=== PATIENT | male | born 1950 | race Caucasian/White ===

== ENCOUNTER → 2019-01-16 10:16 | Outpatient (CLI) | payer MEDICARE, OTHER, SELFPAY ==
[2016-04-17 13:36] VITALS: BMI 30.6
[2019-01-11 08:28] VITALS: BMI 32.9
[2019-01-16 12:08] LABS: PSA,Total - Annual Screen > 2000.00 ng/mL (0.00-4.00)
[2019-01-16 17:01] LABS: Bacteria 0 SEEN /hpf (None Seen); Mucous, Urine 0 SEEN /hpf (<or=2+); Red Blood Cells-Urine 0 SEEN /hpf (0-5); Squamous Epithelial Cells - UA 0 SEEN /hpf (0-5); White Blood Cells 0 SEEN /hpf (0-5)
[2019-01-16 17:12] LABS: Color, Urine Yellow (Yellow); Glucose, Dipstick Normal (Normal); Ketone-Dipstick Negative (Negative); Leukocyte Esterase-Dipstick Negative /ul (Negative); Nitrite-Dipstick Negative (Negative); Occult Blood-Urine 25 /ul (Negative); Protein-Dipstick Negative (Negative); Specific Gravity, Urine 1.015 (1.002-1.030); Urine Bilirubin Dipstick Negative (Negative); Urine Clarity Clear (Clear); Urine Urobilinogen Normal (Normal)
== END ==
PROVIDERS: Family Provider Family Medicine; PCP Family Medicine; Referring Provider Nurse Practitioner Adult Health; Visit Provider Nurse Practitioner Adult Health
DX: R31.9 Hematuria, unspecified (principal); Z12.5 Encounter for screening for malignant neoplasm of prostate
CPT/HCPCS: 36415; 81001; 84153; G0103

== ENCOUNTER → 2019-01-24 08:15 | Outpatient (CLI) | payer MEDICARE, OTHER, SELFPAY ==
[2016-04-17 13:36] VITALS: BMI 30.6
[2019-01-11 08:28] VITALS: BMI 32.9
--- NOTE | 2019-01-24 08:15 | PROSBIL_PTH ---
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 Regan Guzman MD : 1950 BED: DIS: SPEC #: [id number] RECD: 01/24/19 17:00 STATUS: MAYANK EMIL #: [id number] MEGHAN: 01/24/19 08:[address]: Regan Guzman DEPT: SURGICAL PATHOLOGY RECD BY: Luisito Richards ENTERED: 01/25/19 12:46 SP TYPE: PROST BX FREDDIE DR: Dr. Lisset Barrera DO Tissues: A - PROSTATE RIGHT B - PROSTATE RIGHT C - PROSTATE RIGHT D - PROSTATE LEFT E - PROSTATE LEFT F - PROSTATE LEFT Procedures: PROSTATE BX HEADER OPERATION: Prostate biopsy PRE-OP DIAGNOSIS: Elevated PSA TISSUE SUBMITTED: A - Right apex, B - Right mid, C - Right base, D - Left apex, E - Left mid, F - Left base MICROSCOPIC DIAGNOSIS A. Right prostate, apex, core biopsy: Mild chronic inflammation. B. Right prostate, mid, core biopsy: Benign prostatic tissue. C. Right prostate, base, core biopsy: Minimal chronic inflammation. D. Left prostate, apex, core biopsy: Adenocarcinoma: Rohit grade: 7 (3+4) Cores involved: 1 out of 1 core Tissue involved: 80% Greatest tumor length: 5 mm Perineural Invasion: Present E. Left prostate, mid, core biopsy: Adenocarcinoma: Rohit grade: 10 (5+5) Cores involved: 1 out of 1 core Tissue involved: 100% Greatest tumor length: 7.5 mm F. Left prostate, base, core biopsy: Adenocarcinoma: Rohit grade: 7 (4+3) Cores involved: 1 out of 1 core Tissue involved: 100% Greatest tumor length: 13 mm Perineural Invasion: Present AM:dilan 01/26/19 COMMENT Case has been reviewed in consultation with Dr. Mckay who concurs with the above diagnosis. IDC:SJ MICROSCOPIC DESCRIPTION Slides are reviewed. GROSS DESCRIPTION A - Received is one container designated prostate, right apex. The specimen consists of one elongated fragment of light taveras-white soft tissue measuring 0.8 cm in length and 0.1 cm in diameter. The specimen is totally submitted in one cassette. B - Received is one container designated prostate, right mid. The specimen consists of one elongated fragment of light taveras-white soft tissue measuring 1 cm in length and 0.1 cm in diameter. The specimen is totally submitted in one cassette. C - Received is one container designated prostate, right base. The specimen consists of one elongated fragment of light taveras-white soft tissue measuring 1.2 cm in length and 0.1 cm in diameter. The specimen is totally submitted in one cassette. D - Received is one container designated prostate, left apex. The specimen consists of one elongated fragment of light taveras-white soft tissue measuring 0.6 cm in length and 0.1 cm in diameter. The specimen is totally submitted in one cassette. E - Received is one container designated prostate, left mid. The specimen consists of one elongated fragment of light taveras-white soft tissue measuring 1 cm in length and 0.1 cm in diameter. The specimen is totally submitted in one cassette. F - Received is one container designated prostate, left base. The specimen consists of one elongated fragment of light taveras-white soft tissue measuring 1.5 cm in length and 0.1 cm in diameter. The specimen is totally submitted in one cassette. / SJ:rg 01/25/19 TC:0 CPT: G0146
== END ==
PROVIDERS: Family Provider Family Medicine; PCP Family Medicine; Referring Provider Urology; Visit Provider Urology
DX: R97.20 Elevated prostate specific antigen [PSA] (principal)
CPT/HCPCS: 88305; G0416

== ENCOUNTER → 2019-01-31 07:39 | Outpatient (CLI) | payer MEDICARE, OTHER, SELFPAY ==
[2016-04-17 13:36] VITALS: BMI 30.6
[2019-01-11 08:28] VITALS: BMI 32.9
--- NOTE | 2019-01-31 07:42 | CT_ITS ---
STUDY: CT ABDOMEN AND PELVIS WITH CONTRAST REASON FOR EXAM: Male, 68 years old. Prostate carcinoma. Elevated PSA RADIATION DOSAGE (If Supplied By Facility): CTDIvol = ( 19.24 ) mGy, DLP = ( 2197.11 ) mGycm TECHNIQUE: Transaxial images were obtained from the dome of the diaphragm to the symphysis pubis with oral contrast. Isovue 300 100 IV/Oral was administered. Sagittal and coronal images were reconstructed. Individualized dose optimization techniques were used for this CT. COMPARISON: 11/22/2015 FINDINGS: The visualized lung bases are unremarkable. Mild cardiomegaly. Normal liver. There are multiple gallstones. Densely calcified mass in the left portion of the spleen measuring 2.5 x 2.1 cm. Stable from prior exam, otherwise spleen is within normal limits. Normal pancreas. Normal bilateral adrenal glands. Bilateral large nonenhancing renal cysts. Otherwise, unremarkable kidneys. These are stable from prior exam. Normal visualized stomach. Normal small intestine. There are multiple colonic diverticula consistent with diverticulosis. The appendix is visualized and appears normal. Surrounding the aorta, there is extremely large and bulky lymphadenopathy. Largest conglomerate of lymph nodes to the left of the aorta measuring 6.8 x 5.2 cm. There is extension of bulky diffuse lymphadenopathy along the left pelvic sidewall as well as multiple abnormal lymph nodes in the right pelvic sidewall. Normal inferior vena cava. Urinary bladder is partially decompressed. Questionable wall thickening. Markedly enlarged and heterogeneous enhancing prostate. There is a small umbilical hernia containing fat. Numerous punctate sclerotic foci throughout the osseous structures compatible with metastatic disease. Not clearly seen on the exam from November 2015 CT/Abdomen/Pelvis WITH Contrast IMPRESSION: 1. Extremely bulky lymphadenopathy in the retroperitoneal and para-aortic distribution as well as the left greater than right pelvic sidewall. Could represent lymphoma versus metastatic prostate carcinoma or new malignancy. 2. Development of sclerotic foci throughout the osseous structures compatible with metastatic disease, new from exam in 2015 3. Stable calcified splenic mass 4. Stable bilateral renal cysts 5. Stable cholelithiasis without evidence of acute cholecystitis Electronically Signed: Brandon Navarrete DO at 12:16 EDT Tel , Service support ,
[2019-01-31 08:01] LABS: CREATININE FINGERSTICK 1.3 mg/dL (0.70-1.30)
== END ==
PROVIDERS: Family Provider Family Medicine; PCP Family Medicine; Referring Provider Urology; Visit Provider Urology
DX: C61 Malignant neoplasm of prostate (principal)
CPT/HCPCS: 74177; Q9967

== ENCOUNTER → 2019-02-06 10:43 | Outpatient (CLI) | payer MEDICARE, OTHER, SELFPAY ==
[2016-04-17 13:36] VITALS: BMI 30.6
[2019-01-11 08:28] VITALS: BMI 32.9
--- NOTE | 2019-02-06 10:46 | NM_ITS ---
CLINICAL: 68-year-old male with reported history of carcinoma of the prostate. WHOLE BODY 99m Tc MDP RADIONUCLIDE BONE SCINTIGRAPHY COMPARISON: CT of the abdomen-pelvis 01/31/2019 FINDINGS: Following the intravenous administration of 25.0 mCi of 99m Tc MDP, whole body bone images reveal: 1. Increased radiopharmaceutical concentration is identified in the bilateral anterolateral sixth ribs, left posterior lateral 10th rib. 2. Facilitated uptake is noted in the patellofemoral compartments of both knees, the acromioclavicular compartments of the bilateral shoulders, glenohumeral compartment of the right shoulder, sternoclavicular compartment of the left shoulder, upper cervical spine posteriorly on the right. 3. The remaining skeletal structures are scintigraphically unremarkable with normal-appearing renal images and urinary bladder activity identified. NM/Bone Scan Whole Body IMPRESSION: 1. The increase in radiopharmaceutical concentration identified in the bilateral ribs may be further investigated with plain film radiography in the setting of known prostate carcinoma. 2. Degenerative arthritis appears expressed in the right and left shoulders, bilateral knees, the upper cervical spine. 3. There is no definitive typical scintigraphic evidence of diffuse skeletal metastatic disease on the current examination. The multiple sclerotic changes noted within the axial skeletal structures reported on CT of the abdomen and pelvis dated 01/31/2019 demonstrate no scintigraphic correlate on the present conventional bone scintigraphy study. Electronically Signed: Leonel Harrington DO at 10:05 EDT Tel , Service support ,
== END ==
PROVIDERS: Family Provider Family Medicine; PCP Family Medicine; Referring Provider Urology; Visit Provider Urology
DX: C61 Malignant neoplasm of prostate (principal)
CPT/HCPCS: 78306

== ENCOUNTER 2019-02-10 06:41 | Day surgery (SDC) | payer MEDICARE, OTHER, SELFPAY ==
[2016-04-17 13:36] VITALS: BMI 30.6
[2019-02-09 09:28] VITALS: BMI 33.0
--- NOTE | 2019-02-09 09:49 | HP_ITS ---
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 Allergies sulfamethoxazole [From Bactrim] Allergy (Verified 02/09/19 09:27) Rash trimethoprim [From Bactrim] Allergy (Verified 02/09/19 09:27) Rash Medications Lisinopril [Zestril] 40 mg PO DAILY 12/09/15 [History Confirmed 02/09/19] Metoprolol Tartrate [Lopressor (Beta [place])] 25 mg PO BID 12/09/15 [History Confirmed 02/09/19] amlodipine 5 mg tablet 10 mg PO DAILY tab 01/03/18 [History Confirmed 02/09/19] [facility] Medical History Hairy cell leukemia (Chronic) Sleep apnea (Chronic) Hypertension (Chronic) Obesity (Chronic) Elevated PSA (Acute) Prostate cancer (Acute) Agranulocytosis secondary to cancer chemotherapy (Acute) Drug induced neutropenia (Acute) Fatty liver disease (Acute) Hematuria (Acute) Pancytopenia (Acute) High risk medication use (Chronic) KATHY (obstructive sleep apnea) (Chronic) Kidney stones (Resolved) Surgical History History of prostate biopsy (Acute) Basal cell carcinoma of nose (Resolved) Family History Mother Hypertension CVA (cerebral vascular accident) Breast cancer Sister CVA (cerebral vascular accident) Social History Smoking Status: Never smoker second hand exposure: No alcohol intake: never substance use type: does not use ROS General General: No weight change, appetite, fatigue, colon cancer, breast cancer or weakness Additional Details: hx hairy cell leukemia, prostate cancer HEENT HEENT: No difficulty swallowing, eye injury, eye surgery, swollen glands or hoarseness Cardio Cardiovascular: Yes high blood pressure; no murmur, pacemaker, heart disease, atrial fibrillation, heart attack, heart stent, palpitations, shortness of breat with exertion or chest pain Resp Respiratory: No shortness of breath, Yes sleep apnea, No cough, No COPD, No asthma, No emphysema, No wheezing Gastro Gastrointestinal: No abdominal pain, No nausea or vomiting, No diarrhea, No constipation, No blood in stool, No acid reflux, No hemorrhoids, No ulcers, No gallbladder problem, No black,tarry stools Neuro Neurologic: No weakness Exam Const General: cooperative, healthy appearing, comfortable, no acute distress Nutritional Appearance: overweight Orientation: alert, awake, oriented x3 HENMT Head: normal to inspection Eyes General: appearance normal, both eyes and all related structures Resp Effort & Inspection: normal respiratory effort Auscultation: clear to auscultation bilaterally Cardio Rate: regular rate Rhythm: regular rhythm Heart Sounds: no murmurs GI Palpation: soft, no hepatosplenomegaly Auscultation: normal bowel sounds Skin General: no rashes or lesions noted Neuro General: alert, awake Extrem Other: 3+ bilateral lower extremity pitting edema Psych Affect: normal affect Assessment & Plan Problems 1. 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 Unfortunately has metastatic prostate cancer to pelvic lymph nodes. He has significant bilateral lower extremity pitting edema likely related to outflow drainage per lymphatic issues. I propose for him a right internal jugular port placement. We have discussed the technique, benefit, risks, alternatives. He has had an opportunity to ask and have questions answered. He is hoping to be able to start chemotherapy next week. We will try to schedule and expedite his care. In so doing I anticipate placing a port for him tomorrow. We will schedule and expedite management as noted. He is comfortable with this approach. I very much appreciate the kind opportunity of assisting with surgical care. CC: Drs. Denis and Holly and Sneha Jacobs M.D., F.A.C.S. 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
[2019-02-10] VITALS (11 sets, daily range): BP systolic 97–135; BP diastolic 57–79; PULSE 46–54; RESP 16–18; TEMP 36.3–36.6; O2SAT 90–96; BMI 32.8
[2019-02-10] MEDS: Cefazolin 2 GM in 0.9% Normal Saline 100 ML IV (09:12)
--- NOTE | 2019-02-10 09:12 | DCINST_ITS ---
Discharge Diet: Light diet - advance as tolerated - if you have questions about your diet instructions, please talk to you doctor. Discharge Activity: May Not Drive - for 1 day or while taking narcotic pain medicine. May shower in (days): 1 Lifting Restrictions: 10 pounds Call your doctor if your incision/area has: Continuous Slow Oozing, Sudden Increased Bleeding, Increased Pain/ Swelling, Increased Redness, Foul Smelling Discharge Call your doctor if you observe: Fever of 101 or Higher Suture Line Care: Avoid Pulling/Pushing, Avoid Pinching/Bending Additional Dressing/Incision Instructions:: Change or remove dressing in 4 days. Leave steri-strips in place for 1 week. Allergies/Adverse Reactions: Allergies sulfamethoxazole [From Bactrim] Allergy (Verified 02/09/19 12:44) Rash trimethoprim [From Bactrim] Allergy (Verified 02/09/19 12:44) Rash Medications to take at Discharge Lisinopril [Zestril] 40 mg PO DAILY 12/09/15 Metoprolol Tartrate [Lopressor (Beta [place])] 25 mg PO BID 12/09/15 amlodipine 5 mg tablet 10 mg PO DAILY tab 01/03/18 Hydrocodone Bitart/Apap 5-325 [[place] 5MG-325MG] 1 tab PO Q6H PRN PRN 2 Days #5 tab 02/10/19 The following prescriptions were given: Hydrocodone Bitart/Apap 5-325 [[place] 5MG-325MG] 1 tab PO Q6H PRN PRN 2 Days #5 tab PRN Reason: Pain Primary Care Physician: Abel Barrera DO [Primary Care Provider] - Test Results: Test results from this visit will be discussed in further detail at your follow- up appointment, if applicable. Please Follow Up With: Tremayne Jacobs MD - [phone] When: Further office appts. can be as you need
[2019-02-10] MEDS: Bupivacaine Mpf 0.5% 30 ML VIAL (09:30)
--- NOTE | 2019-02-10 09:45 | PCM.OPRPT ---
Problem List (1) Prostate cancer metastatic to bone Status: Acute Report of Operation Date of Procedure: 02/10/19 Pre-Operative Diagnosis: Metastatic prostate cancer Post-Operative Diagnosis: same Surgery/Procedure Performed:: Right internal jugular 6 [place] power port placement Description of Surgical Findings:: Timeout and informed consent was obtained. 68-year-old gent was taken to the operating room placed on the table Ancef 2 g given intravenous preoperatively he underwent monitored anesthesia care and local anesthetic the right neck and chest were sterilely prepped and draped ultrasound was used to identify the right internal jugular vein under ultrasound guidance 1% lidocaine mixed 50-50 with 0.5% Marcaine was used as a local anesthetic total of 13 cc was used. Local was instilled micropuncture needle inserted micropuncture wire inserted local instilled down upon the chest wall transverse incision was created and electrocautery was used to make the subtenons pocket the tubing was tunneled from the chest to the neck site a micropuncture sheath dilator was placed over the wire the wire and dilator were removed and an 035 J-wire was inserted sheath dilator was inserted after fluoroscopic confirmation the wire and to remove the catheters into the sheath the sheath was split the catheter was positioned at the SVC atrial junction it was amputated length connected to the port and secured there with a port attachment device the port was placed in the pocket and secured there with interrupted 2-0 silk the pocket was closed interrupted 3-0 Vicryl subdermal stitches the neck was closed with interrupted 5-0 Vicryl. Steri-Strips and Telfa and OpSite dressings applied. Sponge and instrument and needle counts were reported the surgery were correct. Blood loss was minimal. Specimens none. Drains none. Blood loss minimal. The patient was taken to the recovery area in satisfactory condition without apparent complication and stat portable chest x-ray is pending. Tremayne Jacobs M.D., F.A.C.S. Type of Anesthesia:: Local MAC Anesthesiologist: Lv Langston
--- NOTE | 2019-02-10 10:05 | RAD_ITS ---
STUDY: X-RAY CHEST REASON FOR EXAM: Male, 68 years old. Line placement TECHNIQUE: Portable upright chest COMPARISON: 12/09/2015 FINDINGS: Right Mediport catheter tip in distal SVC. No effusion or pneumothorax, clear lungs. Stable cardiomegaly. Ectatic aortic arch. No acute osseous or upper abdominal process. RAD/Chest 1 View (Portable) IMPRESSION: Catheter tip in distal SVC. No acute postprocedure complication. Electronically Signed: Leonel Junior MD at 10:43 EDT Tel , Service support ,
== END 2019-02-10 11:48 | disposition home or self-care (01) ==
LOC: SDC 06:41 → AC 06:42
PROVIDERS: Family Provider Family Medicine; PCP Family Medicine; Referring Provider Surgery; Visit Provider Surgery
PROC: (CPT 36561; principal; 2019-02-10 08:30)
DX: Z45.2 Encounter for adjustment and management of vascular access device (principal); C61 Malignant neoplasm of prostate; C79.51 Secondary malignant neoplasm of bone; Z85.6 Personal history of leukemia; Z79.899 Other long term (current) drug therapy; I10 Essential (primary) hypertension; E66.9 Obesity, unspecified; Z68.32 Body mass index [BMI] 32.0-32.9, adult; Z71.3 Dietary counseling and surveillance; G47.33 Obstructive sleep apnea (adult) (pediatric)
CPT/HCPCS: 00532; 36561; 71045; 77001; J7120

== ENCOUNTER → 2019-02-13 14:11 | Outpatient (CLI) | payer MEDICARE, OTHER, SELFPAY ==
[2016-04-17 13:36] VITALS: BMI 30.6
[2019-02-08 10:33] VITALS: BMI 33.0
[2019-02-10 06:59] VITALS: BMI 32.8
--- NOTE | 2019-02-13 14:13 | CT_ITS ---
STUDY: CT CHEST/THORAX WITH CONTRAST REASON FOR EXAM: Male, 68 years old. Prostate cancer, elevated PSA. History of hairy cell leukemia treated with chemotherapy. RADIATION DOSAGE (If Supplied By Facility): CTDIvol = ( 19.11 ) mGy, DLP = ( 653.43 ) mGycm TECHNIQUE: Transaxial imaging was performed following intravenous administration of 100 IV Isovue 300. Multiplanar coronal and sagittal images were reformatted. Individualized dose optimization techniques were used for this CT. COMPARISON: Portable AP upright chest x-ray post port placement February 10, 2019; CTA chest November 27, 2015. FINDINGS: The hub of the indwelling Port-A-Cath is in the medial soft tissues of the anterior upper left chest wall. Catheter tip projects just below the cavoatrial junction There is minor subsegmental line loss in the medial posterior right lung base. Left lung is clear and expanded There is no demonstrated pleural abnormality. Normal heart and pericardium. Normal mediastinum. Normal hilar regions. Normal enhanced pulmonary arteries. There is atherosclerotic calcification of the aortic arch. There is some tortuosity of the distal descending thoracic aorta. There are numerous subcentimeter rounded sclerotic densities scattered in the visualized osseous structures. There are degenerative changes of the visualized lower cervical spine and thoracolumbar juncture. Slight anterior wedging of the T11 and T12 vertebrae as well as straightening of the thoracic kyphosis. Incidental note of chronic appearing discontinuity in the costal cartilage calcifications of the bilateral first ribs. There are number of subcentimeter rim calcified stones in the gallbladder. No mural thickening of the gallbladder nor pericholecystic fluid to indicate cholecystitis. Not fully included in the field of view, there are large cortical cysts of the visualized upper pole of each kidney. On the right this measures 9 x 8.5 cm, while on the left, the cyst is 9.[address]/Chest WITH Contrast IMPRESSION: 1. No acute cardiopulmonary disease. 2. Right chest wall Port-A-Cath in place. 3. Numerous subcentimeter rounded sclerotic densities scattered in the visualized osseous structures, new since 2016. These did not show overtly abnormal uptake on nuclear medicine bone scan of February 06, 2019, however. 4. Gallstones. No CT sign of acute cholecystitis. 5. Not fully included in field of view, there are large cortical cysts in the upper poles of the bilateral kidneys. Electronically Signed: Scotty Salinas MD at 10:12 EDT , Service support ,
== END ==
PROVIDERS: Family Provider Family Medicine; PCP Family Medicine; Referring Provider Internal Medicine Medical Oncology; Visit Provider Internal Medicine Medical Oncology
DX: C61 Malignant neoplasm of prostate (principal)
CPT/HCPCS: 71260; Q9967

== ENCOUNTER → 2019-06-20 | Outpatient (CLI) | payer MEDICARE, OTHER, SELFPAY ==
[2016-04-17 13:36] VITALS: BMI 30.6
[2019-06-15 11:00] VITALS: BMI 34.2
[2019-06-20 09:38] LABS: Absolute Lymphocyte Count 0.82 X10^3/uL (0.83-4.51); Absolute Neutrophil Count 3.7 X10^3/uL (2.0-7.7); Basophil# 0.07 X10^3/uL; Basophil% 1.3 % (0-1); Eosinophil# 0.04 X10^3/uL; Eosinophils% 0.7 % (0-5); Hematocrit 38.2 % (40-54); Hemoglobin 12.6 g/dL (13.0-16.5); Lymphocyte # 0.82 X10^3/ul (4.0); Lymphocyte % 15.1 % (19-41); Mean Corpuscular Hgb 29.1 pg (27.0-32.0); Mean Corpuscular Volume 88.2 fL (80-94); Mean Platelet Vol. 9.9 fl (6.2-12.0); Monocyte# 0.74 X10^3/uL; Monocyte% 13.7 % (0-10); NRBC Flagged by Analyzer 0 % (0-5); Neutrophil # 3.72 X10^3/uL (2.7-7.7); Neutrophil % 68.6 % (47-70); Platelet Count 214 K/mm3 (150-450); RBC Distribution Width CV 15.3 % (11.6-14.6); RBC Distribution Width SD 49.1 fl (35.1-43.9); Red Blood Count 4.33 M/mm3 (4.6-6.2); White Blood Count 5.4 K/mm3 (4.4-11.0)
--- NOTE | 2019-06-20 09:39 | NM_ITS ---
CLINICAL: 69-year-old male with history of carcinoma of the prostate with recent traumatic fall and resultant left anterior chest wall pain. WHOLE BODY 99m Tc MDP RADIONUCLIDE BONE SCINTIGRAPHY COMPARISON: Previous whole body bone scintigraphy study dated 02/06/2019, CT of the chest report 02/13/2019 FINDINGS: Following the intravenous administration of 25.2 mCi of 99m Tc MDP, whole body bone images reveal: 1. Newly identified increased tracer concentration is noted in the left anterior fifth-sixth ribs at the costochondral junction, linear in presentation defined in the longitudinal plane. 2. Enhanced tracer concentration is presently visualized in the bilateral knee articulations, right-left shoulders, upper cervical spine posteriorly on the right, right-left ankle articulations, bilateral forefoot. 3. The remaining skeletal structures are scintigraphically unremarkable with normal-appearing renal images and urinary bladder activity identified. An increase in radiotracer distribution remains evident in the bilateral mandible and maxilla most consistent with periodontal disease and/or periostitis. NM/Bone Scan Whole Body IMPRESSION: 1. The increase in radiopharmaceutical concentration identified in the left anterior fifth-sixth ribs is most consistent with trauma-fracture. 2. Degenerative arthritis is defined in the bilateral knees and shoulders, cervical spine, ankles bilaterally, right-left forefoot. 3. Overall compared to the previous whole-body bone scintigraphy study dated 02/06/2019, there is current expression of apparent acute trauma-fracture involving the left anterior fifth-sixth ribs as described above. There is no significant interval change with no current typical scintigraphic evidence of diffuse axial skeletal metastatic disease on the present examination. Electronically Signed: Leonel Harrington DO at 12:23 EDT Tel , Service support ,
== END | disposition home or self-care (01) ==
LOC: NM 09:27
PROVIDERS: Family Provider Family Medicine; PCP Family Medicine; Referring Provider Nurse Practitioner Family; Visit Provider Nurse Practitioner Family
DX: C61 Malignant neoplasm of prostate (principal)
CPT/HCPCS: 36415; 78306; 85025

== ENCOUNTER → 2019-06-27 | Outpatient (CLI) | payer MEDICARE, OTHER, SELFPAY ==
[2016-04-17 13:36] VITALS: BMI 30.6
[2019-06-15 11:00] VITALS: BMI 34.2
--- NOTE | 2019-06-27 08:02 | CT_ITS ---
STUDY: CT ABDOMEN AND PELVIS WITHOUT CONTRAST REASON FOR EXAM: Male, 69 years old. Prostate cancer. Also with history of hairy cell leukemia RADIATION DOSAGE (If Supplied By Facility): CTDIvol = ( 16.54 ) mGy, DLP = ( 1249.04 ) mGycm TECHNIQUE: Transaxial images were obtained from the dome of the diaphragm to the symphysis pubis without oral contrast, and without intravenous contrast. Sagittal and coronal images were reconstructed. Individualized dose optimization techniques were used for this CT. COMPARISON: 02/13/2019 and January 31, 2019 FINDINGS: The visualized lung bases are unremarkable. The visualized portions of the heart are within normal limits. Normal liver. There are multiple gallstones. Densely calcified granuloma in the left lobe of the spleen measuring 2.3 x 2.4 cm. Remainder of the spleen is within normal limits Normal pancreas. Normal bilateral adrenal glands. Unchanged bilateral nonenhancing renal cysts, otherwise the kidneys Normal visualized stomach. Normal small intestine. There are multiple colonic diverticula consistent with diverticulosis. The appendix is visualized and appears normal. Normal abdominal aorta. Normal inferior vena cava. As compared to exam from January 31, there has been extensive reduction in size of bulky retroperitoneal and para-aortic lymphadenopathy. The largest lymph node remains in the left para-aortic region near the left inferior pole of the kidney measuring 2.9 x 2.6 cm. This lymph node previously measured 7.1 x 5.2 cm. Normal urinary bladder. Normal visualized prostate gland. Normal abdominal wall. Again noted are sclerotic foci throughout the osseous structures CT/Abdomen/Pelvis W IV Cont ONLY IMPRESSION: 1. As compared to exam from January, there has been very favorable response with marked decrease in size in numerous retroperitoneal and para-aortic bulky lymphadenopathy. 2. Stable sclerotic foci throughout the osseous structures 3. Stable bilateral renal cysts and cholelithiasis Electronically Signed: Brandon Navarrete DO at 8:38 EDT Tel , Service support ,
== END | disposition home or self-care (01) ==
LOC: CT 07:48
PROVIDERS: Family Provider Family Medicine; PCP Family Medicine; Referring Provider Nurse Practitioner Family; Visit Provider Nurse Practitioner Family
DX: K80.20 Calculus of gallbladder without cholecystitis without obstruction (principal); N28.1 Cyst of kidney, acquired; C61 Malignant neoplasm of prostate; Z85.6 Personal history of leukemia
CPT/HCPCS: 74177; Q9967

== ENCOUNTER → 2019-09-25 07:39 | Outpatient (CLI) | payer MEDICARE, OTHER, SELFPAY ==
[2016-04-17 13:36] VITALS: BMI 30.6
[2019-07-06 10:11] VITALS: BMI 33.7
[2019-08-15 10:22] VITALS: BMI 33.9
[2019-08-22 13:32] VITALS: BMI 33.8
--- NOTE | 2019-09-25 07:49 | CT_ITS ---
STUDY: CT ABDOMEN AND PELVIS WITH CONTRAST REASON FOR EXAM: Male, 69 years old. Prostate cancer follow-up RADIATION DOSAGE (If Supplied By Facility): CTDIvol = ( 17.06 ) mGy, DLP = ( 1323.12 ) mGycm TECHNIQUE: Transaxial images were obtained from the dome of the diaphragm to the symphysis pubis without oral contrast. IV/Oral Isovue 300 100 was administered. Sagittal and coronal images were reconstructed. Individualized dose optimization techniques were used for this CT. COMPARISON: June 27, 2019 FINDINGS: Minor atelectasis within the dependent portion of the lungs.. The visualized portions of the heart are within normal limits. Normal liver. Old calcified gallstones without evidence for acute cholecystitis. Rim calcified mass in normal-sized spleen likely representing granuloma Normal pancreas. Normal bilateral adrenal glands. No evidence for renal obstruction or ureteral calculus. There is a large cyst in the upper pole the right kidney and multiple approximately 5 cysts left kidney. Normal visualized stomach. Normal small intestine. Diverticular changes of the colon without evidence for acute diverticulitis The appendix is visualized and appears normal. Atherosclerotic changes of the aorta without evidence for aneurysm Normal inferior vena cava. Multiple mildly enlarged periaortic and aortocaval nodes largest measuring approximately 1.6 cm. Mildly enlarged prostate. Incompletely distended mildly thick-walled bladder. Small fat-containing umbilical wall hernia.. Lumbar spine demonstrates mild spondylosis. There are multiple sclerotic densities seen throughout the lumbar spine and pelvis which may be consistent with metastatic disease. The lymph nodes have decreased in size since prior study. No other significant change since prior study CT/Abdomen/Pelvis WITH Contrast IMPRESSION: Persistent adenopathy with interval reduction in size since prior study. PET scan may be helpful for further evaluation Multiple scattered sclerotic densities in the lumbar spine and pelvis which may be consistent with metastatic disease. Cholelithiasis without evidence for acute cholecystitis Other findings as above Electronically Signed: Shashank Dick MD at 16:57 EST , Service support ,
[2019-09-25 08:01] LABS: CREATININE FINGERSTICK 0.9 mg/dL (0.70-1.30); EGFR FINGERSTICK > 60.0000 mL/min (>60)
[2019-09-25 08:30] LABS: Absolute Lymphocyte Count 1.12 X10^3/uL (0.83-4.51); Absolute Neutrophil Count 3.9 X10^3/uL (2.0-7.7); Basophil# 0.04 X10^3/uL; Basophil% 0.7 % (0-1); Eosinophil# 0.25 X10^3/uL; Eosinophils% 4.2 % (0-5); Hematocrit 40.3 % (40-54); Lymphocyte # 1.12 X10^3/ul (4.0); Mean Corp Hgb Conc 32.3 g/dL (32-36); Mean Corpuscular Hgb 28.7 pg (27.0-32.0); Mean Platelet Vol. 10.6 fl (6.2-12.0); Monocyte# 0.54 X10^3/uL; Monocyte% 9.1 % (0-10); NRBC Flagged by Analyzer 0 % (0-5); Neutrophil # 3.94 X10^3/uL (2.7-7.7); Neutrophil % 66.7 % (47-70); Platelet Count 213 K/mm3 (150-450); RBC Distribution Width CV 14.6 % (11.6-14.6); RBC Distribution Width SD 46.8 fl (35.1-43.9); Red Blood Count 4.53 M/mm3 (4.6-6.2); White Blood Count 5.9 K/mm3 (4.4-11.0)
[2019-09-25 08:52] LABS: ALB/GLOB Ratio 0.9 RATIO (0.9-2.4); AST(SGOT) 16 U/L (15-37); Alanine Aminotransfer ALT/SGPT 28 U/L (16-61); Albumin, Serum 3.7 g/dL (3.2-5.0); Alkaline Phosphatase 70 U/L (45-117); Anion Gap 6 (5-15); BUN 20 mg/dL (7-18); BUN/Creat Ratio 19.2 RATIO (10-20); Calcium,Total 9.1 mg/dL (8.5-10.1); Chloride 104 mmol/L (98-107); Creatinine, Serum 1.04 mg/dL (0.70-1.30); EST Glomerular Filtration Rate 75 mL/min (>60); Est Glom Filt Rate - Afr Amer 91 mL/min (>60); Globulin 4.1 g/dL (2.2-4.2); Glucose 109 mg/dL (74-106); LDH 189 U/L (87-241); Potassium 3.9 mmol/L (3.5-5.1); Protein, Total 7.8 g/dL (6.4-8.2); Sodium Level 140 mmol/L (136-145)
[2019-09-25 15:44] LABS: Xtra Tube EP Lab EXTRA TUBE
== END ==
PROVIDERS: Family Provider Family Medicine; PCP Family Medicine; Referring Provider Internal Medicine Medical Oncology; Visit Provider Internal Medicine Medical Oncology
DX: C61 Malignant neoplasm of prostate (principal)
CPT/HCPCS: 36415; 74177; 80053; 83615; 84153; 85025; Q9967; A4216

== ENCOUNTER → 2020-03-26 11:21 | Outpatient (CLI) | payer MEDICARE, OTHER, SELFPAY ==
[2019-08-22 13:32] VITALS: BMI 33.8
[2020-01-02 10:14] VITALS: BMI 35.5
== END ==
PROVIDERS: PCP Family Medicine; Visit Provider Urology
DX: C61 Malignant neoplasm of prostate (principal)
CPT/HCPCS: 36415; 84153

== ENCOUNTER → 2020-04-16 12:43 | Outpatient (CLI) | payer MEDICARE, OTHER, SELFPAY ==
[2019-08-22 13:32] VITALS: BMI 33.8
[2019-11-02 12:08] VITALS: BMI 34.7
[2020-01-02 10:14] VITALS: BMI 35.5
--- NOTE | 2020-04-16 12:44 | CT_ITS ---
STUDY: CT ABDOMEN AND PELVIS WITH CONTRAST REASON FOR EXAM: Male, 70 years old. PT STATED HX METASTATIC PROSTATE CA RADIATION DOSAGE (If Supplied By Facility): CTDIvol = ( 18.41 ) mGy, DLP = ( 1341.91 ) mGycm TECHNIQUE: Transaxial images were obtained from the dome of the diaphragm to the symphysis pubis without oral contrast. IV 100mL Isovue-300 was administered. Sagittal and coronal images were reconstructed. Individualized dose optimization techniques were used for this CT. COMPARISON: Comparison is made with prior examination dated September 25, 2019. FINDINGS: The visualized lung bases are unremarkable. Coronary artery calcification. Normal liver. There are multiple small gallstones. Stable 1.9 cm x 2.4 cm densely calcified nodular density in the anterior superior aspect of the spleen. There are pancreatic calcifications in the distribution of the ducts consistent with chronic pancreatitis. Normal bilateral adrenal glands. Stable bilateral renal cysts. The largest cyst in the left kidney measures 9.3 cm x 9.7 cm. The largest cyst in the left kidney measures 9.6 cm x 9 cm. Normal visualized stomach. Normal small intestine. Normal colon. The appendix is visualized and appears normal. There is diffuse atherosclerotic calcification of the abdominal aorta and its major visceral branches., without a demonstrated aneurysm. Normal inferior vena cava. Stable retroperitoneal lymphadenopathy in the left para-aortic region as well as the left common iliac region. Normal urinary bladder. Normal abdominal wall. Stable multiple tiny sclerotic densities seen throughout the lumbar vertebrae. There are diffuse degenerative changes of the visualized lumbar spine. CT/Abdomen/Pelvis WITH Contrast IMPRESSION: Stable retroperitoneal lymphadenopathy. Stable bilateral renal cysts. Electronically Signed: Tre Arauz, at 14:34 EDT , Service support ,
== END ==
PROVIDERS: Family Provider Family Medicine; PCP Family Medicine; Referring Provider Internal Medicine Medical Oncology; Visit Provider Internal Medicine Medical Oncology
DX: C61 Malignant neoplasm of prostate (principal)
CPT/HCPCS: 74177; Q9967

== ENCOUNTER → 2020-10-03 09:59 | Outpatient (CLI) | payer MEDICARE, OTHER, SELFPAY ==
[2019-08-22 13:32] VITALS: BMI 33.8
[2020-04-29 13:26] VITALS: BMI 34.2
[2020-10-03 11:33] LABS: PSA,Total- Diagnostic 7.02 ng/mL (0.0-4.0)
== END ==
PROVIDERS: PCP Family Medicine; Referring Provider Urology; Visit Provider Urology
DX: R97.20 Elevated prostate specific antigen [PSA] (principal)
CPT/HCPCS: 36415; 84153

== ENCOUNTER → 2020-10-25 08:05 | Outpatient (CLI) | payer MEDICARE, OTHER, SELFPAY ==
[2019-08-22 13:32] VITALS: BMI 33.8
[2020-04-29 13:26] VITALS: BMI 34.2
--- NOTE | 2020-10-25 08:06 | CT_ITS ---
STUDY: CT ABDOMEN AND PELVIS WITH CONTRAST REASON FOR EXAM: Male, 70 years old. PROSTATE CA WITH CHEMO 1 YEAR AGO. HISTORY OF HAIRY CELL LEUKEMIA RADIATION DOSAGE (If Supplied By Facility): CTDIvol = ( 15.69 ) mGy, DLP = ( 1125.44 ) mGycm TECHNIQUE: Transaxial images were obtained from the dome of the diaphragm to the symphysis pubis without oral contrast. IV 100ML ISOVUE 300 was administered. Sagittal and coronal images were reconstructed. Individualized dose optimization techniques were used for this CT. COMPARISON: Comparison is made with prior study dated 04/16/2020. FINDINGS: There is evidence of groundglass appearance in both lungs worse on the right side. This is new as compared to prior study. Coronary artery calcification. Normal liver. There are multiple gallstones. Stable 2.1 cm x 2.3 cm densely calcified granuloma in the anterior lateral aspect of the spleen. Normal pancreas. Normal bilateral adrenal glands. Stable bilateral renal cysts. Normal visualized stomach. Normal small intestine. There are multiple colonic diverticula consistent with diverticulosis. The appendix is visualized and appears normal. There is diffuse atherosclerotic calcification of the abdominal aorta, without a demonstrated aneurysm. Normal inferior vena cava. Stable left para-aortic adenopathy as well as left iliac adenopathy. Diffuse bladder wall thickening although the bladder is not completely distended. There is a small umbilical hernia containing fat. There are diffuse degenerative changes of the visualized lumbar spine. Stable tiny sclerotic foci seen throughout the lumbar vertebrae. CT/Abdomen/Pelvis W IV Cont ONLY IMPRESSION: Stable examination. Electronically Signed: Tre Arauz, at 14:50 EST , Service support ,
[2020-10-25] MEDS: 0.9 % NaCl (Sterile) Posiflush 10 mL IV (08:25)
[2020-10-25] MEDS: 0.9% Saline Lock 10 ML Syringe IV (08:34)
[2020-10-25 08:36] LABS: CREATININE FINGERSTICK 0.9 mg/dL (0.70-1.30)
== END ==
PROVIDERS: PCP Family Medicine; Referring Provider Internal Medicine Medical Oncology; Visit Provider Internal Medicine Medical Oncology
DX: C61 Malignant neoplasm of prostate (principal); C77.2 Secondary and unspecified malignant neoplasm of intra-abdominal lymph nodes
CPT/HCPCS: 74177; Q9967; A4216

== ENCOUNTER → 2020-12-25 13:10 | Outpatient (CLI) | payer MEDICARE, OTHER, SELFPAY ==
[2019-08-22 13:32] VITALS: BMI 33.8
[2020-10-29 10:58] VITALS: BMI 32.9
--- NOTE | 2020-12-25 13:14 | RAD_ITS ---
STUDY: X-RAY - RIGHT ANKLE REASON FOR EXAM: Lateral pain and swelling, fall last night. TECHNIQUE: 3 view(s) of the ankle. COMPARISON: None. FINDINGS: There is a mildly displaced fracture of the distal fibula extending to the level of the tibiotalar articulation. There is a nondisplaced posterior malleolar fracture. There are anterior tibiotalar intra-articular bodies. There are posterior and plantar calcaneal enthesophytes. The visualized subtalar, talonavicular, calcaneocuboid and tarsal articulations are normal. There is soft tissue swelling. RAD/Ankle min 3 Views IMPRESSION: Fractures of the distal fibula and posterior malleolus. Electronically Signed: Boaz Jordan MD at 14:07 EST Tel , Service support ,
== END ==
PROVIDERS: PCP Family Medicine; Referring Provider Family Medicine; Visit Provider Family Medicine
DX: S82.831A Other fracture of upper and lower end of right fibula, initial encounter for closed fracture (principal); W00.0XXA Fall on same level due to ice and snow, initial encounter; Y93.9 Activity, unspecified; Y92.9 Unspecified place or not applicable; Y99.9 Unspecified external cause status
CPT/HCPCS: 73610

== ENCOUNTER → 2021-04-22 07:45 | Outpatient (CLI) | payer MEDICARE, OTHER, SELFPAY ==
[2019-08-22 13:32] VITALS: BMI 33.8
[2021-01-14 09:43] VITALS: BMI 32.9
--- NOTE | 2021-04-22 07:49 | CT_ITS ---
STUDY: CT ABDOMEN AND PELVIS WITH CONTRAST REASON FOR EXAM: Male, 71 years old. PROSTATE CANCER-MONITOR. History of hairy cell leukemia. RADIATION DOSAGE (If Supplied By Facility): CTDIvol = ( 16.47 ) mGy, DLP = ( 1232.83 ) mGycm TECHNIQUE: Transaxial images were obtained from the dome of the diaphragm to the symphysis pubis with oral contrast. Oral and amp; IV Readi-CAT and amp; 100mL Isovue-300 was administered. Sagittal and coronal images were reconstructed. Individualized dose optimization techniques were used for this CT. COMPARISON: Comparison is made with prior study dated 10/25/2020. FINDINGS: The visualized lung bases are unremarkable. Coronary artery calcification. Normal liver. There are multiple small gallstones. Stable 2.2 cm x 2.3 VINNY densely calcified granuloma in the anterior lateral aspect of the spleen. There are pancreatic calcifications in the distribution of the ducts consistent with chronic pancreatitis. Normal bilateral adrenal glands. Stable bilateral renal cysts. The largest cyst in the right kidney measures 10.6 cm x 10.6 cm and is in the upper pole. The largest cyst in the left kidney measures 9.8 cm x 9.2 cm and is in the upper pole. Normal visualized stomach. Normal small intestine. Normal colon. The appendix is visualized and appears normal. There is scattered atherosclerotic calcification of the abdominal aorta and its major visceral branches, without a demonstrated aneurysm. Normal inferior vena cava. There is borderline retroperitoneal lymphadenopathy with enlarged nodes no greater than 10mm in the short axis diameter. The largest lymph node measures 1.5 cm in transverse dimension and is located in the left para-aortic region on the left side. This has decreased in size as compared to prior study. Stable 1.8 cm lymph node in the left iliac region. Normal urinary bladder. There is a small umbilical hernia containing fat. There are diffuse degenerative changes of the visualized lumbar spine. Stable tiny sclerotic foci in several lumbar vertebrae. CT/Abdomen/Pelvis WITH Contrast IMPRESSION: Interval decrease in size of the left para-aortic lymphadenopathy. Stable 1.8 cm lymph node in the left iliac region. Electronically Signed: Tre Arauz MD at 11:08 EDT , Service support ,
[2021-04-22 08:10] LABS: CREATININE FINGERSTICK 1.1 mg/dL (0.70-1.30); EGFR FINGERSTICK > 60.0000 mL/min (>60)
[2021-04-22] MEDS: 0.9% Saline Lock 10 ML Syringe IV (08:15)
[2021-04-22 08:34] LABS: Absolute Lymphocyte Count 1.16 X10^3/uL (0.83-4.51); Absolute Neutrophil Count 3.3 X10^3/uL (2.0-7.7); Basophil# 0.05 X10^3/uL; Basophil% 0.9 % (0-1); Eosinophil# 0.26 X10^3/uL; Eosinophils% 4.9 % (0-5); Hematocrit 38.7 % (40-54); Hemoglobin 12.3 g/dL (13.0-16.5); Lymphocyte # 1.16 X10^3/ul (0.83-4.51); Lymphocyte % 21.9 % (19-41); Mean Corp Hgb Conc 31.8 g/dL (32-36); Mean Corpuscular Hgb 28.7 pg (27.0-32.0); Mean Corpuscular Volume 90.4 fL (80-94); Mean Platelet Vol. 10.5 fl (6.2-12.0); Monocyte# 0.48 X10^3/uL; Monocyte% 9.1 % (0-10); NRBC Flagged by Analyzer 0 % (0-5); Neutrophil # 3.32 X10^3/uL (2.7-7.7); Neutrophil % 62.8 % (47-70); Platelet Count 191 K/mm3 (150-450); RBC Distribution Width CV 13.7 % (11.6-14.6); RBC Distribution Width SD 45.2 fl (35.1-43.9); Red Blood Count 4.28 M/mm3 (4.6-6.2); White Blood Count 5.3 K/mm3 (4.4-11.0)
[2021-04-22 08:47] LABS: AST(SGOT) 14 U/L (15-37); Alanine Aminotransfer ALT/SGPT 23 U/L (16-61); Albumin, Serum 3.6 g/dL (3.2-5.0); Alkaline Phosphatase 78 U/L (45-117); Anion Gap 5 (5-15); BUN 16 mg/dL (7-18); BUN/Creat Ratio 17.5 RATIO (10-20); Calcium,Total 8.9 mg/dL (8.5-10.1); Chloride 105 mmol/L (98-107); Creatinine, Serum 0.91 mg/dL (0.70-1.30); EST Glomerular Filtration Rate 87 mL/min (>60); Est Glom Filt Rate - Afr Amer 105 mL/min (>60); Globulin 3.7 g/dL (2.2-4.2); Glucose 110 mg/dL (74-106); LDH 171 U/L (87-241); Protein, Total 7.3 g/dL (6.4-8.2); Sodium Level 139 mmol/L (136-145)
== END ==
PROVIDERS: PCP Family Medicine; Referring Provider Internal Medicine Medical Oncology; Visit Provider Internal Medicine Medical Oncology
DX: C61 Malignant neoplasm of prostate (principal); C77.2 Secondary and unspecified malignant neoplasm of intra-abdominal lymph nodes; Z85.6 Personal history of leukemia
CPT/HCPCS: 74177; 80053; 83615; 85025; Q9967; A4216

== ENCOUNTER → 2021-07-11 09:24 | Outpatient (CLI) | payer MEDICARE, OTHER, SELFPAY ==
[2019-08-22 13:32] VITALS: BMI 33.8
[2021-07-11 10:11] LABS: PSA,Total- Diagnostic 6.22 ng/mL (0.0-4.0)
[2021-07-11 17:44] LABS: Xtra Tube EP Lab EXTRA TUBE
== END ==
LOC: LAB.FUTURE 09:28 → MEDOUTP 15:30
PROVIDERS: PCP Family Medicine; Referring Provider Urology; Visit Provider Urology
DX: C61 Malignant neoplasm of prostate (principal); C77.2 Secondary and unspecified malignant neoplasm of intra-abdominal lymph nodes; R31.9 Hematuria, unspecified
CPT/HCPCS: 36591; 84153; A4216

== ENCOUNTER → 2021-10-13 09:49 | Outpatient (CLI) | payer MEDICARE, OTHER, SELFPAY ==
[2019-08-22 13:32] VITALS: BMI 33.8
[2021-10-13 11:07] LABS: PSA,Total- Diagnostic 9.11 ng/mL (0.0-4.0)
== END ==
PROVIDERS: PCP Family Medicine; Visit Provider Urology
DX: C61 Malignant neoplasm of prostate (principal)
CPT/HCPCS: 36415; 84153

== ENCOUNTER → 2021-10-20 07:38 | Outpatient (CLI) | payer MEDICARE, OTHER, SELFPAY ==
[2019-08-22 13:32] VITALS: BMI 33.8
--- NOTE | 2021-10-20 07:41 | CT_ITS ---
STUDY: CT ABDOMEN AND PELVIS WITH CONTRAST REASON FOR EXAM: Male, 71 years old. PROSTATE CANCER. Follow-up examination. Chemotherapy. RADIATION DOSAGE (If Supplied By Facility): CTDIvol = ( 21.28 ) mGy, DLP = ( 2237.93 ) mGycm TECHNIQUE: Transaxial images were obtained from the dome of the diaphragm to the symphysis pubis without oral contrast. IV 100mL Isovue-370 was administered. Sagittal and coronal images were reconstructed. Individualized dose optimization techniques were used for this CT. COMPARISON: Comparison is made with prior study dated 04/22/2021. FINDINGS: The visualized lung bases are unremarkable. The visualized portions of the heart are within normal limits. Normal liver. There are multiple small gallstones. Stable calcified 2.6 cm x 2 cm nodule in the anterior superior aspect of the spleen. Normal pancreas. Normal bilateral adrenal glands. Once again, there are stable bilateral renal cysts. The largest on the right side measures 10.6 times by 10.6 cm in the upper pole extending along the posterior aspect of the kidney. Multiple cysts are seen in the left kidney. The largest is in the upper pole and measures 9.8 cm x 9.2 cm. Normal visualized stomach. Normal small intestine. Normal colon. The appendix is visualized and appears normal. There is diffuse atherosclerotic calcification of the abdominal aorta and its major visceral branches, without a demonstrated aneurysm. Normal inferior vena cava. There is borderline retroperitoneal lymphadenopathy. This is unchanged. The largest lymph node measures 1.53 cm in transverse dimension and is located in the left para-aortic region. Stable 1.8 cm lymph node in the left iliac chain. Normal urinary bladder. Normal abdominal wall. There are diffuse degenerative changes of the visualized lumbar spine. Stable sclerotic foci seen within the lumbar vertebrae. CT/Abdomen/Pelvis W IV Cont ONLY IMPRESSION: Stable examination. Electronically Signed: Tre Arauz MD at 14:02 EST , Service support ,
[2021-10-20 07:50] LABS: CREATININE FINGERSTICK 1.1 mg/dL (0.70-1.30); EGFR FINGERSTICK > 60.0000 mL/min (>60)
[2021-10-20] MEDS: 0.9% Saline Lock 10 ML Syringe IV (08:00)
== END ==
PROVIDERS: PCP Family Medicine; Referring Provider Nurse Practitioner Family; Visit Provider Nurse Practitioner Family
DX: C61 Malignant neoplasm of prostate (principal)
CPT/HCPCS: 74177; Q9967; A4216

== ENCOUNTER → 2021-11-03 | Outpatient (CLI) | payer MEDICARE, OTHER, SELFPAY ==
[2019-08-22 13:32] VITALS: BMI 33.8
== END | disposition home or self-care (01) ==
LOC: LABSPEC 11-04 10:34
PROVIDERS: PCP Family Medicine; Referring Provider Family Medicine; Visit Provider Family Medicine
DX: Z20.828 Contact with and (suspected) exposure to other viral communicable diseases (principal)
CPT/HCPCS: 87633; 87635; U0005; U0003

== ENCOUNTER 2022-01-14 11:05 | Outpatient (CLI) | payer MEDICARE, OTHER, SELFPAY ==
[2019-08-22 13:32] VITALS: BMI 33.8
[2022-01-14 12:38] LABS: PSA,Total- Diagnostic 9.21 ng/mL (0.0-4.0)
== END 2022-01-14 23:59 | disposition home or self-care (01) ==
LOC: LAB 11:10
PROVIDERS: PCP Family Medicine; Visit Provider Urology
DX: C61 Malignant neoplasm of prostate (principal)
CPT/HCPCS: 36415; 84153; 84403

== ENCOUNTER → 2022-04-07 | Outpatient (CLI) | payer MEDICARE, OTHER, SELFPAY ==
[2019-08-22 13:32] VITALS: BMI 33.8
--- NOTE | 2022-04-07 13:35 | CT_ITS ---
STUDY: CT Abdomen And Pelvis W/ Contrast Injection 04/07/2022 2:27 PM REASON FOR EXAM: Male, 72 years old. ABDOMINAL PAIN MONITOR PROSTATE CA TECHNIQUE: Transaxial images were obtained without oral contrast, and with IV 75mL Isovue-300 intravenous contrast. Individualized dose optimization techniques were used for this CT. COMPARISON: 10.20.21. FINDINGS: The visualized lung bases are unremarkable. The visualized portions of the heart are within normal limits. Stable hypodense lesion in the left lobe of the liver. Se4 IM: 20. There are multiple gallstones. Stable calcified 2.3 cm nodule in the anterior superior aspect of the spleen. Unremarkable pancreas. Unremarkable bilateral adrenal glands. There are hypodensities in the right kidney. These are consistent for cysts. No follow up required. There are hypodensities in the left kidney. These are consistent for cysts. No follow up required. The renal cysts are stable. Unremarkable visualized stomach. Unremarkable small intestine. Unremarkable colon. The appendix is visualized and appears unremarkable. There are calcifications of the abdominal aorta. This is consistent for atherosclerotic disease. There is no abdominal aortic aneurysm. Unremarkable inferior vena cava. There is retroperitoneal lymphadenopathy. This is unchanged. The largest lymph node measures 1.5 cm in transverse dimension and is located in the left common iliac artery region. Stable 1.6 cm lymph node in the left iliac chain. Unremarkable urinary bladder. Minimal inflammatory stranding noted in the right and left subcutaneous fat anteriorly. This can suggest insulin injection sites. There is an umbilical hernia containing fat. Unremarkable osseous structures. CT/Abdomen/Pelvis W IV Cont ONLY IMPRESSION: (NOT LISTED IN ORDER OF SIGNIFICANCE) Left sided pelvic adenopathy is stable. There are multiple gallstones. Other findings as above. Electronically Signed: Mark De La Cruz MD at 14:35 EDT ,
[2022-04-07] MEDS: 0.9% Saline Lock 10 ML Syringe IV (14:01)
== END | disposition home or self-care (01) ==
LOC: CT 13:31
PROVIDERS: PCP Family Medicine; Referring Provider Internal Medicine Medical Oncology; Visit Provider Internal Medicine Medical Oncology
DX: R10.9 Unspecified abdominal pain (principal); C61 Malignant neoplasm of prostate
CPT/HCPCS: 74177; Q9967; A4216

== ENCOUNTER → 2022-07-09 | Outpatient (CLI) | payer MEDICARE, OTHER, SELFPAY ==
[2019-08-22 13:32] VITALS: BMI 33.8
--- NOTE | 2022-07-09 08:02 | CT_ITS ---
STUDY: CT CHEST, ABDOMEN T PELVIS WITH CONTRAST REASON FOR EXAM: Male, 72 years old. h/o prostate ca; rising PSA RADIATION DOSAGE (If Supplied By Facility): CTDIvol = ( 22.75 ) mGy, DLP = ( 2213.05 ) mGycm TECHNIQUE: Transaxial imaging was performed following intravenous administration of IV 100mL Isovue-370. Individualized dose optimization techniques were used for this CT. COMPARISON: Comparison is made with prior CT scan of the chest dated 02/13/[address] scan of the abdomen dated 04/07/2022. FINDINGS: CHEST A right-sided portacatheter is seen with the tip in the superior vena cava. The lungs are normal. There is no demonstrated pleural abnormality. There are calcifications of the coronary arteries. There are multiple small lymph nodes within the mediastinum, which are normal in size and morphology most compatible with reactive lymph hyperplasia. Normal hilar regions. Normal unenhanced pulmonary arteries. Normal aorta arch and descending thoracic aorta. Normal osseous structures. Bilateral renal cysts. Cholelithiasis. ABDOMEN Stable subcentimeter hypodensity in the left lobe of the liver. There are multiple small gallstones. Stable 2.5 cm x 1.7 cm calcified granuloma in the central portion of the spleen. Normal pancreas. Normal bilateral adrenal glands. Stable large bilateral renal cysts. Normal visualized stomach. Normal small intestine. Normal colon. The appendix is visualized and appears normal. There is diffuse atherosclerotic calcification of the abdominal aorta and its major visceral branches., without a demonstrated aneurysm. Normal inferior vena cava. There is borderline retroperitoneal lymphadenopathy with enlarged nodes no greater than 10mm in the short axis diameter. There is a small umbilical hernia containing fat. There are degenerative changes of the visualized lumbar spine. PELVIS Normal urinary bladder. The prostate measures 3.8 cm by 4.7 cm. There is no pelvic fluid. There is no pelvic lymphadenopathy or mass lesion. Normal visualized pelvic arteries. CT/CT Chest, Abd, Pel w/Contrast IMPRESSION: The previously seen small retroperitoneal lymphadenopathy of decreased in size. Multiple small gallstones. Stable bilateral renal cysts. Electronically Signed: Tre Arauz MD at 10:36 EDT ,
[2022-07-09] MEDS: 0.9% Saline Lock 10 ML Syringe IV (08:45)
== END | disposition home or self-care (01) ==
LOC: CT 07:59
PROVIDERS: PCP Family Medicine; Referring Provider Nurse Practitioner Family; Visit Provider Nurse Practitioner Family
DX: C77.2 Secondary and unspecified malignant neoplasm of intra-abdominal lymph nodes (principal); C61 Malignant neoplasm of prostate; R97.20 Elevated prostate specific antigen [PSA]
CPT/HCPCS: 71260; 74177; Q9967; A4216

== ENCOUNTER → 2022-08-03 | Outpatient (CLI) | payer MEDICARE, OTHER, SELFPAY ==
[2019-08-22 13:32] VITALS: BMI 33.8
--- NOTE | 2022-08-03 07:24 | NM_ITS ---
CLINICAL: 72-year-old male with history of carcinoma of the prostate. WHOLE BODY 99m Tc MDP RADIONUCLIDE BONE SCINTIGRAPHY COMPARISON: Previous whole body bone scintigraphy study dated 06/20/2019 FINDINGS: Following the intravenous administration of 25.7 mCi of 99m Tc MDP, whole body bone images reveal: 1. Enhanced radiotracer concentration is defined in the acromioclavicular and sternoclavicular compartments of both shoulders, the lateral glenohumeral compartment of the right shoulder, the patellofemoral and medial tibial of the left and lesser extent right knee articulations, the bilateral ankles, the visualized right wrist. 2. The remaining skeletal structures are scintigraphically unremarkable with normal-appearing renal images and urinary bladder activity identified. NM/Bone Scan Whole Body IMPRESSION: 1. The increase in tracer concentration currently visualized in the bilateral shoulders, the right and left knees, ankles bilaterally, the right wrist is most consistent with degenerative arthritis. 2. Overall compared to the previous whole body bone scintigraphy study dated 06/20/2019, there is minimal interval change. No scintigraphic evidence of skeletal metastatic disease is defined. Electronically Signed: Leonel Harrington, at 21:42 EDT ,
== END | disposition home or self-care (01) ==
LOC: NM 07:23
PROVIDERS: PCP Family Medicine; Referring Provider Nurse Practitioner Family; Visit Provider Nurse Practitioner Family
DX: C61 Malignant neoplasm of prostate (principal); C77.2 Secondary and unspecified malignant neoplasm of intra-abdominal lymph nodes
CPT/HCPCS: 78306; A9503

== ENCOUNTER → 2023-05-04 | Outpatient (CLI) | payer MEDICARE, OTHER, SELFPAY ==
[2019-08-22 13:32] VITALS: BMI 33.8
[2023-05-04 14:18] LABS: PSA,Total- Diagnostic 9.82 ng/mL (0.0-4.0)
== END | disposition home or self-care (01) ==
PROVIDERS: PCP Family Medicine; Referring Provider Registered Nurse; Visit Provider Registered Nurse
DX: C61 Malignant neoplasm of prostate (principal)
CPT/HCPCS: 36592; 84153

== ENCOUNTER 2024-05-23 11:19 | Outpatient (CLI) | payer MEDICARE, OTHER, SELFPAY ==
[2019-08-22 13:32] VITALS: BMI 33.8
[2024-05-23 12:20] LABS: PSA,Total- Diagnostic 4.83 ng/mL (0.0-4.0)
== END 2024-05-23 23:59 | disposition home or self-care (01) ==
LOC: MEDOUTP 11:23
PROVIDERS: PCP Family Medicine; Visit Provider Urology
DX: Z45.2 Encounter for adjustment and management of vascular access device (principal); C61 Malignant neoplasm of prostate
CPT/HCPCS: 36415; 84153; 96523; A4216

== ENCOUNTER → 2024-11-30 | Outpatient (CLI) | payer MEDICARE, OTHER, SELFPAY ==
[2019-08-22 13:32] VITALS: BMI 33.8
== END | disposition home or self-care (01) ==
LOC: LAB 10:03
PROVIDERS: PCP Family Medicine; Referring Provider Nurse Practitioner; Visit Provider Nurse Practitioner
DX: C61 Malignant neoplasm of prostate (principal)

== ENCOUNTER → 2025-03-06 | Outpatient (CLI) | payer MEDICARE, OTHER, SELFPAY ==
[2019-08-22 13:32] VITALS: BMI 33.8
== END | disposition home or self-care (01) ==
LOC: LAB 08:34
PROVIDERS: PCP Family Medicine; Referring Provider Urology; Visit Provider Urology
DX: C61 Malignant neoplasm of prostate (principal)
CPT/HCPCS: 36415; 84153

== ENCOUNTER 2025-05-09 09:51 | Emergency (ER) | payer MEDICARE, OTHER, SELFPAY ==
[2019-08-22 13:32] VITALS: BMI 33.8
[2025-05-09 09:52] VITALS: BP 125/101; PULSE 88; RESP 15; TEMP 37; O2SAT 100
[2025-05-09 10:14] VITALS: BMI 33.0
[2025-05-09 10:25] VITALS: O2SAT 95
--- NOTE | 2025-05-09 10:29 | RAD_ITS ---
PROCEDURE: CHEST 1 VIEW (PORTABLE) 05/09/2025 REASON FOR EXAM: CHEST PAIN TECHNIQUE: Frontal view of the chest. COMPARISON: Chest x-ray of 02/10/2019. RAD/Chest 1 View (Portable) IMPRESSION: Lungs are hypoinflated. Minimal bibasilar atelectasis is seen. No evidence of pulmonary edema. No pleural effusion or pneumothorax is noted. The cardiomediastinal silhouette is remarkable for a partially calcified and to rtuous aorta. No evidence of cardiomegaly. No acute osseous process is seen. Reading Location: [place] [id number]
[2025-05-09 10:38] LABS: Absolute Lymphocyte Count 1.02 X10^3/uL (0.83-4.51); Absolute Neutrophil Count 4.6 X10^3/uL (2.0-7.7); Basophil# 0.06 X10^3/uL; Basophil% 0.9 % (0-1); Eosinophil# 0.18 X10^3/uL; Eosinophils% 2.8 % (0-5); Hematocrit 38.7 % (40-54); Hemoglobin 12.5 g/dL (13.0-16.5); Lymphocyte # 1.02 X10^3/ul (0.83-4.51); Mean Corp Hgb Conc 32.3 g/dL (32-36); Mean Corpuscular Hgb 28.9 pg (27.0-32.0); Mean Corpuscular Volume 89.6 fL (80-94); Mean Platelet Vol. 10.6 fl (6.2-12.0); Monocyte# 0.52 X10^3/uL; Monocyte% 8.2 % (0-10); NRBC Flagged by Analyzer 0 % (0-5); Neutrophil # 4.57 X10^3/uL (2.7-7.7); Neutrophil % 71.8 % (47-70); Platelet Count 186 K/mm3 (150-450); RBC Distribution Width CV 14.6 % (11.6-14.6); RBC Distribution Width SD 47.8 fl (35.1-43.9); Red Blood Count 4.32 M/mm3 (4.6-6.2); White Blood Count 6.4 K/mm3 (4.4-11.0)
--- NOTE | 2025-05-09 10:40 | EX.ED.DYSGE1 ---
HPI History of Present Illness Chief Complaint: Palpitations Narrative Narrative: Patient is a 75-year-old male with a past medical history of prostate cancer, pancytopenia, KATHY, hypertension who presented to the emergency department and he states that he has no idea why he is here. He states that he was following up with a lung doctor today and has no idea why he was following up with them either. Patient states that he has [place] no complaints at this point in time. [facility] Medical History Prostate cancer Elevated PSA Kidney stones Hematuria Pancytopenia High risk medication use KATHY (obstructive sleep apnea) Fatty liver disease Agranulocytosis secondary to cancer chemotherapy Drug induced neutropenia Hairy cell leukemia Obesity Hypertension Sleep apnea Home Medications ?Medication ?Instructions ?Recorded ?Last Taken ?Type lisinopril 40 mg tablet 40 mg PO DAILY bp 12/09/15 05/09/25 History calcium 250 mg (as 1 ea PO BID 10/29/20 05/09/25 History carbonate)-vitamin D3 3.125 mcg (125 unit) tablet metoprolol tartrate 50 mg tablet 50 mg PO DAILY 04/26/24 05/09/25 History amlodipine 10 mg tablet 10 mg PO QDAY 05/09/25 05/09/25 History apixaban 5 mg tablet (Eliquis) 5 mg PO BID 30 days #60 tabs 05/09/25 Unknown Rx Allergy/AdvReac Type Severity Reaction Status Date / Time sulfamethoxazole (From AdvReac Intermediate Rash Verified 05/09/25 09:01 Bactrim) trimethoprim (From Bactrim) AdvReac Intermediate Rash Verified 05/09/25 09:01 Family History Mother Hypertension CVA (cerebral vascular accident) Breast cancer Sister CVA (cerebral vascular accident) Surgical History History of prostate biopsy Basal cell carcinoma of nose Social History household members: none Smoking Status: Never smoker second hand exposure: No alcohol intake: never substance use type: does not use ROS ROS ED ROS Narrative Constitutional: Denies fevers, chills, headaches, lightness, dizziness Eyes: Denies change in vision double vision blurry vision Cardiovascular: Denies chest pain or palpitations Respiratory: Denies coughing wheezing shortness of breath Abdomen: Denies abdominal pain nausea vomiting diarrhea : Denies any urinary symptoms Neurological: Denies any numbness, wheeze, tingling Musculoskeletal: Denies back pain Skin: Denies any rashes or lesions EXAM Physical Exam Narrative Exam Narrative: General: Patient lying in bed rest comfortably did not appear to be in acute distress Head: Atraumatic, normocephalic Eyes: PERRL bilaterally, EOMI of light, no conjunctival injection noted Neck: Soft, supple, trachea midline Cardiovascular: Patient had an irregular irregular rhythm with a normal rate no murmurs gallops or rubs noted Respiratory: Clear to auscultation bilaterally Abdomen: No tenderness to palpation Extremities: +5/5 strength noted in bilateral upper and lower extremities, radial pulses +2/4 in the bilateral extremities, no pedal edema on exam Neurological: Patient follow commands knew that he was at [facility] year is 2024 Skin: Warm, dry, tact no rashes or lesions noted Const Vital Signs: 05/09/25 09:52 05/09/25 10:15 05/09/25 10:25 Temperature 98.6 F Temperature Source Oral Pulse Rate 88 Respiratory Rate 15 Respiratory Effort Normal Non-Labored Blood Pressure 125/101 H Blood Pressure Mean 109 Pulse Ox 100 95 Oxygen Delivery Method Room Air Room Air 05/09/25 11:00 05/09/25 12:09 Temperature Temperature Source Pulse Rate 100 62 Respiratory Rate 21 H 22 H Respiratory Effort Blood Pressure 150/108 H 127/87 H Blood Pressure Mean 122 99 Pulse Ox 94 98 Oxygen Delivery Method MDM MDM MDM Narrative Medical decision making narrative: Patient is a 75-year-old male who presented to the emergency department the chief complaint of being sent in by his pulmonology provider. On the differential diagnosis includes but not limited to ACS, new onset A-fib, atrial flutter, electrolyte abnormality. Once workup is obtained and reviewed he will be reevaluated. Nurse practitioner called from pulmonology office and discussed with them and she noted that the patient had new onset atrial fibrillation. She states that she called his family physician's office and they could not get him into be evaluated today therefore they advised to send him to the emergency department to be evaluated. They state that they had no records of him having a history of atrial fibrillation. Patient CBC reviewed showed no evidence of cytosis white blood count 6.4, he was 12.5, platelet count was noted be 186. Patient's sodium normal 141, potassium of 4.4, creatinine was 1.26. Patient's troponin was 12 with a delta troponin obtained at 10. Patient EKG showed atrial fibrillation with a controlled rate of 79 bpm. Patient's TSH normal at 0.82, free T4 and T3 were normal at 1.10 and 2.2 respectively. Patient's chest x-ray reviewed by myself and by radiology showed no acute cardiopulmonary processes. Called and discussed case with on-call financial sales representative Dr. Echavarria who states that the patient to be placed on Eliquis and follow-up in the outpatient setting. I discussed this plan with the patient he is agreeable this plan he would like to go home at this point time. Patient has been rate controlled the entire time as well. He was advised if he falls and hits his head while on Eliquis he needs to go to an emergency department immediately for a head CT. He is advised to return with worsening symptoms or concerns. He is agreeable to plan all question concerns answered he is discharged home in stable condition. Lab Data Labs: Laboratory Results - last 24 hr 05/09/25 05/09/25 05/09/25 10:23 10:40 12:33 WBC 6.4 RBC 4.32 L Hgb 12.5 L Hct 38.7 L MCV 89.6 MCH 28.9 MCHC 32.3 RDW Std Deviation 47.8 H RDW Coeff of Kristen 14.6 Plt Count 186 MPV 10.6 Immature Gran % (Auto) 0.300 Neut % (Auto) 71.8 H Lymph % (Auto) 16.0 L Wilkin % (Auto) 8.2 Eos % (Auto) 2.8 Baso % (Auto) 0.9 Absolute Neuts (auto) 4.6 Absolute Lymphs (auto) 1.02 Nucleated RBC % 0 Sodium 141 Potassium 4.4 Chloride 105 Carbon Dioxide 26.9 Anion Gap 9 BUN 19 Creatinine 1.26 H Estim Creat Clear Calc 63.12 Est GFR (MDRD) Non-Af 59 L BUN/Creatinine Ratio 14.8 Glucose 110 H Calcium 9.5 Troponin T High Sens 12 Troponin T Hi Sens 2 Hr 10 TSH 0.829 Free T4 1.10 Free T3 pg/dL 2.2 Radiography Diagnostic Testing: Clinical Impression(s) from Imaging Studies Chest X-Ray 05/09/25 10:29 IMPRESSION: Lungs are hypoinflated. Minimal bibasilar atelectasis is seen. No evidence of pulmonary edema. No pleural effusion or pneumothorax is noted. The cardiomediastinal silhouette is remarkable for a partially calcified and tortuous aorta. No evidence of cardiomegaly. No acute osseous process is seen. Reading Location: [place] [id number] Discharge Plan Triage Chief Complaint: Palpitations ED Provider: Steven Hurst Dx/Rx/DC Orders Clinical Impression: Atrial fibrillation Prescriptions: New Eliquis 5 mg tablet 5 mg PO BID 30 Days Qty: 60 0RF No Action metoprolol tartrate 50 mg tablet 50 mg PO DAILY amlodipine 10 mg tablet 10 mg PO QDAY lisinopril 40 MG tablet 40 mg PO DAILY calcium carbonate-vitamin D3 1 EACH tablet 1 ea PO BID Primary Care Provider: Abel Barrera Referrals: Abel Barrera DO [Primary Care Provider] - Saud Echavarria MD [Med Staff - Active Staff] - Activity Restrictions/Additional Instructions: Take the Eliquis that you are prescribed as instructed. If you fall and hit your head you need to immediately return to a emergency department for a head CT as you could have a head bleed. Follow-up with the financial sales representative that you referred to. Return with worsening symptoms or concerns Print Language: Greek Disposition Disposition: Home, Self Care
[2025-05-09 11:00] VITALS: BP 150/108; PULSE 100; RESP 21; O2SAT 94
[2025-05-09 11:02] LABS: Anion Gap 9 (5-15); BUN 19 mg/dL (4-19); BUN/Creat Ratio 14.8 RATIO (10-20); Calcium,Total 9.5 mg/dL (7.6-11.0); Carbon Dioxide 26.9 mmol/L (21.0-32.0); Chloride 105 mmol/L (98-108); Creatinine, Serum 1.26 mg/dL (0.70-1.20); EST Glomerular Filtration Rate 59 (>60); Estimated Creatinine Clearance 63.12 ml/min (50-250); Glucose 110 mg/dL (70-99); Potassium 4.4 mmol/L (3.3-5.1); Sodium Level 141 mmol/L (133-145); Troponin T High Sensitivity 12 ng/L (<=22)
[2025-05-09 11:31] LABS: Free T3 2.2 pg/mL (2.18-3.98); Thyroid Stim Hormone (TSH) 0.829 uIU/mL (0.300-4.200)
[2025-05-09 12:09] VITALS: BP 127/87; PULSE 62; RESP 22; O2SAT 98
[2025-05-09 13:27] LABS: Troponin T High Sens 2 HR 10 ng/L (<=22)
--- OUTSIDE RECORDS SUMMARY | 2025-05-09 21:36 | XMS RPT_ITS | CCD ---
Author Organization [facility] Care Team Providers Care Meter Reader Name Role Phone Dr. Lisset Barrera Primary Care Provider [phone] Lisset Barrera Referring Provider [phone] Dr. Chance Montemayor Attending Provider Dr. Lele Denis Attending Provider Dr. Lisset Barrera Primary Care Provider Dr. Lisset Barrera Referring Provider Austin SUPERVISOR PHOSPHATIC FERTILIZER, SUPERVISOR PHOSPHATIC FERTILIZER-Elie Rios Attending Provider Dr. Lisset Barrera Primary Care Provider Dr. Lisset Barrera Referring Provider Dr. Chance Montemayor Attending Provider [phone] [place]portDisha Attending Unavailable [place], Disha Referring Unavailable Holly, Lisset Primary Care Unavailable PraLele devries Attending Unavailable Holly, Lisset Primary Care Unavailable Holly, Lisset Referring Unavailable Janessa Zamora NP Attending Unavailable Holly, Lisset Referring Unavailable Holly, Lisset Primary Care Unavailable [facility] Attending Unavailable Holly, Lisset Primary Care Unavailable Holly, Lisset Referring Unavailable PraLele devries Attending Unavailable Holly, Lisset Referring Unavailable Holly, Lisset Primary Care Unavailable ThomasRegan Consulting Unavailable Holly, Lisset Primary Care Unavailable ThomasRegan Attending Unavailable ThomasRegan Attending Unavailable ThomasRegan Referring Unavailable Holly, Lisset Primary Care Unavailable Holly Dr. Lisset HOWELL Primary Care Provider [phone] Thomas CH, Dr. Regan Pierce Attending Provider Thomas CH, Dr. Regan Pierce Referring Provider Dr. Lisset Barrera DO Referring Provider [phone] Janessa Newman Attending Provider Dr. Steven Hurst DO Emergency Provider Allergies Allergy Classification Reported Allergen(s) Allergy Type Date of Onset Reaction(s) Facility (6 sources) Sulfamethoxazole Drug Allergy 2 [facility] (6 sources) Trimethoprim Drug Allergy 2 [facility] (1 source) Sulfamethoxazole Drug Allergy 4 [facility] (1 source) Trimethoprim Drug Allergy 4 [facility] Medications Current Medications Medication Drug Class(es) Dates Sig (Normalized) Sig (Original) amLODIPine 10 mg oral tablet (14 sources) Dihydropyridine Calcium Channel [place] Start: 05-09-2025 take 1 tablet by mouth once daily Amlodipine 10 mg tablet Active 10 mg PO daily May 09, 2025 12:00am Start: 01-03-2018 End: 05-09-2025 take 2 tablets by mouth once daily Amlodipine 5 MG tablet Discontinued 10 mg PO DAILY January 03, 2018 11:41am May 09, 2025 9:02am Start: 01-03-2018 take 10 mg by mouth once daily Amlodipine Active 10 MG PO DAILY January 03, 2018 11:41am Start: 02-18-2016 End: 01-03-2018 take 1 tablet by mouth once daily Amlodipine 5 MG tablet Discontinued 5 mg PO DAILY February 18, 2016 12:00am January 03, 2018 11:41am apixaban 5 mg oral tablet (1 source) Factor Xa Inhibitor Start: 05-09-2025 take 1 tablet by mouth twice daily Apixaban (Eliquis) 5 mg tablet Active 5 mg PO TWICE A DAY 60 May 09, 2025 12:00am calcium carbonate 625 mg / cholecalciferol 125 unt oral tablet (6 sources) Vitamin D Start: 10-29-2020 Calcium Carbonate-Vitami n D3 1 EACH tablet Active 1 NMA PO TWICE A DAY October 29, 2020 1:00am Start: 10-29-2020 Calcium Carbon ate-Vitamin D3 1 EACH tablet Active 1 NMA PO DAILY October 29, 2020 1:00am Start: 10-29-2020 Calcium Carbon ate-Vitamin D3 Active 1 EACH PO DAILY October 29, 2020 1:00am lisinopril 40 mg oral tablet (6 sources) Angiotensin Converting Enzyme Inhibitor Start: 12-09-2015 take 1 tablet by mouth once daily Lisinopril 40 MG tablet Active 40 mg PO DAILY December 09, 2015 1:00am metoprolol tartrate 50 mg oral tablet (8 sources) beta-Adrenergic [place] Start: 04-26-2024 take 1 tablet by mouth once daily Metoprolol Tartrate 50 mg tablet Active 50 mg PO DAILY April 26, 2024 12:00am Start: 12-09-2015 End: 04-26-2024 take 1 tablet by mouth twice daily Metoprolol Tartrate 25 MG tablet Discontinued 25 mg PO TWICE A DAY December 09, 2015 1:00am April 26, 2024 8:46am Completed/Discontinued Medications Medication Drug Class(es) Dates Sig (Normalized) Sig (Original) acetaminophen 325 mg / HYDROcodone bitartrate 5 mg oral tablet (6 sources) Opioid Agonist Start: 02-10-2019 End: 02-12-2019 Hydrocodone-Acetami nophen 1 TABLET tablet Discontinued 1 {tbl} PO EVERY 6 HOURS NEEDED as needed for Pain 5 2 February 10, 2019 12:00am February 11, 2019 12:00am February 12, 2019 12:09am Start: 02-10-2019 End: 02-12-2019 take 1 tablet by mouth every six hours as needed Hydrocodone-Acetaminophen Discontinued 1 TABLET PO EVERY 6 HOURS NEEDED 5 2 February 10, 2019 12:00am February 12, 2019 12:09am lidocaine 25 mg/ml / prilocaine 25 mg/ml topical cream (6 sources) Antiarrhythmic, Amide Local Anesthetic Start: 02-14-2019 End: 06-17-2019 Lidocaine-Prilocaine 30 GM Cream..G. Discontinued 1 APPLICATIO TP DAILY as needed for Not Specified 12 14February 14, 2019 10:43am June 13, 2019 12:00am June 17, 2019 12:08am Start: 02-14-2019 End: 06-17-2019 Lidocaine-Prilocaine Discont inued 1 APPLICATIO TP DAILY 12 14February 14, 2019 10:43am June 17, 2019 12:08am ondansetron 8 mg disintegrating oral tablet (6 sources) Serotonin-3 Receptor Antagonist Start: 02-14-2019 End: 03-26-2019 take 1 tablet by mouth every eight hours as needed for nausea Ondansetron 8 MG Tab.Rapdis Discontinued 8 mg PO EVERY 8 HOURS NEEDED as needed for Nausea 30 February 14, 2019 12:00am March 25, 2019 12:00am March 26, 2019 12:07am prochlorperazine 10 mg oral tablet (6 sources) Phenothiazine Start: 02-14-2019 End: 03-16-2019 take 1 tablet by mouth every six hours as needed for nausea Prochlorperazine Maleate 10 MG tablet Discontinued 10 mg PO EVERY 6 HOURS NEEDED as needed for Nausea 30 February 14, 2019 10:43am March 15, 2019 12:00am March 16, 2019 12:08am Problems Active Problems Problem Classification Problem Date Documented Date Episodic/Chronic Administrative/social admission (9 sources) Patient encounter status; Translations: [Counseling, unspecified] Episodic Calculus of urinary tract (6 sources) Kidney stone; Translations: [Calculus of kidney] 01-02-2020 Episodic Cancer of prostate (20 sources) Primary malignant neoplasm of prostate; Translations: [Malignant neoplasm of prostate] Onset: 08-09-2024 Chronic Comment on above: Prostate cancer, sta ge IV(cTx cN1 cM1b) retroperitoneal adenopathy and bones.CT on 04/07/2022 shows stable small abdominal nodes.Comes for follow up. Bone scan 08/03/2022 showed no evidence of metastatic disease. Cardiac dysrhythmias (5 sources) Irregular heart beat; Translations: [Cardiac arrhythmia, unspecified] 05-09-2025 Chronic Deficiency and other anemia (6 sources) Pancytopenia; Translations: [Other pancytopenia] 01-02-2020 Chronic Diseases of white blood cells (12 sources) Agranulocytosis; Translations: [Agranulocytosis secondary to cancer chemotherapy] 01-02-2020 Chronic Essential hypertension (6 sources) Hypertensive disorder; Translations: [Essential (primary) hypertension] 04-20-2019 Chronic Genitourinary symptoms and ill-defined conditions (12 sources) Blood in urine; Translations: [Hematuria, unspecified] 01-02-2020 Episodic Leukemias (17 sources) Hairy cell leukemia (clinical); Translations: [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 Maintenance chemotherapy; radiotherapy (15 sources) Patient encounter status; Translations: [Encounter for antineoplastic chemotherapy] Chronic Other aftercare (6 sources) Drug therapy finding; Translations: [Other correction (current) drug therapy] 01-02-2020 Episodic Other non-epithelial cancer of skin (6 sources) Basal cell carcinoma of nose; Translations: [Basal cell carcinoma of skin of nose] 01-02-2020 Episodic Comment on above: Removed 05/2016 Other nutritional; endocrine; and metabolic disorders (7 sources) Obesity; Translations: [Obesity, unspecified] 04-20-2019 Chronic Other nutritional; endocrine; and metabolic disorders (2 sources) Obesity, unspecified; Translations: [Obesity, unspecified] Chronic Other screening for suspected conditions (not mental disorders or infectious disease) (9 sources) Raised prostate specific antigen; Translations: [Elevated prostate specific antigen [PSA]] Episodic Residual codes; unclassified (7 sources) Obstructive sleep apnea syndrome; Translations: [Obstructive sleep apnea (adult) (pediatric)] 01-02-2020 Chronic Residual codes; unclassified (6 sources) Sleep apnea; Translations: [Sleep apnea, unspecified] 04-20-2019 Chronic Residual codes; unclassified (2 sources) Obstructive sleep apnea (adult) (pediatric); Translations: [Obstructive sleep apnea (adult)(pediatric)] Chronic Residual codes; unclassified (6 sources) Past history of procedure; Translations: [Other specified postprocedural states] 01-02-2020 Episodic Comment on above: 01/24/19 Residual codes; unclassified (3 sources) Other specified postprocedural states; Translations: [Personal history of surgery to other organs] Episodic Secondary malignancies (1 source) Secondary malignant neoplasm of bone; Translations: [Secondary malignant neoplasm of bone] Onset: 08-03-2024 Chronic Secondary malignancies (1 source) Secondary and unspecified malignant neoplasm of intra-abdominal lymph nodes; Translations: [Secondary and unspecified malignant neoplasm of intra-abdominal lymph nodes] Onset: 08-03-2024 Chronic Past or Other Problems Problem Classification Problem Date Documented Da te Episodic/Chronic Diabetes mellitus without complication (1 source) Hyperglycemia, unspecified; Translations: [Hyperglycemia, unspecified] Onset: 08-09-2024 Episodic Other aftercare (1 source) Encounter for adjustment and management of vascular access device; Translations: [Encounter for adjustment and management of vascular access device] Onset: 06-01-2024 Episodic Unclassified (6 sources) Fatty liver disease 06-04-2022 Results Test Name Value Interpretation Reference Range Facility Absolute lymphocyte countOrd ered By: Steven Hurst on 05-09-2025 Lymphocytes Auto (Unsp spec) [#/Vol] 1.02 10*3/uL 0.83-4.51 [facility] Absolute neutrophil countOrd ered By: Steven Hurst on 05-09-2025 Neutrophils (Bld) [#/Vol] 4.6 10*3/uL 2.0-7.7 [facility] Anion gap in Serum or Plasma Ordered By: Steven Hurst on 05-09-2025 Anion gap [Moles/Vol] 9 mmol/L 5-15 [facility] Automated lymphocyte count a s percentage of total leukocytesOrdered By: Steven Hurst on 05-09-2025 Lymphocytes/100 WBC Auto (Unsp spec) 16.0 % Low 19-41 [facility] BUN/creatinine ratioOrdered By: Steven Hurst on 05-09-2025 Urea nitrogen/Creatinine [Mass ratio] 14.8 mg/mg 10-20 [facility] Basophil percentageOrdered B y: Steven Hurst on 05-09-2025 Basophils/100 WBC (Bld) 0.9 % 0-1 [facility] Carbon dioxide, total [Moles /volume] in Central venous bloodOrdered By: Steven Hurst on 05-09-2025 CO2 [Moles/Vol] 26.9 mmol/L 21.0-32.0 [facility] Chloride assayOrdered By: Brett Hurst on 05-09-2025 Chloride [Moles/Vol] 105 mmol/L 98-[address] [facility] Eosinophil percentageOrdered By: Steven Hurst on 05-09-2025 Eosinophils/100 WBC (Bld) 2.8 % 0-5 [facility] Erythrocyte distribution wid th ratioOrdered By: Steven Hurst on 05-09-2025 Erythrocyte distribution width (RBC) [Ratio] 14.6 % 11.6-14.6 [facility] Erythrocyte distribution wid th standard deviationOrdered By: Steven Hurst on 05-09-2025 Erythrocyte distribution width (RBC) [Ratio] 47.8 fl High 35.1-43.9 [facility] Free F0Yrdrtif By: Steven holguin on 05-09-2025 Free T3 [Mass/Vol] 2.2 pg/mL 2.18-3.98 [facility] Glomerular filtration rate ( GFR) estimation/1.73 sq m using serum, plasma, or whole bOrdered By: Steven Hurst on 05-09-2025 GFR/1.73 sq M.predicted among non-blacks MDRD (S/P/Bld) [Vol rate/Area] 59 mL/min/{1.73_m2} Low >60 [facility] Comment on above: mL/min/1.73m2 CKD-EP I Creatinine Equation (2020) Hematocrit Auto (Bld) [Volum e fraction]Ordered By: Steven Hurst on 05-09-2025 Hematocrit (Bld) [Volume fraction] 38.7 % Low 40-54 [facility] Hemoglobin measurementOrdere d By: Steven Hurst on 05-09-2025 Hemoglobin (Bld) [Mass/Vol] 12.5 g/dL Low 13.0-16.5 [facility] Immature granulocytes/100 WB C Auto (Bld)Ordered By: Steven Hurst on 05-09-2025 Immature granulocytes/100 WBC (Bld) 0.300 % 0.0-0.9 [facility] Comment on above: IG% - Immature Granu locytes (promyelocytes, myelocytes and metamyelocytes) > 1% indicates that a LEFT SHIFT is Present. MCV (mean corpuscular volume ) determinationOrdered By: Steven Hurst on 05-09-2025 MCV (RBC) [Entitic vol] 89.6 fL 80-94 [facility] Mean corpuscular hemoglobin (MCH) determinationOrdered By: Steven Hurst 05-09-2025 MCH (RBC) [Entitic mass] 28.9 pg 27.0-32.0 [facility] Mean corpuscular hemoglobin concentration (MCHC) determinationOrdered By: Steven Hurst on 05-09-2025 MCHC (RBC) [Mass/Vol] 32.3 g/dL 32-36 [facility] Mean platelet volume determi nationOrdered By: Steven Hurst on 05-09-2025 Platelet mean volume (Bld) [Entitic vol] 10.6 fL 6.2-12.0 [facility] Monocyte percentageOrdered B y: Steven Hurst on 05-09-2025 Monocytes/100 WBC (Bld) 8.2 % 0-10 [facility] Neutrophil percentageOrdered By: Steven Hurst on 05-09-2025 Neutrophils/100 WBC (Bld) 71.8 % High 47-70 [facility] Nucleated red blood cell per centageOrdered By: Steven Hurst on 05-09-2025 Nucleated RBC/100 WBC (Bld) [Ratio] 0 % 0-5 [facility] Platelet countOrdered By: Brett Hurst on 05-09-2025 Platelets (Bld) [#/Vol] 186 10*3/uL 150-450 [facility] Potassium measurement (mass/ volume)Ordered By: Steven Hurst on 05-09-2025 Potassium (Unsp spec) [Mass/Vol] 4.4 mmol/L 3.3-5.1 [facility] RBC Auto (Bld) [#/Vol]Ordere d By: Steven Hurst on 05-09-2025 RBC (Bld) [#/Vol] 4.32 10*6/uL Low 4.6-6.2 [facility] Serum creatinine measurement (mass/volume)Ordered By: Steven Hurst on 05-09-2025 Creatinine [Mass/Vol] 1.26 mg/dL High 0.70-1.20 [facility] Serum glucose measurement (m ass/volume)Ordered By: Steven Hurst on 05-09-2025 Glucose [Mass/Vol] 110 mg/dL High 70-99 [facility] Serum or plasma calcium [place] urement (mass/volume)Ordered By: Steven Hurst on 05-09-2025 Calcium [Mass/Vol] 9.5 mg/dL 7.6-11.0 [facility] Serum or plasma urea nitroge n measurement (mass/volume)Ordered By: Steven Hurst on 05-09-2025 Urea nitrogen [Mass/Vol] 19 mg/dL 4-19 [facility] Sodium levelOrdered By: Willis Hurst on 05-09-2025 Sodium [Moles/Vol] 141 mmol/L 133-145 [facility] T4 freeOrdered By: Steven holguin on 05-09-2025 Free T4 [Mass/Vol] 1.10 ng/dL 0.76-1.46 [facility] TSH DL <= 0.005 mIU/L QnOrde red By: Steven Hurst on 05-09-2025 TSH Qn 0.829 uIU/mL 0.300-4.200 [facility] Troponin T.cardiac [Mass/vol ume] in Serum or Plasma by High sensitivity methodOrdered By: Steven Hurst on 05-09-2025 Troponin T.cardiac High sensitivity method [Mass/Vol] 10 ng/L <22 [facility] Troponin T.cardiac High sensitivity method [Mass/Vol] 12 ng/L <22 [facility] White blood cell (WBC) count Ordered By: Steven Hurst on 05-09-2025 WBC (Bld) [#/Vol] 6.4 10*3/uL 4.4-11.0 [facility] PSA,Total- [employer] 02-14 PSA, DIAGNOSTIC 35.00 ng/mL High 0.00-4.00 [facility] Comment on above: Result Comment: This test was performed using the [employer] tPSA method. Measured values of a patient??sample can vary depending on the testing procedure used. PSA values determined on patient samples by different testing procedures cannot be used interchangeably. If there is a change in PSA assays while monitoring therapy, sequential testing should be performed to confirm baseline values. Performed By: #### L [id number] #### [facility] [address] [place], [address] PSA,Total- [employer] 11-15 PSA, DIAGNOSTIC 19.60 ng/mL High 0.0-4.0 [facility] Comment on above: Result Comment: This test was performed using the TPSA assay method for the [employer] system. Values obtained with different assay methods cannot be used interchangably. When changing PSA assays in the course of monitoring a patient, additional sequential testing should be carried out to confirm baseline values. Performed By: #### L [id number] #### [facility] [address] [place], [address] Surgery Visit Reporton 08-31 Surgery Visit Report [facility] 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 Kaiser alexander MD Age/Sex: 74/M Location: [facility] Status: Signed Intake Vital Signs 08/03/24 14:31 Height 5 ft 11 in Intake Visit Reasons: PORT REMOVAL Chief Complaint: port removal Food Service Worker Required: No Is patient in pain?: No Allergies sulfamethoxazole (From Bactrim) Adverse Reaction (Intermediate, Verified 08/31/24 14:10) Rash trimethoprim (From Bactrim) Adverse Reaction (Intermediate, Verified 08/31/24 14:10) Rash Medications ???Medication ???Instructions ???Recorded ???Confirmed ???Type lisinopril 40 mg tablet 40 mg PO DAILY bp 12/09/15 08/31/24 History amlodipine 5 mg tablet 10 mg PO DAILY bp 01/03/18 08/31/24 History calcium 250 mg (as 1 ea PO DAILY 10/29/20 08/31/24 History carbonate)-vitamin D3 3.125 mcg (125 unit) tablet metoprolol tartrate 50 mg tablet 50 mg PO QDAY 04/26/24 08/31/24 History Have you fallen in the past year?: No PFSH Medical History Prostate cancer Elevated PSA Kidney stones Hematuria Pancytopenia High risk medication use KATHY (obstructive sleep apnea) Fatty liver disease Agranulocytosis secondary to cancer chemotherapy Drug induced neutropenia Hairy cell leukemia Obesity Hypertension Sleep apnea Surgical History History of prostate biopsy Basal cell carcinoma of nose Family History Mother Hypertension CVA (cerebral vascular accident) Breast cancer Sister CVA (cerebral vascular accident) Social History second hand exposure: No alcohol intake: never substance use type: does not use HPI HPI HPI: The patient is a 74-year-old male who is being seen today for removal of a right sided Mediport. He states he has had this port for about 10 years. This was used for treatment of prostate cancer. We discussed the details of the planned procedure and he wishes to proceed. ROS General General: No weight change, appetite, fatigue, colon cancer, breast cancer or weakness HEENT HEENT: No difficulty swallowing, eye injury, eye surgery, swollen glands or hoarseness Endo Endocrine: No thyroid disease, diabetes mellitus, thyroid cancer, Hair loss, heat intolerance or cold intolerance Skin Skin: No rash or changing moles Breast Breast: No left breast lump, right breast lump, nipple discharge, breast pain, abnormal mammogram, abnormal US or breast enlargement Musc Musculoskeletal: No back problems, arthritis, rheumatoid arthritis, gout or joint pain Cardio Cardiovascular: No murmur, pacemaker, heart disease, atrial fibrillation, high blood pressure, heart attack, heart stent, palpitations, shortness of breat with exertion or chest pain Psych Psychiatric: No depression, anxiety or hearing voices Resp Respiratory: No shortness of breath, No sleep apnea, No cough, No COPD, No asthma, No emphysema and No wheezing Gastro Gastrointestinal: No abdominal pain, No nausea or vomiting, No diarrhea, No constipation, No blood in stool, No acid reflux, No hemorrhoids, No ulcers, No gallbladder problem and No black,tarry stools Kapil Hematologic: No blood thinners, No blood disorders, No bleeding, No anemia and No blood clots Neuro Neurologic: No system reviewed and no additional complaints, except as documented, No as per HPI, No abnormal gait, No abnormal hearing, No abnormal movements, No abnormal speech, No behavioral changes, No burning sensations, No confusion, No convulsions, No disequilibrium, No dizziness, No localized weakness, No frequent falls, No headache(s), No lack of coordination, No loss of vision, No memory loss, No numbness, No other visual disturbances, No radicular pain, No restless legs, No sensory deficit, No syncope, No tingling, No tremor(s), No weakness and No other Exam Const Other: He is alert and oriented x 3. He is in no acute distress. Right sided chest port noted. No signs of erythema or infection. Office Procedures Port/Peg Provider Documentation Details:: After discussion was held regarding the details of the planned right sided port removal, the patient signed a consent form to proceed. He was then placed supine on the procedure room table. The right upper chest region was then prepped and draped in the usual sterile manner. Local anesthetic was injected into the previous incision site. A #15 blade was then used to make the skin incision and also to dissect down through the subcut (more content not included)... Normal [facility] CBC W/Diff, Automatedon 07-16 Absolute Lymph 0.96 X10 3/uL Normal 0.83-4.51 [facility] Comment on above: Order Comment: UTO F ROM PORT Performed By: #### L 100.0100, L504.2610, L500.4050, [id number] #### [facility] [address] [place], [address] Absolute Neut 4.1 X10 3/uL Normal 2.0-7.7 [facility] Comment on above: Order Comment: UTO F ROM PORT Performed By: #### L 100.0100, L504.2610, L500.4050, [id number] #### [facility] [address] [place], [address] Basophils/100 WBC (Bld) 0.7 % Normal 0-1 [facility] Comment on above: Order Comment: UTO F ROM PORT Performed By: #### L 100.0100, L504.2610, L500.4050, [id number] #### [facility] [address] [place], [address] Eosinophils/100 WBC (Bld) 3.7 % Normal 0-5 [facility] Comment on above: Order Comment: UTO F ROM PORT Performed By: #### L 100.0100, L504.2610, L500.4050, [id number] #### [facility] [address] [place], [address] Erythrocyte distribution width (RBC) [Ratio] 14.0 % Normal 11.6-14.6 [facility] Comment on above: Order Comment: UTO F ROM PORT Performed By: #### L 100.0100, [id number], [id number], [id number] #### [facility] [address] [place], [address] Hematocrit (Bld) [Volume fraction] 38.1 % Low 40-54 [facility] Comment on above: Order Comment: UTO F ROM PORT Performed By: #### L 100.0100, [id number], L500.4050, [id number] #### [facility] [address] [place], [address] Hemoglobin (Bld) [Mass/Vol] 12.4 g/dL Low 13.0-16.5 [facility] Comment on above: Order Comment: UTO F ROM PORT Performed By: #### L 100.0100, [id number], [id number], [id number] #### [facility] [address] [place], [address] IG% 0.300 Normal 0.0-0.9 [facility] Comment on above: Order Comment: UTO F ROM PORT Result Comment: IG% - Immature Granulocytes (promyelocytes, myelocytes and metamyelocytes) > 1% indicates that a LEFT SHIFT is Present. Performed By: #### L 100.0100, L504.2610, L500.4050, [id number] #### [facility] [address] [place], [address] Lymphocytes/100 WBC (Bld) 16.2 % Low 19-41 [facility] Comment on above: Order Comment: UTO F ROM PORT Performed By: #### L 100.0100, L504.2610, L500.4050, [id number] #### [facility] [address] [place], [address] MCH (RBC) [Entitic mass] 29.2 pg Normal 27.0-32.0 [facility] Comment on above: Order Comment: UTO F ROM PORT Performed By: #### L 100.0100, L504.2610, L500.4050, [id number] #### [facility] [address] [place], [address] MCHC (RBC) [Mass/Vol] 32.5 g/dL Normal 32-36 [facility] Comment on above: Order Comment: UTO F ROM PORT Performed By: #### L 100.0100, L504.2610, L500.4050, [id number] #### [facility] [address] [place], [address] MCV (RBC) [Entitic vol] 89.6 fL Normal 80-94 [facility] Comment on above: Order Comment: UTO F ROM PORT Performed By: #### L 100.0100, L504.2610, L500.4050, [id number] #### [facility] [address] [place], [address] Monocytes/100 WBC (Bld) 9.5 % Normal 0-10 [facility] Comment on above: Order Comment: UTO F ROM PORT Performed By: #### L 100.0100, L504.2610, L500.4050, [id number] #### [facility] [address] [place], [address] Neutrophils/100 WBC (Bld) 69.6 % Normal 47-70 [facility] Comment on above: Order Comment: UTO F ROM PORT Performed By: #### L 100.0100, L504.2610, L500.4050, [id number] #### [facility] [address] [place], [address] Nucleated RBC (Bld) [#/Vol] 0 10*3/uL Normal 0-5 [facility] Comment on above: Order Comment: UTO F ROM PORT Performed By: #### L 100.0100, L504.2610, L500.4050, [id number] #### [facility] [address] [place], [address] Platelet mean volume (Bld) [Entitic vol] 10.3 fL Normal 6.2-12.0 [facility] Comment on above: Order Comment: UTO F ROM PORT Performed By: #### L 100.0100, L504.2610, L500.4050, [id number] #### [facility] [address] [place], [address] Platelets (Bld) [#/Vol] 207 10*3/uL Normal 150-450 [facility] Comment on above: Order Comment: UTO F ROM PORT Performed By: #### L 100.0100, L504.2610, L500.4050, [id number] #### [facility] [address] [place], [address] RBC (Bld) [#/Vol] 4.25 10*6/uL Low 4.6-6.2 [facility] Comment on above: Order Comment: UTO F ROM PORT Performed By: #### L 100.0100, L504.2610, L500.4050, [id number] #### [facility] [address] [place], [address] RDW SD 45.2 fl High 35.1-43.9 [facility] Comment on above: Order Comment: UTO F ROM PORT Performed By: #### L 100.0100, L504.2610, L500.4050, [id number] #### [facility] [address] [place], [address] WBC (Bld) [#/Vol] 5.9 10*3/uL Normal 4.4-11.0 [facility] Comment on above: Order Comment: UTO F ROM PORT Performed By: #### L 100.0100, L504.2610, L500.4050, [id number] #### [facility] [address] [place], [address] Comprehensive Metabolic Prof ilon 08-03-2024 Albumin [Mass/Vol] 3.2 g/dL Normal 3.2-5.0 [facility] Comment on above: Order Comment: UTO F ROM PORT 1 Performed By: #### L 100.0100, L504.2610, L500.4050, [id number] #### [facility] [address] [place], [address] Albumin/Globulin [Mass ratio] 0.8 {ratio} Low 0.9-2.4 [facility] Comment on above: Order Comment: UTO F ROM PORT 1 Performed By: #### L 100.0100, L504.2610, L500.4050, [id number] #### [facility] [address] [place], [address] ALK P 77 U/L Normal 45-117 [facility] Comment on above: Order Comment: UTO F ROM PORT 1 Performed By: #### L 100.0100, L504.2610, L500.4050, [id number] #### [facility] [address] [place], [address] ALT [Catalytic activity/Vol] 19 U/L Normal 16-61 [facility] Comment on above: Order Comment: UTO F ROM PORT 1 Performed By: #### L 100.0100, L504.2610, L500.4050, [id number] #### [facility] [address] [place], [address] AST [Catalytic activity/Vol] 13 U/L Low 15-37 [facility] Comment on above: Order Comment: UTO F ROM PORT 1 Performed By: #### L 100.0100, L504.2610, L500.4050, [id number] #### [facility] [address] [place], [address] Bilirubin [Mass/Vol] 0.40 mg/dL Normal 0.20-1.[address] [facility] Comment on above: Order Comment: UTO F ROM PORT 1 Result Comment: For patients on eltrombopag therapy, use of Dimension [place] TBIL is not recommended. Performed By: #### L 100.0100, L504.2610, L500.4050, [id number] #### [facility] [address] [place], [address] BUN/CRE 19.0 RATIO Normal 10-20 [facility] Comment on above: Order Comment: UTO F ROM PORT 1 Performed By: #### L 100.0100, L504.2610, L500.4050, [id number] #### [facility] [address] [place], [address] CA,Total 9.2 mg/dL Normal 8.5-10.1 [facility] Comment on above: Order Comment: UTO F ROM PORT 1 Performed By: #### L 100.0100, L504.2610, L500.4050, [id number] #### [facility] [address] [place], [address] Chloride [Moles/Vol] 106 mmol/L Normal 98-[address] [facility] Comment on above: Order Comment: UTO F ROM PORT 1 Performed By: #### L 100.0100, L504.2610, L500.4050, L501.9940 #### [facility] [address] [place], [address] CO2 [Moles/Vol] 27.0 mmol/L Normal 21.0-32.0 [facility] Comment on above: Order Comment: UTO F ROM PORT 1 Performed By: #### L 100.0100, L504.2610, L500.4050, L501.9940 #### [facility] [address] [place], [address] Creatinine [Mass/Vol] 1.05 mg/dL Normal 0.70-1.30 [facility] Comment on above: Order Comment: UTO F ROM PORT 1 Result Comment: The validity of the calculated GFR GFRAA in patients over 70 years has not been determined. Clinical correlation is essential. Performed By: #### L 100.0100, L504.2610, L500.4050, L501.9940 #### [facility] [address] [place], [address] ECRCL 76.57 ml/min Normal [facility] Comment on above: Order Comment: UTO F ROM PORT 1 Performed By: #### L 100.0100, L504.2610, L500.4050, L501.9940 #### [facility] [address] [place], [address] EST GFR - AA 89 mL/min Normal >60 [facility] Comment on above: Order Comment: UTO F ROM PORT 1 Result Comment: Afri can Nigerian GFR Calc Performed By: #### L 100.0100, L504.2610, L500.4050, L501.9940 #### [facility] [address] [place], [address] GAP 6 Normal 5-15 [facility] Comment on above: Order Comment: UTO F ROM PORT 1 Performed By: #### L 100.0100, L504.2610, L500.4050, L501.9940 #### [facility] [address] [place], [address] GFR/1.73 sq M.predicted among non-blacks MDRD (S/P/Bld) [Vol rate/Area] 73 mL/min/{1.73_m2} Normal >60 [facility] Comment on above: Order Comment: UTO F ROM PORT 1 Result Comment: Non- GFR Calc Performed By: #### L 100.0100, L504.2610, L500.4050, L501.9940 #### [facility] [address] [place], [address] Globulin (S) [Mass/Vol] 4.2 g/dL Normal 2.2-4.2 [facility] Comment on above: Order Comment: UTO F ROM PORT 1 Performed By: #### L 100.0100, L504.2610, L500.4050, L501.9940 #### [facility] [address] [place], [address] Glucose [Mass/Vol] 124 mg/dL High 74-106 [facility] Comment on above: Order Comment: UTO F ROM PORT 1 Result Comment: Fast ing Glucose result from 100 to 125 mg/dL suggests IMPAIRED HOMEOSTASIS per A.D.A. criteria. Performed By: #### L 100.0100, L504.2610, L500.4050, L501.9940 #### [facility] [address] [place], [address] Potassium [Moles/Vol] 3.9 mmol/L Normal 3.5-5.1 [facility] Comment on above: Order Comment: UTO F ROM PORT 1 Performed By: #### L 100.0100, L504.2610, L500.4050, L501.9940 #### [facility] [address] [place], [address] Sodium [Moles/Vol] 139 mmol/L Normal 136-145 [facility] Comment on above: Order Comment: UTO F ROM PORT 1 Performed By: #### L 100.0100, L504.2610, L500.4050, L501.9940 #### [facility] [address] [place], [address] T PROT 7.4 g/dL Normal 6.4-8.2 [facility] Comment on above: Order Comment: UTO F ROM PORT 1 Performed By: #### L 100.0100, L504.2610, L500.4050, L501.9940 #### [facility] [address] [place], [address] Urea nitrogen [Mass/Vol] 20 mg/dL High 7-18 [facility] Comment on above: Order Comment: UTO F ROM PORT 1 Performed By: #### L 100.0100, L504.2610, L500.4050, L501.9940 #### [facility] [address] [place], [address] LDHon 08-03-2024 LDH 161 U/L Normal 87-241 [facility] Comment on above: Order Comment: UTO F ROM PORT 1 Performed By: #### L 100.0100, L504.2610, L500.4050, L501.9940 #### [facility] [address] [place], [address] Oncology Visit Reporton 07-16 Oncology Visit Report [facility] [address] [place] [address] OFFICE VISIT Date of Service: 08/03/24 1428 MR#: [id number] Acct: [id number] Name: LISSET FARMER Rep #: [id number] : 1950 From: Lele Denis MD Age/Sex: 74/M [place] [facility] [place]: Signed HPI Subjective Date of Service 08/03/24 Chief Complaint F/u for HCL and prostate cancer stage IV management. 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 Bone marrow biopsy on 12/17/2015 was consistent with hairy cell leukemia. He started treatment with pentostatin and completed 12 cycles of pentostatin in May 2016 with remission. He was on observation, found to have Prostate cancer stage IV-retroperitoneal nodes and bones (cTx cN1 M1b), PSA greater than 2000 on 01/16/2019. Prostate biopsy o/n 01/24/2019 showed /Prostatic adenocarcinoma Rohit (5+5). He has started hormonal therapy (Lupron 02/09/2019 under the care of Dr. Guzman). Had a port placed on 02/10/2019. Received Taxotere from 02/16/19- 06/01/19. CT on 06/27/2019 showed significant decrease in retroperitoneal and pelvic nodes-Partial response. He remains on LHRH agonist every [address] Guzman's office. PSA is rising slowly so was started on Apalutamide. CT A/P on 04/07/22 demonstrated stability of left sided pelvic adenopathy. Bone scan on 08/03/2022 showed no evidence of metastatic disease. Comes for follow up, feeling well. [facility] Medical History Prostate cancer Elevated PSA Kidney stones Hematuria Pancytopenia High risk medication use KATHY (obstructive sleep apnea) Fatty liver disease Agranulocytosis secondary to cancer chemotherapy Drug induced neutropenia Hairy cell leukemia Obesity Hypertension Sleep apnea Surgical History History of prostate biopsy Basal cell carcinoma of nose Family History Mother Hypertension CVA (cerebral vascular accident) Breast cancer Sister CVA (cerebral vascular accident) Social History second hand exposure: No alcohol intake: never substance use type: does not use Intake Vital Signs 04/26/24 07:42 08/03/24 14:29 08/03/24 14:31 Height 5 ft 11 in 5 ft 11 in 5 ft 11 in Weight: 110.223 kg 108.607 kg BMI 33.9 33.3 BP 150/84 H 152/81 H Blood Pressure Location Rt brachial Lt brachial Position Sitting Sitting Respiration 18 18 Pulse 55 L 52 L Pulse Source Monitor Monitor Temp 97.7 F L 98 F Temperature Source Temporal Artery Temporal Artery Pulse Oximetry (%) 94 94 Oxygen Delivery Method room air room air Intake Is patient in pain?: No Allergies sulfamethoxazole (From Bactrim) Adverse Reaction (Intermediate, Verified 08/03/24 14:29) Rash trimethoprim (From Bactrim) Adverse Reaction (Intermediate, Verified 08/03/24 14:29) Rash Medications ???Medication ???Instructions ???Recorded ???Confirmed ???Type lisinopril 40 mg tablet 40 mg PO DAILY bp 12/09/15 08/03/24 History amlodipine 5 mg tablet 10 mg PO DAILY bp 01/03/18 08/03/24 History calcium carbonate 250 mg-vitamin 1 ea PO DAILY 10/29/20 08/03/24 History D3 3.125 mcg (125 unit) tablet metoprolol tartrate 50 mg tablet 50 mg PO QDAY 04/26/24 08/03/24 History Have you fallen in the past year?: No Central Venous Access Central Venous Access: Yes Laboratory Results 08/03/24 08/09/23 08/09/23 13:07 08:57 08:11 WBC 5.9 6.1 Hgb 12.4 L 13.0 Hct 38.1 L 41.0 Plt Count 207 219 Absolute Neuts (auto) Absolute Lymphs (auto) Sodium Potassium Chloride Carbon Dioxide BUN Creatinine Glucose Calcium Total Bilirubin AST ALT Alkaline Phosphatase Lactate Dehydrogenase Total Protein Albumin Globulin Total PSA 4.26 H 20.20 H 04/03/22 10/23/21 10/13/21 10:05 10:00 09:57 WBC 5.6 Hgb 12.2 L Hct 36.9 L Plt Count 202 Absolute Neuts (auto) Absolute Lymphs (auto) Sodium 143 Potassium 3.7 Chloride 111 H Carbon Dioxide 27.0 BUN 23 H Creatinine 1.05 Glucose 155 H Calcium 8.9 Total Bilirubin 0.40 AST 14 L ALT 26 Alkaline Phosphatase 78 Lactate Dehydrogenase 174 Total Protein 7.3 Albumin 3.2 Globulin 4.1 Total PSA 12.50 H 9.11 H 03/26/20 10/30/19 06/01/19 11:27 10:00 09:30 WBC 6.2 Hgb 12.1 L Hct 37.7 L Plt Count 230 Absolute Neuts (auto) 4.6 Absolute Lymphs (auto) 0.98 Sodium Potassium Chloride Carbon Dioxide BUN Creatinine Glucose Calcium Total Bilirubin (more content not included)... Normal [facility] PSA,Total- Diagnosticon - PSA, DIAGNOSTIC 4.26 ng/mL High 0.0-4.0 [facility] Comment on above: Order Comment: UTO ROM PORT 1 Result Comment: This test was performed using the TPSA assay method for the Dimension chemistry system. Values obtained with different assay methods cannot be used interchangably. When changing PSA assays in the course of monitoring a patient, additional sequential testing should be carried out to confirm baseline values. Performed By: #### L 100.0100, L504.2610, L500.4050, L501.9940 #### [facility] [address] [place], [address] PSA,Total- Diagnosticon -0 PSA, DIAGNOSTIC 4.83 ng/mL High 0.0-4.0 [facility] Comment on above: Order Comment: [facility] I [place] Result Comment: This test was performed using the TPSA assay method for the Dimension chemistry system. Values obtained with different assay methods cannot be used interchangably. When changing PSA assays in the course of monitoring a patient, additional sequential testing should be carried out to confirm baseline values. Performed By: #### L 501.9940 #### [facility] [address] [place], [place], [address] Pulmonary Visit Reporton Pulmonary Visit Report [facility] [place] [address] [place], [place] [address] OFFICE VISIT Date of Service: 04/26/24 MR#: [id number] Acct: [id number] Name: LISSET FARMER Rep #: [id number] : 1950 Provider: BINA Zamora Age/Sex: 74/M [place] [facility] [place] Status: Signed Assessment and Plan Assessment and Plan (1) KATHY (obstructive sleep apnea): Status: Chronic (2) Obesity: Status: Chronic Qualifiers: Obesity severity: morbid Obesity type: due to excess calories Qualified Code(s): E66.01 - Morbid (severe) obesity due to excess calories Plan Stable, he is using and benefiting from Pap therapy. No indication for titration study at this time. Continue to encourage weight loss. Contact the office for any new or worsening symptoms in the meantime. Follow-up in 1 year. Plan Details Follow Up: 1 Year ([facility]) HPI 1 Y FU Chief Complaint: Routine follow-up HPI Comments Details: This patient presents to the office today for routine follow-up of his obstructive sleep apnea. He is ambulatory and currently on room air. He has not recently been seen in the ED or urgent care for any respiratory illness. He has not required any antibiotics or prednisone for any breathing problems. He denies any difficulty with shortness of breath. He denies any cough, sputum production or hemoptysis. He denies any wheezing, chest tightness, chest pain or palpitations. Has not had any fever, chills or body aches. Patient reports waking up feeling rested refreshed with use of PAP device. He is not having difficulty with dry mouth. He denies any difficulty with mask leaks. He has between 0 and 1, maybe 2 episodes of nocturia. He is not falling off to sleep unintentionally. He does admit to an occasional nap, that is purposeful. He is not having difficulty with morning headaches. If you recall, he is a lifelong never smoker. Compliance report for the past 30 days shows 93.5% compliance with an average use of 4 hours and 21 minutes per night. Current setting is 17 cmH2O with a residual AHI of 4.5 events per hour. Intake Vital Signs 03/04/23 05:49 08/09/23 09:10 04/26/24 07:42 Height 5 ft 11 in 5 ft 11 in 5 ft 11 in Weight: 243 lb BMI 33.9 BP 150/84 H Blood Pressure Location Rt brachial Position Sitting Respiration 18 Pulse 55 L Pulse Source Monitor Temp 97.7 F L Temperature Source Temporal Artery Pulse Oximetry (%) 94 Oxygen Delivery Method room air Intake Visit Reasons: 1 Y FU Chief Complaint: F/u for HCL and prostate cancer stage IV management. 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: [employer] Accompanied by: Self Allergies sulfamethoxazole (From Bactrim) Adverse Reaction (Intermediate, Verified 04/26/24 08:45) Rash trimethoprim (From Bactrim) Adverse Reaction (Intermediate, Verified 04/26/24 08:45) Rash Medications ???Medication ???Instructions ???Recorded ???Confirmed ???Type lisinopril 40 mg tablet 40 mg PO DAILY bp 12/09/15 04/26/24 History amlodipine 5 mg tablet 10 mg PO DAILY bp 01/03/18 04/26/24 History calcium carbonate 250 mg-vitamin 1 ea PO DAILY 10/29/20 04/26/24 History D3 3.125 mcg (125 unit) tablet metoprolol tartrate 50 mg tablet 50 mg PO QDAY 04/26/24 04/26/24 History PFSH Medical History Prostate cancer Elevated PSA Kidney stones Hematuria Pancytopenia High risk medication use KATHY (obstructive sleep apnea) Fatty liver disease Agranulocytosis secondary to cancer chemotherapy Drug induced neutropenia Hairy cell leukemia Obesity Hypertension Sleep apnea Surgical History History of prostate biopsy Basal cell carcinoma of nose Family History Mother Hypertension CVA (cerebral vascular accident) Breast cancer Sister CVA (cerebral vascular accident) Social History second hand exposure: No alcohol intake: never substance use type: does not use Review of Systems Resp Respiratory: Yes as per HPI Exam Const Constitutional: Positive conversant, cooperative, in no acute respiratory distress, healthy appearing, well developed, well nourished, good hygiene and obese Head Head: Yes normocephalic, Yes atraumatic and No cyanosis of lips/distal nose Eyes Eye: Positive clear conjunctiva; Negative nystagmus Ears Ear: Positive hearing normal Nose Nose: Yes external nose normal Mouth Mouth: Positive oral mucosae normal Neck Neck: Positive normal visual inspection, full ROM and trachea midline Chest Wall Chest: Positive normal inspection of the chest and symmetric chest movement R (more content not included)... Normal [facility] No Panel InformationOrdered By: ANDRA Hunt on 05-04-2023 Prostate Specific Antigen Total 9.82 ng/mL 0.0-4.0 [facility] Comment on above: This test was perfor med using the TPSA assay method for the[facility] system. Values obtained with differentassay methods cannot be used interchangably.When changing PSA assays in the course of monitoring apatient, additional sequential testing should be carriedout to confirm baseline values. Absolute lymphocyte counton 07-01-2022 Lymphocytes Auto (Unsp spec) [#/Vol] 0.86 10*3/uL 0.83-4.51 [facility] Work Phone: [phone] Basophil percentageon 2021 Basophils/100 WBC (Bld) 0.6 % 0-1 [facility] Work Phone: [phone] Bilirubin [Mass/Vol] 0.40 mg/dL 0.20-1.[address] [facility] Work Phone: Comment on above: For patients on eltr ombopag therapy, use of Dimension [place] TBIL is not recommended. Chloride [Moles/Vol] 107 mmol/L 98-[address] [facility] Work Phone: [phone] Eosinophils/100 WBC (Bld) 3.5 % 0-5 [facility] Work Phone: [phone] Glucose [Mass/Vol] 178 mg/dL 74-106 [facility] Work Phone: Comment on above: Fasting Glucose resu lt greater than or equal to 126 mg/dL suggests DIABETES MELLITUS per A.D.A. criteria. Neutrophils (Bld) [#/Vol] 3.5 10*3/uL 2.0-7.7 [facility] Work Phone: [phone] Neutrophils/100 WBC (Bld) 71.2 % 47-70 [facility] Work Phone: [phone] Potassium [Moles/Vol] 4.0 mmol/L 3.5-5.1 [facility] Work Phone: [phone] Protein [Mass/Vol] 7.3 g/dL 6.4-8.2 [facility] Work Phone: Sodium [Moles/Vol] 143 mmol/L 136-145 [facility] Work Phone: WBC (Bld) [#/Vol] 4.9 10*3/uL 4.4-11.0 [facility] Work Phone: Blood erythrocytes count (nu mber/volume)on 07-01-2022 RBC (Bld) [#/Vol] 4.05 10*6/uL 4.6-6.2 [facility]: Blood hemoglobin measurement (mass/volume)on 07-01-2022 Hemoglobin (Bld) [Mass/Vol] 12.1 g/dL 13.0-16.5 [facility] Work Phone: Blood lymphocytes/100 leukoc yteson 07-01-2022 Lymphocytes/100 WBC (Bld) 17.7 % 19-41 [facility] Work Phone: Blood monocytes/100 leukocyt eson 07-01-2022 Monocytes/100 WBC (Bld) 6.6 % 0-10 [facility] Work Phone: Blood platelet mean volumeon 07-01-2022 Platelet mean volume (Bld) [Entitic vol] 10.6 fL 6.2-12.0 [facility] Work Phone: Determination of erythrocyte mean corpuscular volume (MCV)on 07-01-2022 MCV (RBC) [Entitic vol] 91.1 fL 80-94 [facility] Work Phone: Hematocrit Auto (Bld) [Volum e fraction]on 07-01-2022 Hematocrit (Bld) [Volume fraction] 36.9 % 40-54 [facility] Work Phone: Laboratory - Chemistry and C hemistry - challengeon 07-01-2022 ALP [Catalytic activity/Vol] 66 U/L 45-117 [facility] Work Phone: ALT [Catalytic activity/Vol] 30 U/L 16-61 [facility] Work Phone: CO2 [Moles/Vol] 27.0 mmol/L 21.0-32.0 [facility] Work Phone: Globulin (S) [Mass/Vol] 3.8 g/dL 2.2-4.2 [facility] Work Phone: Urea nitrogen/Creatinine [Mass ratio] 18.7 mg/mg 10-20 [facility] Work Phone: Laboratory - Hematology and Cell countson 07-01-2022 Erythrocyte distribution width (RBC) [Entitic vol] 46.7 fL 35.1-43.9 [facility] Work Phone: Erythrocyte distribution width (RBC) [Ratio] 13.9 % 11.6-14.6 [facility] Work Phone: Immature granulocytes/100 WBC (Bld) 0.400 % 0.0-0.9 [facility] Work Phone: Comment on above: IG% - Immature Granu locytes (promyelocytes, myelocytes and metamyelocytes) > 1% indicates that a LEFT SHIFT is Present. MCH (RBC) [Entitic mass] 29.9 pg 27.0-32.0 [facility] Work Phone: Nucleated RBC/100 WBC (Bld) [Ratio] 0 % 0-5 [facility] Work Phone: MCHC Auto (RBC) [Mass/Vol]on 07-01-2022 MCHC (RBC) [Mass/Vol] 32.8 g/dL 32-36 [facility] Work Phone: No Panel Informationon 07-01 Estimated Creatinine Clearance Calc 66.46 ml/min [facility] Work Phone: Estimated GFR (MDRD) Amer 87 mL/min >60 [facility] Work Phone: Comment on above: GFR Calc Estimated GFR (MDRD) Non-Af Amer 72 mL/min >60 [facility] Work Phone: Comment on above: Non- GFR Calc Prostate Specific Antigen Total 22.50 ng/mL 0.0-4.0 [facility] Work Phone: Comment on above: This test was perfor med using the TPSA assay method for [employer] chemistry system. Values obtained with differentassay methods cannot be used interchangably.When changing PSA assays in the course of monitoring apatient, additional sequential testing should be carriedout to confirm baseline values. Platelets bldon 07-01-2022 Platelets (Bld) [#/Vol] 189 10*3/uL 150-450 [facility] Work Phone: Serum or plasma albumin lakeshia urement (mass/volume)on 07-01-2022 Albumin [Mass/Vol] 3.5 g/dL 3.2-5.0 [facility] Work Phone: Serum or plasma albumin/glob ulin mass ratioon 07-01-2022 Albumin/Globulin [Mass ratio] 0.9 {ratio} 0.9-2.4 [facility] Work Phone: Serum or plasma calcium lakeshia urement (mass/volume)on 07-01-2022 Calcium [Mass/Vol] 8.8 mg/dL 8.5-10.1 [facility] Work Phone: Serum or plasma creatinine m easurement (mass/volume)on 07-01-2022 Creatinine [Mass/Vol] 1.07 mg/dL 0.70-1.30 [facility] Work Phone: Comment on above: The validity of the calculated GFR & GFRAA in patients over 70 years has not been determined. Clinical correlation is essential. Serum or plasma urea nitroge n measurement (mass/volume)on 07-01-2022 Urea nitrogen [Mass/Vol] 20 mg/dL 7-18 [facility] Work Phone: Thin prep Papanicolaou smear with manual screeningon 07-01-2022 Thin prep Papanicolaou smear with manual screening 19 U/L 15-37 [facility] Work Phone: Thin prep Papanicolaou smear with manual screening 9 5-15 [facility] Work Phone: Thin prep Papanicolaou smear with manual screening 194 U/L 87-241 [facility] Work Phone: Whole blood hemoglobin A1c/t otal hemoglobin ratio (mass fraction)on 07-01-2022 HbA1c (Bld) [Mass fraction] 6.0 % 3.8-5.6 [facility] Work Phone: Comment on above: Normal < 5.7 % Predi abetic 5.7 - 6.4 % Diabetic >or= 6.5 % Please note range changes. Absolute lymphocyte counton 04-03-2022 Lymphocytes Auto (Unsp spec) [#/Vol] 1.02 10*3/uL 0.83-4.51 [facility] Work Phone: Basophil percentageon 2021 Basophils/100 WBC (Bld) 0.8 % 0-1 [facility] Work Phone: Bilirubin [Mass/Vol] 0.40 mg/dL 0.20-1.[address] [facility] Work Phone: Comment on above: For patients on eltr ombopag therapy, use of Dimension [place] TBIL is not recommended. Chloride [Moles/Vol] 108 mmol/L 98-[address] [facility] Work Phone: Eosinophils/100 WBC (Bld) 3.0 % 0-5 [facility] Work Phone: Glucose [Mass/Vol] 104 mg/dL 74-106 [facility] Work Phone: Comment on above: Fasting Glucose resu lt from 100 to 125 mg/dL suggests IMPAIRED HOMEOSTASIS per A.D.A. criteria. Neutrophils (Bld) [#/Vol] 3.4 10*3/uL 2.0-7.7 [facility] Work Phone: Neutrophils/100 WBC (Bld) 66.8 % 47-70 [facility] Work Phone: Potassium [Moles/Vol] 4.1 mmol/L 3.5-5.1 [facility] Work Phone: Protein [Mass/Vol] 7.4 g/dL 6.4-8.2 [facility] Work Phone: Sodium [Moles/Vol] 140 mmol/L 136-145 [facility] Work Phone: WBC (Bld) [#/Vol] 5.0 10*3/uL 4.4-11.0 [facility] Work Phone: Blood erythrocytes count (nu mber/volume)on 04-03-2022 RBC (Bld) [#/Vol] 4.20 10*6/uL 4.6-6.2 [facility]: Blood hemoglobin measurement (mass/volume)on 04-03-2022 Hemoglobin (Bld) [Mass/Vol] 12.4 g/dL 13.0-16.5 [facility] Work Phone: Blood lymphocytes/100 leukoc yteson 04-03-2022 Lymphocytes/100 WBC (Bld) 20.3 % 19-41 [facility] Work Phone: Blood monocytes/100 leukocyt eson 04-03-2022 Monocytes/100 WBC (Bld) 8.7 % 0-10 [facility] Work Phone: Blood platelet mean volumeon 04-03-2022 Platelet mean volume (Bld) [Entitic vol] 10.4 fL 6.2-12.0 [facility] Work Phone: Determination of erythrocyte mean corpuscular volume (MCV)on 04-03-2022 MCV (RBC) [Entitic vol] 90.7 fL 80-94 [facility] Work Phone: Hematocrit Auto (Bld) [Volum e fraction]on 04-03-2022 Hematocrit (Bld) [Volume fraction] 38.1 % 40-54 [facility] Work Phone: [phone] Laboratory - Chemistry and C hemistry - challengeon 04-03-2022 ALP [Catalytic activity/Vol] 68 U/L 45-117 [facility] Work Phone: ALT [Catalytic activity/Vol] 25 U/L 16-61 [facility] Work Phone: [phone] CO2 [Moles/Vol] 29.0 mmol/L 21.0-32.0 [facility] Work Phone: [phone] Globulin (S) [Mass/Vol] 3.8 g/dL 2.2-4.2 [facility] Work Phone: Urea nitrogen/Creatinine [Mass ratio] 17.6 mg/mg 10-20 [facility] Work Phone: Laboratory - Hematology and Cell countson 04-03-2022 Erythrocyte distribution width (RBC) [Entitic vol] 46.5 fL 35.1-43.9 [facility] Work Phone: Erythrocyte distribution width (RBC) [Ratio] 13.9 % 11.6-14.6 [facility] Work Phone: Immature granulocytes/100 WBC (Bld) 0.400 % 0.0-0.9 [facility] Work Phone: [phone] Comment on above: IG% - Immature Granu locytes (promyelocytes, myelocytes and metamyelocytes) > 1% indicates that a LEFT SHIFT is Present. MCH (RBC) [Entitic mass] 29.5 pg 27.0-32.0 [facility] Work Phone: Nucleated RBC/100 WBC (Bld) [Ratio] 0 % 0-5 [facility] Work Phone: MCHC Auto (RBC) [Mass/Vol]on 04-03-2022 MCHC (RBC) [Mass/Vol] 32.5 g/dL 32-36 [facility] Work Phone: No Panel Informationon 04-03 Estimated Creatinine Clearance Calc 69.72 ml/min [facility] Work Phone: Estimated GFR (MDRD) Amer 92 mL/min >60 [facility] Work Phone: Comment on above: GFR Calc Estimated GFR (MDRD) Non-Af Amer 76 mL/min >60 [facility] Work Phone: Comment on above: Non- GFR Calc Prostate Specific Antigen Total 12.50 ng/mL 0.0-4.0 [facility] Work Phone: Comment on above: This test was perfor med using the TPSA assay method for [employer] chemistry system. Values obtained with differentassay methods cannot be used interchangably.When changing PSA assays in the course of monitoring apatient, additional sequential testing should be carriedout to confirm baseline values. Platelets bldon 04-03-2022 Platelets (Bld) [#/Vol] 193 10*3/uL 150-450 [facility] Work Phone: Serum or plasma albumin lakeshia urement (mass/volume)on 04-03-2022 Albumin [Mass/Vol] 3.6 g/dL 3.2-5.0 [facility] Work Phone: Serum or plasma albumin/glob ulin mass ratioon 04-03-2022 Albumin/Globulin [Mass ratio] 0.9 {ratio} 0.9-2.4 [facility] Work Phone: Serum or plasma calcium lakeshia urement (mass/volume)on 04-03-2022 Calcium [Mass/Vol] 9.0 mg/dL 8.5-10.1 [facility] Work Phone: Serum or plasma creatinine m easurement (mass/volume)on 04-03-2022 Creatinine [Mass/Vol] 1.02 mg/dL 0.70-1.30 [facility] Work Phone: Comment on above: The validity of the calculated GFR & GFRAA in patients over 70 years has not been determined. Clinical correlation is essential. Serum or plasma urea nitroge n measurement (mass/volume)on 04-03-2022 Urea nitrogen [Mass/Vol] 18 mg/dL 7-18 [facility] Work Phone: Thin prep Papanicolaou smear with manual screeningon 04-03-2022 Thin prep Papanicolaou smear with manual screening 14 U/L 15-37 [facility] Work Phone: Thin prep Papanicolaou smear with manual screening 3 5-15 [facility] Work Phone: Thin prep Papanicolaou smear with manual screening 186 U/L 87-241 [facility] Work Phone: Basophil percentageon 2021 Testosterone [Mass/Vol] 10.98 ng/dL [facility] Work Phone: Comment on above: CENTRAL 90% REFERENC E RANGES MALE AGE <50 197.44 - 669.58 ng/dL MALE AGE > or = 50 187.72 - 684.19 ng/dL FEMALE AGE <50 8.38 - 35.01 ng/dL FEMALE AGE > or = 50 <7.00 - 35.92 ng/dL Effective as of 06/10/21 No Panel Informationon 01-14 Prostate Specific Antigen Total 9.21 ng/mL 0.0-4.0 [facility] Work Phone: Comment on above: This test was perfor med using the TPSA assay method [facility]. Values obtained with differentassay methods cannot be used interchangably.When changing PSA assays in the course of monitoring apatient, additional sequential testing should be carriedout to confirm baseline values. Blood platelet adequacy dete ction by light microscopyon 06-15-2019 Platelets LM Ql (Bld) ADEQUATE ADEQ [facility] Work Phone: No Panel Informationon 06-15 Differential Comment SCANNED [facility] Work Phone: Review by pathologiston Pathologist review Byron (Unsp spec) [Interp] Reviewed [facility] Work Phone: Comment on above: Previous reported re sult: March shaun Edited by: RGOOD on 06/16/19:1354Leukopenia and neutropenia.Clinical correlation necessary.Orville Mckay M.D. 06/16/19 AMENDED REPORT 06/16/19 [id number] PATH REV previously reported as: March Absolute reticulocyte counto n 06-01-2019 Reticulocytes (Bld) [#/Vol] 0.00 10*3/uL 0-5 [facility] Work Phone: Laboratory - Hematology and Cell countson 05-23-2019 Erythrocyte distribution width (RBC) [Ratio] 15.7 % 11.6-14.6 [facility] Work Phone: No Panel Informationon 05-23 Red Cell Distribution Width Diff 50.2 fl 35.1-43.9 [facility] Work Phone: Total cell counton 9 Cells counted Molgen (Bld/Tiss) [#] Not Reportable [facility] Work Phone: Vital Signs Date Time Vital Sign Value Performing Clinician Faci lity 05-09-2025 12:09-0400 Diastolic blood pressure 87 mm[Hg] Dr. Lisset Barrera DO Work Phone: [facility] 05-09-2025 12:09-0400 Heart rate 62 /min Dr. Lisset Barrera DO Work Phone: [facility] 05-09-2025 12:09-0400 Respiratory rate 22 /min Dr. Lisset Barrera DO Work Phone: [facility] 05-09-2025 12:09-0400 SaO2% (BldA) [Mass fraction] 98 % Dr. Lisset Barrera DO Work Phone: [facility] 05-09-2025 12:09-0400 Systolic blood pressure 127 mm[Hg] Dr. Lisset Barrera DO Work Phone: [facility] 05-09-2025 10:14-0400 Body mass index (BMI) [Ratio] 33 kg/m2 Dr. Lisset Barrera DO Work Phone: [facility] 05-09-2025 10:14-0400 Body weight 107.[address] Lisset Barrera DO Work Phone: [facility] 05-09-2025 09:52-0400 Body height 180.[address] Lisset Barrera DO Work Phone: [facility] 05-09-2025 09:52-0400 Body temperature 98.6 [degF] Dr. Lisset Barrera DO Work Phone: [facility] 05-09-2025 07:47-0400 Body mass index (BMI) [Ratio] 33.2 kg/m2 Dr. Lisset Barrera DO Work Phone: [facility] 05-09-2025 07:47-0400 Body temperature 97.4 [degF] Dr. Lisset Barrera DO Work Phone: [facility] 05-09-2025 07:47-0400 Body weight 107.[address] Lisset Barrera DO Work Phone: [facility] 05-09-2025 07:47-0400 Diastolic blood pressure 96 mm[Hg] Dr. Lisset Barrera DO Work Phone: [facility] 05-09-2025 07:47-0400 Heart rate 61 /min Dr. Lisset Barrera DO Work Phone: [facility] 05-09-2025 07:47-0400 Respiratory rate 18 /min Dr. Lisset Barrera DO Work Phone: [facility] 05-09-2025 07:47-0400 SaO2% (BldA) [Mass fraction] 94 % Dr. Lisset Barrera DO Work Phone: [facility] 05-09-2025 07:47-0400 Systolic blood pressure 136 mm[Hg] Dr. Lisset Barrera DO Work Phone: [facility] 03-04-2023 05:49-0400 Body height 180.[address] Lisset Barrera Work Phone: [facility] 03-04-2023 05:49-0400 Body mass index (BMI) [Ratio] 33.5 kg/m2 Dr. Lisset Barrera Work Phone: [facility] 03-04-2023 05:49-0400 Body temperature 97.6 [degF] Dr. Lisset Barrera Work Phone: [facility] 03-04-2023 05:49-0400 Body weight 108.[address] Lisset Barrera Work Phone: [facility] 03-04-2023 05:49-0400 Diastolic blood pressure 82 mm[Hg] Dr. Lisset Barrera Work Phone: [facility] 03-04-2023 05:49-0400 Heart rate 64 /min Dr. Lisset Barrera Work Phone: [facility] 03-04-2023 05:49-0400 Respiratory rate 18 /min Dr. Lisset Barrera Work Phone: [facility] 03-04-2023 05:49-0400 SaO2% (BldA) [Mass fraction] 96 % Dr. Lisset Barrera Work Phone: [facility] 03-04-2023 05:49-0400 Systolic blood pressure 141 mm[Hg] Dr. Lisset Barrera Work Phone: [facility] 08-05-2022 09:53-0400 Body height 180.[address] Lisset Barrera Work Phone: [facility] Work Phone: 08-05-2022 09:48-0400 Body mass index (BMI) [Ratio] 33.3 kg/m2 Dr. Lisset Barrera Work Phone: [facility] Work Phone: 08-05-2022 09:48-0400 Body temperature 98.3 [degF] Dr. Lisset Barrera Work Phone: [facility] Work Phone: 08-05-2022 09:48-0400 Body weight 108.[address] Lisset Barrera Work Phone: [facility] Work Phone: 08-05-2022 09:48-0400 Diastolic blood pressure 85 mm[Hg] Dr. Lisset Barrera Work Phone: [facility] Work Phone: 08-05-2022 09:48-0400 Heart rate 64 /min Dr. Lisset Barrera Work Phone: [facility] Work Phone: 08-05-2022 09:48-0400 Respiratory rate 15 /min Dr. Lisset Barrera Work Phone: [facility] Work Phone: 08-05-2022 09:48-0400 SaO2% (BldA) [Mass fraction] 95 % Dr. Lisset Barrera Work Phone: [facility] Work Phone: 08-05-2022 09:48-0400 Systolic blood pressure 144 mm[Hg] Dr. Lisset Barrera Work Phone: [facility] Work Phone: 07-23-2022 09:01-0400 Body mass index (BMI) [Ratio] 33.5 kg/m2 Dr. Lisset Barrera Work Phone: [facility] Work Phone: 07-23-2022 09:01-0400 Body temperature 97.7 [degF] Dr. Lisset Barrera Work Phone: [facility] Work Phone: 07-23-2022 09:01-0400 Body weight 109.[address] Lisset Barrera Work Phone: [facility] Work Phone: 07-23-2022 09:01-0400 Diastolic blood pressure 87 mm[Hg] Dr. Lisset Barrera Work Phone: [facility] Work Phone: 07-23-2022 09:01-0400 Heart rate 50 /min Dr. Lisset Barrera Work Phone: [facility] Work Phone: 07-23-2022 09:01-0400 Respiratory rate 18 /min Dr. Lisset Barrera Work Phone: [facility] Work Phone: 07-23-2022 09:01-0400 SaO2% (BldA) [Mass fraction] 96 % Dr. Lisset Barrera Work Phone: [facility] Work Phone: 07-23-2022 09:01-0400 Systolic blood pressure 147 mm[Hg] Dr. Lisset Barrera Work Phone: [facility] Work Phone: 07-02-2022 11:29-0400 Body height 180.[address] Lisset Barrera Work Phone: [facility] Work Phone: 07-02-2022 11:24-0400 Body mass index (BMI) [Ratio] 33.9 kg/m2 Dr. Lisset Barrera Work Phone: [facility] Work Phone: 07-02-2022 11:24-0400 Body temperature 98.4 [degF] Dr. Lisset Barrera Work Phone: [facility] Work Phone: 07-02-2022 11:24-0400 Body weight 110.[address] Lisset Barrera Work Phone: [facility] Work Phone: 07-02-2022 11:24-0400 Diastolic blood pressure 82 mm[Hg] Dr. Lisset Barrera Work Phone: [facility] Work Phone: 07-02-2022 11:24-0400 Heart rate 52 /min Dr. Lisset Barrera Work Phone: [facility] Work Phone: 07-02-2022 11:24-0400 Respiratory rate 15 /min Dr. Lisset Barrera Work Phone: [facility] Work Phone: 07-02-2022 11:24-0400 SaO2% (BldA) [Mass fraction] 94 % Dr. Lisset Barrera Work Phone: [facility] Work Phone: 07-02-2022 11:24-0400 Systolic blood pressure 154 mm[Hg] Dr. Lisset Barrera Work Phone: [facility] Work Phone: 04-09-2022 10:19-0400 Body mass index (BMI) [Ratio] 34.4 kg/m2 Dr. Lisset Barrera Work Phone: [facility] Work Phone: 04-09-2022 10:19-0400 Body temperature 98.2 [degF] Dr. Lisset Barrera Work Phone: [facility] Work Phone: 04-09-2022 10:19-0400 Body weight 112.[address] Lisset Barrera Work Phone: [facility] Work Phone: 04-09-2022 10:19-0400 Diastolic blood pressure 92 mm[Hg] Dr. Lisset Barrera Work Phone: [facility] Work Phone: 04-09-2022 10:19-0400 Heart rate 57 /min Dr. Lisset Barrera Work Phone: [facility] Work Phone: 04-09-2022 10:19-0400 Respiratory rate 16 /min Dr. Lisset Barrera Work Phone: [facility] Work Phone: 04-09-2022 10:19-0400 SaO2% (BldA) [Mass fraction] 96 % Dr. Lisset Barrera Work Phone: [facility] Work Phone: 04-09-2022 10:19-0400 Systolic blood pressure 158 mm[Hg] Dr. Lisset Barrera Work Phone: [facility] Work Phone: 04-09-2022 10:19-0400 Body height 180.[address] Lisset Barrera Work Phone: [facility] Work Phone: 04-09-2022 10:19-0400 Body mass index (BMI) [Ratio] 34.4 kg/m2 Dr. Lisset Barrera Work Phone: [facility] Work Phone: 04-09-2022 10:19-0400 Body temperature 98.2 [degF] Dr. Lisset Barrera Work Phone: [facility] Work Phone: 04-09-2022 10:19-0400 Body weight 112.[address] Lisset Barrera Work Phone: [facility] Work Phone: 04-09-2022 10:19-0400 Diastolic blood pressure 92 mm[Hg] Dr. Lisset Barrera Work Phone: [facility] Work Phone: 04-09-2022 10:19-0400 Heart rate 57 /min Dr. Lisset Barrera Work Phone: [facility] Work Phone: 04-09-2022 10:19-0400 Respiratory rate 16 /min Dr. Lisset Barrera Work Phone: [facility] Work Phone: 04-09-2022 10:19-0400 SaO2% (BldA) [Mass fraction] 96 % Dr. Lisset Barrera Work Phone: [facility] Work Phone: 04-09-2022 10:19-0400 Systolic blood pressure 158 mm[Hg] Dr. Lisset Barrera Work Phone: [facility] Work Phone: 01-21-2022 04:56-0500 Body mass index (BMI) [Ratio] 33.7 kg/m2 Dr. Lisset Barrera Work Phone: [facility] Work Phone: 01-21-2022 04:56-0500 Body temperature 97.7 [degF] Dr. Lisset Barrera Work Phone: [facility] Work Phone: 01-21-2022 04:56-0500 Body weight 109.[address] Lisset Barrera Work Phone: [facility] Work Phone: 01-21-2022 04:56-0500 Diastolic blood pressure 75 mm[Hg] Dr. Lisset Barrera Work Phone: [facility] Work Phone: 01-21-2022 04:56-0500 Heart rate 60 /min Dr. Lisset Barrera Work Phone: [facility] Work Phone: 01-21-2022 04:56-0500 Respiratory rate 18 /min Dr. Lisset Barrera Work Phone: [facility] Work Phone: 01-21-2022 04:56-0500 SaO2% (BldA) [Mass fraction] 97 % Dr. Lisset Barrera Work Phone: [facility] Work Phone: 01-21-2022 04:56-0500 Systolic blood pressure 122 mm[Hg] Dr. Lisset Barrera Work Phone: [facility] Work Phone: 10-29-2020 10:58-0500 Body mass index (BMI) [Ratio] 32.9 kg/m2 Dr. Lisset Barrera Work Phone: [facility] Work Phone: 10-29-2020 10:58-0500 Body temperature 97.8 [degF] Dr. Lisset Barrera Work Phone: [facility] Work Phone: 10-29-2020 10:58-0500 Body weight 107.[address] Lisset Barrera Work Phone: [facility] Work Phone: 10-29-2020 10:58-0500 Diastolic blood pressure 79 mm[Hg] Dr. Lisset Barrera Work Phone: [facility] Work Phone: 10-29-2020 10:58-0500 Heart rate 53 /min Dr. Lisset Barrera Work Phone: [facility] Work Phone: 10-29-2020 10:58-0500 Respiratory rate 16 /min Dr. Lisset Barrera Work Phone: [facility] Work Phone: 10-29-2020 10:58-0500 SaO2% (BldA) [Mass fraction] 97 % Dr. Lisset Barrera Work Phone: [facility] Work Phone: 10-29-2020 10:58-0500 Systolic blood pressure 139 mm[Hg] Dr. Lisset Barrera Work Phone: [facility] Work Phone: 10-29-2020 09:58-0500 Body mass index (BMI) [Ratio] 32.9 kg/m2 Dr. Lisset Barrera Work Phone: [facility] Work Phone: 10-29-2020 09:58-0500 Body temperature 97.8 [degF] Dr. Lisset Barrera Work Phone: [facility] Work Phone: 10-29-2020 09:58-0500 Body weight 107.[address] Lisset Barrera Work Phone: [facility] Work Phone: 10-29-2020 09:58-0500 Diastolic blood pressure 79 mm[Hg] Dr. Lisset Barrera Work Phone: [facility] Work Phone: 10-29-2020 09:58-0500 Heart rate 53 /min Dr. Lisset Barrera Work Phone: [facility] Work Phone: 10-29-2020 09:58-0500 Respiratory rate 16 /min Dr. Lisset Barrera Work Phone: [facility] Work Phone: 10-29-2020 09:58-0500 SaO2% (BldA) [Mass fraction] 97 % Dr. Lisset Barrera Work Phone: [facility] Work Phone: 10-29-2020 09:58-0500 Systolic blood pressure 139 mm[Hg] Dr. Lisset Barrera Work Phone: [facility] Work Phone: Encounters Encounter Date Encounter Type Care Provider Facility Start: 05-09-2025 End: 05-09-2025 Emergency department patient visit Dr. Lisset Barrera DO Work Phone: -Emergency Department Work Phone: Start: 05-09-2025 End: 05-09-[address] Lisset Barrera DO Work Phone: [facility] Work Phone: Start: 05-09-2025 End: 05-09-2025 Patient encounter procedure Janessa Zamora SUPERVISOR PHOSPHATIC FERTILIZER-C -[facility] Work Phone: Start: 03-06-2025 End: 03-06-[address] Regan Guzman MD -Laboratory Work Phone: Start: 03-06-2025 End: 03-06-2025 ambulatory Regan Guzman Facility:[facility] Start: 11-30-2024 End: 11-30-2024 ambulatory Disha Beckford Facility:[facility] Start: 08-31-2024 End: 08-31-2024 ambulatory [facility] Facility[facility] Start: 08-09-2024 ambulatory [facility] Facility:[facility] Start: 08-03-2024 End: 08-03-2024 ambulatory [facility] Facility:[facility] Start: 05-23-2024 End: 05-23-2024 ambulatory Lisset Barrera Facility:[facility] Start: 04-26-2024 End: 04-26-2024 ambulatory Janessa Zamora NP Facility:[facility] Start: 05-04-2023 End: 05-04-[address] Lisset Barrera Work Phone: [facility] Work Phone: Start: 05-04-2023 End: 05-04-[address] Lisset Barrera Work Phone: [facility]-Laboratory, [facility] Start: 03-04-2023 End: 03-04-[address] Lisset Barrera Work Phone: [facility]-Pulmonary Medicine [facility] Start: 08-05-2022 End: 08-05-[address] Lisset Barrera Work Phone: [facility] Start: 08-03-2022 End: 08-03-[address] Lisset Barrera Work Phone: [facility] Work Phone: Start: 08-03-2022 End: 08-03-[address] Lisset Barrera Work Phone[facility] Start: 07-23-2022 End: 07-23-[address] Lisset Barrera Work Phone: [facility] Start: 07-09-2022 End: 07-09-[address] Lisset Barrera Work Phone: [facility] Work Phone: Start: 07-09-2022 End: 07-09-[address] Lisset Barrera Work Phone: [facility] Start: 07-02-2022 End: 07-02-[address] Lisset Barrera Work Phone: [facility] Start: 07-01-[address] Lisset Barrera Work Phone: [facility] Start: 04-09-2022 End: 04-09-[address] Lsiset Barrera Work Phone: [facility] Start: 04-07-2022 End: 04-07-[address] Lisset Barrera Work Phone: [facility] Start: 04-03-[address] Lisset Barrera Work Phone: [facility] Start: 01-21-2022 End: 01-21-[address] Lisset Barrera Work Phone: [facility]-Pulmonary Medicine [facility] Start: 01-14-2022 End: 01-14-[address] Lisset Barrera Work Phone: [facility]-Laboratory Procedures Date Procedure Procedure Detail Performing Clinician Start: 05-09-2025 Plain chest X-ray Dr. Kelly Barrera DO Work Phone: Start: 05-09-[address] Lisset Barrera DO Work Phone: Start: 03-06-2025 Assay of prostate sp ecific antigen total Dr. Lisset Barrera DO Work Phone: Comment on above: This test was perfor med using the [employer] tPSA method. Measured values of a patient sample can vary depending on the testing procedure used. PSA values determined on patient samples by different testing procedures cannot be used interchangeably. If there is a change in PSA assays while monitoring therapy, sequential testing should be performed to confirm baseline values. Start: 08-03-2022 Radionuclide whole b scotty bone study Dr. Lisset Barrera Work Phone: Start: 07-09-2022 CT of chest and abdomen Dr. Lisset Barrera Work Phone: Start: 04-07-2022 Computed tomography of abdomen and pelvis with intravenous contrast Dr. Lisset Barrera Work Phone: Plan of Treatment Date Care Activity Detail Author Start: 05-09-2025 [facility] Start: 05-09-2025 End: 05-09-2025 [facility] Start: 07-09-2022 Venous catheter care management [facility] Work Phone: Start: 04-07-2022 Venous catheter care management [facility] Work Phone: Start: 01-14-2021 Venous catheter care management [facility] Work Phone: Start: 10-29-2020 Venous catheter care management [facility] Work Phone: Start: 06-15-2019 CT Abdomen and Pelvi s W contrast IV [facility] Work Phone: Start: 06-01-2019 Disease process or c ondition education [facility] Work Phone: Start: 06-01-2019 Medication administr ation assessment [facility] Work Phone: Start: 06-01-2019 Medication monitoring [facility] Work Phone: Start: 06-01-2019 Patient education [facility] Work Phone: Start: 06-01-2019 Precautionary procedure [facility] Work Phone: Start: 06-01-2019 Vital signs measurements [facility] Work Phone: Start: 06-01-2019 [facility] Work Phone: Start: 05-11-2019 Disease process or c ondition education [facility] Work Phone: Start: 05-11-2019 Medication administr ation assessment [facility] Work Phone: Start: 05-11-2019 Medication monitoring [facility] Work Phone: Start: 05-11-2019 Patient education [facility] Work Phone: Start: 05-11-2019 Precautionary procedure [facility] Work Phone: Start: 05-11-2019 Vital signs measurements [facility] Work Phone: Start: 05-11-2019 [facility] Work Phone: Start: 04-20-2019 Disease process or c ondition education [facility] Work Phone: Start: 04-20-2019 Medication administr ation assessment [facility] Work Phone: Start: 04-20-2019 Medication monitoring [facility] Work Phone: Start: 04-20-2019 Patient education [facility] Work Phone: Start: 04-20-2019 Precautionary procedure [facility] Work Phone: Start: 04-20-2019 Vital signs measurements [facility] Work Phone: Start: 04-20-2019 [facility] Work Phone: Start: 03-30-2019 Disease process or c ondition education [facility] Work Phone: Start: 03-30-2019 Medication administr ation assessment [facility] Work Phone: Start: 03-30-2019 Medication monitoring [facility] Work Phone: Start: 03-30-2019 Patient education [facility] Work Phone: Start: 03-30-2019 Precautionary procedure [facility] Work Phone: Start: 03-30-2019 Vital signs measurements [facility] Work Phone: Start: 03-30-2019 [facility] Work Phone: Start: 03-22-2019 [facility] Work Phone: Start: 03-09-2019 Disease process or c ondition education [facility] Work Phone: Start: 03-09-2019 Medication administr ation assessment [facility] Work Phone: Start: 03-09-2019 Medication monitoring [facility] Work Phone: Start: 03-09-2019 Patient education [facility] Work Phone: Start: 03-09-2019 Precautionary procedure [facility] Work Phone: Start: 03-09-2019 Vital signs measurements [facility] Work Phone: Start: 03-09-2019 [facility] Work Phone: Start: 03-02-2019 [facility] Work Phone: Start: 02-16-2019 Disease process or c ondition education [facility] Work Phone: Start: 02-16-2019 Medication administr ation assessment [facility] Work Phone: Start: 02-16-2019 Medication monitoring [facility] Work Phone: Start: 02-16-2019 Patient education [facility] Work Phone: Start: 02-16-2019 Precautionary procedure [facility] Work Phone: Start: 02-16-2019 Vital signs measurements [facility] Work Phone: Start: 02-16-2019 [facility] Work Phone: Start: 02-14-2019 [facility] Work Phone: NM Whole body Bone Views [facility] Work Phone: Patient referral [facility] Work Phone: Troponin T.cardiac [ Mass/volume] in Serum or Plasma by High sensitivity method [facility] Payers Date Payer Category Payer Self-pay [id number] 2015 Unknown [id number] Formerly [facility] [id number] 2015 Medicare [id number] Unknown [id number] Unknown [id number] [id number] [id number] Unknown [id number] [id number] [id number] Unknown [id number] [id number] [id number] Unknown [id number] 2.16.8 [id number] Unknown [id number] 2.16.8 [id number] Unknown [id number] [id number] [id number] Social History Date Type Detail Facility Start: 01-14-[address] [facility] Unknown if ever smoked [facility] Start: 11-27-2015 None [facility] Start: 11-28-2015 Alone [facility] Start: 11-27-2015 Non-smoker [facility] Start: 1950 Sex Assigned At Male [facility] Start: 05-09-2025 [facility] Medical Equipment Procedure Code Equipment Code Equipment Origin al Text Equipment Identifier Dates Insertion, vascular access port PORT,6FR POWER PORT FDA Start: 02-10-2019 Insertion, vascular access port PORT,6FR POWER PORT FDA Start: 02-10-2019 Insertion, vascular access port PORT,6FR POWER PORT FDA Start: 02-10-2019 Insertion, vascular access port PORT,6FR POWER PORT FDA Start: 02-10-2019 Insertion, vascular access port PORT,6FR POWER PORT FDA Start: 02-10-2019 Insertion, vascular access port PORT,6FR POWER PORT FDA Start: 02-10-2019 Mental Status Date Assessment Result Facility 05-09-2025 Cognitive function Voice/Name [facility] Work Phone: 06-01-2019 Cognitive function Mood Descript ion Appropriate;Calm;Relaxed [facility] Work Phone: Discharge summary 05-09-2025 Note Date & Type Note Facility 05-09-2025 Discharge summary [facility] Discharge summary 05-09-2025 Note Date & Type Note Facility 05-09-2025 Discharge summary Note Date/Time May 09, 2025 2:20pm [facility] Medical Records Department [address] [place] [address] Emergency Department Summary 05/09/25 MR#: [id number] Acct: [id number] Name: LISSET FARMER Rep #:[id number] : 1950 75 From: Steven Hurst DO PCP: Dr. Lisset Barrera, DO Status:REG ER Location: ED HPI History of Present Illness Chief Complaint: Palpitations Narrative Narrative: Patient is a 75-year-old male with a past medical history of prostate cancer, pancytopenia, KATHY, hypertension who presented to the emergency department and hestates that he has no idea why he is here. He states that he was following up with a lung doctor today and has no idea why he was following up with them either. Patient states that he has Apsley no complaints at this point in time. PFSH PFS Medical History Prostate cancer Elevated PSA Kidney stones Hematuria Pancytopenia High risk medication use KATHY (obstructive sleep apnea) Fatty liver disease Agranulocytosis secondary to cancer chemotherapy Drug induced neutropenia Hairy cell leukemia Obesity Hypertension Sleep apnea Home Medications ?Medication ?Instructions ?Recorded ?Last Taken ?Type lisinopril 40 mg tablet 40 mg PO DAILY bp 12/09/15 0 05/09/25 History calcium 250 mg (as 1 ea PO BID 10/29/20 5 History carbonate)-vitamin D3 3.125 mcg (125 unit) tablet metoprolol tartrate 50 mg tablet 50 mg PO DAILY 05/09/25 History amlodipine 10 mg tablet 10 mg PO QDAY 05/09/2505/09 History apixaban 5 mg tablet (Eliquis) 5 mg PO BID 30 days #60 tabs 05/09/25 Unknown Rx Allergy/AdvReac Type Severity Reaction Status Date / Time sulfamethoxazole (From AdvReac Intermediate Rash Verified 05/09/25 09:01 Bactrim) trimethoprim (From Bactrim) AdvReac Intermediate Rash Verified 05/09/25 09:01 Family History Mother Hypertension CVA (cerebral vascular accident) Breast cancer Sister CVA (cerebral vascular accident) Surgical History History of prostate biopsy Basal cell carcinoma of nose Social History household members: none Smoking Status: Never smoker second hand exposure: No alcohol intake: never substance use type: does not use ROS ROS ED ROS Narrative Constitutional: Denies fevers, chills, headaches, lightness, dizziness Eyes: Denies change in vision double vision blurry vision Cardiovascular: Denies chest pain or palpitations Respiratory: Denies coughing wheezing shortness of breath Abdomen: Denies abdominal pain nausea vomiting diarrhea : Denies any urinary symptoms Neurological: Denies any numbness, wheeze, tingling Musculoskeletal: Denies back pain Skin: Denies any rashes or lesions EXAM Physical Exam Narrative Exam Narrative: General: Patient lying in bed rest comfortably did not appear to be in acute distress Head: Atraumatic, normocephalic Eyes: PERRL bilaterally, EOMI of light, no conjunctival injection noted Neck: Soft, supple, trachea midline Cardiovascular: Patient had an irregular irregular rhythm with a normal rate no murmurs gallops or rubs noted Respiratory: Clear to auscultation bilaterally Abdomen: No tenderness to palpation Extremities: +5/5 strength noted in bilateral upper and lower extremities, radial pulses +2/4 in the bilateral extremities, no pedal edema on exam Neurological: Patient follow commands knew that he was at [facility] year is 2024 Skin: Warm, dry, tact no rashes or lesions noted Const Vital Signs: 05/09/25 09:52 05/09/25 10:15 05/09/25 10:25 Temperature 98.6 F Temperature Source Oral Pulse Rate 88 Respiratory Rate 15 Respiratory Effort Normal Non-Labored Blood Pressure 125/101 H Blood Pressure Mean 109 Pulse Ox 100 95 Oxygen Delivery Method Room Air Room Air 05/09/25 11:00 05/09/25 12:09 Temperature Temperature Source Pulse Rate 100 62 Respiratory Rate 21 H 22 H Respiratory Effort Blood Pressure 150/108 H 127/87 H Blood Pressure Mean 122 99 Pulse Ox 94 98 Oxygen Delivery Method MDM MDM MDM Narrative Medical decision making narrative: Patient is a 75-year-old male who presented to the emergency department the chief complaint of being sent in by his pulmonology provider. On the differential diagnosis includes but not limited to ACS, new onset A-fib, atrial flutter, electrolyte abnormality. Once workup is obtained and reviewed he will be reevaluated. Nurse practitioner called from pulmonology office and discussed with them and she noted that the patient had new onset atrial fibrillation. She states that she called his family physician's office and they could not get him into be evaluated today therefore they advised to send him to the emergency department to be evaluated. They state that they had no records of him having a history ofatrial fibrillation. Patient CBC reviewed showed no evidence of cytosis white blood count 6.4, he was12.5, platelet count was noted be 186. Patient's sodium normal 141, potassium of 4.4, creatinine was 1.26. Patient's troponin was 12 with a delta troponin obtained at 10. Patient EKG showed atrial fibrillation with a controlled rate of 79 bpm. Patient's TSH normal at 0.82, free T4 and T3 were normal at 1.10 and2.2 respectively. Patient's chest x-ray reviewed by myself and by radiology showed no acute cardiopulmonary processes. Called and discussed case with on-call executive cyber leader Dr. Echavarria who states that the patient to be placed on Eliquis and follow-up in the outpatient setting. I discussed this plan with the patient he is agreeable this plan he would like to go home at this point time. Patient has been rate controlled the entire timeas well. He was advised if he falls and hits his head while on Eliquis he needsto go to an emergency department immediately for a head CT. He is advised to return with worsening symptoms or concerns. He is agreeable to plan all question concerns answered he is discharged home in stable condition. Lab Data Labs: Laboratory Results - last 24 hr 05/09/25 05/09/25 05/09/25 10:23 10:40 12:33 WBC 6.4 RBC 4.32 L Hgb 12.5 L Hct 38.7 L MCV 89.6 MCH 28.9 MCHC 32.3 RDW Std Deviation 47.8 H RDW Coeff of Kristen 14.6 Plt Count 186 MPV 10.6 Immature Gran % (Auto) 0.300 Neut % (Auto) 71.8 H Lymph % (Auto) 16.0 L Huron % (Auto) 8.2 Eos % (Auto) 2.8 Baso % (Auto) 0.9 Absolute Neuts (auto) 4.6 Absolute Lymphs (auto) 1.02 Nucleated RBC % 0 Sodium 141 Potassium 4.4 Chloride 105 Carbon Dioxide 26.9 Anion Gap 9 BUN 19 Creatinine 1.26 H Estim Creat Clear Calc 63.12 Est GFR (MDRD) Non-Af 59 L BUN/Creatinine Ratio 14.8 Glucose 110 H Calcium 9.5 Troponin T High Sens 12 Troponin T Hi Sens 2 Hr 10 TSH 0.829 Free T4 1.10 Free T3 pg/dL 2.2 Radiography Diagnostic Testing: Clinical Impression(s) from Imaging Studies Chest X-Ray 05/09/25 10:29 IMPRESSION: Lungs are hypoinflated. Minimal bibasilar atelectasis is seen. No evidence of pulmonary edema. No pleural effusion or pneumothorax is noted. The cardiomediastinal silhouette is remarkable for a partially calcified and tortuous aorta. No evidence of cardiomegaly. No acute osseous process is seen. Reading Location: [place] [address] Discharge Plan Triage Chief Complaint: Palpitations ED Provider: Steven Hurst Dx/Rx/DC Orders Clinical Impression: Atrial fibrillation Prescriptions: New Eliquis 5 mg tablet 5 mg PO BID 30 Days Qty: 60 0RF No Action metoprolol tartrate 50 mg tablet 50 mg PO DAILY amlodipine 10 mg tablet 10 mg PO QDAY lisinopril 40 MG tablet 40 mg PO DAILY calcium carbonate-vitamin D3 1 EACH tablet 1 ea PO BID Primary Care Provider: Lisset Barrera Referrals: Lisset Barrera DO [Primary Care Provider] - Saud Echavarria MD [Med Staff - Active Staff] - Activity Restrictions/Additional Instructions: Take the Eliquis that you are prescribed as instructed. If you fall and hit your head you need to immediately return to a emergency department for a head CTas you could have a head bleed. Follow-up with the executive cyber leader that you referred to. Return with worsening symptoms or concerns Print Language: Micronesian Disposition Disposition: Home, Self Care What to do if you have Problems For any increased pain, shortness of breath, bleeding, nausea or vomiting, chestpain, or any unexpected problems, contact your Primary Care Provider. Call [employer] [facility] ([phone]) or report to the closest Emergency Room. Call 911 if necessary. 05/09/25 1420 <Electronically signed by Steven Hurst DO> Cosigner Signature (if applicable): CC: Dr. Lisset Barrera DO ~ Signed [facility] Work Phone: Radiology Diagnostic study note 05-09-2025 Note Date & Type Note Facility 05-09-2025 Radiology Diagnostic study note [facility] Imaging Services [address] [place], [place] [address] Chest 1 View (Portable) MR#: [id number] Acct: [id number] Name: LISSET FARMER Rep #: [id number] : 1950 M 75 From: Jovon Angela MD PCP: Dr. Lisset Barrera DO Status: PRE ER Study:Chest 1 View (Portable) Date of Exam: 05/09/25 Exam# [id number] Ordering Dr: Cody Hurst DO PROCEDURE: CHEST 1 VIEW (PORTABLE) 05/09/2025 REASON FOR EXAM: CHEST PAIN TECHNIQUE: Frontal view of the chest. COMPARISON: Chest x-ray of 02/10/2019. RAD/Chest 1 View (Portable) IMPRESSION: Lungs are hypoinflated. Minimal bibasilar atelectasis is seen. No evidence of pulmonary edema. No pleural effusion or pneumothorax is noted. The cardiomediastinal silhouette is remarkable for a partially calcified and tortuous aorta. No evidence of cardiomegaly. No acute osseous process is seen. Reading Location: [place] [address] CC: Dr. Lisset Barrera DO; Dr. Steven Hurst DO ~ Tile Layer Drainage: Signed [facility] Evaluation note 05-09-2025 Note Date & Type Note Facility 05-09-2025 Evaluation note Diagnosis Onset Date Resolution Irregular heart rhythm acute Ju 2024 8:50am Obesity chronic May 09 8:50am KATHY (obstructive sleep apnea) chronic May 09, 2025 8:50am [facility] Work Phone: Evaluation note Note Date & Type Note Facility Evaluation note Diagnosis Onset Date Obesity chronic KATHY (obstructive sleep apnea) chronic Chemotherapy management, encounter for acute Elevated PSA acute Encounter for education acut e History of prostate biopsy a cute Hairy cell leukemia chronic Prostate cancer chronic 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 [facility] Work Phone: Evaluation note Note Date & Type Note Facility Evaluation note Diagnosis Onset Date 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 Chemotherapy management, encounter for acute Elevated PSA acute Encounter for education acut e History of prostate biopsy a cute Hairy cell leukemia chronic Prostate cancer chronic 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 lymph node chronic Prostate cancer metastatic to bone [facility] Work Phone: Evaluation note Note Date & Type Note Facility Evaluation note Diagnosis Onset Date 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 Chemotherapy management, encounter for acute Elevated PSA acute Encounter for education acut e History of prostate biopsy a cute Hairy cell leukemia chronic Prostate cancer chronic 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 Hairy cell leukemia chronic Malignant neoplasm of prosta te metastatic to intra-abdominal lymph node chronic Prostate cancer metastatic to bone [facility] [place] Work Phone: Evaluation note Note Date & Type Note Facility Evaluation note Diagnosis Onset Date Obesity chronic KATHY (obstructive sleep apnea) [facility] [place] Work Phone: Evaluation note Note Date & Type Note Facility Evaluation note Diagnosis Onset Date Resolution Irregular heart rhythm acute Ju ne 2024 8:50am [facility] Work Phone: Reason for referral (narrative) Note Date & Type Note Facility Reason for referral (narrative) No reason for referral information available [facility] Work Phone: Chief Complaint and Reason for Visit Chief Complaint CC RESULTS TO DR MARI Devries 1 Y FU ONC/HEM PROSTATE CANCER 6MO LABS REVIEW CT Reason for Visit Obesity KATHY (obstructive sleep apnea) Chemotherapy management, encounter for Elevated PSA Encounter for education History of prostate biopsy Hairy cell leukemia Prostate cancer 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 Hairy cell leukemia Malignant neoplasm of prostate metastatic to intra-abdominal lymph node Prostate cancer metastatic to bone Chief Complaint PROSTATE CANCER 6MO LABS REVIEW CT ONC/HEM 12WKS LABS PRIOR PROSTATE CANCER Reason for Visit Hairy cell leukemia Malignant neoplasm of prostate metastatic to intra-abdominal lymph node Prostate cancer metastatic to bone Chemotherapy management, encounter for Elevated PSA Encounter for education History of prostate biopsy Hairy cell leukemia Prostate cancer 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 Hairy cell leukemia Malignant neoplasm of prostate metastatic to intra-abdominal lymph node Prostate cancer metastatic to bone Chief Complaint 6MO LABS REVIEW CT ONC/HEM 12WKS LABS PRIOR PROSTATE CANCER NO LABS REVIEW CT PROSTATE CANCER, RISING PSA 2WKS NO LABS REVIEW BONE SCAN Reason for Visit Hairy cell leukemia Malignant neoplasm of prostate metastatic to intra-abdominal lymph node Prostate cancer metastatic to bone Chemotherapy management, encounter for Elevated PSA Encounter for education History of prostate biopsy Hairy cell leukemia Prostate cancer 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 Hairy cell leukemia Malignant neoplasm of prostate metastatic to intra-abdominal lymph node Prostate cancer metastatic to bone Hairy cell leukemia Malignant neoplasm of prostate metastatic to intra-abdominal lymph node Prostate cancer metastatic to bone Hairy cell leukemia Malignant neoplasm of prostate metastatic to intra-abdominal lymph node Prostate cancer metastatic to bone Chief Complaint 1 Y FU LABS Reason for Visit Obesity KATHY (obstructive sleep apnea) Chief Complaint Admit Date 1 Y FU May 09, 2025 8:50 am Reason for Visit Admit Date Irregular heart rhythm May 09, 2025 8 :50am Chief Complaint Admit Date 1 Y FU May 09, 2025 8:50 am palpitations May 09, 2025 9:51 am Reason for Visit Admit Date Irregular heart rhythm May 09, 2025 8 :50am Obesity May 09, 2025 8:50 am KATHY (obstructive sleep apnea) May 09, 2025 8:50am Family History Relationship Condition Age at Onset Recorded Date/T harmony mother Hypertension Unknown Cerebrovascular accident (CVA) Unknown Malignant neoplasm of breast Unknown sister Cerebrovascular accident (CVA) Unknown Advance Directives Advance Directive Response Recorded Date/ Time Advance Directives No June 01 12:43pm Living Will No June 01, 2019 12:43pm Power of Clinic Physician No June 01 9 12:43pm Advance Directive Response Recorded Date/ Time Advance Directives on File No June 01, 2019 12:43pm Advance Directives No June 01 12:43pm Living Will No June 01, 2019 12:43pm Power of Clinic Physician No June 01 9 12:43pm Advance Directive Response Recorded Date/ Time Living Will No June 01, 2019 12:43pm Do you have a Healthcare Power of Clinic Physician? No June 01, 2019 12:43pm Advance Directives No June 01 12:43pm Advance Directive Response Recorded Date/ Time Living Will No June 01, 2019 12:43pm Do you have a Healthcare Power of Clinic Physician? No June 01, 2019 12:43pm Do you have a Healthcare Power of Clinic Physician? No May 09, 2025 10:16am Advance Directives No June 01 12:43pm Summary Purpose Additional Source Comments Goals (unrecognized section and content) Goals may be documented in a n alternate sectionGoals may be documented in an alternate sectionGoals may be documented in an alternate sectionGoals may be documented in an alternate sectionGoals may be documented in an alternate sectionGoals may be documented in an alternate section Care Teams (unrecognized sec tion and content) Team Status: Active Member Role Status Dates Dr. Lisset Barrera DO Family Provider Active Dr. Lisset Barrera DO Primary Care Provider Active Team Status: Inactive Member Role Status Dates Dr. Lisset Barrera DO Primary Care Provider, Referrin g Provider Active Dr. Chance Montemayor MD Attending Provider Active Team Status: Inactive Member Role Status Dates Dr. Lisset Barrera DO Primary Care Provider Active Pastora Hunt SUPERVISOR PHOS[employer]ATIC F[employer]ILIZER-C Attending Provider, Referrin g Provider Active Team Status: Active Member Role Status Dates Dr. Lisset Barrera DO Primary Care Provider Active Team Status: Inactive Member Role Status Dates Dr. Lisset Barrera DO Primary Care Provider Active Start: March 06, 2025 End: March 06, 2025 Dr. Regan Guzman MD Attending Provider Active Start: March 06, 2025 End: March 06, 2025 Dr. Regan Guzman MD Referring Provider Active Start: March 06, 2025 End: March 06, 2025 Team Status: Inactive Member Role Status Dates Dr. Lisset Barrera DO Primary Care Provider Active Start: May 09, 2025 End: May 09, 2025 Dr. Lisset Barrera DO Referring Provider Active Start: May 09, 2025 End: May 09, 2025 Janessa Zamora SUPERVISOR PHOSPHATIC FERTILIZER, SUPERVISOR PHOSPHATIC FERTILIZER-C Attending Provider Active Start: May 09, 2025 End: May 09, 2025 Team Status: Inactive Member Role Status Dates Dr. Lisset Barrera DO Primary Care Provider Active Start: May 09, 2025 End: May 09, 2025 Dr. Steven Hurst DO Emergency Provider Active Start: May 09, 2025 End: May 09, 2025 (unrecognized sect ion and content) No Status Records Found INFORMATION SOURCE (unrecogn ized section and content) DATE CREATED AUTHOR 03/10/2025 [facility] FOR RECORDS PERTAINING TO PATIENTS WHO ARE OR HAVE BEEN ENROLLED IN A CHEMICAL DEPENDENCY/SUBSTANCEABUSE PROGRAM, SOME INFORMATION MAY BE OMITTED. This clinical summary was aggregated from multiple sources. Caution should be exercised in using it in the provision of clinical care. This summary normalizes information from multiple sources, and as a consequence, information in this document may materially change the coding, format and clinical context of patient data. In addition, data may be omitted in some cases. CLINICAL DECISIONS SHOULD BE BASED ON THE PRIMARY CLINICAL RECORDS. [facility]. provides no warranty or guarantee of the accuracy or completeness of information in this document.
== END 2025-05-09 14:40 | disposition home or self-care (01) ==
PROVIDERS: Emergency Provider Emergency Medicine; PCP Family Medicine; Visit Provider Emergency Medicine
DX: I48.91 Unspecified atrial fibrillation (principal); I10 Essential (primary) hypertension; Z79.01 Long term (current) use of anticoagulants; Z79.899 Other long term (current) drug therapy
CPT/HCPCS: 71045; 80048; 84439; 84443; 84481; 84484; 85025; 93005; 99284; A4216

== ENCOUNTER 2025-05-22 17:03 | Inpatient (IN) | payer MEDICARE, OTHER, SELFPAY ==
[2019-08-22 13:32] VITALS: BMI 33.8
[2025-05-22] VITALS (14 sets, daily range): BP systolic 102–155; BP diastolic 63–126; PULSE 96–147; RESP 15–24; TEMP 36.6–37.3; O2SAT 91–98; BMI 32.1; BMI 31.6
--- NOTE | 2025-05-22 17:42 | EKG12_ITS ---
Test Reason : Blood Pressure : */* mmHG Vent. Rate : 133 BPM Atrial Rate : * BPM P-R Int : * ms QRS Dur : 94 ms QT Int : 338 ms P-R-T Axes : * -15 167 degrees QTcB Int : 503 ms Atrial fibrillation with rapid ventricular response Inferior infarct , age undetermined Abnormal ECG Confirmed by CHARY CH, ZAKIYA ([id number]), makeup editor PEG AUGUSTIN ([id number]) on 05/24/2025 6:35:47 AM Referred By: Confirmed By: ZAKIYA DIEZ MD
--- NOTE | 2025-05-22 17:44 | EX.ED.DYSGE1 ---
HPI History of Present Illness Chief Complaint: Mental Status Change Detail of Chief Complaint: Altered mental status. Informant: patient and family (Grandson and another family member in the room.) Onset/Context/Timing Onset: Today Timing: Continuous Current Severity: Moderate Maximum Severity: Moderate Narrative Narrative: 75-year-old male history of prostate cancer, hairy cell leukemia, A-fib. On lisinopril metoprolol. Today he was found in his car without any pants on at home. He was found by the police who were concerned this is a medical problem brought him to the hospital. Patient denies recent illness. He denies headache. He denies blood thinners. He denies nausea, vomiting or diarrhea. He denies headache or head trauma. He denies fever or dysuria. He does seem confused. Prior similar symptoms: No Recent Illness/Hospitalization: No PFSH PFSH Medical History Prostate cancer Elevated PSA Kidney stones Hematuria Pancytopenia High risk medication use KATHY (obstructive sleep apnea) Fatty liver disease Agranulocytosis secondary to cancer chemotherapy Drug induced neutropenia Hairy cell leukemia Obesity Hypertension Sleep apnea Home Medications ?Medication ?Instructions ?Recorded ?Last Taken ?Type lisinopril 40 mg tablet 40 mg PO DAILY bp 12/09/15 05/09/25 History calcium 250 mg (as 1 ea PO BID 10/29/20 05/09/25 History carbonate)-vitamin D3 3.125 mcg (125 unit) tablet metoprolol tartrate 50 mg tablet 50 mg PO DAILY 04/26/24 05/09/25 History amlodipine 10 mg tablet 10 mg PO QDAY 05/09/25 05/09/25 History apixaban 5 mg tablet (Eliquis) 5 mg PO BID 30 days #60 tabs 05/09/25 Unknown Rx Allergy/AdvReac Type Severity Reaction Status Date / Time sulfamethoxazole (From AdvReac Intermediate Rash Verified 05/22/25 17:07 Bactrim) trimethoprim (From Bactrim) AdvReac Intermediate Rash Verified 05/22/25 17:07 Family History Mother Hypertension CVA (cerebral vascular accident) Breast cancer Sister CVA (cerebral vascular accident) Surgical History History of prostate biopsy Basal cell carcinoma of nose Social History household members: none Smoking Status: Never smoker second hand exposure: No alcohol intake: never substance use type: does not use ROS ROS ED ROS Narrative Denies recent illness. Review of Systems ROS Unobtainable: due to mental status Constitutional Constitutional ED: Denies chills or fever(s) Eyes Eyes: Denies blurry vision ENT ENT ED: Denies ear pain Cardiovascular Cardiovascular: Denies chest pain Respiratory/Chest Respiratory/Chest: Denies cough Gastrointestinal Gastrointestinal: Denies abdominal pain Genitourinary Genitourinary ED: Denies dysuria Musculoskeletal Musculoskeletal: Denies arthralgias Integumentary Denies abscess Neurologic Neurologic: Denies headache(s) Psychiatric Psychiatric: Denies anxiety Endocrine Endocrinology: Denies cold intolerance Hematologic/Lymphatic Hematologic/Lymphatic: Reports none Allergic/Immunologic Allergic/Immunologic ED: Denies mouth swelling, tongue swelling or urticaria EXAM Physical Exam Narrative Exam Narrative: Seen via male sitting upright in bed. Vital signs show A-fib RVR rate of 130. H EENT exam pupils round react light. Extra motions are intact. No facial droop. Normal speech. No signs of trauma to his face or head. No hematoma. Neck nontender. No lymphadenopathy. Back nontender mild abrasion left lower back but he denies how that happened. Lungs clear to auscultation bilaterally. Heart A-fib RVR rate about 130 no murmur. Chest wall ribs nontender. Abdomen soft nontender. Moving all 4 extremities. 1-2+ pitting edema both lower extremities. Normal blowing weasand strength. Normal dorsi plantarflexion. No drift. Neurologically he is awake. He is alert. He is answering questions. He knew the president he did not know the year or the month. There is no slurred speech. He has normal motor strength. But he does seem confused. Const Vital Signs: 05/22/25 17:03 05/22/25 17:42 05/22/25 18:54 Temperature 98.6 F Temperature Source Oral Pulse Rate 109 H 138 H 147 H Respiratory Rate 20 H 22 H 22 H Blood Pressure 134/63 H 118/97 H Blood Pressure Mean 86 104 Pulse Ox 96 98 94 Oxygen Delivery Method Room Air Room Air Room Air Positive well developed; Negative for cachectic, contractures or unkempt General Appearance ED: well developed; Negative for unkempt, cachectic, contractures, cyanotic, diaphoretic, NAD or pallor Nutritional Appearance: Negative for cachectic HEENT Reports moist mucous membranes Eyes PERRL and EOMs intact bilaterally Neck no lymphadenopathy, supple and no JVD Chest Wall inspection of chest normal and palpation of chest normal Resp normal respiratory effort and clear to auscultation bilaterally Cardio Rate: tachycardic Rhythm: abnormal rhythm irregularly irregular GI normal to inspection, nondistended, normoactive bowel sounds, non-tender, non-distended and no masses Palpation: soft; Negative for tender or guarding Back/Spine no CVA tenderness General Back: Negative for CVA tenderness Cervical Spine: Negative for cervical spine tenderness Thoracic Spine / Upper Back: Negative for thoracic spinal tenderness or paraspinal muscle tenderness Lumbar Spine / Lower Back: Negative for lumbar spinal tenderness Extremity Negative for normal to inspection Extremity Narrative: 1-2+ pitting edema both lower extremities. Nontender. Normal strength. General Extremety ED: Yes edema General Extremity: edema Neuro No oriented x3 and CN's II-XII intact bilaterally Neuro Narrative: Knows the president. Does not know the month or year. Seems confused. No focal motor deficits. Sensorium / Orientation: alert and orientation impaired Motor Exam: strength 5/5 throughout Psych mental status grossly normal Appearance: Negative for unkempt Skin no rashes or lesions noted and No no wounds Skin Narrative: Abrasion left lower back. General Skin Exam: Negative for jaundice or pallor Lesions: No lesion noted Rashes: No rashes noted Trauma: Negative for abrasion Wounds: Negative for wounds noted MDM MDM MDM Narrative Medical decision making narrative: 75-year-old male with mental status change. Found at home in his car without his pants on. He is confused to month and year. Patient will get an altered level of consciousness workup. He is in A-fib RVR received Cardizem. He has peripheral edema in his lower extremities. I will do a CAT scan of his head. This could also be an infectious etiology. Currently he is not hypoxic his pulse ox is 96% on room air. Exam patient is doing well at 7:40 PM. He still seems somewhat confused. I spoke to his son and another family member at bedside. He has A-fib RVR was given Cardizem his heart rate still 140 he will be started on Cardizem drip. He was written for [employer] the other day with the pharmacy did not have it ready so he is not on that yet. None of his labs really show why he should have an altered mental status. There is no obvious signs of infection currently. There is no toxidrome. He does have some CHF from his A-fib RVR. But his CT of his brain and his chest x-ray look good. I will speak to the hospitalist to admit him for altered level consciousness and A-fib RVR. History & Record Review Discussion w/independent historian: Patient and Family Additional record(s) reviewed:: Prior inpatient record, Prior outpatient record, Prior ED visit and Prior labs Lab Data Attestation: I reviewed the patient's lab results. Lab results narrative: CBC shows a white count of 6.6. H&H 13 and 39. Platelets 204. PT/INR 15 and 1.2. Chemistries show sodium 143. Gap 12. BUN and creatinine 18 and 1.26. Glucose 118. Liver enzymes unremarkable. BNP is elevated at 4303. Urinalysis is negative. Alcohol and urine tox are negative. CAT scan of the brain shows chronic changes. Labs: Laboratory Results - last 24 hr 05/22/25 05/22/25 17:30 18:37 WBC 6.6 RBC 4.47 L Hgb 13.0 Hct 39.7 L MCV 88.8 MCH 29.1 MCHC 32.7 RDW Std Deviation 47.7 H RDW Coeff of Kristen 14.6 Plt Count 204 MPV 11.5 Immature Gran % (Auto) 0.300 Neut % (Auto) 78.5 H Lymph % (Auto) 12.8 L [place] % (Auto) 7.3 Eos % (Auto) 0.6 Baso % (Auto) 0.5 Absolute Neuts (auto) 5.2 Absolute Lymphs (auto) 0.85 Nucleated RBC % 0 PT 15.3 H INR 1.2 Sodium 143 Potassium 3.8 Chloride 107 Carbon Dioxide 23.1 Anion Gap 12 BUN 18 Creatinine 1.26 H Estim Creat Clear Calc 62.30 Est GFR (MDRD) Non-Af 59 L BUN/Creatinine Ratio 14.2 Glucose 118 H Calcium 9.6 Total Bilirubin 0.67 AST 18 ALT 12 Alkaline Phosphatase 77 Troponin T High Sens 14 D NT pro BNP II 4303 H Total Protein 7.8 Albumin 4.2 Globulin 3.5 Albumin/Globulin Ratio 1.2 Urine Color Yellow Urine Clarity Clear Urine pH 7.0 Ur Specific [place] 1.010 Urine Protein 15 H Urine Glucose (UA) Normal Urine Ketones 5 H Urine Occult Blood 10 H Urine Nitrite Negative Urine Bilirubin Negative Urine Urobilinogen Normal Ur Leukocyte Esterase Negative Urine RBC 0-5 SEEN Urine WBC 0-5 SEEN Ur Squamous Epith Cells 0 SEEN Urine Bacteria 0 SEEN Urine Mucus 0 SEEN Urine Opiates Screen NEGATIVE U Buprenorphine Qual NEGATIVE Ur Oxycodone Screen NEGATIVE Urine Methadone Screen NEGATIVE Urine Fentanyl Screen NEGATIVE Ur Barbiturates Screen NEGATIVE Ur Phencyclidine Scrn NEGATIVE Ur Amphetamines Screen NEGATIVE U Benzodiazepines Scrn NEGATIVE Urine Cocaine Screen NEGATIVE U Cannabinoids Screen NEGATIVE Ethyl Alcohol < 10.1 Radiography Chest X-Ray - ED: 2 View, Read by ED Physician, Normal, Lungs, Mediastinum, Bony Structures, No Acute Disease and Chronic Changes Diagnostic Testing: Clinical Impression(s) from Imaging Studies Brain CT 05/22/25 18:13 IMPRESSION: 1. No acute intracranial abnormality. 2. Mild-moderate volume loss and chronic microangiopathic changes. Reading Location: [facility] Chest X-Ray 05/22/25 18:15 IMPRESSION: Cardiomegaly. No evidence of acute pulmonary disease. No pleural effusions. Reading Location: [facility] Chest x-ray, 2 views, AP and lateral, interpreted by myself shows normal cardiac silhouette. Normal mediastinum. No pneumonia. Chronic changes. No acute process. Rhythm Strip Rhythm Strip: A-fib Rate: 133 Ectopy: None EKG Initial EKG: Attestation: I personally reviewed and interpreted this EKG as follows: Interpretation: No Acute Injury Pattern and Atrial Fibrillation Comments: A-fib with RVR rate in 130s. No acute signs of AK or ischemia. Critical Care Time Critical Care Time: Yes Critical care time (excluding procedures): 30-74 minutes, Including time spent:, Discussing w/Patient &/or Family/Board Mill Supervisor, Discussing w/Consultants, Arranging Admission or Transfer, Performing Direct Patient Care at Bedside and - (35 minutes.) Discharge Plan Dx/Rx/DC Orders Clinical Impression: Altered level of consciousness, Atrial fibrillation with rapid ventricular response Disposition Disposition: Acute Care Hospital [facility]
--- NOTE | 2025-05-22 18:13 | CT_ITS ---
PROCEDURE: BRAIN/HEAD WITHOUT CONTRAST 05/22/2025 REASON FOR EXAM: ALOC TECHNIQUE: BRAIN/HEAD WITHOUT CONTRAST Coronal and Sagittal reconstruction series were provided. One or more dose reduction techniques were used (e.g., Automated exposure control, adjustment of the mA and/or kV according to patient size, use of iterative reconstruction technique. RADIATION DOSE SUMMARY: CTDlvol: 44.99 mGy DLP: 829.85 mGycm COMPARISON: None available. FINDINGS: No acute intracranial hemorrhage, extra-axial collection, mass effect or evidence of acute infarct. Mild-moderate generalized brain parenchymal volume loss, and chronic microangiopathic changes. Atherosclerotic calcification of the intracranial vasculature, with a somewhat dolichoectatic appearance of the basilar artery and proximal MCAs. Orbital contents are unremarkable. Intact skull base and calvarium. Clear paranasal sinuses and mastoid air cells. CT/Brain/Head without Contrast IMPRESSION: 1. No acute intracranial abnormality. 2. Mild-moderate volume loss and chronic microangiopathic changes. Reading Location: [id number]
--- NOTE | 2025-05-22 18:15 | RAD_ITS ---
PROCEDURE: CHEST PA AND LATERAL 05/22/2025 REASON FOR EXAM: A-FIB AND EDEMA TECHNIQUE: CHEST PA AND LATERAL COMPARISON: 05/09/2025 FINDINGS: Lungs/Pleura: No focal consolidation or findings of pulmonary edema. No pneumothorax or pleural effusions. Heart/Mediastinum: Enlarged cardiac silhouette. Tortuous and calcified aorta. Bones/Soft tissues: Multilevel degenerative changes of the spine. Rounded calcific density in the left upper abdomen corresponding to a calcified splenic granuloma. RAD/Chest PA and Lateral IMPRESSION: Cardiomegaly. No evidence of acute pulmonary disease. No pleural effusions. Reading Location: [id number]
[2025-05-22 18:31] LABS: Hematocrit 39.7 % (40-54); Hemoglobin 13.0 g/dL (13.0-16.5); Immature Granulocytes Count 0.020 X10^3/uL (0.0-0.0); Mean Corp Hgb Conc 32.7 g/dL (32-36); Mean Corpuscular Volume 88.8 fL (80-94); Mean Platelet Vol. 11.5 fl (6.2-12.0); NRBC Flagged by Analyzer 0 % (0-5); Platelet Count 204 K/mm3 (150-450); RBC Distribution Width CV 14.6 % (11.6-14.6); RBC Distribution Width SD 47.7 fl (35.1-43.9); Red Blood Count 4.47 M/mm3 (4.6-6.2); White Blood Count 6.6 K/mm3 (4.4-11.0)
[2025-05-22 18:37] LABS: Prothrombin Time (Protime)PT. 15.3 SECONDS (11.7-14.9)
[2025-05-22 18:45] LABS: Mucous, Urine 0 SEEN /hpf (<or=2+); Squamous Epithelial Cells - UA 0 SEEN /hpf (0-5)
--- NOTE | 2025-05-22 18:48 | ED.RN ---
pt found standing up in room and trying to take gown and monitor off.
[2025-05-22 19:02] LABS: Barbiturate Urine NEGATIVE (< 200 ng/mL); Benzodiazepine Urine NEGATIVE (< 200 ng/mL); PCP Urine NEGATIVE (< 25 ng/mL); THC Urine NEGATIVE (< 50 ng/mL)
[2025-05-22 19:03] LABS: AST(SGOT) 18 U/L (<=37); Alanine Aminotransfer ALT/SGPT 12 U/L (<=46); Albumin, Serum 4.2 g/dL (3.4-4.8); Alcohol, Blood (Medical)-Serum < 10.1 mg/dL (<=10.0); Alkaline Phosphatase 77 U/L (40-129); Anion Gap 12 (5-15); BUN 18 mg/dL (4-19); BUN/Creat Ratio 14.2 RATIO (10-20); Calcium,Total 9.6 mg/dL (7.6-11.0); Carbon Dioxide 23.1 mmol/L (21.0-32.0); Chloride 107 mmol/L (98-108); Estimated Creatinine Clearance 62.30 ml/min (50-250); Globulin 3.5 g/dL (2.2-4.2); Glucose 118 mg/dL (70-99); Potassium 3.8 mmol/L (3.3-5.1); Pro- Brain NATRIURETIC PEPTIDE 4303 pg/mL (<=1800)
[2025-05-22 19:15] LABS: Color, Urine Yellow (Yellow); Glucose, Dipstick Normal (Normal); Ketone-Dipstick 5 mg/dl (Negative); Leukocyte Esterase-Dipstick Negative /ul (Negative); Nitrite-Dipstick Negative (Negative); Occult Blood-Urine 10 /ul (Negative); Protein-Dipstick 15 mg/dl (Negative); Specific Gravity, Urine 1.010 (1.002-1.030); Urine Bilirubin Dipstick Negative (Negative)
[2025-05-22 19:39] LABS: Troponin T High Sensitivity 14 ng/L (<=22)
[2025-05-22 19:45] LABS: Red Blood Cells-Urine 0-5 SEEN /hpf (0-5)
--- NOTE | 2025-05-22 19:46 | PCM.HP.STD ---
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 Patient lives at home alone and has for many years. Family lives in the area. Had 2 grandsons in the ED with him today who noted that they saw him about 1 week ago and he did not appear confused at all. Today patient was in his car without any pants on at home. It appears his neighbors called the police and they noted that he was sitting there comfortably but had no pants on and was confused, so they brought him in for further evaluation. Medical history significant for hairy cell leukemia and prostate cancer; here for leukemia is in remission and prostate cancer has been stable per Dr. Denis with oncology. On arrival to the ED he was normotensive and stable on room air at rest, but he was in A-fib with RVR with rate to the 130s to 140s. He follows with pulmonology for KATHY and was noted at his appointment on 05/09 to be in new onset A-fib with RVR. Went to the ED for this and cardiology recommended starting Eliquis and outpatient follow-up. It is unclear if he has started Eliquis. In the ED today his CT brain was unremarkable. Chest x-ray showed cardiomegaly with mild vascular congestion but no pleural effusions. Lab workup was fairly benign aside from BNP 4303. Ammonia level normal. UA negative. Given his uncontrolled A-fib with RVR and altered mentation, hospitalist was contacted for admission. I saw the patient at bedside in the ED, 2 grandsons were present. Patient was sitting back comfortably in bed and in no acute distress. He was alert and oriented to person and place but not time. He was able to tell me who his grandsons were, but he otherwise had difficulty answering questions and had poor insight into what brought him to the hospital today. On exam he had +2-3 lower extremity pitting edema up to the knees. Otherwise had fairly clear lung sounds bilaterally. Was in A-fib with RVR but no murmur noted. No other acute concerns noted. Will be admitted for further management. [facility] Medical History Prostate cancer Elevated PSA Kidney stones Hematuria Pancytopenia High risk medication use KATHY (obstructive sleep apnea) Fatty liver disease Agranulocytosis secondary to cancer chemotherapy Drug induced neutropenia Hairy cell leukemia Obesity Hypertension Sleep apnea Home Medications ?Medication ?Instructions ?Recorded ?Last Taken ?Type lisinopril 40 mg tablet 40 mg PO DAILY bp 12/09/15 05/09/25 History calcium 250 mg (as 1 ea PO BID 10/29/20 05/09/25 History carbonate)-vitamin D3 3.125 mcg (125 unit) tablet metoprolol tartrate 50 mg tablet 50 mg PO DAILY 04/26/24 05/09/25 History amlodipine 10 mg tablet 10 mg PO QDAY 05/09/25 05/09/25 History apixaban 5 mg tablet (Eliquis) 5 mg PO BID 30 days #60 tabs 05/09/25 Unknown Rx Allergy/AdvReac Type Severity Reaction Status Date / Time sulfamethoxazole (From AdvReac Intermediate Rash Verified 05/22/25 17:07 Bactrim) trimethoprim (From Bactrim) AdvReac Intermediate Rash Verified 05/22/25 17:07 Family History Mother Hypertension CVA (cerebral vascular accident) Breast cancer Sister CVA (cerebral vascular accident) Surgical History History of prostate biopsy Basal cell carcinoma of nose Social History household members: none Smoking Status: Never smoker second hand exposure: No alcohol intake: never substance use type: does not use ROS Constitutional Constitutional: Denies chills, fatigue, fever(s) or weakness Eyes Eyes: Denies change in vision Cardiovascular Cardiovascular: Reports edema; Denies chest pain, dyspnea on exertion, lightheadedness, palpitations or rapid heart rate Respiratory/Chest Respiratory/Chest: Denies shortness of breath at rest Gastrointestinal Gastrointestinal: Denies abdominal pain Genitourinary Genitourinary: Denies dysuria Neurologic Neurologic: Denies dizziness, focal weakness or headache(s) Vital Signs Vital Signs Vital Signs: 05/22/25 17:03 05/22/25 17:42 05/22/25 18:54 Temperature 98.6 F Temperature Source Oral Pulse Rate 109 H 138 H 147 H Respiratory Rate 20 H 22 H 22 H Blood Pressure 134/63 H 118/97 H Blood Pressure Mean 86 104 Pulse Ox 96 98 94 Oxygen Delivery Method Room Air Room Air Room Air Weight Weight: 104.44 kg Body Mass Index (BMI) 32.1 Physical Exam Const alert and no apparent distress Constitutional Narrative: Elderly male, class I obesity, alert and oriented to person and place but not time and poor insight into medical condition, otherwise sitting back fairly comfortably in bed, in no acute distress. General Appearance: cooperative and comfortable HEENT normocephalic, head/scalp atraumatic, hearing grossly normal bilaterally, nasal mucous membranes and turbinates normal and moist oral mucous membranes Eyes PERRL, EOMs intact bilaterally and conjunctivae normal Neck full ROM Chest inspection of chest normal Resp normal respiratory effort and no use of accessory muscles Resp Narrative: Breathe comfortably on room air at rest. Mild crackles noted bilaterally but otherwise good breath sounds throughout with no wheezing noted. Cardio no murmurs and peripheral pulses 2+ throughout Cardio Narrative: A-fib with RVR. GI normal to inspection, nondistended, normoactive bowel sounds, soft to palpation, non-tender and non-distended Back/Spine normal ROM Extremity Extremity Narrative: +2-3 lower extremity pitting edema up to the knees. Skin no rashes or lesions noted Neuro moves all extremities and no focal motor deficits Speech: speech normal Motor Exam: strength 5/5 throughout Results Lab / Micro Data 05/22/25 17:30 05/22/25 17:30 Labs: Laboratory Results - last 24 hr 05/22/25 17:30: WBC 6.6, RBC 4.47 L, Hgb 13.0, Hct 39.7 L, MCV 88.8, MCH 29.1, MCHC 32.7, RDW Std Deviation 47.7 H, RDW Coeff of Kristen 14.6, Plt Count 204, MPV 11.5, Immature Gran % (Auto) 0.300, Neut % (Auto) 78.5 H, Lymph % (Auto) 12.8 L, Treasure % (Auto) 7.3, Eos % (Auto) 0.6, Baso % (Auto) 0.5, Absolute Neuts (auto) 5.2, Absolute Lymphs (auto) 0.85, Nucleated RBC % 0, PT 15.3 H, INR 1.2, Sodium 143, Potassium 3.8, Chloride 107, Carbon Dioxide 23.1, Anion Gap 12, BUN 18, Creatinine 1.26 H, Estim Creat Clear Calc 62.30, Est GFR (MDRD) Non-Af 59 L, BUN/Creatinine Ratio 14.2, Glucose 118 H, Calcium 9.6, Total Bilirubin 0.67, AST 18, ALT 12, Alkaline Phosphatase 77, Troponin T High Sens 14 D, NT pro BNP II 4303 H, Total Protein 7.8, Albumin 4.2, Globulin 3.5, Albumin/Globulin Ratio 1.2, Ethyl Alcohol < 10.1 05/22/25 18:37: Urine Color Yellow, Urine Clarity Clear, Urine pH 7.0, Ur Specific [place] 1.010, Urine Protein 15 H, Urine Glucose (UA) Normal, Urine Ketones 5 H, Urine Occult Blood 10 H, Urine Nitrite Negative, Urine Bilirubin Negative, Urine Urobilinogen Normal, Ur Leukocyte Esterase Negative, Urine RBC 0-5 SEEN, Urine WBC 0-5 SEEN, Ur Squamous Epith Cells 0 SEEN, Urine Bacteria 0 SEEN, Urine Mucus 0 SEEN, Urine Opiates Screen NEGATIVE, U Buprenorphine Qual NEGATIVE, Ur Oxycodone Screen NEGATIVE, Urine Methadone Screen NEGATIVE, Urine Fentanyl Screen NEGATIVE, Ur Barbiturates Screen NEGATIVE, Ur Phencyclidine Scrn NEGATIVE, Ur Amphetamines Screen NEGATIVE, U Benzodiazepines Scrn NEGATIVE, Urine Cocaine Screen NEGATIVE, U Cannabinoids Screen NEGATIVE Rhythm Strip Rhythm Strip: A-fib Rate: 133 Ectopy: None Imaging Radiology Impression Brain CT 05/22/25 18:13 IMPRESSION: 1. No acute intracranial abnormality. 2. Mild-moderate volume loss and chronic microangiopathic changes. Reading Location: [facility] Chest X-Ray 05/22/25 18:15 IMPRESSION: Cardiomegaly. No evidence of acute pulmonary disease. No pleural effusions. Reading Location: [facility] Assessment & Plan Assessment/Plan (1) Altered mental status: (2) Atrial fibrillation with rapid ventricular response: PLAN: Plan Patient is a 75-year-old male who presented to [facility] ED on 05/22/2025 with confusion and A-fib with RVR. 1. Altered mental status ? Admit under inpatient status to PCU. Unclear etiology at this time. Alert and oriented x [address] but not time. Lives at home alone and reportedly per family is A&O x 3 at baseline. No focal deficits and CT brain negative. Ammonia level normal. Tox screen negative. Noninfectious appearing and labs largely benign. Given cancer history as below, will obtain MRI brain with and without contrast for further evaluation. Speech therapy consulted for cognitive evaluation as well. 2. A-fib with RVR with CHF exacerbation, essential hypertension ? In A-fib with RVR with rate in the 140s on admit. New diagnosis of A-fib at office appointment on 05/09. Is on home Lopressor 50 mg daily. Rate remained elevated after IV Cardizem bolus and initiation on Cardizem drip. Continue Cardizem drip and will increase to p.o. Lopressor 50 mg twice daily. Continue home Eliquis. NT-proBNP 4303, chest x-ray with mild vascular congestion and lower extremity edema noted on exam. Echocardiogram ordered. Will treat with IV Lasix 20 mg twice daily for now, monitor daily BMP and urine output. Hold home amlodipine and lisinopril. 3. History of hairy cell leukemia and prostate cancer ? Follows with Dr. Denis with oncology, last office visit in 07/2024. He recently came he was diagnosed in 2016; completed chemotherapy and has been in remission since then. Diagnosed with stage IV prostate cancer with spread to the retroperitoneal lymph nodes and bones in 2019. Completed chemotherapy in 2018 and has been on maintenance hormonal therapy since then. Notably his PSA has been uptrending significantly from 4.26 (07/2024) to 19.6 (11/2024) to 35.00 (02/2025). However there are no notes from oncology with direct us for treatment given this uptrending PSA. Obtained CT abdomen pelvis with IV contrast on this admit for further evaluation and it showed findings in the axial skeleton most consistent with a metastatic process but was otherwise benign. PSA ordered as well. No inpatient oncology needs, continue close outpatient follow-up. 4. KATHY ? Follows with outpatient pulmonology for KATHY. Continue PAP therapy at night. DVT prophylaxis: Not indicated, on Eliquis CODE STATUS: Full code, unverified Expected disposition: TBD Total clinical time spent by myself addressing the patient's medical issues, reviewing all the data, and collaborating with patient's care team: 75 minutes. Charges/Coding Visit Charges Inpatient E&M: 71380 Init Hosp L3
--- NOTE | 2025-05-22 19:53 | ECHOD_ITS ---
Reason For Study Reason For Study: ATRIAL FIBRILLATION Procedure This was a 2D Doppler, Color Flow transthoracic echocardiogram. Exam performed portable in patient room. Left Ventricle Normal LV size. Mild concentric left ventricular hypertrophy. Left ventricular systolic function is normal. The left ventricular ejection fraction is 55 %. No regional wall motion abnormalities noted. Right Ventricle Normal RV size. Normal systolic function. Atria Normal left atrium. Normal right atrium. Mitral Valve Normal mitral valve. Tricuspid Valve Normal tricuspid valve. Mild tricuspid valve insufficiency. Aortic Valve Trisinus/trileaflet aortic valve. Pulmonic Valve Normal pulmonic valve. Great Vessels Normal aortic root. The pulmonary artery is normal size. Normal inferior vena cava. Pericardium/Pleural No pericardial effusion. MMode/2D Measurements & Calculations LVIDd: 4.9 cm IVSd: 1.2 cm LVOT diam: 2.2 cm LVIDs: 3.3 cm LVPWd: 1.3 cm LVOT area: 3.9 cm2 RVDd: 3.8 cm FS: 33.1 % asc Aorta Diam: 4.1 cm LAV(MOD-bp): 83.7 ml LVAd ap4: 23.2 cm2 LAV(MOD-bp) Indexed: 37.7 ml/m2 LVLd ap4: 7.3 cm LAV(MOD-sp2): 89.1 ml EDV(MOD-sp4): 61.1 ml LAV(MOD-sp4): 76.4 ml EDV(sp4-el): 62.9 ml LVAs ap4: 14.8 cm2 LVLs ap4: 6.7 cm ESV(MOD-sp4): 26.8 ml ESV(sp4-el): 28.0 ml EF(MOD-sp4): 56.2 % EF(sp4-el): 55.5 % LVAd ap2: 23.5 cm2 SV(MOD-sp4): 34.4 ml SV(MOD-sp2): 31.2 ml LVLd ap2: 7.5 cm SI(MOD-sp4): 15.5 ml/m2 SI(MOD-sp2): 14.1 ml/m2 EDV(MOD-sp2): 61.3 ml EDV(sp2-el): 62.2 ml LVAs ap2: 15.8 cm2 LVLs ap2: 6.9 cm ESV(MOD-sp2): 30.1 ml ESV(sp2-el): 30.4 ml EF(MOD-sp2): 51.0 % SV(sp4-el): 34.9 ml Ao sinus diam: 3.[address] Junction: 3.3 cm LA dimension(2D): 5.0 cm LA A4 area: 26.1 cm2 RA A4 area: 20.0 cm2 TAPSE: 1.8 cm Doppler Measurements & Calculations Ao V2 max: 127.3 cm/sec LV V1 max: 101.8 cm/sec SV(LVOT): 65.2 ml Ao max P.7 mmHg LV V1 max P.2 mmHg Ao V2 mean: 99.8 cm/sec LV V1 mean P.7 mmHg Ao mean P.4 mmHg LV V1 mean: 80.0 cm/sec Ao V2 VTI: 21.3 cm LV V1 VTI: 16.8 cm AV (velocity ratio): 0.79 SEBASTIAN(I,D): 3.1 cm2 SEBASTIAN(V,D): 3.1 cm2 PA V2 max: 66.3 cm/sec TR max bobby: 218.4 cm/sec TR max P.1 mmHg ECHO/Echo Complete Interpretation Summary Normal LV size. Left ventricular systolic function is normal. The left ventricular ejection fraction is 55 %. Mild concentric left ventricular hypertrophy. Ordering Physician: Jonn Adams Referring Physician: Abel Barrera Performed By: Sandi Garcia RDCS
[2025-05-22] MEDS: Diltiazem 125 MG in Dextrose 5%-Water (100mL Bag) 100 ML IV (20:07)
[2025-05-22 21:02] LABS: Troponin T High Sens 2 HR 13 ng/L (<=22)
--- NOTE | 2025-05-22 21:02 | CT_ITS ---
PROCEDURE: ABDOMEN/PELVIS W IV CONT ONLY 05/22/2025 REASON FOR EXAM: ABD PAIN, WORSENING PSA W/ H/O PROSTATE CA TECHNIQUE: ABDOMEN/PELVIS W IV CONT ONLY Coronal and Sagittal reconstruction series were provided. CONTRAST: Isovue-370 VOLUME: 100 mL One or more dose reduction techniques were used (e.g., Automated exposure control, adjustment of the mA and/or kV according to patient size, use of iterative reconstruction technique. RADIATION DOSE SUMMARY: CTDlvol: 23.27 mGy DLP: 1492.13 mGycm COMPARISON: 07/09/2022 FINDINGS: The visualized lung bases are unremarkable. Normal liver. Numerous stones are seen in the gallbladder lumen. No wall thickening or pericholecystic fluid. Normal extrahepatic biliary system. 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 The splenic parenchyma is otherwise unremarkable.. Normal pancreas. Normal bilateral adrenal glands. Normal size of the right kidney. There is no right renal mass. 11.2 cm cyst is seen in the upper pole of the right kidney. There are no right renal calculi. There is no right hydronephrosis. Normal visualized right ureter. Normal size of the left kidney. There is no left renal mass. Multiple cysts are seen in the left kidney largest measuring 7.8 cm in the upper pole There are no left renal calculi. There is no left hydronephrosis. Normal visualized left ureter. Normal visualized stomach. Normal small intestine. Normal colon. The appendix is visualized and appears normal. There is no demonstrated peritoneal fluid. Normal abdominal aorta. Normal inferior vena cava. Normal retroperitoneum. Normal urinary bladder. There is no pelvic mass lesion or lymphadenopathy. There is no pelvic fluid. Small fat-containing umbilical hernia is seen. Scattered sclerotic changes are seen involving the axial skeleton most consistent with metastatic process. CT/Abdomen/Pelvis W IV Cont ONLY IMPRESSION: No acute intra-abdominal process. Bilateral renal cysts. Cholelithiasis, no cholecystitis. 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 Fat-containing umbilical hernia. Findings in the axial skeleton most consistent with a metastatic process. Reading [facility] [id number]
[2025-05-22 21:17] LABS: Magnesium 2.1 mg/dL (1.5-2.2)
[2025-05-22 22:31] LABS: Ammonia 11.0 umol/L (16-60)
[2025-05-22] MEDS: Furosemide 20 MG/2 ML VIAL IV (23:19)
[2025-05-22] MEDS: APIXABAN 5 MG TABLET PO (23:19)
[2025-05-22] MEDS: 0.9% Saline Lock 10 ML Syringe IV (23:20)
[2025-05-22 23:21] LABS: Troponin T High Sens 4 HR 12 ng/L (<=22)
[2025-05-23] VITALS (28 sets, daily range): BP systolic 92–143; BP diastolic 61–118; PULSE 56–96; RESP 16–26; TEMP 35.8–36.8; O2SAT 90–97; BMI 31.5
--- NOTE | 2025-05-23 02:37 | EKG12_ITS ---
Test Reason : RHYTHM CHANGE Blood Pressure : */* mmHG Vent. Rate : 75 BPM Atrial Rate : * BPM P-R Int : * ms QRS Dur : 96 ms QT Int : 436 ms P-R-T Axes : * -9 192 degrees QTcB Int : [address] & T wave abnormality, consider anterolateral ischemia Prolonged QT Abnormal ECG When compared with ECG of 22-May-2025 17:52, MANUAL COMPARISON REQUIRED DATA IS UNCONFIRMED Confirmed by CHARY CH, ZAKIYA ([id number]), acquisition editor PEG AUGUSTIN ([id number]) on 05/24/2025 6:42:03 AM Referred By: Confirmed By: ZAKIYA DIEZ MD
[2025-05-23 06:11] LABS: Hematocrit 39.0 % (40-54); Hemoglobin 12.6 g/dL (13.0-16.5); Mean Corp Hgb Conc 32.3 g/dL (32-36); Mean Corpuscular Volume 89.4 fL (80-94); Mean Platelet Vol. 11.0 fl (6.2-12.0); Platelet Count 193 K/mm3 (150-450); RBC Distribution Width CV 14.8 % (11.6-14.6); RBC Distribution Width SD 48.9 fl (35.1-43.9); Red Blood Count 4.36 M/mm3 (4.6-6.2); White Blood Count 5.7 K/mm3 (4.4-11.0)
[2025-05-23 06:34] LABS: Anion Gap 11 (5-15); BUN 14 mg/dL (4-19); BUN/Creat Ratio 12.3 RATIO (10-20); Calcium,Total 9.4 mg/dL (7.6-11.0); Carbon Dioxide 27.0 mmol/L (21.0-32.0); Chloride 105 mmol/L (98-108); Estimated Creatinine Clearance 67.07 ml/min (50-250); Glucose 111 mg/dL (70-99); Potassium 3.8 mmol/L (3.3-5.1)
[2025-05-23] MEDS: 0.9% Saline Lock 10 ML Syringe IV ×3 (08:53→17:07)
[2025-05-23] MEDS: APIXABAN 5 MG TABLET PO ×2 (08:53→20:48)
[2025-05-23] MEDS: Furosemide 20 MG/2 ML VIAL IV ×2 (08:53→17:07)
--- NOTE | 2025-05-23 09:30 | MRI_ITS ---
PROCEDURE: BRAIN W/WO CONTRAST 05/23/2025 REASON FOR EXAM: AMS W/ CANCER HX, EVAL FOR METS. Hairy cell leukemia and prostate cancer. TECHNIQUE: BRAIN W/WO CONTRAST Multiplanar and multisequence images were obtained. CONTRAST: Clariscan VOLUME: 20 mL COMPARISON: CT head without contrast, 05/22/2025. FINDINGS: There is patchy gyriform diffusion restriction in the right parietal lobe, posteriorly. Unfortunately, the postcontrast T1 images are degraded by patient motion artifact. There are chronic lacunar infarctions in the periventricular white matter of the left frontal and occipital lobes. Additionally there are foci of abnormal periventricular and subcortical white matter signal consistent with chronic ischemic white matter disease. There is mild diffuse cerebral atrophy with concomitant ventriculomegaly. The basilar cisterns are normal. There are normal flow voids demonstrated in the recognized intracranial vessels. As previously noted, the basilar and proximal middle cerebral arteries appear dolichoectatic. The cerebellum and brainstem are unremarkable. The cerebellar pontine angles are normal. The craniovertebral junction is normal. The sella and suprasellar regions are normal. The orbits and retro-orbital regions are unremarkable. The nasal septum is midline. There is no significant paranasal sinus disease. The mastoid air cells are clear. There is normal bone marrow signal in the skull base and calvarium. MRI/Brain W/WO Contrast IMPRESSION: 1. Patchy gyriform diffusion restriction in the right parietal lobe, posterior ly. This is in the area of the posterior watershed, and could be reversible ischemia, so-called reversible cerebral vaso constriction syndrome, or acute infarction. Tumor is less likely. 2. There are no foci of abnormal intracranial contrast enhancement to suggest metastatic disease. However, the postcontrast images are degraded by patient motion artifact. 3. Cerebral atrophy. 4. Other findings as noted. Reading Location: [id number]
[2025-05-23] MEDS: Diltiazem 125 MG in Dextrose 5%-Water (100mL Bag) 100 ML IV (11:00)
--- NOTE | 2025-05-23 12:00 | CASEMGMT ---
RN?CM?OSD CLERK?CM?to room to meet with patient for initial transition planning/care coordination?assessment.?RN?CM?introduced self and role at [facility].? Pt voices understanding and consents to?assessment?at this time.? Pt resting in bed in no distress at this time.? Pt is alert and able to answer some questions appropriately, but some information pt confused about. 2 grandsons @ bedside (Luke & Will). Osmar did clarify some of the questions that pt not able to answer correctly. Noted marital status listed in pt's chart as single, but also noted in 2016 he was . TATO RESENDIZ inquired if he was or . He stated, Yeah, mitch both. Then he stated, She lived in [place]. GS, Osmar, clarified that pt is . [employer] updated. Care providers, pharmacy, and demographics verified/updated at this time. Strata: 3 PCP: Dr Barrera Specialists: Pt stated he did not see any specialists even when RN CM asked if he saw a urologist or barker peeler. RN CM noted some specialists listed in [employer]. When RN CM then specifically asked about the following specialists, pt stated to each one, Oh, yes, I see them. Dr Denis-oncology, Dr Guzman-urologiy, Janessa Zamora-pulmonology. Preferred Pharmacy: [facility]. [facility] [address] Insurance: [facility], AARP Prescription Benefit:?yes LNOK: Sons, José Luis and Abel. Daughter, Migel. Osmar states his dad, José Luis, and José Luis's family, will be leaving for [facility] [employer] tomorrow for vacation. Living Arrangements: Lives alone in 2-story home w/basement and one step to enter. Independent w/ADL's and IADL's @ baseline. Transportation:?Pt drives. DME: ?States has a CPAP and denies further DME needs. HHC/SNF: No hx of either. Pt wishes to return home and states has no concerns with going home at time of discharge. However, pt remains w/some confusion/forgetfulness. ST eval and MRI pending. PLAN:??TBD, pending MRI results, ST eval, and course of treatment. Gabriela BSN?RN?CM
--- NOTE | 2025-05-23 14:19 | CHAPLAIN ---
Type of Pastoral Visit _x__ Initial Visit ___ Follow-up Visit ___ On-call Visit ___ General Patient Visit ___ Spiritual Assessment ___ Family Conference ___ Bereavement ___ Rapid Response ___ Code Blue ___ Other (describe below) Pastoral Care Referral From _x__ Patient ___ Family ___ Nurse ___ Physician ___ Mannequin Mounter ___ Veneer Sorter ___ Other (describe below) Sacrament/Intervention ___ Active listening ___ Anointing ___ Sikh ___ Bereavement ___ Communion ___ Vicky exploration ___ ___ Life review ___ Prayer ___ Reconciliation ___ Sacrament of Sick _x__ Supportive presence ___ Wedding ___ Other (describe below) Pastoral Comments patient has family members in his room and he states that he is fine and has no concerns; casual conversation among the family and offer of support as they might desire
--- NOTE | 2025-05-23 16:06 | CASEMGMT ---
Social Work - Next of Kin, discharge plan Pt's son José Luis is listed as primary contact. LINDA spoke with José Luis on the phone at this time. José Luis and his family are going out of the country starting tomorrow 05/24 at 0500 for vacation. LINDA updated José Luis that pt is presenting with significant cognitive impairment (ST evaluated with a BCAT score of 21/50). Pt 6 click score is 24 indicating pt is moving well. Pt lives at home alone and children are out of the area. LINDA voiced concerned with pt being home alone at time of discharge. José Luis states that in his place, pt's dgt Migel ([phone]), [facility], can be primary contact for pt. Pt does have a brother and sister that live in [place] and José Luis states they will be able to transport pt home from the hospital and check on pt regularly. José Luis feels pt will be safe to return home with family checking on him. Pt also has a son Abel in [place] ([phone]) who can be reached and he can be in contact with pt's siblings. José Luis to reach out to Migel and Abel to update on pt current cognitive status and that hospital staff will be reaching out to them for discharge planning. Family Contacts starting 05/24: Jason Mccollum [phone] or Abel Varma [phone] DC Plan: Return home with supervision for family LILIA Neff
[2025-05-23] MEDS: Digoxin 250 MCG/ML Ampul 500 MCG IV (17:02)
--- NOTE | 2025-05-23 18:18 | PN.HOSP_ITS ---
Reason for Visit Reason for Visit: Diagnoses Unspecified atrial fibrillation (05/22/25) Altered mental status, unspecified (05/22/25) Subjective Subjective Patient was seen and examined today, I elected to take him off his Cardizem drip and increase his beta-eugenie, I also gave him a dose of IV digoxin. Patient remains confused but knows he is in the hospital and knows who he has. I talked with the patient's grandson by phone today, I told him that I did not have a reason for the patient's confusion. I asked teleneurology see the patient in consultation tomorrow. Objective Data Objective Data Vital Signs: Vital Signs Temp Pulse Resp BP Pulse Ox O2 Del Method O2 Flow Rate 97.5 F L 94 22 H 129/82 H 92 Room Air 2 05/23/25 17:00 05/23/25 17:02 05/23/25 17:00 05/23/25 17:00 05/23/25 17:00 05/23/25 17:00 05/23/25 08:08 Oxygen Flow Rate (L/min) 2 Oxygen Delivery Method Room Air Weight: 102.5 kg Body Mass Index (BMI) 31.5 Intake & Output: Intake and Output for Last 24 Hours 05/21/25 05/22/25 05/23/25 23:59 23:59 23:59 Intake Total 30.74 / 95.74 825.17 / 825.17 Output Total 2450 / 2450 Balance 30.74 / -304.26 -1624.83 / -1624.83 Lab / Micro Data 05/23/25 05:55 05/23/25 05:55 Labs: Laboratory Results - last 24 hr 05/22/25 17:30: WBC 6.6, RBC 4.47 L, Hgb 13.0, Hct 39.7 L, MCV 88.8, MCH 29.1, MCHC 32.7, RDW Std Deviation 47.7 H, RDW Coeff of Kristen 14.6, Plt Count 204, MPV 11.5, Immature Gran % (Auto) 0.300, Neut % (Auto) 78.5 H, Lymph % (Auto) 12.8 L, Douglas % (Auto) 7.3, Eos % (Auto) 0.6, Baso % (Auto) 0.5, Absolute Neuts (auto) 5.2, Absolute Lymphs (auto) 0.85, Nucleated RBC % 0, PT 15.3 H, INR 1.2, Sodium 143, Potassium 3.8, Chloride 107, Carbon Dioxide 23.1, Anion Gap 12, BUN 18, C reatinine 1.26 H, Estim Creat Clear Calc 62.30, Est GFR (MDRD) Non-Af 59 L, BUN/Creatinine Ratio 14.2, Glucose 118 H, Hemoglobin A1c 6.2 H, Calcium 9.6, Total Bilirubin 0.67, AST 18, ALT 12, Alkaline Phosphatase 77, Troponin T High Sens 14 D, NT pro BNP II 4303 H, Total Protein 7.8, Albumin 4.2, Globulin 3.5, Albumin/Globulin Ratio 1.2, Ethyl Alcohol < 10.1 05/22/25 18:37: Urine Color Yellow, Urine Clarity Clear, Urine pH 7.0, Ur Specific Roach 1.010, Urine Protein 15 H, Urine Glucose (UA) Normal, Urine Ketones 5 H, Urine Occult Blood 10 H, Urine Nitrite Negative, Urine Bilirubin Negative, Urine Urobilinogen Normal, Ur Leukocyte Esterase Negative, Urine RBC 0-5 SEEN, Urine WBC 0-5 SEEN, Ur Squamous Epith Cells 0 SEEN, Urine Bacteria 0 SEEN, Urine Mucus 0 SEEN, Urine Opiates Screen NEGATIVE, U Buprenorphine Qual NEGATIVE, Ur Oxycodone Screen NEGATIVE, Urine Methadone Screen NEGATIVE, Urine Fentanyl Screen NEGATIVE, Ur Barbiturates Screen NEGATIVE, Ur Phencyclidine Scrn NEGATIVE, Ur Amphetamines Screen NEGATIVE, U Benzodiazepines Scrn NEGATIVE, Urine Cocaine Screen NEGATIVE, U Cannabinoids Screen NEGATIVE 05/22/25 19:55: Phosphorus 2.9, Magnesium 2.1, Troponin T Hi Sens 2 Hr 13 05/22/25 20:45: Troponin T Hi Sens 2 Hr Cancelled 05/22/25 21:30: Troponin T Hi Sens 4Hr 12 05/22/25 21:53: Ammonia 11.0 L 05/23/25 05:55: WBC 5.7, RBC 4.36 L, Hgb 12.6 L, Hct 39.0 L, MCV 89.4, MCH 28.9, MCHC 32.3, RDW Std Deviation 48.9 H, RDW Coeff of Kristen 14.8 H, Plt Count 193, MPV 11.0, Sodium 142, Potassium 3.8, Chloride 105, Carbon Dioxide 27.0, Anion Gap 11, BUN 14, Creatinine 1.16, Estim Creat Clear Calc 67.07, Est GFR (MDRD) Non-Af 66, BUN/Creatinine Ratio 12.3, Glucose 111 H, Calcium 9.4 Radiography Diagnostic Testing: Radiology Impression Brain CT 05/22/25 18:13 IMPRESSION: 1. No acute intracranial abnormality. 2. Mild-moderate volume loss and chronic microangiopathic changes. Reading Location: [facility] Chest X-Ray 05/22/25 18:15 IMPRESSION: Cardiomegaly. No evidence of acute pulmonary disease. No pleural effusions. Reading Location: [facility] Abdomen/Pelvis CT 05/22/25 21:02 IMPRESSION: No acute intra-abdominal process. Bilateral renal cysts. Cholelithiasis, no cholecystitis. 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 Fat-containing umbilical hernia. Findings in the axial skeleton most consistent with a metastatic process. Reading Location: [place] [id number] Brain MRI 05/23/25 09:30 IMPRESSION: 1. Patchy gyriform diffusion restriction in the right parietal lobe, posteriorly. This is in the area of the posterior watershed, and could be reversible ischemia, so-called reversible cerebral vasoconstriction syndrome, or acute infarction. Tumor is less likely. 2. There are no foci of abnormal intracranial contrast enhancement to suggest metastatic disease. However, the postcontrast images are degraded by patient motion artifact. 3. Cerebral atrophy. 4. Other findings as noted. Reading Location: [id number] Rhythm Strip Rhythm Strip: A-fib Rate: 133 Ectopy: None Physical Exam Const alert, no apparent distress and healthy appearing General Appearance: cooperative, well kempt and well developed Orientation / Consciousness: awake, oriented to person and oriented to place HEENT normocephalic, head/scalp atraumatic and moist oral mucous membranes Eyes PERRL, EOMs intact bilaterally and conjunctivae normal Neck supple, no JVD, thyroid normal and no carotid bruits General: trachea midline Resp normal respiratory effort, no retractions, no use of accessory muscles and clear to auscultation bilaterally Auscultation: Negative for rales, rhonchi or wheezes Cardio S1 normal heart sound, S2 normal heart sound, no murmurs, no rub and no gallops Cardio Narrative: Heart rate and rhythm is irregular GI normal to inspection, nondistended, normoactive bowel sounds, soft to palpation, non-tender and non-distended Extremity no clubbing, cyanosis or edema Skin no rashes or lesions noted General Skin Exam: no breakdown Neuro CN's II-XII intact bilaterally, no focal motor deficits and no sensory deficits noted Neuro Narrative: Patient exhibits confusion Sensorium / Orientation: awake, alert, oriented to person and oriented to place Speech: speech normal Psych Psych Narrative: Patient exhibits confusion Assessment & Plan Assessment/Plan (1) Atrial fibrillation with rapid ventricular response: PLAN: Plan 1. Atrial fibrillation with rapid ventricular response-patient's heart rate is under adequate control, nonetheless I have decided to take the patient off his Cardizem drip and increase his metoprolol to see if this would control his rate. Also gave the patient 1 dose of IV digoxin. Patient is on Eliquis. #2 encephalopathy-etiology unclear at this point, I will have teleneurology see the patient, patient's MRI did not show any evidence of metastatic cancer or acute stroke. #3 essential hypertension-patient is on lisinopril, metoprolol, and amlodipine #4 prostate cancer-complicates care, management, recovery, and prognosis Total clinical time spent by myself addressing the patient's medical issues, reviewing all of his data, and collaborating with patient's care team: 35 minutes Charges/Coding Visit Charges Inpatient E&M: 99458 Subs Hosp L2
[2025-05-24 03:00] VITALS: BP 127/88; PULSE 72; RESP 18; TEMP 20.7; O2SAT 94
[2025-05-24 09:03] VITALS: BP 130/97; PULSE 78; RESP 18; TEMP 36.3; O2SAT 94
[2025-05-24 09:09] VITALS: PULSE 78
[2025-05-24] MEDS: 0.9% Saline Lock 10 ML Syringe IV ×3 (09:09→21:25)
[2025-05-24] MEDS: Furosemide 20 MG/2 ML VIAL IV ×2 (09:09→17:19)
[2025-05-24] MEDS: APIXABAN 5 MG TABLET PO ×2 (09:09→21:25)
--- NOTE | 2025-05-24 12:53 | STROKE.CONS ---
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 CT brain negative. 05/23/25 MRI [facility] brain shows scattered right MCA infarcts. TTE EF 55%. He is on eliquis. Neurological examination shows nonfocal exam, NIHSS-0. ASSESSMENT/PLAN: Acute right MCA ischemic stroke, post stroke day #2. Stroke mechanism is likely cardioembolic due to Afib. 1) Recommend stroke work-up including CTA head/neck 2) Recommend completing stroke order sets including LDL, HgA1c, and PT/OT consults, etc. 2) If LDL < 100, recommend adding Lipitor. 3) Agree with eliquis for stroke prevention 4) Will review CTA when completed. 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 In ER, CT brain negative. He was admitted. 05/23/25 MRI [facility] brain shows scattered right MCA infarcts. TTE EF 55%. He is on eliquis. Today the patient reports he feels at baseline, denies confusion currently. 130/97. PENDING SALE TO [facility] Medical History Prostate cancer Elevated PSA Kidney stones Hematuria Pancytopenia High risk medication use KATHY (obstructive sleep apnea) Fatty liver disease Agranulocytosis secondary to cancer chemotherapy Drug induced neutropenia Hairy cell leukemia Obesity Hypertension Sleep apnea Home Medications ?Medication ?Instructions ?Recorded ?Last Taken ?Type lisinopril 40 mg tablet 40 mg PO DAILY bp 12/09/15 05/09/25 History calcium 250 mg (as 1 ea PO BID 10/29/20 05/09/25 History carbonate)-vitamin D3 3.125 mcg (125 unit) tablet metoprolol tartrate 50 mg tablet 50 mg PO DAILY 04/26/24 05/09/25 History amlodipine 10 mg tablet 10 mg PO QDAY 05/09/25 05/09/25 History apixaban 5 mg tablet (Eliquis) 5 mg PO BID 30 days #60 tabs 05/09/25 Unknown Rx Allergy/AdvReac Type Severity Reaction Status Date / Time sulfamethoxazole (From AdvReac Intermediate Rash Verified 05/22/25 17:07 Bactrim) trimethoprim (From Bactrim) AdvReac Intermediate Rash Verified 05/22/25 17:07 Family History Mother Hypertension CVA (cerebral vascular accident) Breast cancer Sister CVA (cerebral vascular accident) Surgical History History of prostate biopsy Basal cell carcinoma of nose Social History household members: none Smoking Status: Never smoker second hand exposure: No alcohol intake: never substance use type: does not use Vital Signs Vital Signs Vital Signs: 05/23/25 13:00 05/23/25 14:00 05/23/25 15:04 Temperature 97.5 F L Temperature Source Temporal Pulse Rate 82 76 77 Pulse Strength Respiratory Rate 20 H 16 21 H Respiratory Effort Respiratory Depth Respiratory Pattern Blood Pressure 113/92 H 129/103 H 124/74 H Blood Pressure Mean 99 111 90 Blood Pressure Source Monitor Monitor Monitor Blood Pressure Position Semi-Fowlers Semi-Fowlers Semi-Fowlers Blood Pressure Location Left Arm Left Arm Left Arm Pulse Ox 92 93 92 Oxygen Delivery Method Room Air Room Air Room Air 05/23/25 15:05 05/23/25 16:00 05/23/25 17:00 Temperature Temperature Source Pulse Rate 65 82 Pulse Strength Respiratory Rate 17 22 H Respiratory Effort Normal Non-Labored Respiratory Depth Normal Respiratory Pattern Normal Blood Pressure 115/92 H 129/82 H Blood Pressure Mean 99 97 Blood Pressure Source Monitor Monitor Blood Pressure Position Semi-Fowlers Semi-Fowlers Blood Pressure Location Left Arm Left Arm Pulse Ox 95 92 Oxygen Delivery Method Room Air Room Air Room Air 05/23/25 17:00 05/23/25 17:02 05/23/25 20:43 Temperature 97.5 F L 96.4 F L Temperature Source Temporal Temporal Pulse Rate 82 94 89 Pulse Strength Respiratory Rate 22 H 18 Respiratory Effort Respiratory Depth Respiratory Pattern Blood Pressure 129/82 H 133/108 H Blood Pressure Mean 97 116 Blood Pressure Source Monitor Monitor Blood Pressure Position Semi-Fowlers Supine Blood Pressure Location Left Arm Left Arm Pulse Ox 92 91 Oxygen Delivery Method Room Air Room Air 05/23/25 20:50 05/23/25 22:00 05/24/25 03:00 Temperature 69.3 F L Temperature Source Temporal Pulse Rate 89 72 Pulse Strength Respiratory Rate 18 Respiratory Effort Normal Non-Labored Respiratory Depth Normal Respiratory Pattern Normal Blood Pressure 127/88 H Blood Pressure Mean 101 Blood Pressure Source Monitor Blood Pressure Position Supine Blood Pressure Location Right Arm Pulse Ox 94 Oxygen Delivery Method Room Air CPAP 05/24/25 09:03 05/24/25 09:09 05/24/25 09:10 Temperature 97.3 F L Temperature Source Temporal Pulse Rate 78 78 Pulse Strength Normal (2+) Respiratory Rate 18 Respiratory Effort Respiratory Depth Respiratory Pattern Blood Pressure 130/97 H Blood Pressure Mean 108 Blood Pressure Source Monitor Blood Pressure Position Sitting Blood Pressure Location Left Arm Pulse Ox 94 Oxygen Delivery Method Room Air 05/24/25 09:16 Temperature Temperature Source Pulse Rate Pulse Strength Respiratory Rate Respiratory Effort Normal Non-Labored Respiratory Depth Normal Respiratory Pattern Normal Blood Pressure Blood Pressure Mean Blood Pressure Source Blood Pressure Position Blood Pressure Location Pulse Ox Oxygen Delivery Method Room Air Weight Weight: 102.5 kg Body Mass Index (BMI) 31.5 EEG Results Procedure Details EEG Procedure Details: 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 Mental Status: The patient?s mental status was normal including orientation. Language was intact. Cranial nerves: Visual tavera full, and extra-ocular motion was intact. Face motion symmetric. There was no dysarthria. Motor: Normal strength and tone in all four extremities. No pronator drift. Sensation: Intact light touch bilaterally, no extinction. Coordination: Bilateral finger to nose was normal. There was no dysmetria. Gait: deferred Lab / Micro Data 05/23/25 05:55 05/23/25 05:55 Rhythm Strip Rhythm Strip: A-fib Rate: 133 Ectopy: None Imaging Radiology Impression Echocardiogram 05/22/25 19:53 Interpretation Summary Normal LV size. Left ventricular systolic function is normal. The left ventricular ejection fraction is 55 %. Mild concentric left ventricular hypertrophy. Ordering Physician: Jonn Adams Referring Physician: Lisset Barrera Performed By: Sandi Garcia RDCS Active Medications Active Medications Active Medications: Current Medications Generic Name Dose Route Start Last Admin Trade Name Freq PRN Reason Stop Dose Admin Acetaminophen 650 mg 05/22/25 22:45 Acetaminophen 325 Mg Tablet PO Q6H PRN PRN Pain 1-10 Or Fever>100.7 Apixaban 5 mg 05/22/25 22:45 05/24/25 09:09 Apixaban 5 Mg Tablet PO 5 mg BID BARB Administration Furosemide 20 mg 05/22/25 22:45 05/24/25 09:09 Furosemide 20 Mg/2 Ml Vial IV 20 mg BIDLX BARB Administration Protocol Sodium Chloride 250 mls @ 15 mls/hr 05/22/25 22:20 IV .[id number] PRN Saline Flush Sodium Chloride 250 mls @ 15 mls/hr 05/22/25 22:20 IV .[id number] PRN Additional IVPB Infusion Melatonin 3 mg 05/22/25 22:45 Melatonin 3 Mg Tablet PO QHS PRN PRN INSOMNIA Metoprolol Tartrate 100 mg 05/23/25 22:00 05/24/25 09:09 Metoprolol Tartrate 100 Mg Tablet PO 100 mg BID BARB Administration Protocol Ondansetron HCl 4 mg 05/22/25 22:45 Ondansetron 4 Mg/2 Ml Vial IV Q8H PRN PRN NAUSEA/VOMITING Sodium Chloride 10 - 40 ml 05/22/25 22:20 05/24/25 09:09 0.9% Saline Lock 10 Ml Syringe IV 10 ml UD PRN Administration SALINE FLUSH
--- NOTE | 2025-05-24 13:31 | CT_ITS ---
PROCEDURE: CTA HEAD AND NECK W/ CONTRAST 05/24/2025 REASON FOR EXAM: STROKE TECHNIQUE: CTA HEAD AND NECK W/ CONTRAST Multiplanar Sagittal and Coronal images were obtained. 3D post processing was performed CONTRAST: Isovue-300 VOLUME: 100 mL One or more dose reduction techniques were used (e.g., Automated exposure control, adjustment of the mA and/or kV according to patient size, use of iterative reconstruction technique). RADIATION DOSE SUMMARY: CTDlvol: 34 mGy DLP: 1644.45 mGycm COMPARISON: Prior unenhanced CT scan of the head dated May 23, 2025. FINDINGS: Aortic Arch: Normal size and branching pattern. No significant atherosclerotic plaque. Brachiocephalic and Subclavians: Mild atherosclerotic plaque without significant stenosis. RIGHT Carotid: Right CCA: Unremarkable. Right ICA: Mild calcified and soft plaque. Maximum stenosis (NASCET): <50 % Right ECA: Unremarkable. LEFT Carotid: Left CCA: Unremarkable. Left ICA: Mild calcified and soft plaque. Maximum stenosis (NASCET): <50 % Left ECA: Unremarkable. Vertebrals: Dominant right vertebral artery. RIGHT Vertebral: Unremarkable. LEFT Vertebral: Unremarkable. Anatomy: [place] anatomy is normal. Aneurysm or avm: No intracranial aneurysms or large vascular malformations are identified. Anterior cerebral arteries: Unremarkable: Middle cerebral arteries: Unremarkable. Basilar artery: Unremarkable. Posterior cerebral arteries: Unremarkable. Other major branches of the posterior circulation: Unremarkable. Major venous structures: Unremarkable. Other findings: Neck: Lungs: Bones: CT/CTA Head AND Neck W/ Contrast IMPRESSION: Minimal plaque at the origin of the right and left internal carotid arteries. No significant stenosis seen. Reading Location: [place] [id number]
[2025-05-24 15:00] VITALS: BP 119/78; PULSE 91; RESP 18; TEMP 36.8; O2SAT 95
[2025-05-24 15:08] LABS: PSA, Total 49.7 ng/mL (0.0-4.0)
[2025-05-24 15:09] LABS: Cholesterol 156 mg/dL (<=200); Low Density Lipoprotein Calc. 99 mg/dL; Triglycerides 70 mg/dL; Very Low Density Lipoprotein 14 mg/dL (5-40); cholesterol:hdl ratio screen 3.61
--- NOTE | 2025-05-24 16:50 | PCM.PN.HOSP ---
Reason for Visit Reason for Visit: Diagnoses Unspecified atrial fibrillation (05/22/25) Altered mental status, unspecified (05/22/25) Subjective Subjective Patient was seen and examined today, his rate appears to be controlled and I have decided not to give him any more digoxin. Patient was seen by speech therapy today and he scored 66 out of the 100 on his cognitive exam, he was seen by teleneurology, they felt that the patient has had small strokes in the right MCA area due to A-fib. It was recommended that the patient stay on anticoagulation and continue to receive a statin and PT and OT evaluation. Objective Data Objective Data Vital Signs: Vital Signs Temp Pulse Resp BP Pulse Ox O2 Del Method O2 Flow Rate 98.2 F 91 18 119/78 95 Room Air 2 05/24/25 15:00 05/24/25 15:00 05/24/25 15:00 05/24/25 15:00 05/24/25 15:00 05/24/25 15:00 05/23/25 08:08 Oxygen Flow Rate (L/min) 2 Oxygen Delivery Method Room Air Weight: 102.5 kg Body Mass Index (BMI) 31.5 Intake & Output: Intake and Output for Last 24 Hours 05/22/25 05/23/25 05/24/25 23:59 23:59 23:59 Intake Total 30.74 / 95.74 825.17 / 825.17 360 / 360 Output Total 2550 / 2550 650 / 650 Balance 30.74 / -304.26 -1724.83 / -1724.83 -290 / -290 Lab / Micro Data 05/23/25 05:55 05/23/25 05:55 Labs: Laboratory Results - last 24 hr 05/23/25 05:55: Total PSA 49.7 H 05/24/25 05:55: Triglycerides 70, Cholesterol 156, LDL Cholesterol, Calc 99, VLDL Cholesterol 14, HDL Cholesterol 43, Cholesterol/HDL Ratio 3.61 Radiography Diagnostic Testing: Radiology Impression Echocardiogram 05/22/25 19:53 Interpretation Summary Normal LV size. Left ventricular systolic function is normal. The left ventricular ejection fraction is 55 %. Mild concentric left ventricular hypertrophy. Ordering Physician: Jonn Adams Referring Physician: Abel Barrera Performed By: Sandi Garcia, VICTORINO Head/Neck CTA 05/24/25 13:31 IMPRESSION: Minimal plaque at the origin of the right and left internal carotid arteries. No significant stenosis seen. Reading Location: [place] [id number] Rhythm Strip Rhythm Strip: A-fib Rate: 133 Ectopy: None Physical Exam Narrative alert, no apparent distress and healthy appearing General Appearance: cooperative, well kempt and well developed Orientation / Consciousness: awake, oriented to person and oriented to place HEENT normocephalic, head/scalp atraumatic and moist oral mucous membranes Eyes PERRL, EOMs intact bilaterally and conjunctivae normal Neck supple, no JVD, thyroid normal and no carotid bruits General: trachea midline Resp normal respiratory effort, no retractions, no use of accessory muscles and clear to auscultation bilaterally Auscultation: Negative for rales, rhonchi or wheezes Cardio S1 normal heart sound, S2 normal heart sound, no murmurs, no rub and no gallops Cardio Narrative: Heart rate and rhythm is irregular GI normal to inspection, nondistended, normoactive bowel sounds, soft to palpation, non-tender and non-distended Extremity no clubbing, cyanosis or edema Skin no rashes or lesions noted General Skin Exam: no breakdown Neuro CN's II-XII intact bilaterally, no focal motor deficits and no sensory deficits noted Neuro Narrative: Patient exhibits confusion Sensorium / Orientation: awake, alert, oriented to person and oriented to place Speech: speech normal Psych Psych Narrative: Patient exhibits confusion Assessment & Plan Assessment/Plan (1) Altered mental status: (2) Atrial fibrillation with rapid ventricular response: PLAN: Plan 1. Atrial fibrillation with rapid ventricular response-patient's heart rate is under adequate control with metoprolol alone, he will be monitored #2 encephalopathy-secondary to ischemic strokes in the right MCA area-it was recommended the patient remain on full anticoagulation, he will receive a statin, I talked briefly with the patient's daughter and suggested that the patient go to the rehab department here at the hospital for inpatient rehab at the time of discharge from the hospital. I will talk with the patient tomorrow concerning this #3 essential hypertension-patient is on lisinopril, metoprolol, and amlodipine #4 prostate cancer-complicates care, management, recovery, and prognosis Total clinical time spent by myself addressing the patient's medical issues, reviewing all of his data, and collaborating with patient's care team: 35 minutes Charges/Coding Visit Charges Inpatient E&M: 33209 Subs Hosp L2
[2025-05-24 21:00] VITALS: BP 128/92; PULSE 80; RESP 16; TEMP 36.8; O2SAT 97
[2025-05-24 21:25] VITALS: BP 128/92; PULSE 80
[2025-05-25 03:00] VITALS: BP 137/94; PULSE 67; RESP 16; TEMP 36.7; O2SAT 94
[2025-05-25 05:40] VITALS: BMI 31.2
[2025-05-25 05:44] VITALS: BMI 31.2
[2025-05-25 09:22] VITALS: BP 124/63; PULSE 120; RESP 18; TEMP 36.4; O2SAT 95
[2025-05-25 09:24] VITALS: PULSE 120
[2025-05-25] MEDS: Furosemide 20 MG/2 ML VIAL IV ×2 (09:24→17:08)
[2025-05-25] MEDS: APIXABAN 5 MG TABLET PO ×2 (09:24→20:52)
--- NOTE | 2025-05-25 11:40 | CASEMGMT ---
[facility] Consultant Per physician, pt is appropriate for the inpatient rehab unit and physician made referral to [facility] in [facility]. SW spoke with [facility] and pt can be accepted on Wednesday. Physician is aware. SW met with pt and pt confirmed that physician spoke to him regarding placement at [facility] and pt is agreeable. LINDA placed phone call to pt's dgt Jason. Jason also spoke with physician on the phone and is agreeable to inpatient rehab for pt. LINDA notified Jason of [facility] options including [facility] and other hospital based [facility]. Jason denies need for list of options and would like placement at [facility]. LINDA updated Jason that pt has been accepted and pt to transfer to [facility] on Wednesday. Jason is agreeable. Green Sheet placed on chart to facilitate weekend discharge. Plan: Inpatient Rehab on Wednesday LILIA Lund
--- NOTE | 2025-05-25 11:54 | CASEMGMT ---
Social Work PHQ9 depression screen completed due to diagnosis of stroke. Score of 0. S. LILIA Bosch
[2025-05-25 15:00] VITALS: BP 124/91; PULSE 53; RESP 18; TEMP 36.3; O2SAT 94
--- NOTE | 2025-05-25 16:17 | PCM.PN.HOSP ---
Reason for Visit Reason for Visit: Diagnoses Unspecified atrial fibrillation (05/22/25) Altered mental status, unspecified (05/22/25) Subjective Subjective Patient was seen and examined today, he is alert and answers most questions appropriately. I have talked to the patient's daughter yesterday and told her I felt it was appropriate for the patient to go to the rehab unit for rehab services due to his stroke and she agreed. I talked with the patient today about this and he is okay with it. Patient has been bradycardic today and I elected to stop his metoprolol and I will probably restart it tomorrow at a lower dose. Patient is asymptomatic with the bradycardia. Objective Data Objective Data Vital Signs: Vital Signs Temp Pulse Resp BP Pulse Ox O2 Del Method O2 Flow Rate 97.3 F L 53 L 18 124/91 H 94 Room Air 2 05/25/25 15:00 05/25/25 15:00 05/25/25 15:00 05/25/25 15:00 05/25/25 15:00 05/25/25 15:00 05/23/25 08:08 Oxygen Flow Rate (L/min) 2 Oxygen Delivery Method Room Air Weight: 101.7 kg Body Mass Index (BMI) 31.2 Intake & Output: Intake and Output for Last 24 Hours 05/23/25 05/24/25 05/25/25 23:59 23:59 23:59 Intake Total 825.17 / 825.17 720 / 820 500 / 500 Output Total 2550 / 2550 750 / 1150 950 / 950 Balance -1724.83 / -1724.83 -30 / -330 -450 / -450 Lab / Micro Data 05/23/25 05:55 05/23/25 05:55 Labs: Laboratory Results - last 24 hr 05/23/25 05:55: PSA Serial Monitor Not Reportable Rhythm Strip Rhythm Strip: A-fib Rate: 133 Ectopy: None Physical Exam Narrative alert, no apparent distress and healthy appearing General Appearance: cooperative, well kempt and well developed Orientation / Consciousness: awake, oriented to person and oriented to place HEENT normocephalic, head/scalp atraumatic and moist oral mucous membranes Eyes PERRL, EOMs intact bilaterally and conjunctivae normal Neck supple, no JVD, thyroid normal and no carotid bruits General: trachea midline Resp normal respiratory effort, no retractions, no use of accessory muscles and clear to auscultation bilaterally Auscultation: Negative for rales, rhonchi or wheezes Cardio S1 normal heart sound, S2 normal heart sound, no murmurs, no rub and no gallops Cardio Narrative: Heart rate and rhythm is irregular GI normal to inspection, nondistended, normoactive bowel sounds, soft to palpation, non-tender and non-distended Extremity no clubbing, cyanosis or edema Skin no rashes or lesions noted General Skin Exam: no breakdown Neuro CN's II-XII intact bilaterally, no focal motor deficits and no sensory deficits noted Neuro Narrative: Patient exhibits confusion Sensorium / Orientation: awake, alert, oriented to person and oriented to place Speech: speech normal Psych Psych Narrative: Patient exhibits confusion Assessment & Plan Assessment/Plan (1) Ischemic stroke: (2) Altered mental status: (3) Atrial fibrillation with rapid ventricular response: PLAN: Plan 1. Atrial fibrillation with rapid ventricular response-patient is bradycardic today and I have decided to hold his metoprolol, it will be restarted tomorrow at a lower dose #2 encephalopathy-secondary to ischemic strokes in the right MCA area-it was recommended the patient remain on full anticoagulation, he will receive a statin, I talked briefly with the patient's daughter and suggested that the patient go to the rehab department here at the hospital for inpatient rehab at the time of discharge from the hospital. I will talk with the patient tomorrow concerning this #3 essential hypertension-patient is on lisinopril, metoprolol, and amlodipine #4 prostate cancer-complicates care, management, recovery, and prognosis #5 right MCA ischemic stroke-neurology suggested the patient remain on anticoagulation, he is also on a statin presently, PT and OT will continue to see the patient Total clinical time spent by myself addressing the patient's medical issues, reviewing all of his data, and collaborating with patient's care team: 35 minutes Charges/Coding Visit Charges Inpatient E&M: 14907 Subs Hosp L2
[2025-05-25] MEDS: 0.9% Saline Lock 10 ML Syringe IV (20:55)
[2025-05-25 21:00] VITALS: BP 108/80; PULSE 75; RESP 16; TEMP 37; O2SAT 93
[2025-05-26 03:00] VITALS: BP 141/88; PULSE 70; RESP 18; TEMP 36.8; O2SAT 94
[2025-05-26 06:00] VITALS: BMI 31.4
[2025-05-26 07:02] VITALS: O2SAT 93
[2025-05-26 08:46] VITALS: BP 141/99; PULSE 84; RESP 18; TEMP 36.3; O2SAT 95
[2025-05-26] MEDS: APIXABAN 5 MG TABLET PO ×2 (08:50→20:11)
[2025-05-26] MEDS: Furosemide 20 MG/2 ML VIAL IV ×2 (08:50→17:25)
[2025-05-26 16:46] VITALS: BMI 31.4
[2025-05-26] MEDS: 0.9% Saline Lock 10 ML Syringe IV (17:25)
[2025-05-26 17:31] VITALS: BP 105/81; PULSE 78; RESP 18; TEMP 36.6; O2SAT 96
--- NOTE | 2025-05-26 18:56 | PCM.PN.HOSP ---
Reason for Visit Reason for Visit: Diagnoses Unspecified atrial fibrillation (05/22/25) Cerebral infarction, unspecified (05/22/25) Altered mental status, unspecified (05/22/25) Subjective Subjective Patient was seen and examined today, his pulse rate appears to be controlled on no beta-eugenie. I have decided to add a small amount of metoprolol starting tonight and observe his response to this. Patient will most likely be able to go to the rehab unit tomorrow if he remains medically stable. Objective Data Objective Data Vital Signs: Vital Signs Temp Pulse Resp BP Pulse Ox O2 Del Method O2 Flow Rate 97.8 F 78 18 105/81 H 96 Room Air 2 05/26/25 17:31 05/26/25 17:31 05/26/25 17:31 05/26/25 17:31 05/26/25 17:31 05/26/25 17:31 05/23/25 08:08 Oxygen Flow Rate (L/min) 2 Oxygen Delivery Method Room Air Weight: 102.2 kg Body Mass Index (BMI) 31.4 Intake & Output: Intake and Output for Last 24 Hours 05/24/25 05/25/25 05/26/25 23:59 23:59 23:59 Intake Total 720 / 820 700 / 800 100 / 100 Output Total 750 / 1150 950 / 1200 650 / 650 Balance -30 / -330 -250 / -400 -550 / -550 Lab / Micro Data 05/23/25 05:55 05/23/25 05:55 Rhythm Strip Rhythm Strip: A-fib Rate: 133 Ectopy: None Physical Exam Narrative alert, no apparent distress and healthy appearing General Appearance: cooperative, well kempt and well developed Orientation / Consciousness: awake, oriented to person and oriented to place HEENT normocephalic, head/scalp atraumatic and moist oral mucous membranes Eyes PERRL, EOMs intact bilaterally and conjunctivae normal Neck supple, no JVD, thyroid normal and no carotid bruits General: trachea midline Resp normal respiratory effort, no retractions, no use of accessory muscles and clear to auscultation bilaterally Auscultation: Negative for rales, rhonchi or wheezes Cardio S1 normal heart sound, S2 normal heart sound, no murmurs, no rub and no gallops Cardio Narrative: Heart rate and rhythm is irregular GI normal to inspection, nondistended, normoactive bowel sounds, soft to palpation, non-tender and non-distended Extremity no clubbing, cyanosis or edema Skin no rashes or lesions noted General Skin Exam: no breakdown Neuro CN's II-XII intact bilaterally, no focal motor deficits and no sensory deficits noted Neuro Narrative: Patient exhibits confusion Sensorium / Orientation: awake, alert, oriented to person and oriented to place Speech: speech normal Psych Psych Narrative: Patient exhibits confusion Assessment & Plan Assessment/Plan (1) Ischemic stroke: (2) Altered mental status: (3) Atrial fibrillation with rapid ventricular response: PLAN: Plan 1. 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-continue Eliquis #3 essential hypertension-patient is on, metoprolol and furosemide #4 prostate cancer-complicates care, management, recovery, and prognosis #5 right MCA ischemic stroke-neurology suggested the patient remain on anticoagulation, he is also on a statin presently, PT and OT will continue to see the patient #6 elevated PSA-patient has a history of prostate cancer I do not feel the patient had congestive heart failure Total clinical time spent by myself addressing the patient's medical issues, reviewing all of his data, and collaborating with patient's care team: 35 minutes Charges/Coding Visit Charges Inpatient E&M: 04871 Subs Hosp L2
[2025-05-26 20:00] VITALS: BP 139/101; PULSE 62; RESP 18; TEMP 35.6; O2SAT 94
[2025-05-26 20:14] VITALS: BP 193/101; PULSE 62
[2025-05-27 00:29] VITALS: BMI 31.4
[2025-05-27 02:00] VITALS: BP 123/104; PULSE 68; RESP 18; TEMP 36.4; O2SAT 94
[2025-05-27 05:01] VITALS: BMI 31.4
[2025-05-27] MEDS: 0.9% Saline Lock 10 ML Syringe IV (05:57)
[2025-05-27 08:00] VITALS: BP 132/92; PULSE 80; RESP 18; TEMP 2.4; TEMP 36.4; O2SAT 94
[2025-05-27] MEDS: APIXABAN 5 MG TABLET PO (09:56)
[2025-05-27] MEDS: Furosemide 20 MG/2 ML VIAL IV (09:57)
[2025-05-27 09:59] VITALS: BP 132/92; PULSE 70
--- NOTE | 2025-05-27 11:28 | PCM.TXEXTCAR ---
Diet Diet Order/Speech Therapy: INPATIENT Hospital Diet / Speech Therapy Order(s) 05/22/25 22:45 Diet: Cardiac - Heart Healthy Food consistency:: Regular Liquid Consistency:: Regular/Thin Type of Dietary Supplement:: Ensure Plus High Protein Diet Comments: 240mL ensure plus HP w/ breakfast tray Routine Orders/Code Status Code Status: Full Code DC O2, CPAP, BIPAP needs Home O2 Discharge instructions: No Therapies Weight Bearing: Full weight bearing Physical Therapy: Eval and Treat Occupational Therapy: Eval and Treat Speech Therapy: Eval and Treat Problem/Diagnosis (1) Ischemic stroke: Status: Acute Code(s): I63.9 - Cerebral infarction, unspecified (2) Altered mental status: Status: Acute Code(s): R41.82 - Altered mental status, unspecified (3) Atrial fibrillation with rapid ventricular response: Status: Acute Code(s): I48.91 - Unspecified atrial fibrillation Plan 1. 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-continue Eliquis #3 essential hypertension-patient is on lisinopril, metoprolol, and amlodipine #4 prostate cancer-complicates care, management, recovery, and prognosis #5 right MCA ischemic stroke-neurology suggested the patient remain on anticoagulation, he is also on a statin presently, PT and OT will continue to see the patient Total clinical time spent by myself addressing the patient's medical issues, reviewing all of his data, and collaborating with patient's care team: 35 minutes Allergies/Procedures Done in Hospital Allergies sulfamethoxazole (From Bactrim) Adverse Reaction (Intermediate, Verified 05/22/25 17:07) Rash trimethoprim (From Bactrim) Adverse Reaction (Intermediate, Verified 05/22/25 17:07) Rash Procedures: 2-D Echocardiogram Type of Care/Length of Stay Estimated LOS: Convalescent Care Less Than 30 days Type of Care Needed: Acute Rehab Rehab Potential: Good Prognosis: Good Additional Orders/Day of Discharge H&P will serve as current which was dated: 05/22/25 Day of Discharge: 05/27/25 Dietary and Speech Recommendations Dietitian Recommendations/Changes: Will continue cardiac diet; FR as needed per physician. Will add 240mL ensure plus HP w/ breakfast tray as tolerated. Monitor blood glucose levels and restrict dietary carbohydrates as needed. Discharge Plan Admission Admit Date/Time: 05/22/25 19:47 Primary Reason for Your Visit: Acute stroke Attending Provider: Abel Saldivar Primary Care Provider: Abel Barrera Consulting Providers: Jonn Adams Discharge Orders/Prescriptions Prescriptions: New acetaminophen 325 mg Tablet 650 mg PO Q6H PRN PRN (Reason: Pain 1-10 Or Fever>100.7) Qty: 0 0RF atorvastatin 40 mg Tablet 40 mg PO QHS Qty: 0 0RF metoprolol tartrate 25 mg Tablet 25 mg PO BID Qty: 0 0RF furosemide [Lasix] 40 mg tablet 40 mg PO DAILY Qty: 1 0RF Continued Eliquis 5 mg tablet 5 mg PO BID 30 Days Qty: 60 0RF Discontinued amlodipine 10 mg tablet 10 mg PO QDAY lisinopril 40 MG tablet 40 mg PO DAILY calcium carbonate-vitamin D3 1 EACH tablet 1 ea PO BID No Action metoprolol tartrate 50 mg tablet 50 mg PO DAILY Referrals / Follow Up: Abel Barrera DO [Primary Care Provider] - Disposition Disposition (needs filled in before D/C Order can be placed): Inpatient Rehab Unit/Facility
--- NOTE | 2025-05-27 11:48 | DS.PCM_ITS ---
Providers Date of Admission: 05/22/25 Date of Discharge: 05/27/25 Primary Care Physician: Dr. Abel Barrera DO Reason For Visit: ALTERED MENTAL STATUS, AFIB W/RVR Diagnosis Discharge Diagnosis (1) Ischemic stroke: Status: Acute Code(s): I63.9 - Cerebral infarction, unspecified (2) Altered mental status: Status: Deleted Code(s): R41.82 - Altered mental status, unspecified (3) Atrial fibrillation with rapid ventricular response: Status: Deleted Code(s): I48.91 - Unspecified atrial fibrillation Plan 1. 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-continue Eliquis #3 essential hypertension-patient is on, metoprolol and furosemide #4 prostate cancer-complicates care, management, recovery, and prognosis #5 right MCA ischemic stroke-neurology suggested the patient remain on anticoagulation, he is also on a statin presently, PT and OT will continue to see the patient #6 elevated PSA-patient has a history of prostate cancer I do not feel the patient had congestive heart failure Total clinical time spent by myself addressing the patient's medical issues, reviewing all of his data, and collaborating with patient's care team: 35 minutes Medications at Discharge Home Medications apixaban 5 mg tablet (Eliquis) 5 mg PO BID Blood thinner 30 days #60 tabs 05/09/25 acetaminophen 325 mg tablet 650 mg (2 x 325 mg) PO Q6H PRN PRN Pain 1-10 Or Fever>100.7 #0 tabs 05/27/25 atorvastatin 40 mg tablet 40 mg PO QHS Cholestrol #0 tabs 05/27/25 furosemide 40 mg tablet (Lasix) 40 mg PO DAILY Fluid retention #1 TAB 05/27/25 metoprolol tartrate 25 mg tablet 25 mg PO BID BP #0 tabs 05/27/25 Hospital Course Operations None Procedures 2-D Echocardiogram Summary of Care Provided Minutes Spent on Discharge: 31 Hospital Course: This 75-year-old white male was seen in the emergency room at [facility] after being brought in for evaluation after he was found in his car without any pants on at his house. Patient was found by the police who were concerned that he had a medical problem brought him to the hospital for evaluation. On examination, patient was confused, he did not appear to be agitated, CBC was unremarkable, creatinine was elevated at 1.26, beta natruretic peptide was elevated at 4303, patient's talk screen was unremarkable, and his ethyl alcohol level was below 10.1. Brain CT showed no acute intracranial abnormality, chest x-ray showed cardiomegaly, no pleural effusions or evidence of acute pulmonary disease was noted. EKG was obtained and the patient was noted to be in A-fib with RVR with a rate in the 130s. Patient was given IV Cardizem and started on a Cardizem drip, he had been seen in the emergency room on 05/09/2025 and noted to be in atrial fibrillation at that time and was placed on Eliquis with follow-up at Dr. Echavarria's office. At that time his rate was well-controlled. Patient was admitted to PCU and he was placed on a beta- eugenie for rate control and his Eliquis was continued. Echocardiogram was obtained which showed a normal EF of 55%, an MRI of the brain was performed-the results were difficult for this examiner to understand and so teleneurology was consulted and saw the patient in consultation. It was felt that the patient had right MCA embolic strokes and it was recommended that he be continued on Eliquis. Patient was seen by PT OT and speech therapy, he was felt to benefit from skilled placement for short-term rehab services, patient agreed to this. The rehab unit at [facility] agreed to take the patient. On 05/27/2025, patient was seen and examined:alert, no apparent distress and healthy appearing General Appearance: cooperative, well kempt and well developed Orientation / Consciousness: awake, oriented to person and oriented to place HEENT normocephalic, head/scalp atraumatic and moist oral mucous membranes Eyes PERRL, EOMs intact bilaterally and conjunctivae normal Neck supple, no JVD, thyroid normal and no carotid bruits General: trachea midline Resp normal respiratory effort, no retractions, no use of accessory muscles and clear to auscultation bilaterally Auscultation: Negative for rales, rhonchi or wheezes Cardio S1 normal heart sound, S2 normal heart sound, no murmurs, no rub and no gallops Cardio Narrative: Heart rate and rhythm is irregular GI normal to inspection, nondistended, normoactive bowel sounds, soft to palpation, non-tender and non-distended Extremity no clubbing, cyanosis or edema Skin no rashes or lesions noted General Skin Exam: no breakdown Neuro CN's II-XII intact bilaterally, no focal motor deficits and no sensory deficits noted Neuro Narrative: Patient exhibits confusion Sensorium / Orientation: awake, alert, oriented to person and oriented to place Speech: speech normal Psych Psych Narrative: Patient exhibits confusion Patient was transferred to the rehab unit at [facility] on 05/27/2025 in stable condition. Weight / BMI Weight Weight: 102 kg Body Mass Index (BMI) 31.4 ABG / Lab / Microbiology Data 05/23/25 05:55 05/23/25 05:55 D/C Instructions DC O2, CPAP, BIPAP Needs Home O2 Discharge instructions: No Meaningful Use Info Meaningful Use Meaningful Use Diagnoses (Choose all that apply): Ischemic CVA CVA Therapy Assessed for PT,OT and/or ST?: Yes Ischemic Stroke Antithrombotic order at d/c?: Yes Dx of Atrial fib/flutter?: Yes Anticoagulant at discharge?: Yes Statins at discharge?: Yes Primary Dx Acute Ischemic CVA?: Yes IV thrombolytic ordered during stay?: No Discharge Plan Admission Admit Date/Time: 05/22/25 19:47 Primary Reason for Your Visit: Acute stroke Attending Provider: Abel Saldivar Primary Care Provider: Abel Barrera Consulting Providers: Jonn Adams Discharge Orders/Prescriptions Prescriptions: New acetaminophen 325 mg Tablet 650 mg PO Q6H PRN PRN (Reason: Pain 1-10 Or Fever>100.7) Qty: 0 0RF atorvastatin 40 mg Tablet 40 mg PO QHS Qty: 0 0RF metoprolol tartrate 25 mg Tablet 25 mg PO BID Qty: 0 0RF furosemide [Lasix] 40 mg tablet 40 mg PO DAILY Qty: 1 0RF Continued Eliquis 5 mg tablet 5 mg PO BID 30 Days Qty: 60 0RF Discontinued amlodipine 10 mg tablet 10 mg PO QDAY lisinopril 40 MG tablet 40 mg PO DAILY calcium carbonate-vitamin D3 1 EACH tablet 1 ea PO BID Referrals / Follow Up: Abel Barrera DO [Primary Care Provider] - Disposition Disposition (needs filled in before D/C Order can be placed): Inpatient Rehab Unit/Facility Charges/Coding Visit Charges Inpatient E&M: 09798 Disch Hosp >30min
[2025-05-27 14:51] VITALS: BP 117/77; PULSE 100; RESP 18; TEMP 36.9; O2SAT 98
== END 2025-05-27 15:02 | DRG 64 ==
LOC: ED 19:46 → PCU 05-23 07:12
PROVIDERS: Admitting Provider Hospitalist; Emergency Provider Emergency Medicine; PCP Family Medicine; Visit Provider Internal Medicine
DX: I63.411 Cerebral infarction due to embolism of right middle cerebral artery (principal); G93.41 Metabolic encephalopathy; C91.41 Hairy cell leukemia, in remission; I11.0 Hypertensive heart disease with heart failure; E66.811 Obesity, class 1; I48.91 Unspecified atrial fibrillation; G47.33 Obstructive sleep apnea (adult) (pediatric); R29.700 NIHSS score 0; R97.21 Rising PSA following treatment for malignant neoplasm of prostate; Z68.31 Body mass index [BMI] 31.0-31.9, adult; Z79.01 Long term (current) use of anticoagulants; Z79.899 Other long term (current) drug therapy; Z85.46 Personal history of malignant neoplasm of prostate
CPT/HCPCS: 36415; 70450; 70496; 70498; 70553; 71046; 74177; 80048; 80053; 80061; 80307; 81001; 82077; 82140; 83036; 83735; 83880; 84100; 84153; 84484; 85025; 85027; 85610; 92507; 92523; 93005; 93306; 94668; 94762; 97116; 97129; 97130; 97162; 97166; 97530; 97535; 97802; 99284; A9575; Q9957; Q9967; A4216; J1938

== ENCOUNTER 2025-05-27 15:25 | Inpatient (IN) | payer MEDICARE, OTHER, SELFPAY ==
[2019-08-22 13:32] VITALS: BMI 33.8
--- OUTSIDE RECORDS SUMMARY | 2025-05-27 15:34 | XMS RPT_ITS | CCD ---
Author Organization [facility] CliniSyva Care Team Providers Care Attic Blower Name Role Phone Dr. Lisset Barrera Primary Care Provider Dr. Lisset Barrera Referring Provider Dr. Chance Montemayor Attending Provider Dr. Lele Denis Attending Provider Dr. Lisset Barrera Primary Care Provider Dr. Lisset Barrera Referring Provider Austin SILVERMAN, LAMP ASSEMBLER-C Blanca Attending Provider [phone] Dr. Lisset Barrera Primary Care Provider Dr. Lisset Barrera Referring Provider [phone] Chance Montemayor Attending Provider [phone] Dr. Lisset Barrera DO Primary Care Provider Dr. Regan Guzman MD Attending Provider [phone] Dr. Regan Guzman MD Referring Provider [phone] Dr. Lisset Barrera DO Referring Provider Noah SILVERMAN-CJanessa Attending Provider Dr. Steven Hurst DO Emergency Provider Dr. Steven Hurst DO Attending Provider Dr. Nam Jaimes MD Emergency Provider Dr. Jonn Adams DO Admit Provider Dr. Jonn Adams DO Attending Provider Lisset Barrera Primary Care Unavailable Saud Echavarria Attending Unavailable Holly, Lisset Primary Care Unavailable Jonn Adams Admitting Unavailable Jonn Adams Attending Unavailable Jonn Adams Consulting Unavailable ThomasRegan Consulting Unavailable Holly, Lisset Primary Care Unavailable Holly, Lisset Referring Unavailable Lele Denis Attending Unavailable Regan Guzman Referring Unavailable ThomasRegan Attending Unavailable Holly, Lisset Primary Care Unavailable Holly, Lisset Primary Care Unavailable Brogan, Disha Referring Unavailable Brogan, Disha Attending Unavailable Holly, Lisset Primary Care Unavailable Steven Hurst Attending Unavailable Janna, Lisset Attending Unavailable Lisset Saldivar Consulting Unavailable King Brandon Consulting Unavailable Ruth Polanco Consulting Unavailable Deanna Handy Consulting Unavailable Sakina Le Consulting Unavailable Payton Wren Consulting Unavailable Madan Zacarias Consulting Unavailable Ofelia Dykes Consulting Unavailable Hugo Ricardo Consulting Unavailable Stephan Johnson Consulting Unavailable Siva Culp Consulting Unavailable Bre Stewart Consulting Unavailable Cb Chapa Consulting Unavailable Jahaira Reza Consulting Unavailable Desiree Bermudez Consulting Unavailable Sonam Almanza Jose Consulting UnavailVishnu Massey Consulting Unavailable Ontiveros, Rami Consulting Unavailable Brittany, Al Consulting Unavailable Khadra Cabezas Consulting Unavailable Abilio Pacheco Consulting Unavailable Kaiser Chacon Attending Unavailable Holly, Lisset Referring Unavailable Holly, Lisset Primary Care Unavailable Holly, Lisset Referring Unavailable Holly, Lisset Primary Care Unavailable Lele Denis Attending Unavailable Holly, Lisset Primary Care Unavailable Holly, Lisset Referring Unavailable Noah LAMP ASSEMBLER, Janessa Attending Unavailable Dr. Jonn Adams DO Other Provider Dr. Lisset Saldivar DO Attending Provider [phone] Dr. Saud Echavarria MD Attending Provider [phone] Dr. Lisset Saldivar DO Other Provider King Brandon MD Other Provider Unavailable Sherri CH, Dr. Miranda Other Provider Deanna Handy MD Other Provider Unavailable Dr. Sakina Le DO Other Provider Dr. Payton Wren MD Other Provider Rell CH, Dr. Hager Other Provider Donis CH, Dr. Gilbert Other Provider Haleigh CH, Dr. Arias Other Provider Alex CH, Dr. Rothman Other Provider Robbi CH, Dr. Paniagua Other Provider Bre Stewart MD Other Provider Eduard CH, Dr. Vivar Other Provider Juaquin CH, Dr. Campo Other Provider Aidan CH, Dr. Ramírez Other Provider Cami CH, Dr. Sonam Garcia Other Provider Delroy CH, Dr. Mares Other Provider Rama CH, Dr. Lam Other Provider Brittany CH, Dr. Melendez Other Provider Raulito CH, Dr. Gaviria Other Provider Unavailable Junior CH, Yousef Other Provider Unavailable Allergies Allergy Classification Reported Allergen(s) Allergy Type Date of Onset Reaction(s) Facility (8 sources) Sulfamethoxazole Drug Allergy [address] [facility] (8 sources) Trimethoprim Drug Allergy [address] [facility] (1 source) Sulfamethoxazole Drug Allergy 5 [facility] (1 source) Trimethoprim Drug Allergy 5 [facility] Medications Current Medications Medication Drug Class(es) Dates Sig (Normalized) Sig (Original) acetaminophen 325 mg oral tablet (1 source) Start: 05-27-2025 take 1-10 tablets by mouth every six hours as needed for pain Acetaminophen 325 mg Tablet Active 650 mg PO EVERY 6 HOURS NEEDED as needed for Pain 1-10 Or Fever>100.7 0 0 May 27, 2025 12:00am apixaban 5 mg oral tablet (3 sources) Factor Xa Inhibitor Start: 05-09-2025 take 1 tablet by mouth twice daily Apixaban (Eliquis) 5 mg tablet Active 5 mg PO TWICE A DAY 60 30 0 May 09, 2025 12:00am atorvastatin 40 mg oral tablet (1 source) HMG-CoA Reductase Inhibitor Start: 05-27-2025 take 1 tablet by mouth at bedtime Atorvastatin 40 mg Tablet Active 40 mg PO AT BEDTIME 0 0 May 27, 2025 12:00am furosemide 40 mg oral tablet (1 source) Loop Diuretic Start: 05-27-2025 take 1 tablet by mouth once daily Furosemide (Lasix) 40 mg tablet Active 40 mg PO DAILY 1 0 May 27, 2025 12:00am metoprolol tartrate 25 mg oral tablet (13 sources) beta-Adrenergic Eugenie Start: 05-27-2025 take 1 tablet by mouth twice daily Metoprolol Tartrate 25 mg Tablet Active 25 mg PO TWICE A DAY 0 0 May 27, 2025 12:00am Start: 04-26-2024 take 1 tablet by parviz th once daily Metoprolol Tartrate 50 mg tablet Active 50 mg PO DAILY April 26, 2024 12:00am Start: 12-09-2015 End: 04-26-2024 take 1 tablet by mouth twice daily Metoprolol Tartrate 25 MG tablet Discontinued 25 mg PO TWICE A DAY December 09, 2015 1:00am April 26, 2024 8:46am bp Completed/Discontinued Medications Medication Drug Class(es) Dates Sig (Normalized) Sig (Original) acetaminophen 325 mg / HYDROcodone bitartrate 5 mg oral tablet (8 sources) Opioid Agonist Start: 02-10-2019 End: 02-12-2019 Hydrocodone-Acetamino phen 1 TABLET tablet Discontinued 1 {tbl} PO EVERY 6 HOURS NEEDED as needed for Pain 5 2 0 February 10, 2019 12:00am February 11, 2019 12:00am February 12, 2019 12:09am Postoperative pain Other acute postprocedural pain Start: 02-10-2019 End: 02-12-2019 take 1 tablet by mouth every six hours as needed Hydrocodone-Acetaminophen Discontinued 1 TABLET PO EVERY 6 HOURS NEEDED 5 2 February 10, 2019 12:00am February 12, 2019 12:09am amLODIPine 10 mg oral tablet (20 sources) Dihydropyridine Calcium Channel Eugenie Start: 05-09-2025 End: 05-27-2025 take 1 tablet by mouth once daily Amlodipine 10 mg tablet Discontinued 10 mg PO daily May 09, 2025 12:00am May 27, 2025 11:35am Start: 01-03-2018 End: 05-09-2025 take 2 tablets by mouth once daily Amlodipine 5 MG tablet Discontinued 10 mg PO DAILY January 03, 2018 11:41am May 09, 2025 9:02am bp Start: 01-03-2018 take 10 mg by mouth once daily Amlodipine Active 10 MG PO DAILY January 03, 2018 11:41am Start: 02-18-2016 End: 01-03-2018 take 1 tablet by mouth once daily Amlodipine 5 MG tablet Discontinued 5 mg PO DAILY February 18, 2016 12:00am January 03, 2018 11:41am calcium carbonate 625 mg / cholecalciferol 125 unt oral tablet (8 sources) Vitamin D Start: 10-29-2020 End: 05-27-2025 Calcium Carbonate-Vitamin D3 1 EACH tablet Discontinued 1 NMA PO TWICE A DAY October 29, 2020 1:00am May 27, 2025 11:36am Start: 10-29-2020 Calcium Carbon ate-Vitamin D3 1 EACH tablet Active 1 NMA PO DAILY October 29, 2020 1:00am Start: 10-29-2020 Calcium Carbon ate-Vitamin D3 Active 1 EACH PO DAILY October 29, 2020 1:00am lidocaine 25 mg/ml / prilocaine 25 mg/ml topical cream (8 sources) Antiarrhythmic, Amide Local Anesthetic Start: 02-14-2019 End: 06-17-2019 Lidocaine-Prilocaine 30 GM Cream..G. Discontinued 1 APPLICATIO TP DAILY as needed for Not Specified February 14, 2019 10:43am June 13, 2019 12:00am June 17, 2019 12:08am Malignant neoplasm of prostate Malignant neoplasm of prostate Start: 02-14-2019 End: 06-17-2019 Lidocaine-Prilocaine Discont inued 1 APPLICATIO TP DAILY 12 14February 14, 2019 10:43am June 17, 2019 12:08am lisinopril 40 mg oral tablet (8 sources) Angiotensin Converting Enzyme Inhibitor Start: 12-09-2015 End: 05-27-2025 take 1 tablet by mouth once daily Lisinopril 40 MG tablet Discontinued 40 mg PO DAILY December 09, 2015 1:00am May 27, 2025 11:36am bp ondansetron 8 mg disintegrating oral tablet (8 sources) Serotonin-3 Receptor Antagonist Start: 02-14-2019 End: 03-26-2019 take 1 tablet by mouth every eight hours as needed for nausea Ondansetron 8 MG Tab.Rapdis Discontinued 8 mg PO EVERY 8 HOURS NEEDED as needed for Nausea 30 10 3 February 14, 2019 12:00am March 25, 2019 12:00am March 26, 2019 12:07am Chemotherapy-induced nausea and vomiting Malignant neoplasm of prostate Nausea with vomiting, unspecified Malignant neoplasm of prostate prochlorperazine 10 mg oral tablet (8 sources) Phenothiazine Start: 02-14-2019 End: 03-16-2019 take 1 tablet by mouth every six hours as needed for nausea Prochlorperazine Maleate 10 MG tablet Discontinued 10 mg PO EVERY 6 HOURS NEEDED as needed for Nausea 30 10 2 February 14, 2019 10:43am March 15, 2019 12:00am March 16, 2019 12:08am Chemotherapy-induced nausea and vomiting Malignant neoplasm of prostate Nausea with vomiting, unspecified Malignant neoplasm of prostate Problems Active Problems Problem Classification Problem Date Documented Date Episodic/Chronic Acute cerebrovascular disease (3 sources) Cerebral infarction, unspecified; Translations: [Ischemic stroke] Onset: 05-26-2025 05-26-2025 Chronic Administrative/social admission (11 sources) Patient encounter status; Translations: [Counseling, unspecified] Episodic Calculus of urinary tract (8 sources) Kidney stone; Translations: [Calculus of kidney] 01-02-2020 Episodic Cancer of prostate (20 sources) Primary malignant neoplasm of prostate; Translations: [Malignant neoplasm of prostate] Onset: 08-09-2024 Chronic Comment on above: Prostate cancer, sta ge IV(cTx cN1 cM1b) retroperitoneal adenopathy and bones.CT on 04/07/2022 shows stable small abdominal nodes.Comes for follow up. Bone scan 08/03/2022 showed no evidence of metastatic disease. Cardiac dysrhythmias (16 sources) Irregular heart beat; Translations: [Cardiac arrhythmia, unspecified] Onset: 05-26-2025 05-09-2025 Chronic Cardiac dysrhythmias (1 source) Palpitations; Translations: [Palpitations] Onset: 05-14-2025 Episodic Deficiency and other anemia (8 sources) Pancytopenia; Translations: [Other pancytopenia] 01-02-2020 Chronic Diseases of white blood cells (16 sources) Agranulocytosis; Translations: [Agranulocytosis secondary to cancer chemotherapy] 01-02-2020 Chronic Essential hypertension (8 sources) Hypertensive disorder; Translations: [Essential (primary) hypertension] 04-20-2019 Chronic Genitourinary symptoms and ill-defined conditions (16 sources) Blood in urine; Translations: [Hematuria, unspecified] 01-02-2020 Episodic Leukemias (19 sources) Hairy cell leukemia (clinical); Translations: [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) drug therapy] 01-02-2020 Episodic Other non-epithelial cancer of skin (8 sources) Basal cell carcinoma of nose; Translations: [Basal cell carcinoma of skin of nose] 01-02-2020 Episodic Comment on above: Removed 05/2016 Other nutritional; endocrine; and metabolic disorders (11 sources) Obesity; Translations: [Obesity, unspecified] 04-20-2019 Chronic Other nutritional; endocrine; and metabolic disorders (2 sources) Obesity, unspecified; Translations: [Obesity, unspecified] Chronic Other screening for suspected conditions (not mental disorders or infectious disease) (11 sources) Raised prostate specific antigen; Translations: [Elevated prostate specific antigen [PSA]] Episodic Residual codes; unclassified (11 sources) Obstructive sleep apnea syndrome; Translations: [Obstructive sleep apnea (adult) (pediatric)] 01-02-2020 Chronic Residual codes; unclassified (8 sources) Sleep apnea; Translations: [Sleep apnea, unspecified] 04-20-2019 Chronic Residual codes; unclassified (2 sources) Obstructive sleep apnea (adult) (pediatric); Translations: [Obstructive sleep apnea (adult)(pediatric)] Chronic Residual codes; unclassified (8 sources) Past history of procedure; Translations: [Other specified postprocedural states] 01-02-2020 Episodic Comment on above: 01/24/19 Residual codes; unclassified (3 sources) Other specified postprocedural states; Translations: [Personal history of surgery to other organs] Episodic Residual codes; unclassified (4 sources) Disturbance of consciousness; Translations: [Transient alteration of awareness] 05-22-2025 Episodic Residual codes; unclassified (1 source) Altered mental status, unspecified; Translations: [Altered mental status, unspecified] Onset: 05-26-2025 Episodic Residual codes; unclassified (2 sources) Altered mental status; Translations: [Altered mental status, unspecified] 05-22-2025 Episodic Secondary malignancies (1 source) Secondary malignant [...] unspecified; Translations: [Hyperglycemia, unspecified] Onset: 08-09-2024 Episodic Unclassified (8 sources) Fatty liver disease 06-04-2022 Results Test Name Value Interpretation Reference Range Facility CTA Head AND Neck W/ Contras ton 05-24-2025 CTA Head AND Neck W/ Contrast [facility] Imaging Services [address] [place] [address] [id number] CTA Head AND Neck W/ Contrast MR#: [id number] Acct: [id number] Name: LISSET FARMER Rep #: [id number] : 1950 M 75 From: Tre duke MD PCP: Dr. Lisset Barrera DO Status: ADM IN Study: CTA Head AND Neck W/ Contrast Date of Exam: Exam# [id number] Ordering Dr: Lisset Saldivar DO PROCEDURE: CTA HEAD AND NECK W/ CONTRAST 05/24/2025 REASON FOR EXAM: STROKE TECHNIQUE: CTA HEAD AND NECK W/ CONTRAST Multiplanar Sagittal and Coronal images were obtained. 3D post processing was performed CONTRAST: Isovue-300 VOLUME: 100 mL One or more dose reduction techniques were used (e.g., Automated exposure control, adjustment of the mA and/or kV according to patient size, use of iterative reconstruction technique). RADIATION DOSE SUMMARY: CTDlvol: 34 mGy DLP: 1644.45 mGycm COMPARISON: Prior unenhanced CT scan of the head dated May 23, 2025. FINDINGS: Aortic Arch: Normal size and branching pattern. No significant atherosclerotic plaque. Brachiocephalic and Subclavians: Mild atherosclerotic plaque without significant stenosis. RIGHT Carotid: Right CCA: Unremarkable. Right ICA: Mild calcified and soft plaque. Maximum stenosis (NASCET): <50 % Right ECA: Unremarkable. LEFT Carotid: Left CCA: Unremarkable. Left ICA: Mild calcified and soft plaque. Maximum stenosis (NASCET): <50 % Left ECA: Unremarkable. Vertebrals: Dominant right vertebral artery. RIGHT Vertebral: Unremarkable. LEFT Vertebral: Unremarkable. Anatomy: [place] anatomy is normal. Aneurysm or avm: No intracranial aneurysms or large vascular malformations are identified. Anterior cerebral arteries: Unremarkable: Middle cerebral arteries: Unremarkable. Basilar artery: Unremarkable. Posterior cerebral arteries: Unremarkable. Other major branches of the posterior circulation: Unremarkable. Major venous structures: Unremarkable. Other findings: Neck: Lungs: Bones: CT/CTA Head AND Neck W/ Contrast IMPRESSION: Minimal plaque at the origin of the right and left internal carotid arteries. No significant stenosis seen. Reading Location: [place] [address] CC: Dr. Lisset Barrera DO; Dr. Lisset Saldivar DO Senior Manufacturing Test Engineer: Signed Normal [facility] Calculated very low density lipoprotein (VLDL) cholesterol measurementOrdered By: Lisset Saldivar on 05-24-2025 Calculated very low density lipoprotein (VLDL) cholesterol measurement 14 mg/dL 5-40 [facility] Electrocardiogram reportOrde red By: Saud Echavarria on 05-24-2025 EKG study [facility] Cardiovascular Services [address] [place] [address] 12 Lead EKG 05/23/25 0245 MR#: [id number] Acct: [id number] Name: LISSET FARMER Rep #:[id number] : 1950 75 From: Saud Echavarria MD Attending Dr: Dr. Lisset Saldivar DO Status: ADM IN Ordering Dr: Jonn Adams DO Da te: 05/23/25 Location: U Sex: M C Admitted: 05/22/25 Test Reason : RHYTHM CHANGE Blood Pressure : */* mmHG Vent. Rate : 75 BPM Atrial Rate : * BPM P-R Int : * ms QRS Dur : 96 ms QT Int : 436 ms P-R-T Axes : * -9 192 degrees QTcB Int : [address] & T wave abnormality, consider anterolateral ischemia Prolonged QT Abnormal ECG When compared with ECG of 22-May-2025 17:52, MANUAL COMPARISON REQUIRED DATA IS UNCONFIRMED Confirmed by SAUD ECHAVARRIA MD ([id number]), videotape editor PEG AUGUSTIN ([id number]) on 05/24/2025 6:42:03 AM Referred By: Confirmed By: SAUD ECHAVARRIA MD 05/24/25 0642 Date _ Saud Echavarria MD CC: Dr. Jonn Adams, ; Dr. Lisset Barrera, ; Dr. Lisset Saldivar DO~ Signed [facility] Work Phone: EKG study [facility] Cardiovascular Services [address] [place] [address] 12 Lead EKG 05/22/25 1752 MR#: [id number] Acct: [id number] Name: LISSET FARMER Rep #:[id number] : 1950 75 From: Saud Echavarria MD Attending Dr: Dr. Lisset Saldivar DO Status: ADM IN Ordering Dr: Nam Jaimes MD Date: 07/09 Location: [facility] Sex: M C Admitted: 05/22/25 Test Reason : Blood Pressure : */* mmHG Vent. Rate : 133 BPM Atrial Rate : * BPM P-R Int : * ms QRS Dur : 94 ms QT Int : 338 ms P-R-T Axes : * -15 167 degrees QTcB Int : 503 ms Atrial fibrillation with rapid ventricular response Inferior infarct , age undetermined Abnormal ECG Confirmed by SAUD ECHAVARRIA MD ([id number]), videotape editor PEG AUGUSTIN ([id number]) on 05/24/2025 6:35:47 AM Referred By: Confirmed By: SAUD ECHAVARRIA MD 07/10/25 0635 Date _ Saud Echavarria MD CC: Dr. Nam Jaimes MD; Dr. Lisset Barrera DO; Dr. Lisset Saldivar DO ~ Signed [facility] Work Phone: LDL calc ser/plasOrdered By: Lisset Saldivar on 05-24-2025 Cholesterol in LDL [Mass/Vol] 99 mg/dL [facility] Comment on above: Luswbkidgr=898-369 m g/dL & Higher Rmlw=039 mg/dL or greater Lipid Profileon 05-24-2025 CHOL:HDL 3.61 Normal [facility] Comment on above: Performed By: #### L 499.0043 #### [facility] [address] [place], [address] (693) Cholesterol [Mass/Vol] 156 mg/dL Normal <=200 [facility] Comment on above: Result Comment: Chol esterol level, Desirable <200 mg/dL Borderline high cholesterol 200-239 mg/dL High cholesterol >=240 mg/dL Recommendations of the NCEP Adult Treatment Panel for the following risk-cutoff thresholds for the [place] population. Performed By: #### L 499.0043 #### [facility] [address] [place], [address] Cholesterol in HDL [Mass/Vol] 43 mg/dL Normal [facility] Comment on above: Result Comment: [place] onal Cholesterol Education Program (NCEP) guidelines: <40 mg/dL: Low HDL-cholesterol (major risk factor for CHD) >= 60 mg/dL: High HDL-cholesterol (negative risk factor for CHD) HDL-cholesterol is affected by a number of factors, e.g. smoking, exercise, hormones, sex and age. Performed By: #### L [id number] #### [facility] [address] [place], [address] Cholesterol in LDL [Mass/Vol] 99 mg/dL Normal [facility] Comment on above: Result Comment: Bord bvsxjl=588-327 mg/dL Higher Kqxi=274 mg/dL or greater Performed By: #### L 499.0043 #### [facility] [address] [place], [place], [address] Cholesterol in VLDL [Mass/Vol] 14 mg/dL Normal 5-40 [facility] Comment on above: Performed By: #### L 499.0043 #### [facility] [address] [place], [address] Triglyceride [Mass/Vol] 70 mg/dL Normal [facility] Comment on above: Result Comment: The drugs N-Acetylcysteine and Metamizole may falsely depress this assay. Normal range: <150 mg/dL Borderline High: 150-199 mg/dL High: 200-499 mg/dL Very High: >500 mg/dL Performed By: #### L [id number] #### [facility] [address] [place], [address] MR/CON.PCM.NEon 05-24-2025 MR/CON.PCM.NE [facility] Medical Records Department [address] [place] [address] Consultation - Neurology 05/24/25 1253 MR#: [id number] Acct: [id number] Name: LISSET FARMER Rep #: [id number] : 1950 75 From: Khadra Cabezas MD PCP: Dr. Lisset Barrera, DO Status:ADM IN [facility] Assessment and Plan: Stroke Assessment/Plan LISSET FARMER, is a 75 RH M with history of prostate CA, leukemia, newly diagnosed Afib (05/09/25 started on eliquis but reports he was never able to get if filled, so he hadnt started taking it yet), and KATHY who on 05/22/25 was found in his care without pants at his home, confused, and was brought in to ER by police. CT brain negative. 05/23/25 MRI [facility] brain shows scattered right MCA infarcts. TTE EF 55%. He is on eliquis. Neurological examination shows nonfocal exam, NIHSS-0. ASSESSMENT/PLAN: Acute right MCA ischemic stroke, post stroke day #2. Stroke mechanism is likely cardioembolic due to Afib. 1) Recommend stroke work-up including CTA head/neck 2) Recommend completing stroke order sets including LDL, HgA1c, and PT/OT consults, etc. 2) If LDL < 100, recommend adding Lipitor. 3) Agree with eliquis for stroke prevention 4) Will review CTA when completed. 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 In ER, CT brain negative. He was admitted. 05/23/25 MRI [facility] brain shows scattered right MCA infarcts. TTE EF 55%. He is on eliquis. Today the patient reports he feels at baseline, denies confusion currently. 130/97. [facility] Medical History Prostate cancer Elevated PSA Kidney stones Hematuria Pancytopenia High risk medication use KATHY (obstructive sleep apnea) Fatty liver disease Agranulocytosis secondary to cancer chemotherapy Drug induced neutropenia Hairy cell leukemia Obesity Hypertension Sleep apnea Home Medications ???Medication ???Instructions ???Recorded ???Last Taken ???Type lisinopril 40 mg tablet 40 mg PO DAILY bp 12/09/1505/09/ 5 History calcium 250 mg (as 1 ea PO BID 10/29/20 05/09/25 Hist ory carbonate)-vitamin D3 3.125 mcg (125 unit) tablet metoprolol tartrate 50 mg tablet 50 mg PO DAILY 04/26/24 05/09/25 H istory amlodipine 10 mg tablet 10 mg PO QDAY 05/09/25 05/09/25 Hi story apixaban 5 mg tablet (Eliquis) 5 mg PO BID 30 days #60 tabs 05/09 Unknown Rx Allergy/AdvReac Type Severity Reaction Status Date / Time sulfamethoxazole (From AdvReac Intermediate Rash Verified 05/22/25 17:07 Bactrim) trimethoprim (From Bactrim) AdvReac Intermediate Rash Verified 05/22/25 17:07 Family History Mother Hypertension CVA (cerebral vascular accident) Breast cancer Sister CVA (cerebral vascular accident) Surgical History History of prostate biopsy Basal cell carcinoma of nose Social History household members: none Smoking Status: Never smoker second hand exposure: No alcohol intake: never substance use type: does not use Vital Signs Vital Signs Vital Signs: 05/23/25 13:00 05/23/25 14:00 05/23/25 15:04 Temperature 97.5 F L Temperature Source Temporal Pulse Rate 82 76 77 Pulse Strength Respiratory Rate 20 H 16 21 H Respiratory Effort Respiratory Depth Respiratory Pattern Blood Pressure 113/92 H 129/103 H 124/74 H Blood Pressure Mean 99 111 90 Blood Pressure Source Monitor Monitor Monitor Blood Pressure Position Semi-Fowlers Semi-Fowlers Semi-Fowlers Blood Pressure Location Left Arm Left Arm Left Arm Pulse Ox 92 93 92 Oxygen Delivery Method Room Air Room Air Room Air 05/23/25 15:05 05/23/25 16:00 05/23/25 17:00 Temperature Temperature Source Pulse Rate 65 82 Pulse Strength Respiratory Rate 17 22 H Respiratory Effort Normal Non-Labored Respiratory Depth Normal Respiratory Pattern Normal Blood Pressure 115/92 H 129/82 H Blood Pressure Mean 99 97 Blood Pressure Source Monitor Monitor Blood Pressure Position Semi-Fowlers Semi-Fowlers Blood Pressure Location Left Arm Left Arm Pulse Ox 95 92 Oxygen Delivery Method Room Air Room Air Room Air 05/23/25 17:00 05/23/25 17:02 05/23/25 20:43 Temperature 97.5 F L 96.4 F L Temperature Source Te (more content not included)... Normal [facility] PSA Serial Monitoron 025 PSA, TOTAL 49.7 ng/mL Abnormal 0.0-4.0 [facility] Comment on above: Result Comment: Roch e ECLIA methodology. According to the [place] [employer], Serum PSA should decrease and remain at undetectable levels after radical prostatectomy. The AUA defines biochemical recurrence as an initial PSA value 0.2 ng/mL or greater followed by a subsequent confirmatory PSA value 0.2 ng/mL or greater. Values obtained with different assay methods or kits cannot be used interchangeably. Results cannot be interpreted as absolute evidence of the presence or absence of malignant disease. Performed at: [address] [id number] Telephone Solicitor Supervisor: Sean Emmanuel PhD, Phone: [phone] Performed By: #### L 499.0043 #### [facility] Laboratory [address] [place], [address] Screening total cholesterol/ high density lipoprotein (HDL) cholesterol ratioOrdered By: Lisset Saldivar on 05-24-2025 Cholesterol.total/Choles terol in HDL [Mass ratio] 3.61 {ratio} [facility] Serum or plasma cholesterol in HDL measurement (mass/volume)Ordered By: Lisset Saldivar on 05-24-2025 Cholesterol in HDL [Mass/Vol] 43 mg/dL >40 [facility] Comment on above: National Cholesterol Education Program (NCEP) guidelines:<40 mg/dL: Low HDL-cholesterol (major risk factor for CHD)>= 60 mg/dL: High HDL-cholesterol (negative risk factor for CHD)HDL-cholesterol is affected by a number of factors, e.g. smoking, exercise, hormones, sex and age. Serum or plasma cholesterol measurement (mass/volume)Ordered By: Lisset Saldivar on 05-24-2025 Cholesterol [Mass/Vol] 156 mg/dL <201 [facility] Comment on above: Cholesterol level, D esirable <200 mg/dLBorderline high cholesterol 200-239 mg/dLHigh cholesterol >=240 mg/dLRecommendations of the NCEP Adult Treatment Panel for the following risk-cutoff thresholds for the [place] population. Triglycerides measurementOrd ered By: Lisset Saldivar on 05-24-2025 Triglyceride [Mass/Vol] 70 mg/dL <199 [facility] Comment on above: The drugs N-Acetylcy steine and Metamizole may falsely depress this assay. Normal range: <150 mg/dLBorderline High: 150-199 mg/dLHigh: 200-499 mg/dLVery High: >500 mg/dL 12 Lead EKGon 05-23-2025 12 Lead EKG [facility] Cardiovascular Services [address] [place] [address] 12 Lead EKG 05/23/25 0245 MR#: [id number] Acct: [id number] Name: LISSET FARMER Rep #: [id number] : 1950 75 From: Saud Echavarria MD Attending Dr: Dr. Lisset Saldivar DO Status: A DM IN Ordering Dr: Jonn Adams DO Date: 05/23/25 Location: [facility] Sex: M C Admitted: 05/22/25 Test Reason : RHYTHM CHANGE Blood Pressure : */* mmHG Vent. Rate : 75 BPM Atrial Rate : * BPM P-R Int : * ms QRS Dur : 96 ms QT Int : 436 ms P-R-T Axes : * -9 192 degrees QTcB Int : [address] T wave abnormality, consider anterolateral ischemia Prolonged QT Abnormal ECG When compared with ECG of 22-May-2025 17:52, MANUAL COMPARISON REQUIRED DATA IS UNCONFIRMED Confirmed by CHARY CH, SAUD ([id number]), videotape editor PEG AUGUSTIN ([id number]) on 05/24/2025 6:42:03 AM Referred By: Confirmed By: SAUD ECHAVARRIA MD 05/24/25 0642 Date Saud Echavarria MD CC: Dr. Jonn Adams DO; Dr. Lisset Barrera DO; Dr. Lisset Saldviar DO Signed Normal [facility] Anion gap in Serum or Plasma Ordered By: Jonn Adams on 05-23-2025 Anion gap [Moles/Vol] 11 mmol/L - [facility] BUN/creatinine ratioOrdered By: Jonn Adams on 05-23-2025 Urea nitrogen/Creatinine [Mass ratio] 12.3 mg/mg - [facility] Basic Metabolic Profile (BMP )on 05-23-2025 BUN/CRE 12.3 RATIO Normal 10-20 [facility] Comment on above: Performed By: #### L 499.0043 #### [facility] [address] [place], [address] Calcium [Mass/Vol] 9.4 mg/dL Normal 7.6-11.0 [facility] Comment on above: Performed By: #### L 499.0043 #### [facility] [address] [place], [address] Chloride [Moles/Vol] 105 mmol/L Normal 98-108 [facility] Comment on above: Performed By: #### L 499.0043 #### [facility] [address] [place], [address] CO2 [Moles/Vol] 27.0 mmol/L Normal 21.0-32.0 [facility] Comment on above: Performed By: #### L 499.0043 #### [facility] [address] [place], [address] Creatinine [Mass/Vol] 1.16 mg/dL Normal 0.70-1.20 [facility] Comment on above: Performed By: #### L 499.0043 #### [facility] [address] [place], [address] ECRCL 67.07 ml/min Normal 50-250 [facility] Comment on above: Performed By: #### L 499.0043 #### [facility] [address] [place], [address] GAP 11 Normal 5-15 [facility] Comment on above: Performed By: #### L 499.0043 #### [facility] [address] [place], [address] GFR/1.73 sq M.predicted among non-blacks MDRD (S/P/Bld) [Vol rate/Area] 66 mL/min/{1.73_m2} Normal >60 [facility] Comment on above: Result Comment: mL/m in/1.73m2 CKD-EPI Creatinine Equation (2020) Performed By: #### L 499.0043 #### [facility] [address] [place], [address] Glucose [Mass/Vol] 111 mg/dL High 70-99 [facility] Comment on above: Performed By: #### L 499.0043 #### [facility] [address] [place], [address] Potassium [Moles/Vol] 3.8 mmol/L Normal 3.3-5.1 [facility] Comment on above: Performed By: #### L 499.0043 #### [facility] [address] [place], [address] Sodium [Moles/Vol] 142 mmol/L Normal 133-145 [facility] Comment on above: Performed By: #### L 499.0043 #### [facility] [address] [place], [address] Urea nitrogen [Mass/Vol] 14 mg/dL Normal 4-19 [facility] Comment on above: Performed By: #### L 499.0043 #### [facility] [address] [place], [address] Brain W/WO Contraston 2024 Brain W/WO Contrast [facility] Imaging Services [address] [place] [address] Brain W/WO Contrast MR#: [id number] Acct: [id number] Name: LISSET FARMER Rep #: [id number] : 1950 M 75 From: Otilio Zuniga MD PCP: Dr. Lisset Barrera DO Status: ADM IN Study: Brain W/WO Contrast Date of Exam: 05/23/25 Exam# [id number] Ordering Dr: Jonn Adams DO PROCEDURE: BRAIN W/WO CONTRAST 05/23/2025 REASON FOR EXAM: AMS W/ CANCER HX, EVAL FOR METS. Hairy cell leukemia and prostate cancer. TECHNIQUE: BRAIN W/WO CONTRAST Multiplanar and multisequence images were obtained. CONTRAST: Clariscan VOLUME: 20 mL COMPARISON: CT head without contrast, 05/22/2025. FINDINGS: There is patchy gyriform diffusion restriction in the right parietal lobe, posteriorly. Unfortunately, the postcontrast T1 images are degraded by patient motion artifact. There are chronic lacunar infarctions in the periventricular white matter of the left frontal and occipital lobes. Additionally there are foci of abnormal periventricular and subcortical white matter signal consistent with chronic ischemic white matter disease. There is mild diffuse cerebral atrophy with concomitant ventriculomegaly. The basilar cisterns are normal. There are normal flow voids demonstrated in the recognized intracranial vessels. As previously noted, the basilar and proximal middle cerebral arteries appear dolichoectatic. The cerebellum and brainstem are unremarkable. The cerebellar pontine angles are normal. The craniovertebral junction is normal. The sella and suprasellar regions are normal. The orbits and retro-orbital regions are unremarkable. The nasal septum is midline. There is no significant paranasal sinus disease. The mastoid air cells are clear. There is normal bone marrow signal in the skull base and calvarium. MRI/Brain W/WO Contrast IMPRESSION: 1. Patchy gyriform diffusion restriction in the right parietal lobe, posteriorly. This is in the area of the posterior watershed, and could be reversible ischemia, so-called reversible cerebral vasoconstriction syndrome, or acute infarction. Tumor is less likely. 2. There are no foci of abnormal intracranial contrast enhancement to suggest metastatic disease. However, the postcontrast images are degraded by patient motion artifact. 3. Cerebral atrophy. 4. Other findings as noted. Reading Location: [id number] CC: Dr. Jonn Adams, DO; Dr. Lisset Barrera DO Senior Manufacturing Test Engineer: Signed Normal [facility] CBC-Complete Blood Cnt No Di ffon 05-23-2025 Erythrocyte distribution width (RBC) [Ratio] 14.8 % High 11.6-14.6 [facility] Comment on above: Performed By: #### L 499.0043 #### [facility] [address] [place], [address] Hematocrit (Bld) [Volume fraction] 39.0 % Low 40-54 [facility] Comment on above: Performed By: #### L 499.0043 #### [facility] [address] [place], [address] Hemoglobin (Bld) [Mass/Vol] 12.6 g/dL Low 13.0-16.5 [facility] Comment on above: Performed By: #### L 499.0043 #### [facility] [address] [place], [address] MCH (RBC) [Entitic mass] 28.9 pg Normal 27.0-32.0 [facility] Comment on above: Performed By: #### L 499.0043 #### [facility] [address] [place], [address] MCHC (RBC) [Mass/Vol] 32.3 g/dL Normal 32-36 [facility] Comment on above: Performed By: #### L 499.0043 #### [facility] [address] [place], [address] MCV (RBC) [Entitic vol] 89.4 fL Normal 80-94 [facility] Comment on above: Performed By: #### L 499.0043 #### [facility] [address] [place], [address] Platelet mean volume (Bld) [Entitic vol] 11.0 fL Normal 6.2-12.0 [facility] Comment on above: Performed By: #### L 499.0043 #### [facility] [address] [place], [address] Platelets (Bld) [#/Vol] 193 10*3/uL Normal 150-450 [facility] Comment on above: Performed By: #### L 499.0043 #### [facility] [address] [place], [address] RBC (Bld) [#/Vol] 4.36 10*6/uL Low 4.6-6.2 [facility] Comment on above: Performed By: #### L 499.0043 #### [facility] [address] [place], [address] RDW SD 48.9 fl High 35.1-43.9 [facility] Comment on above: Performed By: #### L 499.0043 #### [facility] [address] [place], [address] WBC (Bld) [#/Vol] 5.7 10*3/uL Normal 4.4-11.0 [facility] Comment on above: Performed By: #### L 499.0043 #### [facility] [address] [place], [address] Carbon dioxide, total [Moles /volume] in Central venous bloodOrdered By: Jonn Adams on 05-23-2025 CO2 [Moles/Vol] 27.0 mmol/L 21.0-32.0 [facility] Chloride assayOrdered By: Denis Adams on 05-23-2025 Chloride [Moles/Vol] 105 mmol/L 98-108 [facility] Echocardiogram study reportO rdered By: Saud Echavarria on 05-23-2025 Study report [facility] Cardiovascular Services [address] [place] [address] Echo Complete 05/23/25 0311 MR#: [id number] Acct: [id number] Name: LISSET FARMER Rep #:[id number] : 1950 75 From: Saud Adams Attending Dr: Dr. Lisset Saldivar, Status: ADM IN Ordering Dr: Jonn Adams DO Da te: 05/22/25 Location: [facility] Sex: M C Admitted: 05/22/25 Reason For Study Reason For Study: ATRIAL FIBRILLATION Procedure This was a 2D Doppler, Color Flow transthoracic echocardiogram. Exam performed portable in patient room. Left Ventricle Normal LV size. Mild concentric left ventricular hypertrophy. Left ventricular systolic function is normal. The left ventricular ejection fraction is 55 %. No regional wall motion abnormalities noted. Right Ventricle Normal RV size. Normal systolic function. Atria Normal left atrium. Normal right atrium. Mitral Valve Normal mitral valve. Tricuspid Valve Normal tricuspid valve. Mild tricuspid valve insufficiency. Aortic Valve Trisinus/trileaflet aortic valve. Pulmonic Valve Normal pulmonic valve. Great Vessels Normal aortic root. The pulmonary artery is normal size. Normal inferior vena cava. Pericardium/Pleural No pericardial effusion. MMode/2D Measurements & Calculations LVIDd: 4.9 cm IVSd: 1.2 cm LVOT diam: 2.2 cm LVIDs: 3.3 cm LVPWd: 1.3 cm LVOT area: 3.9 cm2 RVDd: 3.8 cm FS: 33.1 % asc Aorta Diam: 4.1 cm LAV(MOD-bp): 83.7 ml LVAd ap4: 23.2 cm2 LAV(MOD-bp) Indexed: 37.7 ml/m2 LVLd ap4: 7.3 cm LAV(MOD-sp2): 89.1 ml EDV(MOD-sp4): 61.1 ml LAV(MOD-sp4): 76.4 ml EDV(sp4-el): 62.9 ml LVAs ap4: 14.8 cm2 LVLs ap4: 6.7 cm ESV(MOD-sp4): 26.8 ml ESV(sp4-el): 28.0 ml EF(MOD-sp4): 56.2 % EF(sp4-el): 55.5 % LVAd ap2: 23.5 cm2 SV(MOD-sp4): 34.4 ml SV(MOD-sp2): 31.2 ml LVLd ap2: 7.5 cm SI(MOD-sp4): 15.5 ml/m2 SI(MOD-sp2): 14.1 ml/m2 EDV(MOD-sp2): 61.3 ml EDV(sp2-el): 62.2 ml LVAs ap2: 15.8 cm2 LVLs ap2: 6.9 cm ESV(MOD-sp2): 30.1 ml ESV(sp2-el): 30.4 ml EF(MOD-sp2): 51.0 % SV(sp4-el): 34.9 ml Ao sinus diam: 3.[address] Junction: 3.3 cm LA dimension(2D): 5.0 cm LA A4 area: 26.1 cm2 RA A4 area: 20.0 cm2 TAPSE: 1.8 cm Doppler Measurements & Calculations Ao V2 max: 127.3 cm/sec LV V1 max: 101.8 cm/sec SV(LVOT): 65.2 ml Ao max P.7 mmHg LV V1 max P.2 mmHg Ao V2 mean: 99.8 cm/sec LV V1 mean P.7 mmHg Ao mean P.4 mmHg LV V1 mean: 80.0 cm/sec Ao V2 VTI: 21.3 cm LV V1 VTI: 16.8 cm AV (velocity ratio): 0.79 SEBASTIAN(I,D): 3.1 cm2 SEBASTIAN(V,D): 3.1 cm2 ___ PA V2 max: 66.3 cm/sec TR max bobby: 218.4 cm/sec TR max P.1 mmHg ECHO/Echo Complete Interpretation Summary Normal LV size. Left ventricular systolic function is normal. The left ventricular ejection fraction is 55 %. Mild concentric left ventricular hypertrophy. Ordering Physician: Jonn Adams Referring Physician: Lisset Barrera Performed By: Sandi Garcia RDCS 05/23/251846 Date _ Saud Echavarria MD CC: Dr. Jonn Adams, DO; Dr. Lisset Barrera, DO; Dr. Lisset Saldivar, DO~ Date Dictated: 05/23/25310 Date Transcribed: 05/23/251846 Senior Manufacturing Test Engineer: Signed [facility] Work Phone: Erythrocyte distribution wid th ratioOrdered By: Jonn Adams on 05-23-2025 Erythrocyte distribution width (RBC) [Ratio] 14.8 % High 11.6-14.6 [facility] Erythrocyte distribution wid th standard deviationOrdered By: Jonn Adams on 05-23-2025 Erythrocyte distribution width (RBC) [Ratio] 48.9 fl High 35.1-43.9 [facility] Glomerular filtration rate ( GFR) estimation/1.73 sq m using serum, plasma, or whole bOrdered By: Jonn Adams on 05-23-2025 GFR/1.73 sq M.predicted among non-blacks MDRD (S/P/Bld) [Vol rate/Area] 66 mL/min/{1.73_m2} >60 [facility] Comment on above: mL/min/1.73m2 CKD-EP I Creatinine Equation (2020) Hematocrit Auto (Bld) [Volum e fraction]Ordered By: Jonn Adams on 05-23-2025 Hematocrit (Bld) [Volume fraction] 39.0 % Low 40-54 [facility] Hemoglobin measurementOrdere d By: Jonn Adams on 05-23-2025 Hemoglobin (Bld) [Mass/Vol] 12.6 g/dL Low 13.0-16.5 [facility] MCV (mean corpuscular volume ) determinationOrdered By: Jonn Adams on 05-23-2025 MCV (RBC) [Entitic vol] 89.4 fL 80-94 [facility] Magnetic resonance imaging r eportOrdered By: Otilio Zuniga on 05-23-2025 Study report [facility] Imaging Services [address] [place], [place] [id number] Brain W/WO Contrast MR#: [id number] Acct: [id number] Name: LISSET FARMER Rep #: [id number] : 1950 M 75 From: Jose Zuniga MD PCP: Dr. Lisset Barrera, Status: ADM IN Study:Brain W/WO Contrast Date of Exam: 05/23/25 Exam# [id number] Ordering Dr: Jonn Isabel DO PROCEDURE: BRAIN W/WO CONTRAST 05/23/2025 REASON FOR EXAM: AMS W/ CANCER HX, EVAL FOR METS. Hairy cell leukemia and prostate cancer. TECHNIQUE: BRAIN W/WO CONTRAST Multiplanar and multisequence images were obtained. CONTRAST: Clariscan VOLUME: 20 mL COMPARISON: CT head without contrast, 05/22/2025. FINDINGS: There is patchy gyriform diffusion restriction in the right parietal lobe, posteriorly. Unfortunately, the postcontrast T1 images are degraded by patient motion artifact. There are chronic lacunar infarctions in the periventricular white matter of the left frontal and occipital lobes. Additionally there are foci of abnormal periventricular and subcortical white matter signal consistent with chronic ischemic white matter disease. There is mild diffuse cerebral atrophy with concomitant ventriculomegaly. The basilar cisterns are normal. There are normal flow voids demonstrated in the recognized intracranial vessels. As previously noted, the basilar and proximal middle cerebral arteries appear dolichoectatic. The cerebellum and brainstem are unremarkable. The cerebellar pontine angles arenormal. The craniovertebral junction is normal. The sella and suprasellar regions are normal. The orbits and retro-orbital regions are unremarkable. The nasal septum is midline. There is no significant paranasal sinus disease. The mastoid air cells are clear. There is normal bone marrow signal in the skull base and calvarium. MRI/Brain W/WO Contrast IMPRESSION: 1. Patchy gyriform diffusion restriction in the right parietal lobe, posteriorly. This is in the area of the posterior watershed, and could be reversible ischemia, so-called reversible cerebral vasoconstriction syndrome, or acute infarction. Tumor is less likely. 2. There are no foci of abnormal intracranial contrast enhancement to suggest metastatic disease. However, the postcontrast images are degraded by patient motion artifact. 3. Cerebral atrophy. 4. Other findings as noted. Reading Location: [id number] CC: Dr. Jonn Adams, DO; Dr. Lisset Barrera DO ~ Senior Manufacturing Test Engineer: Signed [facility] Work Phone: Mean corpuscular hemoglobin (MCH) determinationOrdered By: Jonn Adams on 05-23-2025 MCH (RBC) [Entitic mass] 28.9 pg 27.0-32.0 [facility] Mean corpuscular hemoglobin concentration (MCHC) determinationOrdered By: Jonn Adams on 05-23-2025 MCHC (RBC) [Mass/Vol] 32.3 g/dL 32-36 [facility] Mean platelet volume determi nationOrdered By: Jonn Adams on 05-23-2025 Platelet mean volume (Bld) [Entitic vol] 11.0 fL 6.2-12.0 [facility] No Panel InformationOrdered By: Jonn Adams on 05-23-2025 Prostate Specific Ag Serial Monitor Not Reportable [facility] Platelet countOrdered By: Denis Adams on 05-23-2025 Platelets (Bld) [#/Vol] 193 10*3/uL 150-450 [facility] Potassium measurement (mass/ volume)Ordered By: Jonn Adams on 05-23-2025 Potassium (Unsp spec) [Mass/Vol] 3.8 mmol/L 3.3-5.1 [facility] RBC Auto (Bld) [#/Vol]Ordere d By: Jonn Adams on 05-23-2025 RBC (Bld) [#/Vol] 4.36 10*6/uL Low 4.6-6.2 [facility] Serum creatinine measurement (mass/volume)Ordered By: Jonn Adams on 05-23-2025 Creatinine [Mass/Vol] 1.16 mg/dL 0.70-1.20 [facility] Serum glucose measurement (m ass/volume)Ordered By: Jonn Adams on 05-23-2025 Glucose [Mass/Vol] 111 mg/dL High 70-99 [facility] Serum or plasma calcium [place] urement (mass/volume)Ordered By: Jonn Adams on 05-23-2025 Calcium [Mass/Vol] 9.4 mg/dL 7.6-11.0 [facility] Serum or plasma urea nitroge n measurement (mass/volume)Ordered By: Jonn Adams on 05-23-2025 Urea nitrogen [Mass/Vol] 14 mg/dL 4-19 [facility] Sodium levelOrdered By: Kamran bales Bryan on 05-23-2025 Sodium [Moles/Vol] 142 mmol/L 133-145 [facility] White blood cell (WBC) count Ordered By: Jonn Adams on 05-23-2025 WBC (Bld) [#/Vol] 5.7 10*3/uL 4.4-11.0 [facility] 12 Lead EKGon 05-22-2025 12 Lead EKG [facility] Cardiovascular Services [address] [place] [address] 12 Lead EKG 05/22/25 1752 MR#: [id number] Acct: [id number] Name: LISSET FARMER Rep #: [id number] : 1950 75 From: Saud Echavarria MD Attending Dr: Dr. Lisset Saldivar DO Status: A DM IN Ordering Dr: Nam Jaimes MD Date: 05/22/25 Location: [facility] Sex: M C Admitted: 05/22/25 Test Reason : MH Blood Pressure : */* mmHG Vent. Rate : 133 BPM Atrial Rate : * BPM P-R Int : * ms QRS Dur : 94 ms QT Int : 338 ms P-R-T Axes : * -15 167 degrees QTcB Int : 503 ms Atrial fibrillation with rapid ventricular response Inferior infarct , age undetermined Abnormal ECG Confirmed by SAUD ECHAVARRIA MD ([id number]), videotape editor PEG AUGUSTIN ([id number]) on 05/24/2025 6:35:47 AM Referred By: Confirmed By: SAUD ECHAVARRIA MD 05/24/25 0635 Date Saud Echavarria MD CC: Dr. Nam Jaimes MD; Dr. Lisset Barrera DO; Dr. Lisset Saldivar DO Signed Normal [facility] Abdomen/Pelvis W IV Cont ONL Yon 05-22-2025 Abdomen/Pelvis W IV Cont ONLY [facility] Imaging Services [address] [place], [place] [id number] Abdomen/Pelvis W IV Cont ONLY MR#: [id number] Acct: [id number] Name: LISSET FARMER Rep #: [id number] : 1950 M 75 From: Peewee meier MD PCP: Dr. Lisset Barrera DO Status: ADM IN Study: Abdomen/Pelvis W IV Cont ONLY Date of Exam: Exam# [id number] Ordering Dr: Jonn Adams DO PROCEDURE: ABDOMEN/PELVIS W IV CONT ONLY 05/22/2025 REASON FOR EXAM: ABD PAIN, WORSENING PSA W/ H/O PROSTATE CA TECHNIQUE: ABDOMEN/PELVIS W IV CONT ONLY Coronal and Sagittal reconstruction series were provided. CONTRAST: Isovue-370 VOLUME: 100 mL One or more dose reduction techniques were used (e.g., Automated exposure control, adjustment of the mA and/or kV according to patient size, use of iterative reconstruction technique. RADIATION DOSE SUMMARY: CTDlvol: 23.27 mGy DLP: 1492.13 mGycm COMPARISON: 07/09/2022 FINDINGS: The visualized lung bases are unremarkable. Normal liver. Numerous stones are seen in the gallbladder lumen. No wall thickening or pericholecystic fluid. Normal extrahepatic biliary system. 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 The splenic parenchyma is otherwise unremarkable.. Normal pancreas. Normal bilateral adrenal glands. Normal size of the right kidney. There is no right renal mass. 11.2 cm cyst is seen in the upper pole of the right kidney. There are no right renal calculi. There is no right hydronephrosis. Normal visualized right ureter. Normal size of the left kidney. There is no left renal mass. Multiple cysts are seen in the left kidney largest measuring 7.8 cm in the upper pole There are no left renal calculi. There is no left hydronephrosis. Normal visualized left ureter. Normal visualized stomach. Normal small intestine. Normal colon. The appendix is visualized and appears normal. There is no demonstrated peritoneal fluid. Normal abdominal aorta. Normal inferior vena cava. Normal retroperitoneum. Normal urinary bladder. There is no pelvic mass lesion or lymphadenopathy. There is no pelvic fluid. Small fat-containing umbilical hernia is seen. Scattered sclerotic changes are seen involving the axial skeleton most consistent with metastatic process. CT/Abdomen/Pelvis W IV Cont ONLY IMPRESSION: No acute intra-abdominal process. Bilateral renal cysts. Cholelithiasis, no cholecystitis. 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 Fat-containing umbilical hernia. Findings in the axial skeleton most consistent with a metastatic process. Reading [facility] CC: Dr. Jonn Adams, DO; Dr. Lisset Barrera, DO Senior Manufacturing Test Engineer: Signed Normal [facility] Absolute lymphocyte countOrd ered By: Nam Jaimes on 05-22-2025 Lymphocytes Auto (Unsp spec) [#/Vol] 0.85 10*3/uL 0.83-4.51 [facility] Absolute neutrophil countOrd ered By: Nam Jaimes on 05-22-2025 Neutrophils (Bld) [#/Vol] 5.2 10*3/uL 2.0-7.7 [facility] Alcohol, Blood (Medical)-Ser umon 05-22-2025 SERUM ETOH < 10.1 Normal <=10.0 [facility] Comment on above: Result Comment: This test is for medical purposes only. The legal definition of intoxication varies according to local law. Performed By: #### L 503.7505, L100.0100, L300.3900, L501.9100, L505.5000, L500.4050 ####[facility] [address] [facility]. [place], [place], [id number] Ammoniaon 05-22-2025 Ammonia (P) [Moles/Vol] 11.0 umol/L Low 16-60 [facility] Comment on above: Performed By: #### L 499.0043 #### [facility] Laboratory [address] [facility]. [place], [place], [id number] Amphetamine detection with 1 000 ng/mL as cutoffOrdered By: Nam Jaimes on 05-22-2025 Amphetamines Screen method >1000 ng/mL Ql (U) Negative < 200 ng/mL [facility] Anion gap in Serum or Plasma Ordered By: Nam Jaimes on 05-22-2025 Anion gap [Moles/Vol] 12 mmol/L 5-15 [facility] Automated lymphocyte count a s percentage of total leukocytesOrdered By: Nam Jaimes on 05-22-2025 Lymphocytes/100 WBC Auto (Unsp spec) 12.8 % Low 19-41 [facility] BUN/creatinine ratioOrdered By: Nam Jaimes on 05-22-2025 Urea nitrogen/Creatinine [Mass ratio] 14.2 mg/mg 10-20 [facility] Basophil percentageOrdered B y: Nam Jaimes on 05-22-2025 Basophils/100 WBC (Bld) 0.5 % 0-1 [facility] Bilirubin Test strip Ql (U)O rdered By: Nam Jaimes on 05-22-2025 Bilirubin Ql (U) Negative Negative [facility] Bilirubin, totalOrdered By: Nam Jaimes on 05-22-2025 Bilirubin [Mass/Vol] 0.67 mg/dL 0.00-1.30 [facility] Brain/Head without Contrasto n 05-22-2025 Brain/Head without Contrast [facility] Imaging Services [address], [place] [address] Brain/Head without Contrast MR#: [id number] Acct: [id number] Name: LISSET FARMER Rep #: [id number] : 1950 M 75 From: Nehemiah Petit MD PCP: Dr. Lisset Barrera, DO Status: REG ER Study: Brain/Head without Contrast Date of Exam: 07/09 Exam# [id number] Ordering Dr: Nam Jaimes MD PROCEDURE: BRAIN/HEAD WITHOUT CONTRAST 05/22/2025 REASON FOR EXAM: ALOC TECHNIQUE: BRAIN/HEAD WITHOUT CONTRAST Coronal and Sagittal reconstruction series were provided. One or more dose reduction techniques were used (e.g., Automated exposure control, adjustment of the mA and/or kV according to patient size, use of iterative reconstruction technique. RADIATION DOSE SUMMARY: CTDlvol: 44.99 mGy DLP: 829.85 mGycm COMPARISON: None available. FINDINGS: No acute intracranial hemorrhage, extra-axial collection, mass effect or evidence of acute infarct. Mild-moderate generalized brain parenchymal volume loss, and chronic microangiopathic changes. Atherosclerotic calcification of the intracranial vasculature, with a somewhat dolichoectatic appearance of the basilar artery and proximal MCAs. Orbital contents are unremarkable. Intact skull base and calvarium. Clear paranasal sinuses and mastoid air cells. CT/Brain/Head without Contrast IMPRESSION: 1. No acute intracranial abnormality. 2. Mild-moderate volume loss and chronic microangiopathic changes. Reading Location: [id number] CC: Dr. Nam Jaimes MD; Dr. Lisset Barrera DO Senior Manufacturing Test Engineer: Signed Normal [facility] CBC W/Diff, Automatedon 07 Absolute Lymph 0.85 X10 3/uL Normal 0.83-4.51 [facility] Comment on above: Performed By: #### L 503.7505, L100.0100, L300.3900, L501.9100, L505.5000, L500.4050 ####[facility] [address] [place], [address] Absolute Neut 5.2 X10 3/uL Normal 2.0-7.7 [facility] Comment on above: Performed By: #### L 503.7505, L100.0100, L300.3900, L501.9100, L505.5000, L500.4050 ####[facility] [address] [place], [address] Basophils/100 WBC (Bld) 0.5 % Normal 0-1 [facility] Comment on above: Performed By: #### L 503.7505, L100.0100, L300.3900, L501.9100, L505.5000, L500.4050 ####[facility] [address] [place], [address] Eosinophils/100 WBC (Bld) 0.6 % Normal 0-5 [facility] Comment on above: Performed By: #### L 503.7505, L100.0100, L300.3900, L501.9100, L505.5000, L500.4050 ####[facility] [address] [place], [address] Erythrocyte distribution width (RBC) [Ratio] 14.6 % Normal 11.6-14.6 [facility] Comment on above: Performed By: #### L 503.7505, L100.0100, L300.3900, L501.9100, L505.5000, L500.4050 ####[facility] [address] [place], [address] Hematocrit (Bld) [Volume fraction] 39.7 % Low 40-54 [facility] Comment on above: Performed By: #### L 503.7505, L100.0100, L300.3900, L501.9100, L505.5000, L500.4050 ####[facility] [address], [address] Hemoglobin (Bld) [Mass/Vol] 13.0 g/dL Normal 13.0-16.5 [facility] Comment on above: Performed By: #### L 503.7505, L100.0100, L300.3900, L501.9100, L505.5000, L500.4050 ####[facility] [address], [address] IG% 0.300 Normal 0.0-0.9 [facility] Comment on above: Result Comment: IG% - Immature Granulocytes (promyelocytes, myelocytes and metamyelocytes) > 1% indicates that a LEFT SHIFT is Present. Performed By: #### L 503.7505, L100.0100, L300.3900, L501.9100, L505.5000, L500.4050 ####[facility] [address] [place], [address] Lymphocytes/100 WBC (Bld) 12.8 % Low 19-41 [facility] Comment on above: Performed By: #### L 503.7505, L100.0100, L300.3900, L501.9100, L505.5000, L500.4050 ####[facility] [address] [place], [address] MCH (RBC) [Entitic mass] 29.1 pg Normal 27.0-32.0 [facility] Comment on above: Performed By: #### L 503.7505, L100.0100, L300.3900, L501.9100, L505.5000, L500.4050 ####[facility] [address] [place], [address] MCHC (RBC) [Mass/Vol] 32.7 g/dL Normal 32-36 [facility] Comment on above: Performed By: #### L 503.7505, L100.0100, L300.3900, L501.9100, L505.5000, L500.4050 ####[facility] [address] [place], [address] MCV (RBC) [Entitic vol] 88.8 fL Normal 80-[address] [facility] Comment on above: Performed By: #### L 503.7505, L100.0100, L300.3900, L501.9100, L505.5000, L500.4050 ####[facility] [address] [place], [address] Monocytes/100 WBC (Bld) 7.3 % Normal 0-10 [facility] Comment on above: Performed By: #### L 503.7505, L100.0100, L300.3900, L501.9100, L505.5000, L500.4050 ####[facility] [address] [place], [address] Neutrophils/100 WBC (Bld) 78.5 % High 47-70 [facility] Comment on above: Performed By: #### L 503.7505, L100.0100, L300.3900, L501.9100, L505.5000, L500.4050 ####[facility] [address] [place], [address] Nucleated RBC (Bld) [#/Vol] 0 10*3/uL Normal 0-5 [facility] Comment on above: Performed By: #### L 503.7505, L100.0100, L300.3900, L501.9100, L505.5000, L500.4050 ####[facility] [address] [place], [address] Platelet mean volume (Bld) [Entitic vol] 11.5 fL Normal 6.2-12.0 [facility] Comment on above: Performed By: #### L 503.7505, L100.0100, L300.3900, L501.9100, L505.5000, L500.4050 ####[facility] [address] [place], [address] Platelets (Bld) [#/Vol] 204 10*3/uL Normal 150-450 [facility] Comment on above: Performed By: #### L 503.7505, L100.0100, L300.3900, L501.9100, L505.5000, L500.4050 ####[facility] [address] [place], [address] RBC (Bld) [#/Vol] 4.47 10*6/uL Low 4.6-6.2 [facility] Comment on above: Performed By: #### L 503.7505, L100.0100, L300.3900, L501.9100, L505.5000, L500.4050 ####[facility] [address] [place], [address] RDW SD 47.7 fl High 35.1-43.9 [facility] Comment on above: Performed By: #### L 503.7505, L100.0100, L300.3900, L501.9100, L505.5000, L500.4050 ####[facility] [address] [place], [address] WBC (Bld) [#/Vol] 6.6 10*3/uL Normal 4.4-11.0 [facility] Comment on above: Performed By: #### L 503.7505, L100.0100, L300.3900, L501.9100, L505.5000, L500.4050 ####[facility] [address] [facility] [place], [address] Carbon dioxide, total [Moles /volume] in Central venous bloodOrdered By: Nam Jaimes on 05-22-2025 CO2 [Moles/Vol] 23.1 mmol/L 21.0-32.0 [facility] Chest PA and Lateralon 05-22 Chest PA and Lateral [facility] Imaging Services [address] [place] [address] Chest PA and Lateral MR#: [id number] Acct: [id number] Name: LISSET FARMER Rep #: [id number] : 1950 M 75 From: Nehemiah Petit MD PCP: Dr. Lisset Barrera, DO Status: REG ER Study: Chest PA and Lateral Date of Exam: 05/22/25 Exam# [id number] Ordering Dr: Nam Jaimes MD PROCEDURE: CHEST PA AND LATERAL 05/22/2025 REASON FOR EXAM: A-FIB AND EDEMA TECHNIQUE: CHEST PA AND LATERAL COMPARISON: 05/09/2025 FINDINGS: Lungs/Pleura: No focal consolidation or findings of pulmonary edema. No pneumothorax or pleural effusions. Heart/Mediastinum: Enlarged cardiac silhouette. Tortuous and calcified aorta. Bones/Soft tissues: Multilevel degenerative changes of the spine. Rounded calcific density in the left upper abdomen corresponding to a calcified splenic granuloma. RAD/Chest PA and Lateral IMPRESSION: Cardiomegaly. No evidence of acute pulmonary disease. No pleural effusions. Reading Location: [id number] CC: Dr. Nam Jaimes MD; Dr. Lisset Barrera DO Senior Manufacturing Test Engineer: Signed Normal [facility] Chloride assayOrdered By: Al Jaimes on 05-22-2025 Chloride [Moles/Vol] 107 mmol/L 98-108 [facility] Comprehensive Metabolic Prof ilon 05-22-2025 Albumin [Mass/Vol] 4.2 g/dL Normal 3.4-4.8 [facility] Comment on above: Performed By: #### L 503.7505, L100.0100, L300.3900, L501.9100, L505.5000, L500.4050 ####[facility] [address] [place], [address] Albumin/Globulin [Mass ratio] 1.2 {ratio} Normal 0.9-2.4 [facility] Comment on above: Performed By: #### L 503.7505, L100.0100, L300.3900, L501.9100, L505.5000, L500.4050 ####[facility] [address] [place], [address] ALK PHOS 77 U/L Normal 40-129 [facility] Comment on above: Performed By: #### L 503.7505, L100.0100, L300.3900, L501.9100, L505.5000, L500.4050 ####[facility] [address] [place], [address] ALT [Catalytic activity/Vol] 12 U/L Normal <=46 [facility] Comment on above: Performed By: #### L 503.7505, L100.0100, L300.3900, L501.9100, L505.5000, L500.4050 ####[facility] [address] [place], [address] AST [Catalytic activity/Vol] 18 U/L Normal <=37 [facility] Comment on above: Performed By: #### L 503.7505, L100.0100, L300.3900, L501.9100, L505.5000, L500.4050 ####[facility] [address] [place], [address] Bilirubin [Mass/Vol] 0.67 mg/dL Normal 0.00-1.30 [facility] Comment on above: Performed By: #### L 503.7505, L100.0100, L300.3900, L501.9100, L505.5000, L500.4050 ####[facility] [address], [address] BUN/CRE 14.2 RATIO Normal 10-20 [facility] Comment on above: Performed By: #### L 503.7505, L100.0100, L300.3900, L501.9100, L505.5000, L500.4050 ####[facility] [address], [address] Calcium [Mass/Vol] 9.6 mg/dL Normal 7.6-11.0 [facility] Comment on above: Performed By: #### L 503.7505, L100.0100, L300.3900, L501.9100, L505.5000, L500.4050 ####[facility] [address] [place], [address] Chloride [Moles/Vol] 107 mmol/L Normal 98-108 [facility] Comment on above: Performed By: #### L 503.7505, L100.0100, L300.3900, L501.9100, L505.5000, L500.4050 ####[facility] [address], [address] CO2 [Moles/Vol] 23.1 mmol/L Normal 21.0-32.0 [facility] Comment on above: Performed By: #### L 503.7505, L100.0100, L300.3900, L501.9100, L505.5000, L500.4050 ####[facility] [address] [place], [address] Creatinine [Mass/Vol] 1.26 mg/dL High 0.70-1.20 [facility] Comment on above: Performed By: #### L 503.7505, L100.0100, L300.3900, L501.9100, L505.5000, L500.4050 ####[facility] [address] [place], [address] ECRCL 62.30 ml/min Normal 50-250 [facility] Comment on above: Performed By: #### L 503.7505, L100.0100, L300.3900, L501.9100, L505.5000, L500.4050 ####[facility] [address] [place], [address] GAP 12 Normal 5-15 [facility] Comment on above: Performed By: #### L 503.7505, L100.0100, L300.3900, L501.9100, L505.5000, L500.4050 ####[facility] [address] [place], [address] GFR/1.73 sq M.predicted among non-blacks MDRD (S/P/Bld) [Vol rate/Area] 59 mL/min/{1.73_m2} Low >60 [facility] Comment on above: Result Comment: mL/m in/1.73m2 CKD-EPI Creatinine Equation (2020) Performed By: #### L 503.7505, L100.0100, L300.3900, L501.9100, L505.5000, L500.4050 ####[facility] [address] [place], [address] Globulin (S) [Mass/Vol] 3.5 g/dL Normal 2.2-4.[address] [facility] Comment on above: Performed By: #### L 503.7505, L100.0100, L300.3900, L501.9100, L505.5000, L500.4050 ####[facility] [address] [place], [address] Glucose [Mass/Vol] 118 mg/dL High 70-99 [facility] Comment on above: Performed By: #### L 503.7505, L100.0100, L300.3900, L501.9100, L505.5000, L500.4050 ####[facility] [address] [place], [address] Potassium [Moles/Vol] 3.8 mmol/L Normal 3.3-5.1 [facility] Comment on above: Performed By: #### L 503.7505, L100.0100, L300.3900, L501.9100, L505.5000, L500.4050 ####[facility] [address] [place], [address] Sodium [Moles/Vol] 143 mmol/L Normal 133-145 [facility] Comment on above: Performed By: #### L 503.7505, L100.0100, L300.3900, L501.9100, L505.5000, L500.4050 ####[facility] [address] [place], [address] T PROT 7.8 g/dL Normal 5.9-8.4 [facility] Comment on above: Performed By: #### L 503.7505, L100.0100, L300.3900, L501.9100, L505.5000, L500.4050 ####[facility] [address] [place], [address] Urea nitrogen [Mass/Vol] 18 mg/dL Normal 4-19 [facility] Comment on above: Performed By: #### L 503.7505, L100.0100, L300.3900, L501.9100, L505.5000, L500.4050 ####[facility] [address] [place], [address] Echo Completeon 05-22-2025 Echo Complete [facility] [address] [place] [address] Echo Complete 05/23/25 0311 MR#: [id number] Acct: [id number] Name: LISSET FARMER Rep #: [id number] : 1950 75 From: Saud Echavarria MD Attending Dr: Dr. Lisset Saldivar DO Status: A DM IN Ordering Dr: Jnon Adams DO Date: 05/22/25 Location: [facility] Sex: M C Admitted: 05/22/25 Reason For Study Reason For Study: ATRIAL FIBRILLATION Procedure This was a 2D Doppler, Color Flow transthoracic echocardiogram. Exam performed portable in patient room. Left Ventricle Normal LV size. Mild concentric left ventricular hypertrophy. Left ventricular systolic function is normal. The left ventricular ejection fraction is 55 %. No regional wall motion abnormalities noted. Right Ventricle Normal RV size. Normal systolic function. Atria Normal left atrium. Normal right atrium. Mitral Valve Normal mitral valve. Tricuspid Valve Normal tricuspid valve. Mild tricuspid valve insufficiency. Aortic Valve Trisinus/trileaflet aortic valve. Pulmonic Valve Normal pulmonic valve. Great Vessels Normal aortic root. The pulmonary artery is normal size. Normal inferior vena cava. Pericardium/Pleural No pericardial effusion. MMode/2D Measurements Calculations LVIDd: 4.9 cm IVSd: 1.2 cm LVOT diam: 2.2 cm LVIDs: 3.3 cm LVPWd: 1.3 cm LVOT area: 3.9 cm2 RVDd: 3.8 cm FS: 33.1 % asc Aorta Diam: 4.1 cm LAV(MOD-bp): 83.7 ml LVAd ap4: 23.2 cm2 LAV(MOD-bp) Indexed: 37.7 ml/m2 LVLd ap4: 7.3 cm LAV(MOD-sp2): 89.1 ml EDV(MOD-sp4): 61.1 ml LAV(MOD-sp4): 76.4 ml EDV(sp4-el): 62.9 ml LVAs ap4: 14.8 cm2 LVLs ap4: 6.7 cm ESV(MOD-sp4): 26.8 ml ESV(sp4-el): 28.0 ml EF(MOD-sp4): 56.2 % EF(sp4-el): 55.5 % LVAd ap2: 23.5 cm2 SV(MOD-sp4): 34.4 ml SV(MOD-sp2): 31.2 ml LVLd ap2: 7.5 cm SI(MOD-sp4): 15.5 ml/m2 SI(MOD-sp2): 14.1 ml/m2 EDV(MOD-sp2): 61.3 ml EDV(sp2-el): 62.2 ml LVAs ap2: 15.8 cm2 LVLs ap2: 6.9 cm ESV(MOD-sp2): 30.1 ml ESV(sp2-el): 30.4 ml EF(MOD-sp2): 51.0 % SV(sp4-el): 34.9 ml Ao sinus diam: 3.[address] Junction: 3.3 cm LA dimension(2D): 5.0 cm LA A4 area: 26.1 cm2 RA A4 area: 20.0 cm2 TAPSE: 1.8 cm Doppler Measurements Calculations Ao V2 max: 127.3 cm/sec LV V1 max: 101.8 cm/sec SV(LVOT): 65.2 ml Ao max P.7 mmHg LV V1 max P.2 mmHg Ao V2 mean: 99.8 cm/sec LV V1 mean P.7 mmHg Ao mean P.4 mmHg LV V1 mean: 80.0 cm/sec Ao V2 VTI: 21.3 cm LV V1 VTI: 16.8 cm AV (velocity ratio): 0.79 SEBASTIAN(I,D): 3.1 cm2 SEBASTIAN(V,D): 3.1 cm2 PA V2 max: 66.3 cm/sec TR max bobby: 218.4 cm/sec TR max P.1 mmHg ECHO/Echo Complete Interpretation Summary Normal LV size. Left ventricular systolic function is normal. The left ventricular ejection fraction is 55 %. Mild concentric left ventricular hypertrophy. Ordering Physician: Jonn Adams Referring Physician: Lisset Barrera Performed By: Sandi Garcia ADRIAN 05/23/251846 Date Saud Echavarria MD CC: Dr. Jonn Adams DO; Dr. Lisset Barrera DO; Dr. Lisset Saldivar DO Date Dictated: 05/23/25310 Date Transcribed: 05/23/251846 Senior Manufacturing Test Engineer: Signed Normal [facility] Emergency Department Summary on 05-22-[address] [facility] Medical Records Department [address] [place] [address] Emergency Department Summary 05/22/25 MR#: [id number] Acct: [id number] Name: LISSET FARMER Rep #: [id number] : 1950 75 From: Nam Jaimes MD PCP: Dr. Lisset Barrera DO Status:ADM IN Location: [address] History of Present Illness Chief Complaint: Mental Status Change Detail of Chief Complaint: Altered mental status. Informant: patient and family (Grandson and another family member in the room.) Onset/Context/Timing Onset: Today Timing: Continuous Current Severity: Moderate Maximum Severity: Moderate Narrative Narrative: 75-year-old male history of prostate cancer, hairy cell leukemia, A-fib. On lisinopril metoprolol. Today he was found in his car without any pants on at home. He was found by the police who were concerned this is a medical problem brought him to the hospital. Patient denies recent illness. He denies headache. He denies blood thinners. He denies nausea, vomiting or diarrhea. He denies headache or head trauma. He denies fever or dysuria. He does seem confused. Prior similar symptoms: No Recent Illness/Hospitalizati on: No PFSH PFSH Medical History Prostate cancer Elevated PSA Kidney stones Hematuria Pancytopenia High risk medication use KATHY (obstructive sleep apnea) Fatty liver disease Agranulocytosis secondary to cancer chemotherapy Drug induced neutropenia Hairy cell leukemia Obesity Hypertension Sleep apnea Home Medications ???Medication ???Instructions ???Recorded ???Last Taken ???Type lisinopril 40 mg tablet 40 mg PO DAILY bp 12/09/15 5 History calcium 250 mg (as 1 ea PO BID 10/29/20 05/09/25 Hist ory carbonate)-vitamin D3 3.125 mcg (125 unit) tablet metoprolol tartrate 50 mg tablet 50 mg PO DAILY 04/26/24 05/09/25 H istory amlodipine 10 mg tablet 10 mg PO QDAY 05/09/25 05/09/25 Hi story apixaban 5 mg tablet (Eliquis) 5 mg PO BID 30 days #60 tabs 05/09 Unknown Rx Allergy/AdvReac Type Severity Reaction Status Date / Time sulfamethoxazole (From AdvReac Intermediate Rash Verified 05/22/25 17:07 Bactrim) trimethoprim (From Bactrim) AdvReac Intermediate Rash Verified 05/22/25 17:07 Family History Mother Hypertension CVA (cerebral vascular accident) Breast cancer Sister CVA (cerebral vascular accident) Surgical History History of prostate biopsy Basal cell carcinoma of nose Social History household members: none Smoking Status: Never smoker second hand exposure: No alcohol intake: never substance use type: does not use ROS ROS ED ROS Narrative Denies recent illness. Review of Systems ROS Unobtainable: due to mental status Constitutional Constitutional ED: Denies chills or fever(s) Eyes Eyes: Denies blurry vision ENT ENT ED: Denies ear pain Cardiovascular Cardiovascular: Denies chest pain Respiratory/Chest Respiratory/Chest: Denies cough Gastrointestinal Gastrointestinal: Denies abdominal pain Genitourinary Genitourinary ED: Denies dysuria Musculoskeletal Musculoskeletal: Denies arthralgias Integumentary Denies abscess Neurologic Neurologic: Denies headache(s) Psychiatric Psychiatric: Denies anxiety Endocrine Endocrinology: Denies cold intolerance Hematologic/Lymphatic Hematologic/Lymphatic : Reports none Allergic/Immunologic Allergic/Immunologic ED: Denies mouth swelling, tongue swelling or urticaria EXAM Physical Exam Narrative Exam Narrative: Seen via male sitting upright in bed. Vital signs show A-fib RVR rate of 130. H EENT exam pupils round react light. Extra motions are intact. No facial droop. Normal speech. No signs of trauma to his face or head. No hematoma. Neck nontender. No lymphadenopathy. Back nontender mild abrasion left lower back but he denies how that happened. Lungs clear to auscultation bilaterally. Heart A-fib RVR rate about 130 no murmur. Chest wall ribs nontender. Abdomen soft nontender. Moving all 4 extremities. 1-2+ pitting edema both lower extremities. 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 Normal dorsi plantarflexion. No drift. Neurologically he is awake. He is alert. He is answering questions. He knew the president he did not know the year or the month. There is no slurred speech. He has normal motor strength. But he does seem confused. Const Vital Signs: 05/22/25 17:03 05/22/25 17:42 05/22/25 18:54 Temperature 98.6 F Temperature Source Oral Pulse Rate 109 H 138 H 147 H Respiratory Rate 20 H 22 H 22 H Blood Pressure 134/63 H 118/97 H Blood Pressure Mean 86 104 Pulse Ox 96 98 94 (more content not included)... Normal [facility] Eosinophil percentageOrdered By: Nam Jaimes on 05-22-2025 Eosinophils/100 WBC (Bld) 0.6 % 0-5 [facility] Erythrocyte distribution wid th ratioOrdered By: Nam Jaimes on 05-22-2025 Erythrocyte distribution width (RBC) [Ratio] 14.6 % 11.6-14.6 [facility] Erythrocyte distribution wid th standard deviationOrdered By: Nam Jaimes on 05-22-2025 Erythrocyte distribution width (RBC) [Ratio] 47.7 fl High 35.1-43.9 [facility] Glomerular filtration rate ( GFR) estimation/1.73 sq m using serum, plasma, or whole bOrdered By: Nam Jaimes on 05-22-2025 GFR/1.73 sq M.predicted among non-blacks MDRD (S/P/Bld) [Vol rate/Area] 59 mL/min/{1.73_m2} Low >60 [facility] Comment on above: mL/min/1.73m2 CKD-EP I Creatinine Equation (2020) H AND P Exam - [facility] 05-22-2025 H&P Exam - Hospitalist [facility] Medical Records Department [address] [place] [address] H P Exam - Hospitalist 05/22/251945 MR#: [id number] Acct: [id number] Name: LISSET FARMER Rep #: [id number] : 1950 75 From: Jonn Aadms DO PCP: Dr. Lisset Barrera DO Status:ADM IN Location: [facility] [id number] HPI - General General Date of Admission: 05/22/25 Date of Service: 05/22/25 Chief Complaint: Altered mental status, A-fib with RVR HPI Narrative LISSET FARMER, is a 75 M who presented to [facility] on 05/22/2025 with altered mental status. Patient lives at home alone and has for many years. Family lives in the area. Had 2 grandsons in the ED with him today who noted that they saw him about 1 week ago and he did not appear confused at all. Today patient was in his car without any pants on at home. It appears his neighbors called the police and they noted that he was sitting there comfortably but had no pants on and was confused, so they brought him in for further evaluation. Medical history significant for hairy cell leukemia and prostate cancer; here for leukemia is in remission and prostate cancer has been stable per Dr. Denis with oncology. On arrival to the ED he was normotensive and stable on room air at rest, but he was in A-fib with RVR with rate to the 130s to 140s. He follows with pulmonology for KATHY and was noted at his appointment on 05/09 to be in new onset A-fib with RVR. Went to the ED for this and cardiology recommended starting Eliquis and outpatient follow-up. It is unclear if he has started Eliquis. In the ED today his CT brain was unremarkable. Chest x-ray showed cardiomegaly with mild vascular congestion but no pleural effusions. Lab workup was fairly benign aside from BNP 4303. Ammonia level normal. UA negative. Given his uncontrolled A-fib with RVR and altered mentation, hospitalist was contacted for admission. I saw the patient at bedside in the ED, 2 grandsons were present. Patient was sitting back comfortably in bed and in no acute distress. He was alert and oriented to person and place but not time. He was able to tell me who his grandsons were, but he otherwise had difficulty answering questions and had poor insight into what brought him to the hospital today. On exam he had +2-3 lower extremity pitting edema up to the knees. Otherwise had fairly clear lung sounds bilaterally. Was in A-fib with RVR but no murmur noted. No other acute concerns noted. Will be admitted for further management. [facility] Medical History Prostate cancer Elevated PSA Kidney stones Hematuria Pancytopenia High risk medication use KATHY (obstructive sleep apnea) Fatty liver disease Agranulocytosis secondary to cancer chemotherapy Drug induced neutropenia Hairy cell leukemia Obesity Hypertension Sleep apnea Home Medications ???Medication ???Instructions ???Recorded ???Last Taken ???Type lisinopril 40 mg tablet 40 mg PO DAILY bp 12/09/1505/09/ 5 History calcium 250 mg (as 1 ea PO BID 10/29/20 05/09/25 Hist ory carbonate)-vitamin D3 3.125 mcg (125 unit) tablet metoprolol tartrate 50 mg tablet 50 mg PO DAILY 04/26/24 05/09/25 H istory amlodipine 10 mg tablet 10 mg PO QDAY 05/09/25 05/09/25 Hi story apixaban 5 mg tablet (Eliquis) 5 mg PO BID 30 days #60 tabs 05/09 Unknown Rx Allergy/AdvReac Type Severity Reaction Status Date / Time sulfamethoxazole (From AdvReac Intermediate Rash Verified 05/22/25 17:07 Bactrim) trimethoprim (From Bactrim) AdvReac Intermediate Rash Verified 05/22/25 17:07 Family History Mother Hypertension CVA (cerebral vascular accident) Breast cancer Sister CVA (cerebral vascular accident) Surgical History History of prostate biopsy Basal cell carcinoma of nose Social History household members: none Smoking Status: Never smoker second hand exposure: No alcohol intake: never substance use type: does not use ROS Constitutional Constitutional: Denies chills, fatigue, fever(s) or weakness Eyes Eyes: Denies change in vision Cardiovascular Cardiovascular: Reports edema; Denies chest pain, dyspnea on exertion, lightheadedness, palpitations or rapid heart rate Respiratory/Chest Respiratory/Chest: Denies shortness of breath at rest Gastrointestinal Gastrointestinal: Denies abdominal pain Genitourinary Genitourinary: Denies dysuria Neurologic Neurologic: Denies dizziness, focal weakness or headache(s) Vital Signs Vital Signs Vital Signs: 05/22/25 17:03 05/22/25 17:42 05/22/25 18:54 Temperature 98.6 F Temperature Source Oral Pulse Rate 109 H 138 H 147 H (more content not included)... Normal [facility] Hematocrit Auto (Bld) [Volum e fraction]Ordered By: Nam Jaimes on 05-22-2025 Hematocrit (Bld) [Volume fraction] 39.7 % Low 40-54 [facility] Hemoglobin A1con 05-22-2025 HbA1c (Bld) [Mass fraction] 6.2 % High <=5.6 [facility] Comment on above: Result Comment: Norm al < 5.7 % Prediabetic 5.7 - 6.4 % Diabetic >or= 6.5 % Please note range changes. Performed By: #### L 499.0043 #### [facility] [address] [place], [place], [id number] Hemoglobin A1c percentageOrd ered By: Jonn Adams on 05-22-2025 HbA1c (Bld) [Mass fraction] 6.2 % High <5.7 [facility] Comment on above: Normal < 5.7 % Predi abetic 5.7 - 6.4 % Diabetic >or= 6.5 % Please note range changes. Hemoglobin measurementOrdere d By: Nam Jaimes on 05-22-2025 Hemoglobin (Bld) [Mass/Vol] 13.0 g/dL 13.0-16.5 [facility] Immature granulocytes/100 WB C Auto (Bld)Ordered By: Nam Jaimes on 05-22-2025 Immature granulocytes/100 WBC (Bld) 0.300 % 0.0-0.9 [facility] Comment on above: IG% - Immature Granu locytes (promyelocytes, myelocytes and metamyelocytes) > 1% indicates that a LEFT SHIFT is Present. International normalized rat io (INR) calculationOrdered By: Nam Jaimes on 05-22-2025 INR Coag (Bld) [Relative time] 1.2 {INR} [facility] Ketones Test strip Ql (U)Ord ered By: Nam Jaimes on 05-22-2025 Ketones Ql (U) 5 mg/dl High Negative [facility] L499.0042on 05-22-2025 Trop T High Sen 13 ng/L Normal <=22 [facility] Comment on above: Performed By: #### L 499.0042 ####[facility] [address] [place], [address] Trop T High Sen Normal <=22 [facility] Comment on above: Result Comment: DUPL ICATE ORDER Performed By: #### L 400.0001 #### [facility] [address] [place], [address] L499.0043on 05-22-2025 Trop T High Sen 12 ng/L Normal <=22 [facility] Comment on above: Performed By: #### L 499.0043 #### [facility] [address] [place], [address] L501.4021on 05-22-2025 Trop T High Sen 14 ng/L Normal <=22 [facility] Comment on above: Performed By: #### L 499.0043 #### [facility] [address] [place], [address] L503.7505on 05-22-2025 Natriuretic peptide B (Bld) [Mass/Vol] 4303 pg/mL High <=1800 [facility] Comment on above: Result Comment: Hear t Failure Unlikely: < 300 pg/mL Heart Failure Likely < 50 Years: > 450 pg/mL 50-75 Years: > 900 pg/mL >75 Years: > 1800 pg/mL Performed By: #### L 503.7505, L100.0100, L300.3900, L501.9100, L505.5000, L500.4050 ####[facility] [address] [place], [address] Laboratory - Chemistry and C hemistry - challengeOrdered By: Nam Jaimes on 05-22-2025 AST [Catalytic activity/Vol] 18 U/L <38 [facility] MCV (mean corpuscular volume ) determinationOrdered By: Nam Jaimes on 05-22-2025 MCV (RBC) [Entitic vol] 88.8 fL 80-94 [facility] Magnesiumon 05-22-2025 Magnesium [Mass/Vol] 2.1 mg/dL Normal 1.5-2.2 [facility] Comment on above: Performed By: #### L 499.0043 #### [facility] [address] [place], [place], [id number] Magnesium measurement (mass/ volume)Ordered By: Jonn Adams on 05-22-2025 Magnesium (Unsp spec) [Mass/Vol] 2.1 mg/dL 1.5-2.2 [facility] Mean corpuscular hemoglobin (MCH) determinationOrdered By: Nam Jaimes on 05-22-2025 MCH (RBC) [Entitic mass] 29.1 pg 27.0-32.0 [facility] Mean corpuscular hemoglobin concentration (MCHC) determinationOrdered By: Nam Jaimes on 05-22-2025 MCHC (RBC) [Mass/Vol] 32.7 g/dL 32-36 [facility] Mean platelet volume determi nationOrdered By: Nam Jaimes on 05-22-2025 Platelet mean volume (Bld) [Entitic vol] 11.5 fL 6.2-12.0 [facility] Microscopic analysis of urin e for red blood cells (RBC)Ordered By: Nam Jaimes on 05-22-2025 Microscopic analysis of urine for red blood cells (RBC) 0-5 SEEN /hpf 0-5 [facility] Monocyte percentageOrdered B y: Nam Jaimes on 05-22-2025 Monocytes/100 WBC (Bld) 7.3 % 0-10 [facility] Mucus LM Ql (Urine sed)Order ed By: Nam Jaimes on 05-22-2025 Mucus Ql (Urine sed) 0 SEEN /hpf [facility] Natriuretic peptide.B prohor darren N-Terminal [Mass/volume] in Serum or PlasmaOrdered By: Nam Jaimes on 05-22-2025 Natriuretic peptide.B prohormone N-Terminal [Mass/Vol] 4303 pg/mL High <1800 [facility] Comment on above: Heart Failure Unlike ly: < 300 pg/mLHeart Failure Likely< 50 Years: > 450 pg/mL50-75 Years: > 900 pg/mL>75 Years: > 1800 pg/mL Neutrophil percentageOrdered By: Nam Jaimes on 05-22-2025 Neutrophils/100 WBC (Bld) 78.5 % High 47-70 [facility] Nitrite Test strip Ql (U)Ord ered By: Nam Jaimes on 05-22-2025 Nitrite Ql (U) Negative Negative [facility] No Panel InformationOrdered By: Nam Jaimes on 05-22-2025 Urine Buprenorphine Qualitative Negative < 200 ng/mL [facility] Urine Oxycodone Screen Negative < 100 ng/mL [facility] Nucleated red blood cell per centageOrdered By: Nam Jaimes on 05-22-2025 Nucleated RBC/100 WBC (Bld) [Ratio] 0 % 0-5 [facility] Phosphoruson 05-22-2025 Phosphate [Mass/Vol] 2.9 mg/dL Normal 2.7-4.5 [facility] Comment on above: Performed By: #### L 499.0043 #### [facility] [address] [place], [address] Platelet countOrdered By: Al Jaimes on 05-22-2025 Platelets (Bld) [#/Vol] 204 10*3/uL 150-450 [facility] Potassium measurement (mass/ volume)Ordered By: Nam Jaimes on 05-22-2025 Potassium (Unsp spec) [Mass/Vol] 3.8 mmol/L 3.3-5.1 [facility] Protein Test strip Ql (U)Ord ered By: Nam Jaimes on 05-22-2025 Protein Ql (U) 15 mg/dl High Negative [facility] Prothrombin Time w/INRon INR Coag (PPP) [Relative time] 1.2 {INR} Normal [facility] Comment on above: Performed By: #### L 503.7505, L100.0100, L300.3900, L501.9100, L505.5000, L500.4050 ####[facility] [address] [place], [address] PT Coag (PPP) [Time] 15.3 s High 11.7-14.9 [facility] Comment on above: Performed By: #### L 503.7505, L100.0100, L300.3900, L501.9100, L505.5000, L500.4050 ####[facility] [address] [place], [address] Prothrombin timeOrdered By: Nam Jaimes on 05-22-2025 PT Coag (PPP) [Time] 15.3 s High 11.7-14.9 [facility] Quantitative urine opiates m easurementOrdered By: Nam Jaimes on 05-22-2025 Opiates Ql (U) Negative < 300 ng/mL [facility] RBC Auto (Bld) [#/Vol]Ordere d By: Nam Jaimes on 05-22-2025 RBC (Bld) [#/Vol] 4.47 10*6/uL Low 4.6-6.2 [facility] Screening urine fentanyl tati surementOrdered By: Nam Jaimes on 05-22-2025 fentaNYL Screen Ql (U) Negative [facility] Serum creatinine measurement (mass/volume)Ordered By: Nam Jaimes on 05-22-2025 Creatinine [Mass/Vol] 1.26 mg/dL High 0.70-1.20 [facility] Serum globulin measurementOr dered By: Nam Jaimes on 05-22-2025 Globulin (S) [Mass/Vol] 3.5 g/dL 2.2-4.2 [facility] Serum glucose measurement (m ass/volume)Ordered By: Nam Jaimes on 05-22-2025 Glucose [Mass/Vol] 118 mg/dL High 70-99 [facility] Serum or plasma alanine forrester otransferase (ALT) measurementOrdered By: Nam Jaimes on 05-22-2025 ALT [Catalytic activity/Vol] 12 U/L <47 [facility] Serum or plasma albumin lakeshia urement (mass/volume)Ordered By: Nam Jaimes on 05-22-2025 Albumin [Mass/Vol] 4.2 g/dL 3.4-4.8 [facility] Serum or plasma albumin/glob ulin mass ratioOrdered By: Nam Jaimes on 05-22-2025 Albumin/Globulin [Mass ratio] 1.2 {ratio} 0.9-2.4 [facility] Serum or plasma alkaline jerrell sphatase measurementOrdered By: Nam Jaimes on 05-22-2025 ALP [Catalytic activity/Vol] 77 U/L 40-129 [facility] Serum or plasma calcium lakeshia urement (mass/volume)Ordered By: Nam Jaimes on 05-22-2025 Calcium [Mass/Vol] 9.6 mg/dL 7.6-11.0 [facility] Serum or plasma ethanol lakeshia urement (mass/volume)Ordered By: Nam Jaimes on 05-22-2025 Ethanol [Mass/Vol] mg/dL <10.1 [facility] Comment on above: This test is for med ical purposes only. The legal definition of intoxication varies according to local law. Serum or plasma urea nitroge n measurement (mass/volume)Ordered By: Nam Jaimes on 05-22-2025 Urea nitrogen [Mass/Vol] 18 mg/dL 4-19 [facility] Sodium levelOrdered By: Nam Jaimes on 05-22-2025 Sodium [Moles/Vol] 143 mmol/L 133-145 [facility] Squamous epithelial cells de tection in urine sediment by light microscopyOrdered By: Nam Jaimes on 05-22-2025 Epithelial cells.squamous LM Ql (Urine sed) 0 SEEN /hpf 0-5 [facility] Total proteinOrdered By: Kaushik Jaimes on 05-22-2025 Protein [Mass/Vol] 7.8 g/dL 5.9-8.4 [facility] Troponin T.cardiac [Mass/vol ume] in Serum or Plasma by High sensitivity methodOrdered By: Nam Jaimes on 05-22-2025 Troponin T.cardiac High sensitivity method [Mass/Vol] 12 ng/L <22 [facility] Troponin T.cardiac High sensitivity method [Mass/Vol] 13 ng/L <22 [facility] Troponin T.cardiac High sensitivity method [Mass/Vol] 14 ng/L <22 [facility] Comment on above: Delta: 12 on 5-1023 Urinalysis, Completeon 05-22 RBC 0-5 SEEN Normal 0-5 [facility] Comment on above: Order Comment: CLEAN CATCH Performed By: #### L 400.0001 #### [facility] [address] [place], [place], [id number] WBC 0-5 SEEN Normal 0-5 [facility] Comment on above: Order Comment: CLEAN CATCH Performed By: #### L 400.0001 #### [facility] [address] [place], [place], [id number] BACTERIA 0 SEEN Normal None Seen [facility] Comment on above: Order Comment: CLEAN CATCH Performed By: #### L 400.0001 #### [facility] [address] [place], [place], [id number] EPI,SQUAMOUS 0 SEEN Normal 0-5 [facility] Comment on above: Order Comment: CLEAN CATCH Performed By: #### L 400.0001 #### [facility] [address] [place], [address] Mucus Ql (Urine sed) 0 SEEN Normal [facility] Comment on above: Order Comment: CLEAN CATCH Performed By: #### L 400.0001 #### [facility] [address] [place] [address] Urine Drug Screen (VISTA)on 05-22-2025 AMPHETAMINES Negative Normal <1000 ng/mL [facility] Comment on above: Performed By: #### L 503.7505, L100.0100, L300.3900, L501.9100, L505.5000, L500.4050 ####[facility] [address] [place] [address] BARBITIURATES Negative Normal < 200 ng/mL [facility] Comment on above: Performed By: #### L 503.7505, L100.0100, L300.3900, L501.9100, L505.5000, L500.4050 ####[facility] [address] [place], [place], [phone] BENZODIAZIPINE Negative Normal < 200 ng/mL [facility] Comment on above: Performed By: #### L 503.7505, L100.0100, L300.3900, L501.9100, L505.5000, L500.4050 ####[facility] [address] [place] [address] BUP Ur Drug Scr Negative Normal < 200 ng/mL [facility] Comment on above: Performed By: #### L 503.7505, L100.0100, L300.3900, L501.9100, L505.5000, L500.4050 ####[facility] [address] [place] [id number] COCAINE Negative Normal < 300 ng/mL [facility] Comment on above: Performed By: #### L 503.7505, L100.0100, L300.3900, L501.9100, L505.5000, L500.4050 ####[facility] [address] [place], [address] Fentanyl Negative Normal [facility] Comment on above: Performed By: #### L 503.7505, L100.0100, L300.3900, L501.9100, L505.5000, L500.4050 ####[facility] [address] [place], [place], [phone] METHADONE Negative Normal < 300 ng/mL [facility] Comment on above: Performed By: #### L 503.7505, L100.0100, L300.3900, L501.9100, L505.5000, L500.4050 ####[facility] [address] [place], [phone] OPIATES Negative Normal < 300 ng/mL [facility] Comment on above: Performed By: #### L 503.7505, L100.0100, L300.3900, L501.9100, L505.5000, L500.4050 ####[facility] [address] [place] [address] OXYCODONE Negative Normal < 100 ng/mL [facility] Comment on above: Performed By: #### L 503.7505, L100.0100, L300.3900, L501.9100, L505.5000, L500.4050 ####[facility] [address] [place], [phone] PCP Negative Normal < 25 ng/mL [facility] Comment on above: Performed By: #### L 503.7505, L100.0100, L300.3900, L501.9100, L505.5000, L500.4050 ####[facility] [address] [place], [address] THC Negative Normal < 50 ng/mL [facility] Comment on above: Performed By: #### L 503.7505, L100.0100, L300.3900, L501.9100, L505.5000, L500.4050 ####[facility] [address] [place], [address] Urine benzodiazepine levelOr dered By: Nam Jaimes on 05-22-2025 Benzodiazepines Ql (U) Negative < 200 ng/mL [facility] Urine clarityOrdered By: Kaushik Jaimes on 05-22-2025 Clarity (U) Clear Clear [facility] Urine cocaine levelOrdered B y: Nam Jaimes on 05-22-2025 Cocaine Ql (U) Negative < 300 ng/mL [facility] Urine color determinationOrd ered By: Nam Jaimes on 05-22-2025 Color (U) Yellow Yellow [facility] Urine pkaen-5-rtulbqtsnuvoym abinol (THC) measurementOrdered By: Nam Jaimes on 05-22-2025 Cannabinoids Screen Ql (U) Negative < 50 ng/mL [facility] Urine glucose detectionOrder ed By: Nam Jaimes on 05-22-2025 Glucose Ql (U) Normal mg/dl Normal [facility] Urine leukocyte esterase det ection by dipstickOrdered By: Nam Jaimes on 05-22-2025 Leukocyte esterase Test strip Ql (U) Negative Negative [facility] Urine pHOrdered By: Nam Martínez ghvalentino on 05-22-2025 pH (U) 7.0 [pH] 5.0 - 8.0 [facility] Urine phencyclidine (PCP) de tectionOrdered By: Nam Jaimes on 05-22-2025 Phencyclidine Ql (U) Negative < 25 ng/mL [facility] Urine sediment bacteria coun t by microscopy (number/high power field)Ordered By: Nam Jaimes on 05-22-2025 Bacteria LM.HPF (Urine sed) [#/Area] 0 /[HPF] None Seen [facility] Urine specific gravity measu rementOrdered By: Nam Jaimes on 05-22-2025 Specific gravity (U) [Rel density] 1.010 1.002-1.030 [facility] Urine urobilinogen measureme ntOrdered By: Nam Jaimes on 05-22-2025 Urobilinogen Ql (U) Normal mg/dl Normal [facility] Venous blood ammonia measure mentOrdered By: Jonn Adams on 05-22-2025 Ammonia (P) [Moles/Vol] 11.0 umol/L Low 16-60 [facility] White blood cell (WBC) count Ordered By: Nam Jaimes on 05-22-2025 WBC (Bld) [#/Vol] 6.6 10*3/uL 4.4-11.0 [facility] White blood cell countOrdere d By: Nam Jaimes on 05-22-2025 White blood cell count 0-5 SEEN /hpf 0-5 [facility] Absolute lymphocyte countOrd ered By: Steven Hurst on 05-09-2025 Lymphocytes Auto (Unsp spec) [#/Vol] 1.02 10*3/uL 0.83-4.51 [facility] Absolute neutrophil countOrd ered By: Steven Hurst on 05-09-2025 Neutrophils (Bld) [#/Vol] 4.6 10*3/uL 2.0-7.7 [facility] Anion gap in Serum or Plasma Ordered By: Steven Hurst on 05-09-2025 Anion gap [Moles/Vol] 9 mmol/L 5-15 [facility] Automated lymphocyte count a s percentage of total leukocytesOrdered By: Steven Hurst on 05-09-2025 Lymphocytes/100 WBC Auto (Unsp spec) 16.0 % Low 19-41 [facility] BUN/creatinine ratioOrdered By: Steven Hurst on 05-09-2025 Urea nitrogen/Creatinine [Mass ratio] 14.8 mg/mg 10-20 [facility] Basic Metabolic Profile (BMP )on 05-09-2025 BUN/CRE 14.8 RATIO Normal - [facility] Comment on above: Performed By: #### L 400.0001 #### [facility] [address] [place], [address] Calcium [Mass/Vol] 9.5 mg/dL Normal 7.6-11.0 [facility] Comment on above: Performed By: #### L 400.0001 #### [facility] [address] [place], [address] Chloride [Moles/Vol] 105 mmol/L Normal 98-108 [facility] Comment on above: Performed By: #### L 400.0001 #### [facility] [address] [place], [address] CO2 [Moles/Vol] 26.9 mmol/L Normal 21.0-32.0 [facility] Comment on above: Performed By: #### L 400.0001 #### [facility] [address] [place], [address] Creatinine [Mass/Vol] 1.26 mg/dL High 0.70-1.20 [facility] Comment on above: Performed By: #### L 400.0001 #### [facility] [address] [place], [address] ECRCL 63.12 ml/min Normal 50-250 [facility] Comment on above: Performed By: #### L 400.0001 #### [facility] [address] [place], [address] GAP 9 Normal 5-15 [facility] Comment on above: Performed By: #### L 400.0001 #### [facility] [address] [place], [address] GFR/1.73 sq M.predicted among non-blacks MDRD (S/P/Bld) [Vol rate/Area] 59 mL/min/{1.73_m2} Low >60 [facility] Comment on above: Result Comment: mL/m in/1.73m2 CKD-EPI Creatinine Equation (2020) Performed By: #### L 400.0001 #### [facility] [address] [place], [address] Glucose [Mass/Vol] 110 mg/dL High 70-99 [facility] Comment on above: Performed By: #### L 400.0001 #### [facility] [address] [place], [address] Potassium [Moles/Vol] 4.4 mmol/L Normal 3.3-5.1 [facility] Comment on above: Performed By: #### L 400.0001 #### [facility] [address] [place], [address] Sodium [Moles/Vol] 141 mmol/L Normal 133-145 [facility] Comment on above: Performed By: #### L 400.0001 #### [facility] [address] [place], [address] Urea nitrogen [Mass/Vol] 19 mg/dL Normal 4-19 [facility] Comment on above: Performed By: #### L 400.0001 #### [facility] [address] [place], [address] Basophil percentageOrdered B y: Stevenivy Hurst on 05-09-2025 Basophils/100 WBC (Bld) 0.9 % 0-1 [facility] CBC W/Diff, Automatedon 04-16 Absolute Lymph 1.02 X10 3/uL Normal 0.83-4.51 [facility] Comment on above: Performed By: #### L 400.0001 #### [facility] [address] [place], [address] Absolute Neut 4.6 X10 3/uL Normal 2.0-7.7 [facility] Comment on above: Performed By: #### L [id number] #### [facility] [address] [place], [address] Basophils/100 WBC (Bld) 0.9 % Normal 0-1 [facility] Comment on above: Performed By: #### L 400.0001 #### [facility] [address] [place], [address] Eosinophils/100 WBC (Bld) 2.8 % Normal 0-5 [facility] Comment on above: Performed By: #### L 400.0001 #### [facility] [address] [place], [address] Erythrocyte distribution width (RBC) [Ratio] 14.6 % Normal 11.6-14.6 [facility] Comment on above: Performed By: #### L 400.0001 #### [facility] [address] [place], [address] Hematocrit (Bld) [Volume fraction] 38.7 % Low 40-54 [facility] Comment on above: Performed By: #### L 400.0001 #### [facility] [address] [place], [address] Hemoglobin (Bld) [Mass/Vol] 12.5 g/dL Low 13.0-16.5 [facility] Comment on above: Performed By: #### L 400.0001 #### [facility] [address] [place], [address] IG% 0.300 Normal 0.0-0.9 [facility] Comment on above: Result Comment: IG% - Immature Granulocytes (promyelocytes, myelocytes and metamyelocytes) > 1% indicates that a LEFT SHIFT is Present. Performed By: #### L 400.0001 #### [facility] [address] [place], [address] Lymphocytes/100 WBC (Bld) 16.0 % Low 19-41 [facility] Comment on above: Performed By: #### L 400.0001 #### [facility] [address] [place], [address] MCH (RBC) [Entitic mass] 28.9 pg Normal 27.0-32.0 [facility] Comment on above: Performed By: #### L 400.0001 #### [facility] [address] [place], [address] MCHC (RBC) [Mass/Vol] 32.3 g/dL Normal 32-36 [facility] Comment on above: Performed By: #### L 400.0001 #### [facility] [address] [place], [address] MCV (RBC) [Entitic vol] 89.6 fL Normal 80-[address] [facility] Comment on above: Performed By: #### L 400.0001 #### [facility] [address] [place], [address] Monocytes/100 WBC (Bld) 8.2 % Normal 0-[address] [facility] Comment on above: Performed By: #### L 400.0001 #### [facility] [address] [place], [address] Neutrophils/100 WBC (Bld) 71.8 % High 47-70 [facility] Comment on above: Performed By: #### L 400.0001 #### [facility] [address] [place], [address] Nucleated RBC (Bld) [#/Vol] 0 10*3/uL Normal 0-5 [facility] Comment on above: Performed By: #### L 400.0001 #### [facility] [address] [place], [address] Platelet mean volume (Bld) [Entitic vol] 10.6 fL Normal 6.2-12.0 [facility] Comment on above: Performed By: #### L 400.0001 #### [facility] [address] [place], [address] Platelets (Bld) [#/Vol] 186 10*3/uL Normal 150-450 [facility] Comment on above: Performed By: #### L 400.0001 #### [facility] [address] [place] [place], [address] RBC (Bld) [#/Vol] 4.32 10*6/uL Low 4.6-6.2 [facility] Comment on above: Performed By: #### L 400.0001 #### [facility] [address] [place], [address] RDW SD 47.8 fl High 35.1-43.9 [facility] Comment on above: Performed By: #### L 400.0001 #### [facility] [address] [place], [address] WBC (Bld) [#/Vol] 6.4 10*3/uL Normal 4.4-11.0 [facility] Comment on above: Performed By: #### L 400.0001 #### [facility] [address] [place], [place], [address] Carbon dioxide, total [Moles /volume] in Central venous bloodOrdered By: Steven Hurst on 05-09-2025 CO2 [Moles/Vol] 26.9 mmol/L 21.0-32.0 [facility] Chest 1 View (Portable)on Chest 1 View (Portable) [facility] Imaging Services [address] [facility] [place], [place] [address] Chest 1 View (Portable) MR#: [id number] Acct: [id number] Name: LISSET FARMER Rep #: [id number] : 1950 M 75 From: Rodríguez Adams PCP: Dr. Lisset Barrera DO Status: PRE ER Study: Chest 1 View (Portable) Date of Exam: 05/09/25 Exam# [id number] Ordering Dr: Steven Hurst DO PROCEDURE: CHEST 1 VIEW (PORTABLE) [...] acute osseous process is seen. Reading Location: [place] [address] CC: Dr. Lisset Barrera DO; Dr. Steven Hurst DO Senior Manufacturing Test Engineer: Signed Normal [facility] Chloride assayOrdered By: Brett Hurst on 05-09-2025 Chloride [Moles/Vol] 105 mmol/L 98-108 [facility] Emergency Department Summary on 05-09-2025 Emergency Department Summary [facility] Medical Records Department [address] [place] [address] Emergency Department Summary 05/09/25 MR#: [id number] Acct: [id number] Name: LISSET FARMER Rep #: [id number] : 1950 75 From: Steven Hurst DO PCP: Dr. Lisset Barrera DO Status:REG ER Location: ED HPI History of Present Illness Chief Complaint: Palpitations Narrative Narrative: Patient is a 75-year-old male with a past medical history of prostate cancer, pancytopenia, KATHY, hypertension who presented to the emergency department and he states that he has no idea why he is here. He states that he was following up with a lung doctor today and has no idea why he was following up with them either. Patient states that he has Aps[place] no complaints at this point in time. [facility] Medical History Prostate cancer Elevated PSA Kidney stones Hematuria Pancytopenia High risk medication use KATHY (obstructive sleep apnea) Fatty liver disease Agranulocytosis secondary to cancer chemotherapy Drug induced neutropenia Hairy cell leukemia Obesity Hypertension Sleep apnea Home Medications ???Medication ???Instructions ???Recorded ???Last Taken ???Type lisinopril 40 mg tablet 40 mg PO DAILY bp 12/09/1505/09/ 5 History calcium 250 mg (as 1 ea PO BID 10/29/20 05/09/25 Hist ory carbonate)-vitamin D3 3.125 mcg (125 unit) tablet metoprolol tartrate 50 mg tablet 50 mg PO DAILY 04/26/24 05/09/25 H istory amlodipine 10 mg tablet 10 mg PO QDAY 05/09/25 05/09/25 Hi story apixaban 5 mg tablet (Eliquis) 5 mg PO BID 30 days #60 tabs 05/09 Unknown Rx Allergy/AdvReac Type Severity Reaction Status [...] follow commands knew that he was at [facility] year is 2024 Skin: Warm, dry, [...] had new onset atrial fibrillation. She states (more content not included)... Normal [facility] Eosinophil percentageOrdered By: Steven Hurst on 05-09-2025 Eosinophils/100 WBC (Bld) 2.8 % 0-5 [facility] Erythrocyte distribution wid th ratioOrdered By: Steven Hurst on 05-09-2025 Erythrocyte distribution width (RBC) [Ratio] 14.6 % 11.6-14.6 [facility] Erythrocyte distribution wid th standard deviationOrdered By: Steven Hurst on 05-09-2025 Erythrocyte distribution width (RBC) [Ratio] 47.8 fl High 35.1-43.9 [facility] Free T3on 05-09-2025 Free T3 [Mass/Vol] 2.2 pg/mL Normal 2.18-3.98 [facility] Comment on above: Performed By: #### L 400.0001 #### [facility] [address] [place], [address] Free [id number] By: Steven holguin on 05-09-2025 Free T3 [Mass/Vol] 2.2 pg/mL 2.18-3.98 [facility] Glomerular filtration rate ( GFR) estimation/1.73 sq m using serum, plasma, or whole bOrdered By: Steven Hurst on 05-09-2025 GFR/1.73 sq M.predicted among non-blacks MDRD (S/P/Bld) [Vol rate/Area] 59 mL/min/{1.73_m2} Low >60 [facility] Comment on above: mL/min/1.73m2 CKD-EP I Creatinine Equation (2020) Hematocrit Auto (Bld) [Volum e fraction]Ordered By: Steven Hurst on 05-09-2025 Hematocrit (Bld) [Volume fraction] 38.7 % Low 40-54 [facility] Hemoglobin measurementOrdere d By: Steven Hurst on 05-09-2025 Hemoglobin (Bld) [Mass/Vol] 12.5 g/dL Low 13.0-16.5 [facility] Immature granulocytes/100 WB C Auto (Bld)Ordered By: Steven Hurst on 05-09-2025 Immature granulocytes/100 WBC (Bld) 0.300 % 0.0-0.9 [facility] Comment on above: IG% - Immature Granu locytes (promyelocytes, myelocytes and metamyelocytes) > 1% indicates that a LEFT SHIFT is Present. L499.0042on 05-09-2025 Trop T High Sen 10 ng/L Normal <=22 [facility] Comment on above: Performed By: #### L 499.0042 ####[facility] [address] [facility] [address] L499.0043on 05-09-2025 Trop T High Sen Normal <=22 [facility] Comment on above: Result Comment: PT D ISCHARGED Performed By: #### L 499.0043 #### [facility] [address] [facility] [address] L501.4021on 05-09-2025 Trop T High Sen 12 ng/L Normal <=22 [facility] Comment on above: Performed By: #### L 400.0001 #### [facility] [address] [facility]. [place] [id number] MCV (mean corpuscular volume ) determinationOrdered By: Steven Hurst on 05-09-2025 MCV (RBC) [Entitic vol] 89.6 fL 80-94 [facility] Mean corpuscular hemoglobin (MCH) determinationOrdered By: Steven Hurst on 05-09-2025 MCH (RBC) [Entitic mass] 28.9 pg 27.0-32.0 [facility] Mean corpuscular hemoglobin concentration (MCHC) determinationOrdered By: Steven Hurst on 05-09-2025 MCHC (RBC) [Mass/Vol] 32.3 g/dL 32-36 [facility] Mean platelet volume determi nationOrdered By: Steven Hurst on 05-09-2025 Platelet mean volume (Bld) [Entitic vol] 10.6 fL 6.2-12.0 [facility] Monocyte percentageOrdered B y: Steven Hurst on 05-09-2025 Monocytes/100 WBC (Bld) 8.2 % 0-10 [facility] Neutrophil percentageOrdered By: Steven Hurst on 05-09-2025 Neutrophils/100 WBC (Bld) 71.8 % High 47-70 [facility] Nucleated red blood cell per centageOrdered By: Steven Hurst on 05-09-2025 Nucleated RBC/100 WBC (Bld) [Ratio] 0 % 0-5 [facility] Platelet countOrdered By: Brett Hurst on 05-09-2025 Platelets (Bld) [#/Vol] 186 10*3/uL 150-450 [facility] Potassium measurement (mass/ volume)Ordered By: Steven Hurst on 05-09-2025 Potassium (Unsp spec) [Mass/Vol] 4.4 mmol/L 3.3-5.1 [facility] Pulmonary Visit Reporton Pulmonary Visit Report [facility] [place] [address] [place], [place] [address] OFFICE VISIT Date of Service: 05/09/25 MR#: [id number] Acct: [id number] Name: LISSET FARMER Rep #: [id number] : 1950 Provider: BINA Zamora Age/Sex: 75/M Location: [facility] Status: Signed Assessment and Plan Assessment and Plan (1) Irregular heart rhythm: Status: Acute Plan: New. I called and spoke to Dr Lisset Barrera, he confirmed that the patient has not been know to be in an irregular rhythm. He is not on anticoagulation. Dr Barrera is not in the office to see the patient today. We agree that he should be seen in the ED for evaluation. I then called over to [facility] ED and gave a report to one of the physicians. He was accompanied over to ED. (2) KATHY (obstructive sleep apnea): Status: Chronic Plan: He is using and benefiting from Pap therapy. No indication for titration study at this time. Contact the office for any new or worsening symptoms in the meantime. Follow-up in 6 months. (3) Obesity: Status: Chronic Qualifiers: Obesity type: due to excess calories Obesity severity: morbid Obesity classification: adult class 1 (BMI 30 - 34.9) Serious obesity comorbidity presence: with serious comorbidity Body mass index: BMI 33.0-33.9 Qualified Code(s): E66.811 - Obesity, class 1; E66.09 - Other obesity due to excess calories; Z68.33 - Body mass index [BMI] 33.0-33.9, adult Plan: Complicates exam, plan, care and prognosis. Weight loss would have a positive impact on his sleep apnea, and perhaps reduce the residual AHI into optimal range. Encouraged weight loss. Plan Details Additional Comments: This note was generated with [employer] dictation software. It may contain incorrect words, spelling, and punctuation that were not noted in checking the note before signing. Follow Up: 6 Months HPI 1 Y FU Chief Complaint: routine follow up HPI Comments Details: This patient presents to the office today for routine follow-up of his obstructive sleep apnea. He is ambulatory and currently on room air. He has not recently been seen in the ED or urgent care for any respiratory illness. He has not required any antibiotics or prednisone for any breathing problems. If you recall, he is a lifelong never smoker. He denies any difficulty with shortness of breath. He denies any cough, sputum production or hemoptysis. He denies any wheezing, chest tightness, chest pain or palpitations. Has not had any fever, chills or body aches. Patient reports waking up feeling rested refreshed with use of PAP device. He is not having difficulty with dry mouth. He denies any difficulty with mask leaks. He denies difficulty with excessive nocturia. He is not falling off to sleep unintentionally. He does admit to an occasional nap, that is purposeful. He is not having difficulty with morning headaches. Compliance report for the past 30 days shows 100 % compliance with an average use of 4 hours and 56 minutes per night. Current setting is 17 cmH2O with a residual AHI of 6.0 events per hour. Intake Vital Signs 04/26/24 07:42 08/03/24 14:31 05/09/25 07:47 Height 5 ft 11 in 5 ft 11 in 5 ft 11 in Weight: 238 lb BMI 33.2 BP 136/96 H Blood Pressure Location Lt brachial Position Sitting Respiration 18 Pulse 61 Pulse Source Monitor Temp 97.4 F L Temperature Source Temporal Artery Pulse Oximetry (%) 94 Oxygen Delivery Method room air Intake Visit Reasons: 1 Y FU Chief Complaint: port removal Questioned Documents Examiner Required: No DME Vendor: [employer] Accompanied by: Self Allergies sulfamethoxazole (From Bactrim) Adverse Reaction (Intermediate, Verified 05/09/25 09:01) Rash trimethoprim (From Bactrim) Adverse Reaction (Intermediate, Verified 05/09/25 09:01) Rash Medications ???Medication ???Instructions ???Recorded ???Confirmed ???Type lisinopril 40 mg tablet 40 mg PO DAILY bp 12/09/15 5 History calcium 250 mg (as 1 ea PO BID 10/29/20 05/09/25 Hist ory carbonate)-vitamin D3 3.125 mcg (125 unit) tablet metoprolol tartrate 50 mg tablet 50 mg PO DAILY 04/26/24 05/09/25 H istory amlodipine 10 mg tablet 10 mg PO QDAY 05/09/25 05/09/25 Hi story Have you fallen in the past year?: No PFSH Medical History Prostate cancer Elevated PSA Kidney stones Hematuria Pancytopenia High risk medication use KATHY (obstructive sleep apnea) Fatty liver disease Agranulocytosis secondary to cancer chemotherapy Drug induced neutropenia Hairy cell leukemia Obesity Hypertension Sleep apnea Surgical History History of prostate biopsy Basal cell carcinoma of nose Family History (Reviewed 05/09/25 @ 10 (more content not included)... Normal [facility] RBC Auto (Bld) [#/Vol]Ordere d By: Steven Hurst on 05-09-2025 RBC (Bld) [#/Vol] 4.32 10*6/uL Low 4.6-6.2 [facility] Serum creatinine measurement (mass/volume)Ordered By: Steven Hurst on 05-09-2025 Creatinine [Mass/Vol] 1.26 mg/dL High 0.70-1.20 [facility] Serum glucose measurement (m ass/volume)Ordered By: Steven Hurst on 05-09-2025 Glucose [Mass/Vol] 110 mg/dL High 70-99 [facility] Serum or plasma calcium lakeshia urement (mass/volume)Ordered By: Steven Hurst on 05-09-2025 Calcium [Mass/Vol] 9.5 mg/dL 7.6-11.0 [facility] Serum or plasma urea nitroge n measurement (mass/volume)Ordered By: Steven Hurst on 05-09-2025 Urea nitrogen [Mass/Vol] 19 mg/dL 4-19 [facility] Sodium levelOrdered By: Willis Hurst on 05-09-2025 Sodium [Moles/Vol] 141 mmol/L 133-145 [facility] T4 Free Directon 05-09-2025 T4 FREE DIRECT 1.10 ng/dL Normal 0.76-1.46 [facility] Comment on above: Performed By: #### L 501.91321, L506.0400, L501.9520 ####[facility] [address] [place], [place], [id number] T4 freeOrdered By: Steven holguin on 05-09-2025 Free T4 [Mass/Vol] 1.10 ng/dL 0.76-1.46 [facility] TSH DL <= 0.005 mIU/L QnOrde red By: Steven Hurst on 05-09-2025 TSH Qn 0.829 uIU/mL 0.300-4.200 [facility] Thyroid Stim Hormone (TSH)on 05-09-2025 TSH 0.829 uIU/mL Normal 0.300-4.200 [facility] Comment on above: Performed By: #### L 400.0001 #### [facility] [address] [place], [place], [id number] Troponin T.cardiac [Mass/vol ume] in Serum or Plasma by High sensitivity methodOrdered By: Steven Hurst on 05-09-2025 Troponin T.cardiac High sensitivity method [Mass/Vol] 10 ng/L <22 [facility] Troponin T.cardiac High sensitivity method [Mass/Vol] 12 ng/L <22 [facility] White blood cell (WBC) count Ordered By: Steven Hurst on 05-09-2025 WBC (Bld) [#/Vol] 6.4 10*3/uL 4.4-11.0 [facility] PSA,Total- [employer] - PSA, DIAGNOSTIC 35.00 ng/mL High 0.00-4.00 [facility] Comment on above: Result Comment: This test was performed using the [employer] tPSA method. Measured values of a patient??sample can vary depending on the testing procedure used. PSA values determined on patient samples by different testing procedures cannot be used interchangeably. If there is a change in PSA assays while monitoring therapy, sequential testing should be performed to confirm baseline values. Performed By: #### L 501.9940 #### [facility] [address] [place], [place], [address] PSA,Total- [employer] - PSA, DIAGNOSTIC 19.60 ng/mL High 0.0-4.0 [facility] Comment on above: Result Comment: This test was performed using the TPSA assay method for the [employer] system. Values obtained with different assay methods cannot be used interchangably. When changing PSA assays in the course of monitoring a patient, additional sequential testing should be carried out to confirm baseline values. Performed By: #### L 501.9940 #### [facility] [address] [place], [address] Surgery Visit Reporton 08-31 Surgery Visit Report [facility] [address] [place] [address] OFFICE VISIT Date of Service: 08/31/24 MR#: [id number] Acct: [id number] Name: LISSET FARMER Rep #: [id number] : 1950 Provider: Dr. Kaiser alexander MD Age/Sex: 74/M Location: [facility] Status: Signed Intake Vital Signs 08/03/24 14:31 Height 5 ft 11 in Intake Visit Reasons: PORT REMOVAL Chief Complaint: port removal Questioned Documents Examiner Required: No Is patient in pain?: No [...] the subcut (more content not included)... Normal [facility] CBC W/Diff, Automatedon 07-16 Absolute Lymph 0.96 X10 3/uL Normal 0.83-4.51 [facility] Comment on above: Order Comment: CLEAN CATCH Performed By: #### L 400.0001 #### [facility] [address] [facility] [place], [address] Absolute Neut 4.1 X10 3/uL Normal 2.0-7.7 [facility] Comment on above: Order Comment: CLEAN CATCH Performed By: #### L 400.0001 #### [facility] [address] [facility] [place], [address] Basophils/100 WBC (Bld) 0.7 % Normal 0-1 [facility] Comment on above: Order Comment: CLEAN CATCH Performed By: #### L 400.0001 #### [facility] [address] [place], [address] Eosinophils/100 WBC (Bld) 3.7 % Normal 0-5 [facility] Comment on above: Order Comment: CLEAN CATCH Performed By: #### L 400.0001 #### [facility] [address] [place], [address] Erythrocyte distribution width (RBC) [Ratio] 14.0 % Normal 11.6-14.6 [facility] Comment on above: Order Comment: CLEAN CATCH Performed By: #### L 400.0001 #### [facility] [address] [place], [address] Hematocrit (Bld) [Volume fraction] 38.1 % Low 40-54 [facility] Comment on above: Order Comment: CLEAN CATCH Performed By: #### L [id number] #### [facility] [address] [place], [address] Hemoglobin (Bld) [Mass/Vol] 12.4 g/dL Low 13.0-16.5 [facility] Comment on above: Order Comment: CLEAN CATCH Performed By: #### L [id number] #### [facility] [address] [place], [address] IG% 0.300 Normal 0.0-0.9 [facility] Comment on above: Order Comment: CLEAN CATCH Result Comment: IG% - Immature Granulocytes (promyelocytes, myelocytes and metamyelocytes) > 1% indicates that a LEFT SHIFT is Present. Performed By: #### L [id number] #### [facility] [address] [place], [address] Lymphocytes/100 WBC (Bld) 16.2 % Low 19-41 [facility] Comment on above: Order Comment: CLEAN CATCH Performed By: #### L [id number] #### [facility] [address] [place], [address] MCH (RBC) [Entitic mass] 29.2 pg Normal 27.0-32.0 [facility] Comment on above: Order Comment: CLEAN CATCH Performed By: #### L [id number] #### [facility] [address] [place], [address] MCHC (RBC) [Mass/Vol] 32.5 g/dL Normal 32-36 [facility] Comment on above: Order Comment: CLEAN CATCH Performed By: #### L [id number] #### [facility] [address] [place], [address] MCV (RBC) [Entitic vol] 89.6 fL Normal 80-94 [facility] Comment on above: Order Comment: CLEAN CATCH Performed By: #### L [id number] #### [facility] [address] [place], [address] Monocytes/100 WBC (Bld) 9.5 % Normal 0-[address] [facility] Comment on above: Order Comment: CLEAN CATCH Performed By: #### L [id number] #### [facility] [address] [place], [address] Neutrophils/100 WBC (Bld) 69.6 % Normal 47-70 [facility] Comment on above: Order Comment: CLEAN CATCH Performed By: #### L [id number] #### [facility] [address] [place], [address] Nucleated RBC (Bld) [#/Vol] 0 10*3/uL Normal 0-5 [facility] Comment on above: Order Comment: CLEAN CATCH Performed By: #### L [id number] #### [facility] [address] [place], [address] Platelet mean volume (Bld) [Entitic vol] 10.3 fL Normal 6.2-12.0 [facility] Comment on above: Order Comment: CLEAN CATCH Performed By: #### L [id number] #### [facility] [address] [place], [address] Platelets (Bld) [#/Vol] 207 10*3/uL Normal 150-450 [facility] Comment on above: Order Comment: CLEAN CATCH Performed By: #### L [id number] #### [facility] [address] [place], [address] RBC (Bld) [#/Vol] 4.25 10*6/uL Low 4.6-6.2 [facility] Comment on above: Order Comment: CLEAN CATCH Performed By: #### L [id number] #### [facility] [address] [place], [address] RDW SD 45.2 fl High 35.1-43.9 [facility] Comment on above: Order Comment: CLEAN CATCH Performed By: #### L [id number] #### [facility] [address] [place], [address] WBC (Bld) [#/Vol] 5.9 10*3/uL Normal 4.4-11.0 [facility] Comment on above: Order Comment: CLEAN CATCH Performed By: #### L [id number] #### [facility] [address] [place], [address] Comprehensive Metabolic Prof ilon 08-03-2024 Albumin [Mass/Vol] 3.2 g/dL Normal 3.2-5.0 [facility] Comment on above: Order Comment: CLEAN CATCH Performed By: #### L [id number] #### [facility] [address] [place], [address] Albumin/Globulin [Mass ratio] 0.8 {ratio} Low 0.9-2.4 [facility] Comment on above: Order Comment: CLEAN CATCH Performed By: #### L [id number] #### [facility] [address] [place], [address] ALK P 77 U/L Normal 45-117 [facility] Comment on above: Order Comment: CLEAN CATCH Performed By: #### L [id number] #### [facility] [address] [place], [address] ALT [Catalytic activity/Vol] 19 U/L Normal 16-61 [facility] Comment on above: Order Comment: CLEAN CATCH Performed By: #### L [id number] #### [facility] [address] [place] [place], [address] AST [Catalytic activity/Vol] 13 U/L Low 15-37 [facility] Comment on above: Order Comment: CLEAN CATCH Performed By: #### L [id number] #### [facility] [address] [place], [address] Bilirubin [Mass/Vol] 0.40 mg/dL Normal 0.20-1.00 [facility] Comment on above: Order Comment: CLEAN CATCH Result Comment: For patients on eltrombopag therapy, use of Dimension [place] TBIL is not recommended. Performed By: #### L [id number] #### [facility] [address] [place], [address] BUN/CRE 19.0 RATIO Normal 10-20 [facility] Comment on above: Order Comment: CLEAN CATCH Performed By: #### L [id number] #### [facility] [address] [place], [address] CA,Total 9.2 mg/dL Normal 8.5-10.1 [facility] Comment on above: Order Comment: CLEAN CATCH Performed By: #### L [id number] #### [facility] [address] [place], [address] Chloride [Moles/Vol] 106 mmol/L Normal 98-107 [facility] Comment on above: Order Comment: CLEAN CATCH Performed By: #### L [id number] #### [facility] [address] [place], [address] CO2 [Moles/Vol] 27.0 mmol/L Normal 21.0-32.0 [facility] Comment on above: Order Comment: CLEAN CATCH Performed By: #### L [id number] #### [facility] [address] [place], [address] Creatinine [Mass/Vol] 1.05 mg/dL Normal 0.70-1.30 [facility] Comment on above: Order Comment: CLEAN CATCH Result Comment: The validity of the calculated GFR GFRAA in patients over 70 years has not been determined. Clinical correlation is essential. Performed By: #### L [id number] #### [facility] [address] [place], [address] ECRCL 76.57 ml/min Normal [facility] Comment on above: Order Comment: CLEAN CATCH Performed By: #### L [id number] #### [facility] [address] [place], [address] EST GFR - AA 89 mL/min Normal >60 [facility] Comment on above: Order Comment: CLEAN CATCH Result Comment: Afri can [place] GFR Calc Performed By: #### L [id number] #### [facility] [address] [place], [address] GAP 6 Normal 5-15 [facility] Comment on above: Order Comment: CLEAN CATCH Performed By: #### L [id number] #### [facility] [address] [place], [address] GFR/1.73 sq M.predicted among non-blacks MDRD (S/P/Bld) [Vol rate/Area] 73 mL/min/{1.73_m2} Normal >60 [facility] Comment on above: Order Comment: CLEAN CATCH Result Comment: Non- GFR Calc Performed By: #### L [id number] #### [facility] [address] [place], [address] Globulin (S) [Mass/Vol] 4.2 g/dL Normal 2.2-4.[address] [facility] Comment on above: Order Comment: CLEAN CATCH Performed By: #### L [id number] #### [facility] [address] [place], [address] Glucose [Mass/Vol] 124 mg/dL High 74-106 [facility] Comment on above: Order Comment: CLEAN CATCH Result Comment: Fast ing Glucose result from 100 to 125 mg/dL suggests IMPAIRED HOMEOSTASIS per A.D.A. criteria. Performed By: #### L [id number] #### [facility] [address] [place], [address] Potassium [Moles/Vol] 3.9 mmol/L Normal 3.5-5.1 [facility] Comment on above: Order Comment: CLEAN CATCH Performed By: #### L [id number] #### [facility] [address] [place], [address] Sodium [Moles/Vol] 139 mmol/L Normal 136-145 [facility] Comment on above: Order Comment: CLEAN CATCH Performed By: #### L [id number] #### [facility] [address] [place], [address] T PROT 7.4 g/dL Normal 6.4-8.2 [facility] Comment on above: Order Comment: CLEAN CATCH Performed By: #### L [id number] #### [facility] [address] [place], [address] Urea nitrogen [Mass/Vol] 20 mg/dL High 7-18 [facility] Comment on above: Order Comment: CLEAN CATCH Performed By: #### L [id number] #### [facility] [address] [place], [address] LDHon 08-03-2024 LDH 161 U/L Normal 87-241 [facility] Comment on above: Order Comment: CLEAN CATCH Performed By: #### L [id number] #### [facility] [address] [place], [address] Oncology Visit Reporton 07-16 Oncology Visit Report [facility] [address] [place] [address] OFFICE VISIT Date of Service: 08/03/24 1428 MR#: [id number] Acct: [id number] Name: LISSET FARMER Rep #: [id number] : 1950 From: Lele Denis MD Age/Sex: 74/M [place] [facility] [place]: Signed HPI Subjective Date of Service [...] Prostate biopsy o/n 01/24/2019 showed /Prostatic adenocarcinoma Ira (5+5). He has started hormonal therapy (Lupron [...] disease. Comes for follow up, feeling well. [facility] Medical History Prostate cancer Elevated PSA Kidney [...] Intake Vital Signs 04/26/24 07:42 08/03/24 14:29 09/19/24 14:31 Height 5 ft 11 in 5 [...] Total Bilirubin (more content not included)... Normal [facility] PSA,Total- Diagnosticon 07-16 PSA, DIAGNOSTIC 4.26 ng/mL High 0.0-4.0 [facility] Comment on above: Order Comment: CLEAN CATCH Result Comment: This test was performed using the TPSA assay method for the [employer] chemistry system. Values obtained with different assay methods cannot be used interchangably. When changing PSA assays in the course of monitoring a patient, additional sequential testing should be carried out to confirm baseline values. Performed By: #### L [id number] #### [facility] [address] [place], [place], [address] No Panel InformationOrdered By: ANDRA Hunt on 05-04-2023 Prostate Specific Antigen Total 9.82 ng/mL 0.0-4.0 [facility] Comment on above: This test was perfor med using the TPSA assay method for the[employer] chemistry system. Values obtained with differentassay methods cannot be used interchangably.When changing PSA assays in the course of monitoring apatient, additional sequential testing should be carriedout to confirm baseline values. Absolute lymphocyte counton 07-01-2022 Lymphocytes Auto (Unsp spec) [#/Vol] 0.86 10*3/uL 0.83-4.51 [facility] Work Phone: Basophil percentageon 2021 Basophils/100 WBC (Bld) 0.6 % 0-1 [facility] Work Phone: Bilirubin [Mass/Vol] 0.40 mg/dL 0.20-1.00 [facility] Work Phone: Comment on above: For patients on eltr ombopag therapy, use of Dimension [place] TBIL is not recommended. Chloride [Moles/Vol] 107 mmol/L 98-107 [facility] Work Phone: Eosinophils/100 WBC (Bld) 3.5 % 0-5 [facility] Work Phone: Glucose [Mass/Vol] 178 mg/dL 74-106 [facility] Work Phone: Comment on above: Fasting Glucose resu lt greater than or equal to 126 mg/dL suggests DIABETES MELLITUS per A.D.A. criteria. Neutrophils (Bld) [#/Vol] 3.5 10*3/uL 2.0-7.7 [facility] Work Phone: Neutrophils/100 WBC (Bld) 71.2 % 47-70 [facility] Work Phone: Potassium [Moles/Vol] 4.0 mmol/L 3.5-5.1 [facility] Work Phone: Protein [Mass/Vol] 7.3 g/dL 6.4-8.2 [facility] Work Phone: Sodium [Moles/Vol] 143 mmol/L 136-145 [facility] Work Phone: WBC (Bld) [#/Vol] 4.9 10*3/uL 4.4-11.0 [facility] Work Phone: Blood erythrocytes count (nu mber/volume)on 07-01-2022 RBC (Bld) [#/Vol] 4.05 10*6/uL 4.6-6.2 [facility] Work Phone: Blood hemoglobin measurement (mass/volume)on 07-01-2022 Hemoglobin (Bld) [Mass/Vol] 12.1 g/dL 13.0-16.5 [facility] Work Phone: Blood lymphocytes/100 leukoc yteson 07-01-2022 Lymphocytes/100 WBC (Bld) 17.7 % 19-41 [facility] Work Phone: Blood monocytes/100 leukocyt eson 07-01-2022 Monocytes/100 WBC (Bld) 6.6 % 0-10 [facility] Work Phone: [phone] Blood platelet mean volumeon 07-01-2022 Platelet mean volume (Bld) [Entitic vol] 10.6 fL 6.2-12.0 [facility] Work Phone: [phone] Determination of erythrocyte mean corpuscular volume (MCV)on 07-01-2022 MCV (RBC) [Entitic vol] 91.1 fL 80-94 [facility] Work Phone: [phone] Hematocrit Auto (Bld) [Volum e fraction]on 07-01-2022 Hematocrit (Bld) [Volume fraction] 36.9 % 40-54 [facility] Work Phone: [phone] Laboratory - Chemistry and C hemistry - challengeon 07-01-2022 ALP [Catalytic activity/Vol] 66 U/L 45-117 [facility] Work Phone: [phone] ALT [Catalytic activity/Vol] 30 U/L 16-61 [facility] Work Phone: [phone] CO2 [Moles/Vol] 27.0 mmol/L 21.0-32.0 [facility] Work Phone: [phone] Globulin (S) [Mass/Vol] 3.8 g/dL 2.2-4.2 [facility] Work Phone: [phone] Urea nitrogen/Creatinine [Mass ratio] 18.7 mg/mg 10-20 [facility] Work Phone: [phone] Laboratory - Hematology and Cell countson 07-01-2022 Erythrocyte distribution width (RBC) [Entitic vol] 46.7 fL 35.1-43.9 [facility] Work Phone: [phone] Erythrocyte distribution width (RBC) [Ratio] 13.9 % 11.6-14.6 [facility] Work Phone: [phone] Immature granulocytes/100 WBC (Bld) 0.400 % 0.0-0.9 [facility] Work Phone: [phone] Comment on above: IG% - Immature Granu locytes (promyelocytes, myelocytes and metamyelocytes) > 1% indicates that a LEFT SHIFT is Present. MCH (RBC) [Entitic mass] 29.9 pg 27.0-32.0 [facility] Work Phone: [phone] Nucleated RBC/100 WBC (Bld) [Ratio] 0 % 0-5 [facility] Work Phone: [phone] MCHC Auto (RBC) [Mass/Vol]on 07-01-2022 MCHC (RBC) [Mass/Vol] 32.8 g/dL 32-36 [facility] Work Phone: [phone] Panel Informationon 07-01 Estimated Creatinine Clearance Calc 66.46 ml/min [facility] Work Phone: [phone] Estimated GFR (MDRD) Amer 87 mL/min >60 [facility] Work Phone: [phone] Comment on above: GFR Calc Estimated GFR (MDRD) Non-Af Amer 72 mL/min >60 [facility] Work Phone: [phone] Comment on above: Non- GFR Calc Prostate Specific Antigen Total 22.50 ng/mL 0.0-4.0 [facility] Work Phone: [phone] Comment on above: This test was perfor med using the TPSA assay method for [employer] chemistry system. Values obtained with differentassay methods cannot be used interchangably.When changing PSA assays in the course of monitoring apatient, additional sequential testing should be carriedout to confirm baseline values. Platelets bldon 07-01-2022 Platelets (Bld) [#/Vol] 189 10*3/uL 150-450 [facility] Work Phone: [phone] Serum or plasma albumin lakeshia urement (mass/volume)on 07-01-2022 Albumin [Mass/Vol] 3.5 g/dL 3.2-5.0 [facility] Work Phone: [phone] Serum or plasma albumin/glob ulin mass ratioon 07-01-2022 Albumin/Globulin [Mass ratio] 0.9 {ratio} 0.9-2.4 [facility] Work Phone: [phone] Serum or plasma calcium lakeshia urement (mass/volume)on 07-01-2022 Calcium [Mass/Vol] 8.8 mg/dL 8.5-10.1 [facility] Work Phone: Serum or plasma creatinine m easurement (mass/volume)on 07-01-2022 Creatinine [Mass/Vol] 1.07 mg/dL 0.70-1.30 [facility] Work Phone: Comment on above: The validity of the calculated GFR & GFRAA in patients over 70 years has not been determined. Clinical correlation is essential. Serum or plasma urea nitroge n measurement (mass/volume)on 07-01-2022 Urea nitrogen [Mass/Vol] 20 mg/dL 7-18 [facility] Work Phone: Thin prep Papanicolaou smear with manual screeningon 07-01-2022 Thin prep Papanicolaou smear with manual screening 19 U/L 15-37 [facility] Work Phone: Thin prep Papanicolaou smear with manual screening 9 5-15 [facility] Work Phone: Thin prep Papanicolaou smear with manual screening 194 U/L 87-241 [facility] Work Phone: Whole blood hemoglobin A1c/t otal hemoglobin ratio (mass fraction)on 07-01-2022 HbA1c (Bld) [Mass fraction] 6.0 % 3.8-5.6 [facility] Work Phone: Comment on above: Normal < 5.7 % Predi abetic 5.7 - 6.4 % Diabetic >or= 6.5 % Please note range changes. Absolute lymphocyte counton 04-03-2022 Lymphocytes Auto (Unsp spec) [#/Vol] 1.02 10*3/uL 0.83-4.51 [facility] Work Phone: Basophil percentageon 2021 Basophils/100 WBC (Bld) 0.8 % 0-1 [facility] Work Phone: Bilirubin [Mass/Vol] 0.40 mg/dL 0.20-1.00 [facility] Work Phone: Comment on above: For patients on eltr ombopag therapy, use of Dimension [place] TBIL is not recommended. Chloride [Moles/Vol] 108 mmol/L 98-107 [facility] Work Phone: Eosinophils/100 WBC (Bld) 3.0 % 0-5 [facility] Work Phone: [phone] Glucose [Mass/Vol] 104 mg/dL 74-106 [facility] Work Phone: [phone] Comment on above: Fasting Glucose resu lt from 100 to 125 mg/dL suggests IMPAIRED HOMEOSTASIS per A.D.A. criteria. Neutrophils (Bld) [#/Vol] 3.4 10*3/uL 2.0-7.7 [facility] Work Phone: Neutrophils/100 WBC (Bld) 66.8 % 47-70 [facility] Work Phone: Potassium [Moles/Vol] 4.1 mmol/L 3.5-5.1 [facility] Work Phone: Protein [Mass/Vol] 7.4 g/dL 6.4-8.2 [facility] Work Phone: Sodium [Moles/Vol] 140 mmol/L 136-145 [facility] Work Phone: WBC (Bld) [#/Vol] 5.0 10*3/uL 4.4-11.0 [facility] Work [phone] Blood erythrocytes count (nu mber/volume)on 04-03-2022 RBC (Bld) [#/Vol] 4.20 10*6/uL 4.6-6.2 [facility] Work Phone: Blood hemoglobin measurement (mass/volume)on 04-03-2022 Hemoglobin (Bld) [Mass/Vol] 12.4 g/dL 13.0-16.5 [facility] Work [phone] Blood lymphocytes/100 leukoc yteson 04-03-2022 Lymphocytes/100 WBC (Bld) 20.3 % 19-41 [facility] Work Phone: Blood monocytes/100 leukocyt eson 04-03-2022 Monocytes/100 WBC (Bld) 8.7 % 0-10 [facility] Work Phone: Blood platelet mean volumeon 04-03-2022 Platelet mean volume (Bld) [Entitic vol] 10.4 fL 6.2-12.0 [facility] Work Phone: Determination of erythrocyte mean corpuscular volume (MCV)on 04-03-2022 MCV (RBC) [Entitic vol] 90.7 fL 80-94 [facility] Work Phone: Hematocrit Auto (Bld) [Volum e fraction]on 04-03-2022 Hematocrit (Bld) [Volume fraction] 38.1 % 40-54 [facility] Work Phone: Laboratory - Chemistry and C hemistry - challengeon 04-03-2022 ALP [Catalytic activity/Vol] 68 U/L 45-117 [facility] Work Phone: ALT [Catalytic activity/Vol] 25 U/L 16-61 [facility] Work Phone: CO2 [Moles/Vol] 29.0 mmol/L 21.0-32.0 [facility] Work Phone: Globulin (S) [Mass/Vol] 3.8 g/dL 2.2-4.2 [facility] Work Phone: [phone] Urea nitrogen/Creatinine [Mass ratio] 17.6 mg/mg 10-20 [facility] Work Phone: Laboratory - Hematology and Cell countson 04-03-2022 Erythrocyte distribution width (RBC) [Entitic vol] 46.5 fL 35.1-43.9 [facility] Work Phone: Erythrocyte distribution width (RBC) [Ratio] 13.9 % 11.6-14.6 [facility] Work Phone: Immature granulocytes/100 WBC (Bld) 0.400 % 0.0-0.9 [facility] Work Phone: Comment on above: IG% - Immature Granu locytes (promyelocytes, myelocytes and metamyelocytes) > 1% indicates that a LEFT SHIFT is Present. MCH (RBC) [Entitic mass] 29.5 pg 27.0-32.0 [facility] Work Phone: [phone] Nucleated RBC/100 WBC (Bld) [Ratio] 0 % 0-5 [facility] Work Phone: [phone] MCHC Auto (RBC) [Mass/Vol]on 04-03-2022 MCHC (RBC) [Mass/Vol] 32.5 g/dL 32-36 [facility] Work Phone: No Panel Informationon 04-03 Estimated Creatinine Clearance Calc 69.72 ml/min [facility] Work Phone: [phone] Estimated GFR (MDRD) Amer 92 mL/min >60 [facility] Work Phone: Comment on above: GFR Calc Estimated GFR (MDRD) Non-Af Amer 76 mL/min >60 [facility] Work Phone: [phone] Comment on above: Non- GFR Calc Prostate Specific Antigen Total 12.50 ng/mL 0.0-4.0 [facility] Work Phone: Comment on above: This test was perfor med using the TPSA assay method for the[facility] chemistry system. Values obtained with differentassay methods cannot be used interchangably.When changing PSA assays in the course of monitoring apatient, additional sequential testing should be carriedout to confirm baseline values. Platelets bldon 04-03-2022 Platelets (Bld) [#/Vol] 193 10*3/uL 150-450 [facility] Work Phone: [phone] Serum or plasma albumin [place] urement (mass/volume)on 04-03-2022 Albumin [Mass/Vol] 3.6 g/dL 3.2-5.0 [facility] Work Phone: [phone] Serum or plasma albumin/glob ulin mass ratioon 04-03-2022 Albumin/Globulin [Mass ratio] 0.9 {ratio} 0.9-2.4 [facility] Work Phone: Serum or plasma calcium lakeshia urement (mass/volume)on 04-03-2022 Calcium [Mass/Vol] 9.0 mg/dL 8.5-10.1 [facility] Work Phone: Serum or plasma creatinine m easurement (mass/volume)on 04-03-2022 Creatinine [Mass/Vol] 1.02 mg/dL 0.70-1.30 [facility] Work Phone: Comment on above: The validity of the calculated GFR & GFRAA in patients over 70 years has not been determined. Clinical correlation is essential. Serum or plasma urea nitroge n measurement (mass/volume)on 04-03-2022 Urea nitrogen [Mass/Vol] 18 mg/dL 7-18 [facility] Work Phone: Thin prep Papanicolaou smear with manual screeningon 04-03-2022 Thin prep Papanicolaou smear with manual screening 14 U/L 15-37 [facility] Work Phone: [phone] Thin prep Papanicolaou smear with manual screening 3 5-15 [facility] Work Phone: Thin prep Papanicolaou smear with manual screening 186 U/L 87-241 [facility] Work Phone: Basophil percentageon 2021 Testosterone [Mass/Vol] 10.98 ng/dL [facility] [facility] Work Phone: Comment on above: CENTRAL 90% REFERENC E RANGES MALE AGE <50 197.44 - 669.58 ng/dL MALE AGE > or = 50 187.72 - 684.19 ng/dL FEMALE AGE <50 8.38 - 35.01 ng/dL FEMALE AGE > or = 50 <7.00 - 35.92 ng/dL Effective as of 06/10/21 No Panel Informationon 01-14 Prostate Specific Antigen Total 9.21 ng/mL 0.0-4.0 [facility] Work Phone: Comment on above: This test was perfor med using the TPSA assay method for the[facility] system. Values obtained with differentassay methods cannot be used interchangably.When changing PSA assays in the course of monitoring apatient, additional sequential testing should be carriedout to confirm baseline values. Blood platelet adequacy dete ction by light microscopyon 06-15-2019 Platelets LM Ql (Bld) ADEQUATE ADEQ [facility] Work Phone: No Panel Informationon 06-15 Differential Comment SCANNED [facility] Work Phone: Review by pathologiston Pathologist review Byron (Unsp spec) [Interp] Reviewed [facility] Work Phone: Comment on above: Previous reported re sult: Zee dunn Edited by: DEVI on 06/16/19:7624Leukopenia and neutropenia.Clinical correlation necessary.Orville Mckay M.D. 06/16/19 AMENDED REPORT 06/16/19 1354 PATH REV previously reported as: Zee dunn Absolute reticulocyte counto n 06-01-2019 Reticulocytes (Bld) [#/Vol] 0.00 10*3/uL 0-5 [facility] Work Phone: Laboratory - Hematology and Cell countson 05-23-2019 Erythrocyte distribution width (RBC) [Ratio] 15.7 % 11.6-14.6 [facility] Work Phone: No Panel Informationon 05-23 Red Cell Distribution Width Diff 50.2 fl 35.1-43.9 [facility] Work Phone: Total cell counton 9 Cells counted Molgen (Bld/Tiss) [#] Not Reportable [facility] Work Phone: Vital Signs Date Time Vital Sign Value Performing Clinician Faci litelva 05-27-2025 14:51-0400 Body temperature 98.4 [degF] Dr. Lisset Barrera DO Work Phone: [facility] 05-27-2025 14:51-0400 Diastolic blood pressure 77 mm[Hg] Dr. Lisset Barrera DO Work Phone: [facility] 05-27-2025 14:51-0400 Heart rate 100 /min Dr. Lisset Barrera DO Work Phone: [facility] 05-27-2025 14:51-0400 Respiratory rate 18 /min Dr. Lisset Barrera DO Work Phone: [facility] 05-27-2025 14:51-0400 SaO2% (BldA) [Mass fraction] 98 % Dr. Lisset Barrera DO Work Phone: [facility] 05-27-2025 14:51-0400 Systolic blood pressure 117 mm[Hg] Dr. Lisset Barrera DO Work Phone: [facility] 05-27-2025 05:01-0400 Body mass index (BMI) [Ratio] 31.4 kg/m2 Dr. Lisset Barrera DO Work Phone: [facility] 05-27-2025 05:01-0400 Body weight [address] Lisset Barrera DO Work Phone: [facility] 05-23-2025 08:21-0400 Body height 180.[address] Lisset Barrera DO Work Phone: [facility] 05-23-2025 08:08-0400 Inhaled oxygen flow rate 2 L/min Dr. Lisset Barrera DO Work Phone: [facility] 05-22-2025 21:41-0400 Diastolic blood pressure 90 mm[Hg] Dr. Lisset Barrera DO Work Phone: [facility] 05-22-2025 21:41-0400 Heart rate 136 /min Dr. Lisset Barrera DO Work Phone: [facility] 05-22-2025 21:41-0400 Respiratory rate 15 /min Dr. Lisset Barrera DO Work Phone: [facility] 05-22-2025 21:41-0400 Systolic blood pressure 136 mm[Hg] Dr. Lisset Barrera DO Work Phone: [facility] 05-22-2025 21:20-0400 Body temperature 98 [degF] Dr. Lisset Barrera DO Work Phone: [facility] 05-22-2025 21:20-0400 SaO2% (BldA) [Mass fraction] 95 % Dr. Lisset Barrera DO Work Phone: [facility] 05-22-2025 17:03-0400 Body height 180.[address] Lisset Barrera DO Work Phone: [facility] 05-22-2025 17:03-0400 Body mass index (BMI) [Ratio] 32.1 kg/m2 Dr. Lisset Barrera DO Work Phone: [facility] 05-22-2025 17:03-0400 Body weight 104.[address] Lisset Barrera DO Work Phone: [facility] 05-09-2025 12:09-0400 Diastolic blood pressure 87 mm[Hg] Dr. Lisset Barrera DO Work Phone: [facility] 05-09-2025 12:09-0400 Heart rate 62 /min Dr. Lisset Barrera DO Work Phone: [facility] 05-09-2025 12:09-0400 Respiratory rate 22 /min Dr. Lisset Barrera DO Work Phone: [facility] 05-09-2025 12:09-0400 SaO2% (BldA) [Mass fraction] 98 % Dr. Lisset Barrera DO Work Phone: [facility] 05-09-2025 12:09-0400 Systolic blood pressure 127 mm[Hg] Dr. Lisset Barrera DO Work Phone: [facility] 05-09-2025 10:14-0400 Body mass index (BMI) [Ratio] 33 kg/m2 Dr. Lisset Barrera DO Work Phone: [facility] 05-09-2025 10:14-0400 Body weight 107.[address] Lisset Barrera DO Work Phone: [facility] 05-09-2025 09:52-0400 Body height 180.[address] Lisset Barrera DO Work Phone: [facility] 05-09-2025 09:52-0400 Body temperature 98.6 [degF] Dr. Lisset Barrera DO Work Phone: [facility] 05-09-2025 07:47-0400 Body mass index (BMI) [Ratio] 33.2 kg/m2 Dr. Lisset Barrera DO Work Phone: [facility] 05-09-2025 07:47-0400 Body temperature 97.4 [degF] Dr. Lisset Barrera DO Work Phone: [facility] 05-09-2025 07:47-0400 Body weight 107.[address] Lisset Barrera DO Work Phone: [facility] 05-09-2025 07:47-0400 Diastolic blood pressure 96 mm[Hg] Dr. Lisset Barrera DO Work Phone: [facility] 05-09-2025 07:47-0400 Heart rate 61 /min Dr. Lisset Barrera DO Work Phone: [facility] 05-09-2025 07:47-0400 Respiratory rate 18 /min Dr. Lisset Barrera DO Work Phone: [facility] 05-09-2025 07:47-0400 SaO2% (BldA) [Mass fraction] 94 % Dr. Lisset Barrera DO Work Phone: [facility] 05-09-2025 07:47-0400 Systolic blood pressure 136 mm[Hg] Dr. Lsiset Barrera DO Work Phone: [facility] 03-04-2023 05:49-0400 Body height 180.[address] Lisset Barrera Work Phone: [facility] 03-04-2023 05:49-0400 Body mass index (BMI) [Ratio] 33.5 kg/m2 Dr. Lisset Barrera Work Phone: [facility] 03-04-2023 05:49-0400 Body temperature 97.6 [degF] Dr. Lisset Barrera Work Phone: [facility] 03-04-2023 05:49-0400 Body weight 108.[address] Lisset Barrera Work Phone: [facility] 03-04-2023 05:49-0400 Diastolic blood pressure 82 mm[Hg] Dr. Lisset Barrera Work Phone: [facility] 03-04-2023 05:49-0400 Heart rate 64 /min Dr. Lisset Barrera Work Phone: [facility] 03-04-2023 05:49-0400 Respiratory rate 18 /min Dr. Lisset Barrera Work Phone: [facility] 03-04-2023 05:49-0400 SaO2% (BldA) [Mass fraction] 96 % Dr. Lisset Barrera Work Phone: [facility] 03-04-2023 05:49-0400 Systolic blood pressure 141 mm[Hg] Dr. Lisset Barrera Work Phone: [facility] 08-05-2022 09:53-0400 Body height 180.[address] Lisset Barrera Work Phone: [facility] Work Phone: 08-05-2022 09:48-0400 Body mass index (BMI) [Ratio] 33.3 kg/m2 Dr. Lisset Barrera Work Phone: [facility] Work Phone: 08-05-2022 09:48-0400 Body temperature 98.3 [degF] Dr. Lisset Barrera Work Phone: [facility] Work Phone: 08-05-2022 09:48-0400 Body weight 108.[address] Lisset Barrera Work Phone: [facility] Work Phone: 08-05-2022 09:48-0400 Diastolic blood pressure 85 mm[Hg] Dr. Lisset aBrrera Work Phone: [facility] Work Phone: 08-05-2022 09:48-0400 Heart rate 64 /min Dr. Lisset Barrera Work Phone: [facility] Work Phone: 08-05-2022 09:48-0400 Respiratory rate 15 /min Dr. Lisset Barrera Work Phone: [facility] Work Phone: 08-05-2022 09:48-0400 SaO2% (BldA) [Mass fraction] 95 % Dr. Lisset Barrera Work Phone: [facility] Work Phone: 08-05-2022 09:48-0400 Systolic blood pressure 144 mm[Hg] Dr. Lisset Barrera Work Phone: [facility] Work Phone: 07-23-2022 09:01-0400 Body mass index (BMI) [Ratio] 33.5 kg/m2 Dr. Lisset Barrera Work Phone: [facility] Work Phone: 07-23-2022 09:01-0400 Body temperature 97.7 [degF] Dr. Lisset Barrera Work Phone: [facility] Work Phone: 07-23-2022 09:01-0400 Body weight 109.[address] Lisset Barrera Work Phone: [facility] Work Phone: 07-23-2022 09:01-0400 Diastolic blood pressure 87 mm[Hg] Dr. Lisset Barrera Work Phone: [facility] Work Phone: 07-23-2022 09:01-0400 Heart rate 50 /min Dr. Lisset Barrera Work Phone: [facility] Work Phone: 07-23-2022 09:01-0400 Respiratory rate 18 /min Dr. Lisset Barrera Work Phone: [facility] Work Phone: 07-23-2022 09:01-0400 SaO2% (BldA) [Mass fraction] 96 % Dr. Lisset Barrera Work Phone: [facility] Work Phone: 07-23-2022 09:01-0400 Systolic blood pressure 147 mm[Hg] Dr. Lisset Barrera Work Phone: [facility] Work Phone: 07-02-2022 11:29-0400 Body height 180.[address] Lisset Barrera Work Phone: [facility] Work Phone: 07-02-2022 11:24-0400 Body mass index (BMI) [Ratio] 33.9 kg/m2 Dr. Lisset Barrera Work Phone: [facility] Work Phone: 07-02-2022 11:24-0400 Body temperature 98.4 [degF] Dr. Lisset Barrera Work Phone: [facility] Work Phone: 07-02-2022 11:24-0400 Body weight 110.[address] Lisset Barrera Work Phone: [facility] Work Phone: 07-02-2022 11:24-0400 Diastolic blood pressure 82 mm[Hg] Dr. Lisset Barrera Work Phone: [facility] Work Phone: 07-02-2022 11:24-0400 Heart rate 52 /min Dr. Lisset Barrera Work Phone: [facility] Work Phone: 07-02-2022 11:24-0400 Respiratory rate 15 /min Dr. Lisset Barrera Work Phone: [facility] Work Phone: 07-02-2022 11:24-0400 SaO2% (BldA) [Mass fraction] 94 % Dr. Lisset Barrera Work Phone: [facility] Work Phone: 07-02-2022 11:24-0400 Systolic blood pressure 154 mm[Hg] Dr. Lisset Barrera Work Phone: [facility] Work Phone: 04-09-2022 10:19-0400 Body mass index (BMI) [Ratio] 34.4 kg/m2 Dr. Lisset Barrera Work Phone: [facility] Work Phone: 04-09-2022 10:19-0400 Body temperature 98.2 [degF] Dr. Lisset Barrera Work Phone: [facility] Work Phone: 04-09-2022 10:19-0400 Body weight 112.[address] Lisset Barrera Work Phone: [facility] Work Phone: 04-09-2022 10:19-0400 Diastolic blood pressure 92 mm[Hg] Dr. Lisset Barrera Work Phone: [facility] Work Phone: 04-09-2022 10:19-0400 Heart rate 57 /min Dr. Lisset Barrear Work Phone: [facility] Work Phone: 04-09-2022 10:19-0400 Respiratory rate 16 /min Dr. Lisset Barrera Work Phone: [facility] Work Phone: 04-09-2022 10:19-0400 SaO2% (BldA) [Mass fraction] 96 % Dr. Lisset Barrera Work Phone: [facility] Work Phone: 04-09-2022 10:19-0400 Systolic blood pressure 158 mm[Hg] Dr. Lisset Barrera Work Phone: [facility] Work Phone: 04-09-2022 10:19-0400 Body height 180.[address] Lisset Barrera Work Phone: [facility] Work Phone: 04-09-2022 10:19-0400 Body mass index (BMI) [Ratio] 34.4 kg/m2 Dr. Lisset Barrera Work Phone: [facility] Work Phone: 04-09-2022 10:19-0400 Body temperature 98.2 [degF] Dr. Lisset Barrera Work Phone: [facility] Work Phone: 04-09-2022 10:19-0400 Body weight 112.[address] Lisset Barrera Work Phone: [facility] Work Phone: 04-09-2022 10:19-0400 Diastolic blood pressure 92 mm[Hg] Dr. Lisset Barrera Work Phone: [facility] Work Phone: 04-09-2022 10:19-0400 Heart rate 57 /min Dr. Lisset Barrera Work Phone: [facility] Work Phone: 04-09-2022 10:19-0400 Respiratory rate 16 /min Dr. Lisset Barrera Work Phone: [facility] Work Phone: 04-09-2022 10:19-0400 SaO2% (BldA) [Mass fraction] 96 % Dr. Lisset Barrera Work Phone: [facility] Work Phone: 04-09-2022 10:19-0400 Systolic blood pressure 158 mm[Hg] Dr. Lisset Barrera Work Phone: [facility] Work Phone: 01-21-2022 04:56-0500 Body mass index (BMI) [Ratio] 33.7 kg/m2 Dr. Lisset Barrera Work Phone: [facility] Work Phone: 01-21-2022 04:56-0500 Body temperature 97.7 [degF] Dr. Lisset Barrera Work Phone: [facility] Work Phone: 01-21-2022 04:56-0500 Body weight 109.[address] Lisset Barrera Work Phone: [facility] Work Phone: 01-21-2022 04:56-0500 Diastolic blood pressure 75 mm[Hg] Dr. Lisset Barrera Work Phone: [facility] Work Phone: 01-21-2022 04:56-0500 Heart rate 60 /min Dr. Lisset Barrera Work Phone: [facility] Work Phone: 01-21-2022 04:56-0500 Respiratory rate 18 /min Dr. Lisset Barrera Work Phone: [facility] Work Phone: 01-21-2022 04:56-0500 SaO2% (BldA) [Mass fraction] 97 % Dr. Lisset Barrera Work Phone: [facility] Work Phone: 01-21-2022 04:56-0500 Systolic blood pressure 122 mm[Hg] Dr. Lisset Barrera Work Phone: [facility] Work Phone: 10-29-2020 10:58-0500 Body mass index (BMI) [Ratio] 32.9 kg/m2 Dr. Lisset Barrera Work Phone: [facility] Work Phone: 10-29-2020 10:58-0500 Body temperature 97.8 [degF] Dr. Lisset Barrera Work Phone: [facility] Work Phone: 10-29-2020 10:58-0500 Body weight 107.[address] Lisset Barrera Work Phone: [facility] Work Phone: 10-29-2020 10:58-0500 Diastolic blood pressure 79 mm[Hg] Dr. Lisset Barrera Work Phone: [facility] Work Phone: 10-29-2020 10:58-0500 Heart rate 53 /min Dr. Lisset Barrera Work Phone: [facility] Work Phone: 10-29-2020 10:58-0500 Respiratory rate 16 /min Dr. Lisset Barrera Work Phone: [facility] Work Phone: 10-29-2020 10:58-0500 SaO2% (BldA) [Mass fraction] 97 % Dr. Lisset Barrera Work Phone: [facility] Work Phone: 10-29-2020 10:58-0500 Systolic blood pressure 139 mm[Hg] Dr. Lisset Barrera Work Phone: [facility] Work Phone: 10-29-2020 09:58-0500 Body mass index (BMI) [Ratio] 32.9 kg/m2 Dr. Lisset Barrera Work Phone: [facility] Work Phone: 10-29-2020 09:58-0500 Body temperature 97.8 [degF] Dr. Lisset Barrera Work Phone: [facility] Work Phone: 10-29-2020 09:58-0500 Body weight 107.[address] Lisset Barrera Work Phone: [facility] Work Phone: 10-29-2020 09:58-0500 Diastolic blood pressure 79 mm[Hg] Dr. Lisset Barrera Work Phone: [facility] Work Phone: 10-29-2020 09:58-0500 Heart rate 53 /min Dr. Lisset Barrera Work Phone: [facility] Work Phone: 10-29-2020 09:58-0500 Respiratory rate 16 /min Dr. Lisset Barrera Work Phone: [facility] Work Phone: 10-29-2020 09:58-0500 SaO2% (BldA) [Mass fraction] 97 % Dr. Lisset Barrera Work Phone: [facility] Work Phone: 10-29-2020 09:58-0500 Systolic blood pressure 139 mm[Hg] Dr. Lisset Barrera Work Phone: [facility] Work Phone: Encounters Encounter Date Encounter Type Care Provider Facility Start: 05-27-2025 Non-patient / Non-visit Dr. Lisset Saldivar DO [facility] Work Phone: Start: 05-26-2025 Non-patient / Non-visit Dr. Lisset Saldivar DO [facility] Work Phone: Start: 05-25-2025 Non-patient / Non-visit Dr. Lisset Saldivar DO [facility] Work Phone: Start: 05-24-2025 Non-patient / Non-visit Dr. Lisset Saldivar DO [facility] Work Phone: Start: 05-23-2025 Non-patient / Non-visit Dr. Lisset Saldivar DO [facility] Work Phone: Start: 05-23-2025 ambulatory [facility] Facility: [facility] Start: 05-23-2025 Non-patient / Non-visit Dr. Saud Echavarria MD -[facility] Start: 05-22-2025 ambulatory [facility] Facility: [facility] Start: 05-22-2025 End: 05-27-2025 Evaluation and management of inpatient Dr. Jonn Adams DO -Pro[facility] Unit Work Phone: Start: 05-09-2025 End: 05-09-2025 Emergency department patient visit Dr. Lisset Barrera DO Work Phone: -Emergency Department Work Phone: Start: 05-09-2025 End: 05-09-2025 Patient encounter procedure Janessa HARTMANC -[facility] Work Phone: Start: 05-09-2025 End: 05-09-[address] Lisset Barrera DO Work Phone: [facility] Work Phone: Start: 03-06-2025 End: 03-06-[address] Regan Guzman MD -Laboratory Work Phone: Start: 03-06-2025 End: 03-06-2025 ambulatory Regan Guzman Facility:[facility] Start: 11-30-2024 End: 11-30-2024 ambulatory [facility] Facility:[facility] Start: 08-31-2024 End: 08-31-2024 ambulatory [facility] Facility:[facility] Start: 09-25-2024 ambulatory Regan Sim lity:[facility] Start: 08-03-2024 End: 08-03-2024 ambulatory Lisset Barrera Facility:[facility] Start: 05-04-2023 End: 05-04-[address] Lisset Barrera Work Phone: [facility] Work Phone: Start: 05-04-2023 End: 05-04-[address] Lisset Barrera Work Phone: [facility]-Laboratory, [facility] Start: 03-04-2023 End: 03-04-[address] [facility] Start: 08-05-2022 End: 08-05-[address] Lisset Barrera Work Phone: [facility] Start: 08-03-2022 End: 08-03-[address] Lisset Barrera Work Phone: [facility] Work Phone: Start: 08-03-2022 End: 08-03-[address] [facility] Start: 07-23-2022 End: 07-23-[address] Lisset Barrera Work Phone: [facility] Start: 07-09-2022 End: 07-09-[address] Lisset Barrera Work Phone: [facility] Work Phone: Start: 07-09-2022 End: 07-09-[address] Lisset Barrera Work Phone: [facility]-Cat Scan, [facility] Start: 07-02-2022 End: 07-02-[address] Lisset Barrera Work Phone: [facility] Start: 07-01-[address] Lisset Barrera Work Phone: [facility] Start: 04-09-2022 End: 04-09-[address] Lisset Barrera Work Phone: [facility] Start: 04-07-2022 End: 04-07-[address] Lisset Barrera Work Phone: [facility]-Cat Scan, [facility] Start: 04-03-[address] Lisset Barrera Work Phone: [facility] Start: 01-21-2022 End: 01-21-[address] Lisset Barrera Work Phone: [facility]-Pulmonary Medicine [facility] Start: 01-14-2022 End: 01-14-[address] Lisset Barrera Work Phone: [facility]-Laboratory Procedures Date Procedure Procedure Detail Performing Clinician Start: 05-24-2025 CT angiography of head and neck Dr. Lisset Barrera DO Work Phone: Start: 05-23-2025 MRI of brain with contrast Dr. Lisset Barrera DO Work Phone: Start: 05-23-[address] Lisset Barrera DO Work Phone: Start: 05-23-2025 Prostate specific an tigen measurement Dr. Lisset Barrera DO Work Phone: Comment on above: Giuliano ECLIA methodol ogy.According to the [place] [employer], Serum PSAshould decrease and remain at undetectable levels afterradical prostatectomy. The AUA defines biochemicalrecurrence as an initial PSA value 0.2 ng/mL or greaterfollowed by a subsequent confirmatory PSA value 0.2 ng/mLor greater. Values obtained with different assay methods orkits cannot be used interchangeably. Results cannot beinterpreted as absolute evidence of the presence or absenceof malignant disease.Performed at: [facility] [id number] [place], [place] [id number] Director: Sean Emmanuel PhD, Phone: [phone] Start: 05-22-2025 Computed tomography of abdomen and pelvis with intravenous contrast Dr. Lisset Barrera DO Work Phone: Start: 05-22-2025 Serum inorganic phos phate measurement Dr. Lisset Barrera DO Work Phone: Start: 05-22-2025 Methadone measurement, urine Dr. Lisset Barrera DO Work Phone: Start: 05-22-2025 Urnls dip stick/tabl et reagent auto microscopy Dr. Lisset Barrera DO Work Phone: Start: 05-22-2025 X-ray of chest, PA a nd lateral views Dr. Lisset Barrera DO Work Phone: Start: 05-22-2025 CT of head without contrast Dr. Lisest Barrera DO Work Phone: Start: 05-22-[address] Lisset Barrera DO Work Phone: Start: 05-09-2025 Plain chest X-ray Dr. Kelly [...] Treatment Date Care Activity Detail Author Start: 05-27-2025 Patient discharge [facility] Start: 05-24-2025 Referral to occupati onal therapist [facility] Start: 05-24-2025 Referral to service [facility] Start: 05-23-2025 Care planning and pr oblem solving actions [facility] Start: 05-23-2025 Care planning and pr oblem solving actions [facility] Start: 05-22-2025 Ambulation without limitation [facility] Start: 05-22-2025 Assessment of risk o f venous thromboembolism [facility] Start: 05-22-2025 Insertion of cathete r into peripheral vein [facility] Start: 05-22-2025 Measuring intake and output [facility] Start: 05-22-2025 Providing care accor ding to standard [facility] Start: 05-22-2025 Referral to service [facility] Start: 05-22-2025 Speech therapy assessment [facility] Start: 05-22-2025 [facility] Start: 05-22-2025 Following clinical p athway protocol [facility] Start: 05-22-2025 Blood ammonia measurement [facility] Start: 05-22-2025 Computed tomography of abdomen and pelvis with intravenous contrast Abdomen/Pelvis W IV Cont ONLY [facility] Start: 05-22-2025 CT Abdomen and Pelvi s W contrast IV [facility] Start: 05-22-2025 MRI of brain with contrast Brain W/W O Contrast [facility] Start: 05-22-2025 MRI of brain without contrast Brain without [facility]rast [facility] [facility] Start: 05-22-2025 Prostate specific an tigen measurement [facility] Start: 05-22-2025 Hospital admission, emergency, from emergency room, medical nature [facility] Start: 05-22-2025 Verification routine [facility] Start: 05-22-2025 Admission procedure [facility] Start: 05-22-2025 [facility] Start: 05-22-2025 End: 05-22-2025 [facility] Start: 05-22-2025 Patient referral to dietitian [facility] Start: 05-09-2025 [facility] Start: 05-09-2025 End: 05-09-2025 [facility] Start: 07-09-2022 Venous catheter care management [facility] Work Phone: Start: 04-07-2022 Venous catheter care management [facility] Work Phone: Start: 01-14-2021 Venous catheter care management [facility] Work Phone: Start: 10-29-2020 Venous catheter care management [facility] Work Phone: Start: 06-15-2019 CT Abdomen and Pelvi s W contrast IV [facility] Work Phone: Start: 06-01-2019 Disease process or condition education [facility] Work Phone: Start: 06-01-2019 Medication administr ation assessment [facility] Work Phone: Start: 06-01-2019 Medication monitoring [facility] Work Phone: Start: 06-01-2019 Patient education [facility] Work Phone: Start: 06-01-2019 Precautionary procedure [facility] Work Phone: Start: 06-01-2019 Vital signs measurements [facility] Work Phone: Start: 06-01-2019 [facility] Work Phone: Start: 05-11-2019 Disease process or condition education [facility] Work Phone: Start: 05-11-2019 Medication administr ation assessment [facility] Work Phone: Start: 05-11-2019 Medication monitoring [facility] Work Phone: Start: 05-11-2019 Patient education [facility] Work Phone: Start: 05-11-2019 Precautionary procedure [facility] Work Phone: Start: 05-11-2019 Vital signs measurements [facility] Work Phone: Start: 05-11-2019 [facility] Start: 04-20-2019 Disease process or condition education [facility] Work Phone: Start: 04-20-2019 Medication administr ation assessment [facility] Work Phone: Start: 04-20-2019 Medication monitoring [facility] Work Phone: Start: 04-20-2019 Patient education [facility] Work Phone: Start: 04-20-2019 Precautionary procedure [facility] Work Phone: Start: 04-20-2019 Vital signs measurements [facility] Work Phone: Start: 04-20-2019 [facility]: Start: 03-30-2019 Disease process or condition education [facility] Work Phone: Start: 03-30-2019 Medication administr ation assessment [facility] Work Phone: Start: 03-30-2019 Medication monitoring [facility] Work Phone: Start: 03-30-2019 Patient education [facility] Work Phone: Start: 03-30-2019 Precautionary procedure [facility] Work Phone: Start: 03-30-2019 Vital signs measurements [facility] Work Phone: Start: 03-30-2019 [facility] Work [facility]: Start: 03-22-2019 [facility] Work Phone: Start: 03-09-2019 Disease process or condition education [facility] Work Phone: Start: 03-09-2019 Medication administr ation assessment [facility] Work Phone: Start: 03-09-2019 Medication monitoring [facility] Work Phone: Start: 03-09-2019 Patient education [facility] Work Phone: Start: 03-09-2019 Precautionary procedure [facility] Work Phone: Start: 03-09-2019 Vital signs measurements [facility] Work Phone: Start: 03-09-2019 [facility] Work Phone: Start: 03-02-2019 [facility] Work Phone: Start: 02-16-2019 Disease process or condition education [facility] Work Phone: Start: 02-16-2019 Medication administr ation assessment [facility] Work Phone: Start: 02-16-2019 Medication monitoring [facility] Work Phone: Start: 02-16-2019 Patient education [facility] Work Phone: Start: 02-16-2019 Precautionary procedure [facility] Work Phone: Start: 02-16-2019 Vital signs measurements [facility] Work Phone: Start: 02-16-2019 [facility] Work Phone: Start: 02-14-2019 [facility] Work Phone: NM Whole body Bone Views [facility] Work Phone: Patient referral [facility] Work Phone: Prostate specific Ag [Mass/volume] in Serum or Plasma [facility] Troponin T.cardiac [Mass/volume] in Serum or Plasma by High sensitivity method [facility] Troponin T.cardiac [Mass/volume] in Serum or Plasma by High sensitivity method [facility] Payers Date Payer Category Payer Self-pay [id number] 2015 Unknown [id number] 2015 Medicare [id number] Unknown [id number] 2.16.8 [id number] Unknown [id number] 2.16.8 [id number] Unknown [id number] 2.16.8 [id number] Unknown [id number] 2.16.8 [id number] Unknown [id number] 2.16.8 [id number] Unknown [id number] 2.16.8 [id number] Unknown [id number] 2.16.8 [id number] Unknown [id number] 2.16.8 [id number] Unknown [id number] 2.16.8 [id number] Unknown [id number] 2.16.8 [id number] Unknown [id number] 2.16.8 [id number] Unknown [id number] 2.16.8 [id number] Unknown [id number] 2.16.8 [id number] Social History Date Type Detail Facility Start: 01-14-2021 Tobacco smoking stat [facility] Unknown if ever smoked [facility] Start: 11-27-2015 None [facility] Start: 11-28-2015 Alone [facility] Start: 11-27-2015 Non-smoker [facility] Start: 1950 Sex Assigned At Male [facility] Start: 05-09-2025 End: 05-27-2025 Tobacco smoking status NHIS Never smoked tobacco (finding) [facility] Medical Equipment Procedure Code Equipment Code Equipment [...] port PORT,6FR POWER PORT FDA Start: 02-10-2019 Goals Date Patient Goal Desired Activity /State Functional Status Date Assessment Result Facility 05-27-2025 Functional status Ambulates [facility] Work Phone: Mental Status Date Assessment Result Facility 05-27-2025 Cognitive function Voice/Name [facility] Work Phone: 05-22-2025 Cognitive function Voice/Name [facility] Work Phone: 05-09-2025 Cognitive function Voice/Name [facility] Work Phone: 06-01-2019 Cognitive function Mood Descript ion Appropriate;Calm;Relaxed [facility] Work Phone: Clinical Notes 05-09-2025 to 05-27-2025 Note Date & Type Note Facility 05-27-2025 Hospital Discharg e instructions Additional Instructions Date of Discharge: 05/27/25 [facility] Work Phone: 05-27-2025 Progress note Note Date/Time May 27, 2025 11:47am [facility] Medical Records Department [address] [place] [address] Progress Note - Hospitalist 05/26/25 1856 MR#: [id number] Acct: [id number] Name: LISSET FARMER Rep #:[id number] : 1950 75 From: Lisset Saldivar DO PCP: Dr. Lisset Barrera, DO Status:ADM IN Location: [place] [address] Reason for Visit Reason for Visit: Diagnoses Unspecified atrial fibrillation (05/22/25) Cerebral infarction, unspecified (05/22/25) Altered mental status, unspecified (05/22/25) Subjective Subjective Patient was seen and examined today, his pulse rate appears to be controlled on no beta-eugenie. I have decided to add a small amount of metoprolol starting tonight and observe his response to this. Patient will most likely be able to go to the rehab unit tomorrow if he remains medically stable. Objective Data Objective Data Vital Signs: Vital Signs Temp Pulse Resp BP Pulse Ox O2 Del Method O2 Flow Rate 97.8 F 78 18 105/81 H 96 Room Air 2 05/26/25 17:31 05/26/25 17:31 05/26/25 17:31 05/26/25 17:31 05/26/25 17:31 05/26/25 17:31 05/23/25 08:08 Oxygen Flow Rate (L/min) 2 Oxygen Delivery Method Room Air Weight: 102.2 kg Body Mass Index (BMI) 31.4 Intake & Output: Intake and Output for Last 24 Hours 05/24/25 05/25/25 05/26/25 23:59 23:59 23:59 Intake Total 720 / 820 700 / 800 100 / 100 Output Total 750 / 1150 950 / 1200 650 / 650 Balance -30 / -330 -250 / -400 -550 / -550 Lab / Micro Data 05/23/25 05:55 05/23/25 05:55 Rhythm Strip Rhythm Strip: A-fib Rate: 133 Ectopy: None Physical Exam Narrative alert, no apparent distress and healthy appearing General Appearance: cooperative, well kempt and well developed Orientation / Consciousness: awake, oriented to person and oriented to place HEENT normocephalic, head/scalp atraumatic and moist oral mucous membranes Eyes PERRL, EOMs intact bilaterally and conjunctivae normal Neck supple, no JVD, thyroid normal and no carotid bruits General: trachea midline Resp normal respiratory effort, no retractions, no use of accessory muscles and clearto auscultation bilaterally Auscultation: Negative for rales, rhonchi or wheezes Cardio S1 normal heart sound, S2 normal heart sound, no murmurs, no rub and no gallops Cardio Narrative: Heart rate and rhythm is irregular GI normal to inspection, nondistended, normoactive bowel sounds, soft to palpation,non-tender and non-distended Extremity no clubbing, cyanosis or edema Skin no rashes or lesions noted General Skin Exam: no breakdown Neuro CN's II-XII intact bilaterally, no focal motor deficits and no sensory deficits noted Neuro Narrative: Patient exhibits confusion Sensorium / Orientation: awake, alert, oriented to person and oriented to place Speech: speech normal Psych Psych Narrative: Patient exhibits confusion Assessment & Plan Assessment/Plan (1) Ischemic stroke: (2) Altered mental status: (3) Atrial fibrillation with rapid ventricular response: PLAN: Plan 1. 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-continue Eliquis #3 essential hypertension-patient is on, metoprolol and furosemide #4 prostate cancer-complicates care, management, recovery, and prognosis #5 right MCA ischemic stroke-neurology suggested the patient remain on anticoagulation, he is also on a statin presently, PT and OT will continue to see the patient #6 elevated PSA-patient has a history of prostate cancer I do not feel the patient had congestive heart failure Total clinical time spent by myself addressing the patient's medical issues, reviewing all of his data, and collaborating with patient's care team: 35 minutes Charges/Coding Visit Charges Inpatient E&M: 59855 Subs Hosp L2 05/27/25 1147 <Electronically signed by Lisset Saldivar DO> Cosigner Signature (if applicable): CC: ~ Signed [facility] Work Phone: 1(482) 643-918407-13-2025 Discharge summary Author Lisset Saldivar [facility] Note Date/Time May 27, 2025 11:[address] [facility] Medical Records Department [address] [place] [address] Transfer to [facility] MR#: [id number] Acct: [id number] Name: LISSET FARMER Rep #:[id number] : 1950 75 From: Lisset Saldivar DO PCP: Dr. Lisset Barrera, DO Status:ADM IN Certification of patient admission REQUIRED AT TIME OF ADMISSION. I CERTIFY THAT POST-HOSPITAL ECF SERVICES ARE REQUIRED TO BE GIVEN ON AN IN-PATIENT BASIS BECAUSE OF THE ABOVE NAMED PATIENT'S NEED FOR SKILLED NURSING CARE ON A CONTINUING BASIS FOR THE CONDITION(S) FOR WHICH HE/SHE WAS RECEIVING IN-PATIENT HOSPITAL SERVICES PRIOR TO HIS/HER TRANSFER TO THE ECF. 05/27/25 1140<Electronically signed by Lisset Saldivar DO> Diet Diet Order/Speech Therapy: INPATIENT Hospital Diet / Speech Therapy Order(s) 05/22/25 22:45 Diet: Cardiac - Heart Healthy Food consistency:: Regular Liquid Consistency:: Regular/Thin Type of Dietary Supplement:: Ensure Plus High Protein Diet Comments: 240mL ensure plus HP w/ breakfast tray Routine Orders/Code Status Code Status: Full Code DC O2, CPAP, BIPAP needs Home O2 Discharge instructions: No Therapies Weight Bearing: Full weight bearing Physical Therapy: Eval and Treat Occupational Therapy: Eval and Treat Speech Therapy: Eval and Treat Problem/Diagnosis (1) Ischemic stroke: Status: Acute Code(s): I63.9 - Cerebral infarction, unspecified (2) Altered mental status: Status: Acute Code(s): R41.82 - Altered mental status, unspecified (3) Atrial fibrillation with rapid ventricular response: Status: Acute Code(s): I48.91 - Unspecified atrial fibrillation Plan 1. 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-continue Eliquis #3 essential hypertension-patient is on lisinopril, metoprolol, and amlodipine #4 prostate cancer-complicates care, management, recovery, and prognosis #5 right MCA ischemic stroke-neurology suggested the patient remain on anticoagulation, he is also on a statin presently, PT and OT will continue to see the patient Total clinical time spent by myself addressing the patient's medical issues, reviewing all of his data, and collaborating with patient's care team: 35 minutes Allergies/Procedures Done in Hospital Allergies sulfamethoxazole (From Bactrim) Adverse Reaction (Intermediate, Verified 05/22/25 17:07) Rash trimethoprim (From Bactrim) Adverse Reaction (Intermediate, Verified 05/22/25 17:07) Rash Procedures: 2-D Echocardiogram Type of Care/Length of Stay Estimated LOS: Convalescent Care Less Than 30 days Type of Care Needed: Acute Rehab Rehab Potential: Good Prognosis: Good Additional Orders/Day of Discharge H&P will serve as current which was dated: 05/22/25 Day of Discharge: 05/27/25 Dietary and Speech Recommendations Dietitian Recommendations/Changes: Will continue cardiac diet; FR as needed per physician. Will add 240mL ensure plus HP w/ breakfast tray as tolerated. Monitor blood glucose levels and restrict dietary carbohydrates as needed. Discharge Plan Admission Admit Date/Time: 05/22/25 19:47 Primary Reason for Your Visit: Acute stroke Attending Provider: Lisset Saldivar Primary Care Provider: Lisset Barrera Consulting Providers: Jonn Adams Discharge Orders/Prescriptions Prescriptions: New acetaminophen 325 mg Tablet 650 mg PO Q6H PRN PRN (Reason: Pain 1-10 Or Fever>100.7) Qty: 0 0RF atorvastatin 40 mg Tablet 40 mg PO QHS Qty: 0 0RF metoprolol tartrate 25 mg Tablet 25 mg PO BID Qty: 0 0RF furosemide [Lasix] 40 mg tablet 40 mg PO DAILY Qty: 1 0RF Continued Eliquis 5 mg tablet 5 mg PO BID 30 Days Qty: 60 0RF Discontinued amlodipine 10 mg tablet 10 mg PO QDAY lisinopril 40 MG tablet 40 mg PO DAILY calcium carbonate-vitamin D3 1 EACH tablet 1 ea PO BID No Action metoprolol tartrate 50 mg tablet 50 mg PO DAILY Referrals / Follow Up: Lisset Barrera DO [Primary Care Provider] - Disposition Disposition (needs filled in before D/C Order can be placed): Inpatient Rehab Unit/Facility 05/27/25 1140 <Electronically signed by Lisset Saldivar DO> Cosigner Signature (if applicable): CC: Dr. Jonn Adams DO; Dr. Lisset Barrera DO ~ [facility] Work Phone: 1(676) 433-230007-13-[address] [facility] Medical Records Department [address] [place] [address] Progress Note - Hospitalist 05/26/25 7801 MR#: [id number] Acct: [id number] Name: LISSET FARMER Rep #:[id number] : 1950 75 From: Lisset Saldivar DO PCP: Dr. Lisset Barrera, DO Status:ADM IN Location: [place] [address] Reason for Visit Reason for Visit: Diagnoses Unspecified atrial fibrillation (05/22/25) Cerebral infarction, unspecified (05/22/25) Altered mental status, unspecified (05/22/25) Subjective Subjective Patient was seen and examined today, his pulse rate appears to be controlled on no beta-eugenie. I have decided to add a small amount of metoprolol starting tonight and observe his response to this. Patient will most likely be able to go to the rehab unit tomorrow if he remains medically stable. Objective Data Objective Data Vital Signs: Vital Signs Temp Pulse Resp BP Pulse Ox O2 Del Method O2 Flow Rate 97.8 F 78 18 105/81 H 96 Room Air 2 05/26/25 17:31 05/26/25 17:31 05/26/25 17:31 05/26/25 17:31 05/26/25 17:31 05/26/25 17:31 05/23/25 08:08 Oxygen Flow Rate (L/min) 2 Oxygen Delivery Method Room Air Weight: 102.2 kg Body Mass Index (BMI) 31.4 Intake & Output: Intake and Output for Last 24 Hours 05/24/25 05/25/25 05/26/25 23:59 23:59 23:59 Intake Total 720 / 820 700 / 800 100 / 100 Output Total 750 / 1150 950 / 1200 650 / 650 Balance -30 / -330 -250 / -400 -550 / -550 Lab / Micro Data 05/23/25 05:55 05/23/25 05:55 Rhythm Strip Rhythm Strip: A-fib Rate: 133 Ectopy: None Physical Exam Narrative alert, no apparent distress and healthy appearing General Appearance: cooperative, well kempt and well developed Orientation / Consciousness: awake, oriented to person and oriented to place HEENT normocephalic, head/scalp atraumatic and moist oral mucous membranes Eyes PERRL, EOMs intact bilaterally and conjunctivae normal Neck supple, no JVD, thyroid normal and no carotid bruits General: trachea midline Resp normal respiratory effort, no retractions, no use of accessory muscles and clearto auscultation bilaterally Auscultation: Negative for rales, rhonchi or wheezes Cardio S1 normal heart sound, S2 normal heart sound, no murmurs, no rub and no gallops Cardio Narrative: Heart rate and rhythm is irregular GI normal to inspection, nondistended, normoactive bowel sounds, soft to palpation,non-tender and non-distended Extremity no clubbing, cyanosis or edema Skin no rashes or lesions noted General Skin Exam: no breakdown Neuro CN's II-XII intact bilaterally, no focal motor deficits and no sensory deficits noted Neuro Narrative: Patient exhibits confusion Sensorium / Orientation: awake, alert, oriented to person and oriented to place Speech: speech normal Psych Psych Narrative: Patient exhibits confusion Assessment & Plan Assessment/Plan (1) Ischemic stroke: (2) Altered mental status: (3) Atrial fibrillation with rapid ventricular response: PLAN: Plan 1. 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-continue Eliquis #3 essential hypertension-patient is on, metoprolol and furosemide #4 prostate cancer-complicates care, management, recovery, and prognosis #5 right MCA ischemic stroke-neurology suggested the patient remain on anticoagulation, he is also on a statin presently, PT and OT will continue to see the patient #6 elevated PSA-patient has a history of prostate cancer I do not feel the patient had congestive heart failure Total clinical time spent by myself addressing the patient's medical issues, reviewing all of his data, and collaborating with patient's care team: 35 minutes Charges/Coding Visit Charges Inpatient E&M: 58980 Subs Hosp L2 05/27/25 1147 Cosigner Signature (if applicable): CC: ~ Signed [facility]07-13-2025 Discharge summary [facility] Medical Records Department [address] [place] [address] Transfer to [facility] MR#: [id number] Acct: [id number] Name: LISSET FARMER Rep #:[id number] : 1950 75 From: Lisset Saldivar DO PCP: Dr. Lisset Barrera, DO Status:ADM IN Certification of patient admission REQUIRED AT TIME OF ADMISSION. I CERTIFY THAT POST-HOSPITAL ECF SERVICES ARE REQUIRED TO BE GIVEN ON AN IN-PATIENT BASIS BECAUSE OF THE ABOVE NAMED PATIENT'S NEED FOR SKILLED NURSING CARE ON A CONTINUING BASIS FOR THE CONDITION(S) FOR WHICH HE/SHE WAS RECEIVING IN-PATIENT HOSPITAL SERVICES PRIOR TO HIS/HER TRANSFER TO THE ECF. 05/27/25 1140 Diet Diet Order/Speech Therapy: INPATIENT Hospital Diet / Speech Therapy Order(s) 05/22/25 22:45 Diet: Cardiac - Heart Healthy Food consistency:: Regular Liquid Consistency:: Regular/Thin Type of Dietary Supplement:: Ensure Plus High Protein Diet Comments: 240mL ensure plus HP w/ breakfast tray Routine Orders/Code Status Code Status: Full Code DC O2, CPAP, BIPAP needs Home O2 Discharge instructions: No Therapies Weight Bearing: Full weight bearing Physical Therapy: Eval and Treat Occupational Therapy: Eval and Treat Speech Therapy: Eval and Treat Problem/Diagnosis (1) Ischemic stroke: Status: Acute Code(s): I63.9 - Cerebral infarction, unspecified (2) Altered mental status: Status: Acute Code(s): R41.82 - Altered mental status, unspecified (3) Atrial fibrillation with rapid ventricular response: Status: Acute Code(s): I48.91 - Unspecified atrial fibrillation Plan 1. 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-continue Eliquis #3 essential hypertension-patient is on lisinopril, metoprolol, and amlodipine #4 prostate cancer-complicates care, management, recovery, and prognosis #5 right MCA ischemic stroke-neurology suggested the patient remain on anticoagulation, he is also on a statin presently, PT and OT will continue to see the patient Total clinical time spent by myself addressing the patient's medical issues, reviewing all of his data, and collaborating with patient's care team: 35 minutes Allergies/Procedures Done in Hospital Allergies sulfamethoxazole (From Bactrim) Adverse Reaction (Intermediate, Verified 05/22/25 17:07) Rash trimethoprim (From Bactrim) Adverse Reaction (Intermediate, Verified 05/22/25 17:07) Rash Procedures: 2-D Echocardiogram Type of Care/Length of Stay Estimated LOS: Convalescent Care Less Than 30 days Type of Care Needed: Acute Rehab Rehab Potential: Good Prognosis: Good Additional Orders/Day of Discharge H&P will serve as current which was dated: 05/22/25 Day of Discharge: 05/27/25 Dietary and Speech Recommendations Dietitian Recommendations/Changes: Will continue cardiac diet; FR as needed per physician. Will add 240mL ensure plus HP w/ breakfast tray as tolerated. Monitor blood glucose levels and restrict dietary carbohydrates as needed. Discharge Plan Admission Admit Date/Time: 05/22/25 19:47 Primary Reason for Your Visit: Acute stroke Attending Provider: Lisset Saldivar Primary Care Provider: Lisset Barrera Consulting Providers: Jonn Adams Discharge Orders/Prescriptions Prescriptions: New acetaminophen 325 mg Tablet 650 mg PO Q6H PRN PRN (Reason: Pain 1-10 Or Fever>100.7) Qty: 0 0RF atorvastatin 40 mg Tablet 40 mg PO QHS Qty: 0 0RF metoprolol tartrate 25 mg Tablet 25 mg PO BID Qty: 0 0RF furosemide [Lasix] 40 mg tablet 40 mg PO DAILY Qty: 1 0RF Continued Eliquis 5 mg tablet 5 mg PO BID 30 Days Qty: 60 0RF Discontinued amlodipine 10 mg tablet 10 mg PO QDAY lisinopril 40 MG tablet 40 mg PO DAILY calcium carbonate-vitamin D3 1 EACH tablet 1 ea PO BID No Action metoprolol tartrate 50 mg tablet 50 mg PO DAILY Referrals / Follow Up: Lisset Barrera DO [Primary Care Provider] - Disposition Disposition (needs filled in before D/C Order can be placed): Inpatient Rehab Unit/Facility 05/27/25 1140 Cosigner Signature (if applicable): CC: Dr. Jonn Adams DO; Dr. Lisset Barrera DO ~ [facility]07-12-2025 Progress note Author Lisset Saldivar [facility] Note Date/Time May 26, 2025 8:[address] [facility] Medical Records Department [address] [place] [address] Progress Note - Hospitalist 05/25/25 1617 MR#: [id number] Acct: [id number] Name: LISSET FARMER Rep #:[id number] 2 : 1950 75 From: Lisset Saldivar DO PCP: Dr. Lisset Holly, DO Status:ADM IN Location: [facility] [id number] Reason for Visit Reason for Visit: Diagnoses Unspecified atrial fibrillation (05/22/25) Altered mental status, unspecified (05/22/25) Subjective Subjective Patient was seen and examined today, he is alert and answers most questions appropriately. I have talked to the patient's daughter yesterday and told her Ifelt it was appropriate for the patient to go to the rehab unit for rehab services due to his stroke and she agreed. I talked with the patient today about this and he is okay with it. Patient has been bradycardic today and I elected to stop his metoprolol and I will probably restart it tomorrow at a lower dose. Patient is asymptomatic with the bradycardia. Objective Data Objective Data Vital Signs: Vital Signs Temp Pulse Resp BP Pulse Ox O2 Del Method O2 Flow Rate 97.3 F L 53 L 18 124/91 H 94 Room Air 2 05/25/25 15:00 05/25/25 15:00 05/25/25 15:00 05/25/25 15:00 05/25/25 15:00 05/25/25 15:00 05/23/25 08:08 Oxygen Flow Rate (L/min) 2 Oxygen Delivery Method Room Air Weight: 101.7 kg Body Mass Index (BMI) 31.2 Intake & Output: Intake and Output for Last 24 Hours 05/23/25 05/24/25 05/25/25 23:59 23:59 23:59 Intake Total 825.17 / 825.17 720 / 820 500 / 500 Output Total 2550 / 2550 750 / 1150 950 / 950 Balance -1724.83 / -1724.83 -30 / -330 -450 / -450 Lab / Micro Data 05/23/25 05:55 05/23/25 05:55 Labs: Laboratory Results - last 24 hr 05/23/25 05:55: PSA Serial Monitor Not Reportable Rhythm Strip Rhythm Strip: A-fib Rate: 133 Ectopy: None Physical Exam Narrative alert, no apparent distress and healthy appearing General Appearance: cooperative, well kempt and well developed Orientation / Consciousness: awake, oriented to person and oriented to place HEENT normocephalic, head/scalp atraumatic and moist oral mucous membranes Eyes PERRL, EOMs intact bilaterally and conjunctivae normal Neck supple, no JVD, thyroid normal and no carotid bruits General: trachea midline Resp normal respiratory effort, no retractions, no use of accessory muscles and clearto auscultation bilaterally Auscultation: Negative for rales, rhonchi or wheezes Cardio S1 normal heart sound, S2 normal heart sound, no murmurs, no rub and no gallops Cardio Narrative: Heart rate and rhythm is irregular GI normal to inspection, nondistended, normoactive bowel sounds, soft to palpation,non-tender and non-distended Extremity no clubbing, cyanosis or edema Skin no rashes or lesions noted General Skin Exam: no breakdown Neuro CN's II-XII intact bilaterally, no focal motor deficits and no sensory deficits noted Neuro Narrative: Patient exhibits confusion Sensorium / Orientation: awake, alert, oriented to person and oriented to place Speech: speech normal Psych Psych Narrative: Patient exhibits confusion Assessment & Plan Assessment/Plan (1) Ischemic stroke: (2) Altered mental status: (3) Atrial fibrillation with rapid ventricular response: PLAN: Plan 1. Atrial fibrillation with rapid ventricular response-patient is bradycardic today and I have decided to hold his metoprolol, it will be restarted tomorrow at a lower dose #2 encephalopathy-secondary to ischemic strokes in the right MCA area-it was recommended the patient remain on full anticoagulation, he will receive a statin, I talked briefly with the patient's daughter and suggested that the patient go to the rehab department here at the hospital for inpatient rehab at the time of discharge from the hospital. I will talk with the patient tomorrow concerning this #3 essential hypertension-patient is on lisinopril, metoprolol, and amlodipine #4 prostate cancer-complicates care, management, recovery, and prognosis #5 right MCA ischemic stroke-neurology suggested the patient remain on anticoagulation, he is also on a statin presently, PT and OT will continue to see the patient Total clinical time spent by myself addressing the patient's medical issues, reviewing all of his data, and collaborating with patient's care team: 35 minutes Charges/Coding Visit Charges Inpatient E&M: 30726 Subs Hosp L2 05/26/25 0817 <Electronically signed by Lisset Saldivar DO> Cosigner Signature (if applicable): CC: ~ Signed [facility] Work Phone: 1(993) 483-757007-12-2025 Progress note [facility] Medical Records Department [address] [place] [address] Progress Note - Hospitalist 05/25/25 1617 MR#: [id number] Acct: [id number] Name: LISSET FARMER Rep #:[id number] 2 : 1950 75 From: Lisset Saldivar DO PCP: Dr. Lisset Barrera, DO Status:ADM IN Location: [place] [address] Reason for Visit Reason for Visit: Diagnoses Unspecified atrial fibrillation (05/22/25) Altered mental status, unspecified (05/22/25) Subjective Subjective Patient was seen and examined today, he is alert and answers most questions appropriately. I have talked to the patient's daughter yesterday and told her Ifelt it was appropriate for the patient to go to the rehab unit for rehab services due to his stroke and she agreed. I talked with the patient today about this and he is okay with it. Patient has been bradycardic today and I elected to stop hismetoprolol and I will probably restart it tomorrow at a lower dose. Patient is asymptomatic with the bradycardia. Objective Data Objective Data Vital Signs: Vital Signs Temp Pulse Resp BP Pulse Ox O2 Del Method O2 Flow Rate 97.3 F L 53 L 18 124/91 H 94 Room Air 2 05/25/25 15:00 05/25/25 15:00 05/25/25 15:00 05/25/25 15:00 05/25/25 15:00 05/25/25 15:00 05/23/25 08:08 Oxygen Flow Rate (L/min) 2 Oxygen Delivery Method Room Air Weight: 101.7 kg Body Mass Index (BMI) 31.2 Intake & Output: Intake and Output for Last 24 Hours 05/23/25 05/24/25 05/25/25 23:59 23:59 23:59 Intake Total 825.17 / 825.17 720 / 820 500 / 500 Output Total 2550 / 2550 750 / 1150 950 / 950 Balance -1724.83 / -1724.83 -30 / -330 -450 / -450 Lab / Micro Data 05/23/25 05:55 05/23/25 05:55 Labs: Laboratory Results - last 24 hr 05/23/25 05:55: PSA Serial Monitor Not Reportable Rhythm Strip Rhythm Strip: A-fib Rate: 133 Ectopy: None Physical Exam Narrative alert, no apparent distress and healthy appearing General Appearance: cooperative, well kempt and well developed Orientation / Consciousness: awake, oriented to person and oriented to place HEENT normocephalic, head/scalp atraumatic and moist oral mucous membranes Eyes PERRL, EOMs intact bilaterally and conjunctivae normal Neck supple, no JVD, thyroid normal and no carotid bruits General: trachea midline Resp normal respiratory effort, no retractions, no use of accessory muscles and clearto auscultation bilaterally Auscultation: Negative for rales, rhonchi or wheezes Cardio S1 normal heart sound, S2 normal heart sound, no murmurs, no rub and no gallops Cardio Narrative: Heart rate and rhythm is irregular GI normal to inspection, nondistended, normoactive bowel sounds, soft to palpation,non-tender and non-distended Extremity no clubbing, cyanosis or edema Skin no rashes or lesions noted General Skin Exam: no breakdown Neuro CN's II-XII intact bilaterally, no focal motor deficits and no sensory deficits noted Neuro Narrative: Patient exhibits confusion Sensorium / Orientation: awake, alert, oriented to person and oriented to place Speech: speech normal Psych Psych Narrative: Patient exhibits confusion Assessment & Plan Assessment/Plan (1) Ischemic stroke: (2) Altered mental status: (3) Atrial fibrillation with rapid ventricular response: PLAN: Plan 1. Atrial fibrillation with rapid ventricular response-patient is bradycardic today and I have decided to hold his metoprolol, it will be restarted tomorrow at a lower dose #2 encephalopathy-secondary to ischemic strokes in the right MCA area-it was recommended the patient remain on full anticoagulation, he will receive a statin, I talked briefly with the patient's daughter and suggested that the patient go to the rehab department here at the hospital for inpatient rehab at the time of discharge from the hospital. I will talk with the patient tomorrow concerning this #3 essential hypertension-patient is on lisinopril, metoprolol, and amlodipine #4 prostate cancer-complicates care, management, recovery, and prognosis #5 right MCA ischemic stroke-neurology suggested the patient remain on anticoagulation, he is also on a statin presently, PT and OT will continue to see the patient Total clinical time spent by myself addressing the patient's medical issues, reviewing all of his data, and collaborating with patient's care team: 35 minutes Charges/Coding Visit Charges Inpatient E&M: 02691 Subs Hosp L2 05/26/25 0817 Cosigner Signature (if applicable): CC: ~ Signed [facility]07-10-2025 Progress note Author Lisset Saldivar [facility] Note Date/Time May 24, 2025 4:[address] [facility] Medical Records Department [address] [place] [address] Progress Note - Hospitalist 05/24/25 1650 MR#: [id number] Acct: [id number] Name: LISSET FARMER Rep #:[id number] 7 : 1950 75 From: Lisset Saldivar DO PCP: Dr. Lisset Barrera, DO Status:ADM IN Location: [place] [address] Reason for Visit Reason for Visit: Diagnoses Unspecified atrial fibrillation (05/22/25) Altered mental status, unspecified (05/22/25) Subjective Subjective Patient was seen and examined today, his rate appears to be controlled and I have decided not to give him any more digoxin. Patient was seen by speech therapy today and he scored 66 out of the 100 on his cognitive exam, he was seenby teleneurology, they felt that the patient has had small strokes in the right MCA area due to A- fib. It was recommended that the patient stay on anticoagulation and continue to receive a statin and PT and OT evaluation. Objective Data Objective Data Vital Signs: Vital Signs Temp Pulse Resp BP Pulse Ox O2 Del Method O2 Flow Rate 98.2 F 91 18 119/78 95 Room Air 2 05/24/25 15:05/24/25 15:00 05/24/25 15:05/24/25 15:05/24/25 15:05/24/25 15:00 05/23/25 08:08 Oxygen Flow Rate (L/min) 2 Oxygen Delivery Method Room Air Weight: 102.5 kg Body Mass Index (BMI) 31.5 Intake & Output: Intake and Output for Last 24 Hours 05/22/25 05/23/25 05/24/25 23:59 23:59 23:59 Intake Total 30.74 / 95.74 825.17 / 825.17 360 / 360 Output Total 2550 / 2550 650 / 650 Balance 30.74 / -304.26 -1724.83 / -1724.83 -290 / -290 Lab / Micro Data 05/23/25 05:55 05/23/25 05:55 Labs: Laboratory Results - last 24 hr 05/23/25 05:55: Total PSA 49.7 H 05/24/25 05:55: Triglycerides 70, Cholesterol 156, LDL Cholesterol, Calc 99, VLDL Cholesterol 14, HDL Cholesterol 43, Cholesterol/HDL Ratio 3.61 Radiography Diagnostic Testing: Radiology Impression Echocardiogram 05/22/25 19:53 Interpretation Summary Normal LV size. Left ventricular systolic function is normal. The left ventricular ejection fraction is 55 %. Mild concentric left ventricular hypertrophy. Ordering Physician: Jonn Adams Referring Physician: Lisset Barrera Performed By: Sandi Garcia RDCS Head/Neck CTA 05/24/25 13:31 IMPRESSION: Minimal plaque at the origin of the right and left internal carotid arteries. No significant stenosis seen. Reading Location: [place] [address] Rhythm Strip Rhythm Strip: A-fib Rate: 133 Ectopy: None Physical Exam Narrative alert, no apparent distress and healthy appearing General Appearance: cooperative, well kempt and well developed Orientation / Consciousness: awake, oriented to person and oriented to place HEENT normocephalic, head/scalp atraumatic and moist oral mucous membranes Eyes PERRL, EOMs intact bilaterally and conjunctivae normal Neck supple, no JVD, thyroid normal and no carotid bruits General: trachea midline Resp normal respiratory effort, no retractions, no use of accessory muscles and clearto auscultation bilaterally Auscultation: Negative for rales, rhonchi or wheezes Cardio S1 normal heart sound, S2 normal heart sound, no murmurs, no rub and no gallops Cardio Narrative: Heart rate and rhythm is irregular GI normal to inspection, nondistended, normoactive bowel sounds, soft to palpation,non-tender and non-distended Extremity no clubbing, cyanosis or edema Skin no rashes or lesions noted General Skin Exam: no breakdown Neuro CN's II-XII intact bilaterally, no focal motor deficits and no sensory deficits noted Neuro Narrative: Patient exhibits confusion Sensorium / Orientation: awake, alert, oriented to person and oriented to place Speech: speech normal Psych Psych Narrative: Patient exhibits confusion Assessment & Plan Assessment/Plan (1) Altered mental status: (2) Atrial fibrillation with rapid ventricular response: PLAN: Plan 1. Atrial fibrillation with rapid ventricular response-patient's heart rate is under adequate control with metoprolol alone, he will be monitored #2 encephalopathy-secondary to ischemic strokes in the right MCA area-it was recommended the patient remain on full anticoagulation, he will receive a statin, I talked briefly with the patient's daughter and suggested that the patient go to the rehab department here at the hospital for inpatient rehab at the time of discharge from the hospital. I will talk with the patient tomorrow concerning this #3 essential hypertension-patient is on lisinopril, metoprolol, and amlodipine #4 prostate cancer-complicates care, management, recovery, and prognosis Total clinical time spent by myself addressing the patient's medical issues, reviewing all of his data, and collaborating with patient's care team: 35 minutes Charges/Coding Visit Charges Inpatient E&M: 08040 Subs Hosp L2 05/24/251652 <Electronically signed by Lisset Saldivar DO> Cosigner Signature (if applicable): CC: ~ Signed [facility] Work Phone: 1(193) 508-365407-10-[address] [facility] Medical Records Department [address] [place] [address] Progress Note - Hospitalist 05/24/25 165 MR#: [id number] Acct: [id number] Name: LISSET FARMER Rep #:[id number] 7 : 1950 75 From: Lisset Saldivar DO PCP: Dr. Lisset Barrera, DO Status:ADM IN Location: [place] [address]- Reason for Visit Reason for Visit: Diagnoses Unspecified atrial fibrillation (05/22/25) Altered mental status, unspecified (05/22/25) Subjective Subjective Patient was seen and examined today, his rate appears to be controlled and I have decided not to give him any more digoxin. Patient was seen by speech therapy today and he scored 66 out of the 100 onhis cognitive exam, he was seenby teleneurology, they felt that the patient has had small strokes in the right MCA area due to A-fib. It was recommended that the patient stay on anticoagulation and continue to receive a statin and PT and OT evaluation. Objective Data Objective Data Vital Signs: Vital Signs Temp Pulse Resp BP Pulse Ox O2 Del Method O2 Flow Rate 98.2 F 91 18 119/78 95 Room Air 2 05/24/25 15:00 05/24/25 15:00 05/24/25 15:00 05/24/25 15:00 05/24/25 15:00 05/24/25 15:00 05/23/25 08:08 Oxygen Flow Rate (L/min) 2 Oxygen Delivery Method Room Air Weight: 102.5 kg Body Mass Index (BMI) 31.5 Intake & Output: Intake and Output for Last 24 Hours 05/22/25 05/23/25 05/24/25 23:59 23:59 23:59 Intake Total 30.74 / 95.74 825.17 / 825.17 360 / 360 Output Total 2550 / 2550 650 / 650 Balance 30.74 / -304.26 -1724.83 / -1724.83 -290 / -290 Lab / Micro Data 05/23/25 05:55 05/23/25 05:55 Labs: Laboratory Results - last 24 hr 05/23/25 05:55: Total PSA 49.7 H 05/24/25 05:55: Triglycerides 70, Cholesterol 156, LDL Cholesterol, Calc 99, VLDL Cholesterol 14, HDL Cholesterol 43, Cholesterol/HDL Ratio 3.61 Radiography Diagnostic Testing: Radiology Impression Echocardiogram 05/22/25 19:53 Interpretation Summary Normal LV size. Left ventricular systolic function is normal. The left ventricular ejection fraction is 55 %. Mild concentric left ventricular hypertrophy. Ordering Physician: Jonn Adams Referring Physician: Lisset Barrera Performed By: Sandi Garcia, RDADRIAN Head/Neck CTA 05/24/25 13:31 IMPRESSION: Minimal plaque at the origin of the right and left internal carotid arteries. No significant stenosis seen. Reading Location: [place] [address] Rhythm Strip Rhythm Strip: A-fib Rate: 133 Ectopy: None Physical Exam Narrative alert, no apparent distress and healthy appearing General Appearance: cooperative, well kempt and well developed Orientation / Consciousness: awake, oriented to person and oriented to place HEENT normocephalic, head/scalp atraumatic and moist oral mucous membranes Eyes PERRL, EOMs intact bilaterally and conjunctivae normal Neck supple, no JVD, thyroid normal and no carotid bruits General: trachea midline Resp normal respiratory effort, no retractions, no use of accessory muscles and clearto auscultation bilaterally Auscultation: Negative for rales, rhonchi or wheezes Cardio S1 normal heart sound, S2 normal heart sound, no murmurs, no rub and no gallops Cardio Narrative: Heart rate and rhythm is irregular GI normal to inspection, nondistended, normoactive bowel sounds, soft to palpation,non-tender and non-distended Extremity no clubbing, cyanosis or edema Skin no rashes or lesions noted General Skin Exam: no breakdown Neuro CN's II-XII intact bilaterally, no focal motor deficits and no sensory deficits noted Neuro Narrative: Patient exhibits confusion Sensorium / Orientation: awake, alert, oriented to person and oriented to place Speech: speech normal Psych Psych Narrative: Patient exhibits confusion Assessment & Plan Assessment/Plan (1) Altered mental status: (2) Atrial fibrillation with rapid ventricular response: PLAN: Plan 1. Atrial fibrillation with rapid ventricular response-patient's heart rate is under adequate control with metoprolol alone, he will be monitored #2 encephalopathy-secondary to ischemic strokes in the right MCA area-it was recommended the patient remain on full anticoagulation, he will receive a statin, I talked briefly with the patient's daughter and suggested that the patient go to the rehab department here at the hospital for inpatient rehab at the time of discharge from the hospital. I will talk with the patient tomorrow concerning this #3 essential hypertension-patient is on lisinopril, metoprolol, and amlodipine #4 prostate cancer-complicates care, management, recovery, and prognosis Total clinical time spent by myself addressing the patient's medical issues, reviewing all of his data, and collaborating with patient's care team: 35 minutes Charges/Coding Visit Charges Inpatient E&M: 46444 Subs Hosp L2 05/24/25 7298 Cosigner Signature (if applicable): CC: ~ Signed [facility]07-10-2025 Consult note Author Khadra Cabezas [facility] Note Date/Time May 24, 2025 1:[address] [facility] Medical Records Department [address] [place] [address] Consultation - Neurology 05/24/25 1253 MR#: [id number] Acct: [id number] Name: LISSET FARMER Rep #:[id number] 1 : 1950 75 From: Khadra Cabezas MD PCP: Dr. 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 CT brain negative. 05/23/25 MRI [facility] brain shows scattered right MCA infarcts. TTE EF 55%. He is on eliquis. Neurological examination shows nonfocal exam, NIHSS-0. ASSESSMENT/PLAN: Acute right MCA ischemic stroke, post stroke day #2. Stroke mechanism is likely cardioembolic due to Afib. 1) Recommend stroke work-up including CTA head/neck 2) Recommend completing stroke order sets including LDL, HgA1c, and PT/OT consults, etc. 2) If LDL < 100, recommend adding Lipitor. 3) Agree with eliquis for stroke prevention 4) Will review CTA when completed. 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 In ER, CT brain negative. He was admitted. 05/23/25 MRI [facility] brain shows scattered right MCA infarcts. TTE EF 55%. He is on eliquis. Today the patient reports he feels at baseline, denies confusion currently. 130/97. PFSH Medical History Prostate cancer Elevated PSA [...] Time sulfamethoxazole (From AdvReac Intermediate Rash Verified 05/22/25 17:07 Bactrim) trimethoprim (From Bactrim) AdvReac Intermediate Rash Verified 05/22/25 17:07 Family History Mother Hypertension CVA (cerebral vascular accident) Breast cancer Sister CVA (cerebral vascular accident) Surgical History History of prostate biopsy Basal cell carcinoma of nose Social History household members: none Smoking Status: Never smoker second hand exposure: No alcohol intake: never substance use type: does not use Vital Signs Vital Signs Vital Signs: 05/23/25 13:00 05/23/25 14:00 05/23/25 15:04 Temperature 97.5 F L Temperature Source Temporal Pulse Rate 82 76 77 Pulse Strength Respiratory Rate 20 H 16 21 H Respiratory Effort Respiratory Depth Respiratory Pattern Blood Pressure 113/92 H 129/103 H 124/74 H Blood Pressure Mean 99 111 90 Blood Pressure Source Monitor Monitor Monitor Blood Pressure Position Semi-Fowlers Semi-Fowlers Semi-Fowlers Blood Pressure Location Left Arm Left Arm Left Arm Pulse Ox 92 93 92 Oxygen Delivery Method Room Air Room Air Room Air 05/23/25 15:05 05/23/25 16:00 05/23/25 17:00 Temperature Temperature Source Pulse Rate 65 82 Pulse Strength Respiratory Rate 17 22 H Respiratory Effort Normal Non-Labored Respiratory Depth Normal Respiratory Pattern Normal Blood Pressure 115/92 H 129/82 H Blood Pressure Mean 99 97 Blood Pressure Source Monitor Monitor Blood Pressure Position Semi-Fowlers Semi-Fowlers Blood Pressure Location Left Arm Left Arm Pulse Ox 95 92 Oxygen Delivery Method Room Air Room Air Room Air 05/23/25 17:00 05/23/25 17:02 05/23/25 20:43 Temperature 97.5 F L 96.4 F L Temperature Source Temporal Temporal Pulse Rate 82 94 89 Pulse Strength Respiratory Rate 22 H 18 Respiratory Effort Respiratory Depth Respiratory Pattern Blood Pressure 129/82 H 133/108 H Blood Pressure Mean 97 116 Blood Pressure Source Monitor Monitor Blood Pressure Position Semi-Fowlers Supine Blood Pressure Location Left Arm Left Arm Pulse Ox 92 91 Oxygen Delivery Method Room Air Room Air 05/23/25 20:50 05/23/25 22:00 05/24/25 03:00 Temperature 69.3 F L Temperature Source Temporal Pulse Rate 89 72 Pulse Strength Respiratory Rate 18 Respiratory Effort Normal Non-Labored Respiratory Depth Normal Respiratory Pattern Normal Blood Pressure 127/88 H Blood Pressure Mean 101 Blood Pressure Source Monitor Blood Pressure Position Supine Blood Pressure Location Right Arm Pulse Ox 94 Oxygen Delivery Method Room Air CPAP 05/24/25 09:03 05/24/25 09:09 05/24/25 09:10 Temperature 97.3 F L Temperature Source Temporal Pulse Rate 78 78 Pulse Strength Normal (2+) Respiratory Rate 18 Respiratory Effort Respiratory Depth Respiratory Pattern Blood Pressure 130/97 H Blood Pressure Mean 108 Blood Pressure Source Monitor Blood Pressure Position Sitting Blood Pressure Location Left Arm Pulse Ox 94 Oxygen Delivery Method Room Air 05/24/25 09:16 Temperature Temperature Source Pulse Rate Pulse Strength Respiratory Rate Respiratory Effort Normal Non-Labored Respiratory Depth Normal Respiratory Pattern Normal Blood Pressure Blood Pressure Mean Blood Pressure Source Blood Pressure Position Blood Pressure Location Pulse Ox Oxygen Delivery Method Room Air Weight Weight: 102.5 kg Body Mass Index (BMI) 31.5 EEG Results Procedure Details EEG Procedure Details: 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 Mental Status: The patient?s mental status was normal including orientation. Language was intact. Cranial nerves: Visual tavera full, and extra-ocular motion was intact. Face motion symmetric. There was no dysarthria. Motor: Normal strength and tone in all four extremities. No pronator drift. Sensation: Intact light touch bilaterally, no extinction. Coordination: Bilateral finger to nose was normal. There was no dysmetria. Gait: deferred Lab / Micro Data 05/23/25 05:55 05/23/25 05:55 Rhythm Strip Rhythm Strip: A-fib Rate: 133 Ectopy: None Imaging Radiology Impression Echocardiogram 05/22/25 19:53 Interpretation Summary Normal LV size. Left ventricular systolic function is normal. The left ventricular ejection fraction is 55 %. Mild concentric left ventricular hypertrophy. Ordering Physician: Jonn Adams Referring Physician: Lisset Barrera Performed By: Sandi Garcia RDCS Active Medications Active Medications Active Medications: Current Medications Generic Name Dose Route Start Last Admin Trade Name Freq PRN Reason Stop Dose Admin Acetaminophen 650 mg 05/22/25 22:45 Acetaminophen 325 Mg Tablet PO Q6H PRN PRN Pain 1-10 Or Fever>100.7 Apixaban 5 mg 05/22/25 22:45 05/24/25 09:09 Apixaban 5 Mg Tablet PO 5 mg BID BARB Administration Furosemide 20 mg 05/22/25 22:45 05/24/25 09:09 Furosemide 20 Mg/2 Ml Vial IV 20 mg BIDLX BARB Administration Protocol Sodium Chloride 250 mls @ 15 mls/hr 05/22/25 22:20 IV .[id number] PRN Saline Flush Sodium Chloride 250 mls @ 15 mls/hr 05/22/25 22:20 IV .[id number] PRN Additional IVPB Infusion Melatonin 3 mg 05/22/25 22:45 Melatonin 3 Mg Tablet PO QHS PRN PRN INSOMNIA Metoprolol Tartrate 100 mg 05/23/25 22:00 05/24/25 09:09 Metoprolol Tartrate 100 Mg Tablet PO 100 mg BID BARB Administration Protocol Ondansetron HCl 4 mg 05/22/25 22:45 Ondansetron 4 Mg/2 Ml Vial IV Q8H PRN PRN NAUSEA/VOMITING Sodium Chloride 10 - 40 ml 05/22/25 22:20 05/24/25 09:09 0.9% Saline Lock 10 Ml Syringe IV 10 ml UD PRN Administration SALINE FLUSH 05/24/25 1325 <Electronically signed by Khadra Cabezas MD> Cosigner Signature (if applicable): CC: Dr. Lisset Barrera DO~ Signed [facility] Work Phone: [phone] 488-869707-10-2025 Radiology Diagnostic study note [facility] Imaging Services [address] [place], [place] [id number] CTA Head AND Neck W/ Contrast MR#: [id number] Acct: [id number] Name: MAGDYCATHERINELISSET S Rep #: [id number] 1 : 1950 M 75 From: Pedro Arauz MD PCP: Dr. Lisset Barrera DO Status: ADM IN Study:CTA Head AND Neck W/ Contrast Date of Zia xam: 05/24/25 Exam# [id number] Ordering Dr: Lisset Gunderson DO PROCEDURE: CTA HEAD AND NECK W/ CONTRAST 05/24/2025 REASON FOR EXAM: STROKE TECHNIQUE: CTA HEAD AND NECK W/ CONTRAST Multiplanar Sagittal and Coronal images were obtained. 3D post processing was performed CONTRAST: Isovue-300 VOLUME: 100 mL One or more dose reduction techniques were used (e.g., Automated exposure control, adjustment of the mA and/or kV according to patient size, use of iterative reconstruction technique). RADIATION DOSE SUMMARY: CTDlvol: 34 mGy DLP: 1644.45 mGycm COMPARISON: Prior unenhanced CT scan of the head dated May 23, 2025. FINDINGS: Aortic Arch: Normal size and branching pattern. No significant atherosclerotic plaque. Brachiocephalic and Subclavians: Mild atherosclerotic plaque without significantstenosis. RIGHT Carotid: Right CCA: Unremarkable. Right ICA: Mild calcified and soft plaque. Maximum stenosis (NASCET): <50 % Right ECA: Unremarkable. LEFT Carotid: Left CCA: Unremarkable. Left ICA: Mild calcified and soft plaque. Maximum stenosis (NASCET): <50 % Left ECA: Unremarkable. Vertebrals: Dominant right vertebral artery. RIGHT Vertebral: Unremarkable. LEFT Vertebral: Unremarkable. Anatomy: [place] anatomy is normal. Aneurysm or avm: No intracranial aneurysms or large vascular malformations are identified. Anterior cerebral arteries: Unremarkable: Middle cerebral arteries: Unremarkable. Basilar artery: Unremarkable. Posterior cerebral arteries: Unremarkable. Other major branches of the posterior circulation: Unremarkable. Major venous structures: Unremarkable. Other findings: Neck: Lungs: Bones: CT/CTA Head AND Neck W/ Contrast IMPRESSION: Minimal plaque at the origin of the right and left internal carotid arteries. No significant stenosis seen. Reading Location: [place] [address] CC: Dr. Lisset Barrera DO; Dr. Lisset Saldivar DO ~ Senior Manufacturing Test Engineer: Signed [facility]07-10-2025 Consult note [facility] Medical Records Department [address] [place] [address] Consultation - Neurology 05/24/25 1253 MR#: [id number] Acct: [id number] Name: LISSET FARMER Rep #:[id number] 1 : 1950 75 From: Khadra Cabezas MD PCP: Dr. 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 CT brain negative. 05/23/25 MRI [facility] brain shows scattered right MCA infarcts. TTE EF 55%. He is on eliquis. Neurological examination shows nonfocal exam, NIHSS-0. ASSESSMENT/PLAN: Acute right MCA ischemic stroke, post stroke day #2. Stroke mechanism is likely cardioembolic due to Afib. 1) Recommend stroke work-up including CTA head/neck 2) Recommend completing stroke order sets including LDL, HgA1c, and PT/OT consults, etc. 2) If LDL < 100, recommend adding Lipitor. 3) Agree with eliquis for stroke prevention 4) Will review CTA when completed. Primary team messaged recs on backline Khadra Cabezas MD HPI Consult Data Date of Consult: 05/24/25 HPI Narrative HPI Narrative: LISSET FARMER is a 75 M RH with history of prostate CA, leukemia, newly diagnosed Afib (05/09/25 started on eliquis but reports he was never able to get if filled, so he hadnt started taking it yet), and KATHY who on 05/22/25 was found in his care without pants at his home, confused, and was brought in to ER by police. In ER, CT brain negative. He was admitted. 05/23/25 MRI [facility] brain shows scattered right MCA infarcts. TTE EF 55%. He is on eliquis. Today the patient reports he feels at baseline, denies confusion currently. 130/97. PFSH Medical History Prostate cancer Elevated PSA [...] Time sulfamethoxazole (From AdvReac Intermediate Rash Verified 05/22/25 17:07 Bactrim) trimethoprim (From Bactrim) AdvReac Intermediate Rash Verified 05/22/25 17:07 Family History Mother Hypertension CVA (cerebral vascular accident) Breast cancer Sister CVA (cerebral vascular accident) Surgical History History of prostate biopsy Basal cell carcinoma of nose Social History household members: none Smoking Status: Never smoker second hand exposure: No alcohol intake: never substance use type: does not use Vital Signs Vital Signs Vital Signs: 05/23/25 13:00 05/23/25 14:00 05/23/25 15:04 Temperature 97.5 F L Temperature Source Temporal Pulse Rate 82 76 77 Pulse Strength Respiratory Rate 20 H 16 21 H Respiratory Effort Respiratory Depth Respiratory Pattern Blood Pressure 113/92 H 129/103 H 124/74 H Blood Pressure Mean 99 111 90 Blood Pressure Source Monitor Monitor Monitor Blood Pressure Position Semi-Fowlers Semi-Fowlers Semi-Fowlers Blood Pressure Location Left Arm Left Arm Left Arm Pulse Ox 92 93 92 Oxygen Delivery Method Room Air Room Air Room Air 05/23/25 15:05 05/23/25 16:00 05/23/25 17:00 Temperature Temperature Source Pulse Rate 65 82 Pulse Strength Respiratory Rate 17 22 H Respiratory Effort Normal Non-Labored Respiratory Depth Normal Respiratory Pattern Normal Blood Pressure 115/92 H 129/82 H Blood Pressure Mean 99 97 Blood Pressure Source Monitor Monitor Blood Pressure Position Semi-Fowlers Semi-Fowlers Blood Pressure Location Left Arm Left Arm Pulse Ox 95 92 Oxygen Delivery Method Room Air Room Air Room Air 05/23/25 17:00 05/23/25 17:02 05/23/25 20:43 Temperature 97.5 F L 96.4 F L Temperature Source Temporal Temporal Pulse Rate 82 94 89 Pulse Strength Respiratory Rate 22 H 18 Respiratory Effort Respiratory Depth Respiratory Pattern Blood Pressure 129/82 H 133/108 H Blood Pressure Mean 97 116 Blood Pressure Source Monitor Monitor Blood Pressure Position Semi-Fowlers Supine Blood Pressure Location Left Arm Left Arm Pulse Ox 92 91 Oxygen Delivery Method Room Air Room Air 05/23/25 20:50 05/23/25 22:00 05/24/25 03:00 Temperature 69.3 F L Temperature Source Temporal Pulse Rate 89 72 Pulse Strength Respiratory Rate 18 Respiratory Effort Normal Non-Labored Respiratory Depth Normal Respiratory Pattern Normal Blood Pressure 127/88 H Blood Pressure Mean 101 Blood Pressure Source Monitor Blood Pressure Position Supine Blood Pressure Location Right Arm Pulse Ox 94 Oxygen Delivery Method Room Air CPAP 05/24/25 09:03 05/24/25 09:09 05/24/25 09:10 Temperature 97.3 F L Temperature Source Temporal Pulse Rate 78 78 Pulse Strength Normal (2+) Respiratory Rate 18 Respiratory Effort Respiratory Depth Respiratory Pattern Blood Pressure 130/97 H Blood Pressure Mean 108 Blood Pressure Source Monitor Blood Pressure Position Sitting Blood Pressure Location Left Arm Pulse Ox 94 Oxygen Delivery Method Room Air 05/24/25 09:16 Temperature Temperature Source Pulse Rate Pulse Strength Respiratory Rate Respiratory Effort Normal Non-Labored Respiratory Depth Normal Respiratory Pattern Normal Blood Pressure Blood Pressure Mean Blood Pressure Source Blood Pressure Position Blood Pressure Location Pulse Ox Oxygen Delivery Method Room Air Weight Weight: 102.5 kg Body Mass Index (BMI) 31.5 EEG Results Procedure Details EEG Procedure Details: LISSET FARMER is a 75 year old M with a past medical history of , who presents for evaluation of Electroencephalogram on DATE at TIME Physical Exam Neuro Neuro Narrative: Neurological examination: General: The patient appears nutritionally appropriate, well-groomed, and appears comfortable in noacute distress. Mental Status: The patient?s mental status was normal including orientation. Language was intact. Cranial nerves: Visual tavera full, and extra-ocular motion was intact. Face motion symmetric. There was no dysarthria. Motor: Normal strength and tone in all four extremities. No pronator drift. Sensation: Intact light touch bilaterally, no extinction. Coordination: Bilateral finger to nose was normal. There was no dysmetria. Gait: deferred Lab / Micro Data 05/23/25 05:55 05/23/25 05:55 Rhythm Strip Rhythm Strip: A-fib Rate: 133 Ectopy: None Imaging Radiology Impression Echocardiogram 05/22/25 19:53 Interpretation Summary Normal LV size. Left ventricular systolic function is normal. The left ventricular ejection fraction is 55 %. Mild concentric left ventricular hypertrophy. Ordering Physician: Jonn Adams Referring Physician: Lisset Barrera Performed By: Sandi Garcia RDCS Active Medications Active Medications Active Medications: Current Medications Generic Name Dose Route Start Last Admin Trade Name Freq PRN Reason Stop Dose Admin Acetaminophen 650 mg 05/22/25 22:45 Acetaminophen 325 Mg Tablet PO Q6H PRN PRN Pain 1-10 Or Fever>100.7 Apixaban 5 mg 05/22/25 22:45 05/24/25 09:09 Apixaban 5 Mg Tablet PO 5 mg BID BARB Administration Furosemide 20 mg 05/22/25 22:45 05/24/25 09:09 Furosemide 20 Mg/2 Ml Vial IV 20 mg BIDLX BARB Administration Protocol Sodium Chloride 250 mls @ 15 mls/hr 05/22/25 22:20 IV .[id number] PRN Saline Flush Sodium Chloride 250 mls @ 15 mls/hr 05/22/25 22:20 IV .[id number] PRN Additional IVPB Infusion Melatonin 3 mg 05/22/25 22:45 Melatonin 3 Mg Tablet PO QHS PRN PRN INSOMNIA Metoprolol Tartrate 100 mg 05/23/25 22:00 05/24/25 09:09 Metoprolol Tartrate 100 Mg Tablet PO 100 mg BID BARB Administration Protocol Ondansetron HCl 4 mg 05/22/25 22:45 Ondansetron 4 Mg/2 Ml Vial IV Q8H PRN PRN NAUSEA/VOMITING Sodium Chloride 10 - 40 ml 05/22/25 22:20 05/24/25 09:09 0.9% Saline Lock 10 Ml Syringe IV 10 ml UD PRN Administration SALINE FLUSH 05/24/25 1325 Cosigner Signature (if applicable): CC: Dr. Lisset Barrera, ~ Signed [facility]07-09-2025 Progress note Author [facility] Note Date/Time May 23, 2025 6:23p m [facility] Medical Records Department [address] [place] [address] Progress Note - Hospitalist 05/23/25 1818 MR#: [id number] Acct: [id number] Name: LISSET FARMER Rep #:[id number] 8 : 1950 75 From: Lisset Saldivar DO PCP: Dr. Lisset Barrera DO Status:ADM IN Location: [place] [address] Reason for Visit Reason for Visit: Diagnoses Unspecified atrial fibrillation (05/22/25) Altered mental status, unspecified (05/22/25) Subjective Subjective Patient was seen and examined today, I elected to take him off his Cardizem dripand increase his beta-eugenie, I also gave him a dose of IV digoxin. Patient remains confused but knows he is in the hospital and knows who he has. I talkedwith the patient's grandson by phone today, I told him that I did not have a reason for the patient's confusion. I asked teleneurology see the patient in consultation tomorrow. Objective Data Objective Data Vital Signs: Vital Signs Temp Pulse Resp BP Pulse Ox O2 Del Method O2 Flow Rate 97.5 F L 94 22 H 129/82 H 92 Room Air 2 05/23/25 17:00 05/23/25 17:02 05/23/25 17:00 05/23/25 17:00 05/23/25 17:00 05/23/25 17:00 05/23/25 08:08 Oxygen Flow Rate (L/min) 2 Oxygen Delivery Method Room Air Weight: 102.5 kg Body Mass Index (BMI) 31.5 Intake & Output: Intake and Output for Last 24 Hours 05/21/25 05/22/25 05/23/25 23:59 23:59 23:59 Intake Total 30.74 / 95.74 825.17 / 825.17 Output Total 2450 / 2450 Balance 30.74 / -304.26 -1624.83 / -1624.83 Lab / Micro Data 05/23/25 05:55 05/23/25 05:55 Labs: Laboratory Results - last 24 hr 05/22/25 17:30: WBC 6.6, RBC 4.47 L, Hgb 13.0, Hct 39.7 L, MCV 88.8, MCH 29.1, MCHC 32.7, RDW Std Deviation 47.7 H, RDW Coeff of Kristen 14.6, Plt Count 204, MPV 11.5, Immature Gran % (Auto) 0.300, Neut % (Auto) 78.5 H, Lymph % (Auto) 12.8 L,Foster % (Auto) 7.3, Eos % (Auto) 0.6, Baso % (Auto) 0.5, Absolute Neuts (auto) 5.2, Absolute Lymphs (auto) 0.85, Nucleated RBC % 0, PT 15.3 H, INR 1.2, Sodium 143, Potassium 3.8, Chloride 107, Carbon Dioxide 23.1, Anion Gap 12, BUN 18, Creatinine 1.26 H, Estim Creat Clear Calc 62.30, Est GFR (MDRD) Non-Af 59 L, BUN/Creatinine Ratio 14.2, Glucose 118 H, Hemoglobin A1c 6.2 H, Calcium 9.6, Total Bilirubin 0.67, AST 18, ALT 12, Alkaline Phosphatase 77, Troponin T High Sens 14 D, NT pro BNP II 4303 H, Total Protein 7.8, Albumin 4.2, Globulin 3.5, Albumin/Globulin Ratio 1.2, Ethyl Alcohol < 10.1 05/22/25 18:37: Urine Color Yellow, Urine Clarity Clear, Urine pH 7.0, Ur Specific [place] 1.010, Urine Protein 15 H, Urine Glucose (UA) Normal, Urine Ketones 5 H, Urine Occult Blood 10 H, Urine Nitrite Negative, Urine Bilirubin Negative, Urine Urobilinogen Normal, Ur Leukocyte Esterase Negative, Urine RBC 0-5 SEEN, Urine WBC 0-5 SEEN, Ur Squamous Epith Cells 0 SEEN, Urine Bacteria 0 SEEN, Urine Mucus 0 SEEN, Urine Opiates Screen NEGATIVE, U Buprenorphine Qual NEGATIVE, Ur Oxycodone Screen NEGATIVE, Urine Methadone Screen NEGATIVE, Urine Fentanyl Screen NEGATIVE, Ur Barbiturates Screen NEGATIVE, Ur Phencyclidine ScrnNEGATIVE, Ur Amphetamines Screen NEGATIVE, U Benzodiazepines Scrn NEGATIVE, Urine Cocaine Screen NEGATIVE, U Cannabinoids Screen NEGATIVE 05/22/25 19:55: Phosphorus 2.9, Magnesium 2.1, Troponin T Hi Sens 2 Hr 13 05/22/25 20:45: Troponin T Hi Sens 2 Hr Cancelled 05/22/25 21:30: Troponin T Hi Sens 4Hr 12 05/22/25 21:53: Ammonia 11.0 L 05/23/25 05:55: WBC 5.7, RBC 4.36 L, Hgb 12.6 L, Hct 39.0 L, MCV 89.4, MCH 28.9,MCHC 32.3, RDW Std Deviation 48.9 H, RDW Coeff of Kristen 14.8 H, Plt Count 193, MPV11.0, Sodium 142, Potassium 3.8, Chloride 105, Carbon Dioxide 27.0, Anion Gap 11, BUN 14, Creatinine 1.16, Estim Creat Clear Calc 67.07, Est GFR (MDRD) Non-Af66, BUN/Creatinine Ratio 12.3, Glucose 111 H, Calcium 9.4 Radiography Diagnostic Testing: Radiology Impression Brain CT 05/22/25 18:13 IMPRESSION: 1. No acute intracranial abnormality. 2. Mild-moderate volume loss and chronic microangiopathic changes. Reading Location: [facility] Chest X-Ray 05/22/25 18:15 IMPRESSION: Cardiomegaly. No evidence of acute pulmonary disease. No pleural effusions. Reading Location: [facility] Abdomen/Pelvis CT 05/22/25 21:02 IMPRESSION: No acute intra-abdominal process. Bilateral renal cysts. Cholelithiasis, no cholecystitis. 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 Fat-containing umbilical hernia. Findings in the axial skeleton most consistent with a metastatic process. [facility] 05/23/25 09:30 IMPRESSION: 1. Patchy gyriform diffusion restriction in the right parietal lobe, posteriorly. This is in the area of the posterior watershed, and could be reversible ischemia, so-called reversible cerebral vasoconstriction syndrome, or acute infarction. Tumor is less likely. 2. There are no foci of abnormal intracranial contrast enhancement to suggest metastatic disease. However, the postcontrast images are degraded by patient motion artifact. 3. Cerebral atrophy. 4. Other findings as noted. Reading Location: [facility] Rhythm Strip Rhythm Strip: A-fib Rate: 133 Ectopy: None Physical Exam Const alert, no apparent distress and healthy appearing General Appearance: cooperative, well kempt and well developed Orientation / Consciousness: awake, oriented to person and oriented to place HEENT normocephalic, head/scalp atraumatic and moist oral mucous membranes Eyes PERRL, EOMs intact bilaterally and conjunctivae normal Neck supple, no JVD, thyroid normal and no carotid bruits General: trachea midline Resp normal respiratory effort, no retractions, no use of accessory muscles and clearto auscultation bilaterally Auscultation: Negative for rales, rhonchi or wheezes Cardio S1 normal heart sound, S2 normal heart sound, no murmurs, no rub and no gallops Cardio Narrative: Heart rate and rhythm is irregular GI normal to inspection, nondistended, normoactive bowel sounds, soft to palpation,non-tender and non-distended Extremity no clubbing, cyanosis or edema Skin no rashes or lesions noted General Skin Exam: no breakdown Neuro CN's II-XII intact bilaterally, no focal motor deficits and no sensory deficits noted Neuro Narrative: Patient exhibits confusion Sensorium / Orientation: awake, alert, oriented to person and oriented to place Speech: speech normal Psych Psych Narrative: Patient exhibits confusion Assessment & Plan Assessment/Plan (1) Atrial fibrillation with rapid ventricular response: PLAN: Plan 1. Atrial fibrillation with rapid ventricular response-patient's heart rate is under adequate control, nonetheless I have decided to take the patient off his Cardizem drip and increase his metoprolol to see if this would control his rate. Also gave the patient 1 dose of IV digoxin. Patient is on Eliquis. #2 encephalopathy-etiology unclear at this point, I will have teleneurology see the patient, patient's MRI did not show any evidence of metastatic cancer or acute stroke. #3 essential hypertension-patient is on lisinopril, metoprolol, and amlodipine #4 prostate cancer-complicates care, management, recovery, and prognosis Total clinical time spent by myself addressing the patient's medical issues, reviewing all of his data, and collaborating with patient's care team: 35 minutes Charges/Coding Visit Charges Inpatient E&M: 73166 Subs Hosp L2 05/23/25 1823 <Electronically signed by Lisset Saldivar DO> Cosigner Signature (if applicable): CC: ~ Signed [facility] Work Phone: 1([phone]) 618-268807-09-[address] [facility] Medical Records Department [address] [place] [address] Progress Note - Hospitalist 05/23/25 1818 MR#: [id number] Acct: [id number] Name: MARILEELISSET PAREDES Rep #:[id number] 8 : 1950 75 From: Lisset Saldivar DO PCP: Dr. Lisset Barrera, Status:ADM IN Location: [place] [address] Reason for Visit Reason for Visit: Diagnoses Unspecified atrial fibrillation (05/22/25) Altered mental status, unspecified (05/22/25) Subjective Subjective Patient was seen and examined today, I elected to take him off his Cardizem dripand increase his beta-uegenie, I also gave him a dose of IV digoxin. Patient remains confused but knows he is in the hospital and knows who he has. I talkedwith the patient's grandson by phone today, I told him that I did not have a reason for the patient's confusion. I asked teleneurology see the patient in consultation tomorrow. Objective Data Objective Data Vital Signs: Vital Signs Temp Pulse Resp BP Pulse Ox O2 Del Method O2 Flow Rate 97.5 F L 94 22 H 129/82 H 92 Room Air 2 05/23/25 17:00 05/23/25 17:02 05/23/25 17:00 05/23/25 17:00 05/23/25 17:00 05/23/25 17:00 05/23/25 08:08 Oxygen Flow Rate (L/min) 2 Oxygen Delivery Method Room Air Weight: 102.5 kg Body Mass Index (BMI) 31.5 Intake & Output: Intake and Output for Last 24 Hours 05/21/25 05/22/25 05/23/25 23:59 23:59 23:59 Intake Total 30.74 / 95.74 825.17 / 825.17 Output Total 2450 / 2450 Balance 30.74 / -304.26 -1624.83 / -1624.83 Lab / Micro Data 05/23/25 05:55 05/23/25 05:55 Labs: Laboratory Results - last 24 hr 05/22/25 17:30: WBC 6.6, RBC 4.47 L, Hgb 13.0, Hct 39.7 L, MCV 88.8, MCH 29.1, MCHC 32.7, RDW Std Deviation 47.7 H, RDW Coeff of Kristen 14.6, Plt Count 204, MPV 11.5, Immature Gran % (Auto) 0.300, Neut % (Auto) 78.5 H, Lymph % (Auto) 12.8 L,Foster % (Auto) 7.3, Eos % (Auto) 0.6, Baso % (Auto) 0.5, Absolute Neuts (auto) 5.2, Absolute Lymphs (auto) 0.85, Nucleated RBC % 0, PT 15.3 H, INR 1.2, Sodium 143, Potassium 3.8, Chloride 107, Carbon Dioxide 23.1, Anion Gap 12, BUN 18, Creatinine 1.26 H, Estim Creat Clear Calc 62.30, Est GFR (MDRD) Non-Af 59 L, BUN/Creatinine Ratio 14.2, Glucose 118 H, Hemoglobin A1c 6.2 H, Calcium 9.6, Total Bilirubin 0.67, AST 18, ALT 12, Alkaline Phosphatase 77, Troponin T High Sens 14 D, NT pro BNP II 4303 H, Total Protein 7.8, Albumin 4.2, Globulin 3.5, Albumin/Globulin Ratio 1.2, Ethyl Alcohol < 10.1 05/22/25 18:37: Urine Color Yellow, Urine Clarity Clear, Urine pH 7.0, Ur Specific [place] 1.010, Urine Protein 15 H, Urine Glucose (UA) Normal, Urine Ketones 5 H, Urine Occult Blood 10 H, Urine Nitrite Negative, Urine Bilirubin Negative, Urine Urobilinogen Normal, Ur Leukocyte Esterase Negative, Urine RBC 0-5 SEEN, Urine WBC 0-5 SEEN, Ur Squamous Epith Cells 0 SEEN, Urine Bacteria 0 SEEN, Urine Mucus 0 SEEN, Urine Opiates Screen NEGATIVE, U Buprenorphine Qual NEGATIVE, Ur Oxycodone Screen NEGATIVE, Urine Methadone Screen NEGATIVE, Urine Fentanyl Screen NEGATIVE, Ur Barbiturates Screen NEGATIVE, Ur Phencyclidine ScrnNEGATIVE, Ur Amphetamines Screen NEGATIVE, U Benzodiazepines Scrn NEGATIVE, Urine Cocaine Screen NEGATIVE, U Cannabinoids Screen NEGATIVE 05/22/25 19:55: Phosphorus 2.9, Magnesium 2.1, Troponin T Hi Sens 2 Hr 13 05/22/25 20:45: Troponin T Hi Sens 2 Hr Cancelled 05/22/25 21:30: Troponin T Hi Sens 4Hr 12 05/22/25 21:53: Ammonia 11.0 L 05/23/25 05:55: WBC 5.7, RBC 4.36 L, Hgb 12.6 L, Hct 39.0 L, MCV 89.4, MCH 28.9,MCHC 32.3, RDW Std Deviation 48.9 H, RDW Coeff of Kristen 14.8 H, Plt Count 193, MPV11.0, Sodium 142, Potassium 3.8, Chloride 105, Carbon Dioxide 27.0, Anion Gap 11, BUN 14, Creatinine 1.16, Estim Creat Clear Calc 67.07, Est GFR (MDRD) Non-Af66, BUN/Creatinine Ratio 12.3, Glucose 111 H, Calcium 9.4 Radiography Diagnostic Testing: Radiology Impression Brain CT 05/22/25 18:13 IMPRESSION: 1. No acute intracranial abnormality. 2. Mild-moderate volume loss and chronic microangiopathic changes. Reading Location: [facility] Chest X-Ray 05/22/25 18:15 IMPRESSION: Cardiomegaly. No evidence of acute pulmonary disease. No pleural effusions. Reading Location: [facility] Abdomen/Pelvis CT 05/22/25 21:02 IMPRESSION: No acute intra-abdominal process. Bilateral renal cysts. Cholelithiasis, no cholecystitis. 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 Fat-containing umbilical hernia. Findings in the axial skeleton most consistent with a metastatic process. Reading Location: [place] [id number] Brain MRI 05/23/25 09:30 IMPRESSION: 1. Patchy gyriform diffusion restriction in the right parietal lobe, posteriorly. This is in the area of the posterior watershed, and could be reversible ischemia, so-called reversible cerebral vasoconstriction syndrome, or acute infarction. Tumor is less likely. 2. There are no foci of abnormal intracranial contrast enhancement to suggest metastatic disease. However, the postcontrast images are degraded by patient motion artifact. 3. Cerebral atrophy. 4. Other findings as noted. Reading Location: [facility] Rhythm Strip Rhythm Strip: A-fib Rate: 133 Ectopy: None Physical Exam Const alert, no apparent distress and healthy appearing General Appearance: cooperative, well kempt and well developed Orientation / Consciousness: awake, oriented to person and oriented to place HEENT normocephalic, head/scalp atraumatic and moist oral mucous membranes Eyes PERRL, EOMs intact bilaterally and conjunctivae normal Neck supple, no JVD, thyroid normal and no carotid bruits General: trachea midline Resp normal respiratory effort, no retractions, no use of accessory muscles and clearto auscultation bilaterally Auscultation: Negative for rales, rhonchi or wheezes Cardio S1 normal heart sound, S2 normal heart sound, no murmurs, no rub and no gallops Cardio Narrative: Heart rate and rhythm is irregular GI normal to inspection, nondistended, normoactive bowel sounds, soft to palpation,non-tender and non-distended Extremity no clubbing, cyanosis or edema Skin no rashes or lesions noted General Skin Exam: no breakdown Neuro CN's II-XII intact bilaterally, no focal motor deficits and no sensory deficits noted Neuro Narrative: Patient exhibits confusion Sensorium / Orientation: awake, alert, oriented to person and oriented to place Speech: speech normal Psych Psych Narrative: Patient exhibits confusion Assessment & Plan Assessment/Plan (1) Atrial fibrillation with rapid ventricular response: PLAN: Plan 1. Atrial fibrillation with rapid ventricular response-patient's heart rate is under adequate control, nonetheless I have decided to take the patient off his Cardizem drip and increase his metoprololto see if this would control his rate. Also gave the patient 1 dose of IV digoxin. Patient is on Eliquis. #2 encephalopathy-etiology unclear at this point, I will have teleneurology see the patient, patient's MRI did not show any evidence of metastatic cancer or acute stroke. #3 essential hypertension-patient is on lisinopril, metoprolol, and amlodipine #4 prostate cancer-complicates care, management, recovery, and prognosis Total clinical time spent by myself addressing the patient's medical issues, reviewing all of his data, and collaborating with patient's care team: 35 minutes Charges/Coding Visit Charges Inpatient E&M: 480[address] [facility] Hosp L2 05/23/25 1823 Cosigner Signature (if applicable): CC: ~ Signed [facility]07-09-2025 Discharge summary Author Nam Jaimes [facility] Note Date/Time May 23, 2025 12:09 am [facility] Medical Records Department [address] [place] [address] Emergency Department Summary 05/22/25 MR#: [id number] Acct: [id number] 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 Lisset Barrera, DO Status:ADM IN Location: [address] History of Present Illness Chief Complaint: Mental Status Change Detail of Chief Complaint: Altered mental status. Informant: patient and family (Grandson and another family member in the room.) Onset/Context/Timing Onset: Today Timing: Continuous Current Severity: Moderate Maximum Severity: Moderate Narrative Narrative: 75-year-old male history of prostate cancer, hairy cell leukemia, A-fib. On lisinopril metoprolol. Today he was found in his car without any pants on at home. He was found by the police who were concerned this is a medical problem brought him to the hospital. Patient denies recent illness. He denies headache. He denies blood thinners. He denies nausea, vomiting or diarrhea. He denies headache or head trauma. He denies fever or dysuria. He does seem confused. Prior similar symptoms: No Recent Illness/Hospitalization: No PFSH PFS Medical History Prostate cancer Elevated [...] Time sulfamethoxazole (From AdvReac Intermediate Rash Verified 05/22/25 17:07 Bactrim) trimethoprim (From Bactrim) AdvReac Intermediate Rash Verified 05/22/25 17:07 Family History Mother Hypertension CVA (cerebral vascular accident) Breast cancer Sister CVA (cerebral vascular accident) Surgical History History of prostate biopsy Basal cell carcinoma of nose Social History household members: none Smoking Status: Never smoker second hand exposure: No alcohol intake: never substance use type: does not use ROS ROS ED ROS Narrative Denies recent illness. Review of Systems ROS Unobtainable: due to mental status Constitutional Constitutional ED: Denies chills or fever(s) Eyes Eyes: Denies blurry vision ENT ENT ED: Denies ear pain Cardiovascular Cardiovascular: Denies chest pain Respiratory/Chest Respiratory/Chest: Denies cough Gastrointestinal Gastrointestinal: Denies abdominal pain Genitourinary Genitourinary ED: Denies dysuria Musculoskeletal Musculoskeletal: Denies arthralgias Integumentary Denies abscess Neurologic Neurologic: Denies headache(s) Psychiatric Psychiatric: Denies anxiety Endocrine Endocrinology: Denies cold intolerance Hematologic/Lymphatic Hematologic/Lymphatic: Reports none Allergic/Immunologic Allergic/Immunologic ED: Denies mouth swelling, tongue swelling or urticaria EXAM Physical Exam Narrative Exam Narrative: Seen via male sitting upright in bed. Vital signs show A-fib RVR rate of 130. H EENT exam pupils round react light. Extra motions are intact. No facial droop. Normal speech. No signs of trauma to his face or head. No hematoma. Neck nontender. No lymphadenopathy. Back nontender mild abrasion left lower back but he denies how that happened. Lungs clear to auscultation bilaterally. Heart A-fib RVR rate about 130 no murmur. Chest wall ribs nontender. Abdomen soft nontender. Moving all 4 extremities. 1-2+ pitting edema both lower extremities. 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 Normal dorsi plantarflexion. No drift. Neurologically he is awake. He is alert. He is answering questions. He knew the president he did not know the year or the month. There is no slurred speech. He has normal motor strength. But he does seem confused. Const Vital Signs: 05/22/25 17:03 05/22/25 17:42 05/22/25 18:54 Temperature 98.6 F Temperature Source Oral Pulse Rate 109 H 138 H 147 H Respiratory Rate 20 H 22 H 22 H Blood Pressure 134/63 H 118/97 H Blood Pressure Mean 86 104 Pulse Ox 96 98 94 Oxygen Delivery Method Room Air Room Air Room Air Positive well developed; Negative for cachectic, contractures or unkempt General Appearance ED: well developed; Negative for unkempt, cachectic, contractures, cyanotic, diaphoretic, NAD or pallor Nutritional Appearance: Negative for cachectic HEENT Reports moist mucous membranes Eyes PERRL and EOMs intact bilaterally Neck no lymphadenopathy, supple and no JVD Chest Wall inspection of chest normal and palpation of chest normal Resp normal respiratory effort and clear to auscultation bilaterally Cardio Rate: tachycardic Rhythm: abnormal rhythm irregularly irregular GI normal to inspection, nondistended, normoactive bowel sounds, non-tender, non-distended and no masses Palpation: soft; Negative for tender or guarding Back/Spine no CVA tenderness General Back: Negative for CVA tenderness Cervical Spine: Negative for cervical spine tenderness Thoracic Spine / Upper Back: Negative for thoracic spinal tenderness or paraspinal muscle tenderness Lumbar Spine / Lower Back: Negative for lumbar spinal tenderness Extremity Negative for normal to inspection Extremity Narrative: 1-2+ pitting edema both lower extremities. Nontender. Normal strength. General Extremety ED: Yes edema General Extremity: edema Neuro No oriented x3 and CN's II-XII intact bilaterally Neuro Narrative: Knows the president. Does not know the month or year. Seems confused. No focal motor deficits. Sensorium / Orientation: alert and orientation impaired Motor Exam: strength 5/5 throughout Psych mental status grossly normal Appearance: Negative for unkempt Skin no rashes or lesions noted and No no wounds Skin Narrative: Abrasion left lower back. General Skin Exam: Negative for jaundice or pallor Lesions: No lesion noted Rashes: No rashes noted Trauma: Negative for abrasion Wounds: Negative for wounds noted MDM MDM MDM Narrative Medical decision making narrative: 75-year-old male with mental status change. Found at home in his car without his pants on. He is confused to month and year. Patient will get an altered level of consciousness workup. He is in A-fib RVR received Cardizem. He has peripheral edema in his lower extremities. I will do a CAT scan of his head. This could also be an infectious etiology. Currently he is not hypoxic his pulse ox is 96% on room air. Exam patient is doing well at 7:40 PM. He still seems somewhat confused. I spoke to his son and another family member at bedside. He has A-fib RVR was given Cardizem his heart rate still 140 he will be started on Cardizem drip. Hewas written for Eliquis the other day with the pharmacy did not have it ready sohe is not on that yet. None of his labs really show why he should have an altered mental status. There is no obvious signs of infection currently. Thereis no toxidrome. He does have some CHF from his A-fib RVR. But his CT of his brain and his chest x-ray look good. I will speak to the hospitalist to admit him for altered level consciousness and A-fib RVR. History & Record Review Discussion w/independent historian: Patient and Family Additional record(s) reviewed:: Prior inpatient record, Prior outpatient record,Prior ED visit and Prior labs Lab Data Attestation: I reviewed the patient's lab results. Lab results narrative: CBC shows a white count of 6.6. H&H 13 and 39. Platelets 204. PT/INR 15 and 1.2. Chemistries show sodium 143. Gap 12. BUN and creatinine 18 and 1.26. Glucose 118. Liver enzymes unremarkable. BNP is elevated at 4303. Urinalysis is negative. Alcohol and urine tox are negative. CAT scan of the brain shows chronic changes. Labs: Laboratory Results - last 24 hr 05/22/25 05/22/25 17:30 18:37 WBC 6.6 RBC 4.47 L Hgb 13.0 Hct 39.7 L MCV 88.8 MCH 29.1 MCHC 32.7 RDW Std Deviation 47.7 H RDW Coeff of Kristen 14.6 Plt Count 204 MPV 11.5 Immature Gran % (Auto) 0.300 Neut % (Auto) 78.5 H Lymph % (Auto) 12.8 L Foster % (Auto) 7.3 Eos % (Auto) 0.6 Baso % (Auto) 0.5 Absolute Neuts (auto) 5.2 Absolute Lymphs (auto) 0.85 Nucleated RBC % 0 PT 15.3 H INR 1.2 Sodium 143 Potassium 3.8 Chloride 107 Carbon Dioxide 23.1 Anion Gap 12 BUN 18 Creatinine 1.26 H Estim Creat Clear Calc 62.30 Est GFR (MDRD) Non-Af 59 L BUN/Creatinine Ratio 14.2 Glucose 118 H Calcium 9.6 Total Bilirubin 0.67 AST 18 ALT 12 Alkaline Phosphatase 77 Troponin T High Sens 14 D NT pro BNP II 4303 H Total Protein 7.8 Albumin 4.2 Globulin 3.5 Albumin/Globulin Ratio 1.2 Urine Color Yellow Urine Clarity Clear Urine pH 7.0 Ur Specific [place] 1.010 Urine Protein 15 H Urine Glucose (UA) Normal Urine Ketones 5 H Urine Occult Blood 10 H Urine Nitrite Negative Urine Bilirubin Negative Urine Urobilinogen Normal Ur Leukocyte Esterase Negative Urine RBC 0-5 SEEN Urine WBC 0-5 SEEN Ur Squamous Epith Cells 0 SEEN Urine Bacteria 0 SEEN Urine Mucus 0 SEEN Urine Opiates Screen NEGATIVE U Buprenorphine Qual NEGATIVE Ur Oxycodone Screen NEGATIVE Urine Methadone Screen NEGATIVE Urine Fentanyl Screen NEGATIVE Ur Barbiturates Screen NEGATIVE Ur Phencyclidine Scrn NEGATIVE Ur Amphetamines Screen NEGATIVE U Benzodiazepines Scrn NEGATIVE Urine Cocaine Screen NEGATIVE U Cannabinoids Screen NEGATIVE Ethyl Alcohol < 10.1 Radiography Chest X-Ray - ED: 2 View, Read by ED Physician, Normal, Lungs, Mediastinum, BonyStructures, No Acute Disease and Chronic Changes Diagnostic Testing: Clinical Impression(s) from Imaging Studies Brain CT 05/22/25 18:13 IMPRESSION: 1. No acute intracranial abnormality. 2. Mild-moderate volume loss and chronic microangiopathic changes. Reading Location: [facility] Chest X-Ray 05/22/25 18:15 IMPRESSION: Cardiomegaly. No evidence of acute pulmonary disease. No pleural effusions. Reading Location: [facility] Chest x-ray, 2 views, AP and lateral, interpreted by myself shows normal cardiacsilhouette. Normal mediastinum. No pneumonia. Chronic changes. No acute process. Rhythm Strip Rhythm Strip: A-fib Rate: 133 Ectopy: None EKG Initial EKG: Attestation: I personally reviewed and interpreted this EKG as follows: Interpretation: No Acute Injury Pattern and Atrial Fibrillation Comments: A-fib with RVR rate in 130s. No acute signs of LA or ischemia. 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 Call [facility] ([phone]) or report to the closest Emergency Room. Call 911 if necessary. 05/23/25 0009 <Electronically signed by Nam Jaimes MD> Cosigner Signature (if applicable): CC: Dr. Lisset Barrera, DO ~ Signed [facility] Work Phone: [phone]) 152-211107-09-2025 History and physical note Author Jonn Adams [facility] Note Date/Time May 22, 2025 11:51 pm [facility] Medical Records Department [address] [place] [address] H&P Exam - Hospitalist 05/22/251945 MR#: [id number] Acct: [id number] Name: LISSET FARMER Rep #:[id number] : 1950 75 From: Jonn ross DO PCP: Dr. 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 Patient lives at home alone and has for many years. Family lives in the area. Had 2 grandsons in the ED with him todaywho noted that they saw him about 1 week ago and he did not appear confused at all. Today patient was in his car without any pants on at home. It appears hisneighbors called the police and they noted that he was sitting there comfortablybut had no pants on and was confused, so they brought him in for further evaluation. Medical history significant for hairy cell leukemia and prostate cancer; here for leukemia is in remission and prostate cancer has been stable per Dr. Denis with oncology. On arrival to the ED he was normotensive and stableon room air at rest, but he was in A-fib with RVR with rate to the 130s to 140s. He follows with pulmonology for KATHY and was noted at his appointment on 05/09 veronica in new onset A-fib with RVR. Went to the ED for this and cardiology recommended starting Eliquis and outpatient follow-up. It is unclear if he has started Eliquis. In the ED today his CT brain was unremarkable. Chest x-ray showed cardiomegaly with mild vascular congestion but no pleural effusions. Labworkup was fairly benign aside from BNP 4303. Ammonia level normal. UA negative. Given his uncontrolled A-fib with RVR and altered mentation, hospitalist was contacted for admission. I saw the patient at bedside in the ED, 2 grandsons were present. Patient was sitting back comfortably in bed and in no acute distress. He was alert and oriented to person and place but not time. He was able to tell me who his grandsons were, but he otherwise had difficulty answering questions and had poor insight into what brought him to thehospital today. On exam he had +2-3 lower extremity pitting edema up to the knees. Otherwise had fairly clear lung sounds bilaterally. Was in A-fib with RVR but no murmur noted. No other acute concerns noted. Will be admitted for further management. [facility] Medical History Prostate cancer Elevated PSA Kidney [...] Time sulfamethoxazole (From AdvReac Intermediate Rash Verified 05/22/25 17:07 Bactrim) trimethoprim (From Bactrim) AdvReac Intermediate Rash Verified 05/22/25 17:07 Family History Mother Hypertension CVA (cerebral vascular accident) Breast cancer Sister CVA (cerebral vascular accident) Surgical History History of prostate biopsy Basal cell carcinoma of nose Social History household members: none Smoking Status: Never smoker second hand exposure: No alcohol intake: never substance use type: does not use ROS Constitutional Constitutional: Denies chills, fatigue, fever(s) or weakness Eyes Eyes: Denies change in vision Cardiovascular Cardiovascular: Reports edema; Denies chest pain, dyspnea on exertion, lightheadedness, palpitations or rapid heart rate Respiratory/Chest Respiratory/Chest: Denies shortness of breath at rest Gastrointestinal Gastrointestinal: Denies abdominal pain Genitourinary Genitourinary: Denies dysuria Neurologic Neurologic: Denies dizziness, focal weakness or headache(s) Vital Signs Vital Signs Vital Signs: 05/22/25 17:03 05/22/25 17:42 05/22/25 18:54 Temperature 98.6 F Temperature Source Oral Pulse Rate 109 H 138 H 147 H Respiratory Rate 20 H 22 H 22 H Blood Pressure 134/63 H 118/97 H Blood Pressure Mean 86 104 Pulse Ox 96 98 94 Oxygen Delivery Method Room Air Room Air Room Air Weight Weight: 104.44 kg Body Mass Index (BMI) 32.1 Physical Exam Const alert and no apparent distress Constitutional Narrative: Elderly male, class I obesity, alert and oriented to person and place but not time and poor insight into medical condition, otherwise sitting back fairly comfortably in bed, in no acute distress. General Appearance: cooperative and comfortable HEENT normocephalic, head/scalp atraumatic, hearing grossly normal bilaterally, nasal mucous membranes and turbinates normal and moist oral mucous membranes Eyes PERRL, EOMs intact bilaterally and conjunctivae normal Neck full ROM Chest inspection of chest normal Resp normal respiratory effort and no use of accessory muscles Resp Narrative: Breathe comfortably on room air at rest. Mild crackles noted bilaterally but otherwise good breath sounds throughout with no wheezing noted. Cardio no murmurs and peripheral pulses 2+ throughout Cardio Narrative: A-fib with RVR. GI normal to inspection, nondistended, normoactive bowel sounds, soft to palpation,non-tender and non-distended Back/Spine normal ROM Extremity Extremity Narrative: +2-3 lower extremity pitting edema up to the knees. Skin no rashes or lesions noted Neuro moves all extremities and no focal motor deficits Speech: speech normal Motor Exam: strength 5/5 throughout Results Lab / Micro Data 05/22/25 17:30 05/22/25 17:30 Labs: Laboratory Results - last 24 hr 05/22/25 17:30: WBC 6.6, RBC 4.47 L, Hgb 13.0, Hct 39.7 L, MCV 88.8, MCH 29.1, MCHC 32.7, RDW Std Deviation 47.7 H, RDW Coeff of Kristen 14.6, Plt Count 204, MPV 11.5, Immature Gran % (Auto) 0.300, Neut % (Auto) 78.5 H, Lymph % (Auto) 12.8 L,Foster % (Auto) 7.3, Eos % (Auto) 0.6, Baso % (Auto) 0.5, Absolute Neuts (auto) 5.2, Absolute Lymphs (auto) 0.85, Nucleated RBC % 0, PT 15.3 H, INR 1.2, Sodium 143, Potassium 3.8, Chloride 107, Carbon Dioxide 23.1, Anion Gap 12, BUN 18, Creatinine 1.26 H, Estim Creat Clear Calc 62.30, Est GFR (MDRD) Non-Af 59 L, BUN/Creatinine Ratio 14.2, Glucose 118 H, Calcium 9.6, Total Bilirubin 0.67, AST18, ALT 12, Alkaline Phosphatase 77, Troponin T High Sens 14 D, NT pro BNP II 4303 H, Total Protein 7.8, Albumin 4.2, Globulin 3.5, Albumin/Globulin Ratio 1.2, Ethyl Alcohol < 10.1 05/22/25 18:37: Urine Color Yellow, Urine Clarity Clear, Urine pH 7.0, Ur Specific [place] 1.010, Urine Protein 15 H, Urine Glucose (UA) Normal, Urine Ketones 5 H, Urine Occult Blood 10 H, Urine Nitrite Negative, Urine Bilirubin Negative, Urine Urobilinogen Normal, Ur Leukocyte Esterase Negative, Urine RBC 0-5 SEEN, Urine WBC 0-5 SEEN, Ur Squamous Epith Cells 0 SEEN, Urine Bacteria 0 SEEN, Urine Mucus 0 SEEN, Urine Opiates Screen NEGATIVE, U Buprenorphine Qual NEGATIVE, Ur Oxycodone Screen NEGATIVE, Urine Methadone Screen NEGATIVE, Urine Fentanyl Screen NEGATIVE, Ur Barbiturates Screen NEGATIVE, Ur Phencyclidine ScrnNEGATIVE, Ur Amphetamines Screen NEGATIVE, U Benzodiazepines Scrn NEGATIVE, Urine Cocaine Screen NEGATIVE, U Cannabinoids Screen NEGATIVE Rhythm Strip Rhythm Strip: A-fib Rate: 133 Ectopy: None Imaging Radiology Impression Brain CT 05/22/25 18:13 IMPRESSION: 1. No acute intracranial abnormality. 2. Mild-moderate volume loss and chronic microangiopathic changes. Reading Location: [facility] Chest X-Ray 05/22/25 18:15 IMPRESSION: Cardiomegaly. No evidence of acute pulmonary disease. No pleural effusions. Reading Location: [facility] Assessment & Plan Assessment/Plan (1) Altered mental status: (2) Atrial fibrillation with rapid ventricular response: PLAN: Plan Patient is a 75-year-old male who presented to [facility] ED on 05/22/2025 with confusion and A-fib with RVR. 1. Altered mental status ? Admit under inpatient status to PCU. Unclear etiology at this time. Alert and oriented x [address] but not time. Lives at home alone and reportedly per family is A&O x 3 at baseline. No focal deficits and CT brain negative. Ammonia level normal. Tox screen negative. Noninfectious appearing and labs largely benign. Given cancer history as below, will obtain MRI brain with and without contrast for further evaluation. Speech therapy consulted for cognitive evaluation as well. 2. A-fib with RVR with CHF exacerbation, essential hypertension ? In A-fib with RVR with rate in the 140s on admit. New diagnosis of A-fib at office appointment on 05/09. Is on home Lopressor 50 mg daily. Rate remained elevated after IV Cardizem bolus and initiation on Cardizem drip. Continue Cardizem drip and will increase to p.o. Lopressor 50 mg twice daily. Continue home Eliquis. NT-proBNP 4303, chest x-ray with mild vascular congestion and lower extremity edema noted on exam. Echocardiogram ordered. Will treat with IV Lasix 20 mg twice daily for now, monitor daily BMP and urine output. Hold home amlodipine and lisinopril. 3. History of hairy cell leukemia and prostate cancer ? Follows with Dr. Denis with oncology, last office visit in 07/2024. He recentlycame he was diagnosed in 2016; completed chemotherapy and has been in remission since then. Diagnosed with stage IV prostate cancer with spread to the retroperitoneal lymph nodes and bones in 2019. Completed chemotherapy in 2018 and has been on maintenance hormonal therapy since then. Notably his PSA has been uptrending significantly from 4.26 (07/2024) to 19.6 (11/2024) to 35.00 (02/2025). However there are no notes from oncology with direct us for treatmentgiven this uptrending PSA. Obtained CT abdomen pelvis with IV contrast on this admit for further evaluation and it showed findings in the axial skeleton most consistent with a metastatic process but was otherwise benign. PSA ordered as well. No inpatient oncology needs, continue close outpatient follow-up. 4. KATHY ? Follows with outpatient pulmonology for KATHY. Continue PAP therapy at night. DVT prophylaxis: Not indicated, on Eliquis CODE STATUS: Full code, unverified Expected disposition: TBD Total clinical time spent by myself addressing the patient's medical issues, reviewing all the data, and collaborating with patient's care team: 75 minutes. Charges/Coding Visit Charges Inpatient E&M: 21751 Init Hosp L3 05/22/25 2351 <Electronically signed by Jonn Adams DO> Cosigner Signature (if applicable): CC: Dr. Jonn Adams DO; Dr. Lisset Barrera DO~ Signed [facility] Work Phone: [phone] Discharge summary [facility] Medical Records Department [address] [place] [address] Emergency Department Summary 05/22/25 MR#: [id number] Acct: [id number] Name: LISSET FARMER Rep #:[id number] : 1950 75 From: Nam Jaimes MD PCP: Dr. Lisset Barrera DO Status:ADM IN Location: [place] [id number]- 1 HPI History of Present Illness Chief Complaint: Mental Status Change Detail of Chief Complaint: Altered mental status. Informant: patient and family (Grandson and another family member in the room.) Onset/Context/Timing Onset: Today Timing: Continuous Current Severity: Moderate Maximum Severity: Moderate Narrative Narrative: 75-year-old male history of prostate cancer, hairy cell leukemia, A-fib. On lisinopril metoprolol. Today he was found in his car without any pants on at home. He was found by the police who were concerned this is a medical problem brought him to the hospital. Patient denies recent illness. He denies headache. He denies blood thinners. He denies nausea, vomiting or diarrhea. He denies headache or head trauma. He denies fever or dysuria. He does seem confused. Prior similar symptoms: No Recent Illness/Hospitalization: No PFSH PFS Medical History Prostate cancer Elevated [...] Time sulfamethoxazole (From AdvReac Intermediate Rash Verified 05/22/25 17:07 Bactrim) trimethoprim (From Bactrim) AdvReac Intermediate Rash Verified 05/22/25 17:07 Family History Mother Hypertension CVA (cerebral vascular accident) Breast cancer Sister CVA (cerebral vascular accident) Surgical History History of prostate biopsy Basal cell carcinoma of nose Social History household members: none Smoking Status: Never smoker second hand exposure: No alcohol intake: never substance use type: does not use ROS ROS ED ROS Narrative Denies recent illness. Review of Systems ROS Unobtainable: due to mental status Constitutional Constitutional ED: Denies chills or fever(s) Eyes Eyes: Denies blurry vision ENT ENT ED: Denies ear pain Cardiovascular Cardiovascular: Denies chest pain Respiratory/Chest Respiratory/Chest: Denies cough Gastrointestinal Gastrointestinal: Denies abdominal pain Genitourinary Genitourinary ED: Denies dysuria Musculoskeletal Musculoskeletal: Denies arthralgias Integumentary Denies abscess Neurologic Neurologic: Denies headache(s) Psychiatric Psychiatric: Denies anxiety Endocrine Endocrinology: Denies cold intolerance Hematologic/Lymphatic Hematologic/Lymphatic: Reports none Allergic/Immunologic Allergic/Immunologic ED: Denies mouth swelling, tongue swelling or urticaria EXAM Physical Exam Narrative Exam Narrative: Seen via male sitting upright in bed. Vital signs show A-fib RVR rate of 130. H EENT exam pupils round react light. Extra motions are intact. No facial droop. Normal speech. No signs of trauma to hisface or head. No hematoma. Neck nontender. No lymphadenopathy. Back nontender mild abrasion left lower back but he denies how that happened. Lungs clear to auscultation bilaterally. Heart A- fib RVR rate about 130 no murmur. Chest wall ribs nontender. Abdomen soft nontender. Moving all 4 extremities. 1-2+ pitting edema both lower extremities. 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 Normal dorsi plantarflexion. No drift. Neurologically he is awake. He is alert. He is answering questions. He knew the president he did not know the year or the month. There is no slurred speech. He has normal motor strength. But he does seem confused. Const Vital Signs: 05/22/25 17:03 05/22/25 17:42 05/22/25 18:54 Temperature 98.6 F Temperature Source Oral Pulse Rate 109 H 138 H 147 H Respiratory Rate 20 H 22 H 22 H Blood Pressure 134/63 H 118/97 H Blood Pressure Mean 86 104 Pulse Ox 96 98 94 Oxygen Delivery Method Room Air Room Air Room Air Positive well developed; Negative for cachectic, contractures or unkempt General Appearance ED: well developed; Negative for unkempt, cachectic, contractures, cyanotic, diaphoretic, NAD or pallor Nutritional Appearance: Negative for cachectic HEENT Reports moist mucous membranes Eyes PERRL and EOMs intact bilaterally Neck no lymphadenopathy, supple and no JVD Chest Wall inspection of chest normal and palpation of chest normal Resp normal respiratory effort and clear to auscultation bilaterally Cardio Rate: tachycardic Rhythm: abnormal rhythm irregularly irregular GI normal to inspection, nondistended, normoactive bowel sounds, non-tender, non- distended and no masses Palpation: soft; Negative for tender or guarding Back/Spine no CVA tenderness General Back: Negative for CVA tenderness Cervical Spine: Negative for cervical spine tenderness Thoracic Spine / Upper Back: Negative for thoracic spinal tenderness or paraspinal muscle tenderness Lumbar Spine / Lower Back: Negative for lumbar spinal tenderness Extremity Negative for normal to inspection Extremity Narrative: 1-2+ pitting edema both lower extremities. Nontender. Normal strength. General Extremety ED: Yes edema General Extremity: edema Neuro No oriented x3 and CN's II-XII intact bilaterally Neuro Narrative: Knows the president. Does not know the month or year. Seems confused. No focal motor deficits. Sensorium / Orientation: alert and orientation impaired Motor Exam: strength 5/5 throughout Psych mental status grossly normal Appearance: Negative for unkempt Skin no rashes or lesions noted and No no wounds Skin Narrative: Abrasion left lower back. General Skin Exam: Negative for jaundice or pallor Lesions: No lesion noted Rashes: No rashes noted Trauma: Negative for abrasion Wounds: Negative for wounds noted MDM MDM MDM Narrative Medical decision making narrative: 75-year-old male with mental status change. Found at home in his car without his pants on. He is confused to month and year. Patient will get an altered level of consciousness workup. He is in A-fib RVR received Cardizem. He has peripheral edema in his lower extremities. I will do a CAT scan of hishead. This could also be an infectious etiology. Currently he is not hypoxic his pulse ox is 96% on room air. Exam patient is doing well at 7:40 PM. He still seems somewhat confused. I spoke to his son and another family member at bedside. He has A-fib RVR was given Cardizem his heart rate still 140 he will be started on Cardizem drip. Hewas written for Eliquis the other day with the pharmacy did not have it ready sohe is not on that yet. None of his labs really show why he should have an altered mental status. There is no obvious signs of infection currently. Thereis no toxidrome. He does have some CHF from his A-fib RVR. But his CT of his brain and his chest x-ray look good. I will speak to the hospitalist to admit him for altered level consciousness and A-fib RVR. History & Record Review Discussion w/independent historian: Patient and Family Additional record(s) reviewed:: Prior inpatient record, Prior outpatient record,Prior ED visit and Prior labs Lab Data Attestation: I reviewed the patient's lab results. Lab results narrative: CBC shows a white count of 6.6. H&H 13 and 39. Platelets 204. PT/INR 15 and 1.2. Chemistries show sodium 143. Gap 12. BUN and creatinine 18 and 1.26. Glucose 118. Liver enzymes unremarkable. BNP is elevated at 4303. Urinalysis is negative. Alcohol and urine tox are negative. CAT scan of the brain shows chronic changes. Labs: Laboratory Results - last 24 hr 05/22/25 05/22/25 17:30 18:37 WBC 6.6 RBC 4.47 L Hgb 13.0 Hct 39.7 L MCV 88.8 MCH 29.1 MCHC 32.7 RDW Std Deviation 47.7 H RDW Coeff of Kristen 14.6 Plt Count 204 MPV 11.5 Immature Gran % (Auto) 0.300 Neut % (Auto) 78.5 H Lymph % (Auto) 12.8 L Foster % (Auto) 7.3 Eos % (Auto) 0.6 Baso % (Auto) 0.5 Absolute Neuts (auto) 5.2 Absolute Lymphs (auto) 0.85 Nucleated RBC % 0 PT 15.3 H INR 1.2 Sodium 143 Potassium 3.8 Chloride 107 Carbon Dioxide 23.1 Anion Gap 12 BUN 18 Creatinine 1.26 H Estim Creat Clear Calc 62.30 Est GFR (MDRD) Non-Af 59 L BUN/Creatinine Ratio 14.2 Glucose 118 H Calcium 9.6 Total Bilirubin 0.67 AST 18 ALT 12 Alkaline Phosphatase 77 Troponin T High Sens 14 D NT pro BNP II 4303 H Total Protein 7.8 Albumin 4.2 Globulin 3.5 Albumin/Globulin Ratio 1.2 Urine Color Yellow Urine Clarity Clear Urine pH 7.0 Ur Specific [place] 1.010 Urine Protein 15 H Urine Glucose (UA) Normal Urine Ketones 5 H Urine Occult Blood 10 H Urine Nitrite Negative Urine Bilirubin Negative Urine Urobilinogen Normal Ur Leukocyte Esterase Negative Urine RBC 0-5 SEEN Urine WBC 0-5 SEEN Ur Squamous Epith Cells 0 SEEN Urine Bacteria 0 SEEN Urine Mucus 0 SEEN Urine Opiates Screen NEGATIVE U Buprenorphine Qual NEGATIVE Ur Oxycodone Screen NEGATIVE Urine Methadone Screen NEGATIVE Urine Fentanyl Screen NEGATIVE Ur Barbiturates Screen NEGATIVE Ur Phencyclidine Scrn NEGATIVE Ur Amphetamines Screen NEGATIVE U Benzodiazepines Scrn NEGATIVE Urine Cocaine Screen NEGATIVE U Cannabinoids Screen NEGATIVE Ethyl Alcohol < 10.1 Radiography Chest X-Ray - ED: 2 View, Read by ED Physician, Normal, Lungs, Mediastinum, BonyStructures, No Acute Disease and Chronic Changes Diagnostic Testing: Clinical Impression(s) from Imaging Studies Brain CT 05/22/25 18:13 IMPRESSION: 1. No acute intracranial abnormality. 2. Mild-moderate volume loss and chronic microangiopathic changes. Reading Location: [facility] Chest X-Ray 05/22/25 18:15 IMPRESSION: Cardiomegaly. No evidence of acute pulmonary disease. No pleural effusions. Reading Location: [facility] Chest x-ray, 2 views, AP and lateral, interpreted by myself shows normal cardiacsilhouette. Normal mediastinum. No pneumonia. Chronic changes. No acute process. Rhythm Strip Rhythm Strip: A-fib Rate: 133 Ectopy: None EKG Initial EKG: Attestation: I personally reviewed and interpreted this EKG as follows: Interpretation: No Acute Injury Pattern and Atrial Fibrillation Comments: A-fib with RVR rate in 130s. No acute signs of LA or ischemia. Critical Care Time Critical Care Time: Yes Critical care time (excluding procedures): 30-74 minutes, Including time spent:,Discussing w/Patient &/or Family/Heavy Duty Mechanic, Discussing w/Consultants, ArrangingAdmission or Transfer, Performing Direct Patient Care at Bedside and - (35 minutes.) Discharge Plan Dx/Rx/DC Orders Clinical Impression: Altered level of consciousness, Atrial fibrillation with rapid ventricular response Disposition Disposition: Acute Care Hospital [facility] What to do if you have Problems For any increased pain, shortness of breath, bleeding, nausea or vomiting, chestpain, or any unexpected problems, contact your Primary Care Provider. Call [facility] ([phone]) or report tothe closest Emergency Room. Call 911 if necessary. 05/23/25 0009 Cosigner Signature (if applicable): CC: Dr. Lisset Barrera, DO ~ Signed [facility]07-08-2025 History and physical note [facility] Medical Records Department [address] [place] [address] H&P Exam - Hospitalist 05/22/251945 MR#: [id number] Acct: [id number] Name: LISSET FARMER Rep #:[id number] : 1950 75 From: Jonn ross DO PCP: Dr. 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 Patient lives at home alone and has for many years. Family lives in the area. Had 2 grandsons in the ED with him todaywho noted that they saw him about 1 week ago and he did not appear confused at all. Today patient was in his car without any pants on at home. It appears hisneighbors called the police and they noted that he was sitting there comfortablybut had no pants on and was confused, so they brought him in for further evaluation. Medical history significant for hairy cell leukemia and prostate cancer; here for leukemia is in remission and prostate cancer has been stable per Dr. Denis with oncology. On arrival to the ED he was normotensive and stableon room air at rest, but he was in A-fib with RVR with rate to the 130s to 140s. He follows with pulmonology for KATHY and was noted at his appointment on 05/09 veronica in new onset A-fib with RVR. Went to the ED for this and cardiology recommended starting Eliquis and outpatient follow-up. It is unclear if he has started Eliquis.In the ED today his CT brain was unremarkable. Chest x-ray showed cardiomegaly with mild vascular congestion but no pleural effusions. Labworkup was fairly benign aside from BNP 4303. Ammonia level normal. UA negative. Given his uncontrolled A-fib with RVR and altered mentation, hospitalist was contacted for admission. I saw the patient at bedside in the ED, 2 grandsons were present. Patient was sitting back comfortably in bed and in no acute distress. He was alert and oriented to person and place but not time. He was able to tell me who his grandsons were, but he otherwise had difficulty answ ering questions and had poor insight into what brought him to thehospital today. On exam he had +2-3 lower extremity pitting edema up to the knees. Otherwise had fairly clear lung sounds bilaterally.Was in A-fib with RVR but no murmur noted. No other acute concerns noted. Will be admitted for further management. [facility] Medical History Prostate cancer Elevated PSA Kidney [...] Time sulfamethoxazole (From AdvReac Intermediate Rash Verified 05/22/25 17:07 Bactrim) trimethoprim (From Bactrim) AdvReac Intermediate Rash Verified 05/22/25 17:07 Family History Mother Hypertension CVA (cerebral vascular accident) Breast cancer Sister CVA (cerebral vascular accident) Surgical History History of prostate biopsy Basal cell carcinoma of nose Social History household members: none Smoking Status: Never smoker second hand exposure: No alcohol intake: never substance use type: does not use ROS Constitutional Constitutional: Denies chills, fatigue, fever(s) or weakness Eyes Eyes: Denies change in vision Cardiovascular Cardiovascular: Reports edema; Denies chest pain, dyspnea on exertion, lightheadedness, palpitations or rapid heart rate Respiratory/Chest Respiratory/Chest: Denies shortness of breath at rest Gastrointestinal Gastrointestinal: Denies abdominal pain Genitourinary Genitourinary: Denies dysuria Neurologic Neurologic: Denies dizziness, focal weakness or headache(s) Vital Signs Vital Signs Vital Signs: 05/22/25 17:03 05/22/25 17:42 05/22/25 18:54 Temperature 98.6 F Temperature Source Oral Pulse Rate 109 H 138 H 147 H Respiratory Rate 20 H 22 H 22 H Blood Pressure 134/63 H 118/97 H Blood Pressure Mean 86 104 Pulse Ox 96 98 94 Oxygen Delivery Method Room Air Room Air Room Air Weight Weight: 104.44 kg Body Mass Index (BMI) 32.1 Physical Exam Const alert and no apparent distress Constitutional Narrative: Elderly male, class I obesity, alert and oriented to person and place but not time and poor insightinto medical condition, otherwise sitting back fairly comfortably in bed, in no acute distress. General Appearance: cooperative and comfortable HEENT normocephalic, head/scalp atraumatic, hearing grossly normal bilaterally, nasal mucous membranes and turbinates normal and moist oral mucous membranes Eyes PERRL, EOMs intact bilaterally and conjunctivae normal Neck full ROM Chest inspection of chest normal Resp normal respiratory effort and no use of accessory muscles Resp Narrative: Breathe comfortably on room air at rest. Mild crackles noted bilaterally but otherwise good breath sounds throughout with no wheezing noted. Cardio no murmurs and peripheral pulses 2+ throughout Cardio Narrative: A-fib with RVR. GI normal to inspection, nondistended, normoactive bowel sounds, soft to palpation,non-tender and non-distended Back/Spine normal ROM Extremity Extremity Narrative: +2-3 lower extremity pitting edema up to the knees. Skin no rashes or lesions noted Neuro moves all extremities and no focal motor deficits Speech: speech normal Motor Exam: strength 5/5 throughout Results Lab / Micro Data 05/22/25 17:30 05/22/25 17:30 Labs: Laboratory Results - last 24 hr 05/22/25 17:30: WBC 6.6, RBC 4.47 L, Hgb 13.0, Hct 39.7 L, MCV 88.8, MCH 29.1, MCHC 32.7, RDW Std Deviation 47.7 H, RDW Coeff of Kristen 14.6, Plt Count 204, MPV 11.5, Immature Gran % (Auto) 0.300, Neut % (Auto) 78.5 H, Lymph % (Auto) 12.8 L,Foster % (Auto) 7.3, Eos % (Auto) 0.6, Baso % (Auto) 0.5, Absolute Neuts (auto) 5.2, Absolute Lymphs (auto) 0.85, Nucleated RBC % 0, PT 15.3 H, INR 1.2, Sodium 143, Potassium 3.8, Chloride 107, Carbon Dioxide 23.1, Anion Gap 12, BUN 18, Creatinine 1.26 H, Estim Creat Clear Calc 62.30, Est GFR (MDRD) Non-Af 59 L, BUN/Creatinine Ratio 14.2, Glucose 118 H, Calcium9.6, Total Bilirubin 0.67, AST18, ALT 12, Alkaline Phosphatase 77, Troponin T High Sens 14 D, NT pro BNP II 4303 H, Total Protein 7.8, Albumin 4.2, Globulin 3.5, Albumin/Globulin Ratio 1.2, Ethyl Alcohol < 10.1 05/22/25 18:37: Urine Color Yellow, Urine Clarity Clear, Urine pH 7.0, Ur Specific [place] 1.010, Urine Protein 15 H, Urine Glucose (UA) Normal, Urine Ketones 5 H, Urine Occult Blood 10 H, Urine Nitrite Negative, Urine Bilirubin Negative, Urine Urobilinogen Normal, Ur Leukocyte Esterase Negative, Urine RBC 0-5 SEEN, Urine WBC 0-5 SEEN, Ur Squamous Epith Cells 0 SEEN, Urine Bacteria 0 SEEN, Urine Mucus 0 SEEN, Urine Opiates Screen NEGATIVE, U Buprenorphine Qual NEGATIVE, Ur Oxycodone Screen NEGATIVE, Urine Methadone Screen NEGATIVE, Urine Fentanyl Screen NEGATIVE, Ur Barbiturates Screen NEGATIVE, Ur Phencyclidine ScrnNEGATIVE, Ur Amphetamines Screen NEGATIVE, U Benzodiazepines Scrn NEGATIVE, Urine Cocaine Screen NEGATIVE, U Cannabinoids Screen NEGATIVE Rhythm Strip Rhythm Strip: A-fib Rate: 133 Ectopy: None Imaging Radiology Impression Brain CT 05/22/25 18:13 IMPRESSION: 1. No acute intracranial abnormality. 2. Mild-moderate volume loss and chronic microangiopathic changes. Reading Location: [facility] Chest X-Ray 05/22/25 18:15 IMPRESSION: Cardiomegaly. No evidence of acute pulmonary disease. No pleural effusions. Reading Location: [facility] Assessment & Plan Assessment/Plan (1) Altered mental status: (2) Atrial fibrillation with rapid ventricular response: PLAN: Plan Patient is a 75-year-old male who presented to [facility] ED on 05/22/2025 with confusion and A-fib with RVR. 1. Altered mental status ? Admit under inpatient status to PCU. Unclear etiology at this time. Alert and oriented x [address] but not time. Lives at home alone and reportedly per family is A&O x 3 at baseline. No focal deficits and CT brain negative. Ammonia level normal. Tox screen negative. Noninfectious appearing and labs largely benign. Given cancer history as below, will obtain MRI brain with and without contrast for further evaluation. Speech therapy consulted for cognitive evaluation as well. 2. A-fib with RVR with CHF exacerbation, essential hypertension ? In A-fib with RVR with rate in the 140s on admit. New diagnosis of A-fib at office appointment on05/09. Is on home Lopressor 50 mg daily. Rate remained elevated after IV Cardizem bolus and initiation on Cardizem drip. Continue Cardizem drip and will increase to p.o. Lopressor 50 mg twice daily. Continue home Eliquis. NT-proBNP 4303, chest x-ray with mild vascular congestion and lower extremity edema noted on exam. Echocardiogram ordered. Will treat with IV Lasix 20 mg twice daily for now, monitor daily BMP and urine output. Hold home amlodipine and lisinopril. 3. History of hairy cell leukemia and prostate cancer ? Follows with Dr. Denis with oncology, last office visit in 07/2024. He recentlycame he was diagnosed in 2015; completed chemotherapy and has been in remission since then. Diagnosed with stage IV prostate cancer with spread to the retroperitoneal lymph nodes and bones in 2019. Completed chemotherapyin 2018 and has been on maintenance hormonal therapy since then. Notably his PSA has been uptrending significantly from 4.26 (07/2024) to 19.6 (11/2024) to 35.00 (02/2025). However there are no notes from oncology with direct us for treatmentgiven this uptrending PSA. Obtained CT abdomen pelvis with IV contrast on this admit for further evaluation and it showed findings in the axial skeleton most consistent with a metastatic process but was otherwise benign. PSA ordered as well. No inpatient oncology needs, continue close outpatient follow-up. 4. KATHY ? Follows with outpatient pulmonology for KATHY. Continue PAP therapy at night. DVT prophylaxis: Not indicated, on Eliquis CODE STATUS: Full code, unverified Expected disposition: TBD Total clinical time spent by myself addressing the patient's medical issues, reviewing all the data, and collaborating with patient's care team: 75 minutes. Charges/Coding Visit Charges Inpatient E&M: 22969 Init Hosp L3 05/22/25 2351 Cosigner Signature (if applicable): CC: Dr. Jonn Adams, DO; Dr. Lisset Barrera, DO~ Signed [facility]07-08-2025 Radiology Diagnostic study note [facility] Imaging Services [address] [place] [address] Abdomen/Pelvis W IV Cont ONLY MR#: [id number] Acct: [id number] Name: LISSET FARMER Rep #: [id number] : 1950 M 75 From: Abb luciano Monroe MD PCP: Dr. Lisset Barrera, Status: ADM IN Study:Abdomen/Pelvis W IV Cont ONLY Date of E xam: 05/22/25 Exam# [id number] Ordering Dr: Jonn Isabel DO PROCEDURE: ABDOMEN/PELVIS W IV CONT ONLY 05/22/2025 REASON FOR EXAM: ABD PAIN, WORSENING PSA W/ H/O PROSTATE CA TECHNIQUE: ABDOMEN/PELVIS W IV CONT ONLY Coronal and Sagittal reconstruction series were provided. CONTRAST: Isovue-370 VOLUME: 100 mL One or more dose reduction techniques were used (e.g., Automated exposure control, adjustment of the mA and/or kV according to patient size, use of iterative reconstruction technique. RADIATION DOSE SUMMARY: CTDlvol: 23.27 mGy DLP: 1492.13 mGycm COMPARISON: 07/09/2022 FINDINGS: The visualized lung bases are unremarkable. Normal liver. Numerous stones are seen in the gallbladder lumen. No wall thickening or pericholecystic fluid. Normal extrahepatic biliary system. 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 The splenic parenchyma is otherwise unremarkable.. Normal pancreas. Normal bilateral adrenal glands. Normal size of the right kidney. There is no right renal mass. 11.2 cm cyst isseen in the upper pole of the right kidney. There are no right renal calculi. There is no right hydronephrosis. Normal visualized right ureter. Normal size of the left kidney. There is no left renal mass. Multiple cysts are seen in the left kidney largest measuring 7.8 cm in the upper pole There are no left renal calculi. There is no left hydronephrosis. Normal visualized left ureter. Normal visualized stomach. Normal small intestine. Normal colon. The appendixis visualized and appears normal. There is no demonstrated peritoneal fluid. Normal abdominal aorta. Normal inferior vena cava. Normal retroperitoneum. Normal urinary bladder. There is no pelvic mass lesion or lymphadenopathy. There is no pelvic fluid. Small fat-containing umbilical hernia is seen. Scattered sclerotic changes are seen involving the axial skeleton most consistent with metastatic process. CT/Abdomen/Pelvis W IV Cont ONLY IMPRESSION: No acute intra-abdominal process. Bilateral renal cysts. Cholelithiasis, no cholecystitis. 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 Fat-containing umbilical hernia. Findings in the axial skeleton most consistent with a metastatic process. Reading [facility] CC: Dr. Jonn Adams DO; Dr. Lisset Barrera DO ~ Senior Manufacturing Test Engineer: Signed [facility]07-08-2025 Radiology Diagnostic study note [facility] Imaging Services [address] [place], [place] [address] Chest PA and Lateral MR#: [id number] Acct: [id number] Name: LISSET FARMER Rep #: [id number] : 1950 M 75 From: Beny Petit MD PCP: Dr. Lisset Barrera DO Status: REG ER Study:Chest PA and Lateral Date of Exam: 05/22/25 Exam# [id number] Ordering Dr: Mellissa Jaimes MD PROCEDURE: CHEST PA AND LATERAL 05/22/2025 REASON FOR EXAM: A-FIB AND EDEMA TECHNIQUE: CHEST PA AND LATERAL COMPARISON: 05/09/2025 FINDINGS: Lungs/Pleura: No focal consolidation or findings of pulmonary edema. No pneumothorax or pleural effusions. Heart/Mediastinum: Enlarged cardiac silhouette. Tortuous and calcified aorta. Bones/Soft tissues: Multilevel degenerative changes of the spine. Rounded calcific density in the left upper abdomen corresponding to a calcified splenic granuloma. RAD/Chest PA and Lateral IMPRESSION: Cardiomegaly. No evidence of acute pulmonary disease. No pleural effusions. Reading Location: [id number] CC: Dr. Nam Jaimes MD; Dr. Lisset Barrera DO ~ Senior Manufacturing Test Engineer: Signed [facility]07-08-2025 Radiology Diagnostic study note [facility] Imaging Services [address] [place], [place] [address] Brain/Head without Contrast MR#: [id number] Acct: [id number] Name: LISSET FARMER Rep #: [id number] 6 : 1950 M 75 From: Beny Petit MD PCP: Dr. Lisset Barrera DO Status: REG ER Study:Brain/Head without Contrast Date of Exa m: 05/22/25 Exam# [id number] Ordering Dr: Mellissa Jaimes MD PROCEDURE: BRAIN/HEAD WITHOUT CONTRAST 05/22/2025 REASON FOR EXAM: ALOC TECHNIQUE: BRAIN/HEAD WITHOUT CONTRAST Coronal and Sagittal reconstruction series were provided. One or more dose reduction techniques were used (e.g., Automated exposure control, adjustment of the mA and/or kV according to patient size, use of iterative reconstruction technique. RADIATION DOSE SUMMARY: CTDlvol: 44.99 mGy DLP: 829.85 mGycm COMPARISON: None available. FINDINGS: No acute intracranial hemorrhage, extra-axial collection, mass effect or evidence of acute infarct. Mild-moderate generalized brain parenchymal volume loss, and chronic microangiopathic changes. Atherosclerotic calcification of the intracranial vasculature, with a somewhat dolichoectatic appearance of the basilar artery and proximal MCAs. Orbital contents are unremarkable. Intact skull base and calvarium. Clear paranasal sinuses and mastoid air cells. CT/Brain/Head without Contrast IMPRESSION: 1. No acute intracranial abnormality. 2. Mild-moderate volume loss and chronic microangiopathic changes. Reading Location: [facility] CC: Dr. Nam Jaimes MD; Dr. Lisset Barrera DO ~ Senior Manufacturing Test Engineer: Signed [facility]06-25-2025 Discharge summary [facility] Medical Records Department [address] [place] [address] Emergency Department Summary 05/09/25 MR#: [id number] Acct: [id number] Name: LISSET FARMER Rep #:[id number] : 1950 75 From: Steven Hurst DO PCP: Dr. Lisset Barrera DO Status:REG ER Location: ED HPI History [...] complaints at this point in time. PFSH PFSH Medical History Prostate cancer Elevated PSA [...] follow commands knew that he was at [facility] year is 2024 Skin: Warm, dry, [...] they advised to send him to the emergencydepartment to be evaluated. They state that they [...] myself and by radiology showed no acute cardiopulmonaryprocesses. Called and discussed case with on-call excelsior machine tender Dr. Echavarria who states that the patient [...] emergency department immediately for a head CT. Heis advised to return with worsening symptoms or [...] 71.8 H Lymph % (Auto) 16.0 L Foster % (Auto) 8.2 Eos % (Auto) 2.8 [...] acute osseous process is seen. Reading Location: [place] [address] Discharge Plan Triage Chief Complaint: Palpitations ED [...] have a head bleed. Follow-up with the excelsior machine tender that you referred to. Return with worsening symptoms or concerns Print Language: Citizen Of [place] Disposition Disposition: Home, Self Care What to do if you have Problems For any increased pain, shortness of breath, bleeding, nausea or vomiting, chestpain, or any unexpected problems, contact your Primary Care Provider. Call [facility] ([phone]) or report tothe closest Emergency Room. Call 911 if necessary. 05/09/25 1420 Cosigner Signature (if applicable): CC: Dr. Lisset Barrera DO ~ Signed [facility]06-25-2025 Discharge summary Author Steven Hurst [facility] Note Date/Time May 09, 2025 2:20 pm [facility] Medical Records Department [address] [place] [address] Emergency Department Summary 05/09/25 MR#: [id number] Acct: [id number] Name: LISSET FARMER Rep #:[id number] : 1950 75 From: Steven Hurst DO PCP: Dr. Lisset Barrera DO Status:REG ER Location: ED HPI History [...] no complaints at this point in time. [facility] Medical History Prostate cancer Elevated PSA Kidney [...] follow commands knew that he was at [facility] year is 2024 Skin: Warm, dry, [...] processes. Called and discussed case with on-call excelsior machine tender Dr. Echavarria who states that the patient [...] 71.8 H Lymph % (Auto) 16.0 L Foster % (Auto) 8.2 Eos % (Auto) 2.8 [...] acute osseous process is seen. Reading Location: [place] [address] Discharge Plan Triage Chief Complaint: Palpitations ED [...] have a head bleed. Follow-up with the excelsior machine tender that you referred to. Return with worsening symptoms or concerns Print Language: Citizen Of [place] Disposition Disposition: Home, Self Care What to do if you have Problems For any increased pain, shortness of breath, bleeding, nausea or vomiting, chestpain, or any unexpected problems, contact your Primary Care Provider. Call [facility] ([phone]) or report to the closest Emergency Room. Call 911 if necessary. 05/09/25 1420 <Electronically signed by Steven Hurst DO> Cosigner Signature (if applicable): CC: Dr. Lisset Barrera DO ~ Signed [facility] Work Phone: [phone]) 933-522406-25-2025 Radiology Diagnostic study note [facility] Imaging Services [address] [place] [address] Chest 1 View (Portable) MR#: [id number] Acct: [id number] Name: LISSET FARMER Rep #: [id number] : 1950 M 75 From: Jovon Angela MD PCP: Dr. Lisset Barrera DO Status: PRE ER Study:Chest 1 View (Portable) Date of Exam: 05/09/25 Exam# [id number] Ordering Dr: Valentino Hurst DO PROCEDURE: CHEST 1 VIEW (PORTABLE) [...] acute osseous process is seen. Reading Location: [place] [address] CC: Dr. Lisset Barrera DO; Dr. Steven Hurst DO ~ Senior Manufacturing Test Engineer: Signed [facility]06-25-2025 Evaluation note* Diagnosis Onset Date Resolution Status Admit Date Irregular heart rhythm acute [facility] 2024 8:50am Obesity chronic May 09 8:50am KATHY (obstructive sleep apnea) chroni c May 09, 2025 8:50am [facility] Work Phone: 1(396) 931-275306-25-2025 Evaluation note* Diagnosis Onset Date Resolution Status Admit Date Irregular heart rhythm acute [facility] 2024 8:50am Obesity chronic May 09 8:50am KATHY (obstructive sleep apnea) chroni c May 09, 2025 8:50am Altered level of consciousness acute May 22, 2025 7:47pm Atrial fibrillation with rap id ventricular response acute May 22, 7:47pm [facility] Work Phone: 1(833) 220-635906-25-2025 Evaluation note* Diagnosis Onset Date Resolution Status Admit Date Irregular heart rhythm acute 2024 8:50am Obesity chronic May 09 8:50am KATHY (obstructive sleep apnea) chroni c May 09, 2025 8:50am Altered level of consciousness acute May 22, 2025 7:47pm Altered mental status acute May 7:47pm Atrial fibrillation with rap id ventricular response acute May 22, 7:47pm Ischemic stroke acute May 22, 2025 7:47pm [facility] Work Phone: Evaluation note* Diagnosis Onset Date Resolution Status Obesity chronic KATHY (obstructive sleep apnea) chronic Chemotherapy management, encounter for acute Elevated PSA acute Encounter for education acut e History of prostate biopsy a cute Hairy cell leukemia chronic Prostate cancer chronic 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 Work Phone: Evaluation note* Diagnosis Onset Date Resolution Status Obesity chronic KATHY (obstructive sleep apnea) chronic [facility] Work Phone: Evaluation note* Diagnosis Onset Date Resolution Status Admit Date Irregular heart rhythm acute Ju 2024 8:50am [facility] Work Phone: Reason for referral (narrative)No reason for referral information [facility] Work Phone: Chief Complaint and Reason for Visit Chief Complaint CC RESULTS TO DR MAIR Iqbal 1 Y FU ONC/HEM PROSTATE CANCER 6MO [...] (obstructive sleep apnea) May 09, 2025 8:50am Chief Complaint Admit Date 1 Y FU May 09, 2025 8:50 am palpitations May 09, 2025 9:51 am ALTERED MENTAL STATUS, AFIB W/RVR May 222024 7:47pm Reason for Visit Admit Date Irregular heart rhythm May 09, 2025 8 :50am Obesity May 09, 2025 8:50 am KATHY (obstructive sleep apnea) May 09, 2025 8:50am Altered level of consciousness May 22, 2025 7:47pm Atrial fibrillation with rapid ventricul ar response May 22, 2025 7:47pm Chief Complaint Admit Date 1 Y May 09, 2025 8:50 am palpitations May 09, 2025 9:51 am ALTERED MENTAL STATUS, AFIB W/RVR May 222024 7:47pm ALTERED MENTAL STATUS, AFIB W/RVR May 232024 6:18pm ALTERED MENTAL STATUS, AFIB W/RVR May 152024 4:50pm ALTERED MENTAL STATUS, AFIB W/RVR May 152024 4:17pm ALTERED MENTAL STATUS, AFIB W/RVR May 152024 6:56pm ALTERED MENTAL STATUS, AFIB W/RVR May 152024 11:28am Reason for Visit Admit Date Irregular heart rhythm May 09, 2025 8 :50am Obesity May 09, 2025 8:50 am KATHY (obstructive sleep apnea) May 09, 2025 8:50am Altered level of consciousness May 22, 2025 7:47pm Altered mental status May 22, 2025 7:4 7pm Atrial fibrillation with rapid ventricul ar response May 22, 2025 7:47pm Ischemic stroke May 22, 2025 7:47p m Family History Relationship Condition Age at Onset Recorded Date/T harmony mother Hypertension Unknown Cerebrovascular accident (CVA) Unknown Malignant neoplasm of breast Unknown sister Cerebrovascular accident (CVA) Unknown Advance Directives Advance Directive Response Recorded Date/ Time Advance Directives No June 01 12:43pm Living Will No June 01, 2019 12:43pm Power of Management Trainer No June 01 9 12:43pm Advance Directive Response Recorded Date/ Time Advance Directives on File No June 01, 2019 12:43pm Advance Directives No June 01 12:43pm Living Will No June 01, 2019 12:43pm Power of Management Trainer No June 01 9 12:43pm Advance Directive Response Recorded Date/ Time Living Will No June 01, 2019 12:43pm Do you have a Healthcare Power of Management Trainer? No June 01, 2019 12:43pm Advance Directives No June 01 12:43pm Advance Directive Response Recorded Date/ Time Living Will No June 01, 2019 12:43pm Do you have a Healthcare Power of Management Trainer? No June 01, 2019 12:43pm Do you have a Healthcare Power of Management Trainer? No May 09, 2025 10:16am Advance Directives No June 01 12:43pm Advance Directive Response Recorded Date/ Time Living Will No June 01, 2019 12:43pm Do you have a Healthcare Power of Management Trainer? No June 01, 2019 12:43pm Do you have a Healthcare Power of Management Trainer? No May 09, 2025 10:16am Do you have a Healthcare Power of Management Trainer? No May 22, 2025 5:31pm Advance Directives No June 01 12:43pm Advance Directive Response Recorded Date/ Time Living Will No June 01, 2019 12:43pm Do you have a Healthcare Power of Management Trainer? No June 01, 2019 12:43pm Do you have a Healthcare Power of Management Trainer? No May 09, 2025 10:16am Do you have a Healthcare Power of Management Trainer? No May 22, 2025 10:17pm Advance Directives No June 01 12:43pm Summary [...] DO Primary Care Provider Active Pastora Hunt LAMP ASSEMBLER-C Attending Provider, Referrin g Provider Active Team [...] 09, 2025 End: May 09, 2025 Dr. Lisste Barrera DO Referring Provider Active Start: May 09, 2025 End: May 09, 2025 Janessa Zamora NP, LAMP ASSEMBLER-C Attending Provider Active Start: May 09, 2025 End: May 09, 2025 Team Status: Inactive Member Role Status Dates Dr. Lisset Barrera DO Primary Care Provider Active Start: May 09, 2025 End: May 09, 2025 Dr. Steven Hurst DO Emergency Provider Active Start: May 09, 2025 End: May 09, 2025 Team Status: Active Member Role/Relationship Status Dates Dr. Lisset Barrera DO Primary Care Provider Active Team Status: Inactive Member Role/Relationship Status Dates Dr. Lisset Barrera DO Primary Care Provider Active Start: March 06, 2025 End: March 06, 2025 Dr. Regan Guzman MD Attending Provider Active Start: March 06, 2025 End: March 06, 2025 Dr. Regan Guzman MD Referring Provider Active Start: March 06, 2025 End: March 06, 2025 Team Status: Inactive Member Role/Relationship Status Dates Dr. Lisset Barrera DO Primary Care Provider Active Start: May 09, 2025 End: May 09, 2025 Dr. Lisset Barrera DO Referring Provider Active Start: May 09, 2025 End: May 09, 2025 Janessa Zamora LAMP ASSEMBLER, LAMP ASSEMBLER-C Attending Provider Active Start: May 09, 2025 End: May 09, 2025 Team Status: Inactive Member Role/Relationship Status Dates Dr. Lisset Barrera DO Primary Care Provider Active Start: May 09, 2025 End: May 09, 2025 Dr. Steven Hurst DO Attending Provider Active Start: May 09, 2025 End: May 09, 2025 Dr. Steven Hurst DO Emergency Provider Active Start: May 09, 2025 End: May 09, 2025 Team Status: Active Member Role/Relationship Status Dates Dr. Lisset Barrera DO Primary Care Provider Active Start: May 22, 2025 Dr. Nam Jaimes MD Emergency Provider Active S tart: May 22, 2025 Dr. Jonn Adams DO Admit Provider Active Start: May 22, 2025 Dr. Jonn Adams DO Attending Provider Active Start: May 22, 2025 Team Status: Inactive Member Role/Relationship Status Dates Dr. Lisset Barrera DO Primary Care Provider Active Start: May 22, 2025 End: May 27, 2025 Dr. Nam Jaimes MD Emergency Provider Active S tart: May 22, 2025 End: May 27, 2025 Dr. Jonn Adams DO Admit Provider Active Start: May 22, 2025 End: May 27, 2025 Dr. Jonn Adams DO Other Provider Active Start: May 22, 2025 End: May 27, 2025 Dr. Lisset Saldivar DO Attending Provider Active Start: May 22, 2025 End: May 27, 2025 Team Status: Active Member Role/Relationship Status Dates Dr. Lisset Barrera DO Primary Care Provider Active Start: May 23, 2025 Dr. Saud Echavarria MD Attending Provider Active S tart: May 23, 2025 Team Status: Active Member Role/Relationship Status Dates Dr. Lisset Barrera DO Primary Care Provider Active Start: May 23, 2025 Dr. Nam Jaimes MD Emergency Provider Active S tart: May 23, 2025 Dr. Jonn Adams DO Admit Provider Active Start: May 23, 2025 Dr. Jonn Adams DO Other Provider Active Start: May 23, 2025 Dr. Lisset Saldivar DO Attending Provider Active Start: May 23, 2025 Dr. Lisset Saldivar DO Other Provider Active S tart: May 23, 2025 King Brandon MD Other Provider Active Start: 2024 Dr. Ruth Polanco MD Other Provider Active Start: May 23, 2025 Deanna Handy MD Other Provider Active Start : May 23, 2025 Dr. Sakina Le DO Other Provider Active St art: May 23, 2025 Dr. Payton Wren MD Other Provider Active Start: May 23, 2025 Dr. Madan Zacarias MD Other Provider Active Sta rt: May 23, 2025 Dr. Ofelia Dykes MD Other Provider Active Start : May 23, 2025 Dr. Hugo Ricardo MD Other Provider Active Start: May 23, 2025 Dr. Stephan Johnson MD Other Provider Active Start : May 23, 2025 Dr. Siva Culp MD Other Provider Active Sta rt: May 23, 2025 Bre Stewart MD Other Provider Active Start : May 23, 2025 Dr. Cb Chapa MD Other Provider Active St art: May 23, 2025 Dr. Jahaira Reza MD Other Provider Active Start : May 23, 2025 Dr. Desiree Bermudez MD Other Provider Active Sta rt: May 23, 2025 Dr. Sonam Almanza MD Other Provider Active Start: May 23, 2025 Dr. Vishnu Potts MD Other Provider Active St art: May 23, 2025 Dr. Genaro Ontiveros MD Other Provider Active Star t: May 23, 2025 Dr. Al Soto MD Other Provider Active St art: May 23, 2025 Dr. Khadra Cabezas MD Other Provider Active Start: May 23, 2025 Abilio Pacheco MD Other Provider Active Start: May 23, 2025 Team Status: Active Member Role/Relationship Status Dates Dr. Lisset Barrera DO Primary Care Provider Active Start: May 24, 2025 Dr. Nam Jaimes MD Emergency Provider Active S tart: May 24, 2025 Dr. Jonn Adams DO Admit Provider Active Start: May 24, 2025 Dr. Jonn Adams DO Other Provider Active Start: May 24, 2025 Dr. Lisset Saldivar DO Attending Provider Active Start: May 24, 2025 Dr. Lisset Saldivar DO Other Provider Active S tart: May 24, 2025 King Brandon MD Other Provider Active Start: 2024 Dr. Ruth Polanco MD Other Provider Active Start: May 24, 2025 Deanna Handy MD Other Provider Active Start : May 24, 2025 Dr. Sakina Le DO Other Provider Active St art: May 24, 2025 Dr. Payton Wren MD Other Provider Active Start: May 24, 2025 Dr. Madan Zacarias MD Other Provider Active Sta rt: May 24, 2025 Dr. Ofelia Dykes MD Other Provider Active Start : May 24, 2025 Dr. Hugo Ricardo MD Other Provider Active Start: May 24, 2025 Dr. Stephan Johnson MD Other Provider Active Start : May 24, 2025 Dr. Siva Culp MD Other Provider Active Sta rt: May 24, 2025 Bre Stewart MD Other Provider Active Start : May 24, 2025 Dr. Cb Chapa MD Other Provider Active St art: May 24, 2025 Dr. Jahaira Reza MD Other Provider Active Start : May 24, 2025 Dr. Desiree Bermudez MD Other Provider Active Sta rt: May 24, 2025 Dr. Sonam Almanza MD Other Provider Active Start: May 24, 2025 Dr. Vishnu Potts MD Other Provider Active St art: May 24, 2025 Dr. Genaro Ontiveros MD Other Provider Active Star t: May 24, 2025 Dr. Al Soto MD Other Provider Active St art: May 24, 2025 Dr. Khadra Cabezas MD Other Provider Active Start: May 24, 2025 Abilio Pacheco MD Other Provider Active Start: May 24, 2025 Team Status: Active Member Role/Relationship Status Dates Dr. Lisset Barrera DO Primary Care Provider Active Start: May 25, 2025 Dr. Nam Jaimes MD Emergency Provider Active S tart: May 25, 2025 Dr. Jonn Mosteller , DO Admit Provider Active Start: May 25, 2025 Dr. Jonn Adams DO Other Provider Active Start: May 25, 2025 Dr. Lisset Saldivar DO Attending Provider Active Start: May 25, 2025 Dr. Lisset Saldivar DO Other Provider Active S tart: May 25, 2025 Team Status: Active Member Role/Relationship Status Dates Dr. Lisset Barrera DO Primary Care Provider Active Start: May 26, 2025 Dr. Nam Jaimes MD Emergency Provider Active S tart: May 26, 2025 Dr. Jonn Adams DO Admit Provider Active Start: May 26, 2025 Dr. Jonn Adams DO Other Provider Active Start: May 26, 2025 Dr. Lisset Saldivar DO Attending Provider Active Start: May 26, 2025 Dr. Lisset Saldivar DO Other Provider Active S tart: May 26, 2025 Team Status: Active Member Role/Relationship Status Dates Dr. Lisset Barrera DO Primary Care Provider Active Start: May 27, 2025 Dr. Nam Jaimes MD Emergency Provider Active S tart: May 27, 2025 Dr. Jonn Adams DO Admit Provider Active Start: May 27, 2025 Dr. Jonn Adams DO Other Provider Active Start: May 27, 2025 Dr. Lisset Saldivar DO Attending Provider Active Start: May 27, 2025 Dr. Lisset Saldivar DO Other Provider Active S tart: May 27, 2025 (unrecognized sect ion and content) No Status Records Found INFORMATION SOURCE (unrecogn ized section and content) DATE CREATED AUTHOR 05/27/2025 [facility] FOR RECORDS PERTAINING TO PATIENTS WHO [...] BE BASED ON THE PRIMARY CLINICAL RECORDS. [facility] [employer] provides no warranty or guarantee of the accuracy or completeness of information in this document.
--- OUTSIDE RECORDS SUMMARY | 2025-05-27 15:34 | XMS RPT_ITS | CCD ---
Author Organization [facility] CliniSyil Care Team Providers Care Mucking Machine Operator Name Role Phone Dr. Lisset Barrera Primary Care Provider Dr. Lisset Barrera Referring Provider Dr. Chance Montemayor Attending Provider [phone] Dr. Lele Denis Attending Provider Dr. Lisset Barrera Primary Care Provider Dr. Lisset Barrera Referring Provider Austin SILVERMAN, POND SCALER-C Blanca Attending Provider [phone] Dr. Lisset Barrera Primary Care Provider Dr. Lisset Barrera Referring Provider [phone] Chance Montemayor Attending Provider Dr. Lisset Barrera DO Primary Care Provider Dr. Regan Guzman MD Attending Provider Dr. Regan Guzman MD Referring Provider Dr. Lisset Barrera DO Referring Provider Noah SILVERMAN-CJanessa Attending Provider Dr. Steven Hurst DO Emergency Provider Dr. Steven Hurst DO Attending Provider [phone] Dr. Nam Jaimes MD Emergency Provider Dr. [...] Care Unavailable Holly, Lisset Primary Care Unavailable [place], Disha Referring Unavailable [place], Disha Attending Unavailable Holly, Lisset Primary Care [...] Care Unavailable Holly, Lisset Referring Unavailable Noah POND SCALER, Janessa Attending Unavailable Dr. Jonn Adams DO Other Provider Dr. Lisset Saldivar DO Attending Provider Dr. Saud Echavarria MD Attending Provider [phone] Dr. Lisset Saldivar DO Other Provider King Brandon MD Other Provider Unavailable Sherri CH, Dr. Miranda Other Provider Deanna Handy MD Other Provider Unavailable Dr. Sakina Le DO Other Provider Dr. Payton Wren MD Other Provider [phone] Rell CH, Dr. Hager Other Provider Donis [...] Provider Brittany CH, Dr. Melendez Other Provider [phone] Raulito CH, Dr. Gaviria Other Provider Unavailable Junior CH, Yousef Other Provider Unavailable Allergies Allergy Classification Reported Allergen(s) Allergy Type Date of Onset Reaction(s) Facility (8 sources) Sulfamethoxazole Drug Allergy 2 [facility] (8 sources) Trimethoprim Drug Allergy 2 [facility] (1 source) Sulfamethoxazole Drug Allergy 5 [facility]ository (1 source) Trimethoprim Drug Allergy 5 [facility] Medications Current Medications Medication Drug [...] (8 sources) Drug therapy finding; Translations: [Other buccaro (current) drug therapy] 01-02-2020 Episodic Other non-epithelial [...] 05-24-2025 CTA Head AND Neck W/ Contrast [facility] Imaging Services [address] [place] [address] [id number] CTA Head AND Neck W/ Contrast MR#: [id number] Acct: [id number] Name: LISSET FARMER Rep #: [id number] : 1950 M 75 From: Tre duke MD PCP: Dr. Lisset Barrera DO Status: ADM IN Study: CTA Head AND Neck W/ Contrast Date of Exam: Exam# [id number] Ordering Dr: Lisset Saldivar DO PROCEDURE: CTA [...] RIGHT Vertebral: Unremarkable. LEFT Vertebral: Unremarkable. Anatomy: [place] anatomy is normal. Aneurysm or [...] arteries. No significant stenosis seen. Reading Location: [place] [address] CC: Dr. Lisset Barrera DO; Dr. Lisset Saldivar DO Bakery Deliverer: Signed Normal [facility] Calculated very low density lipoprotein (VLDL) cholesterol measurementOrdered By: Lisset Saldivar on 05-24-2025 Calculated very low density lipoprotein (VLDL) cholesterol measurement 14 mg/dL 5-40 [facility] Electrocardiogram reportOrde red By: Saud Echavarria on 05-24-2025 EKG study [facility] Cardiovascular Services [address] [place] [address] 12 Lead EKG 05/23/25 0245 MR#: [id number] Acct: [id number] Name: LISSET FARMER Rep #:[id number] : 1950 75 From: Saud Echavarria [...] IS UNCONFIRMED Confirmed by SAUD ECHAVARRIA MD ([id number]), associate editor PEG AUGUSTIN ([id number]) on 05/24/2025 6:42:03 AM Referred By: Confirmed By: SAUD ECHAVARRIA MD 05/24/25 0642 Date _ Saud Echavarria MD CC: Dr. Jonn Adams, ; Dr. Lisset Barrera, ; Dr. Lisset Saldivar DO~ Signed [facility] Work Phone: EKG study [facility] [address] [place] [address] 12 Lead EKG 05/22/25 1752 MR#: [id number] Acct: [id number] Name: LISSET FARMER Rep #:[id number] : 1950 75 From: Saud Echavarria MD Attending Dr: Dr. Lisset Saldivar DO Status: ADM IN Ordering Dr: Nam Jaimes MD Date: 07/09 Location: [facility] Sex: M C Admitted: 05/22/25 Test [...] Abnormal ECG Confirmed by SAUD ECHAVARRIA MD ([id number]), associate editor PEG AUGUSTIN ([id number]) on 05/24/2025 6:35:47 AM Referred By: Confirmed By: SAUD ECHAVARRIA MD 07/10/25 0635 Date _ Saud Echavarria MD CC: Dr. Nam Jaimes MD; Dr. Lisset Barrera DO; Dr. Lisset Saldivar DO ~ Signed [facility] Work Phone: LDL calc ser/plasOrdered By: Lisset Saldivar on 05-24-2025 Cholesterol in LDL [Mass/Vol] 99 mg/dL [facility] Comment on above: Gzmscnmvxp=849-790 m g/dL & Higher Fexq=391 mg/dL or greater Lipid Profileon 05-24-2025 CHOL:HDL 3.[address] [facility] Comment on above: Performed By: #### L 499.0043 #### [facility] [address] [place], [address] (111) Cholesterol [Mass/Vol] 156 mg/dL Normal <=200 [facility] Comment on above: Result Comment: Chol esterol level, Desirable <200 mg/dL Borderline high cholesterol 200-239 mg/dL High cholesterol >=240 mg/dL Recommendations of the NCEP Adult Treatment Panel for the following risk-cutoff thresholds for the [place] population. Performed By: #### L 499.0043 #### [facility] [address] [place], [address] Cholesterol in HDL [Mass/Vol] 43 mg/dL Normal [facility] Comment on above: Result Comment: [place] onal Cholesterol Education Program (NCEP) guidelines: <40 mg/dL: Low HDL-cholesterol (major risk factor for CHD) >= 60 mg/dL: High HDL-cholesterol (negative risk factor for CHD) HDL-cholesterol is affected by a number of factors, e.g. smoking, exercise, hormones, sex and age. Performed By: #### L 499.0043 #### [facility] [address] [place], [address] Cholesterol in LDL [Mass/Vol] 99 mg/dL Normal [facility] Comment on above: Result Comment: Bord lqrbre=067-389 mg/dL Higher Ecwv=467 mg/dL or greater Performed By: #### L 499.0043 #### [facility] [address] [place], [place], [address] Cholesterol in VLDL [Mass/Vol] 14 mg/dL Normal 5-40 [facility] Comment on above: Performed By: #### L 499.0043 #### [facility] [address] [place], [address] Triglyceride [Mass/Vol] 70 mg/dL Normal [facility] Comment on above: Result Comment: The drugs N-Acetylcysteine and Metamizole may falsely depress this assay. Normal range: <150 mg/dL Borderline High: 150-199 mg/dL High: 200-499 mg/dL Very High: >500 mg/dL Performed By: #### L 499.0043 #### [facility] [address] [place], [address] MR/CON.PCM.NEon 05-24-2025 MR/CON.PCM.NE [facility] Medical Records Department [address] [place] [address] Consultation - Neurology 05/24/25 1253 MR#: [id number] Acct: [id number] Name: LISSET FARMER Rep #: [id number] : 1950 75 From: Khadra Cabezas MD PCP: Dr. Lisset Barrera, DO Status:ADM IN [facility] Assessment and Plan: Stroke Assessment/Plan LISSET FARMER, [...] feels at baseline, denies confusion currently. 130/97. [facility] Medical History Prostate cancer Elevated PSA [...] Source Te (more content not included)... Normal [facility] PSA Serial Monitoron 025 PSA, TOTAL 49.7 ng/mL Abnormal 0.0-4.0 [facility] Comment on above: Result Comment: Roch e ECLIA methodology. According to the [place] [employer], Serum PSA should decrease and [...] or absence of malignant disease. Performed at: [address] [id number] Lease Out Worker: Sean Emmanuel PhD, Phone: [phone] Performed By: #### L 499.0043 #### [facility] [address] [place], [address] Screening total cholesterol/ high density lipoprotein (HDL) cholesterol ratioOrdered By: Lisset Saldivar on 05-24-2025 Cholesterol.total/Choles terol in HDL [Mass ratio] 3.61 {ratio} [facility] Serum or plasma cholesterol in HDL measurement (mass/volume)Ordered By: Lisset Saldivar on 05-24-2025 Cholesterol in HDL [Mass/Vol] 43 mg/dL >40 [facility] Comment on above: National Cholesterol Education Program (NCEP) guidelines:<40 mg/dL: Low HDL-cholesterol (major risk factor for CHD)>= 60 mg/dL: High HDL-cholesterol (negative risk factor for CHD)HDL-cholesterol is affected by a number of factors, e.g. smoking, exercise, hormones, sex and age. Serum or plasma cholesterol measurement (mass/volume)Ordered By: Lisset Saldivar on 05-24-2025 Cholesterol [Mass/Vol] 156 mg/dL <201 [facility] Comment on above: Cholesterol level, D esirable <200 mg/dLBorderline high cholesterol 200-239 mg/dLHigh cholesterol >=240 mg/dLRecommendations of the NCEP Adult Treatment Panel for the following risk-cutoff thresholds for the [place] population. Triglycerides measurementOrd ered By: Lisset Saldivar on 05-24-2025 Triglyceride [Mass/Vol] 70 mg/dL <199 [facility] Comment on above: The drugs N-Acetylcy steine and Metamizole may falsely depress this assay. Normal range: <150 mg/dLBorderline High: 150-199 mg/dLHigh: 200-499 mg/dLVery High: >500 mg/dL 12 Lead EKGon 05-23-2025 12 Lead EKG [facility] Cardi[facility] Services [address] [place] [address] 12 Lead EKG 05/23/25 0245 MR#: [id number] Acct: [id number] Name: LISSET FARMER Rep #: [id number] : 1950 75 From: Saud Echavarria MD Attending Dr: Dr. Lisset Saldivar DO Status: A DM IN Ordering Dr: Jonn Adams DO Date: 05/23/25 Location: [facility] Sex: M C Admitted: 05/22/25 Test [...] IS UNCONFIRMED Confirmed by CHARY CH, SAUD ([id number]), associate editor PEG AUGUSTIN ([id number]) on 05/24/2025 6:42:03 AM Referred By: Confirmed By: SAUD ECHAVARRIA MD 05/24/25 0642 Date Saud Echavarria MD CC: Dr. Jonn Adams DO; Dr. Lisset Barrera DO; Dr. Lisset Saldivar DO Signed Normal [facility] Anion gap in Serum or Plasma Ordered By: Jonn Adams on 05-23-2025 Anion gap [Moles/Vol] 11 mmol/L - [facility] BUN/creatinine ratioOrdered By: Jonn Adams on 05-23-2025 Urea nitrogen/Creatinine [Mass ratio] 12.3 mg/mg - [facility] Basic Metabolic Profile (BMP )on 05-23-2025 BUN/CRE 12.3 RATIO Normal 10-20 [facility] Comment on above: Performed By: #### L 499.0043 #### [facility] [address] [place], [address] Calcium [Mass/Vol] 9.4 mg/dL Normal 7.6-11.0 [facility] Comment on above: Performed By: #### L 499.0043 #### [facility] [address] [place], [address] Chloride [Moles/Vol] 105 mmol/L Normal 98-108 [facility] Comment on above: Performed By: #### L 499.0043 #### [facility] [address] [place], [address] CO2 [Moles/Vol] 27.0 mmol/L Normal 21.0-32.0 [facility] Comment on above: Performed By: #### L 499.0043 #### [facility] [address] [place], [address] Creatinine [Mass/Vol] 1.16 mg/dL Normal 0.70-1.20 [facility] Comment on above: Performed By: #### L 499.0043 #### [facility] [address] [place], [address] ECRCL 67.07 ml/min Normal 50-250 [facility] Comment on above: Performed By: #### L 499.0043 #### [facility] [address] [place], [address] GAP 11 Normal 5-15 [facility] Comment on above: Performed By: #### L 499.0043 #### [facility] [address] [place], [address] GFR/1.73 sq M.predicted among non-blacks MDRD (S/P/Bld) [Vol rate/Area] 66 mL/min/{1.73_m2} Normal >60 [facility] Comment on above: Result Comment: mL/m in/1.73m2 CKD-EPI Creatinine Equation (2020) Performed By: #### L 499.0043 #### [facility] [address] [place], [address] Glucose [Mass/Vol] 111 mg/dL High 70-99 [facility] Comment on above: Performed By: #### L 499.0043 #### [facility] [address] [place], [address] Potassium [Moles/Vol] 3.8 mmol/L Normal 3.3-5.1 [facility] Comment on above: Performed By: #### L 499.0043 #### [facility] [address] [place], [address] Sodium [Moles/Vol] 142 mmol/L Normal 133-145 [facility] Comment on above: Performed By: #### L 499.0043 #### [facility] [address] [place], [address] Urea nitrogen [Mass/Vol] 14 mg/dL Normal 4-19 [facility] Comment on above: Performed By: #### L 499.0043 #### [facility] [address] [place], [address] Brain W/WO Contraston 2024 Brain W/WO Contrast [facility] Imaging Services [address] [place] [address] Brain W/WO Contrast MR#: [id number] Acct: [id number] Name: LISSET FARMER Rep #: [id number] : 1950 M 75 From: Otilio Zuniga MD PCP: Dr. Lisset Barrera DO Status: ADM IN Study: Brain W/WO Contrast Date of Exam: 05/23/25 Exam# [id number] Ordering Dr: Jonn Adams DO PROCEDURE: BRAIN [...] 4. Other findings as noted. Reading Location: [id number] CC: Dr. Jonn Adams, DO; Dr. Lisset Barrera DO Bakery Deliverer: Signed Normal [facility] CBC-Complete Blood Cnt No Di ffon 05-23-2025 Erythrocyte distribution width (RBC) [Ratio] 14.8 % High 11.6-14.6 [facility] Comment on above: Performed By: #### L 499.0043 #### [facility] [address] [place], [address] Hematocrit (Bld) [Volume fraction] 39.0 % Low 40-54 [facility] Comment on above: Performed By: #### L 499.0043 #### [facility] [address] [place], [address] Hemoglobin (Bld) [Mass/Vol] 12.6 g/dL Low 13.0-16.5 [facility] Comment on above: Performed By: #### L 499.0043 #### [facility] [address] [place], [address] MCH (RBC) [Entitic mass] 28.9 pg Normal 27.0-32.0 [facility] Comment on above: Performed By: #### L 499.0043 #### [facility] [address] [place], [address] MCHC (RBC) [Mass/Vol] 32.3 g/dL Normal 32-36 [facility] Comment on above: Performed By: #### L 499.0043 #### [facility] [address] [place], [address] MCV (RBC) [Entitic vol] 89.4 fL Normal 80-94 [facility] Comment on above: Performed By: #### L 499.0043 #### [facility] [address] [place], [address] Platelet mean volume (Bld) [Entitic vol] 11.0 fL Normal 6.2-12.0 [facility] Comment on above: Performed By: #### L 499.0043 #### [facility] [address] [place], [address] Platelets (Bld) [#/Vol] 193 10*3/uL Normal 150-450 [facility] Comment on above: Performed By: #### L 499.0043 #### [facility] [address] [place], [address] RBC (Bld) [#/Vol] 4.36 10*6/uL Low 4.6-6.2 [facility] Comment on above: Performed By: #### L 499.0043 #### [facility] [address] [place], [address] RDW SD 48.9 fl High 35.1-43.9 [facility] Comment on above: Performed By: #### L 499.0043 #### [facility] [address] [place], [address] WBC (Bld) [#/Vol] 5.7 10*3/uL Normal 4.4-11.0 [facility] Comment on above: Performed By: #### L 499.0043 #### [facility] [address] [place], [address] Carbon dioxide, total [Moles /volume] in Central venous bloodOrdered By: Jonn Adams on 05-23-2025 CO2 [Moles/Vol] 27.0 mmol/L 21.0-32.0 [facility] Chloride assayOrdered By: Denis Adams on 05-23-2025 Chloride [Moles/Vol] 105 mmol/L 98-108 [facility] Echocardiogram study reportO rdered By: Saud Echavarria on 05-23-[address] [facility] [address] [place] [address] Echo Complete 05/23/25 0311 MR#: [id number] Acct: [id number] Name: LISSET FARMER Rep #:[id number] : 1950 75 From: Saud Adams Attending Dr: Dr. Lisset Saldivar, Status: ADM IN Ordering Dr: Jonn Adams DO Da te: 05/22/25 Location: [facility] Sex: M C Admitted: 05/22/25 Reason [...] DO~ Date Dictated: 05/23/25310 Date Transcribed: 05/23/251846 Bakery Deliverer: Signed [facility] Work Phone: Erythrocyte distribution wid th ratioOrdered By: Jonn Adams on 05-23-2025 Erythrocyte distribution width (RBC) [Ratio] 14.8 % High 11.6-14.6 [facility] Erythrocyte distribution wid th standard deviationOrdered By: Jonn Adams on 05-23-2025 Erythrocyte distribution width (RBC) [Ratio] 48.9 fl High 35.1-43.9 [facility] Glomerular filtration rate ( GFR) estimation/1.73 sq m using serum, plasma, or whole bOrdered By: Jonn Adams on 05-23-2025 GFR/1.73 sq M.predicted among non-blacks MDRD (S/P/Bld) [Vol rate/Area] 66 mL/min/{1.73_m2} >60 [facility] Comment on above: mL/min/1.73m2 CKD-EP I Creatinine Equation (2020) Hematocrit Auto (Bld) [Volum e fraction]Ordered By: Jonn Adams on 05-23-2025 Hematocrit (Bld) [Volume fraction] 39.0 % Low 40-54 [facility] Hemoglobin measurementOrdere d By: Jonn Adams on 05-23-2025 Hemoglobin (Bld) [Mass/Vol] 12.6 g/dL Low 13.0-16.5 [facility] MCV (mean corpuscular volume ) determinationOrdered By: Jonn Adams on 05-23-2025 MCV (RBC) [Entitic vol] 89.4 fL 80-94 [facility] Magnetic resonance imaging r eportOrdered By: Otilio Zuniga on 05-23-2025 Study report [facility] Imaging Services [address] [place], [place] [id number] Brain W/WO Contrast MR#: [id number] Acct: [id number] Name: LISSET FARMER Rep #: [id number] : 1950 M 75 From: Jose Zuniga MD PCP: Dr. Lisset Barrera, Status: ADM IN Study:Brain W/WO Contrast Date of Exam: 05/23/25 Exam# [id number] Ordering Dr: Jonn Isabel DO PROCEDURE: BRAIN [...] 4. Other findings as noted. Reading Location: [id number] CC: Dr. Jonn Adams, DO; Dr. Lisset Barrera DO ~ Bakery Deliverer: Signed [facility] Work Phone: Mean corpuscular hemoglobin (MCH) determinationOrdered By: Jonn Adams on 05-23-2025 MCH (RBC) [Entitic mass] 28.9 pg 27.0-32.0 [facility] Mean corpuscular hemoglobin concentration (MCHC) determinationOrdered By: Jonn Adams on 05-23-2025 MCHC (RBC) [Mass/Vol] 32.3 g/dL 32-36 [facility] Mean platelet volume determi nationOrdered By: Jonn Adams on 05-23-2025 Platelet mean volume (Bld) [Entitic vol] 11.0 fL 6.2-12.0 [facility] No Panel InformationOrdered By: Jonn Adams on 05-23-2025 Prostate Specific Ag Serial Monitor Not Reportable [facility] Platelet countOrdered By: Denis Adams on 05-23-2025 Platelets (Bld) [#/Vol] 193 10*3/uL 150-450 [facility] Potassium measurement (mass/ volume)Ordered By: Jonn Adams on 05-23-2025 Potassium (Unsp spec) [Mass/Vol] 3.8 mmol/L 3.3-5.1 [facility] RBC Auto (Bld) [#/Vol]Ordere d By: Jonn Adams on 05-23-2025 RBC (Bld) [#/Vol] 4.36 10*6/uL Low 4.6-6.2 [facility] Serum creatinine measurement (mass/volume)Ordered By: Jonn Adams on 05-23-2025 Creatinine [Mass/Vol] 1.16 mg/dL 0.70-1.20 [facility] Serum glucose measurement (m ass/volume)Ordered By: Jonn Adams on 05-23-2025 Glucose [Mass/Vol] 111 mg/dL High 70-99 [facility] Serum or plasma calcium lakes[place]ia urement (mass/volume)Ordered By: Jonn Adams on 05-23-2025 Calcium [Mass/Vol] 9.4 mg/dL 7.6-11.0 [facility] Serum or plasma urea nitroge n measurement (mass/volume)Ordered By: Jonn Adams on 05-23-2025 Urea nitrogen [Mass/Vol] 14 mg/dL 4-19 [facility] Sodium levelOrdered By: Kamran bales Bryan on 05-23-2025 Sodium [Moles/Vol] 142 mmol/L 133-145 [facility] White blood cell (WBC) count Ordered By: Jonn Adams on 05-23-2025 WBC (Bld) [#/Vol] 5.7 10*3/uL 4.4-11.0 [facility] 12 Lead EKGon 05-22-2025 12 Lead EKG [facility] [address] [place] [address] 12 Lead EKG 05/22/25 1752 MR#: [id number] Acct: [id number] Name: LISSET FARMER Rep #: [id number] : 1950 75 From: Saud Echavarria MD Attending Dr: Dr. Lisset Saldiavr DO Status: A DM IN Ordering Dr: Nam Jaimes MD Date: 05/22/25 Location: [facility] Sex: M C Admitted: 05/22/25 Test [...] Abnormal ECG Confirmed by SAUD ECHAVARRIA MD ([id number]), associate editor PEG AUGUSTIN ([id number]) on 05/24/2025 6:35:47 AM Referred By: Confirmed By: SAUD ECHAVARRIA MD 05/24/25 0635 Date Saud Echavarria MD CC: Dr. Nam Jaimes MD; Dr. Lisset Barrera DO; Dr. Lisset Saldivar DO Signed Normal [facility] Abdomen/Pelvis W IV Cont ONL Yon 05-22-2025 Abdomen/Pelvis W IV Cont ONLY [facility] Imaging Services [address] [place], [place] [id number] Abdomen/Pelvis W IV Cont ONLY MR#: [id number] Acct: [id number] Name: LISSET FARMER Rep #: [id number] : 1950 M 75 From: Peewee meier MD PCP: Dr. Lisset Barrera DO Status: ADM IN Study: Abdomen/Pelvis W IV Cont ONLY Date of Exam: Exam# [id number] Ordering Dr: Jonn Adams DO PROCEDURE: ABDOMEN/PELVIS [...] consistent with a metastatic process. [facility] CC: Dr. Jonn Adams, DO; Dr. Lisset Barrera, DO Bakery Deliverer: Signed Normal [facility] Absolute lymphocyte countOrd ered By: Nam Jaimes on 05-22-2025 Lymphocytes Auto (Unsp spec) [#/Vol] 0.85 10*3/uL 0.83-4.51 [facility] Absolute neutrophil countOrd ered By: Nam Jaimes on 05-22-2025 Neutrophils (Bld) [#/Vol] 5.2 10*3/uL 2.0-7.7 [facility] Alcohol, Blood (Medical)-Ser umon 05-22-2025 SERUM ETOH < 10.1 Normal <=10.0 [facility] Comment on above: Result Comment: This test is for medical purposes only. The legal definition of intoxication varies according to local law. Performed By: #### L 503.7505, L100.0100, L300.3900, L501.9100, L505.5000, L500.4050 ####[facility] [id number] [facility]. [place], [place], [id number] Ammoniaon 05-22-2025 Ammonia (P) [Moles/Vol] 11.0 umol/L Low 16-60 [facility] Comment on above: Performed By: #### L 499.0043 #### [facility] [address] [facility]. [place], [place], [id number] Amphetamine detection with 1 000 ng/mL as cutoffOrdered By: Nam Jaimes on 05-22-2025 Amphetamines Screen method >1000 ng/mL Ql (U) Negative < 200 ng/mL [facility] Anion gap in Serum or Plasma Ordered By: Nam Jaimes on 05-22-2025 Anion gap [Moles/Vol] 12 mmol/L 5-15 [facility] Automated lymphocyte count a s percentage of total leukocytesOrdered By: Nam Jaimes on 05-22-2025 Lymphocytes/100 WBC Auto (Unsp spec) 12.8 % Low 19-41 [facility] BUN/creatinine ratioOrdered By: Nam Jaimes on 05-22-2025 Urea nitrogen/Creatinine [Mass ratio] 14.2 mg/mg 10-20 [facility] Basophil percentageOrdered B y: Nam Jaimes on 05-22-2025 Basophils/100 WBC (Bld) 0.5 % 0-1 [facility] Bilirubin Test strip Ql (U)O rdered By: Nam Jaimes on 05-22-2025 Bilirubin Ql (U) Negative Negative [facility] Bilirubin, totalOrdered By: Nam Jaimes on 05-22-2025 Bilirubin [Mass/Vol] 0.67 mg/dL 0.00-1.30 [facility] Brain/Head without Contrasto n 05-22-2025 Brain/Head without Contrast [facility] Services [address] [place], [place] [address] Brain/Head without Contrast MR#: [id number] Acct: [id number] Name: LISSET FARMER Rep #: [id number] : 1950 M 75 From: Nehemiah Petit MD PCP: Dr. Lisset Barrera, DO Status: REG ER Study: Brain/Head without Contrast Date of Exam: 07/09 Exam# [id number] Ordering Dr: Nam Jaimes MD PROCEDURE: BRAIN/HEAD [...] loss and chronic microangiopathic changes. Reading Location: [id number] CC: Dr. Nam Jaimes MD; Dr. Lisset Barrera DO Bakery Deliverer: Signed Normal [facility] CBC W/Diff, Automatedon 07 Absolute Lymph 0.85 X10 3/uL Normal 0.83-4.51 [facility] Comment on above: Performed By: #### L 503.7505, L100.0100, L300.3900, L501.9100, L505.5000, L500.4050 ####[facility] [address] [place], [address] Absolute Neut 5.2 X10 3/uL Normal 2.0-7.7 [facility] Comment on above: Performed By: #### L 503.7505, L100.0100, L300.3900, L501.9100, L505.5000, L500.4050 ####[facility] [address] [place], [address] Basophils/100 WBC (Bld) 0.5 % Normal 0-1 [facility] Comment on above: Performed By: #### L 503.7505, L100.0100, L300.3900, L501.9100, L505.5000, L500.4050 ####[facility] [address] [place], [address] Eosinophils/100 WBC (Bld) 0.6 % Normal 0-5 [facility] Comment on above: Performed By: #### L 503.7505, L100.0100, L300.3900, L501.9100, L505.5000, L500.4050 ####[facility] [address] [place], [address] Erythrocyte distribution width (RBC) [Ratio] 14.6 % Normal 11.6-14.6 [facility] Comment on above: Performed By: #### L 503.7505, L100.0100, L300.3900, L501.9100, L505.5000, L500.4050 ####[facility] [address], [address] Hematocrit (Bld) [Volume fraction] 39.7 % Low 40-54 [facility] Comment on above: Performed By: #### L 503.7505, L100.0100, L300.3900, L501.9100, L505.5000, L500.4050 ####[facility] [address], [address] Hemoglobin (Bld) [Mass/Vol] 13.0 g/dL Normal 13.0-16.5 [facility] Comment on above: Performed By: #### L 503.7505, L100.0100, L300.3900, L501.9100, L505.5000, L500.4050 ####[facility] [address], [address] IG% 0.300 Normal 0.0-0.9 [facility] Comment on above: Result Comment: IG% - Immature Granulocytes (promyelocytes, myelocytes and metamyelocytes) > 1% indicates that a LEFT SHIFT is Present. Performed By: #### L 503.7505, L100.0100, L300.3900, L501.9100, L505.5000, L500.4050 ####[facility] [address] [place], [address] Lymphocytes/100 WBC (Bld) 12.8 % Low 19-41 [facility] Comment on above: Performed By: #### L 503.7505, L100.0100, L300.3900, L501.9100, L505.5000, L500.4050 ####[facility] [address] [place], [address] MCH (RBC) [Entitic mass] 29.1 pg Normal 27.0-32.0 [facility] Comment on above: Performed By: #### L 503.7505, L100.0100, L300.3900, L501.9100, L505.5000, L500.4050 ####[facility] [address] [place], [address] MCHC (RBC) [Mass/Vol] 32.7 g/dL Normal 32-36 [facility] Comment on above: Performed By: #### L 503.7505, L100.0100, L300.3900, L501.9100, L505.5000, L500.4050 ####[facility] [address] [place], [address] MCV (RBC) [Entitic vol] 88.8 fL Normal 80-94 [facility] Comment on above: Performed By: #### L 503.7505, L100.0100, L300.3900, L501.9100, L505.5000, L500.4050 ####[facility] [address] [place], [address] Monocytes/100 WBC (Bld) 7.3 % Normal 0-10 [facility] Comment on above: Performed By: #### L 503.7505, L100.0100, L300.3900, L501.9100, L505.5000, L500.4050 ####[facility] [address] [place], [address] Neutrophils/100 WBC (Bld) 78.5 % High 47-70 [facility] Comment on above: Performed By: #### L 503.7505, L100.0100, L300.3900, L501.9100, L505.5000, L500.4050 ####[facility] [address] [place], [address] Nucleated RBC (Bld) [#/Vol] 0 10*3/uL Normal 0-5 [facility] Comment on above: Performed By: #### L 503.7505, L100.0100, L300.3900, L501.9100, L505.5000, L500.4050 ####[facility] [address] [place], [address] Platelet mean volume (Bld) [Entitic vol] 11.5 fL Normal 6.2-12.0 [facility] Comment on above: Performed By: #### L 503.7505, L100.0100, L300.3900, L501.9100, L505.5000, L500.4050 ####[facility] [address] [place], [address] Platelets (Bld) [#/Vol] 204 10*3/uL Normal 150-450 [facility] Comment on above: Performed By: #### L 503.7505, L100.0100, L300.3900, L501.9100, L505.5000, L500.4050 ####[facility] [address] [place], [address] RBC (Bld) [#/Vol] 4.47 10*6/uL Low 4.6-6.2 [facility] Comment on above: Performed By: #### L 503.7505, L100.0100, L300.3900, L501.9100, L505.5000, L500.4050 ####[facility] [address] [place], [address] RDW SD 47.7 fl High 35.1-43.9 [facility] Comment on above: Performed By: #### L 503.7505, L100.0100, L300.3900, L501.9100, L505.5000, L500.4050 ####[facility] [address] [place], [address] WBC (Bld) [#/Vol] 6.6 10*3/uL Normal 4.4-11.0 [facility] Comment on above: Performed By: #### L 503.7505, L100.0100, L300.3900, L501.9100, L505.5000, L500.4050 ####[facility] [address] [facility] [place], [address] Carbon dioxide, total [Moles /volume] in Central venous bloodOrdered By: Nam Jaimes on 05-22-2025 CO2 [Moles/Vol] 23.1 mmol/L 21.0-32.0 [facility] Chest PA and Lateralon 05-22 Chest PA and Lateral [facility] [address] [place] [address] Chest PA and Lateral MR#: [id number] Acct: [id number] Name: LISSET FARMER Rep #: [id number] : 1950 M 75 From: Nehemiah Petit MD PCP: Dr. Lisset Barrera, DO Status: REG ER Study: Chest PA and Lateral Date of Exam: 05/22/25 Exam# [id number] Ordering Dr: Nam Jaimes MD PROCEDURE: CHEST [...] pulmonary disease. No pleural effusions. Reading Location: [id number] CC: Dr. Nam Jaimes MD; Dr. Lisset Barrera DO Bakery Deliverer: Signed Normal [facility] Chloride assayOrdered By: Al Jaimes on 05-22-2025 Chloride [Moles/Vol] 107 mmol/L 98-108 [facility] Comprehensive Metabolic Prof ilon 05-22-2025 Albumin [Mass/Vol] 4.2 g/dL Normal 3.4-4.8 [facility] Comment on above: Performed By: #### L 503.7505, L100.0100, L300.3900, L501.9100, L505.5000, L500.4050 ####[facility] [address] [place], [address] Albumin/Globulin [Mass ratio] 1.2 {ratio} Normal 0.9-2.4 [facility] Comment on above: Performed By: #### L 503.7505, L100.0100, L300.3900, L501.9100, L505.5000, L500.4050 ####[facility] [address] [place], [address] ALK PHOS 77 U/L Normal 40-129 [facility] Comment on above: Performed By: #### L 503.7505, L100.0100, L300.3900, L501.9100, L505.5000, L500.4050 ####[facility] [address] [place], [address] ALT [Catalytic activity/Vol] 12 U/L Normal <=46 [facility] Comment on above: Performed By: #### L 503.7505, L100.0100, L300.3900, L501.9100, L505.5000, L500.4050 ####[facility] [address] [place], [address] AST [Catalytic activity/Vol] 18 U/L Normal <=37 [facility] Comment on above: Performed By: #### L 503.7505, L100.0100, L300.3900, L501.9100, L505.5000, L500.4050 ####[facility] [address] [place], [address] Bilirubin [Mass/Vol] 0.67 mg/dL Normal 0.00-1.30 [facility] Comment on above: Performed By: #### L 503.7505, L100.0100, L300.3900, L501.9100, L505.5000, L500.4050 ####[facility] [address] [place], [address] BUN/CRE 14.2 RATIO Normal 10-20 [facility] Comment on above: Performed By: #### L 503.7505, L100.0100, L300.3900, L501.9100, L505.5000, L500.4050 ####[facility] [address] [place], [address] Calcium [Mass/Vol] 9.6 mg/dL Normal 7.6-11.0 [facility] Comment on above: Performed By: #### L 503.7505, L100.0100, L300.3900, L501.9100, L505.5000, L500.4050 ####[facility] [address] [place], [address] Chloride [Moles/Vol] 107 mmol/L Normal 98-108 [facility] Comment on above: Performed By: #### L 503.7505, L100.0100, L300.3900, L501.9100, L505.5000, L500.4050 ####[facility] [address] [place], [address] CO2 [Moles/Vol] 23.1 mmol/L Normal 21.0-32.0 [facility] Comment on above: Performed By: #### L 503.7505, L100.0100, L300.3900, L501.9100, L505.5000, L500.4050 ####[facility] [address] [place], [address] Creatinine [Mass/Vol] 1.26 mg/dL High 0.70-1.20 [facility] Comment on above: Performed By: #### L 503.7505, L100.0100, L300.3900, L501.9100, L505.5000, L500.4050 ####[facility] [address] [place], [address] ECRCL 62.30 ml/min Normal 50-250 [facility] Comment on above: Performed By: #### L 503.7505, L100.0100, L300.3900, L501.9100, L505.5000, L500.4050 ####[facility] [address] [place], [address] GAP 12 Normal 5-15 [facility] Comment on above: Performed By: #### L 503.7505, L100.0100, L300.3900, L501.9100, L505.5000, L500.4050 ####[facility] [address] [place], [address] GFR/1.73 sq M.predicted among non-blacks MDRD (S/P/Bld) [Vol rate/Area] 59 mL/min/{1.73_m2} Low >60 [facility] Comment on above: Result Comment: mL/m in/1.73m2 CKD-EPI Creatinine Equation (2020) Performed By: #### L 503.7505, L100.0100, L300.3900, L501.9100, L505.5000, L500.4050 ####[facility] [address] [place], [address] Globulin (S) [Mass/Vol] 3.5 g/dL Normal 2.2-4.2 [facility] Comment on above: Performed By: #### L 503.7505, L100.0100, L300.3900, L501.9100, L505.5000, L500.4050 ####[facility] [address] [place], [address] Glucose [Mass/Vol] 118 mg/dL High 70-99 [facility] Comment on above: Performed By: #### L 503.7505, L100.0100, L300.3900, L501.9100, L505.5000, L500.4050 ####[facility] [address] [place], [address] Potassium [Moles/Vol] 3.8 mmol/L Normal 3.3-5.1 [facility] Comment on above: Performed By: #### L 503.7505, L100.0100, L300.3900, L501.9100, L505.5000, L500.4050 ####[facility] [address] [place], [address] Sodium [Moles/Vol] 143 mmol/L Normal 133-145 [facility] Comment on above: Performed By: #### L 503.7505, L100.0100, L300.3900, L501.9100, L505.5000, L500.4050 ####[facility] [address] [place], [address] T PROT 7.8 g/dL Normal 5.9-8.4 [facility] Comment on above: Performed By: #### L 503.7505, L100.0100, L300.3900, L501.9100, L505.5000, L500.4050 ####[facility] [address] [place], [address] Urea nitrogen [Mass/Vol] 18 mg/dL Normal 4-19 [facility] Comment on above: Performed By: #### L 503.7505, L100.0100, L300.3900, L501.9100, L505.5000, L500.4050 ####[facility] [address] [place], [address] Echo Completeon 05-22-[address] [facility] [address] [place] [address] Echo Complete 05/23/25 0311 MR#: [id number] Acct: [id number] Name: LISSET FARMER Rep #: [id number] : 1950 75 From: Saud Echavarria MD Attending Dr: Dr. Lisset Saldivar DO Status: A DM IN Ordering Dr: Jonn Adams DO Date: 05/22/25 Location: [facility] Sex: M C Admitted: 05/22/25 Reason [...] DO Date Dictated: 05/23/25310 Date Transcribed: 05/23/251846 Bakery Deliverer: Signed Normal [facility] Emergency Department Summary on 05-22-2025 Emergency Department Summary [facility] Medical Records Department [address] [place] [address] Emergency Department Summary 05/22/25 MR#: [id number] Acct: [id number] Name: LISSET FARMER Rep #: [id number] : 1950 75 From: Nam Jaimes MD PCP: Dr. Lisset Barrera DO Status:ADM IN Location: [address] History of Present Illness Chief Complaint: [...] 1-2+ pitting edema both lower extremities. 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 Normal dorsi plantarflexion. No drift. Neurologically [...] 98 94 (more content not included)... Normal [facility] Eosinophil percentageOrdered By: Nam Jaimes on 05-22-2025 Eosinophils/100 WBC (Bld) 0.6 % 0-5 [facility] Erythrocyte distribution wid th ratioOrdered By: Nam Jaimes on 05-22-2025 Erythrocyte distribution width (RBC) [Ratio] 14.6 % 11.6-14.6 [facility] Erythrocyte distribution wid th standard deviationOrdered By: Nam Jaimes on 05-22-2025 Erythrocyte distribution width (RBC) [Ratio] 47.7 fl High 35.1-43.9 [facility] Glomerular filtration rate ( GFR) estimation/1.73 sq m using serum, plasma, or whole bOrdered By: Nam Jaimes on 05-22-2025 GFR/1.73 sq M.predicted among non-blacks MDRD (S/P/Bld) [Vol rate/Area] 59 mL/min/{1.73_m2} Low >60 [facility] Comment on above: mL/min/1.73m2 CKD-EP I Creatinine Equation (2020) H AND P Exam - Hospitaliston 05-22-2025 H&P Exam - Hospitalist [facility] Medical Records Department [address] [place] [address] H P Exam - Hospitalist 05/22/251945 MR#: [id number] Acct: [id number] Name: LISSET FARMER Rep #: [id number] : 1950 75 From: Jonn Adams DO PCP: Dr. Lisset Barrera DO Status:ADM IN Location: [facility] [id number] HPI - General General Date of Admission: 05/22/25 Date of Service: 05/22/25 Chief Complaint: Altered mental status, A-fib with RVR HPI Narrative LISSET FARMER, is a 75 M who presented to [facility] on 05/22/2025 with altered mental status. [...] noted. Will be admitted for further management. [facility] Medical History Prostate cancer Elevated PSA [...] 147 H (more content not included)... Normal [facility] Hematocrit Auto (Bld) [Volum e fraction]Ordered By: Nam Jaimes on 05-22-2025 Hematocrit (Bld) [Volume fraction] 39.7 % Low 40-54 [facility] Hemoglobin A1con 05-22-2025 HbA1c (Bld) [Mass fraction] 6.2 % High <=5.6 [facility] Comment on above: Result Comment: Norm al < 5.7 % Prediabetic 5.7 - 6.4 % Diabetic >or= 6.5 % Please note range changes. Performed By: #### L 499.0043 #### [facility] [address] [place], [place], [address] Hemoglobin A1c percentageOrd ered By: Jonn Adams on 05-22-2025 HbA1c (Bld) [Mass fraction] 6.2 % High <5.7 [facility] Comment on above: Normal < 5.7 % Predi abetic 5.7 - 6.4 % Diabetic >or= 6.5 % Please note range changes. Hemoglobin measurementOrdere d By: Nam Jaimes on 05-22-2025 Hemoglobin (Bld) [Mass/Vol] 13.0 g/dL 13.0-16.5 [facility] Immature granulocytes/100 WB C Auto (Bld)Ordered By: Nam Jaimes on 05-22-2025 Immature granulocytes/100 WBC (Bld) 0.300 % 0.0-0.9 [facility] Comment on above: IG% - Immature Granu locytes (promyelocytes, myelocytes and metamyelocytes) > 1% indicates that a LEFT SHIFT is Present. International normalized rat io (INR) calculationOrdered By: Nam Jaimes on 05-22-2025 INR Coag (Bld) [Relative time] 1.2 {INR} [facility] Ketones Test strip Ql (U)Ord ered By: Nam Jaimes on 05-22-2025 Ketones Ql (U) 5 mg/dl High Negative [facility] L499.0042on 05-22-2025 Trop T High Sen 13 ng/L Normal <=22 [facility] Comment on above: Performed By: #### L 499.0042 ####[facility] [address] [place], [address] Trop T High Sen Normal <=22 [facility] Comment on above: Result Comment: DUPL ICATE ORDER Performed By: #### L 400.0001 #### [facility] [address] [place], [address] L499.0043on 05-22-2025 Trop T High Sen 12 ng/L Normal <=22 [facility] Comment on above: Performed By: #### L 499.0043 #### [facility] [address] [place], [address] L501.4021on 05-22-2025 Trop T High Sen 14 ng/L Normal <=22 [facility] Comment on above: Performed By: #### L 499.0043 #### [facility] [address] [place], [address] L503.7505on 05-22-2025 Natriuretic peptide B (Bld) [Mass/Vol] 4303 pg/mL High <=1800 [facility] Comment on above: Result Comment: Hear t Failure Unlikely: < 300 pg/mL Heart Failure Likely < 50 Years: > 450 pg/mL 50-75 Years: > 900 pg/mL >75 Years: > 1800 pg/mL Performed By: #### L 503.7505, L100.0100, L300.3900, L501.9100, L505.5000, L500.4050 ####[facility] [address], [address] Laboratory - Chemistry and C hemistry - challengeOrdered By: Nam Jaimes on 05-22-2025 AST [Catalytic activity/Vol] 18 U/L <38 [facility] MCV (mean corpuscular volume ) determinationOrdered By: Nam Jaimes on 05-22-2025 MCV (RBC) [Entitic vol] 88.8 fL 80-94 [facility] Magnesiumon 05-22-2025 Magnesium [Mass/Vol] 2.1 mg/dL Normal 1.5-2.2 [facility] Comment on above: Performed By: #### L 499.0043 #### [facility] [address] [place], [place], [address] Magnesium measurement (mass/ volume)Ordered By: Jonn Adams on 05-22-2025 Magnesium (Unsp spec) [Mass/Vol] 2.1 mg/dL 1.5-2.2 [facility] Mean corpuscular hemoglobin (MCH) determinationOrdered By: Nam Jaimes on 05-22-2025 MCH (RBC) [Entitic mass] 29.1 pg 27.0-32.0 [facility] Mean corpuscular hemoglobin concentration (MCHC) determinationOrdered By: Nam Jaimes on 05-22-2025 MCHC (RBC) [Mass/Vol] 32.7 g/dL 32-36 [facility] Mean platelet volume determi nationOrdered By: Nam Jaimes on 05-22-2025 Platelet mean volume (Bld) [Entitic vol] 11.5 fL 6.2-12.0 [facility] Microscopic analysis of urin e for red blood cells (RBC)Ordered By: Nam Jaimes on 05-22-2025 Microscopic analysis of urine for red blood cells (RBC) 0-5 SEEN /hpf 0-5 [facility] Monocyte percentageOrdered B y: Nam Jaimes on 05-22-2025 Monocytes/100 WBC (Bld) 7.3 % 0-10 [facility] Mucus LM Ql (Urine sed)Order ed By: Nam Jaimes on 05-22-2025 Mucus Ql (Urine sed) 0 SEEN /hpf [facility] Natriuretic peptide.B prohor darren N-Terminal [Mass/volume] in Serum or PlasmaOrdered By: Nam Jaimes on 05-22-2025 Natriuretic peptide.B prohormone N-Terminal [Mass/Vol] 4303 pg/mL High <1800 [facility] Comment on above: Heart Failure Unlike ly: < 300 pg/mLHeart Failure Likely< 50 Years: > 450 pg/mL50-75 Years: > 900 pg/mL>75 Years: > 1800 pg/mL Neutrophil percentageOrdered By: Nam Jaimes on 05-22-2025 Neutrophils/100 WBC (Bld) 78.5 % High 47-70 [facility] Nitrite Test strip Ql (U)Ord ered By: Nam Jaimes on 05-22-2025 Nitrite Ql (U) Negative Negative [facility] No Panel InformationOrdered By: Nam Jaimes on 05-22-2025 Urine Buprenorphine Qualitative Negative < 200 ng/mL [facility] Urine Oxycodone Screen Negative < 100 ng/mL [facility] Nucleated red blood cell per centageOrdered By: Nam Jaimes on 05-22-2025 Nucleated RBC/100 WBC (Bld) [Ratio] 0 % 0-5 [facility] Phosphoruson 05-22-2025 Phosphate [Mass/Vol] 2.9 mg/dL Normal 2.7-4.5 [facility] Comment on above: Performed By: #### L 499.0043 #### [facility] [address] [place], [address] Platelet countOrdered By: Al Jaimes on 05-22-2025 Platelets (Bld) [#/Vol] 204 10*3/uL 150-450 [facility] Potassium measurement (mass/ volume)Ordered By: Nam Jaimes on 05-22-2025 Potassium (Unsp spec) [Mass/Vol] 3.8 mmol/L 3.3-5.1 [facility] Protein Test strip Ql (U)Ord ered By: Nam Jaimes on 05-22-2025 Protein Ql (U) 15 mg/dl High Negative [facility] Prothrombin Time w/INRon INR Coag (PPP) [Relative time] 1.2 {INR} Normal [facility] Comment on above: Performed By: #### L 503.7505, L100.0100, L300.3900, L501.9100, L505.5000, L500.4050 ####[facility] [address] [place], [address] PT Coag (PPP) [Time] 15.3 s High 11.7-14.9 [facility] Comment on above: Performed By: #### L 503.7505, L100.0100, L300.3900, L501.9100, L505.5000, L500.4050 ####[facility] [address] [place], [address] Prothrombin timeOrdered By: Nam Jaimes on 05-22-2025 PT Coag (PPP) [Time] 15.3 s High 11.7-14.9 [facility] Quantitative urine opiates m easurementOrdered By: Nam Jaimes on 05-22-2025 Opiates Ql (U) Negative < 300 ng/mL [facility] RBC Auto (Bld) [#/Vol]Ordere d By: Nam Jaimes on 05-22-2025 RBC (Bld) [#/Vol] 4.47 10*6/uL Low 4.6-6.2 [facility] Screening urine fentanyl tati surementOrdered By: Nam Jaimes on 05-22-2025 fentaNYL Screen Ql (U) Negative [facility] Serum creatinine measurement (mass/volume)Ordered By: Nam Jaimes on 05-22-2025 Creatinine [Mass/Vol] 1.26 mg/dL High 0.70-1.20 [facility] Serum globulin measurementOr dered By: Nam Jaimes on 05-22-2025 Globulin (S) [Mass/Vol] 3.5 g/dL 2.2-4.2 [facility] Serum glucose measurement (m ass/volume)Ordered By: Nam Jaimes on 05-22-2025 Glucose [Mass/Vol] 118 mg/dL High 70-99 [facility] Serum or plasma alanine forrester otransferase (ALT) measurementOrdered By: Nam Jaimes on 05-22-2025 ALT [Catalytic activity/Vol] 12 U/L <47 [facility] Serum or plasma albumin lakeshia urement (mass/volume)Ordered By: Nam Jaimes on 05-22-2025 Albumin [Mass/Vol] 4.2 g/dL 3.4-4.8 [facility] Serum or plasma albumin/glob ulin mass ratioOrdered By: Nam Jaimes on 05-22-2025 Albumin/Globulin [Mass ratio] 1.2 {ratio} 0.9-2.4 [facility] Serum or plasma alkaline jerrell sphatase measurementOrdered By: Nam Jaimes on 05-22-2025 ALP [Catalytic activity/Vol] 77 U/L 40-129 [facility] Serum or plasma calcium lakeshia urement (mass/volume)Ordered By: Nam Jaimes on 05-22-2025 Calcium [Mass/Vol] 9.6 mg/dL 7.6-11.0 [facility] Serum or plasma ethanol lakeshia urement (mass/volume)Ordered By: Nam Jaimes on 05-22-2025 Ethanol [Mass/Vol] mg/dL <10.1 [facility] Comment on above: This test is for med ical purposes only. The legal definition of intoxication varies according to local law. Serum or plasma urea nitroge n measurement (mass/volume)Ordered By: Nam Jaimes on 05-22-2025 Urea nitrogen [Mass/Vol] 18 mg/dL 4-19 [facility] Sodium levelOrdered By: Nam Jaimes on 05-22-2025 Sodium [Moles/Vol] 143 mmol/L 133-145 [facility] Squamous epithelial cells de tection in urine sediment by light microscopyOrdered By: Nam Jaimes on 05-22-2025 Epithelial cells.squamous LM Ql (Urine sed) 0 SEEN /hpf 0-5 [facility] Total proteinOrdered By: Kaushik Jaimes on 05-22-2025 Protein [Mass/Vol] 7.8 g/dL 5.9-8.4 [facility] Troponin T.cardiac [Mass/vol ume] in Serum or Plasma by High sensitivity methodOrdered By: Nam Jaimes on 05-22-2025 Troponin T.cardiac High sensitivity method [Mass/Vol] 12 ng/L <22 [facility] Troponin T.cardiac High sensitivity method [Mass/Vol] 13 ng/L <22 [facility] Troponin T.cardiac High sensitivity method [Mass/Vol] 14 ng/L <22 [facility] Comment on above: Delta: 12 on 5-1023 Urinalysis, Completeon 05-22 RBC 0-5 SEEN Normal 0-5 [facility] Comment on above: Order Comment: CLEAN CATCH Performed By: #### L 400.0001 #### [facility] [address] [place], [place], [id number] WBC 0-5 SEEN Normal 0-5 [facility] Comment on above: Order Comment: CLEAN CATCH Performed By: #### L 400.0001 #### [facility] [address] [place], [place], [id number] BACTERIA 0 SEEN Normal None Seen [facility] Comment on above: Order Comment: CLEAN CATCH Performed By: #### L 400.0001 #### [facility] [address] [place], [place], [id number] EPI,SQUAMOUS 0 SEEN Normal 0-5 [facility] Comment on above: Order Comment: CLEAN CATCH Performed By: #### L 400.0001 #### [facility] [address] [place], [address] Mucus Ql (Urine sed) 0 SEEN Normal [facility] Comment on above: Order Comment: CLEAN CATCH Performed By: #### L 400.0001 #### [facility] [address] [place] [address] Urine Drug Screen (VISTA)on 05-22-2025 AMPHETAMINES Negative Normal <1000 ng/mL [facility] Comment on above: Performed By: #### L 503.7505, L100.0100, L300.3900, L501.9100, L505.5000, L500.4050 ####[facility] [address] [place] [address] BARBITIURATES Negative Normal < 200 ng/mL [facility] Comment on above: Performed By: #### L 503.7505, L100.0100, L300.3900, L501.9100, L505.5000, L500.4050 ####[facility] [address] [place], [place], [phone] BENZODIAZIPINE Negative Normal < 200 ng/mL [facility] Comment on above: Performed By: #### L 503.7505, L100.0100, L300.3900, L501.9100, L505.5000, L500.4050 ####[facility] [address] [place] [address] BUP Ur Drug Scr Negative Normal < 200 ng/mL [facility] Comment on above: Performed By: #### L 503.7505, L100.0100, L300.3900, L501.9100, L505.5000, L500.4050 ####[facility] [address] [place] [id number] COCAINE Negative Normal < 300 ng/mL [facility] Comment on above: Performed By: #### L 503.7505, L100.0100, L300.3900, L501.9100, L505.5000, L500.4050 ####[facility] [address] [place], [address] [facility] Comment on above: Performed By: #### L 503.7505, L100.0100, L300.3900, L501.9100, L505.5000, L500.4050 ####[facility] [address] [place], [place], [phone] METHADONE Negative Normal < 300 ng/mL [facility] Comment on above: Performed By: #### L 503.7505, L100.0100, L300.3900, L501.9100, L505.5000, L500.4050 ####[facility] [address] [place], [place], [phone] OPIATES Negative Normal < 300 ng/mL [facility] Comment on above: Performed By: #### L 503.7505, L100.0100, L300.3900, L501.9100, L505.5000, L500.4050 ####[facility] [address] [place] [address] OXYCODONE Negative Normal < 100 ng/mL [facility] Comment on above: Performed By: #### L 503.7505, L100.0100, L300.3900, L501.9100, L505.5000, L500.4050 ####[facility] [address] [place], [place], [phone] PCP Negative Normal < 25 ng/mL [facility] Comment on above: Performed By: #### L 503.7505, L100.0100, L300.3900, L501.9100, L505.5000, L500.4050 ####[facility] [address] [place], [address] THC Negative Normal < 50 ng/mL [facility] Comment on above: Performed By: #### L 503.7505, L100.0100, L300.3900, L501.9100, L505.5000, L500.4050 ####[facility] [address] [place], [address] Urine benzodiazepine levelOr dered By: Nam Jaimes on 05-22-2025 Benzodiazepines Ql (U) Negative < 200 ng/mL [facility] Urine clarityOrdered By: Kaushik Jaimes on 05-22-2025 Clarity (U) Clear Clear [facility] Urine cocaine levelOrdered B y: Nam Jaimes on 05-22-2025 Cocaine Ql (U) Negative < 300 ng/mL [facility] Urine color determinationOrd ered By: Nam Jaimes on 05-22-2025 Color (U) Yellow Yellow [facility] Urine wtvvw-8-awiyibuaxmrspa abinol (THC) measurementOrdered By: Nam Jaimes on 05-22-2025 Cannabinoids Screen Ql (U) Negative < 50 ng/mL [facility] Urine glucose detectionOrder ed By: Nam Jaimes on 05-22-2025 Glucose Ql (U) Normal mg/dl Normal [facility] Urine leukocyte esterase det ection by dipstickOrdered By: Nam Jaimes on 05-22-2025 Leukocyte esterase Test strip Ql (U) Negative Negative [facility] Urine pHOrdered By: Nam Martínez ghvalentino on 05-22-2025 pH (U) 7.0 [pH] 5.0 - 8.0 [facility] Urine phencyclidine (PCP) de tectionOrdered By: Nam Jaimes on 05-22-2025 Phencyclidine Ql (U) Negative < 25 ng/mL [facility] Urine sediment bacteria coun t by microscopy (number/high power field)Ordered By: Nam Jaimes on 05-22-2025 Bacteria LM.HPF (Urine sed) [#/Area] 0 /[HPF] None Seen [facility] Urine specific gravity measu rementOrdered By: Nam Jaimes on 05-22-2025 Specific gravity (U) [Rel density] 1.010 1.002-1.030 [facility] Urine urobilinogen measureme ntOrdered By: Nam Jaimes on 05-22-2025 Urobilinogen Ql (U) Normal mg/dl Normal [facility] Venous blood ammonia measure mentOrdered By: Jonn Adams on 05-22-2025 Ammonia (P) [Moles/Vol] 11.0 umol/L Low 16-60 [facility] White blood cell (WBC) count Ordered By: Nam Jaimes on 05-22-2025 WBC (Bld) [#/Vol] 6.6 10*3/uL 4.4-11.0 [facility] White blood cell countOrdere d By: Nam Jaimes on 05-22-2025 White blood cell count 0-5 SEEN /hpf 0-5 [facility] Absolute lymphocyte countOrd ered By: Steven Hurst on 05-09-2025 Lymphocytes Auto (Unsp spec) [#/Vol] 1.02 10*3/uL 0.83-4.51 [facility] Absolute neutrophil countOrd ered By: Steven Hurst on 05-09-2025 Neutrophils (Bld) [#/Vol] 4.6 10*3/uL 2.0-7.7 [facility] Anion gap in Serum or Plasma Ordered By: Steven Hurst on 05-09-2025 Anion gap [Moles/Vol] 9 mmol/L 5-15 [facility] Automated lymphocyte count a s percentage of total leukocytesOrdered By: Steven Hurst on 05-09-2025 Lymphocytes/100 WBC Auto (Unsp spec) 16.0 % Low 19-41 [facility] BUN/creatinine ratioOrdered By: Steven Hurst on 05-09-2025 Urea nitrogen/Creatinine [Mass ratio] 14.8 mg/mg 10-20 [facility] Basic Metabolic Profile (BMP )on 05-09-2025 BUN/CRE 14.8 RATIO Normal - [facility] Comment on above: Performed By: #### L 400.0001 #### [facility] [address] [place], [address] Calcium [Mass/Vol] 9.5 mg/dL Normal 7.6-11.0 [facility] Comment on above: Performed By: #### L 400.0001 #### [facility] [address] [place], [address] Chloride [Moles/Vol] 105 mmol/L Normal 98-108 [facility] Comment on above: Performed By: #### L 400.0001 #### [facility] [address] [place], [address] CO2 [Moles/Vol] 26.9 mmol/L Normal 21.0-32.0 [facility] Comment on above: Performed By: #### L 400.0001 #### [facility] [address] [place], [address] Creatinine [Mass/Vol] 1.26 mg/dL High 0.70-1.20 [facility] Comment on above: Performed By: #### L 400.0001 #### [facility] [address] [place], [address] ECRCL 63.12 ml/min Normal 50-250 [facility] Comment on above: Performed By: #### L 400.0001 #### [facility] [address] [place], [address] GAP 9 Normal 5-15 [facility] Comment on above: Performed By: #### L 400.0001 #### [facility] [address] [place], [address] GFR/1.73 sq M.predicted among non-blacks MDRD (S/P/Bld) [Vol rate/Area] 59 mL/min/{1.73_m2} Low >60 [facility] Comment on above: Result Comment: mL/m in/1.73m2 CKD-EPI Creatinine Equation (2020) Performed By: #### L 400.0001 #### [facility] [address] [place], [address] Glucose [Mass/Vol] 110 mg/dL High 70-99 [facility] Comment on above: Performed By: #### L 400.0001 #### [facility] [address] [place], [address] Potassium [Moles/Vol] 4.4 mmol/L Normal 3.3-5.1 [facility] Comment on above: Performed By: #### L 400.0001 #### [facility] [address] [place], [address] Sodium [Moles/Vol] 141 mmol/L Normal 133-145 [facility] Comment on above: Performed By: #### L 400.0001 #### [facility] [address] [place], [address] Urea nitrogen [Mass/Vol] 19 mg/dL Normal 4-19 [facility] Comment on above: Performed By: #### L 400.0001 #### [facility] [address] [place], [address] Basophil percentageOrdered B y: Stevenivy Hurst on 05-09-2025 Basophils/100 WBC (Bld) 0.9 % 0-1 [facility] CBC W/Diff, Automatedon 04-16 Absolute Lymph 1.02 X10 3/uL Normal 0.83-4.51 [facility] Comment on above: Performed By: #### L 400.0001 #### [facility] [address] [place], [address] Absolute Neut 4.6 X10 3/uL Normal 2.0-7.7 [facility] Comment on above: Performed By: #### L 400.0001 #### [facility] [address] [place], [address] Basophils/100 WBC (Bld) 0.9 % Normal 0-1 [facility] Comment on above: Performed By: #### L 400.0001 #### [facility] [address] [place], [address] Eosinophils/100 WBC (Bld) 2.8 % Normal 0-5 [facility] Comment on above: Performed By: #### L 400.0001 #### [facility] [address] [place], [address] Erythrocyte distribution width (RBC) [Ratio] 14.6 % Normal 11.6-14.6 [facility] Comment on above: Performed By: #### L 400.0001 #### [facility] [address] [place], [address] Hematocrit (Bld) [Volume fraction] 38.7 % Low 40-54 [facility] Comment on above: Performed By: #### L 400.0001 #### [facility] [address] [place], [address] Hemoglobin (Bld) [Mass/Vol] 12.5 g/dL Low 13.0-16.5 [facility] Comment on above: Performed By: #### L 400.0001 #### [facility] [address] [place], [address] IG% 0.300 Normal 0.0-0.9 [facility] Comment on above: Result Comment: IG% - Immature Granulocytes (promyelocytes, myelocytes and metamyelocytes) > 1% indicates that a LEFT SHIFT is Present. Performed By: #### L 400.0001 #### [facility] [address] [place], [address] Lymphocytes/100 WBC (Bld) 16.0 % Low 19-41 [facility] Comment on above: Performed By: #### L 400.0001 #### [facility] [address] [place], [address] MCH (RBC) [Entitic mass] 28.9 pg Normal 27.0-32.0 [facility] Comment on above: Performed By: #### L 400.0001 #### [facility] [address] [place], [address] MCHC (RBC) [Mass/Vol] 32.3 g/dL Normal 32-36 [facility] Comment on above: Performed By: #### L 400.0001 #### [facility] [address] [place], [address] MCV (RBC) [Entitic vol] 89.6 fL Normal 80-94 [facility] Comment on above: Performed By: #### L 400.0001 #### [facility] [address] [place], [address] Monocytes/100 WBC (Bld) 8.2 % Normal 0-10 [facility] Comment on above: Performed By: #### L 400.0001 #### [facility] [address] [place], [address] Neutrophils/100 WBC (Bld) 71.8 % High 47-70 [facility] Comment on above: Performed By: #### L 400.0001 #### [facility] [address] [place], [address] Nucleated RBC (Bld) [#/Vol] 0 10*3/uL Normal 0-5 [facility] Comment on above: Performed By: #### L 400.0001 #### [facility] [address] [place], [address] Platelet mean volume (Bld) [Entitic vol] 10.6 fL Normal 6.2-12.0 [facility] Comment on above: Performed By: #### L 400.0001 #### [facility] [address] [place], [address] Platelets (Bld) [#/Vol] 186 10*3/uL Normal 150-450 [facility] Comment on above: Performed By: #### L 400.0001 #### [facility] [address] [place], [address] RBC (Bld) [#/Vol] 4.32 10*6/uL Low 4.6-6.2 [facility] Comment on above: Performed By: #### L 400.0001 #### [facility] [address] [place], [address] RDW SD 47.8 fl High 35.1-43.9 [facility] Comment on above: Performed By: #### L 400.0001 #### [facility] [address] [place], [address] WBC (Bld) [#/Vol] 6.4 10*3/uL Normal 4.4-11.0 [facility] Comment on above: Performed By: #### L 400.0001 #### [facility] [address] [place], [place], [id number] Carbon dioxide, total [Moles /volume] in Central venous bloodOrdered By: Steven Hurst on 05-09-2025 CO2 [Moles/Vol] 26.9 mmol/L 21.0-32.0 [facility] Chest 1 View (Portable)on Chest 1 View (Portable) [facility] Imaging Services [address] [facility] [address] [place], [place] [address] Chest 1 View (Portable) MR#: [id number] Acct: [id number] Name: LISSET FARMER Rep #: [id number] : 1950 M 75 From: Rodríguez Adams PCP: Dr. Lisset Barrera DO Status: PRE ER Study: Chest 1 View (Portable) Date of Exam: 05/09/25 Exam# [id number] Ordering Dr: Steven Hurst DO PROCEDURE: CHEST [...] acute osseous process is seen. Reading Location: [place] [address] CC: Dr. Lisset Barrera DO; Dr. Steven Hurst DO Bakery Deliverer: Signed Normal [facility] Chloride assayOrdered By: Brett Hurst on 05-09-2025 Chloride [Moles/Vol] 105 mmol/L 98-108 [facility] Emergency Department Summary on 05-09-2025 Emergency Department Summary [facility] Medical Records Department [address] [place] [address] Emergency Department Summary 05/09/25 MR#: [id number] Acct: [id number] Name: LISSET FARMER Rep #: [id number] : 1950 75 From: Steven Hurst DO [...] no complaints at this point in time. [facility] Medical History Prostate cancer Elevated PSA Kidney [...] She states (more content not included)... Normal [facility] Eosinophil percentageOrdered By: Steven Hurst on 05-09-2025 Eosinophils/100 WBC (Bld) 2.8 % 0-5 [facility] Erythrocyte distribution wid th ratioOrdered By: Steven Hurst on 05-09-2025 Erythrocyte distribution width (RBC) [Ratio] 14.6 % 11.6-14.6 [facility] Erythrocyte distribution wid th standard deviationOrdered By: Steven Hurst on 05-09-2025 Erythrocyte distribution width (RBC) [Ratio] 47.8 fl High 35.1-43.9 [facility] Free T3on 05-09-2025 Free T3 [Mass/Vol] 2.2 pg/mL Normal 2.18-3.98 [facility] Comment on above: Performed By: #### L 400.0001 #### [facility] [address] [place], [address] Free M4Xapthzo By: Steven holguin on 05-09-2025 Free T3 [Mass/Vol] 2.2 pg/mL 2.18-3.98 [facility] Glomerular filtration rate ( GFR) estimation/1.73 sq m using serum, plasma, or whole bOrdered By: Steven Hurst on 05-09-2025 GFR/1.73 sq M.predicted among non-blacks MDRD (S/P/Bld) [Vol rate/Area] 59 mL/min/{1.73_m2} Low >60 [facility] Comment on above: mL/min/1.73m2 CKD-EP I Creatinine Equation (2020) Hematocrit Auto (Bld) [Volum e fraction]Ordered By: Steven Hurst on 05-09-2025 Hematocrit (Bld) [Volume fraction] 38.7 % Low 40-54 [facility] Hemoglobin measurementOrdere d By: Steven Hurst on 05-09-2025 Hemoglobin (Bld) [Mass/Vol] 12.5 g/dL Low 13.0-16.5 [facility] Immature granulocytes/100 WB C Auto (Bld)Ordered By: Steven Hurst on 05-09-2025 Immature granulocytes/100 WBC (Bld) 0.300 % 0.0-0.9 [facility] Comment on above: IG% - Immature Granu locytes (promyelocytes, myelocytes and metamyelocytes) > 1% indicates that a LEFT SHIFT is Present. L499.0042on 05-09-2025 Trop T High Sen 10 ng/L Normal <=22 [facility] Comment on above: Performed By: #### L 499.0042 ####[facility] [address] [facility] [address] L499.0043on 05-09-2025 Trop T High Sen Normal <=22 [facility] Comment on above: Result Comment: PT D ISCHARGED Performed By: #### L 499.0043 #### [facility] [address] [facility] [address] L501.4021on 05-09-2025 Trop T High Sen 12 ng/L Normal <=22 [facility] Comment on above: Performed By: #### L 400.0001 #### [facility] [address] [facility] [place] [id number] MCV (mean corpuscular volume ) determinationOrdered By: Steven Hurst on 05-09-2025 MCV (RBC) [Entitic vol] 89.6 fL 80-94 [facility] Mean corpuscular hemoglobin (MCH) determinationOrdered By: Steven Hurst on 05-09-2025 MCH (RBC) [Entitic mass] 28.9 pg 27.0-32.0 [facility] Mean corpuscular hemoglobin concentration (MCHC) determinationOrdered By: Steven Hurst on 05-09-2025 MCHC (RBC) [Mass/Vol] 32.3 g/dL 32-36 [facility] Mean platelet volume determi nationOrdered By: Steven Hurst on 05-09-2025 Platelet mean volume (Bld) [Entitic vol] 10.6 fL 6.2-12.0 [facility] Monocyte percentageOrdered B y: Steven Hurst on 05-09-2025 Monocytes/100 WBC (Bld) 8.2 % 0-10 [facility] Neutrophil percentageOrdered By: Steven Hurst on 05-09-2025 Neutrophils/100 WBC (Bld) 71.8 % High 47-70 [facility] Nucleated red blood cell per centageOrdered By: Steven Hurst on 05-09-2025 Nucleated RBC/100 WBC (Bld) [Ratio] 0 % 0-5 [facility] Platelet countOrdered By: Brett Hurst on 05-09-2025 Platelets (Bld) [#/Vol] 186 10*3/uL 150-450 [facility] Potassium measurement (mass/ volume)Ordered By: Steven Hurst on 05-09-2025 Potassium (Unsp spec) [Mass/Vol] 4.4 mmol/L 3.3-5.1 [facility] Pulmonary Visit Reporton Pulmonary Visit Report [facility] [place] [address] [place], [place] [address] OFFICE VISIT Date of Service: 05/09/25 MR#: [id number] Acct: [id number] Name: LISSET FARMER Rep #: [id number] : 1950 Provider: BINA Zamora Age/Sex: 75/M Location: [facility] Status: Signed Assessment and Plan Assessment and [...] for evaluation. I then called over to [facility] ED and gave a report to [...] Additional Comments: This note was generated with [employer] dictation software. It may contain incorrect words, [...] 1 Y FU Chief Complaint: port removal Sulfur Chloride Operator Required: No DME Vendor: [employer] Accompanied by: [...] @ 10 (more content not included)... Normal [facility] RBC Auto (Bld) [#/Vol]Ordere d By: Steven Hurst on 05-09-2025 RBC (Bld) [#/Vol] 4.32 10*6/uL Low 4.6-6.2 [facility] Serum creatinine measurement (mass/volume)Ordered By: Steven Hurst on 05-09-2025 Creatinine [Mass/Vol] 1.26 mg/dL High 0.70-1.20 [facility] Serum glucose measurement (m ass/volume)Ordered By: Steven Hurst on 05-09-2025 Glucose [Mass/Vol] 110 mg/dL High 70-99 [facility] Serum or plasma calcium lakeshia urement (mass/volume)Ordered By: Steven Hurst on 05-09-2025 Calcium [Mass/Vol] 9.5 mg/dL 7.6-11.0 [facility] Serum or plasma urea nitroge n measurement (mass/volume)Ordered By: Steven Hurst on 05-09-2025 Urea nitrogen [Mass/Vol] 19 mg/dL 4-19 [facility] Sodium levelOrdered By: Willis Hurst on 05-09-2025 Sodium [Moles/Vol] 141 mmol/L 133-145 [facility] T4 Free Directon 05-09-2025 T4 FREE DIRECT 1.10 ng/dL Normal 0.76-1.46 [facility] Comment on above: Performed By: #### L 501.90795, L506.0400, L501.9520 ####[facility] [address] [place], [place], [id number] T4 freeOrdered By: Steven holguin on 05-09-2025 Free T4 [Mass/Vol] 1.10 ng/dL 0.76-1.46 [facility] TSH DL <= 0.005 mIU/L QnOrde red By: Steven Hurst on 05-09-2025 TSH Qn 0.829 uIU/mL 0.300-4.200 [facility] Thyroid Stim Hormone (TSH)on 05-09-2025 TSH 0.829 uIU/mL Normal 0.300-4.200 [facility] Comment on above: Performed By: #### L 400.0001 #### [facility] [address] [place], [place], [id number] Troponin T.cardiac [Mass/vol ume] in Serum or Plasma by High sensitivity methodOrdered By: Steven Hurst on 05-09-2025 Troponin T.cardiac High sensitivity method [Mass/Vol] 10 ng/L <22 [facility] Troponin T.cardiac High sensitivity method [Mass/Vol] 12 ng/L <22 [facility] White blood cell (WBC) count Ordered By: Steven Hurst on 05-09-2025 WBC (Bld) [#/Vol] 6.4 10*3/uL 4.4-11.0 [facility] PSA,Total- [employer] - PSA, DIAGNOSTIC 35.00 ng/mL High 0.00-4.00 [facility] Comment on above: Result Comment: This test was performed using the [employer] tPSA method. Measured values of a patient??sample can vary depending on the testing procedure used. PSA values determined on patient samples by different testing procedures cannot be used interchangeably. If there is a change in PSA assays while monitoring therapy, sequential testing should be performed to confirm baseline values. Performed By: #### L 501.9940 #### [facility] [address] [place], [place], [id number] PSA,Total- [employer] - PSA, DIAGNOSTIC 19.60 ng/mL High 0.0-4.0 [facility] Comment on above: Result Comment: This test was performed using the TPSA assay method for the [employer] system. Values obtained with different assay methods cannot be used interchangably. When changing PSA assays in the course of monitoring a patient, additional sequential testing should be carried out to confirm baseline values. Performed By: #### L 501.9940 #### [facility] [address] [place], [address] Surgery Visit Reporton 08-[address] [facility] [address] [place] [address] OFFICE VISIT Date of Service: 08/31/24 MR#: [id number] Acct: [id number] Name: LISSET FARMER Rep #: [id number] : 1950 Provider: Dr. Kaiser alexander MD Age/Sex: 74/M Location: [facility] Status: Signed Intake Vital Signs 08/03/24 14:31 Height 5 ft 11 in Intake Visit Reasons: PORT REMOVAL Chief Complaint: port removal Sulfur Chloride Operator Required: No Is patient in pain?: No [...] the subcut (more content not included)... Normal [facility] CBC W/Diff, Automatedon 07-16 Absolute Lymph 0.96 X10 3/uL Normal 0.83-4.51 [facility] Comment on above: Order Comment: CLEAN CATCH Performed By: #### L 400.0001 #### [facility] [address] [place], [address] Absolute Neut 4.1 X10 3/uL Normal 2.0-7.7 [facility] Comment on above: Order Comment: CLEAN CATCH Performed By: #### L 400.0001 #### [facility] [address] [facility] [place], [address] Basophils/100 WBC (Bld) 0.7 % Normal 0-1 [facility] Comment on above: Order Comment: CLEAN CATCH Performed By: #### L 400.0001 #### [facility] [address] [place], [address] Eosinophils/100 WBC (Bld) 3.7 % Normal 0-5 [facility] Comment on above: Order Comment: CLEAN CATCH Performed By: #### L 400.0001 #### [facility] [address] [place], [address] Erythrocyte distribution width (RBC) [Ratio] 14.0 % Normal 11.6-14.6 [facility] Comment on above: Order Comment: CLEAN CATCH Performed By: #### L 400.0001 #### [facility] [address] [place], [address] Hematocrit (Bld) [Volume fraction] 38.1 % Low 40-54 [facility] Comment on above: Order Comment: CLEAN CATCH Performed By: #### L 400.0001 #### [facility] [address] [place], [address] Hemoglobin (Bld) [Mass/Vol] 12.4 g/dL Low 13.0-16.5 [facility] Comment on above: Order Comment: CLEAN CATCH Performed By: #### L 400.0001 #### [facility] [address] [place], [address] IG% 0.300 Normal 0.0-0.9 [facility] Comment on above: Order Comment: CLEAN CATCH Result Comment: IG% - Immature Granulocytes (promyelocytes, myelocytes and metamyelocytes) > 1% indicates that a LEFT SHIFT is Present. Performed By: #### L 400.0001 #### [facility] [address] [place], [address] Lymphocytes/100 WBC (Bld) 16.2 % Low 19-41 [facility] Comment on above: Order Comment: CLEAN CATCH Performed By: #### L 400.0001 #### [facility] [address] [place], [address] MCH (RBC) [Entitic mass] 29.2 pg Normal 27.0-32.0 [facility] Comment on above: Order Comment: CLEAN CATCH Performed By: #### L 400.0001 #### [facility] [address] [place], [address] MCHC (RBC) [Mass/Vol] 32.5 g/dL Normal 32-36 [facility] Comment on above: Order Comment: CLEAN CATCH Performed By: #### L 400.0001 #### [facility] [address] [place], [address] MCV (RBC) [Entitic vol] 89.6 fL Normal 80-94 [facility] Comment on above: Order Comment: CLEAN CATCH Performed By: #### L 400.0001 #### [facility] [address] [place], [address] Monocytes/100 WBC (Bld) 9.5 % Normal 0-10 [facility] Comment on above: Order Comment: CLEAN CATCH Performed By: #### L 400.0001 #### [facility] [address] [place], [address] Neutrophils/100 WBC (Bld) 69.6 % Normal 47-70 [facility] Comment on above: Order Comment: CLEAN CATCH Performed By: #### L 400.0001 #### [facility] [address] [place], [address] Nucleated RBC (Bld) [#/Vol] 0 10*3/uL Normal 0-5 [facility] Comment on above: Order Comment: CLEAN CATCH Performed By: #### L 400.0001 #### [facility] [address] [place], [address] Platelet mean volume (Bld) [Entitic vol] 10.3 fL Normal 6.2-12.0 [facility] Comment on above: Order Comment: CLEAN CATCH Performed By: #### L 400.0001 #### [facility] [address] [place], [address] Platelets (Bld) [#/Vol] 207 10*3/uL Normal 150-450 [facility] Comment on above: Order Comment: CLEAN CATCH Performed By: #### L 400.0001 #### [facility] [address] [place], [address] RBC (Bld) [#/Vol] 4.25 10*6/uL Low 4.6-6.2 [facility] Comment on above: Order Comment: CLEAN CATCH Performed By: #### L 400.0001 #### [facility] [address] [place], [address] RDW SD 45.2 fl High 35.1-43.9 [facility] Comment on above: Order Comment: CLEAN CATCH Performed By: #### L 400.0001 #### [facility] [address] [place], [address] WBC (Bld) [#/Vol] 5.9 10*3/uL Normal 4.4-11.0 [facility] Comment on above: Order Comment: CLEAN CATCH Performed By: #### L 400.0001 #### [facility] [address] [place], [address] Comprehensive Metabolic Prof ilon 08-03-2024 Albumin [Mass/Vol] 3.2 g/dL Normal 3.2-5.0 [facility] Comment on above: Order Comment: CLEAN CATCH Performed By: #### L 400.0001 #### [facility] [address] [place], [address] Albumin/Globulin [Mass ratio] 0.8 {ratio} Low 0.9-2.4 [facility] Comment on above: Order Comment: CLEAN CATCH Performed By: #### L 400.0001 #### [facility] [address] [place], [address] ALK P 77 U/L Normal 45-117 [facility] Comment on above: Order Comment: CLEAN CATCH Performed By: #### L 400.0001 #### [facility] [address] [place], [address] ALT [Catalytic activity/Vol] 19 U/L Normal 16-61 [facility] Comment on above: Order Comment: CLEAN CATCH Performed By: #### L 400.0001 #### [facility] [address] [place], [address] AST [Catalytic activity/Vol] 13 U/L Low 15-37 [facility] Comment on above: Order Comment: CLEAN CATCH Performed By: #### L 400.0001 #### [facility] [address] [place], [address] Bilirubin [Mass/Vol] 0.40 mg/dL Normal 0.20-1.00 [facility] Comment on above: Order Comment: CLEAN CATCH Result Comment: For patients on eltrombopag therapy, use of Dimension [place] TBIL is not recommended. Performed By: #### L 400.0001 #### [facility] [address] [place], [address] BUN/CRE 19.0 RATIO Normal 10-20 [facility] Comment on above: Order Comment: CLEAN CATCH Performed By: #### L 400.0001 #### [facility] [address] [place], [address] CA,Total 9.2 mg/dL Normal 8.5-10.1 [facility] Comment on above: Order Comment: CLEAN CATCH Performed By: #### L 400.0001 #### [facility] [address] [place], [address] Chloride [Moles/Vol] 106 mmol/L Normal 98-107 [facility] Comment on above: Order Comment: CLEAN CATCH Performed By: #### L 400.0001 #### [facility] [address] [place], [address] CO2 [Moles/Vol] 27.0 mmol/L Normal 21.0-32.0 [facility] Comment on above: Order Comment: CLEAN CATCH Performed By: #### L 400.0001 #### [facility] [address] [place], [address] Creatinine [Mass/Vol] 1.05 mg/dL Normal 0.70-1.30 [facility] Comment on above: Order Comment: CLEAN CATCH Result Comment: The validity of the calculated GFR GFRAA in patients over 70 years has not been determined. Clinical correlation is essential. Performed By: #### L 400.0001 #### [facility] [address] [place], [address] ECRCL 76.57 ml/min Normal [facility] Comment on above: Order Comment: CLEAN CATCH Performed By: #### L 400.0001 #### [facility] [address] [place], [address] EST GFR - AA 89 mL/min Normal >60 [facility] Comment on above: Order Comment: CLEAN CATCH Result Comment: Afri can Qat[place] GFR Calc Performed By: #### L 400.0001 #### [facility] [address] [place], [address] GAP 6 Normal 5-15 [facility] Comment on above: Order Comment: CLEAN CATCH Performed By: #### L 400.0001 #### [facility] [address] [place], [address] GFR/1.73 sq M.predicted among non-blacks MDRD (S/P/Bld) [Vol rate/Area] 73 mL/min/{1.73_m2} Normal >60 [facility] Comment on above: Order Comment: CLEAN CATCH Result Comment: Non- GFR Calc Performed By: #### L 400.0001 #### [facility] [address] [place], [address] Globulin (S) [Mass/Vol] 4.2 g/dL Normal 2.2-4.2 [facility] Comment on above: Order Comment: CLEAN CATCH Performed By: #### L 400.0001 #### [facility] [address] [place], [address] Glucose [Mass/Vol] 124 mg/dL High 74-106 [facility] Comment on above: Order Comment: CLEAN CATCH Result Comment: Fast ing Glucose result from 100 to 125 mg/dL suggests IMPAIRED HOMEOSTASIS per A.D.A. criteria. Performed By: #### L 400.0001 #### [facility] [address] [place], [address] Potassium [Moles/Vol] 3.9 mmol/L Normal 3.5-5.1 [facility] Comment on above: Order Comment: CLEAN CATCH Performed By: #### L 400.0001 #### [facility] [address] [place], [address] Sodium [Moles/Vol] 139 mmol/L Normal 136-145 [facility] Comment on above: Order Comment: CLEAN CATCH Performed By: #### L 400.0001 #### [facility] [address] [place], [address] T PROT 7.4 g/dL Normal 6.4-8.2 [facility] Comment on above: Order Comment: CLEAN CATCH Performed By: #### L 400.0001 #### [facility] [address] [place], [address] Urea nitrogen [Mass/Vol] 20 mg/dL High 7-18 [facility] Comment on above: Order Comment: CLEAN CATCH Performed By: #### L 400.0001 #### [facility] [address] [place], [address] LDHon 08-03-2024 LDH 161 U/L Normal 87-241 [facility] Comment on above: Order Comment: CLEAN CATCH Performed By: #### L 400.0001 #### [facility] [address] [place], [address] Oncology Visit Reporton 07-16 Oncology Visit Report [facility] [address] [place] [address] OFFICE VISIT Date of Service: 08/03/24 1428 MR#: [id number] Acct: [id number] Name: LISSET FARMER Rep #: [id number] : 1950 From: Lele Denis MD Age/Sex: 74/M Location: [facility] Status: Signed HPI Subjective Date of Service [...] Prostate biopsy o/n 01/24/2019 showed /Prostatic adenocarcinoma [place] (5+5). He has started hormonal therapy (Lupron [...] disease. Comes for follow up, feeling well. [facility] Medical History Prostate cancer Elevated PSA [...] Total Bilirubin (more content not included)... Normal [facility] PSA,Total- Diagnosticon 07-16 PSA, DIAGNOSTIC 4.26 ng/mL High 0.0-4.0 [facility] Comment on above: Order Comment: CLEAN CATCH Result Comment: This test was performed using the TPSA assay method for the [employer] chemistry system. Values obtained with different assay methods cannot be used interchangably. When changing PSA assays in the course of monitoring a patient, additional sequential testing should be carried out to confirm baseline values. Performed By: #### L 400.0001 #### [facility] [address] [place], [place], [address] No Panel InformationOrdered By: ANDRA Hunt on 05-04-2023 Prostate Specific Antigen Total 9.82 ng/mL 0.0-4.0 [facility] Comment on above: This test was perfor med using the TPSA assay method for the[employer] chemistry system. Values obtained with differentassay methods cannot be used interchangably.When changing PSA assays in the course of monitoring apatient, additional sequential testing should be carriedout to confirm baseline values. Absolute lymphocyte counton 07-01-2022 Lymphocytes Auto (Unsp spec) [#/Vol] 0.86 10*3/uL 0.83-4.51 [facility] Work Phone: Basophil percentageon 2021 Basophils/100 WBC (Bld) 0.6 % 0-1 [facility] Work Phone: Bilirubin [Mass/Vol] 0.40 mg/dL 0.20-1.00 [facility] Work Phone: Comment on above: For patients on eltr ombopag therapy, use of Dimension [place] TBIL is not recommended. Chloride [Moles/Vol] 107 mmol/L 98-107 [facility] Work Phone: Eosinophils/100 WBC (Bld) 3.5 % 0-5 [facility] Work Phone: Glucose [Mass/Vol] 178 mg/dL 74-106 [facility] Work Phone: Comment on above: Fasting Glucose resu lt greater than or equal to 126 mg/dL suggests DIABETES MELLITUS per A.D.A. criteria. Neutrophils (Bld) [#/Vol] 3.5 10*3/uL 2.0-7.7 [facility] Work Phone: Neutrophils/100 WBC (Bld) 71.2 % 47-70 [facility] Work Phone: Potassium [Moles/Vol] 4.0 mmol/L 3.5-5.1 [facility] Work Phone: Protein [Mass/Vol] 7.3 g/dL 6.4-8.2 [facility] Work Phone: Sodium [Moles/Vol] 143 mmol/L 136-145 [facility] Work Phone: WBC (Bld) [#/Vol] 4.9 10*3/uL 4.4-11.0 [facility] Work Phone: Blood erythrocytes count (nu mber/volume)on 07-01-2022 RBC (Bld) [#/Vol] 4.05 10*6/uL 4.6-6.2 [facility] Work Phone: Blood hemoglobin measurement (mass/volume)on 07-01-2022 Hemoglobin (Bld) [Mass/Vol] 12.1 g/dL 13.0-16.5 [facility] Work Phone: Blood lymphocytes/100 leukoc yteson 07-01-2022 Lymphocytes/100 WBC (Bld) 17.7 % 19-41 [facility] Work Phone: Blood monocytes/100 leukocyt eson 07-01-2022 Monocytes/100 WBC (Bld) 6.6 % 0-10 [facility] Work Phone: [phone] Blood platelet mean volumeon 07-01-2022 Platelet mean volume (Bld) [Entitic vol] 10.6 fL 6.2-12.0 [facility] Work Phone: [phone] Determination of erythrocyte mean corpuscular volume (MCV)on 07-01-2022 MCV (RBC) [Entitic vol] 91.1 fL 80-94 [facility] Work Phone: [phone] Hematocrit Auto (Bld) [Volum e fraction]on 07-01-2022 Hematocrit (Bld) [Volume fraction] 36.9 % 40-54 [facility] Work Phone: [phone] Laboratory - Chemistry and C hemistry - challengeon 07-01-2022 ALP [Catalytic activity/Vol] 66 U/L 45-117 [facility] Work Phone: [phone] ALT [Catalytic activity/Vol] 30 U/L 16-61 [facility] Work Phone: [phone] CO2 [Moles/Vol] 27.0 mmol/L 21.0-32.0 [facility] Work Phone: [phone] Globulin (S) [Mass/Vol] 3.8 g/dL 2.2-4.2 [facility] Work Phone: [phone] Urea nitrogen/Creatinine [Mass ratio] 18.7 mg/mg 10-20 [facility] Work Phone: [phone] Laboratory - Hematology and Cell countson 07-01-2022 Erythrocyte distribution width (RBC) [Entitic vol] 46.7 fL 35.1-43.9 [facility] Work Phone: [phone] Erythrocyte distribution width (RBC) [Ratio] 13.9 % 11.6-14.6 [facility] Work Phone: [phone] Immature granulocytes/100 WBC (Bld) 0.400 % 0.0-0.9 [facility] Work Phone: [phone] Comment on above: IG% - Immature Granu locytes (promyelocytes, myelocytes and metamyelocytes) > 1% indicates that a LEFT SHIFT is Present. MCH (RBC) [Entitic mass] 29.9 pg 27.0-32.0 [facility] Work Phone: [phone] Nucleated RBC/100 WBC (Bld) [Ratio] 0 % 0-5 [facility] Work Phone: [phone] MCHC Auto (RBC) [Mass/Vol]on 07-01-2022 MCHC (RBC) [Mass/Vol] 32.8 g/dL 32-[address] [facility] Work Phone: [phone] Panel Informationon 07-01 Estimated Creatinine Clearance Calc 66.46 ml/min [facility] Work Phone: [phone] Estimated GFR (MDRD) Amer 87 mL/min >60 [facility] Work Phone: [phone] Comment on above: GFR Calc Estimated GFR (MDRD) Non-Af Amer 72 mL/min >60 [facility] Work Phone: [phone] Comment on above: Non- GFR Calc Prostate Specific Antigen Total 22.50 ng/mL 0.0-4.0 [facility] Work Phone: [phone] Comment on above: This test was perfor med using the TPSA assay method for [employer] chemistry system. Values obtained with differentassay methods cannot be used interchangably.When changing PSA assays in the course of monitoring apatient, additional sequential testing should be carriedout to confirm baseline values. Platelets bldon 07-01-2022 Platelets (Bld) [#/Vol] 189 10*3/uL 150-450 [facility] Work Phone: [phone] Serum or plasma albumin lakes[place]ia urement (mass/volume)on 07-01-2022 Albumin [Mass/Vol] 3.5 g/dL 3.2-5.0 [facility] Work Phone: [phone] Serum or plasma albumin/glob ulin mass ratioon 07-01-2022 Albumin/Globulin [Mass ratio] 0.9 {ratio} 0.9-2.4 [facility] Work Phone: [phone] Serum or plasma calcium lakeshia urement (mass/volume)on 07-01-2022 Calcium [Mass/Vol] 8.8 mg/dL 8.5-10.1 [facility] Work Phone: Serum or plasma creatinine m easurement (mass/volume)on 07-01-2022 Creatinine [Mass/Vol] 1.07 mg/dL 0.70-1.30 [facility] Work Phone: Comment on above: The validity of the calculated GFR & GFRAA in patients over 70 years has not been determined. Clinical correlation is essential. Serum or plasma urea nitroge n measurement (mass/volume)on 07-01-2022 Urea nitrogen [Mass/Vol] 20 mg/dL 7-18 [facility] Work Phone: Thin prep Papanicolaou smear with manual screeningon 07-01-2022 Thin prep Papanicolaou smear with manual screening 19 U/L 15-37 [facility] Work Phone: Thin prep Papanicolaou smear with manual screening 9 5-15 [facility] Work Phone: Thin prep Papanicolaou smear with manual screening 194 U/L 87-241 [facility] Work Phone: Whole blood hemoglobin A1c/t otal hemoglobin ratio (mass fraction)on 07-01-2022 HbA1c (Bld) [Mass fraction] 6.0 % 3.8-5.6 [facility] Work Phone: Comment on above: Normal < 5.7 % Predi abetic 5.7 - 6.4 % Diabetic >or= 6.5 % Please note range changes. Absolute lymphocyte counton 04-03-2022 Lymphocytes Auto (Unsp spec) [#/Vol] 1.02 10*3/uL 0.83-4.51 [facility] Work Phone: Basophil percentageon 2021 Basophils/100 WBC (Bld) 0.8 % 0-1 [facility] Work Phone: Bilirubin [Mass/Vol] 0.40 mg/dL 0.20-1.00 [facility] Work Phone: Comment on above: For patients on eltr ombopag therapy, use of Dimension [place] TBIL is not recommended. Chloride [Moles/Vol] 108 mmol/L 98-107 [facility] Work Phone: Eosinophils/100 WBC (Bld) 3.0 % 0-5 [facility] Work [phone] Glucose [Mass/Vol] 104 mg/dL 74-106 [facility] Work Phone: [phone] Comment on above: Fasting Glucose resu lt from 100 to 125 mg/dL suggests IMPAIRED HOMEOSTASIS per A.D.A. criteria. Neutrophils (Bld) [#/Vol] 3.4 10*3/uL 2.0-7.7 [facility] Work Phone: Neutrophils/100 WBC (Bld) 66.8 % 47-70 [facility] Work Phone: Potassium [Moles/Vol] 4.1 mmol/L 3.5-5.1 [facility] Work Phone: Protein [Mass/Vol] 7.4 g/dL 6.4-8.2 [facility] Work Phone: Sodium [Moles/Vol] 140 mmol/L 136-145 [facility] Work Phone: WBC (Bld) [#/Vol] 5.0 10*3/uL 4.4-11.0 [facility] Work [phone] Blood erythrocytes count (nu mber/volume)on 04-03-2022 RBC (Bld) [#/Vol] 4.20 10*6/uL 4.6-6.2 [facility] Work Phone: Blood hemoglobin measurement (mass/volume)on 04-03-2022 Hemoglobin (Bld) [Mass/Vol] 12.4 g/dL 13.0-16.5 [facility] Work [phone] Blood lymphocytes/100 leukoc yteson 04-03-2022 Lymphocytes/100 WBC (Bld) 20.3 % 19-41 [facility] Work Phone: Blood monocytes/100 leukocyt eson 04-03-2022 Monocytes/100 WBC (Bld) 8.7 % 0-10 [facility] Work Phone: Blood platelet mean volumeon 04-03-2022 Platelet mean volume (Bld) [Entitic vol] 10.4 fL 6.2-12.0 [facility] Work Phone: Determination of erythrocyte mean corpuscular volume (MCV)on 04-03-2022 MCV (RBC) [Entitic vol] 90.7 fL 80-94 [facility] Work Phone: Hematocrit Auto (Bld) [Volum e fraction]on 04-03-2022 Hematocrit (Bld) [Volume fraction] 38.1 % 40-54 [facility] Work Phone: Laboratory - Chemistry and C hemistry - challengeon 04-03-2022 ALP [Catalytic activity/Vol] 68 U/L 45-117 [facility] Work Phone: ALT [Catalytic activity/Vol] 25 U/L 16-61 [facility] Work Phone: CO2 [Moles/Vol] 29.0 mmol/L 21.0-32.0 [facility] Work Phone: Globulin (S) [Mass/Vol] 3.8 g/dL 2.2-4.2 [facility] Work Phone: [phone] Urea nitrogen/Creatinine [Mass ratio] 17.6 mg/mg 10-20 [facility] Work Phone: Laboratory - Hematology and Cell countson 04-03-2022 Erythrocyte distribution width (RBC) [Entitic vol] 46.5 fL 35.1-43.9 [facility] Work Phone: Erythrocyte distribution width (RBC) [Ratio] 13.9 % 11.6-14.6 [facility] Work Phone: Immature granulocytes/100 WBC (Bld) 0.400 % 0.0-0.9 [facility] Work Phone: Comment on above: IG% - Immature Granu locytes (promyelocytes, myelocytes and metamyelocytes) > 1% indicates that a LEFT SHIFT is Present. MCH (RBC) [Entitic mass] 29.5 pg 27.0-32.0 [facility] Work Phone: [phone] Nucleated RBC/100 WBC (Bld) [Ratio] 0 % 0-5 [facility] Work Phone: [phone] MCHC Auto (RBC) [Mass/Vol]on 04-03-2022 MCHC (RBC) [Mass/Vol] 32.5 g/dL 32-36 [facility] Work Phone: No Panel Informationon 04-03 Estimated Creatinine Clearance Calc 69.72 ml/min [facility] Work Phone: [phone] Estimated GFR (MDRD) Amer 92 mL/min >60 [facility] Work Phone: Comment on above: GFR Calc Estimated GFR (MDRD) Non-Af Amer 76 mL/min >60 [facility] Work Phone: [phone] Comment on above: Non- GFR Calc Prostate Specific Antigen Total 12.50 ng/mL 0.0-4.0 [facility] Work Phone: Comment on above: This test was perfor med using the TPSA assay method for the[employer] Compan[employer] chemistry system. Values obtained with differentassay methods cannot be used interchangably.When changing PSA assays in the course of monitoring apatient, additional sequential testing should be carriedout to confirm baseline values. Platelets bldon 04-03-2022 Platelets (Bld) [#/Vol] 193 10*3/uL 150-450 [facility] Work Phone: [phone] Serum or plasma albumin lakeshia urement (mass/volume)on 04-03-2022 Albumin [Mass/Vol] 3.6 g/dL 3.2-5.0 [facility] Work Phone: [phone] Serum or plasma albumin/glob ulin mass ratioon 04-03-2022 Albumin/Globulin [Mass ratio] 0.9 {ratio} 0.9-2.4 [facility] Work Phone: Serum or plasma calcium lakeshia urement (mass/volume)on 04-03-2022 Calcium [Mass/Vol] 9.0 mg/dL 8.5-10.1 [facility] Work Phone: Serum or plasma creatinine m easurement (mass/volume)on 04-03-2022 Creatinine [Mass/Vol] 1.02 mg/dL 0.70-1.30 [facility] Work Phone: Comment on above: The validity of the calculated GFR & GFRAA in patients over 70 years has not been determined. Clinical correlation is essential. Serum or plasma urea nitroge n measurement (mass/volume)on 04-03-2022 Urea nitrogen [Mass/Vol] 18 mg/dL 7-18 [facility] Work Phone: Thin prep Papanicolaou smear with manual screeningon 04-03-2022 Thin prep Papanicolaou smear with manual screening 14 U/L 15-37 [facility] Work Phone: [phone] Thin prep Papanicolaou smear with manual screening 3 5-15 [facility] Work Phone: Thin prep Papanicolaou smear with manual screening 186 U/L 87-241 [facility] Work Phone: Basophil percentageon 2021 Testosterone [Mass/Vol] 10.98 ng/dL [facility] Work Phone: Comment on above: CENTRAL 90% REFERENC E RANGES MALE AGE <50 197.44 - 669.58 ng/dL MALE AGE > or = 50 187.72 - 684.19 ng/dL FEMALE AGE <50 8.38 - 35.01 ng/dL FEMALE AGE > or = 50 <7.00 - 35.92 ng/dL Effective as of 06/10/21 No Panel Informationon 01-14 Prostate Specific Antigen Total 9.21 ng/mL 0.0-4.0 [facility] Work Phone: Comment on above: This test was perfor med using the TPSA assay method for [facility]. Values obtained with differentassay methods cannot be used interchangably.When changing PSA assays in the course of monitoring apatient, additional sequential testing should be carriedout to confirm baseline values. Blood platelet adequacy dete ction by light microscopyon 06-15-2019 Platelets LM Ql (Bld) ADEQUATE ADEQ [facility] Work Phone: No Panel Informationon 06-15 Differential Comment SCANNED [facility] Work Phone: Review by pathologiston Pathologist review Byron (Unsp spec) [Interp] Reviewed [facility] Work Phone: Comment on above: Previous reported re sult: Zee dunn Edited by: DEVI on 06/16/19:7074Leukopenia and neutropenia.Clinical correlation necessary.Orville Mckay M.D. 06/16/19 AMENDED REPORT 06/16/19 1354 PATH REV previously reported as: Zee dunn Absolute reticulocyte counto n 06-01-2019 Reticulocytes (Bld) [#/Vol] 0.00 10*3/uL 0-5 [facility] Work Phone: Laboratory - Hematology and Cell countson 05-23-2019 Erythrocyte distribution width (RBC) [Ratio] 15.7 % 11.6-14.6 [facility] Work Phone: No Panel Informationon 05-23 Red Cell Distribution Width Diff 50.2 fl 35.1-43.9 [facility] Work Phone: Total cell counton 9 Cells counted Molgen (Bld/Tiss) [#] Not Reportable [facility] Work Phone: Vital Signs Date Time Vital Sign Value Performing Clinician Faci litelva 05-27-2025 14:51-0400 Body temperature 98.4 [degF] Dr. Lisset Barrera DO Work Phone: [facility] 05-27-2025 14:51-0400 Diastolic blood pressure 77 mm[Hg] Dr. Lisset Barrera DO Work Phone: [facility] 05-27-2025 14:51-0400 Heart rate 100 /min Dr. Lisset Barrera DO Work Phone: [facility] 05-27-2025 14:51-0400 Respiratory rate 18 /min Dr. Lisset Barrera DO Work Phone: [facility] 05-27-2025 14:51-0400 SaO2% (BldA) [Mass fraction] 98 % Dr. Lisset Barrera DO Work Phone: [facility] 05-27-2025 14:51-0400 Systolic blood pressure 117 mm[Hg] Dr. Lisset Barrera DO Work Phone: [facility] 05-27-2025 05:01-0400 Body mass index (BMI) [Ratio] 31.4 kg/m2 Dr. Lisset Barrera DO Work Phone: [facility] 05-27-2025 05:01-0400 Body weight [address] Lisset Barrera DO Work Phone: [facility] 05-23-2025 08:21-0400 Body height 180.[address] Lisset Barrera DO Work Phone: [facility] 05-23-2025 08:08-0400 Inhaled oxygen flow rate 2 L/min Dr. Lisset Barrera DO Work Phone: [facility] 05-22-2025 21:41-0400 Diastolic blood pressure 90 mm[Hg] Dr. Lisset Barrera DO Work Phone: [facility] 05-22-2025 21:41-0400 Heart rate 136 /min Dr. Lisset Barrera DO Work Phone: [facility] 05-22-2025 21:41-0400 Respiratory rate 15 /min Dr. Lisset Barrera DO Work Phone: [facility] 05-22-2025 21:41-0400 Systolic blood pressure 136 mm[Hg] Dr. Lisset Barrera DO Work Phone: [facility] 05-22-2025 21:20-0400 Body temperature 98 [degF] Dr. Lisset Barrera DO Work Phone: [facility] 05-22-2025 21:20-0400 SaO2% (BldA) [Mass fraction] 95 % Dr. Lisset Barrera DO Work Phone: [facility] 05-22-2025 17:03-0400 Body height 180.[address] Lisset Barrera DO Work Phone: [facility] 05-22-2025 17:03-0400 Body mass index (BMI) [Ratio] 32.1 kg/m2 Dr. Lisset Barrera DO Work Phone: [facility] 05-22-2025 17:03-0400 Body weight 104.[address] Lisset Barrera DO Work Phone: [facility] 05-09-2025 12:09-0400 Diastolic blood pressure 87 mm[Hg] Dr. Lisset Barrera DO Work Phone: [facility] 05-09-2025 12:09-0400 Heart rate 62 /min Dr. Lisset Barrera DO Work Phone: [facility] 05-09-2025 12:09-0400 Respiratory rate 22 /min Dr. Lisset Barrera DO Work Phone: [facility] 05-09-2025 12:09-0400 SaO2% (BldA) [Mass fraction] 98 % Dr. Lisset Barrera DO Work Phone: [facility] 05-09-2025 12:09-0400 Systolic blood pressure 127 mm[Hg] Dr. Lisset Barrera DO Work Phone: [facility] 05-09-2025 10:14-0400 Body mass index (BMI) [Ratio] 33 kg/m2 Dr. Lisset Barrera DO Work Phone: [facility] 05-09-2025 10:14-0400 Body weight 107.[address] Lisset Barrera DO Work Phone: [facility] 05-09-2025 09:52-0400 Body height 180.[address] Lisset Barrera DO Work Phone: [facility] 05-09-2025 09:52-0400 Body temperature 98.6 [degF] Dr. Lisset Barrera DO Work Phone: [facility] 05-09-2025 07:47-0400 Body mass index (BMI) [Ratio] 33.2 kg/m2 Dr. Lisset Barrera DO Work Phone: [facility] 05-09-2025 07:47-0400 Body temperature 97.4 [degF] Dr. Lisset Barrera DO Work Phone: [facility] 05-09-2025 07:47-0400 Body weight 107.[address] Lisset Barrera DO Work Phone: [facility] 05-09-2025 07:47-0400 Diastolic blood pressure 96 mm[Hg] Dr. Lisset Barrera DO Work Phone: [facility] 05-09-2025 07:47-0400 Heart rate 61 /min Dr. Lisset Barrera DO Work Phone: [facility] 05-09-2025 07:47-0400 Respiratory rate 18 /min Dr. Lisset Barrera DO Work Phone: [facility] 05-09-2025 07:47-0400 SaO2% (BldA) [Mass fraction] 94 % Dr. Lisset Barrera DO Work Phone: [facility] 05-09-2025 07:47-0400 Systolic blood pressure 136 mm[Hg] Dr. Lisset Barrera DO Work Phone: [facility] 03-04-2023 05:49-0400 Body height 180.[address] Lisset Barrera Work Phone: [facility] 03-04-2023 05:49-0400 Body mass index (BMI) [Ratio] 33.5 kg/m2 Dr. Lisset Barrera Work Phone: [facility] 03-04-2023 05:49-0400 Body temperature 97.6 [degF] Dr. Lisset Barrera Work Phone: [facility] 03-04-2023 05:49-0400 Body weight 108.[address] Lisset Barrera Work Phone: [facility] 03-04-2023 05:49-0400 Diastolic blood pressure 82 mm[Hg] Dr. Lisset Barrera Work Phone: [facility] 03-04-2023 05:49-0400 Heart rate 64 /min Dr. Lisset Barrera Work Phone: [facility] 03-04-2023 05:49-0400 Respiratory rate 18 /min Dr. Lisset Barrera Work Phone: [facility] 03-04-2023 05:49-0400 SaO2% (BldA) [Mass fraction] 96 % Dr. Lisset Barrera Work Phone: [facility] 03-04-2023 05:49-0400 Systolic blood pressure 141 mm[Hg] Dr. Lisset Barrera Work Phone: [facility] 08-05-2022 09:53-0400 Body height 180.[address] Lisset Barrera Work Phone: [facility] Work Phone: 08-05-2022 09:48-0400 Body mass index (BMI) [Ratio] 33.3 kg/m2 Dr. Lisset Barrera Work Phone: [facility] Work Phone: 08-05-2022 09:48-0400 Body temperature 98.3 [degF] Dr. Lisset Barrera Work Phone: [facility] Work Phone: 08-05-2022 09:48-0400 Body weight 108.[address] Lisset Barrera Work Phone: [facility] Work Phone: 08-05-2022 09:48-0400 Diastolic blood pressure 85 mm[Hg] Dr. Lisset Barrera Work Phone: [facility] Work Phone: 08-05-2022 09:48-0400 Heart rate 64 /min Dr. Lisset Barrera Work Phone: [facility] Work Phone: 08-05-2022 09:48-0400 Respiratory rate 15 /min Dr. Lisset Barrera Work Phone: [facility] Work Phone: 08-05-2022 09:48-0400 SaO2% (BldA) [Mass fraction] 95 % Dr. Lisset Barrera Work Phone: [facility] Work Phone: 08-05-2022 09:48-0400 Systolic blood pressure 144 mm[Hg] Dr. Lisset Barrera Work Phone: [facility] Work Phone: 07-23-2022 09:01-0400 Body mass index (BMI) [Ratio] 33.5 kg/m2 Dr. Lisset Barrera Work Phone: [facility] Work Phone: 07-23-2022 09:01-0400 Body temperature 97.7 [degF] Dr. Lisset Barrera Work Phone: [facility] Work Phone: 07-23-2022 09:01-0400 Body weight 109.[address] Lisset Barrera Work Phone: [facility] Work Phone: 07-23-2022 09:01-0400 Diastolic blood pressure 87 mm[Hg] Dr. Lisset Barrera Work Phone: [facility] Work Phone: 07-23-2022 09:01-0400 Heart rate 50 /min Dr. Lisset Barrera Work Phone: [facility] Work Phone: 07-23-2022 09:01-0400 Respiratory rate 18 /min Dr. Lisset Barrera Work Phone: [facility] Work Phone: 07-23-2022 09:01-0400 SaO2% (BldA) [Mass fraction] 96 % Dr. Lisset Barrera Work Phone: [facility] Work Phone: 07-23-2022 09:01-0400 Systolic blood pressure 147 mm[Hg] Dr. Lisset Barrera Work Phone: [facility] Work Phone: 07-02-2022 11:29-0400 Body height 180.[address] Lisset Barrera Work Phone: [facility] Work Phone: 07-02-2022 11:24-0400 Body mass index (BMI) [Ratio] 33.9 kg/m2 Dr. Lisset Barrera Work Phone: [facility] Work Phone: 07-02-2022 11:24-0400 Body temperature 98.4 [degF] Dr. Lisset Barrera Work Phone: [facility] Work Phone: 07-02-2022 11:24-0400 Body weight 110.[address] Lisset Barrera Work Phone: [facility] Work Phone: 07-02-2022 11:24-0400 Diastolic blood pressure 82 mm[Hg] Dr. Lisset Barrera Work Phone: [facility] Work Phone: 07-02-2022 11:24-0400 Heart rate 52 /min Dr. Lisset Barrera Work Phone: [facility] Work Phone: 07-02-2022 11:24-0400 Respiratory rate 15 /min Dr. Lisset aBrrera Work Phone: [facility] Work Phone: 07-02-2022 11:24-0400 SaO2% (BldA) [Mass fraction] 94 % Dr. Lisset Barrera Work Phone: [facility] Work Phone: 07-02-2022 11:24-0400 Systolic blood pressure 154 mm[Hg] Dr. Lisset Barrera Work Phone: [facility] Work Phone: 04-09-2022 10:19-0400 Body mass index (BMI) [Ratio] 34.4 kg/m2 Dr. Lisset Barrera Work Phone: [facility] Work Phone: 04-09-2022 10:19-0400 Body temperature 98.2 [degF] Dr. Lisset Barrera Work Phone: [facility] Work Phone: 04-09-2022 10:19-0400 Body weight 112.[address] Lisset Barrera Work Phone: [facility] Work Phone: 04-09-2022 10:19-0400 Diastolic blood pressure 92 mm[Hg] Dr. Lisset Barrera Work Phone: [facility] Work Phone: 04-09-2022 10:19-0400 Heart rate 57 /min Dr. Lisset Barrera Work Phone: [facility] Work Phone: 04-09-2022 10:19-0400 Respiratory rate 16 /min Dr. Lisset Barrera Work Phone: [facility] Work Phone: 04-09-2022 10:19-0400 SaO2% (BldA) [Mass fraction] 96 % Dr. Lisset Barrera Work Phone: [facility] Work Phone: 04-09-2022 10:19-0400 Systolic blood pressure 158 mm[Hg] Dr. Lisset Barrera Work Phone: [facility] Work Phone: 04-09-2022 10:19-0400 Body height 180.[address] Lisset Barrera Work Phone: [facility] Work Phone: 04-09-2022 10:19-0400 Body mass index (BMI) [Ratio] 34.4 kg/m2 Dr. Lisset Barrera Work Phone: [facility] Work Phone: 04-09-2022 10:19-0400 Body temperature 98.2 [degF] Dr. Lisset Barrera Work Phone: [facility] Work Phone: 04-09-2022 10:19-0400 Body weight 112.[address] Lisset Barrera Work Phone: [facility] Work Phone: 04-09-2022 10:19-0400 Diastolic blood pressure 92 mm[Hg] Dr. Lisset Barrera Work Phone: [facility] Work Phone: 04-09-2022 10:19-0400 Heart rate 57 /min Dr. Lisset Barrera Work Phone: [facility] Work Phone: 04-09-2022 10:19-0400 Respiratory rate 16 /min Dr. Lisset Barrera Work Phone: [facility] Work Phone: 04-09-2022 10:19-0400 SaO2% (BldA) [Mass fraction] 96 % Dr. Lisset Barrera Work Phone: [facility] Work Phone: 04-09-2022 10:19-0400 Systolic blood pressure 158 mm[Hg] Dr. Lisset Barrera Work Phone: [facility] Work Phone: 01-21-2022 04:56-0500 Body mass index (BMI) [Ratio] 33.7 kg/m2 Dr. Lisest Barrera Work Phone: [facility] Work Phone: 01-21-2022 04:56-0500 Body temperature 97.7 [degF] Dr. Lisset Barrera Work Phone: [facility] Work Phone: 01-21-2022 04:56-0500 Body weight 109.[address] Lisset Barrera Work Phone: [facility] Work Phone: 01-21-2022 04:56-0500 Diastolic blood pressure 75 mm[Hg] Dr. Lisset Barrera Work Phone: [facility] Work Phone: 01-21-2022 04:56-0500 Heart rate 60 /min Dr. Lisset Barrera Work Phone: [facility] Work Phone: 01-21-2022 04:56-0500 Respiratory rate 18 /min Dr. Lisset Barrera Work Phone: [facility] Work Phone: 01-21-2022 04:56-0500 SaO2% (BldA) [Mass fraction] 97 % Dr. Lisset Barrera Work Phone: [facility] Work Phone: 01-21-2022 04:56-0500 Systolic blood pressure 122 mm[Hg] Dr. Lisset Barrera Work Phone: [facility] Work Phone: 10-29-2020 10:58-0500 Body mass index (BMI) [Ratio] 32.9 kg/m2 Dr. Lisset Barrera Work Phone: [facility] Work Phone: 10-29-2020 10:58-0500 Body temperature 97.8 [degF] Dr. Lisset Barrera Work Phone: [facility] Work Phone: 10-29-2020 10:58-0500 Body weight 107.[address] Lisset Barrera Work Phone: [facility] Work Phone: 10-29-2020 10:58-0500 Diastolic blood pressure 79 mm[Hg] Dr. Lisset Barrera Work Phone: [facility] Work Phone: 10-29-2020 10:58-0500 Heart rate 53 /min Dr. Lisset Barrera Work Phone: [facility] Work Phone: 10-29-2020 10:58-0500 Respiratory rate 16 /min Dr. Lisset Barrera Work Phone: [facility] Work Phone: 10-29-2020 10:58-0500 SaO2% (BldA) [Mass fraction] 97 % Dr. Lisset Barrera Work Phone: [facility] Work Phone: 10-29-2020 10:58-0500 Systolic blood pressure 139 mm[Hg] Dr. Lisset Barrera Work Phone: [facility] Work Phone: 10-29-2020 09:58-0500 Body mass index (BMI) [Ratio] 32.9 kg/m2 Dr. Lisset Barrera Work Phone: [facility] Work Phone: 10-29-2020 09:58-0500 Body temperature 97.8 [degF] Dr. Lisset Barrera Work Phone: [facility] Work Phone: 10-29-2020 09:58-0500 Body weight 107.[address] Lisset Barrera Work Phone: [facility] Work Phone: 10-29-2020 09:58-0500 Diastolic blood pressure 79 mm[Hg] Dr. Lisset Barrera Work Phone: [facility] Work Phone: 10-29-2020 09:58-0500 Heart rate 53 /min Dr. Lisset Barrera Work Phone: [facility] Work Phone: 10-29-2020 09:58-0500 Respiratory rate 16 /min Dr. Lisset Barrera Work Phone: [facility] Work Phone: 10-29-2020 09:58-0500 SaO2% (BldA) [Mass fraction] 97 % Dr. Lisset Barrera Work Phone: [facility] Work Phone: 10-29-2020 09:58-0500 Systolic blood pressure 139 mm[Hg] Dr. Lisset Barrera Work Phone: [facility] Work Phone: Encounters Encounter Date Encounter Type Care Provider Facility Start: 05-27-2025 Non-patient / Non-visit Dr. Lisset Saldivar DO [facility] Work Phone: Start: 05-26-2025 Non-patient / Non-visit Dr. Lisset Saldivar DO [facility] Work Phone: Start: 05-25-2025 Non-patient / Non-visit Dr. Lisset Saldivar DO [facility] Work Phone: Start: 05-24-2025 Non-patient / Non-visit Dr. Lisset Saldivar DO [facility] Work Phone: Start: 05-23-2025 Non-patient / Non-visit Dr. Lisset Saldivar DO [facility] Work Phone: Start: 05-23-2025 ambulatory [facility] Facility: [facility] Start: 05-23-2025 Non-patient / Non-visit Dr. Saud Echavarria MD -[facility] Start: 05-22-2025 ambulatory [facility] Facility: [facility] Start: 05-22-2025 End: 05-27-2025 Evaluation and management of inpatient Dr. Jonn Adams DO -Progressive Care Unit Work Phone: Start: 05-09-2025 End: 05-09-2025 Emergency department patient visit Dr. Lisset Barrera DO Work Phone: -Emergency Department Work Phone: Start: 05-09-2025 End: 05-09-2025 Patient encounter procedure Janessa HARTMANC -[facility] Work Phone: Start: 05-09-2025 End: 05-09-[address] Lisset Barrera DO Work Phone: [facility] Work Phone: Start: 03-06-2025 End: 03-06-[address] Regan Guzman MD -Laboratory Work Phone: Start: 03-06-2025 End: 03-06-2025 ambulatory Regan Guzman Facility:[facility] Start: 11-30-2024 End: 11-30-2024 ambulatory [facility] Facility:[facility] Start: 08-31-2024 End: 08-31-2024 ambulatory [facility] Facility:[facility] Start: 09-25-2024 ambulatory Regan Sim lity:[facility] Start: 08-03-2024 End: 08-03-2024 ambulatory Lisset Barrera Facility:[facility] Start: 05-04-2023 End: 05-04-[address] Lisset Barrera Work Phone: [facility] Work Phone: Start: 05-04-2023 End: 05-04-[address] Lisset Barrera Work Phone: [facility]-Laboratory, [facility] Start: 03-04-2023 End: 03-04-[address] [facility] Start: 08-05-2022 End: 08-05-[address] Lisset Barrera Work Phone: [facility] Start: 08-03-2022 End: 08-03-[address] Lisset Barrera Work Phone: [facility] Work Phone: Start: 08-03-2022 End: 08-03-[address] [facility] Start: 07-23-2022 End: 07-23-[address] Lisset Barrera Work Phone: [facility] Start: 07-09-2022 End: 07-09-[address] Lisset Barrera Work Phone: [facility] Work Phone: Start: 07-09-2022 End: 07-09-[address] Lisset Barrera Work Phone: [facility]-Cat Scan, [facility] Start: 07-02-2022 End: 07-02-[address] Lisset Barrera Work Phone: [facility] Start: 07-01-[address] Lisset Barrera Work Phone: [facility] Start: 04-09-2022 End: 04-09-[address] Lisset Barrera Work Phone: [facility] Start: 04-07-2022 End: 04-07-[address] Lisset Barrera Work Phone: [facility]-Cat Scan, [facility] Start: 04-03-[address] Lisset Barrera Work Phone: [facility] Start: 01-21-2022 End: 01-21-[address] Lisset Barrera Work Phone: [facility]-Pulmonary Medicine [facility] Start: 01-14-2022 End: 01-14-[address] Lisset Barrera Work Phone: [facility]-Laboratory Procedures Date Procedure Procedure Detail Performing [...] above: Giuliano ECLIA methodol ogy.According to the [place] [employer], Serum PSAshould decrease and remain at undetectable levels afterradical prostatectomy. The AUA defines biochemicalrecurrence as an initial PSA value 0.2 ng/mL or greaterfollowed by a subsequent confirmatory PSA value 0.2 ng/mLor greater. Values obtained with different assay methods orkits cannot be used interchangeably. Results cannot beinterpreted as absolute evidence of the presence or absenceof malignant disease.Performed at: [facility] [id number] [place], [place] [id number] Director: Sean Emmanuel PhD, Phone: [phone] Start: 05-22-2025 Computed tomography of abdomen and [...] 05-22-2025 CT of head without contrast Dr. Lisset Barrera DO Work Phone: Start: 05-22-2025 Estimated [...] Activity Detail Author Start: 05-27-[address] [facility] Start: 05-24-2025 Referral to occupati onal therapist [facility] Start: 05-24-2025 Referral to service [facility] Start: 05-23-2025 Care planning and pr oblem solving actions [facility] Start: 05-23-2025 Care planning and pr oblem solving actions [facility] Start: 05-22-[address] [facility] Start: 05-22-2025 Assessment of risk o f venous thromboembolism [facility] Start: 05-22-2025 Insertion of cathete r into peripheral vein [facility] Start: 05-22-2025 Measuring intake and output [facility] Start: 05-22-2025 Providing care accor ding to standard [facility] Start: 05-22-2025 Referral to service [facility] Start: 05-22-[address] [facility] Start: 05-22-2025 [facility] Start: 05-22-2025 Following clinical p athway protocol [facility] Start: 05-22-[address] [facility] Start: 05-22-2025 Computed tomography of abdomen and pelvis with intravenous contrast Abdomen/Pelvis W IV Cont ONLY [facility] Start: 05-22-2025 CT Abdomen and Pelvi s W contrast IV [facility] Start: 05-22-2025 MRI of brain with contrast Brain W/W O Contrast [facility] Start: 05-22-2025 MRI of brain without contrast Brain without Contrast [facility] Start: 05-22-2025 Prostate specific an tigen measurement [facility] Start: 05-22-2025 Hospital admission, emergency, from emergency room, medical nature [facility] Start: 05-22-2025 Verification routine [facility] Start: 05-22-2025 Admission procedure [facility] Start: 05-22-2025 [facility] Start: 05-22-2025 End: 05-22-2025 [facility] Start: 05-22-2025 Patient referral to dietitian [facility] Start: 05-09-2025 [facility] Start: 05-09-2025 End: 05-09-2025 [facility] Start: 07-09-2022 Venous catheter care management [facility] Work Phone: Start: 04-07-2022 Venous catheter care management [facility] Work Phone: Start: 01-14-2021 Venous catheter care management [facility] Work Phone: Start: 10-29-2020 Venous catheter care management [facility] Work Phone: Start: 06-15-2019 CT Abdomen and Pelvi s W contrast IV [facility] Work Phone: Start: 06-01-2019 Disease process or condition education [facility] Work Phone: Start: 06-01-2019 Med[address] assessment [facility] Work Phone: Start: 06-01-2019 Medication monitoring [facility] Work Phone: Start: 06-01-[address] [facility] Work Phone: Start: 06-01-[address] [facility] Work Phone: Start: 06-01-[address] [facility] Work Phone: Start: 06-01-2019 [facility] Work Phone: Start: 05-11-2019 Disease process or condition education [facility] Work Phone: Start: 05-11-2019 [address] assessment [facility] Work Phone: Start: 05-11-2019 Medication monitoring W [facility] Work Phone: Start: 05-11-[address] [facility] Work Phone: Start: 05-11-[address] [facility] Work Phone: Start: 05-11-[address] [facility] Work Phone: Start: 05-11-2019 [facility] Start: 04-20-2019 Disease process or condition education [facility] Work Phone: Start: 04-20-2019 Med[address] administr [address]ion assessment [facility] Work Phone: Start: 04-20-2019 Medication monitoring W [facility] Work Phone: Start: 04-20-[address] [facility] Work Phone: Start: 04-20-[address] [facility] Work Phone: Start: 04-20-[address] [facility] Work Phone: Start: [facility]-20-[facility] Start: 03-30-2019 Disease process or condition education [facility] Work Phone: Start: 03-30-[address] assessment [facility] Work Phone: Start: 03-30-2019 Medication monitoring W [facility] Work Phone: Start: 03-30-[address] [facility] Work Phone: Start: 03-30-[address] [facility] Work Phone: Start: 03-30-[address] [facility] Work Phone: Start: 03-30-2019 [facility] Work Phone: Start: 03-22-2019 [facility] Work Phone: Start: 03-09-2019 Disease process or condition education [facility] Work Phone: Start: 03-09-2019 Medication administr [address] assessment [facility] Work Phone: Start: 03-09-2019 Medication monitoring W [facility] Work Phone: Start: 03-09-[address] [facility] Work Phone: Start: 03-09-[address] [facility] Work Phone: Start: 03-09-[address] [facility] Work Phone: Start: 03-09-2019 [facility] Work Phone: Start: 03-02-2019 [facility] Work Phone: Start: 02-16-2019 Disease process or condition education [facility] Work Phone: Start: 02-16-2019 Medication [address] assessment [facility] Work Phone: Start: 02-16-2019 Medication monitoring W [facility] Work Phone: Start: 02-16-[address] [facility] Work Phone: Start: 02-16-[address] [facility] Work Phone: Start: 02-16-[address] [facility] Work Phone: Start: 02-16-2019 [facility] Work Phone: Start: 02-14-2019 [facility] Work Phone: NM Whole body Bone Views [facility] Work Phone: Patient referral [facility] Work Phone: Prostate specific Ag [Mass/volume] in Serum or Plasma [facility] Troponin T.cardiac [Mass/volume] in Serum or Plasma by High sensitivity method [facility] Troponin T.cardiac [Mass/volume] in Serum or Plasma by High sensitivity method [facility] Payers Date Payer Category Payer Self-pay [id number] 2015 Unknown [id number] 2015 Medicare [id number] Unknown [id number] 2.16.8 [id number] Unknown [id number] 2.16.8 [id number] Unknown [id number] 2.16.8 [id number] Unknown [id number] 2.16.8 [id number] Unknown [id number] 2.16.8 [id number] Unknown [id number] 2.16.8 [id number] Unknown [id number] 2.16.8 [id number] Unknown [id number] 2.16.8 [id number] Unknown [id number] 2.16.8 [id number] Unknown [id number] 2.16.8 [id number] Unknown [id number] 2.16.8 [id number] Unknown [id number] 2.16.8 [id number] Unknown [id number] 2.16.8 [id number] Social History Date Type Detail Facility Start: 01-14-2021 Tobacco smoking stat [facility] Unknown if ever smoked [facility] Start: 11-27-2015 None [facility] Start: 11-28-2015 Alone [facility] Start: 11-27-2015 Non-smoker [facility] Start: 1950 Sex Assigned At Male W [facility] Start: 05-09-2025 End: 05-27-2025 Tobacco smoking status NHIS Never smoked tobacco (finding) [facility] Medical Equipment Procedure Code Equipment Code [...] Assessment Result Facility 05-27-2025 Functional status Ambulates [facility] Work Phone: Mental Status Date Assessment Result Facility 05-27-2025 Cognitive function Voice/Name [facility] Work Phone: 05-22-2025 Cognitive function Voice/Name [facility] Work Phone: 05-09-2025 Cognitive function Voice/Name [facility] Work Phone: 06-01-2019 Cognitive function Mood Descript ion Appropriate;Calm;Relaxed [facility] Work Phone: Clinical Notes 05-09-2025 to 05-27-2025 Note Date & Type Note Facility 05-27-2025 Hospital Discharg e instructions Additional Instructions Date of Discharge: 05/27/25 [facility] Work Phone: 05-27-2025 Progress note Note Date/Time May 27, 2025 11:47am [facility] Medical Records Department [address] [place] [address] Progress Note - Hospitalist 05/26/25 1856 MR#: [id number] Acct: [id number] Name: LISSET FARMER Rep #:[id number] 9 : 1950 75 From: Lisset Saldivar DO PCP: Dr. Lisset Barrera, DO Status:ADM IN Location: [place] [address] Reason for Visit Reason for Visit: Diagnoses [...] 35 minutes Charges/Coding Visit Charges Inpatient E&M: 09817 Subs Hosp L2 05/27/25 1147 <Electronically signed by Lisset Saldivar DO> Cosigner Signature (if applicable): CC: ~ Signed [facility] Work Phone: 1(885) 176-551507-13-2025 Discharge summary Author Lisset Saldivar [facility] Note Date/Time May 27, 2025 11:4 0am [facility] Medical Records Department [address] [facility] [place] [address] Transfer to [facility] MR#: [id number] Acct: [id number] Name: LISSET FARMER Rep #:[id number] 0 : 1950 75 From: Lisset Saldivar DO PCP: Dr. Lisset Barrera, DO Status:ADM IN Certification of patient admission REQUIRED AT TIME OF ADMISSION. I CERTIFY THAT POST-HOSPITAL ECF SERVICES ARE REQUIRED TO BE GIVEN ON AN IN-PATIENT BASIS BECAUSE OF THE ABOVE NAMED PATIENT'S NEED FOR SHELTER CARE ON A CONTINUING BASIS FOR THE [...] Adams DO; Dr. Lisset Barrera DO ~ [facility] Work Phone: 1(240) 989-997207-13-2025 Progress note [facility] Medical Records Department [address] [place] [address] Progress Note - Hospitalist 05/26/25 7595 MR#: [id number] Acct: [id number] Name: LISSET FARMER Rep #:[id number] 9 : 1950 75 From: Lisset Saldivar DO PCP: Dr. Lisset Barrera, DO Status:ADM IN Location: [place] [address] Reason for Visit Reason for Visit: Diagnoses [...] 35 minutes Charges/Coding Visit Charges Inpatient E&M: 12954 Subs Hosp L2 05/27/25 1147 Cosigner Signature (if applicable): CC: ~ Signed [facility]07-13-2025 Discharge summary [facility] Medical Records Department [address] [place] [address] Transfer to [facility] MR#: [id number] Acct: [id number] Name: LISSET FARMER Rep #:[id number] 0 : 1950 75 From: Lisset Saldivar DO PCP: Dr. Lisset Barrera, DO Status:ADM IN Certification of patient admission REQUIRED AT TIME OF ADMISSION. I CERTIFY THAT POST-HOSPITAL ECF SERVICES ARE REQUIRED TO BE GIVEN ON AN IN-PATIENT BASIS BECAUSE OF THE ABOVE NAMED PATIENT'S NEED FOR SHELTER CARE ON A CONTINUING BASIS FOR THE [...] Adams DO; Dr. Lisset Barrera DO ~ [facility]07-12-2025 Progress note Author Lisset Saldivar [facility] Note Date/Time May 26, 2025 8:17 am [facility] Medical Records Department [address] [place] [address] Progress Note - Hospitalist 05/25/25 1617 MR#: [id number] Acct: [id number] Name: LISSET FARMER Rep #:[id number] 2 : 1950 75 From: Lisset Saldivar DO PCP: Dr. Lisset Holly, DO Status:ADM IN Location: [facility] [id number] Reason for Visit Reason for Visit: [...] 35 minutes Charges/Coding Visit Charges Inpatient E&M: 62707 Subs Hosp L2 05/26/25 0817 <Electronically signed by Lisset Saldivar DO> Cosigner Signature (if applicable): CC: ~ Signed [facility] Work Phone: 1(866) 522-719207-12-2025 Progress note [facility] Medical Records Department [address] [place] [address] Progress Note - Hospitalist 05/25/25 1617 MR#: [id number] Acct: [id number] Name: LISSET FARMER Rep #:[id number] 2 : 1950 75 From: Lisset Saldivar DO PCP: Dr. Lisset Barrera, DO Status:ADM IN Location: [place] [address] Reason for Visit Reason for Visit: Diagnoses [...] 35 minutes Charges/Coding Visit Charges Inpatient E&M: 63941 Subs Hosp L2 05/26/25 0817 Cosigner Signature (if applicable): CC: ~ Signed [facility]07-10-2025 Progress note Author Lisset Saldivar [facility] Note Date/Time May 24, 2025 4:53 pm [facility] Medical Records Department [address] [place] [address] Progress Note - Hospitalist 05/24/25 1650 MR#: [id number] Acct: [id number] Name: LISSET FARMER Rep #:[id number] 7 : 1950 75 From: Lisset Saldivar DO PCP: Dr. Lisset Barrera, DO Status:ADM IN Location: [place] [address] Reason for Visit Reason for Visit: Diagnoses [...] arteries. No significant stenosis seen. Reading Location: [place] [address] Rhythm Strip Rhythm Strip: A-fib Rate: 133 [...] 35 minutes Charges/Coding Visit Charges Inpatient E&M: 43528 Subs Hosp L2 05/24/251652 <Electronically signed by Lisset Saldivar DO> Cosigner Signature (if applicable): CC: ~ Signed [facility] Work Phone: 1(169) 541-162507-10-2025 Progress note [facility] Medical Records Department [address] [place] [address] Progress Note - Hospitalist 05/24/25 165 MR#: [id number] Acct: [id number] Name: LISSET FARMER Rep #:[id number] 7 : 1950 75 From: Lisset Saldivar DO PCP: Dr. Lisset Barrera, DO Status:ADM IN Location: [place] [address]- Reason for Visit Reason for Visit: Diagnoses [...] arteries. No significant stenosis seen. Reading Location: [place] [address] Rhythm Strip Rhythm Strip: A-fib Rate: 133 [...] 35 minutes Charges/Coding Visit Charges Inpatient E&M: 88214 Subs Hosp L2 05/24/25 0279 Cosigner Signature (if applicable): CC: ~ Signed [facility]07-10-2025 Consult note Author Khadra Cabezas [facility] Note Date/Time May 24, 2025 1:25 pm [facility] Medical Records Department [address] [place] [address] Consultation - Neurology 05/24/25 1253 MR#: [id number] Acct: [id number] Name: LISSET FARMER Rep #:[id number] 1 : 1950 75 From: Khadra Cabezas MD PCP: Dr. Lisset Barrera, DO Status:ADM IN Location: [place] [address] Assessment and Plan: Stroke Assessment/Plan LISSET FARMER, [...] mls @ 15 mls/hr 05/22/25 22:20 IV .[id number] PRN Saline Flush Sodium Chloride 250 mls @ 15 mls/hr 05/22/25 22:20 IV .[id number] PRN Additional IVPB Infusion Melatonin 3 mg [...] applicable): CC: Dr. Lisset Barrera DO~ Signed [facility] Work Phone: 1(864) 784-231007-10-2025 Radiology Diagnostic study note [facility] Imaging Services [address] [place], [place] [id number] CTA Head AND Neck W/ Contrast MR#: [id number] Acct: [id number] Name: MAGDYCATHERINELISSET S Rep #: [id number] 1 : 1950 M 75 From: Pedro Arauz MD PCP: Dr. Lisset Barrera DO Status: ADM IN Study:CTA Head AND Neck W/ Contrast Date of Zia xam: 05/24/25 Exam# [id number] Ordering Dr: Lisset Gunderson DO PROCEDURE: CTA [...] RIGHT Vertebral: Unremarkable. LEFT Vertebral: Unremarkable. Anatomy: [place] anatomy is normal. Aneurysm or [...] arteries. No significant stenosis seen. Reading Location: [place] [address] CC: Dr. Lisset Barrera DO; Dr. Lisset Saldivar DO ~ Bakery Deliverer: Signed [facility]07-10-2025 Consult note [facility] Medical Records Department [address] [place] [address] Consultation - Neurology 05/24/25 1253 MR#: [id number] Acct: [id number] Name: LISSET FARMER Rep #:[id number] 1 : 1950 75 From: Khadra Cabezas MD PCP: Dr. Lisset Barrera, DO Status:ADM IN Location: [place] [address] Assessment and Plan: Stroke Assessment/Plan LISSET FARMER [...] mls @ 15 mls/hr 05/22/25 22:20 IV .[id number] PRN Saline Flush Sodium Chloride 250 mls @ 15 mls/hr 05/22/25 22:20 IV .[id number] PRN Additional IVPB Infusion Melatonin 3 mg [...] applicable): CC: Dr. Lisset Barrera, ~ Signed [facility]07-09-2025 Progress note Author Lisset [place] [facility] Note Date/Time May 23, 2025 6:23p m [facility] Medical Records Department [address] [place] [address] Progress Note - Hospitalist 05/23/25 1818 MR#: [id number] Acct: [id number] Name: LISSET FARMER Rep #:[id number] 8 : 1950 75 From: Lisset Saldivar DO PCP: Dr. Lisset Barrera DO Status:ADM IN Location: [place] [address] Reason for Visit Reason for Visit: Diagnoses [...] (Auto) 78.5 H, Lymph % (Auto) 12.8 L,[place] % (Auto) 7.3, Eos % (Auto) 0.6, [...] Clarity Clear, Urine pH 7.0, Ur Specific [place] 1.010, Urine Protein 15 H, Urine Glucose [...] loss and chronic microangiopathic changes. Reading Location: [facility] Chest X-Ray 05/22/25 18:15 IMPRESSION: Cardiomegaly. No evidence of acute pulmonary disease. No pleural effusions. Reading Location: [facility] Abdomen/Pelvis CT 05/22/25 21:02 IMPRESSION: No acute intra-abdominal process. Bilateral renal cysts. Cholelithiasis, no cholecystitis. 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 Fat-containing umbilical hernia. Findings in the axial skeleton most consistent with a metastatic process. [facility] 05/23/25 09:30 IMPRESSION: 1. [...] 4. Other findings as noted. Reading Location: [facility] Rhythm Strip Rhythm Strip: A-fib Rate: 133 [...] 35 minutes Charges/Coding Visit Charges Inpatient E&M: 22037 Subs Hosp L2 05/23/25 1823 <Electronically signed by Lisset Saldivar DO> Cosigner Signature (if applicable): CC: ~ Signed [facility] Work Phone: 1(478) 748-568807-09-2025 Progress note [facility] Medical Records Department [address] [place] [address] Progress Note - Hospitalist 05/23/25 1818 MR#: [id number] Acct: [id number] Name: MARILEELISSET PAREDES Rep #:[id number] 8 : 1950 75 From: Lisset Saldivar DO PCP: Dr. Lisset Barrera, Status:ADM IN Location: [place] [address] Reason for Visit Reason for Visit: Diagnoses [...] (Auto) 78.5 H, Lymph % (Auto) 12.8 L,[place] % (Auto) 7.3, Eos % (Auto) 0.6, [...] Clarity Clear, Urine pH 7.0, Ur Specific [place] 1.010, Urine Protein 15 H, Urine Glucose [...] loss and chronic microangiopathic changes. Reading Location: [facility] Chest X-Ray 05/22/25 18:15 IMPRESSION: Cardiomegaly. No evidence of acute pulmonary disease. No pleural effusions. Reading Location: [facility] Abdomen/Pelvis CT 05/22/25 21:02 IMPRESSION: No acute intra-abdominal process. Bilateral renal cysts. Cholelithiasis, no cholecystitis. 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 Fat-containing umbilical hernia. Findings in the axial skeleton most consistent with a metastatic process. Reading Location: [place] [address] Brain MRI 05/23/25 09:30 IMPRESSION: 1. Patchy [...] 4. Other findings as noted. Reading Location: [facility] Rhythm Strip Rhythm Strip: A-fib Rate: 133 [...] 35 minutes Charges/Coding Visit Charges Inpatient E&M: 02204 [facility] Hosp L2 05/23/25 1823 Cosigner Signature (if applicable): CC: ~ Signed [facility]07-09-2025 Discharge summary Author Nam aJimes [facility] Note Date/Time May 23, 2025 12:[address] [facility] Medical Records Department [address] [place] [address] Emergency Department Summary 05/22/25 MR#: [id number] Acct: [id number] Name: LISSET FARMER Rep #:[id number] 7 : 1950 75 From: Nam Jaimes MD PCP: Dr. Lisset Barrera, DO Status:ADM IN Location: [address] History of Present Illness Chief Complaint: [...] 1-2+ pitting edema both lower extremities. 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 Normal dorsi plantarflexion. No drift. Neurologically [...] 78.5 H Lymph % (Auto) 12.8 L [place] % (Auto) 7.3 Eos % (Auto) 0.6 [...] Clarity Clear Urine pH 7.0 Ur Specific [place] 1.010 Urine Protein 15 H Urine Glucose [...] loss and chronic microangiopathic changes. Reading Location: [facility] Chest X-Ray 05/22/25 18:15 IMPRESSION: Cardiomegaly. No evidence of acute pulmonary disease. No pleural effusions. Reading Location: [facility] Chest x-ray, 2 views, AP and lateral, interpreted by myself shows normal cardiacsilhouette. Normal mediastinum. No pneumonia. Chronic changes. No acute process. Rhythm Strip Rhythm Strip: A-fib Rate: 133 Ectopy: None EKG Initial EKG: Attestation: I personally reviewed and interpreted this EKG as follows: Interpretation: No Acute Injury Pattern and Atrial Fibrillation Comments: A-fib with RVR rate in 130s. No acute signs of [place] or ischemia. Critical Care Time Critical Care Time: Yes Critical care time (excluding procedures): 30-74 minutes, Including time spent:,Discussing w/Patient &/or Family/Roofer Helper V[employer] Coating, Discussing w/Consultants, ArrangingAdmission or Transfer, Performing Direct Patient Care at Bedside and - (35 minutes.) Discharge Plan Dx/Rx/DC Orders Clinical Impression: Altered level of consciousness, Atrial fibrillation with rapid ventricular response Disposition Disposition: [facility] Care [facility] What to do if you have Problems For any increased pain, shortness of breath, bleeding, nausea or vomiting, chestpain, or any unexpected problems, contact your Primary Care Provider. Call [facility] ([phone]) or report to the closest Emergency Room. Call 911 if necessary. 05/23/25 0009 <Electronically signed by Nam Jaimes MD> Cosigner Signature (if applicable): CC: Dr. Lisset Barrera, DO ~ Signed [facility] Work Phone: 1(274) 453-123007-09-2025 History and physical note Author Jonn Adams [facility] Note Date/Time May 22, 2025 11:[address] [facility] Medical Records Department [address] [place] [address] H&P Exam - Hospitalist 05/22/251945 MR#: [id number] Acct: [id number] Name: LISSET FARMER Rep #:[id number] 0 : 1950 75 From: Jonn ross DO PCP: Dr. Lisset Barrera DO Status:ADM IN Location: [facility] [id number] HPI - General General Date of Admission: 05/22/25 Date of Service: 05/22/25 Chief Complaint: Altered mental status, A-fib with RVR HPI Narrative LISSET FARMER, is a 75 [address] to [facility] on 05/22/2025 with altered mental status. [...] noted. Will be admitted for further management. [facility] Medical History Prostate cancer Elevated PSA [...] (Auto) 78.5 H, Lymph % (Auto) 12.8 L,[place] % (Auto) 7.3, Eos % (Auto) 0.6, [...] Clarity Clear, Urine pH 7.0, Ur Specific [place] 1.010, Urine Protein 15 H, Urine Glucose [...] loss and chronic microangiopathic changes. Reading Location: [facility] Chest X-Ray 05/22/25 18:15 IMPRESSION: Cardiomegaly. No evidence of acute pulmonary disease. No pleural effusions. Reading Location: [facility] Assessment & Plan Assessment/Plan (1) Altered mental status: (2) Atrial fibrillation with rapid ventricular response: PLAN: Plan Patient is a 75-year-old male who presented to [facility] ED on 05/22/2025 with confusion and [...] 75 minutes. Charges/Coding Visit Charges Inpatient E&M: 48915 Init Hosp L3 05/22/25 2351 <Electronically signed by Jonn Adams DO> Cosigner Signature (if applicable): CC: Dr. Jonn Adams DO; Dr. Lisset Barrera DO~ Signed [facility] Work Phone: 1(276) 835-538907-09-2025 Discharge summary [facility] Medical Records Department [address] [place] [address] Emergency Department Summary 05/22/25 MR#: [id number] Acct: [id number] Name: LISSET FARMER Rep #:[id number] 7 : 1950 75 From: Nam Jaimes MD PCP: Dr. Lisset Barrera DO Status:ADM IN Location: [place] [id number]- 1 HPI History of Present Illness Chief [...] 1-2+ pitting edema both lower extremities. 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 Normal dorsi plantarflexion. No drift. Neurologically [...] 78.5 H Lymph % (Auto) 12.8 L [place] % (Auto) 7.3 Eos % (Auto) 0.6 [...] Clarity Clear Urine pH 7.0 Ur Specific [place] 1.010 Urine Protein 15 H Urine Glucose [...] loss and chronic microangiopathic changes. Reading Location: [facility] Chest X-Ray 05/22/25 18:15 IMPRESSION: Cardiomegaly. No evidence of acute pulmonary disease. No pleural effusions. Reading Location: [facility] Chest x-ray, 2 views, AP and lateral, interpreted by myself shows normal cardiacsilhouette. Normal mediastinum. No pneumonia. Chronic changes. No acute process. Rhythm Strip Rhythm Strip: A-fib Rate: 133 Ectopy: None EKG Initial EKG: Attestation: I personally reviewed and interpreted this EKG as follows: Interpretation: No Acute Injury Pattern and Atrial Fibrillation Comments: A-fib with RVR rate in 130s. No acute signs of [place] or ischemia. Critical Care Time Critical Care Time: Yes Critical care time (excluding procedures): 30-74 minutes, Including time spent:,Discussing w/Patient &/or Family/Roofer Helper Vinyl Coating, Discussing w/Consultants, ArrangingAdmission or Transfer, Performing Direct Patient Care at Bedside and - (35 minutes.) Discharge Plan Dx/Rx/DC Orders Clinical Impression: Altered level of consciousness, Atrial fibrillation with rapid ventricular response Disposition Disposition: [facility] What to do if you have Problems For any increased pain, shortness of breath, bleeding, nausea or vomiting, chestpain, or any unexpected problems, contact your Primary Care Provider. Call [facility] ([phone]) or report tothe closest Emergency Room. Call 911 if necessary. 05/23/25 0009 Cosigner Signature (if applicable): CC: Dr. Lisset Barrera, DO ~ Signed [facility]07-08-2025 History and physical note [facility] Medical Records Department [address] [place] [address] H&P Exam - Hospitalist 05/22/251945 MR#: [id number] Acct: [id number] Name: LISSET FARMER Rep #:[id number] 0 : 1950 75 From: Jonn ross DO PCP: Dr. Lisset Barrera, Status:ADM IN Location: [place] [id number] 1 HPI - General General Date of Admission: 05/22/25 Date of Service: 05/22/25 Chief Complaint: Altered mental status, A-fib with RVR HPI Narrative LISSET AFRMER, is a 75 [address] to [facility] on 05/22/2025 with altered mental status. [...] noted. Will be admitted for further management. [facility] Medical History Prostate cancer Elevated PSA [...] (Auto) 78.5 H, Lymph % (Auto) 12.8 L,[place] % (Auto) 7.3, Eos % (Auto) 0.6, [...] Clarity Clear, Urine pH 7.0, Ur Specific [place] 1.010, Urine Protein 15 H, Urine Glucose [...] loss and chronic microangiopathic changes. Reading Location: [facility] Chest X-Ray 05/22/25 18:15 IMPRESSION: Cardiomegaly. No evidence of acute pulmonary disease. No pleural effusions. Reading Location: [facility] Assessment & Plan Assessment/Plan (1) Altered mental status: (2) Atrial fibrillation with rapid ventricular response: PLAN: Plan Patient is a 75-year-old male who presented to [facility] ED on 05/22/2025 with confusion and [...] 75 minutes. Charges/Coding Visit Charges Inpatient E&M: 88927 Init Hosp L3 05/22/25 2351 Cosigner Signature (if applicable): CC: Dr. Jonn Adams, DO; Dr. Lisset Barrera, DO~ Signed [facility]07-08-2025 Radiology Diagnostic study note [facility] Imaging Services [address] [place] [address] Abdomen/Pelvis W IV Cont ONLY MR#: [id number] Acct: [id number] Name: LISSET FARMER Rep #: [id number] 5 : 1950 M 75 From: Abb luciano Monroe MD PCP: Dr. Lisset Barrera, Status: ADM IN Study:Abdomen/Pelvis W IV Cont ONLY Date of E xam: 05/22/25 Exam# [id number] Ordering Dr: Jonn Isabel DO PROCEDURE: ABDOMEN/PELVIS [...] consistent with a metastatic process. [facility] CC: Dr. Jonn Adams DO; Dr. Lisset Barrera DO ~ Bakery Deliverer: Signed [facility]07-08-2025 Radiology Diagnostic study note [facility] Imaging Services [address] [place], [place] [address] Chest PA and Lateral MR#: [id number] Acct: [id number] Name: LISSET FARMER Rep #: [id number] 0 : 1950 M 75 From: Beny Petit MD PCP: Dr. Lisset Barrera DO Status: REG ER Study:Chest PA and Lateral Date of Exam: 05/22/25 Exam# [id number] Ordering Dr: Mellissa Jaimes MD PROCEDURE: CHEST [...] pulmonary disease. No pleural effusions. Reading Location: [id number] CC: Dr. Nam Jaimes MD; Dr. Lisset Barrera DO ~ Bakery Deliverer: Signed [facility]07-08-2025 Radiology Diagnostic study note [facility] Imaging Services [address] [place], [place] [id number] Brain/Head without Contrast MR#: [id number] Acct: [id number] Name: LISSET FARMER Rep #: [id number] : 1950 M 75 From: Bney Petit MD PCP: Dr. Lisset Barrera DO Status: REG ER Study:Brain/Head without Contrast Date of Exa m: 05/22/25 Exam# [id number] Ordering Dr: Mellissa Jaimes MD PROCEDURE: BRAIN/HEAD [...] loss and chronic microangiopathic changes. Reading Location: [facility] CC: Dr. Nam Jaimes MD; Dr. Lisset Barrera DO ~ Bakery Deliverer: Signed [facility]06-25-2025 Discharge summary [facility] Medical Records Department [address] [place] [id number] Emergency Department Summary 05/09/25 MR#: [id number] Acct: [id number] Name: LISSET FARMER Rep #:[id number] : 1950 75 From: Steven Hurst [...] cardiopulmonaryprocesses. Called and discussed case with on-call machine design checker Dr. Echavarria who states that the patient [...] 71.8 H Lymph % (Auto) 16.0 L [place] % (Auto) 8.2 Eos % (Auto) 2.8 [...] acute osseous process is seen. Reading Location: [place] [address] Discharge Plan Triage Chief Complaint: Palpitations ED [...] have a head bleed. Follow-up with the machine design checker that you referred to. Return with worsening symptoms or concerns Print Language: Swazi Disposition Disposition: Home, Self Care What to do if you have Problems For any increased pain, shortness of breath, bleeding, nausea or vomiting, chestpain, or any unexpected problems, contact your Primary Care Provider. Call [facility] ([phone]) or report tothe closest Emergency Room. Call 911 if necessary. 05/09/25 1420 Cosigner Signature (if applicable): CC: Dr. Lisset Barrera DO ~ Signed [facility]06-25-2025 Discharge summary Author Steven Hurst [facility] Note Date/Time May 09, 2025 2:[address] [facility] Medical Records Department [address] [place] [address] Emergency Department Summary 05/09/25 MR#: [id number] Acct: [id number] Name: LISSET FARMER Rep #:[id number] : 1950 75 From: Steven Hurst [...] no complaints at this point in time. [facility] Medical History Prostate cancer Elevated PSA Kidney [...] processes. Called and discussed case with on-call machine design checker Dr. Echavarria who states that the patient [...] 71.8 H Lymph % (Auto) 16.0 L [place] % (Auto) 8.2 Eos % (Auto) 2.8 [...] acute osseous process is seen. Reading Location: [place] [address] Discharge Plan Triage Chief Complaint: Palpitations ED [...] have a head bleed. Follow-up with the machine design checker that you referred to. Return with worsening symptoms or concerns Print Language: Swazi Disposition Disposition: Home, Self Care What to do if you have Problems For any increased pain, shortness of breath, bleeding, nausea or vomiting, chestpain, or any unexpected problems, contact your Primary Care Provider. Call [facility] ([phone]) or report to the closest Emergency Room. Call 911 if necessary. 05/09/25 1420 <Electronically signed by Steven Hurst DO> Cosigner Signature (if applicable): CC: Dr. Lisset Barrera DO ~ Signed [facility] Work Phone: 1(578) 480-608506-25-2025 Radiology Diagnostic study note [facility] Imaging Services [address] [place] [address] Chest 1 View (Portable) MR#: [id number] Acct: [id number] Name: LISSET FARMER Rep #: [id number] : 1950 M 75 From: Jovon Angela MD PCP: Dr. Lisset Barrera DO Status: PRE ER Study:Chest 1 View (Portable) Date of Exam: 05/09/25 Exam# [id number] Ordering Dr: Valentino Hurst DO PROCEDURE: CHEST [...] acute osseous process is seen. Reading Location: [place] [address] CC: Dr. Lisset Barrera DO; Dr. Steven Hurst DO ~ Bakery Deliverer: Signed [facility]06-25-2025 Evaluation note* Diagnosis Onset Date Resolution Status Admit Date Irregular heart rhythm acute [facility] 2024 8:50am Obesity chronic May 09 8:50am KATHY (obstructive sleep apnea) chroni c May 09, 2025 8:50am [facility] Work Phone: 1(324) 768-534806-25-2025 Evaluation note* Diagnosis Onset Date Resolution Status Admit Date Irregular heart rhythm acute [facility] 2024 8:50am Obesity chronic May 09 8:50am KATHY (obstructive sleep apnea) chroni c May 09, 2025 8:50am Altered level of consciousness acute May 22, 2025 7:47pm Atrial fibrillation with rap id ventricular response acute May 22, 7:47pm [facility] Work Phone: 1(483) 346-121106-25-2025 Evaluation note* Diagnosis Onset Date Resolution Status Admit Date Irregular heart rhythm acute 2024 8:50am Obesity chronic May 09 8:50am KATHY (obstructive sleep apnea) chroni c May 09, 2025 8:50am Altered level of consciousness acute May 22, 2025 7:47pm Altered mental status acute May 7:47pm Atrial fibrillation with rap id ventricular response acute May 22, 7:47pm Ischemic stroke acute May 22, 2025 7:47pm [facility] Work Phone: Evaluation note* Diagnosis Onset [...] node chronic Prostate cancer metastatic to bone [facility] Work Phone: Evaluation note* Diagnosis Onset [...] node chronic Prostate cancer metastatic to bone [facility] Work Phone: Evaluation note* Diagnosis Onset [...] node chronic Prostate cancer metastatic to bone [facility] Work Phone: Evaluation note* Diagnosis Onset Date Resolution Status Obesity chronic KATHY (obstructive sleep apnea) chronic [facility] Work Phone: Evaluation note* Diagnosis Onset Date Resolution Status Admit Date Irregular heart rhythm acute Ju 2024 8:50am [facility] Work Phone: Reason for referral (narrative)No reason for referral [facility] Work Phone: Chief Complaint and Reason for Visit Chief Complaint CC RESULTS TO DR MARI Iqbal 1 Y FU ONC/HEM PROSTATE CANCER [...] No June 01, 2019 12:43pm Power of Employment Attorney No June 01 9 12:43pm Advance Directive Response Recorded Date/ Time Advance Directives on File No June 01, 2019 12:43pm Advance Directives No June 01 12:43pm Living Will No June 01, 2019 12:43pm Power of Employment Attorney No June 01 9 12:43pm Advance Directive Response Recorded Date/ Time Living Will No June 01, 2019 12:43pm Do you have a Healthcare Power of Employment Attorney? No June 01, 2019 12:43pm Advance Directives No June 01 12:43pm Advance Directive Response Recorded Date/ Time Living Will No June 01, 2019 12:43pm Do you have a Healthcare Power of Employment Attorney? No June 01, 2019 12:43pm Do you have a Healthcare Power of Employment Attorney? No May 09, 2025 10:16am Advance Directives No June 01 12:43pm Advance Directive Response Recorded Date/ Time Living Will No June 01, 2019 12:43pm Do you have a Healthcare Power of Employment Attorney? No June 01, 2019 12:43pm Do you have a Healthcare Power of Employment Attorney? No May 09, 2025 10:16am Do you have a Healthcare Power of Employment Attorney? No May 22, 2025 5:31pm Advance Directives No June 01 12:43pm Advance Directive Response Recorded Date/ Time Living Will No June 01, 2019 12:43pm Do you have a Healthcare Power of Employment Attorney? No June 01, 2019 12:43pm Do you have a Healthcare Power of Employment Attorney? No May 09, 2025 10:16am Do you have a Healthcare Power of Employment Attorney? No May 22, 2025 10:17pm Advance Directives [...] DO Primary Care Provider Active Pastora Hunt POND SCALER-C Attending Provider, Referrin g Provider Active Team [...] End: May 09, 2025 Janessa Zamora NP, POND SCALER-C Attending Provider Active Start: May 09, 2025 [...] 2025 End: May 09, 2025 Janessa Zamora POND SCALER, POND SCALER-C Attending Provider Active Start: May 09, 2025 [...] section and content) DATE CREATED AUTHOR 05/27/2025 [facility] FOR RECORDS PERTAINING TO PATIENTS WHO [...] BE BASED ON THE PRIMARY CLINICAL RECORDS. [facility] [employer] provides no warranty or guarantee of the accuracy or completeness of information in this document.
[2025-05-27 15:59] VITALS: BMI 31.4
[2025-05-27 16:08] VITALS: BP 139/96; PULSE 76; RESP 18; TEMP 36.6; O2SAT 96; BMI 31.4
[2025-05-27 16:37] VITALS: O2SAT 96
[2025-05-27 17:59] VITALS: BP 113/72; PULSE 72; RESP 18; TEMP 37; O2SAT 100
[2025-05-27 22:00] VITALS: O2SAT 97
[2025-05-27 23:25] VITALS: BP 120/92; PULSE 67; RESP 17; TEMP 36.7; O2SAT 97
[2025-05-27] MEDS: APIXABAN 5 MG TABLET PO (23:30)
[2025-05-27 23:31] VITALS: BP 120/92; PULSE 67
[2025-05-27] MEDS: Senna/Docusate Sodium 1 Tablet 2 TABLET PO (23:31)
[2025-05-28 06:00] VITALS: BP 144/57; PULSE 54; RESP 17; TEMP 36.7; O2SAT 94
[2025-05-28 06:44] LABS: Magnesium 2.2 mg/dL (1.5-2.2)
[2025-05-28 06:45] LABS: Anion Gap 11 (5-15); BUN 28 mg/dL (4-19); BUN/Creat Ratio 23.0 RATIO (10-20); Calcium,Total 9.3 mg/dL (7.6-11.0); Carbon Dioxide 25.7 mmol/L (21.0-32.0); Chloride 105 mmol/L (98-108); Estimated Creatinine Clearance 62.54 ml/min (50-250); Glucose 112 mg/dL (70-99); Potassium 3.9 mmol/L (3.3-5.1)
[2025-05-28 07:43] LABS: Red Blood Count 4.24 M/mm3 (4.6-6.2); White Blood Count 6.1 K/mm3 (4.4-11.0)
[2025-05-28 07:44] LABS: Hematocrit 37.6 % (40-54); Hemoglobin 12.6 g/dL (13.0-16.5); Mean Corp Hgb Conc 33.5 g/dL (32-36); Mean Corpuscular Volume 88.7 fL (80-94); Platelet Count 177 K/mm3 (150-450); RBC Distribution Width CV 14.7 % (11.6-14.6); RBC Distribution Width SD 47.6 fl (35.1-43.9)
[2025-05-28 07:45] LABS: Immature Granulocytes Count 0.020 X10^3/uL (0.0-0.0)
[2025-05-28 07:46] LABS: Mean Platelet Vol. 11.8 fl (6.2-12.0)
[2025-05-28 08:29] VITALS: BP 144/57; PULSE 60
[2025-05-28] MEDS: APIXABAN 5 MG TABLET PO ×2 (08:29→20:11)
[2025-05-28] MEDS: Senna/Docusate Sodium 1 Tablet 2 TABLET PO (08:30)
--- NOTE | 2025-05-28 08:56 | HP.PCM_ITS ---
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 Denis/Dr. Guzman), nephrolithiasis, obstructive sleep apnea, fatty infiltration of the liver, history of hairy cell leukemia (in remission), obesity, hypertension, obstructive sleep apnea and new onset PAF (was noted on 05/09/25 when he was seen for his pulmonary F/U and was sent to the ED and started on Eliquis) who presented to the emergency department at [facility] on 05/22/2025 with complaints of altered mental status. He was in AF with a HR of 130-140 at presentation to ED. He had not yet picked up the RX for Eliquis. Noncontrast CT brain was unremarkable. Chest x-ray per radiologist showed cardiomegaly with no evidence of acute pulmonary disease and no pleural effusions. Showed an elevated creatinine at 1.26. Hemoglobin A1c was elevated at 6.2. BNP was 4303. LDL was 99 and the HDL was 43. Triglycerides were normal. He had a TSH checked on 05/09/2025 and it was within normal limits. He was admitted to the hospitalist service and maintained on the Cardizem drip. Lopressor was increased from 50 mg daily to 50 mg twice daily. He was started on Eliquis. Lasix 20 mg IV twice daily was ordered. A transthoracic echocardiogram showed mild concentric left ventricular hypertrophy with an ejection fraction of 55%. There were no wall motion abnormalities. The right ventricle was normal in size and function. There was no atrial enlargement. There was no significant valvular heart disease and a bubble study was not done. MRI of the brain showed patchy gyriform diffusion restriction in the right parietal lobe posteriorly. There were no foci of abnormal intracranial contrast enhancement to suggest metastatic disease. Subsequent to the findings on the MRI a CTA of the head and neck was ordered. This showed minimal plaque at the origin of the right and left internal carotid arteries with no significant stenosis. There were no aneurysms and no large vascular malformations noted. While in the hospital a CT scan of the abd and pelvis was ordered, presumably to assess for Prostate CA progression. The CT scan showed no acute intra-abdominal process. There were bilateral renal cysts and cholelithiasis present. There was a splenic calcification and a fat-containing umbilical hernia. There were findings in the axial skeleton consistent with a metastatic process. Bone scan in 2021 showed no evidence of metastatic disease. He last saw Dr. Denis in July of 2024. In July 2024 the PSA was 4.26. In November it was 19.6 and in February it was 35. PSA at admission to the hospital is now up to 49.7. Lisset was transferred to the acute inpatient rehab unit at [facility] on 05/27/2025 for 3 hours of therapy daily to restore function/independence at or near his level prior to recent stroke. Lisset was living by himself and was independent with all ADL's. All documentation from his hospital stay was personally reviewed as well as med list at [place]. Afebrile Heart rate has ranged from 54-76 since admission to acute rehab. The blood pressure has ranged from 113/72 to 144/57. He is taking apixaban 5 mg twice daily, atorvastatin 40 mg nightly, metoprolol tartrate 25 mg twice daily and Lasix 40 mg daily. Postvoid residual x 1 is 26. All lab from this morning was personally reviewed. White blood cell count is normal at 6.1. Hemoglobin is 12.6 with normochromic normocytic indices. RDW is mildly elevated. Sodium is 141 and the potassium is 3.9. The BUN is up to 28 and the creatinine is 1.22. Magnesium is 2.2 and phosphorus and calcium are within normal limits. LFTs were normal on 05/22/2025. [facility] Medical History (Updated 05/28/25 @ 10:[address] 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 Cholelithiasis Renal cyst Nephrolithiasis Non-smoker Hematuria Pancytopenia High risk medication use KATHY (obstructive sleep apnea) Fatty liver disease Agranulocytosis secondary to cancer chemotherapy Drug induced neutropenia Hairy cell leukemia Obesity Hypertension Home Medications ?Medication ?Instructions ?Recorded ?Last Taken ?Type apixaban 5 mg tablet (Eliquis) 5 mg PO BID Blood thinn er 30 days 05/09/25 05/27/25 Rx #60 tabs acetaminophen 325 mg tablet 650 mg (2 x 325 mg) PO Q6H PRN PRN 05/27/25 Unknown Rx Pain 1-10 Or Fever>100.7 #0 tabs atorvastatin 40 mg tablet 40 mg PO QHS Cholestrol #0 t abs 05/27/25 05/26/25 Rx furosemide 40 mg tablet (Lasix) 40 mg PO DAILY Fluid r etention #1 05/27/25 Unknown Rx TAB metoprolol tartrate 25 mg tablet 25 mg PO BID BP #0 ta bs 05/27/25 05/27/25 Rx Allergy/AdvReac Type Severity Reaction Status Date / Time sulfamethoxazole (From AdvReac Intermediate Rash Verified 05/22/25 17:07 Bactrim) trimethoprim (From Bactrim) AdvReac Intermediate Rash Verified 05/22/25 17:07 Family History Mother Hypertension CVA (cerebral vascular accident) Breast cancer Sister CVA (cerebral vascular accident) Surgical History History of prostate biopsy Basal cell carcinoma of nose Social History (Updated 05/28/25 @ 10:[address] Kaylah Garcia DO) household members: none housing: house number of children: 3 Smoking Status: Never smoker second hand exposure: No alcohol intake: never substance use type: does not use ROS Review of Systems ROS Unobtainable: Denies due to encephalopathy, due to endotracheal tube, due to mental condition or due to mental status Constitutional Constitutional: Reports other Details: I suspect he has been falling at home.......multiple abrasions and areas of bruising. Can not tell me what was happening at home recently. ; Denies anorexia, change in weight, chills, fatigue, fever(s), night sweats or weakness Eyes Eyes: Reports requires corrective lenses; Denies blurry vision, change in vision, diplopia, discharge from eye(s), eye pain, loss of vision or tearing ENT HEENT: Denies abnormal hearing, dysphagia, headache(s), hearing loss, nasal congestion or sore throat Cardiovascular Cardiovascular: Denies chest pain, dyspnea on exertion, edema, lightheadedness, orthopnea, palpitations, paroxysmal nocturnal dyspnea or syncope Respiratory/Chest Respiratory/Chest: Denies cough, dyspnea, shortness of breath at rest, shortness of breath with exertion or wheezing Gastrointestinal Gastrointestinal: Denies abdominal pain, constipation, diarrhea, dyspepsia, hematemesis, hematochezia, nausea or vomiting Genitourinary Genitourinary: Denies dysuria, hematuria, nocturia, urinary frequency, urinary hesitancy, urinary incontinence or urinary urgency Musculoskeletal Musculoskeletal: Reports other Details: Denies any bone pain. Has mets in the axial skeleton on CT of the abd. ; Denies back pain, joint pain, joint swelling or neck pain Integumentary Integumentary: Reports wounds and other Details: areas of ecchymosis ; Denies jaundice Neurologic Neurologic: Reports confusion and focal weakness; Denies disequilibrium, dizziness, headache(s), paresthesias, seizures, tremor(s) or vertigo Psychiatric Psychiatric: Denies anxiety, depression, homicidal ideation or suicidal ideation Endocrine Endocrinology: Denies change in body appearance, polydipsia or polyuria Hematologic/Lymphatic Hematologic/Lymphatic: Denies easy bleeding, easy bruising or lymphadenopathy Allergic/Immunologic Allergic/Immunologic: Denies rhinitis, eczemia or asthma Vital Signs Vital Signs Vital Signs: 05/27/25 16:08 05/27/25 16:37 05/27/25 17:59 Temperature 97.8 F 98.6 F Temperature Source Temporal Temporal Pulse Rate 76 72 Respiratory Rate 18 18 Respiratory Effort Normal Non-Labored Respiratory Depth Normal Respiratory Pattern Normal Blood Pressure 139/96 H 113/72 Blood Pressure Mean 110 85 Blood Pressure Source Monitor Monitor Blood Pressure Position Semi-Fowlers Semi-Fowlers Blood Pressure Location Left Arm Right Arm Pulse Ox 96 96 100 Oxygen Delivery Method Room Air Room Air Room Air 05/27/25 22:00 05/27/25 23:25 05/27/25 23:31 Temperature 98.1 F Temperature Source Oral Pulse Rate 67 67 Respiratory Rate 17 Respiratory Effort Normal Non-Labored Respiratory Depth Respiratory Pattern Blood Pressure 120/92 H 120/92 H Blood Pressure Mean 101 Blood Pressure Source Monitor Blood Pressure Position Supine Blood Pressure Location Left Arm Pulse Ox 97 97 Oxygen Delivery Method Room Air Room Air 05/28/25 06:00 05/28/25 08:29 Temperature 98.0 F Temperature Source Oral Pulse Rate 54 L 60 Respiratory Rate 17 Respiratory Effort Respiratory Depth Respiratory Pattern Blood Pressure 144/57 H 144/57 H Blood Pressure Mean 86 Blood Pressure Source Monitor Blood Pressure Position Supine Blood Pressure Location Left Arm Pulse Ox 94 Oxygen Delivery Method Bi-pap Weight Weight: 224 lb 6.995 oz Body Mass Index (BMI) 31.4 Indicators for Scoring Admitted with or Primary Diagnosis of CVA/Stroke: Yes Hx of CVA/Stroke: Yes Modified Rani Score MRS Score at time of Evaluation: 1-No significant disability (Physically he is doing well but, cognitively he is confused and would not be able to go home without 24/7 supervision. ) NIHSS NIHSS 1a. Level of Consciousness: 0 - Alert; keenly responsive 1b. LOC Questions: 0 - Answers BOTH questions correctly 1c. LOC Commands: 0 - Performs BOTH tasks correctly 2. Best Gaze: 0 - Normal 3. Visual: 0 - No visual loss 4. Facial Palsy: 1 - Minor paralysis (flattened nasolabial fold, asymmetry on smiling) 5a. Left Arm: 0 - No drift; arm holds 90 (or 45) degrees for full 10 seconds 5b. Right Arm: 0 - No drift; arm holds 90 (or 45) degrees for full 10 seconds 6a. Left Le - Drift; leg falls by the end of 5-seconds, but does not hit bed 6b. Right Le - No drift; leg holds 30-degree position for full 5 seconds 7. Limb Ataxia: 0 - Absent 8. Sensory: 0 - Normal; no sensory loss 9. Best Language: 1 - Cwxg-up-mhryobkb aphasia; (some trouble with word finding. ) 10. Dysarthria: 0 - Normal 11. Extinction and Inattention: 0 - No abnormality Total: 3 Physical Exam Const alert, oriented x3 and no apparent distress Constitutional Narrative: Lying in bed when I entered the room. Denied pain. Tells me he slept well last night. Denies lightheadedness, CP, SOB. General Appearance: cooperative and comfortable HEENT normocephalic and head/scalp atraumatic HEENT Narrative: Dry mucous membranes. No evidence of thrush. Soft palate elevates symmetrically. Tongue protrudes on the midline. Eyes PERRL, EOMs intact bilaterally, conjunctivae normal and no scleral icterus Eyes Narrative: No discharge from the eyes. No ptosis. General Eye: normal appearance of both eyes Neck no lymphadenopathy, supple, no JVD and no carotid bruits Carotids: normal carotid upstroke Chest Chest: symmetrical chest wall rise Resp normal respiratory effort, no use of accessory muscles and clear to auscultation bilaterally Resp Narrative: Not tachypneic and no conversational dyspnea. Good effort. Cardio S1 normal heart sound, S2 normal heart sound, no murmurs, no rub and no gallops Cardio Narrative: Irregular irregular rhythm with controlled ventricular response. GI normal to inspection, nondistended, normoactive bowel sounds and non-tender GI Narrative: No guarding with palpation. no CVA tenderness Narrative: Postvoid residual x 1 was 26. Extremity no clubbing, cyanosis or edema and no calf tenderness Extremity Narrative: Negative Eddie's and John's signs. No pitting pretibial edema. Patchy hyperpigmentation of spots on his distal lower legs. Trace ankle edema. Skin Skin Narrative: No rashes. Multiple small injuries/scabs and areas of ecchymosis.......he does not recall if he has been falling or not. None look infected. Neuro Neuro Narrative: Confused. Having trouble with word finding at times. Trouble identifying some body parts......could tell me that I was touching him on the right but, not that I was touching his arm. When I touched both sides of the forehead he told me I was touching him in the middle. Could not name the stoplight and the bridge when I showed him pictures. He is R hand dominant. No visual field cuts. Very mild drift with the Left leg. No ataxia. No extinction. Smooth pursuits. No nystagmus. Tongue protrudes on the midline. Palate elevates symmetrically. Mild facial droop. No pronator drift. Motor Exam: strength 5/5 throughout Psych cooperative, denies hallucinations, denies homicidal ideation and denies suicidal ideation Psych Narrative: Pleasant. Affect is a little flat. Appearance: appropriate and well kempt Attitude: calm Activity / Motor Behavior: appropriate eye contact Results Lab / Micro Data 05/28/25 05:10 05/28/25 05:10 Labs: Laboratory Results - last 24 hr 05/28/25 05:10: WBC 6.1, RBC 4.24 L, Hgb 12.6 L, Hct 37.6 L, MCV 88.7, MCH 29.7, MCHC 33.5, RDW Std Deviation 47.6 H, RDW Coeff of Kristen 14.7 H, Plt Count 177, MPV 11.8, Immature Gran % (Auto) 0.300, Neut % (Auto) 64.6, Lymph % (Auto) 20.6, M kriss % (Auto) 10.1 H, Eos % (Auto) 3.4, Baso % (Auto) 1.0, Absolute Neuts (auto) 4.0, Absolute Lymphs (auto) 1.26, Sodium 141, Potassium 3.9, Chloride 105, Carbon Dioxide 25.7, Anion Gap 11, BUN 28 H, Creatinine 1.22 H, Estim Creat Clear Calc 62.54, Est GFR (MDRD) Non-Af 62, BUN/Creatinine Ratio 23.0 H, Glucose 112 H, Calcium 9.3, Phosphorus 3.8, Magnesium 2.2 Assessment & Plan Assessment/Plan (1) Debility: (2) Ischemic stroke: PLAN: Embolic. R parietal lobe....watershed appearance on MRI. 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 He received a RX in the ER on 05/09/25 but, never started the drug....unclear why. (7) Prostate cancer metastatic to bone: PLAN: Bone mets are new since 2021. Bone scan negative in 2021. Has not seen Dr. Denis since July of 2024. He is seen in Dr. Guzman's office every 3 months for infusion. PSA has increased from 4.26 in July 2024 to 49.7 currently. (8) KATHY (obstructive sleep apnea): PLAN: Has CPAP with him. Tells me he thinks he wears it most of the time.....he is confused. (9) Hypertension: QUALIFIERS: Hypertension type: essential hypertension Qualified Code(s): I10 - Essential (primary) hypertension (10) Rising PSA level: (11) Obesity: QUALIFIERS: Obesity type: due to excess calories Obesity severity: morbid Obesity classification: adult class 1 (BMI 30 - 34.9) Serious obesity comorbidity presence: with serious comorbidity Body mass index: BMI 33.0-33.9 Qualified Code(s): E66.811 - Obesity, class 1; E66.09 - Other obesity due to excess calories; Z68.33 - Body mass index [BMI] 33.0-33.9, adult (12) Prediabetes: PLAN: Advised weight loss and no concentrated sweet diet. PLAN: Plan PLAN PT for gait stability OT for ADL's ST for evaluation Analgesics as needed Bowel protocol Fall precautions Assess for Anxiety/Depression GI prophylaxis -not necessary at this time. He denies heartburn/nausea/vomiting/epigastric pain/history of peptic ulcer disease. DVT prophylaxis -will continue Eliquis 5 mg twice daily for atrial fibrillation/embolic CVA Follow up with PCP, neurology, Dr. Denis, Dr. Guzman, cardiology, pulmonary following DC from [facility] AM lab including CMP, CBC, Mag and Phos -all personally reviewed. Check a Hemoccult stool Overnight trending pulse ox when on CPAP......no O2 bleed in as OP Cognition is the biggest deficit at present. He lives alone and he would not be safe to go home alone. Charges/Coding Visit Charges Inpatient E&M: 35944 Init Hosp L3
[2025-05-28 09:34] VITALS: O2SAT 98
--- NOTE | 2025-05-28 10:48 | PCM.RU.PYE ---
Admission Information Primary Diagnosis:: Post stroke debility Status Changes from Prescreening?: No changes Identified Actual Problem List:: Falls, Skin Intergrity, Cognitve Impr/Memory Loss, Bladder Incontinence, Mobility Impaired, Self Care Deficit, Know.Dfct of Medicaitons, Diabetes, Hyperglycemia, BP, Hypertension, Fluid Overload r/t CHF and Alteration-Leisure Activ. Potential Problem List:: DVT, Bleeding, Infection, UTI, Aspiration, Falls, Skin Integrity and Depression Risk of Complications DVT: FELIBERTO Hose and - (Apixaban 5 mg p.o. twice daily) Bleeding: Monitor Lab Values, Nursing to Teach Precautions for anti-coagulation therapy., Wound, if applicable, to be assessed every shift. and Stroke patients assessed for lethargy or change in status. Infection: Clinical Staff to Monitor for S/S of infection: and S/S of infection include fever, redness, warmth, etc. Urinary Tract Infection: Monitor for frequency, burning, discomfort, or incontinence. and Nursing will obtain urine sample for urinalysis and C&S when ordered. Aspiration: Clinical staff will monitor for coughing, drooling, congestion., Speech will evaluate swallowing and dsyphasia. and Nursing will monitor patient swallowing during meals. Falls: Patient will be evaluated for Fall Precautions and Patient will be placed on Fall Precautions as indicated per protocol. Skin Breakdown: Nursing will assess skin daily using assessment tool. and Nursing will place on Skin Breakdown Precautions as indicated. Pain: Clinical staff will assess patient's pain level per protocol., Medications will be given, if needed, and the pain level reassessed. and Other methods: Massage, distraction, decrease stimulus, etc. used PRN. Plan of Care Patient requires physician specializing in physical medicine and rehab oversight to provide close medical supervision of rehab issues including: Pain Management, Sleep Problems, Bowel and Bladder, Medical and co-morbidity Management, DVT prophylaxis, Rehabilitation Leadership and Coordination of treatment team Patient needs Physical Therapy: For a minimum of 1 hour and At least 5 out of 7 days Patient needs Physical Therapy to improve:: Mobility, Strengthening, Transfers, Stretching, ROM, Endurance, Stairs, Gait and Balance Patient needs Occupational Therapy: For a minimum of 1 hour and At least 5 out of 7 days Patient needs Occupational Therapy to improve ADL's incl.: Eating, Grooming, Bathing, Dressing, Toileting, Toilet transfers, Community Reintegration, Higher functioning activities, Household tasks, Adaptive Equipment, Splinting and Other activities as determined Patient requires speech therapy: For a minimum of 1 hour and At least 5 out of 7 days Patient requires speech therapy for: Swallowing, Cognition, Language Skills and Compensatory Strategies Patient requires 24/ Rehabilitation Nursing for: Pain Issues, Identifying and preventing risk factors, Monitoring and reporting current medical conditions, Assisting with ambulation, transfer, and all ADL's, Teaching patients about disease process and medications, Family teaching, Providing safe environment, Bowel and Bladder Issues, Skin integrity and Medication Management Patient needs Raw Stock Dyeing Machine Tender/ Case Management for: Discharge Planning, Arranging Home Equipment or Services and Family Interventions Patient needs Dietary and Nutrition Services for: Adequate Nutrition, Nutritional Supplements and Nutritional Education Goals Goals Patient will remain: free from falls Patient will perform eating at: - (Independently) Patient will perform bed mobility at: - (Independently) Patient will complete transfers from bed to chair at: - (Independently) Patient will ambulate: - (Greater than 1000 feet independently on various surfaces with no assistive device) Patient will complete upper body dressing at: - (Independently) Patient will complete lower body dressing at: - (Independently) Patient will complete toilet transfer at: - (Independent) Patient will complete toileting at: - (Independent) Patient will perform bathing at: MOD I level of assist. (Upper body bathing independently and lower body bathing at mod I with adaptive equipment as needed.) Patient will perform Tub/Shower transfer at: - (Supervision for the first 1 to 2 weeks.) Patient will complete grooming at: - (Independently while standing at the sink.) Patient will complete home management skills at: MOD I level of assist. Patient will achieve: - (Ascend/descend 2 full flights of stairs carrying 10 pounds without upper extremity support independently) Patient will have pain level of: of 3 or less Patient's skin will: remain intact Patient will receive: adequate nutrition. Discharge Planning Pt Prognosis for Sig. Practical Improv. w/in Reasonable Time: Good Estimated Length of stay (days): 21 Anticipated D/C Destination: Home with Outpt Therapy Was Preadmission Assessment Accurate?: Yes
[2025-05-28 12:03] LABS: Mucous, Urine 0 SEEN /hpf (<or=2+)
[2025-05-28 12:16] LABS: Color, Urine Yellow (Yellow); Glucose, Dipstick Normal (Normal); Ketone-Dipstick Negative (Negative); Leukocyte Esterase-Dipstick Negative /ul (Negative); Nitrite-Dipstick Negative (Negative); Occult Blood-Urine 10 /ul (Negative); Protein-Dipstick 15 mg/dl (Negative); Specific Gravity, Urine 1.020 (1.002-1.030); Urine Bilirubin Dipstick Negative (Negative)
[2025-05-28 12:32] LABS: Red Blood Cells-Urine 0-5 SEEN /hpf (0-5); Squamous Epithelial Cells - UA 0-5 SEEN /hpf (0-5)
[2025-05-28 16:54] VITALS: BP 147/92; PULSE 64; RESP 17; TEMP 36.8; O2SAT 94
[2025-05-28 19:40] VITALS: BP 103/82; PULSE 77; RESP 17; O2SAT 94
[2025-05-28 20:10] VITALS: BP 103/82; PULSE 77
[2025-05-29] VITALS (7 sets, daily range): BP systolic 135–146; BP diastolic 85–95; PULSE 54–75; RESP 16–18; TEMP 36.1–36.8; O2SAT 94–96
[2025-05-29] MEDS: APIXABAN 5 MG TABLET PO ×2 (07:58→21:24)
[2025-05-29] MEDS: Senna/Docusate Sodium 1 Tablet 2 TABLET PO (07:58)
[2025-05-29] MEDS: 0.9% Saline Lock 10 ML Syringe IV (08:00)
--- NOTE | 2025-05-29 11:39 | PCM.PROGNOTE ---
Subjective Subjective Afebrile VSS -heart rate has ranged from 54-77 over the past 24 hours. Blood pressure has ranged from 103/82 to 149/95 (this AM) Maintaining appropriate oxygen saturation on RA Oral intake - FOOD good FLUIDS poor Postvoid residuals x 3 are all less than 70. Discussed with nursing - no problems that need addressed Reviewed the THERAPY notes -I reviewed the speech therapy evaluation done yesterday and he scored 25 out of a possible 50 on his BCAT. CTM score was 15 out of a possible 30 indicating relatively high risk for cognitively related functional deficits. Medication list reviewed. UA negative for infection. Abel denies cephalgia, lightheadedness, chest pain, shortness of breath, palpitations, nausea/vomiting/abdominal pain, dysuria and calf tenderness. He knows he is in [facility] but, can not tell me today why he is here. Tells me that he feels fine. I once again told him he is on rehab because he had a stroke. We also discussed the elevation in the PSA from 4.26 in July 2024 to 49 this admission. Now has mets in the axial skeleton. Objective Data Objective Data Vital Signs: Vital Signs Temp Pulse Resp BP Pulse Ox O2 Del Method 97.2 F L 74 18 146/95 H 95 Room Air 05/29/25 06:00 05/29/25 08:03 05/29/25 08:03 05/29/25 06:00 05/29/25 08:03 05/29/25 08:03 Oxygen Delivery Method Room Air Weight: 224 lb 6.889 oz Body Mass Index (BMI) 31.4 Intake & Output: Intake and Output for Last 24 Hours 05/27/25 05/28/25 05/29/25 23:59 23:59 23:59 Intake Total 240 / 240 940 / 940 700 / 700 Output Total 120 / 120 950 / 950 Balance 120 / 120 -10 / -10 700 / 700 Lab / Micro Data 05/28/25 05:10 05/28/25 05:10 Labs: Laboratory Results - last 24 hr 05/28/25 11:40: Urine Color Yellow, Urine Clarity Clear, Urine pH 6.0, Ur Specific [facility] 1.020, Urine Protein 15 H, Urine Glucose (UA) Normal, Urine Ketones Negative, Urine Occult Blood 10 H, Urine Nitrite Negative, Urine Bilirubin Negative, Urine Urobilinogen Normal, Ur Leukocyte Esterase Negative, Urine RBC 0-5 SEEN, Urine WBC 0 SEEN, Ur Squamous Epith Cells 0-5 SEEN, Urine Bacteria 0 SEEN, Urine Mucus 0 SEEN Micro: Microbiology 05/28/25 11:45 Stool Stool Occult Blood (LAURA) - Final Occult Blood Positive Physical Exam Const alert Constitutional Narrative: Oriented to month and place and person. General Appearance: cooperative Resp normal respiratory effort, no use of accessory muscles and clear to auscultation bilaterally Resp Narrative: Not tachypneic and no conversational dyspnea. Good effort. Cardio S1 normal heart sound, S2 normal heart sound, no murmurs, no rub and no gallops Cardio Narrative: rhythm today is regular. GI normal to inspection, nondistended, normoactive bowel sounds and non-tender GI Narrative: No guarding with palpation. no CVA tenderness Extremity no calf tenderness General Extremity: Negative for edema Skin Skin Narrative: No rashes. Multiple small injuries/scabs and areas of ecchymosis.......he does not recall if he has been falling or not. None look infected. Rashes: no rashes Neuro Motor Exam: strength 5/5 throughout Psych cooperative, denies hallucinations, denies homicidal ideation and denies suicidal ideation Psych Narrative: Pleasant. Affect is a little flat. Appearance: appropriate and well kempt Attitude: calm Activity / Motor Behavior: appropriate eye contact Assessment & Plan Assessment/Plan (1) Debility: (2) Ischemic stroke: PLAN: Embolic. R parietal lobe....watershed appearance on MRI. 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 He received a RX in the ER on 05/09/25 but, never started the drug....unclear why. (7) Prostate cancer metastatic to bone: PLAN: Bone mets are new since 2021. Bone scan negative in 2021. Has not seen Dr. Denis since July of 2024. He is seen in Dr. Guzman's office every 3 months for infusion. PSA has increased from 4.26 in July 2024 to 49.7 currently. (8) KATHY (obstructive sleep apnea): PLAN: Has CPAP with him. Tells me he thinks he wears it most of the time.....he is confused. (9) Hypertension: QUALIFIERS: Hypertension type: essential hypertension Qualified Code(s): I10 - Essential (primary) hypertension (10) Rising PSA level: (11) Obesity: QUALIFIERS: Obesity type: due to excess calories Obesity severity: morbid Obesity classification: adult class 1 (BMI 30 - 34.9) Serious obesity comorbidity presence: with serious comorbidity Body mass index: BMI 33.0-33.9 Qualified Code(s): E66.811 - Obesity, class 1; E66.09 - Other obesity due to excess calories; Z68.33 - Body mass index [BMI] 33.0-33.9, adult (12) Prediabetes: PLAN: Advised weight loss and no concentrated sweet diet. (13) Heme positive stool: PLAN: Plan 1. Continue therapy 2. No changes to the drug regimen today. 3. I called his dtr Migel and updated her on current diagnoses and how he is doing (elevated PSA, bone mets, AF, cognitive deficits). She is going to be coming to [place] on Wednesday. Abel's sister will be here for rounds on . 4. Needs follow up with Dr. Adeel fermin [place] from rehab. Suggested to Migel that a family member accompany Abel to his doctors appts going forward. Explained he will likely need supervision when he leaves rehab. Migel mentioned that her mother with pancreatic CA. 5. Recehck a HH in 5-7 days since stool is heme + . If it drops will need a GI consult since he needs to be on anticoagulation. Charges/Coding Visit Charges Inpatient E&M: 10914 Subs Hosp L1
[2025-05-30 02:22] VITALS: PULSE 70; RESP 17; O2SAT 95
[2025-05-30 06:00] VITALS: BP 147/94; PULSE 56; RESP 16; TEMP 36.3; O2SAT 94
[2025-05-30 06:38] VITALS: BMI 31.6
[2025-05-30 07:52] VITALS: BP 136/82; PULSE 67
[2025-05-30] MEDS: Senna/Docusate Sodium 1 Tablet 2 TABLET PO (07:53)
[2025-05-30] MEDS: APIXABAN 5 MG TABLET PO ×2 (07:53→21:36)
[2025-05-30 18:23] VITALS: BP 141/95; PULSE 75; RESP 18; TEMP 36.6; O2SAT 94
[2025-05-30 21:30] VITALS: BP 132/85; PULSE 78
[2025-05-30 21:36] VITALS: BP 132/85; PULSE 78
[2025-05-31] VITALS (8 sets, daily range): BP systolic 125–149; BP diastolic 75–102; PULSE 59–92; RESP 16; TEMP 36.5–37.2; O2SAT 94–96
--- NOTE | 2025-05-31 03:17 | NURSING ---
pt had BIPAP off upon staff rounding. Pt had removed BIPAP and found sleeping without BIPAP on. SpO2 was 87% without BIPAP. Pt encouraged to take deep breaths and got SpO2 to 91%. BIPAP reapplied after toileting needs were met. Staff will continue to monitor status of BIPAP throughout the night to keep SpO2 level adequate.
[2025-05-31] MEDS: APIXABAN 5 MG TABLET PO ×2 (09:15→21:17)
[2025-05-31] MEDS: Senna/Docusate Sodium 1 Tablet 2 TABLET PO ×2 (09:15→21:17)
--- NOTE | 2025-05-31 11:42 | PCM.PROGNOTE ---
Subjective Subjective Afebrile VSS -blood pressure is not adequately controlled. Over the past 24 hours it has ranged from 132/85 to 140/102. Heart rate is ranged from 56-92. Maintaining appropriate oxygen saturation on RA Oral intake - FOOD good FLUIDS poor Discussed with nursing - refusing to keep the CPAP on and also not keeping oxygen on at night. Impulsive, setting off alarms trying to self transfer. Poor safety awareness. Unaware that he has anything wrong with him. Can not recall from day to day why he is on rehab and what is wrong with him. Nursing alerted me today that he has a bleeding lesion on his back Abel tells me that this has been present for a while and he noticed it because when he towel dries after a shower there is blood on the towel. It is painful at times. Reviewed the THERAPY notes Medication list reviewed. Antihypertensives include metoprolol 25 mg p.o. twice daily. He is also on furosemide 40 mg daily for leg edema. He has a normal EF. Creat was increased at 1.22 on Wednesday and he has poor fluid intake. He has lab ordered for the AM. If the creat continues to increase will need to get rid of the daily lasix. Objective Data Objective Data Vital Signs: Vital Signs Temp Pulse Resp BP Pulse Ox O2 Del Method O2 Flow Rate 97.7 F L 92 16 149/89 H 96 Room Air 2 05/31/25 05:13 05/31/25 09:14 05/31/25 05:13 05/31/25 08:59 05/31/25 05:13 05/31/25 10:00 05/30/25 02:22 FiO2 94 05/30/25 21:30 Oxygen Flow Rate (L/min) 2 Oxygen Delivery Method Room Air Weight: 225 lb 12.054 oz Body Mass Index (BMI) 31.6 Intake & Output: Intake and Output for Last 24 Hours 05/29/25 05/30/25 05/31/25 23:59 23:59 23:59 Intake Total 1480 / 1480 840 / 840 340 / 340 Output Total 1050 / 1050 300 / 300 Balance 1480 / 1480 -210 / -210 40 / 40 Lab / Micro Data 05/28/25 05:10 05/28/25 05:10 Micro: Microbiology 05/28/25 11:45 Stool Stool Occult Blood (LAURA) - Final Occult Blood Positive Physical Exam Const alert and no apparent distress HEENT Mouth: dry mucous membranes Resp clear to auscultation bilaterally Cardio no gallops Cardio Narrative: Irregular irregular with controlled ventricular response. GI normal to inspection, nondistended, normoactive bowel sounds, soft to palpation and non-tender GI Narrative: No guarding with palpation Extremity Extremity Narrative: He has pitting edema of the ankles and mild pitting pretibial edema. Denies calf pain. General Extremity: edema Skin Skin Narrative: Over the R scapula he has a well circumscribed round lesion that is raised and bleeds easily. No redness around the area. No odor. does not appear to be infected. Strongly suspect cancerous.....metastatic vs new primary skin lesion. 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: (4) Weakness of left leg: (5) Atrial fibrillation with controlled ventricular rate: (6) Chronic anticoagulation: (7) Prostate cancer metastatic to bone: (8) KATHY (obstructive sleep apnea): (9) Hypertension: QUALIFIERS: Hypertension type: essential hypertension Qualified Code(s): I10 - Essential (primary) hypertension (10) Rising PSA level: (11) Obesity: QUALIFIERS: Obesity type: due to excess calories Obesity severity: morbid Obesity classification: adult class 1 (BMI 30 - 34.9) Serious obesity comorbidity presence: with serious comorbidity Body mass index: BMI 33.0-33.9 Qualified Code(s): E66.811 - Obesity, class 1; E66.09 - Other obesity due to excess calories; Z68.33 - Body mass index [BMI] 33.0-33.9, adult (12) Prediabetes: (13) Heme positive stool: (14) Non-healing wound: PLAN: Plan 1. Continue therapy 2. BMP and CBC in the AM. 3. He still has ankle and pretibial edema even with the Lasix/dehydration. will get a Venous US just to make sure this cancer pt does not have VTE. 4. The lesion on the back needs biopsied. This can be done as an OP. Will try and schedule a biopsy and an appt with Dr. Denis at [place]. Metastatic skin lesion from prostate CA or is this a primary skin cancer? 5. Not safe to go home without 24/7 adult supervision. 6. Add lisinopril 10 mg daily to the current drug regimen. First dose today Abel's sister Miracle has said that Abel can move in with her and she will provide supervision. Abel is OK with this plan. Will discuss with Abel's kids at the family meeting scheduled for 9 AM in the morning. Miracle knows she will need to supervise medication set up and compliance. I updated Migel and family on current status. Will go over this again tomorrow at the family meeting. [place] has been set for Wednesday....insurance has cut him. Will make appts for him to see Dr. Denis and Dr. Uribe ( I spoke with Dr. Uribe today and is willing to follow Abel). He is not retaining urine and he is continent now. Will need to continue follow up with Dr. Guzman. Charges/Coding Visit Charges Inpatient E&M: 01083 Subs Hosp L2
--- NOTE | 2025-05-31 12:03 | VDLE_ITS ---
Reason For Study Reason For Study: BLE Swelling RIGHT LEFT GSV is normal. GSV is normal. CFV is compressible, spontaneous, phasic, competent CFV is compressible, spontaneous, phasic, competent, and demonstrates normal augmentation. and demonstrates normal augmentation. FV is compressible, spontaneous, phasic, competent FV is compressible, spontaneous, phasic, competent and demonstrates normal augmentation. and demonstrates normal augmentation. POP V is compressible, spontaneous, phasic, competent POP V is compressible, spontaneous, phasic, competent and demonstrates normal augmentation. and demonstrates normal augmentation. T/P Trunk is compressible. T/P Trunk is compressible. PTV is compressible. PTV is compressible. RT PerV is compressible. LT PerV is compressible. Procedure This is a venous duplex using B-mode, color flow and spectral Doppler. Exam performed portable in patient room. The exam was diagnostic. A preliminary report was called and/or faxed to Dr. Garcia. VL/Venous Duplex US - [place] Extrem Interpretation Summary Deep veins of the lower extremities are bilaterally patent and compressible seg mentally. There is no evidence of deep vein thrombosis on either side. Valvular competence appears intact within the p roximal deep venous systems bilaterally. The great saphenous veins appear bilaterally patent and compressible segmentall y. Ordering Physician: Kaylah Garcia Referring Physician: Abel Barrera Performed By: Jorge Barrett, RVT
--- NOTE | 2025-05-31 13:25 | CASEMGMT ---
Social Work IDT met with patient, sister, brother and niece at bedside, then dtr via conference call, for Team meeting. Discussed patient's progres in PT/OT/ST/SN/MD. Educated to Medicare approval of 8 days with DC 06/04. Pt is physically moving well, supervision with no device. However, pt's attention, memory, processing, following directions and problem solving are impaired. Pt needs 24/7 care for safety, cues and cognitive tasks at DC. Discussed DC options for home or home with family with 24/7 care or [place]. SNF would be too high level of care d/t functional status and does not meet skilled criteria. Dtr stated she and her brothers will be in town this evening and can meet with this worker to finalize DC plans tomorrow morning. SW agreed. Dtr to notify his worker with time to meet. SW will continue to follow. Nicole Deal DIVINITY TEACHER CRITICAL CARE SPECIALIST
[2025-06-01 00:03] VITALS: O2SAT 96
[2025-06-01 05:54] LABS: Hematocrit 36.2 % (40-54); Hemoglobin 12.0 g/dL (13.0-16.5); Mean Corp Hgb Conc 33.1 g/dL (32-36); Mean Corpuscular Volume 86.4 fL (80-94); Mean Platelet Vol. 11.4 fl (6.2-12.0); Platelet Count 165 K/mm3 (150-450); RBC Distribution Width CV 14.5 % (11.6-14.6); RBC Distribution Width SD 45.3 fl (35.1-43.9); Red Blood Count 4.19 M/mm3 (4.6-6.2); White Blood Count 5.9 K/mm3 (4.4-11.0)
[2025-06-01 06:00] VITALS: BP 151/108; PULSE 75; RESP 16; TEMP 36.7; O2SAT 92
[2025-06-01 06:33] LABS: Anion Gap 11 (5-15); BUN 18 mg/dL (4-19); BUN/Creat Ratio 15.9 RATIO (10-20); Calcium,Total 9.2 mg/dL (7.6-11.0); Carbon Dioxide 25.9 mmol/L (21.0-32.0); Chloride 104 mmol/L (98-108); Estimated Creatinine Clearance 69.56 ml/min (50-250); Glucose 102 mg/dL (70-99); Potassium 3.8 mmol/L (3.3-5.1)
[2025-06-01] MEDS: Senna/Docusate Sodium 1 Tablet 2 TABLET PO ×2 (07:57→21:15)
[2025-06-01] MEDS: APIXABAN 5 MG TABLET PO ×2 (07:57→21:15)
[2025-06-01 08:02] VITALS: BP 117/74; PULSE 82
--- NOTE | 2025-06-01 10:16 | CASEMGMT ---
Social Work Received call from dtr requesting meeting at 0900. KARL agreed and notified Dr. Garcia. - KARL met with Dr. Garcia, pt's dtr and two sons. shared medical aspect and recommendations for treatment. Reiterated recommendations for DC dare 07/06 care for cognition and safety awareness, though physically mod I. Family stated pt's sister, Miracle, offered for pt to live with her, as her home is one level and handicap accessible as sister had a stroke many years ago. Sister is cognitively intact, and has the use of her right-side, but cannot help pt physically. Family and Dr agree that is the best option. Children and other family/friends can check-in with pt/sister to provide support as well. KARL offered to provide resources for assistance in the home. recommending [facility] once pt is ready to drive again. SW to complete referral. also stating pt cannot mange his own finances. This worke can provide letter from Dr with pt lacking capacity for children to provide to attorny or bank to get access to finances. Family appreciative. Karl provided the following resources: nonskilled [facility] agencies, [employer], medical alert, home delivered meals, support groups, stroke support group, ASA life After a Stroke and Caregiver Guide to Stroke, along with [facility] info and financial letter. Family very appreciative. Family electing outpatient therapy at [facility]. only ordering [facility]. KARL to coordinate. Dtr asking for pt to DC tomorrow 06/02 as there is a family reunion pt keeps asking to go to. agreed. Dtr to transport. Pt has no DME needs. - KARL faxed referral to [facility] and [facility]. Plan: DC to sister's house 06/02, [facility] ST Nicole Deal MACHINE CARTON MARKER NEUROPSYCHOLOGY MEDICAL CONSULTANT
--- NOTE | 2025-06-01 10:16 | CASEMGMT ---
Social Work Received call from dtr requesting meeting at 0900. KARL agreed and notified Dr. Garcia. - KARL met with Dr. Garcia, pt's dtr and two sons. shared medical aspect and recommendations for treatment. Reiterated recommendations for DC dare 07/06 care for cognition and safety awareness, though physically mod I. Family stated pt's sister, Miracle, offered for pt to live with her, as her home is one level and handicap accessible as sister had a stroke many years ago. Sister is cognitively intact, and has the use of her right-side, but cannot help pt physically. Family and Dr agree that is the best option. Children and other family/friends can check-in with pt/sister to provide support as well. KARL offered to provide resources for assistance in the home. recommending [facility] once pt is ready to drive again. SW to complete referral. also stating pt cannot mange his own finances. This worke can provide letter from Dr with pt lacking capacity for children to provide to attorny or bank to get access to finances. Family appreciative. Karl provided the following resources: nonskilled [facility] agencies, [employer], medical alert, home delivered meals, support groups, stroke support group, ASA life After a Stroke and Caregiver Guide to Stroke, along with [facility] info and financial letter. Family very appreciative. Family electing outpatient therapy at [facility]. only ordering ST[facility] KARL to coordinate. Dtr asking for pt to DC tomorrow 06/02 as there is a family reunion pt keeps asking to go to. agreed. Dtr to transport. Pt has no DME needs. - KARL faxed referral to [facility] and [facility]. Plan: DC to sister's house 06/02, [facility] Nicole Deal GOSPEL WORKER BELT LOOP MAKER
--- NOTE | 2025-06-01 10:24 | DCINST_ITS ---
Discharge Instructions DC O2, CPAP, BIPAP needs Home O2 Discharge instructions: No Dressing / Incision Discharge Activity: May Not Drive, May Shower (Needs supervision with tub/shower transfer. ) and - (ambulating without an Assistive device. ) Weight Bearing Status: Full weight bearing Keep extremity elevated above heart level: Left Leg Dressing / Incision Call your doctor if you observe: Fever of 101 or Higher, Inability to urinate, Shortness of breath, Dizziness, Fainting spells, Chest pain, Increased palpitations (irregular heartbeat), Calf discomfort, Uncontrolled pain and - (STROKE symptoms: facial droop, slurred speech, inability to get words out, weakness on 1 side of the body and not the other, numbness on 1 side of the body and not the other, inability to maintain your balance sitting or standing, vertigo. ) Cleanse incision/area with: Soap & Water Additional Dressing/Incision Instructions:: Keep a dressing over the bleeding lesion over the R shoulder blade. If there is redness around the wound or increased swelling around the wound or he has a fever, night sweats or chills call PCP for instructions. These are signs of infection. Follow Up Care When: you have 3 APPTS that have been scheduled for you. They are listed later in this document. Dr. Uribe for biopsy of the lesion on the back, Blanca Avila for oncology and Dr. Barrera PCP. Test Results: Test results from this visit will be discussed in further detail at your follow- up appointment, if applicable. Pending Tests Upon Discharge: none Discharge Plan Admission Admit Date/Time: 05/27/25 15:25 Primary Reason for Your Visit: POST STROKE DEBILITY Attending Provider: Kaylah Garcia Primary Care Provider: Abel Barrera Instructions Patient Instructions: AFib Additional Instructions / Restrictions: 1. You had a stroke because you have a problem with the rhythm of your heart called atrial fibrillation (also called A-fib). Atrial fibrillation causes the heart to beat irregularly and little clots can form in the heart and then be squeezed out to the brain causing strokes. To minimize your risk for strokes going forward you have now been placed on an anticoagulant called Eliquis. You will take this medication twice daily every day. since Eliquis is a blood thinner it can cause you to bleed more easily than normal. If you have a cut apply pressure for 10 minutes (no peeking) to stop the bleeding. If you are having nosebleeds, bleeding from the rectum, areas of large bruising, increasing bleeding form the lesion on your back, coughing up blood then you need to call Dr. Barrera for advice on what to do or go to the ER. 2. You did have some microscopic blood in your stool while on rehab.....I believe this is due to hemorrhoids. You blood count is stable. IF you have maroon blood from the rectum or your stool turns black and tarry call Dr. Barrera or go to the ER. 3. You will not be allowed to drive for now because you are having trouble with your thought processes and it would not be safe for you or the other drivers on the road. With more speech therapy I expect that your thought processing and reasoning will improve. We are making a referral to a drivers rehab program at [facility] and when you and the speech therapist think it may be safe to drive you can go there and they will test you to see if you can go back to driving. 4. Your PSA (a blood test for prostate cancer) has been going up steadily since last July. It was 4.26 last July and now it is 49. This means that the growth of the cancer is not controlled. The cancer has spread to your bones and you will need to follow up with Dr. Denis to change the medication/treatment for the prostate cancer to something that will work to stop the spread of the cancer. You have an appt with Blanca Avila scheduled. Blanca is a nurse prac titioner who works with Dr. Denis. 5. You have a growth on your back over your R shoulder blade that I suspect is a cancer. You will need to have a biopsy of this growth and more likely than not an excision of the mass. We made you an appt with Dr. Tremayne Uribe who is a plastic surgeon here at the hospital. You appt is scheduled for next week. 6. IT is VERY IMPORTANT to take all of your medications as directed. Since you are having trouble with memory and thinking your sister Miracle is going to help you with your medications. Help is a good thing.....your family loves you and want to see you get better. Let them help you. The thing about strokes is when you have had one most people are not aware that they have any deficits and they have poor safety awareness. Trust your family to help you. They will keep you safe until your thinking gets better 7. Your blood sugars are just a tad high so watch your carbohydrate intake and don't gain any weight. right now you are what we call prediabetic......If you don't gain weight and you don't eat a lot of concentrated sweets you probably will not develop diabetes. 8. If you or any of your family have any questions after you leave rehab please do not hesitate to call me. Good luck to you Abel and if I can help you in some way please let me know. OFFICE: [phone] CELL: [phone] NURSES ST[facility] ON REHAB: [phone] Discharge Orders/Prescriptions Prescriptions: New lisinopril 10 mg Tablet 10 mg PO DAILY Qty: 30 0RF Eliquis 5 mg Tablet 5 mg PO BID Qty: 60 0RF Continued acetaminophen 325 mg Tablet 650 mg PO Q6H PRN PRN (Reason: Pain 1-10 Or Fever>100.7) Qty: 0 0RF furosemide [Lasix] 40 mg tablet 40 mg PO DAILY Qty: 30 0RF atorvastatin 40 mg Tablet 40 mg PO QHS Qty: 30 0RF metoprolol tartrate 25 mg Tablet 25 mg PO BID Qty: 60 0RF Discontinued Eliquis 5 mg tablet 5 mg PO BID 30 Days Qty: 60 0RF Referrals / Follow Up: Abel Barrera DO [Primary Care Provider] - 06/13/25 9:30 am () Tremayne Uribe MD [Med Staff - Active Staff] - 06/08/25 9:15 am (WITH IN 2 WEEKS OF DC) Blanca Avila NP, ENTREPRENEURSHIP PROGRAM DIRECTOR-C [Med Staff - Adv Practice Prof] - 06/18/25 10:30 am (Will be seeing the ENTREPRENEURSHIP PROGRAM DIRECTOR in place of Dr Denis) Disposition Disposition (needs filled in before D/C Order can be placed): Home, Self Care
[2025-06-01 16:31] VITALS: BP 150/92; PULSE 80; RESP 18; TEMP 36.7; O2SAT 95
--- NOTE | 2025-06-01 17:43 | EX.PCM.CON.S ---
Assessment & Plan Assessment/Plan (1) Non-healing wound: (2) Neoplasm of uncertain behavior of skin: PLAN: Plan Right upper back neoplasm likely a squamous cell carcinoma Plan for excision in clinic with primary closure Discussed risk benefits and alternatives to this procedure including risk of wound healing complications and infection. Patient is family in agreement to proceed. Since it is bleeding I think it is most appropriate to excise and closed in clinic as soon as possible. Patient being discharged in the TCU now Follow-up early to mid next week for excision in clinic. Discussed pressure dressing for now as needed. 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 It is been present for several months and getting larger. Patient has been on blood thinner for his atrial fibrillation and it is caused a mass to bleed. He and his family would like it removed. 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 Cholelithiasis Renal cyst Nephrolithiasis Non-smoker Hematuria Pancytopenia High risk medication use KATHY (obstructive sleep apnea) Fatty liver disease Agranulocytosis secondary to cancer chemotherapy Drug induced neutropenia Hairy cell leukemia Obesity Hypertension Home Medications ?Medication ?Instructions ?Recorded ?Last Taken ?Type acetaminophen 325 mg tablet 650 mg (2 x 325 mg) PO Q6H PRN PRN 05/27/25 Unknown Rx Pain 1-10 Or Fever>100.7 #0 tabs apixaban 5 mg tablet (Eliquis) 5 mg PO BID #60 tabs 06/01/25 Unknown Rx atorvastatin 40 mg tablet 40 mg PO QHS Cholestrol #30 tabs 06/01/25 Unknown Rx furosemide 40 mg tablet (Lasix) 40 mg PO DAILY Fluid retention #30 06/01/25 Unknown Rx tabs lisinopril 10 mg tablet 10 mg PO DAILY #30 tabs 06/01/25 Unknown Rx metoprolol tartrate 25 mg tablet 25 mg PO BID BP #60 tabs 06/01/25 Unknown Rx Allergy/AdvReac Type Severity Reaction Status Date / Time sulfamethoxazole (From AdvReac Intermediate Rash Verified 05/22/25 17:07 Bactrim) trimethoprim (From Bactrim) AdvReac Intermediate Rash Verified 05/22/25 17:07 Family History Mother Hypertension CVA (cerebral vascular accident) Breast cancer Sister CVA (cerebral vascular accident) Surgical History History of prostate biopsy Basal cell carcinoma of nose Social History household members: none housing: house number of children: 3 Smoking Status: Never smoker second hand exposure: No alcohol intake: never substance use type: does not use Physical Exam Narrative No axillary lymphadenopathy on my exam Right upper back with a 2 x 2 cm exophytic lesion that is actively oozing blood slowly Feels superficial and is not fixed to the underlying deep soft tissues Lab / Micro Data 06/01/25 05:32 06/01/25 05:32 Labs: Laboratory Results - last 24 hr 06/01/25 05:32: WBC 5.9, RBC 4.19 L, Hgb 12.0 L, Hct 36.2 L, MCV 86.4, MCH 28.6, MCHC 33.1, RDW Std Deviation 45.3 H, RDW Coeff of Kristen 14.5, Plt Count 165, MPV 11.4, Sodium 141, Potassium 3.8, Chloride 104, Carbon Dioxide 25.9, Anion Gap 11, BUN 18, Creatinine 1.10, Estim Creat Clear Calc 69.56, Est GFR (MDRD) Non-Af 70, BUN/Creatinine Ratio 15.9, Glucose 102 H, Calcium 9.2 Imaging Radiology Impression Venous Doppler Study 05/31/25 12:03 Interpretation Summary Deep veins of the lower extremities are bilaterally patent and compressible segmentally. There is no evidence of deep vein thrombosis on either side. Valvular competence appears intact within the proximal deep venous systems bilaterally. The great saphenous veins appear bilaterally patent and compressible segmentally. Ordering Physician: Kaylah Garcia Referring Physician: Lisset Barrera Performed By: Jorge Barrett RVT Charges/Coding Visit Charges Office Visits / Consults: [id number] OV L2 New 15min
[2025-06-01 21:15] VITALS: BP 145/95; PULSE 85
[2025-06-02 06:00] VITALS: BP 136/97; PULSE 79; RESP 18; TEMP 36.9; O2SAT 97
[2025-06-02 07:57] VITALS: BP 136/97; PULSE 79
[2025-06-02] MEDS: APIXABAN 5 MG TABLET PO (07:57)
--- NOTE | 2025-06-02 08:39 | EX.DISCHREH ---
Providers Date of Admission: 05/27/25 Date of Discharge: 06/02/25 Primary Care Physician: Dr. Lisset Barrera, DO Dr. 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: Status: Acute Code(s): I63.9 - Cerebral infarction, unspecified; R41.89 - Other symptoms and signs involving cognitive functions and awareness (5) Weakness of left leg: Status: Acute Code(s): R29.898 - Other symptoms and signs involving the musculoskeletal system (6) Non-healing wound: Status: Chronic (7) Neoplasm of uncertain behavior of skin: Status: Chronic Code(s): D48.5 - Neoplasm of uncertain behavior of skin (8) Chronic anticoagulation: Status: Chronic Code(s): Z79.01 - [facility] (current) use of anticoagulants (9) Heme positive stool: Status: Acute Code(s): R19.5 - Other fecal abnormalities Plan: HGB at [place] is 12 and it has been stable. If it starts to drop will likely need to see Dr. Welch for evaluation for source of GI blood loss since he is on Eliquis for CVA due to PAF. (10) Rising PSA level: Status: Chronic Code(s): R97.20 - Elevated prostate specific antigen [PSA] (11) Prostate cancer metastatic to bone: Status: Chronic Code(s): C61 - Malignant neoplasm of prostate; C79.51 - Secondary malignant neoplasm of bone (12) Chronic renal failure, stage 2 (mild): Status: Chronic Code(s): N18.2 - Chronic kidney disease, stage 2 (mild) (13) Prediabetes: Status: Chronic Code(s): R73.03 - Prediabetes Plan: Hemoglobin A1c is 6.2. (14) Normochromic normocytic anemia: Status: Chronic Code(s): D64.9 - Anemia, unspecified (15) KATHY (obstructive sleep apnea): Status: Chronic Code(s): G47.33 - Obstructive sleep apnea (adult) (pediatric) (16) Hypertension: Status: Chronic Code(s): I10 - Essential (primary) hypertension Qualifiers: Hypertension type: essential hypertension Qualified Code(s): I10 - Essential (primary) hypertension Plan: BP at DC from rehab is not adequately controlled. He was taking Metoprolol at admission to rehab. This is controlling the HR. Lisinopril was added to the drug regimen and the first dose was on the . May need further adjustment of antihypertensives post DC if the BP remains > 140/80. I did not increase the Metoprolol because he had some HR's in the 50's initially (mostly in the AM). HR at DC is in the 70-85 range. On the day of DC sitting in a chair the HR was 60 and he was in AF. Will increase the Lisinopril if the BP remains uncontrolled. Plan 1. DC home with sister Miracle on 06/02/25 2. No DME needed 3. OP ST at [place] 4. Follow-up scheduled with Dr. Lisset Barrera on 06/13/2025 at 9:30 AM. 5. Follow-up with Dr. 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 6. Follow-up with Blanca CURRAN (oncology) on 06/18/2025 at 10:30 AM to address rising PSA.......most recently up to 49.7 from 4.26 in July of 2024. Now with metastatic disease in the bones seen incidentally on CT scan of the abd and pelvis. 7. Since Lisset is not going to see Dr. Barrera until 06/13 I instructed him to take his BP at different times and keep a record. He will call me next week mid week and if the BP's have consistently been > 140/80 will increase Lisinopril. He has been on as much as 40 mg of Lisinopril in the past. Would avoid Amlodipine since he already has mild ankle edema. 8. GOing forward he should probably follow up with cardiology. Medications at Discharge Home Medications acetaminophen 325 mg tablet 650 mg (2 x 325 mg) PO Q6H PRN PRN Pain 1-10 Or Fever>100.7 #0 tabs 05/27/25 apixaban 5 mg tablet (Eliquis) 5 mg PO BID #60 tabs 06/01/25 atorvastatin 40 mg tablet 40 mg PO QHS Cholestrol #30 tabs 06/01/25 furosemide 40 mg tablet (Lasix) 40 mg PO DAILY Fluid retention #30 tabs 06/01/25 lisinopril 10 mg tablet 10 mg PO DAILY #30 tabs 06/01/25 metoprolol tartrate 25 mg tablet 25 mg PO BID BP #60 tabs 06/01/25 Hospital Course Operations None Procedures Transthoracic echo (05/23/2025. Normal left ventricular size and normal left ventricular systolic function with an ejection fraction estimated at 55%. 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 Denis/Dr. Guzman), nephrolithiasis, obstructive sleep apnea, fatty infiltration of the liver, history of hairy cell leukemia (in remission), obesity, hypertension, obstructive sleep apnea and new onset PAF (was noted on 05/09/25 when he was seen for his pulmonary F/U and was sent to the ED and started on Eliquis) who presented to the emergency department at [facility] on 05/22/2025 with complaints of altered mental status. He was in AF with a HR of 130-140 at presentation to ED. He had not yet picked up the RX for Eliquis. Noncontrast CT brain was unremarkable. Chest x-ray per radiologist showed cardiomegaly with no evidence of acute pulmonary disease and no pleural effusions. Lab showed an elevated creatinine at 1.26. Hemoglobin A1c was elevated at 6.2. BNP was 4303. LDL was 99 and the HDL was 43. Triglycerides were normal. He had a TSH checked on 05/09/2025 and it was within normal limits. He was started on a Cardizem drip in the ED. He was admitted to the hospitalist service and maintained on the Cardizem drip. Lopressor was increased from 50 mg daily to 50 mg twice daily. He was started on Eliquis. Lasix 20 mg IV twice daily was ordered. A transthoracic echocardiogram showed mild concentric left ventricular hypertrophy with an ejection fraction of 55%. There were no wall motion abnormalities. The right ventricle was normal in size and function. There was no atrial enlargement. There was no significant valvular heart disease and a bubble study was not done. MRI of the brain showed patchy gyriform diffusion restriction in the right parietal lobe posteriorly. There were no foci of abnormal intracranial contrast enhancement to suggest metastatic disease. Subsequent to the findings on the MRI a CTA of the head and neck was ordered. This showed minimal plaque at the origin of the right and left internal carotid arteries with no significant stenosis. There were no aneurysms and no large vascular malformations noted. While in the hospital a CT scan of the abd and pelvis was ordered, presumably to assess for Prostate CA progression. The CT scan showed no acute intra-abdominal process. There were bilateral renal cysts and cholelithiasis present. There was a splenic calcification and a fat-containing umbilical hernia. There were findings in the axial skeleton consistent with a metastatic process. Bone scan in 2021 showed no evidence of metastatic disease. He last saw Dr. Denis in July of 2024. In July 2024 the PSA was 4.26. In November it was 19.6 and in February it was 35. PSA at admission to the hospital was 49.7. Lisset denied any bone pain. Lisset was transferred to the acute inpatient rehab unit at [facility] on 05/27/2025 for 3 hours of therapy daily to restore function/independence at or near his level prior to recent stroke. Lisset was living by himself and was independent with all ADL's. I suspect he has been having TIA's. His niece related to me that he has been having episodic confusion. She first noticed this in December of 2024.......sx resolved within 24H. Lisset was noted to have a well circumscribed fungating mass on his back over the R scapula during his admission to rehab. He said it had been present for several months and he noticed it because when he towel dried after a shower there would be blood on the towel. With Eliquis the lesion started to bleed more while on rehab. He was seen in consultation by Dr. Uribe from plastic surgery and the lesion will be excised as an OP. The primary deficit from recent embolic strokes is cognitive. He had mild weakness of the left leg when compared to the right. This has improved significantly and at the time of DC he is ambulating long distances without an AD at A on various surfaces with no LOB. He is supervision/set up for ADL's because he needs verbal cuing to initiate activities. He needs verbal cuing for direction because he can not remember where he is going. He scored only 25/50 on the BCAT (brief cognitive assessment tool) administered by ST at admission to rehab (it was 21/50 when he was initially assessed by ST just after admission to the hospital). Prior to DC ST administered a COG LOG test (cognitive log) and he scored 19/30. He was also administered the VPJ test (verbal practical judgment) prior to DC and scored 4/20. Lisset is not safe to be by himself and will need 07/06 supervision at the time of DC from rehab. He is going home with his sister Miracle at [place] and she will be managing his medications and supervising his activities. He will not be able to drive. He will have OP ST at [facility]. Lisset has an appt to follow up with oncology for increasing PSA. Has been getting Lupron injections from Dr. Guzman up until now. The PSA in past was slowly rising and he was started on Apalutamide by Dr. Guzman. The last bone scan was on 08/03/22 and at that time he had no evidence of bone mets. There were no brain mets noted on the MRI of the brain. Physical Exam Const alert and no apparent distress Constitutional Narrative: Sitting in the recliner awaiting discharge when I entered the room. Appropriate and pleasant. General Appearance: cooperative and comfortable HEENT normocephalic and head/scalp atraumatic HEENT Narrative: Mucous membranes are mildly dry, better than at admission.. No evidence of thrush. Soft palate elevates symmetrically. Tongue protrudes on the midline. Eyes PERRL, EOMs intact bilaterally, conjunctivae normal and no scleral icterus Eyes Narrative: No discharge from the eyes. No ptosis. No visual field cuts. General Eye: normal appearance of both eyes Neck no lymphadenopathy, supple, no JVD, No nodes and no carotid bruits Carotids: normal carotid upstroke Chest Chest: symmetrical chest wall rise Resp normal respiratory effort, no use of accessory muscles and clear to auscultation bilaterally Resp Narrative: Not tachypneic and no conversational dyspnea. Good effort. No dyspnea with exertion. Denies orthopnea. Cardio S1 normal heart sound, S2 normal heart sound, no murmurs, no rub and no gallops Cardio Narrative: Irregular irregular rhythm with controlled ventricular response. GI normal to inspection, nondistended, normoactive bowel sounds and non-tender GI Narrative: No guarding with palpation. no CVA tenderness Narrative: Postvoid residual x 3 are unremarkable. Back/Spine General Back: Negative for CVA tenderness Extremity no calf tenderness Extremity Narrative: Negative Eddie's and John's signs. No pitting pretibial edema. Patchy hyperpigmentation of spots on his distal lower legs. Mild edema of the distal pretibial area (just above the ankle) and the ankle......+1. He has hyperpigmentation and likely has chronic venous insufficiency. Lungs ar CTA and he has no orthopnea or PND or VERA. Recommended he consider compression stockings. Skin Skin Narrative: He has an exophytic fungating well circumscribed lesion over the R scapula that is most likely a skin cancer. 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 It is bleeding.....more so with Eliquis. Has been seen by Dr. Uribe and has an appt to arrange excisional bx. Has a few scabbed over abrasions on extremities from recent falls, which he does not remember having. Hyperpigmentation of the distal legs more likely than not due to chronic venous insufficiency......venous US of the LE's negative for DVT. Neuro Neuro Narrative: Facial asymmetry. Tongue protrudes on the midline. 5/5 strength in all extremities now. Had some weakness in the left lower extremity at admission. No ataxia. No extinction. Still having trouble with word finding. Could only name 4/7 of the pictures I showed him. Was finally able to name the bicycle with some verbal clues. Could not name the stop light or the bridge, even with clues. No slurring. He was able to read all the words in all the sentences with no hesitation. Still having trouble following some commands but can complete an activity after I demonstrate what I want him to do. Motor Exam: strength 5/5 throughout Psych cooperative, denies hallucinations, denies homicidal ideation and denies suicidal ideation Psych Narrative: Pleasant. Affect is a little flat. Appearance: appropriate and well kempt Attitude: calm Activity / Motor Behavior: appropriate eye contact Weight / BMI Weight Weight: 225 lb 12.054 oz Body Mass Index (BMI) 31.6 ABG / Lab / Microbiology Data 06/01/25 05:32 06/01/25 05:32 Microbiology: Microbiology 05/28/25 11:45 Stool Stool Occult Blood (LAURA) - Final Occult Blood Positive Indicators for Scoring Admitted with or Primary Diagnosis of CVA/Stroke: Yes Hx of CVA/Stroke: Yes Modified Chireno Score MRS Score at time of Evaluation: 3-Moderate disability (primarily for cognitive deficit. Unable to live independently at DC. Requires 24/7 supervision and others to manage medications and finances. ) NIHSS NIHSS 1a. Level of Consciousness: 0 - Alert; keenly responsive 1b. LOC Questions: 0 - Answers BOTH questions correctly 1c. LOC Commands: 0 - Performs BOTH tasks correctly 2. Best Gaze: 0 - Normal 3. Visual: 0 - No visual loss 4. Facial Palsy: 0 - Normal symmetrical movements 5a. Left Arm: 0 - No drift; arm holds 90 (or 45) degrees for full 10 seconds 5b. Right Arm: 0 - No drift; arm holds 90 (or 45) degrees for full 10 seconds 6a. Left Le - No drift; leg holds 30-degree position for full 5 seconds 6b. Right Le - No drift; leg holds 30-degree position for full 5 seconds 7. Limb Ataxia: 0 - Absent 9. Best Language: 1 - Eoai-us-utnrvbei aphasia; 10. Dysarthria: 0 - Normal 11. Extinction and Inattention: 0 - No abnormality Total: 1 Stroke Questions Stroke Team Activated: No D/C Instructions Diet Diet Order/Speech Therapy: INPATIENT Hospital Diet / Speech Therapy Order(s) 05/27/25 16:05 Diet: Cardiac - Heart Healthy Food consistency:: Regular Liquid Consistency:: Regular/Thin Type of Dietary Supplement:: Ensure Plus High Protein Diet Comments: 240ml ensure HP w/ breakfast tray Discharge order: Continue INPATIENT Hospital Diet / Speech Therapy Orders: Yes Weight Bearing Status: Full weight bearing Keep extremity elevated above heart level: Left Leg Call your doctor if you observe: Fever of 101 or Higher, Inability to urinate, Shortness of breath, Dizziness, Fainting spells, Chest pain, Increased palpitations (irregular heartbeat), Calf discomfort, Uncontrolled pain and - (STROKE symptoms: facial droop, slurred speech, inability to get words out, weakness on 1 side of the body and not the other, numbness on 1 side of the body and not the other, inability to maintain your balance sitting or standing, vertigo. ) Cleanse incision/area with: Soap & Water Additional Dressing/Incision Instructions: Keep a dressing over the bleeding lesion over the R shoulder blade. If there is redness around the wound or increased swelling around the wound or he has a fever, night sweats or chills call PCP for instructions. These are signs of infection. DC O2, CPAP, BIPAP Needs RN Home O2 qualification: No Data to Display PSN CPAP & BiPAP: BiPAP & CPAP Settings per PSN Fraction of Inspired Oxygen ( 94 05/30/25 21:30 FIO2) Home O2 Discharge instructions: No Pending Tests Upon Discharge: none When: you have 3 APPTS that have been scheduled for you. They are listed later in this document. Dr. Uribe for biopsy of the lesion on the back, Blanca Avila for oncology and Dr. Barrera PCP. Meaningful Use Info Meaningful Use Meaningful Use Diagnoses (Choose all that apply): Ischemic CVA (embolic due to AF) CVA Therapy Assessed for PT,OT and/or ST?: Yes Ischemic Stroke Antithrombotic order at d/c?: No Reason antithrombotic not ordered: Treatment not Indicated (He is on Elquis. The strokes were embolic. NO significant vascular disease no CAT of the head and neck. Has heme + stool and a bleeding, likely cancerous, lesion on his back. ) Dx of Atrial fib/flutter?: Yes Anticoagulant at discharge?: Yes Statin Dosing Therapy Reference: STATIN DOSE THERAPY REFERENCE: * Patients > 75 years receive moderate or high dose statin therapy. * Patients 75 years or YOUNGER should receive HIGH intensity statin dose unless contraindicated. You will be required to document reason for non-treatment if statin daily dose does not meet guidelines. HIGH DOSE STATIN THERAPY DAILY Atorvastatin > than or = to 40 mg Rosuvastatin > than or = to 20 mg Amlodipine + Atorvastatin > than or = to 2.5/40 mg Ezetimibe + Simvastatin 10/80 mg Simvastatin 80mg Statins at discharge?: Yes Primary Dx Acute Ischemic CVA?: Yes Discharge Plan Admission Admit Date/Time: 05/27/25 15:25 Primary Reason for Your Visit: POST STROKE DEBILITY Attending Provider: Kaylah Garcia Primary Care Provider: Lisset Barrera Consulting Providers: Tremyane Uribe Instructions Patient Instructions: AFib Additional Instructions / Restrictions: 1. You had a stroke because you have a problem with the rhythm of your heart called atrial fibrillation (also called A-fib). Atrial fibrillation causes the heart to beat irregularly and little clots can form in the heart and then be squeezed out to the brain causing strokes. To minimize your risk for strokes going forward you have now been placed on an anticoagulant called Eliquis. You will take this medication twice daily every day. since Eliquis is a blood thinner it can cause you to bleed more easily than normal. If you have a cut apply pressure for 10 minutes (no peeking) to stop the bleeding. If you are having nosebleeds, bleeding from the rectum, areas of large bruising, increasing bleeding form the lesion on your back, coughing up blood then you need to call Dr. Barrera for advice on what to do or go to the ER. 2. You did have some microscopic blood in your stool while on rehab.....I believe this is due to hemorrhoids. You blood count is stable. IF you have maroon blood from the rectum or your stool turns black and tarry call Dr. Barrera or go to the ER. 3. You will not be allowed to drive for now because you are having trouble with your thought processes and it would not be safe for you or the other drivers on the road. With more speech therapy I expect that your thought processing and reasoning will improve. We are making a referral to a drivers rehab program at [facility] and when you and the speech therapist think it may be safe to drive you can go there and they will test you to see if you can go back to driving. 4. Your PSA (a blood test for prostate cancer) has been going up steadily since last July. It was 4.26 last July and now it is 49. This means that the growth of the cancer is not controlled. The cancer has spread to your bones and you will need to follow up with Dr. Denis to change the medication/treatment for the prostate cancer to something that will work to stop the spread of the cancer. You have an appt with Blanca Avila scheduled. Blanca is a nurse practitioner who works with Dr. Denis. 5. You have a growth on your back over your R shoulder blade that I suspect is a cancer. You will need to have a biopsy of this growth and more likely than not an excision of the mass. We made you an appt with Dr. Tremayne Uribe who is a plastic surgeon here at the hospital. You appt is scheduled for next week. 6. IT is VERY IMPORTANT to take all of your medications as directed. Since you are having trouble with memory and thinking your sister Miracle is going to help you with your medications. Help is a good thing.....your family loves you and want to see you get better. Let them help you. The thing about strokes is when you have had one most people are not aware that they have any deficits and they have poor safety awareness. Trust your family to help you. They will keep you safe until your thinking gets better 7. Your blood sugars are just a tad high so watch your carbohydrate intake and don't gain any weight. right now you are what we call prediabetic......If you don't gain weight and you don't eat a lot of concentrated sweets you probably will not develop diabetes. 8. If you or any of your family have any questions after you leave rehab please do not hesitate to call me. Good luck to you Lisset and if I can help you in some way please let me know. OFFICE: [phone] CELL: [phone] NURSES STATION ON REHAB: [phone] Obtain a BP cuff and take the BP a couple times a day at different times so we can get a trend. Since will not be seeing Dr. Barrera until June 13 you can call me next week on Wednesday or Wednesday with the BP results and I can make adjustments to the antihypertensives if needed. The goal for the BP is to keep it less than 140/80. Discharge Orders/Prescriptions Prescriptions: New lisinopril 10 mg Tablet 10 mg PO DAILY Qty: 30 0RF Eliquis 5 mg Tablet 5 mg PO BID Qty: 60 0RF Continued acetaminophen 325 mg Tablet 650 mg PO Q6H PRN PRN (Reason: Pain 1-10 Or Fever>100.7) Qty: 0 0RF furosemide [Lasix] 40 mg tablet 40 mg PO DAILY Qty: 30 0RF atorvastatin 40 mg Tablet 40 mg PO QHS Qty: 30 0RF metoprolol tartrate 25 mg Tablet 25 mg PO BID Qty: 60 0RF Discontinued Eliquis 5 mg tablet 5 mg PO BID 30 Days Qty: 60 0RF Referrals / Follow Up: Lisset Barrera DO [Primary Care Provider] - 06/13/25 9:30 am () Tremayne Uribe MD [Med Staff - Active Staff] - 06/08/25 9:15 am (WITH IN 2 WEEKS OF DC) Blanca Avila NP, [employer] [Med Staff - Adv Practice Prof] - 06/18/25 10:30 am (Will be seeing the [employer] in place of Dr Denis) Saud Echavarria MD [Med Staff - Active Staff] - (Follow up for AFIB and CHF) Disposition Disposition (needs filled in before D/C Order can be placed): Home, Self Care Charges/Coding Visit Charges Inpatient E&M: 37155 Disch Hosp >30min
[2025-06-02 11:24] VITALS: BP 134/97; PULSE 79; RESP 16; TEMP 36.8; O2SAT 95
== END 2025-06-02 11:05 | disposition home or self-care (01) | DRG 57 ==
PROVIDERS: Admitting Provider Internal Medicine; PCP Family Medicine; Visit Provider Internal Medicine
DX: I69.318 Other symptoms and signs involving cognitive functions following cerebral infarction (principal); C79.51 Secondary malignant neoplasm of bone; I69.344 Monoplegia of lower limb following cerebral infarction affecting left non-dominant side; I12.9 Hypertensive chronic kidney disease with stage 1 through stage 4 chronic kidney disease, or unspecified chronic kidney disease; K76.0 Fatty (change of) liver, not elsewhere classified; E66.811 Obesity, class 1; I48.0 Paroxysmal atrial fibrillation; N18.2 Chronic kidney disease, stage 2 (mild); C61 Malignant neoplasm of prostate; G47.33 Obstructive sleep apnea (adult) (pediatric); K80.20 Calculus of gallbladder without cholecystitis without obstruction; K42.9 Umbilical hernia without obstruction or gangrene; R29.898 Other symptoms and signs involving the musculoskeletal system; Z79.899 Other long term (current) drug therapy; N28.1 Cyst of kidney, acquired; Z79.01 Long term (current) use of anticoagulants; Z68.33 Body mass index [BMI] 33.0-33.9, adult; R73.03 Prediabetes; C44.90 Unspecified malignant neoplasm of skin, unspecified
CPT/HCPCS: 36415; 80048; 81001; 82274; 83735; 84100; 85025; 85027; 92507; 92523; 93970; 97110; 97112; 97116; 97129; 97162; 97166; 97530; 97535; 97802; A4216

== ENCOUNTER → 2025-06-08 | Outpatient (CLI) | payer MEDICARE, OTHER, SELFPAY ==
[2019-08-22 13:32] VITALS: BMI 33.8
--- NOTE | 2025-06-08 | LES_PTH ---
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 Tremayne Uribe MD : 1950 BED: DIS: 06/08/2025 SPEC #: [id number] RECD: 06/08/25 14:15 STATUS: MAYANK EMIL #: [id number] MEGHAN: 06/08/25 00:[address]: Tremayne Uribe DEPT: SURGICAL PATHOLOGY RECD BY: Adrian Jorge ENTERED: 06/08/25 15:03 SP TYPE: Lesion OTHR DR: Dr. Lisset Barrera, DO Tissues: A - Skin of back, NOS Procedures: Surgery Specimen Level IV HEADER OPERATION: Right upper back skin cancer excision and closure PRE-OP DIAGNOSIS: Right upper back excision TISSUE SUBMITTED: A- Short superior, long lateral - right upper back, skin cancer MICROSCOPIC DIAGNOSIS A. Back, right upper, "skin cancer", excision: - Nodular basal cell carcinoma, ulcerated, surgical margins free. - The tumor involves an expanded papillary dermis. - No lymphovascular or perineural invasion identified. MICROSCOPIC DESCRIPTION Slides are reviewed. GROSS DESCRIPTION Received in formalin labeled with the patient's name and date of . Designated as "right upper back skin cancer" is a is a 3.4 x 2.9 cm taveras and slightly ovoid skin ellipse excised to a maximum depth of 0.8 cm and with orientation as follows:Long suture: designated as lateral, redesignated as "12:00" per the [facility] [place].Short suture: designated as superior, redesignated as "9:00" per the [facility] [place]. There is a 2.3 x 2.1 cm taveras-white to red, firm to rubbery, fungating lesion with irregular borders, located the following distances from the margins:12:00: 0.8 cm 3:00: 0.6 cm 6:00: 0.8 cm9:00: 0.4 cmDeep: 0.8 cm Ink valencia: 12:00 half (deep): Black3:00 (periphery): Green9:00 (periphery): Blue6:00 half (deep): [place] The specimen is serially sectioned from 12:00 to 6:00 revealing pink-red cut surfaces underlying the epidermal lesion; grossly, the lesion appears to be contained to the epidermal surface without extension into the underlying soft tissue. Entirely submitted, sequentially in 7 cassettes. [place] 06/08/2025 CPT:81492
== END | disposition home or self-care (01) ==
LOC: LABSPEC 14:18
PROVIDERS: PCP Family Medicine; Referring Provider Surgery Plastic and Reconstructive Surgery; Visit Provider Surgery Plastic and Reconstructive Surgery
DX: C44.519 Basal cell carcinoma of skin of other part of trunk (principal)
CPT/HCPCS: 88305

== ENCOUNTER → 2025-07-05 | Outpatient (CLI) | payer MEDICARE, OTHER, SELFPAY ==
[2019-08-22 13:32] VITALS: BMI 33.8
[2025-07-05 12:38] LABS: Hematocrit 41.4 % (40-54); Hemoglobin 13.0 g/dL (13.0-16.5); Immature Granulocytes Count 0.010 X10^3/uL (0.0-0.0); Mean Corp Hgb Conc 31.4 g/dL (32-36); Mean Corpuscular Volume 92.2 fL (80-94); Mean Platelet Vol. 11.8 fl (6.2-12.0); NRBC Flagged by Analyzer 0 % (0-5); Platelet Count 215 K/mm3 (150-450); RBC Distribution Width CV 15.1 % (11.6-14.6); RBC Distribution Width SD 51.6 fl (35.1-43.9); Red Blood Count 4.49 M/mm3 (4.6-6.2); White Blood Count 4.7 K/mm3 (4.4-11.0)
[2025-07-05 13:28] LABS: AST(SGOT) 21 U/L (<=37); Alanine Aminotransfer ALT/SGPT 21 U/L (<=46); Albumin, Serum 4.1 g/dL (3.4-4.8); Alkaline Phosphatase 80 U/L (40-129); Anion Gap 12 (5-15); BUN 23 mg/dL (4-19); BUN/Creat Ratio 18.5 RATIO (10-20); Calcium,Total 10.0 mg/dL (7.6-11.0); Carbon Dioxide 26.4 mmol/L (21.0-32.0); Chloride 102 mmol/L (98-108); Cholesterol 137 mg/dL (<=200); Globulin 3.8 g/dL (2.2-4.2); Glucose 145 mg/dL (70-99); Low Density Lipoprotein Calc. 73 mg/dL; Potassium 3.8 mmol/L (3.3-5.1); Triglycerides 90 mg/dL; Very Low Density Lipoprotein 18 mg/dL (5-40); cholesterol:hdl ratio screen 2.97
== END | disposition home or self-care (01) ==
LOC: BFHLAB 09:03
PROVIDERS: PCP Family Medicine; Visit Provider Family Medicine
DX: I48.91 Unspecified atrial fibrillation (principal); I10 Essential (primary) hypertension
CPT/HCPCS: 36415; 80053; 80061; 85025

== ENCOUNTER 2025-10-26 10:00 | Outpatient (RCR) | payer MEDICARE, OTHER, SELFPAY ==
[2019-08-22 13:32] VITALS: BMI 33.8
--- NOTE | 2025-06-05 19:04 | HP.SP.EVAL ---
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 He was recently d/c from inpatient rehabilitation on 06/01 following participation in speech therapy for a week a half (3 days acute, 5 days inpatient rehab). Per patient history from recent hospital admission, Pt was found outside in his car without pants on, the police were called, and he was taken to the ER. Patient was accompanied to his evaluation with his son, Lisset, and daughter, Migel, who helped serve as historians. He is currently living with his sister who provides supervision 07/06. There hope for Pt is for him to be independent again along with driving. Both reporting there were cognitive changes prior to this CVA that caused this admission to the hospital. Family noticing difficulty with word finding or giving up during conversation such as ah, never mind. 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 Prior to admission, Lisset was writing checks to pay bills which family reports looked okay after reviewing several between now and this past December. He also previously managed his own medications but family reporting he was having difficulty with his blood pressure, so they suspect he may have started to forget to take the medications. Lisset (son) reporting that Pt will brush off things when they get challenging and lacks deficit awareness. Lisset (son) reporting they are considering selling Pt's house and finding a smaller apartment/condo for him in town. Hobbies include watching sports and playing poker with his friends. Medications related to this diagnosis: Eliquis (5 mg, BID), Atorvastatin (40 mg, QHS), Furosemide/Lasix (40 mg, daily), Lisinopril (10 mg, daily), Metoprolol tartrate (25 mg, BID) Smoking Status: Never smoker Diagnosis Diagnosis: CVA; Moderate Cognitive Linguistic Dysfunction Pain Is pain an issue with your current prescribed condition?: No Personal Preferred language: Vietnamese Patient Allergies Allergies Allergies: Allergies sulfamethoxazole (From Bactrim) Adverse Reaction (Intermediate, Verified 05/22/25 17:07) Rash trimethoprim (From Bactrim) Adverse Reaction (Intermediate, Verified 05/22/25 17:07) Rash CLQT CLQT CLQT Administered: Yes CLQT: Cognitive Linguistic Quick Test (CLQT) is a criterion - referenced assessment designed for adults between the ages of 18 and 89 with known or suspected neurological dysfuntions. The CLQT is to assess strength and weaknesses in five cognitive domains. Severity ratings are within normal limits, mild, moderate, severe deficits. The subtests are as follows: Date: 06/04/25 Attention Attention: Mild Memory Memory: Mild Executive Functions Executive Functions: Severe Language Language: Moderate Visuospatial Skills Visuospatial Skills: Mild Composite Severity Rating Composite Severity Rating: Moderate Clock Drawing Severity Rating Clock Drawing Severity Rating: Moderate CLQT Comments Cognitive Domain Scores: -: Results of the CLQT are as follows: Cognitive Domain Scores ? Personal Facts (memory and language ability): 06/22 (WITHIN CRITERION CUT OFF -- INITIALLY GOT DISTRACTED WHEN REPORTING HIS YEAR STATING WELL 1968 IS WHEN I GRADUATED. WITH A PROMPT, HE WAS EASILY REDIRECTED TO STATE 1950) ? Symbol Cancellation (nonlinguistic task of visual attention and perception, integrity of the upper/lower quadrants of the left/right visual tavera): 10/26 (WITHIN CRITERION CUT OFF) ? Confrontation Naming (aphasia, perseveration, verbosity): 08/24 (WITHIN CRITERION CUT OFF) ? Clock Drawing (screening of all cognitive domains): 06/27 (MODERATE SEVERITY) ? Story Retelling (memory and comprehension, arousal, attention, storage capacity, narrative skills): 3/10 (BELOW CRITERION CUT OFF) ? Symbol Trails (nonlinguistic task to assess planning, self-monitoring, working memory, and visual attention, and impulsivity): 3/10 (BELOW CRITERION CUT OFF) ? Generative Naming (word retrieval skills, perseveration): 2/9 (BELOW CRITERION CUT OFF) ? Design Memory (nonlinguistic task to assess visual discrimination & analysis, attention, and visual memory, impulsivity, perseveration): 4/ (WITHIN CRITERION) ? Mazes (planning, mental flexibility, self-monitoring, visual discrimination, and impulsivity): 0/8 (BELOW CRITERION CUT OFF) ? Design Generation (nonlinguistic task of creativity and mental flexibility): 11/27 (BELOW CRITERION CUT OFF) Severity Rating Domain Scores: Attention = 131/215 (MILD) Memory = 116/185 (MILD -- HOWEVER RIGHT AT THE BOTTOM OF THE MILD SEVERITY CUT OFF RANGE (140-115) SO WOULD RATE HIM MILD TO MODERATE) Executive Functioning = 6/40 (SEVERE) Language = 23/37 (MODERATE) Visuospatial Skills = 47/105 (MILD) Clock Drawing = 8/13 (MODERATE). At times, Pt showing signs of perseveration of task. He would start the task correctly, get distracted, forget the directions, and then continue with a new way (e.g., started making a square design for design generation and then made the same design for all 13 squares). Reference: Neuro-QoL instrument In past 7 days I had to read something several times to understand it: Sometimes (2-3 times) My thinking was slow: Often (once a day) I had to work really hard to pay attention or i would make a mistake: Often (once a day) I had trouble concentrating: Often (once a day) How much DIFFICULTY do you currently reading & following complex instructions (e.g. directions for new medication: A lot planning for & keeping appts that are not part of weekly routine: Somewhat managing your time to do most of your daily activities: None learning new tasks or instructions: Somewhat Neuro-QOL Score Raw Score: 22 T - Score: 37.0 Radiation Oncology Patient Plan Plan Plan: Will recommend Pt for weekly outpatient speech therapy to address moderate cognitive-linguistic impairment characterized by deficits in immediate and short-term memory, word retrieval, executive functioning, attention, problem solving/reasoning, and safety awareness. Pt would benefit from training in compensatory strategies for recall and word retrieval, as well as cognitive training to improve cognitive functioning. Without skilled ST services, the Pt is at risk for decreased independence completing daily living tasks. Recommendations Treatment Warranted: Yes Treatment Warranted: Receptive/ Expressive Language and Cognition Progress Prognosis: Good Frequency Frequency: 2x /Week Duration: 8 weeks Patient/Family Goal Patient/Family Goal: To improve cognitive-linguistic function so that Pt can return to independent living. Goals that are Established Determination:: Goals will be added/modified as deemed necessary and appropriate. Therapy will be discontinued when results of re-evaluation indicate therapy is no longer needed or lack of progress has been documented. Goal #1-5 Goal #1: Lisset will independently complete complex problem solving, reasoning, and executive function tasks including but not limited to functional ADL (i.e., managing finances, safety awareness, paying bills, medication management, meal planning, using cellphone) with 85% acc during 2/3 sessions. Goal #2: Lisset will complete moderately complex functional math, money, and time tasks with 85% acc independently across 3 measured opportunities. Goal #3: Lisset will complete basic to mod complex sustained, alternating, divided attention tasks with 85% acc independently across 3 measured opportunities. Goal #4: Lisset will independently demonstrate use of word finding strategies to complete complex convergent and divergent naming tasks progressing to conversation in 3 out of 4 word finding occurrences across 3 measured opportunities. Goal #5: Lisset will demonstrate comprehension via answering questions or with story retell with 85% acc given min cues following either oral presentation or decoding of a passage/directions across 3 measured opportunities. Education Patient has Indicated that the Following Identified Educational Needs: None The Patient has indicated that they have no educational or learning abilities that may effect their care.: Yes Patient Instruction Patient Education: Diagnosis, Treatment Plan and Goals Person Taught: Patient and Family Teaching Method: Discussion and Demonstration Response to teaching: Return Demonstration and Verbalize Understanding
--- NOTE | 2025-07-18 10:58 | HP.SP.REEV ---
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 He was recently d/c from inpatient rehabilitation on 06/01 following participation in speech therapy for a week a half (3 days acute, 5 days inpatient rehab). Per patient history from recent hospital admission, Pt was found outside in his car without pants on, the police were called, and he was taken to the ER. Patient was accompanied to his evaluation with his son, Lisset, and daughter, Migel, who helped serve as historians. He is currently living with his sister who provides supervision 07/06. There hope for Pt is for him to be independent again along with driving. Both reporting there were cognitive changes prior to this CVA that caused this admission to the hospital. Family noticing difficulty with word finding or giving up during conversation such as ah, never mind. 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 Prior to admission, Lisset was writing checks to pay bills which family reports looked okay after reviewing several between now and this past December. He also previously managed his own medications but family reporting he was having difficulty with his blood pressure, so they suspect he may have started to forget to take the medications. Lisset (son) reporting that Pt will brush off things when they get challenging and lacks deficit awareness. Lisset (son) reporting they are considering selling Pt's house and finding a smaller apartment/condo for him in town. Hobbies include watching sports and playing poker with his friends. Medications related to this diagnosis: Eliquis (5 mg, BID), Atorvastatin (40 mg, QHS), Furosemide/Lasix (40 mg, daily), Lisinopril (10 mg, daily), Metoprolol tartrate (25 mg, BID) Smoking Status: Never smoker Diagnosis Diagnosis: CVA; Moderate Cognitive Linguistic Dysfunction Pain Is pain an issue with your current prescribed condition?: No Personal Preferred language: Bengali Patient Allergies Allergies Allergies: Allergies sulfamethoxazole (From Bactrim) Adverse Reaction (Intermediate, Verified 06/29/25 08:47) Rash trimethoprim (From Bactrim) Adverse Reaction (Intermediate, Verified 06/29/25 08:47) Rash Previous/Current Goals Goals 1-5 Previous Goal #1: Lisset will independently complete complex problem solving, reasoning, and executive function tasks including but not limited to functional ADL (i.e., managing finances, safety awareness, paying bills, medication management, meal planning, using cellphone) with 85% acc during 2/3 sessions. Goal 1 Status: PROGRESSING TOWARDS GOAL: DATA FROM 06/12/25: Pt completed a medication management task via identifying errors in an AM/PM med box with four medications and five errors with 0% acc independently and benefited from MAXIMUM visual and verbal assist to complete the task. DATA FROM 07/13/25: ST presented a finance management worksheet where Pt was asked to organize a check book via the transactions by date, transaction item, check number, running balance, and deposit number. He completed this task 65% independently which increased to 85% given MODERATE TO MAXIMUM cues on placement for specific targets and math formulas. Pt initially started the task by listing all of the dates and the transaction item name. He then went back through the list and added the check numbers. Then he went back through the transaction list to add in the amounts for each item. He benefited from mod verbal and visual cues to assist with organization of task via focusing on one transaction at a time and completing all the tavera necessary to record that transaction. Pt then transferring the transaction amount whether debit or credit to the balance column vs finding the new total balance. He benefited from mod-max assist on when to add and subtract and making sure he was using the right +/- function on the calculator. At the end of the session, Pt showing ST his own personal checkbook where he also only transfers transaction amounts to the balance column (like he did in the task today) vs finding the new running balance. When ST asked Pt how he knew how much money was in his account, he shrugged his shoulders and stated he had enough. Pt reporting his family does not check his finances. ST discussed Pt bringing in bank statements and checkbook for next session if he felt comfortable with her seeing his financials. Previous Goal #2: Lisset will complete moderately complex functional math, money, and time tasks with 85% acc independently across 3 measured opportunities. Goal 2 Status: PROGRESSING TOWARDS GOAL: DATA FROM 06/12/25: Pt completing time task via placing hands on a clock given a target time and a blank clock with 50% acc independently and benefited from mod-max cues to fix errors to improve to 100%. He was able to identify the errors 80% (4/5) of the time. Lisset completed calculating pictures of money with 87.5% acc independently and found the erred item and fixed it after being told one of the items was incorrect. DATA FROM 06/15/25: Pt returning his HW from Wednesday where he completed a money calculation task with 66% acc independently and writing hands on a clock to match the target time with 75% acc independently. Previous Goal #3: Lisset will complete basic to mod complex sustained, alternating, divided attention tasks with 85% acc independently across 3 measured opportunities. Goal 3 Status: PROGRESSING TOWARDS GOAL: DATA FROM 06/12/25: During the medication management task Lisset sustained attention to the medication he was checking with 14% acc before getting distracted. He required MAX CUES from ST to cover up days and prescriptions with a notecard to keep his attention on the pill he was checking along with encouragement to scan left to right when checking for errors. DATA FROM 06/18/25: Lisset completed alternating attention task via using clues to complete a schedule. He had to read a paragraph and pull information from the paragraph to fill in the schedule with 20% acc independently and benefited from mod verbal and logical cues to improve to 90%. DATA FROM 06/25/25: Lisset completed an alternating attention task via connecting colored dots (6 colors, 5 of each dot) in a designated order with 66% acc independently and improved to 100% given min-mod verbal, logical, and visual cues. Previous Goal #4: Lisset will independently demonstrate use of word finding strategies to complete complex convergent and divergent naming tasks progressing to conversation in 3 out of 4 word finding occurrences across 3 measured opportunities. Goal 4 Status: PROGRESSING TOWARDS GOAL: DIVERGENT NAMING: Pt completing divergent naming tasks with between 20-90% acc independently and often benefiting from moderate verbal and semantic cues to improve to 100% acc CONVERGENT NAMING: Pt completing convergent naming tasks with 20-50% acc independently and benefiting from mod-max verbal and semantic cues to improve to 100% acc Previous Goal #5: Lisset will demonstrate comprehension via answering questions or with story retell with 85% acc given min cues following either oral presentation or decoding of a passage/directions across 3 measured opportunities. Goal 5 Status: NOT TARGETED YET -- WILL CONTINUE WITH GOAL Pt did return homework that he received in the hospital that targeted reading comprehension from a 2-3 sentence story with him scoring 100% acc in the questions. Suspect Pt would benefit from more challenging stories as we continue to work towards this goal. CLQT CLQT CLQT Administered: Yes CLQT: Cognitive Linguistic Quick Test (CLQT) is a criterion - referenced assessment designed for adults between the ages of 18 and 89 with known or suspected neurological dysfuntions. The CLQT is to assess strength and weaknesses in five cognitive domains. Severity ratings are within normal limits, mild, moderate, severe deficits. The subtests are as follows: Date: 06/04/25 Attention Attention: Mild Memory Memory: Mild Executive Functions Executive Functions: Severe Language Language: Moderate Visuospatial Skills Visuospatial Skills: Mild Composite Severity Rating Composite Severity Rating: Moderate Clock Drawing Severity Rating Clock Drawing Severity Rating: Moderate CLQT Comments Cognitive Domain Scores: -: Results of the CLQT are as follows: Cognitive Domain Scores ? Personal Facts (memory and language ability): 06/22 (WITHIN CRITERION CUT OFF -- INITIALLY GOT DISTRACTED WHEN REPORTING HIS YEAR STATING WELL 1968 IS WHEN I GRADUATED. WITH A PROMPT, HE WAS EASILY REDIRECTED TO STATE 1950) ? Symbol Cancellation (nonlinguistic task of visual attention and perception, integrity of the upper/lower quadrants of the left/right visual tavera): 10/26 (WITHIN CRITERION CUT OFF) ? Confrontation Naming (aphasia, perseveration, verbosity): 08/24 (WITHIN CRITERION CUT OFF) ? Clock Drawing (screening of all cognitive domains): 06/27 (MODERATE SEVERITY) ? Story Retelling (memory and comprehension, arousal, attention, storage capacity, narrative skills): 01/22 (BELOW CRITERION CUT OFF) ? Symbol Trails (nonlinguistic task to assess planning, self-monitoring, working memory, and visual attention, and impulsivity): 01/22 (BELOW CRITERION CUT OFF) ? Generative Naming (word retrieval skills, perseveration): 12/24 (BELOW CRITERION CUT OFF) ? Design Memory (nonlinguistic task to assess visual discrimination & analysis, attention, and visual memory, impulsivity, perseveration): 4/6 (WITHIN CRITERION) ? Mazes (planning, mental flexibility, self-monitoring, visual discrimination, and impulsivity): 0/8 (BELOW CRITERION CUT OFF) ? Design Generation (nonlinguistic task of creativity and mental flexibility): 11/27 (BELOW CRITERION CUT OFF) Severity Rating Domain Scores: Attention = 131/215 (MILD) Memory = 116/185 (MILD -- HOWEVER RIGHT AT THE BOTTOM OF THE MILD SEVERITY CUT OFF RANGE (140-115) SO WOULD RATE HIM MILD TO MODERATE) Executive Functioning = 6/40 (SEVERE) Language = 23/37 (MODERATE) Visuospatial Skills = 47/105 (MILD) Clock Drawing = 06/27 (MODERATE). At times, Pt showing signs of perseveration of task. He would start the task correctly, get distracted, forget the directions, and then continue with a new way (e.g., started making a square design for design generation and then made the same design for all 13 squares). Reference: Neuro-QoL instrument In past 7 days I had to read something several times to understand it: Sometimes (2-3 times) My thinking was slow: Often (once a day) I had to work really hard to pay attention or i would make a mistake: Often (once a day) I had trouble concentrating: Often (once a day) How much DIFFICULTY do you currently reading & following complex instructions (e.g. directions for new medication: A lot planning for & keeping appts that are not part of weekly routine: Somewhat managing your time to do most of your daily activities: None learning new tasks or instructions: Somewhat Neuro-QOL Score Raw Score: 22 T - Score: 37.0 Radiation Oncology Patient Plan Plan Plan: Will recommend Pt for weekly outpatient speech therapy to address moderate cognitive-linguistic impairment characterized by deficits in immediate and short-term memory, word retrieval, executive functioning, attention, problem solving/reasoning, and safety awareness. Pt would benefit from training in compensatory strategies for recall and word retrieval, as well as cognitive training to improve cognitive functioning. Without skilled ST services, the Pt is at risk for decreased independence completing daily living tasks. Recommendations Treatment Warranted: Yes Treatment Warranted: Receptive/ Expressive Language and Cognition Progress Prognosis: Good Frequency Frequency: 2x /Week Duration: 8 weeks Patient/Family Goal Patient/Family Goal: To improve cognitive-linguistic function so that Pt can return to independent living. Goals that are Established Determination:: Goals will be added/modified as deemed necessary and appropriate. Therapy will be discontinued when results of re-evaluation indicate therapy is no longer needed or lack of progress has been documented. Goal #1-5 Goal #1: Lisset will independently complete complex problem solving, reasoning, and executive function tasks including but not limited to functional ADL (i.e., managing finances, safety awareness, paying bills, medication management, meal planning, using cellphone) with 85% acc during 2/3 sessions. Goal #2: Lisset will complete moderately complex functional math, money, and time tasks with 85% acc independently across 3 measured opportunities. Goal #3: Lisset will complete basic to mod complex sustained, alternating, divided attention tasks with 85% acc independently across 3 measured opportunities. Goal #4: Lisset will independently demonstrate use of word finding strategies to complete complex convergent and divergent naming tasks progressing to conversation in 3 out of 4 word finding occurrences across 3 measured opportunities. Goal #5: Lisset will demonstrate comprehension via answering questions or with story retell with 85% acc given min cues following either oral presentation or decoding of a passage/directions across 3 measured opportunities. Education Patient has Indicated that the Following Identified Educational Needs: None The Patient has indicated that they have no educational or learning abilities that may effect their care.: Yes Patient Instruction Patient Education: Diagnosis, Treatment Plan and Goals Person Taught: Patient and Family Teaching Method: Discussion and Demonstration Response to teaching: Return Demonstration and Verbalize Understanding
--- NOTE | 2025-08-24 12:34 | HP.SPREEV_ITS ---
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 He was recently d/c from inpatient rehabilitation on 06/01 following participation in speech therapy for a week a half (3 days acute, 5 days inpatient rehab). Per patient history from recent hospital admission, Pt was found outside in his car without pants on, the police were called, and he was taken to the ER. Patient was accompanied to his evaluation with his son, Darrell, and daughter, Migel, who helped serve as historians. He is currently living with his sister who provides supervision 07/06. There hope for Pt is for him to be independent again along with driving. Both reporting there were cognitive changes prior to this CVA that caused this admission to the hospital. Family noticing difficulty with word finding or giving up during conversation such as ah, never mind. 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 Prior to admission, Darrell was writing checks to pay bills which family reports looked okay after reviewing several between now and this past December. He also previously managed his own medications but family reporting he was having difficulty with his blood pressure, so they suspect he may have started to forget to take the medications. Darrell (son) reporting that Pt will brush off things when they get challenging and lacks deficit awareness. Darrell (son) reporting they are considering selling Pt's house and finding a smaller apartment/condo for him in town. Hobbies include watching sports and playing poker with his friends. Medications related to this diagnosis: Eliquis (5 mg, BID), Atorvastatin (40 mg, QHS), Furosemide/Lasix (40 mg, daily), Lisinopril (10 mg, daily), Metoprolol tartrate (25 mg, BID) Smoking Status: Never smoker Diagnosis Diagnosis: CVA; Moderate Cognitive Linguistic Dysfunction Pain Is pain an issue with your current prescribed condition?: No Personal Preferred language: Haitian Patient Allergies Allergies Allergies: Allergies sulfamethoxazole (From Bactrim) Adverse Reaction (Intermediate, Verified 08/22/25 15:13) Rash trimethoprim (From Bactrim) Adverse Reaction (Intermediate, Verified 08/22/25 15:13) Rash Previous/Current Goals Goals 1-5 Previous Goal #1: Darrell will independently complete complex problem solving, reasoning, and executive function tasks including but not limited to functional ADL (i.e., managing finances, safety awareness, paying bills, medication management, meal planning, using cellphone) with 85% acc during 2/3 sessions. Goal 1 Status: PROGRESSING TOWARDS GOAL: - DATA FROM 07/30/25: Pt participating in calendar planning activity where he was required to view a list of tasks and dates and organize them on a monthly calendar. Pt was able to darrell events independently with 55% acc, increasing to 70% acc given min verbal cues and 90% given mod to max verbal cues. Pt seemed to benefit from min to mod verbal cues from ST when completing more complex tasks such as calculating new dates to mail cards and checks. - DATA FROM 08/06/25: Pt participating in writing out the steps to making a peanut butter and jelly sandwich. Pt achieving 40% acc given mod verbal cues and the first step provided by ST. Pt participating in writing out steps to washing a car and achieving 50% acc given max verbal cues from ST. data from 08/13/25-08/17/25: Pt participating in sequencing activity where he was required to sequence a task when provided with 8 written steps. Pt achieving between 40-43% acc independently which increased to 81-100% acc given mod to max verbal cues and the first step provided by ST. Previous Goal #2: Darrell will complete moderately complex functional math, money, and time tasks with 85% acc independently across 3 measured opportunities. Goal 2 Status: GOAL NOT TARGETED THESE PAST 10 VISITS -- FOCUS WAS MOSTLY ON GOAL 4 TO ASSIST IN DEVELOPING EXPRESSIVE LANGUAGE SKILLS. WILL CONTINUE WITH THIS GOAL. Previous Goal #3: Darrell will complete basic to mod complex sustained, alternating, divided attention tasks with 85% acc independently across 3 measured opportunities. Goal 3 Status: PROGRESSING TOWARDS GOAL (NEEDS TO BE MET ACROSS ONE OTHER OPPORTUNITY): - DATA FROM 07/30/25: Interrupted Pt in the middle of his calendar task for about 2 min with conversation -- Pt functional in returning and reorienting to task with no cues. - DATA FROM 08/03/25: Darrell was tasked with alternating and sustained attention task via a card game of High/Low where he was given a target card and a display of cards in front of him. He needed to take a card from the display but was restricted by only picking cards that were not covered by other cards. The card selected needed to be one higher or lower than the target card in front of him. Darrell benefited from supervision at the beginning of the task but then cueing faded as he started to understand the process of the game. He completed a total of three rounds of this game independently with 95% acc and intermittently benefited from reminders that he couldn't place two matching cards on top of each other. Previous Goal #4: Darrell will independently demonstrate use of word finding strategies to complete complex convergent and divergent naming tasks progressing to conversation in 3 out of 4 word finding occurrences across 3 measured opportunities. Goal 4 Status: PROGRESSING TOWARDS GOAL: - DATA FROM 07/27/25: Pt participating in naming task where he was required to de scribe and name items while playing [employer] with ST. During first half of session, Pt and ST took turns describing and naming items. Pt achieved 40% acc given max verbal cues when he was describing an item and 60% acc given mod verbal cues when he was naming an item that ST described. ST introduced description strategies (group, do, look like, made of, parts, where do you find it) which seemed to overwhelm him. To better support Pt's current skill level ST modified activity to a convergent naming task where Darrell was tasked to identify the group name of each picture item. Pt achieved 56% acc with this convergent naming task and required mod to max verbal cues. - DATA FROM 08/06/25: Pt participating in 8 step direction task where he was instructed to write out his own steps to a task and repeat the steps in order. Pt achieving 25% acc given min verbal cues on first trial, increasing to 40% given mod to max verbal cues. Pt noted at end of session he had more difficulty with word finding during task compared to writing down steps in order using executive function skills. - DATA FROM 08/17/25: Pt participating in word finding task when directed to verbally produce the steps in order to wash a car and rake leaves after sequencing the written steps. Pt achieving 0% acc independently, increasing to 60% acc given max verbal and written cues from ST. - DATA FROM 08/20/25: Pt participating in word finding task where ST read 12 sports-related prompts and Pt had to determine the player position. Pt achieving 75% increasing to 100% given min verbal and gestural cues. At end of session, ST asking Pt to describe his grandson's football game which he attended this past weekend. Pt produced 1-3 simple sentences, then strayed from topic and began presenting off-topic photos and text messages to ST. Throughout this task, Pt asked, What am I supposed to be talking about, again? 2 times. Pt seemed to provide more details and stay on task once he put his phone away and ST repeated instructions. Previous Goal #5: Darrell will demonstrate comprehension via answering questions or with story retell with 85% acc given min cues following either oral presentation or decoding of a passage/directions across 3 measured opportunities. Goal 5 Status: GOAL NOT TARGETED THESE PAST 10 VISITS -- FOCUS WAS MOSTLY ON GOAL 4 TO ASSIST IN DEVELOPING EXPRESSIVE LANGUAGE SKILLS. WILL CONTINUE WITH THIS GOAL. CLQT CLQT CLQT Administered: Yes CLQT: Cognitive Linguistic Quick Test (CLQT) is a criterion - referenced assessment designed for adults between the ages of 18 and 89 with known or suspected neurological dysfuntions. The CLQT is to assess strength and weaknesses in five cognitive domains. Severity ratings are within normal limits, mild, moderate, severe deficits. The subtests are as follows: Date: 06/04/25 Attention Attention: Mild Memory Memory: Mild Executive Functions Executive Functions: Severe Language Language: Moderate Visuospatial Skills Visuospatial Skills: Mild Composite Severity Rating Composite Severity Rating: Moderate Clock Drawing Severity Rating Clock Drawing Severity Rating: Moderate CLQT Comments Cognitive Domain Scores: -: Results of the CLQT are as follows: Cognitive Domain Scores ? Personal Facts (memory and language ability): 06/22 (WITHIN CRITERION CUT OFF -- INITIALLY GOT DISTRACTED WHEN REPORTING HIS YEAR STATING WELL 1967 IS WHEN I GRADUATED. WITH A PROMPT, HE WAS EASILY REDIRECTED TO STATE 1949) ? Symbol Cancellation (nonlinguistic task of visual attention and perception, integrity of the upper/lower quadrants of the left/right visual tavera): 10/26 (WITHIN CRITERION CUT OFF) ? Confrontation Naming (aphasia, perseveration, verbosity): 08/24 (WITHIN CRITERION CUT OFF) ? Clock Drawing (screening of all cognitive domains): 06/27 (MODERATE SEVERITY) ? Story Retelling (memory and comprehension, arousal, attention, storage capacity, narrative skills): 01/22 (BELOW CRITERION CUT OFF) ? Symbol Trails (nonlinguistic task to assess planning, self-monitoring, working memory, and visual attention, and impulsivity): 3/ (BELOW CRITERION CUT OFF) ? Generative Naming (word retrieval skills, perseveration): 12/24 (BELOW CRITERION CUT OFF) ? Design Memory (nonlinguistic task to assess visual discrimination & analysis, attention, and visual memory, impulsivity, perseveration): 4/ (WITHIN CRITERION) ? Mazes (planning, mental flexibility, self-monitoring, visual discrimination, and impulsivity): 0/8 (BELOW CRITERION CUT OFF) ? Design Generation (nonlinguistic task of creativity and mental flexibility): 11/27 (BELOW CRITERION CUT OFF) Severity Rating Domain Scores: Attention = 131/215 (MILD) Memory = 116/185 (MILD -- HOWEVER RIGHT AT THE BOTTOM OF THE MILD SEVERITY CUT OFF RANGE (140-115) SO WOULD RATE HIM MILD TO MODERATE) Executive Functioning = 6/40 (SEVERE) Language = 23/37 (MODERATE) Visuospatial Skills = 47/105 (MILD) Clock Drawing = 06/27 (MODERATE). At times, Pt showing signs of perseveration of task. He would start the task correctly, get distracted, forget the directions, and then continue with a new way (e.g., started making a square design for design generation and then made the same design for all 13 squares). Reference: Neuro-QoL instrument In past 7 days I had to read something several times to understand it: Sometimes (2-3 times) My thinking was slow: Often (once a day) I had to work really hard to pay attention or i would make a mistake: Often (o nce a day) I had trouble concentrating: Often (once a day) How much DIFFICULTY do you currently reading & following complex instructions (e.g. directions for new medication: A lot planning for & keeping appts that are not part of weekly routine: Somewhat managing your time to do most of your daily activities: None learning new tasks or instructions: Somewhat Neuro-QOL Score Raw Score: 22 T - Score: 37.0 Radiation Oncology Patient Plan Plan Plan: Will recommend Pt for weekly outpatient speech therapy to address moderate cognitive-linguistic impairment characterized by deficits in immediate and short-term memory, word retrieval, executive functioning, attention, problem solving/reasoning, and safety awareness. Pt would benefit from training in compensatory strategies for recall and word retrieval, as well as cognitive training to improve cognitive functioning. Without skilled ST services, the Pt is at risk for decreased independence completing daily living tasks. Recommendations Treatment Warranted: Yes Treatment Warranted: Receptive/ Expressive Language and Cognition Progress Prognosis: Good Frequency Frequency: 2x /Week Duration: 8 weeks Patient/Family Goal Patient/Family Goal: To improve cognitive-linguistic function so that Pt can return to independent living. Goals that are Established Determination:: Goals will be added/modified as deemed necessary and appropria te. Therapy will be discontinued when results of re-evaluation indicate therapy is no longer needed or lack of progress has been documented. Goal #1-5 Goal #1: Darrell will independently complete complex problem solving, reasoning, and executive function tasks including but not limited to functional ADL (i.e., managing finances, safety awareness, paying bills, medication management, meal planning, using cellphone) with 85% acc during 2/3 sessions. Goal #2: Darrell will complete moderately complex functional math, money, and time tasks with 85% acc independently across 3 measured opportunities. Goal #3: Darrell will complete basic to mod complex sustained, alternating, divided attention tasks with 85% acc independently across 3 measured opportunities. Goal #4: Darrell will independently demonstrate use of word finding strategies to complete complex convergent and divergent naming tasks progressing to conversation in 3 out of 4 word finding occurrences (75% acc) across 3 measured opportunities. Goal #5: Darrell will demonstrate comprehension via answering questions or with story retell with 85% acc given min cues following either oral presentation or decoding of a passage/directions across 3 measured opportunities. Education Patient has Indicated that the Following Identified Educational Needs: None The Patient has indicated that they have no educational or learning abilities that may effect their care.: Yes Patient Instruction Patient Education: Diagnosis, Treatment Plan and Goals Person Taught: Patient and Family Teaching Method: Discussion and Demonstration Response to teaching: Return Demonstration and Verbalize Understanding
--- NOTE | 2025-09-24 12:21 | HP.SP.REEV ---
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 He was recently d/c from inpatient rehabilitation on 06/01 following participation in speech therapy for a week a half (3 days acute, 5 days inpatient rehab). Per patient history from recent hospital admission, Pt was found outside in his car without pants on, the police were called, and he was taken to the ER. Patient was accompanied to his evaluation with his son, Lisset, and daughter, Migel, who helped serve as historians. He is currently living with his sister who provides supervision 07/06. There hope for Pt is for him to be independent again along with driving. Both reporting there were cognitive changes prior to this CVA that caused this admission to the hospital. Family noticing difficulty with word finding or giving up during conversation such as ah, never mind. 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 Prior to admission, Lisset was writing checks to pay bills which family reports looked okay after reviewing several between now and this past December. He also previously managed his own medications but family reporting he was having difficulty with his blood pressure, so they suspect he may have started to forget to take the medications. Lisset (son) reporting that Pt will brush off things when they get challenging and lacks deficit awareness. Lisset (son) reporting they are considering selling Pt's house and finding a smaller apartment/condo for him in town. Hobbies include watching sports and playing poker with his friends. Medications related to this diagnosis: Eliquis (5 mg, BID), Atorvastatin (40 mg, QHS), Furosemide/Lasix (40 mg, daily), Lisinopril (10 mg, daily), Metoprolol tartrate (25 mg, BID) Smoking Status: Never smoker Diagnosis Diagnosis: CVA; Moderate Cognitive Linguistic Dysfunction Pain Is pain an issue with your current prescribed condition?: No Personal Preferred language: Korean Patient Allergies Allergies Allergies: Allergies sulfamethoxazole (From Bactrim) Adverse Reaction (Intermediate, Verified 08/22/25 15:13) Rash trimethoprim (From Bactrim) Adverse Reaction (Intermediate, Verified 08/22/25 15:13) Rash Previous/Current Goals Goals 1-5 Previous Goal #1: Lisset will independently complete complex problem solving, reasoning, and executive function tasks including but not limited to functional ADL (i.e., managing finances, safety awareness, paying bills, medication management, meal planning, using cellphone) with 85% acc during 2/3 sessions. Goal 1 Status: PROGRESSING TOWARDS GOAL: - DATA FROM 08/27/2025 = During the [employer] game when ST or post graduate internship made intentional mistakes, Pt was able to immediately recognize the mistake and verbally explain what went wrong in 75% of opportunities. When Pt made a mistake during the game and ST or grad student questioned him, Pt explained why he thought he was right or self corrected with 25% acc (11/18). Previous Goal #2: Lisset will complete moderately complex functional math, money, and time tasks with 85% acc independently across 3 measured opportunities. Goal 2 Status: PROGRESSING TOWARDS GOAL: - DATA FROM 08/31/2025 = Pt participating in time activity where he was presented with 10 time calculation tasks requiring him to use math skills to produce correct times for each situation. Pt achieving 20% acc independently improving to 80% given mod to max verbal and written cues. Pt required more written and verbal cues once tasks became more complex. When ST asked Pt how he formulated his correct response, Pt stating, I don't know I just did it. Pt participating in sports related numerical problem solving activity requiring him to use math and time skills to answer 10 football related questions. Pt achieving 50% acc independently improving to 100% given min verbal and written cues. - DATA FROM 09/04/2025 = Pt participating in sports related numerical problem solving activity requiring him to use math and time skills to answer 6 basketball related questions. Pt achieving 83% acc independently improving to 100% given min verbal and written cues. Previous Goal #3: Lisset will complete basic to mod complex sustained, alternating, divided attention tasks with 85% acc independently across 3 measured opportunities. Goal 3 Status: GOAL STAGNANT -- WILL REMOVE THIS GOAL AND FOCUS MORE ON WORD FINDING - DATA FROM 08/27/2025 = Lisset participated in blackjack card game with ST and post graduate internship. He achieved 65% acc maintaining sustained attention during the task and sometimes changed the rules of the game with no self awareness. Fci through the session, he forgot that we were playing against a dealer rather than each other. He changed some rules and needed mod verbal cues from ST to revert back to the original version of the game. Previous Goal #4: Lisset will independently demonstrate use of word finding strategies to complete complex convergent and divergent naming tasks progressing to conversation in 3 out of 4 word finding occurrences (75% acc) across 3 measured opportunities. Goal 4 Status: PROGRESSING TOWARDS GOAL: ATTEMPTED TO TARGET THIS GOAL WITH FAMILIAR ACTIVITIES IN HOPES THIS WOULD HELP REDUCE WORD FINDING ERRORS. 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 - DATA FROM 08/27/2025 = Pt participating in activity requiring him to explain and demonstrate the rules of [employer] to ST and post graduate internship. Pt achieving 65% acc independently describing rules of game throughout session and required min to mod verbal cues to explain details more thoroughly. At the beginning of the session, he was prompted to first explain the rules of the game. Instead, he began dealing cards and used empty phrases such as, you go here and you're gonna wanna do this while gesturing. He gestured frequently and appeared to attempt to verbalize but his language was empty and repetitive. When asked about the rule of splitting identical cards, Pt needed max verbal cues in order to explain that the cards needed to be the same number. On one occasion, ST stating she was confused when he switched the rules snf through the game where they were playing against each other instead of against the dealer. Pt stating disregarded comment and attempted to move on, so he benefited from max logical and verbal cues to verbalize what he was doing and in the end suggested we can play however you want to play. - DATA FROM 09/04/2025 = Pt participating in activity requiring him to draw out and explain [address] and post graduate internship. Pt achieving 0% acc increasing to 75% given max verbal cues. Pt unable to draw out first play and stated it was hard to choose a singular play because he knows so many. After receiving assistance with first play, Pt was able to draw out remainder plays. When asked to describe what was happening in each play Pt describing with 0% acc independently. Pt used empty speech such as he goes there or he throws the ball there while pointing to the drawing vs. this player sets a screen and the other will drive to the valencia. ST observing Pt unable to use familiar basketball vocabulary throughout activity such as valencia, half court, player, offense, defense, baseline, out of bounds, and screen which he could've used when describing how the play is to run. - DATA FROM 09/07/2025 = Pt participating in activity requiring him to draw out and explain [address] and post graduate internship. 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 Pt achieving 0% acc increasing to 60% given max verbal cues. Pt unable to draw out first play and flipped through his playbook for an extended period of time trying to find the play. After receiving assistance with finding the play, Pt was still unable to draw it. ST providing blank play sheet with 4 steps rather than a single court which seemed to benefit Pt. When asked to describe what was happening in each play Pt describing with 0% acc independently. Pt used empty speech such as he goes there or he throws the ball there while pointing to the drawing vs. this player sets a screen and the other will drive to the valencia. ST prompting Pt with What's that area called? while pointing to the valencia, and Pt was able to name it with a delayed response. Pt describing steps of play with more accuracy when given more direction and specific prompts from ST. - DATA FROM 09/24/2025 = Pt participating in VNEST sentence production activity requiring him to create a sentence using WHO, WHAT, WHERE, WHY, WHEN, when given a verb. Pt achieving independently 83% acc producing WHO, 50% acc producing WHAT, 50% producing WHERE, 50% producing WHEN, and 0% producing WHY. All increased to 100% when given max verbal cues from ST. Previous Goal #5: Lisset will demonstrate comprehension via answering questions or with story retell with 85% acc given min cues following either oral presentation or decoding of a passage/directions across 3 measured opportunities. Goal 5 Status: PROGRESSING TOWARDS GOAL: - DATA FROM 09/10/25 = Pt participating in a reading comprehension task requiring him to listen to 5 short stories, answer 5 questions related to each story, and retell each story at the end of task. Pt achieving 44% independently answering comprehension questions related to stories increasing to 100% given mod to max verbal cues. Pt stating, I don't remember initially after ST read story 1x and began asking comprehension questions. Pt required all stories to be read 2-3 times before answering comprehension questions. - DATA FROM 09/14/2025 = Pt participating in a reading comprehension task requiring him to listen to 10 short stories, answer 4-5 questions related to each story, and retell each story at the end of task. Pt achieving 52% independently answering comprehension questions related to stories increasing to 100% given mod to max verbal cues. Pt stating, I don't remember initially after ST read story 1x and began asking comprehension questions. Pt required all stories to be read 2-3 times before answering comprehension questions. - DATA FROM 09/17/2025 = Pt participating in a reading comprehension task requiring him to listen to 5 short stories and answer 4-5 yes/no questions related to each story at the end of task. Pt achieving 88% independently answering yes/no comprehension questions related to stories increasing to 100% given min verbal cues. Pt performing with higher accuracy with this task compared to prior session provided with yes/no questions rather than open-ended. Pt required all stories to be read 2x before answering comprehension questions. CLQT CLQT CLQT Administered: Yes CLQT: Cognitive Linguistic Quick Test (CLQT) is a criterion - referenced assessment designed for adults between the ages of 18 and 89 with known or suspected neurological dysfuntions. The CLQT is to assess strength and weaknesses in five cognitive domains. Severity ratings are within normal limits, mild, moderate, severe deficits. The subtests are as follows: Date: 06/04/25 Attention Attention: Mild Memory Memory: Mild Executive Functions Executive Functions: Severe Language Language: Moderate Visuospatial Skills Visuospatial Skills: Mild Composite Severity Rating Composite Severity Rating: Moderate Clock Drawing Severity Rating Clock Drawing Severity Rating: Moderate CLQT Comments Cognitive Domain Scores: -: Results of the CLQT are as follows: Cognitive Domain Scores ? Personal Facts (memory and language ability): 06/22 (WITHIN CRITERION CUT OFF -- INITIALLY GOT DISTRACTED WHEN REPORTING HIS YEAR STATING WELL 1967 IS WHEN I GRADUATED. WITH A PROMPT, HE WAS EASILY REDIRECTED TO STATE 1949) ? Symbol Cancellation (nonlinguistic task of visual attention and perception, integrity of the upper/lower quadrants of the left/right visual tavera): 10/26 (WITHIN CRITERION CUT OFF) ? Confrontation Naming (aphasia, perseveration, verbosity): 08/24 (WITHIN CRITERION CUT OFF) ? Clock Drawing (screening of all cognitive domains): 06/27 (MODERATE SEVERITY) ? Story Retelling (memory and comprehension, arousal, attention, storage capacity, narrative skills): 01/22 (BELOW CRITERION CUT OFF) ? Symbol Trails (nonlinguistic task to assess planning, self-monitoring, working memory, and visual attention, and impulsivity): 01/22 (BELOW CRITERION CUT OFF) ? Generative Naming (word retrieval skills, perseveration): 12/24 (BELOW CRITERION CUT OFF) ? Design Memory (nonlinguistic task to assess visual discrimination & analysis, attention, and visual memory, impulsivity, perseveration): 02/18 (WITHIN CRITERION) ? Mazes (planning, mental flexibility, self-monitoring, visual discrimination, and impulsivity): 0 (BELOW CRITERION CUT OFF) ? Design Generation (nonlinguistic task of creativity and mental flexibility): 11/27 (BELOW CRITERION CUT OFF) Severity Rating Domain Scores: Attention = 131/215 (MILD) Memory = 116/185 (MILD -- HOWEVER RIGHT AT THE BOTTOM OF THE MILD SEVERITY CUT OFF RANGE (140-115) SO WOULD RATE HIM MILD TO MODERATE) Executive Functioning = 6/40 (SEVERE) Language = 23/37 (MODERATE) Visuospatial Skills = 47/105 (MILD) Clock Drawing = 06/27 (MODERATE). At times, Pt showing signs of perseveration of task. He would start the task correctly, get distracted, forget the directions, and then continue with a new way (e.g., started making a square design for design generation and then made the same design for all 13 squares). Reference: Neuro-QoL instrument In past 7 days I had to read something several times to understand it: Sometimes (2-3 times) My thinking was slow: Often (once a day) I had to work really hard to pay attention or i would make a mistake: Often (once a day) I had trouble concentrating: Often (once a day) How much DIFFICULTY do you currently reading & following complex instructions (e.g. directions for new medication: A lot planning for & keeping appts that are not part of weekly routine: Somewhat managing your time to do most of your daily activities: None learning new tasks or instructions: Somewhat Neuro-QOL Score Raw Score: 22 T - Score: 37.0 Radiation Oncology Patient Plan Plan Plan: Will recommend Pt for weekly outpatient speech therapy to address moderate cognitive-linguistic impairment characterized by deficits in immediate and short-term memory, word retrieval, executive functioning, attention, problem solving/reasoning, and safety awareness. Pt would benefit from training in compensatory strategies for recall and word retrieval, as well as cognitive training to improve cognitive functioning. Without skilled ST services, the Pt is at risk for decreased independence completing daily living tasks. Recommendations Treatment Warranted: Yes Treatment Warranted: Receptive/ Expressive Language and Cognition Progress Prognosis: Good Frequency Frequency: 2x /Week Duration: 8 weeks Patient/Family Goal Patient/Family Goal: To improve cognitive-linguistic function so that Pt can return to independent living. Goals that are Established Determination:: Goals will be added/modified as deemed necessary and appropriate. Therapy will be discontinued when results of re-evaluation indicate therapy is no longer needed or lack of progress has been documented. Goal #1-5 Goal #1: Lisset will independently complete complex problem solving, reasoning, and executive function tasks including but not limited to functional ADL (i.e., managing finances, safety awareness, paying bills, medication management, meal planning, using cellphone) with 85% acc during 2/3 sessions. Goal #2: Lisset will complete moderately complex functional math, money, and time tasks with 85% acc independently across 3 measured opportunities. Goal #3: Lisset will generate 3 sentences when given a target verb following WHO+verb+WHAT structure with 5/6 acc given only min verbal and semantic cues across 3 consecutively measured sessions. Goal #4: Lisset will expand one of his WHO+verb+WHAT sentences to include WHERE, WHEN, and WHY with 100% acc given min verbal and semantic cues across 3 consecutively measured sessions. Goal #5: Lisset will demonstrate comprehension via answering questions or with story retell with 85% acc given min cues following either oral presentation or decoding of a passage/directions across 3 measured opportunities. Education Patient has Indicated that the Following Identified Educational Needs: None The Patient has indicated that they have no educational or learning abilities that may effect their care.: Yes Patient Instruction Patient Education: Diagnosis, Treatment Plan and Goals Person Taught: Patient and Family Teaching Method: Discussion and Demonstration Response to teaching: Return Demonstration and Verbalize Understanding
--- NOTE | 2025-11-06 15:11 | HP.SP.DC ---
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 He was picked up for therapy with goals targeted to improve problem solving, safety awareness, and executive functioning with ADL and iADL tasks along with targeting wording finding via implementing strategies and participating in strategically prepared conversations to elicit language. Pt participated in 35 sessions with Pt initially showing progress towards goals however more recently started to decline in status. Called Pt's sons on 10/30/25 see below for summary of conversation: Called and spoke with both José Luis and Lisset Londono this evening, separately. Relayed concerns with Lisset's cognition and aphasia symptoms. For a few weeks it seemed as though his progress was stagnant however recently, suspect he is more so declining. Relayed to both sons the medication incident from last session along with how he dropped pills onto the hallway floor. Lisset Londono. confirming that Pt is charge of his medications and that Pt gets frustrated and angry with anyone who asks him if he has taken his medication. ST also relaying that Pt stated he takes his medicine at 10 am and second dose at [address] tried to explain this was too close together with Pt not showing understanding of education. Lisset Londono stating that Pt does not get along with his sister, Miracle, whom he lives with -- ST also stating how Pt often speaks negatively of her. Also discussed how he has limited financial awareness via stating he wasn't worried about money coming in or how much was in his bank account when paying bills. Lisset Londono stating that Pt is in charge of his finances and that the family has access to his account -- they report observing Pt paying his bills with checks coming out of his account however unclear if they are checking to see if the amounts are correct. Lisset Londono also stating they have been noticing him writing checks for like $500 [place] and they are not sure what he is doing with it. Lisset Londono. reporting that Pt has been repeatedly showing messages and pictures on his phone for at least a few years prior to his stroke. I also briefly discussed his word finding declining as well -- discussed how I attempted to make therapy relatable to him by asking him to explain basketball plays or how to play poker (both of which are very familiar to him) but that Pt was unable to complete these tasks unless given maximum support and at times sometimes this was not enough. Recommended to both sons that Pt may benefit from participating in further neuropsychological assessment -- relaying that I was worried that Pt is not taking his medication as prescribed which may be putting him at risk for recurrent TIAs like he experienced at the beginning of this year. Lisset Londono reporting a hx of dementia with Pt's father being dx with this as well. Finally, recommended family consider assisted living for Pt so he could still feel independent with having his own room and not having to argue and cohabitate with his sister, however his medications would be taken care of by nursing staff and meals would be taken care of as well. Lisset Londono stating he was going to be home this weekend and would talk with his brother, José Luis, and sister, Migel, about next steps. I stated that I would keep his next two appts and then put him on hold while they decide what they want to do. The next day on 10/31/2025, the rest of Pt's appointments were cancelled. Notes in the chart stated he was in hospice. ST called José Luis for a welfare check since this was not mentioned in initial phone calls. His answered and stated that he was not in hospice so ST rebooked the appointments. Then on 11/01/2025, Pt's sister called and wanted to make sure his appointments were cancelled because he was receiving hospice care at home. Pt to be d/c at this time d/t appointments being canceled and Pt's decline in progress towards goals. Should there be a change in status, please return for re-evaluation by speech therapy following script from physician. Thank you for allowing me to participate in the care of your patient.
== END 2025-10-26 19:00 | disposition home or self-care (01) ==
LOC: SP 10:00
PROVIDERS: PCP Family Medicine; Referring Provider Internal Medicine; Visit Provider Internal Medicine
DX: I69.919 Unspecified symptoms and signs involving cognitive functions following unspecified cerebrovascular disease (principal); I69.328 Other speech and language deficits following cerebral infarction
CPT/HCPCS: 92507; 97129; 97130